=== PATIENT | female | born 1975 | race Caucasian/White ===

== ENCOUNTER 2018-07-04 05:25 | Emergency (ER) | payer MEDICAID ==
[2018-07-04 07:09] LABS: Absolute Lymphocytes (CBC) 1.7 K/uL (0.7-4.9); Absolute Monocytes 0.8 K/uL (0.1-1.3); Absolute Neutrophil 5.9 K/uL (1.8-8.0); Basophils % 0.7 % (0-1.3); Eosinophils % 2.1 % (0-4.4); MCH 27.3 pg (27.0-35.0); MCV 81.7 fL (80-100); MPV 7.5 fL (7.6-11.3); Monocytes % 8.8 % (3.3-12.3); RBC Red Blood Cell Count 4.53 M/uL (3.86-4.86)
[2018-07-04 07:10] LABS: Protime INR 0.98
[2018-07-04] MEDS ORDERED: LORazepam 2 MG/ML VIAL ONE ×2 (07:11→08:25)
[2018-07-04 07:49] LABS: ALT/SGPT 28 U/L (12-78); AST/SGOT 9 U/L (15-37); Albumin 4.2 g/dL (3.4-5.0); Alkaline Phosphatase 74 U/L (45-117); BUN Blood Urea Nitrogen 18 mg/dL (7-18); Bicarbonate 25 mmol/L (21-32); Bilirubin Direct 0.1 mg/dL (0-0.2); Bilirubin Total 0.4 mg/dL (0.2-1.0); Glucose Level 90 mg/dL (74-106); Potassium 3.4 mmol/L (3.5-5.1); Protein, Total 8.1 g/dL (6.4-8.2); Sodium Level 139 mmol/L (136-145)
[2018-07-04 07:50] LABS: Alcohol Serum/Plasma 12 mg/dL (<3)
[2018-07-04 08:04] LABS: Barbiturates NEGATIVE (NEGATIVE); Benzodiazepines NEGATIVE (NEGATIVE); Cocaine NEGATIVE (NEGATIVE); METHAMPHETAM NEGATIVE (NEGATIVE); Methadone NEGATIVE (NEGATIVE); Opiates NEGATIVE (NEGATIVE); Phencyclidine NEGATIVE (NEGATIVE); THC Cannibis POSITIVE (NEGATIVE)
[2018-07-04] MEDS ORDERED: ONDANSETRON 4 MG/2 ML VIAL ONE (08:25)
[2018-07-04] MEDS ORDERED: FAMOTIDINE 20 MG/2 ML VIAL IV ONE (08:26)
[2018-07-04] MEDS ORDERED: POTASSIUM 25 MEQ EFFERV TAB ONE (08:37)
[2018-07-04] MEDS ORDERED: WATER FOR INJ,STERILE 10 ML ONE (08:52)
[2018-07-04] MEDS ORDERED: ZIPRASIDONE MESYLA 20 MG/VIAL IM ONE (08:52)
[2018-07-04 09:34] LABS: Urine Blood TRACE (NEG); Urine Glucose NEGATIVE (NEG); Urine Protein TRACE (NEG)
--- NOTE | 2018-07-04 09:53 | ER ---
Nurse's Notes [facility] Name: Jennifer Salazar Age: 43 yrs Sex: Female : 1975 Arrival Date: 07/04/2018 Time: 05:27 Bed 16 Private MD: Diagnosis: Recreational Drug Abuse;Bipolar disorder Presentation: 07/04 05:30 Presenting complaint: Patient states: Pt states she has been smoking synthetic ea marijuana, pt stated it makes her incontinent. Pt states "I can't keep doing that shit!" Pt denies SI. states "I need help to quit this shit!". Transition of care: patient was not received from another setting of care. Onset of symptoms was July 04, 2018. Risk Assessment: Do you want to hurt yourself or someone else? Patient reports no desire to harm self or others. Initial Sepsis Screen: Does the patient meet any 2 criteria? No. Patient's initial sepsis screen is negative. Does the patient have a suspected source of infection? No. Patient's initial sepsis screen is negative. Care prior to arrival: None. 05:30 Method Of Arrival: Ambulatory ea 05:30 Acuity: BECKY 3 ea Triage Assessment: 05:41 General: Appears uncomfortable, Behavior is anxious, restless. Pain: Complains of pain ea in abdomen and headache. Historical: - Allergies: 05:41 No Known Allergies; ea - Home Meds: 05:41 Xanax 2 mg Oral tab 1 tab 3 times per day [Active]; Depakene Oral [Active]; Wellbutrin ea Oral [Active]; - PMHx: 05:41 Anxiety; Bipolar disorder; Hernia; ea - Immunization history:: Adult Immunizations up to date. - Social history:: Smoking status: Patient/guardian denies using tobacco. - Ebola Screening: : No symptoms or risks identified at this time. Screenin:43 Abuse screen: Denies threats or abuse. Nutritional screening: No deficits noted. ea Tuberculosis screening: No symptoms or risk factors identified. Fall Risk None identified. Assessment: 05:45 General: Appears uncomfortable, Behavior is anxious, restless. Pain: Complains of pain ea in headache and abdomen. Neuro: Level of Consciousness is awake, alert, obeys commands, Oriented to person, place, time, situation. Cardiovascular: Heart tones S1 S2 present Patient's skin is warm and dry. Respiratory: Airway is patent Respiratory effort is even, unlabored, Respiratory pattern is regular, symmetrical, Breath sounds are clear bilaterally. GI: Abdomen is non-distended, Bowel sounds present X 4 quads. GI: Reports diarrhea. : Reports incontinence, at times. Derm: Skin is pink, warm \\T\\ dry. 07:15 General: Appears uncomfortable, Behavior is anxious, restless, . Pain: Complains of jl7 pain in abdomen Pain currently is 10 out of 10 on a pain scale. Neuro: Level of Consciousness is awake, alert, obeys commands, Oriented to person, place, time. Cardiovascular: Patient's skin is warm and dry. Respiratory: Airway is patent Respiratory effort is even, unlabored, Respiratory pattern is regular, symmetrical. GI: Abdomen is non-distended, Bowel sounds present X 4 quads. Reports diarrhea, nausea. : Reports incontinence, Pt states "I piss and shit myself all the time." bedside commode placed in room. EENT: No signs and/or symptoms were reported regarding the EENT system. Musculoskeletal: No signs and/or symptoms reported regarding the musculoskeletal system. 08:30 Reassessment: Pt states "If you can't get a hold of Dr. Joya can you just finnegan me a jl7 prescription for 2 weeks worth of Xanax?" Provider educated pt that he is not able to prescribe 2 weeks worth of Xanax. Pt verbalizes understanding. 09:20 Reassessment: Contact Dr. Montilla per request by Dr. Boyle to speak about plan of ss care for patient. 09:30 Reassessment: Pt states "I'm ready to go. Ya'lll aint doing nothing so I'm ready to jl7 go." Provider notifid. 09:40 Reassessment: Provider at bedside discussing plan of care. jl7 Vital Signs: 05:30 BP 146 / 98; Pulse 84; Resp 18; Temp 97.6; Pulse Ox 100% ; Weight 74.84 kg; Height 5 ea ft. 7 in. (170.18 cm); Pain 8/10; 08:30 BP 129 / 94; Pulse 90; Resp 18 S; Pulse Ox 99% on R/A; jl7 05:30 Body Mass Index 25.84 (74.84 kg, 170.18 cm) ea ED Course: 05:27 Patient arrived in ED. am2 05:30 Patient has correct armband on for positive identification. Bed in low position. Call ea light in reach. 05:37 Rose Marie Sim RN is Primary Nurse. ea 05:39 Triage completed. ea 05:43 Arm band placed on right wrist. ea 05:51 Pipe Monzon MD is Attending Physician. 06:51 Inserted saline lock: 20 gauge in right antecubital area, using aseptic technique. aa1 Blood collected. 07:19 Attending Physician role handed off by Pipe Monzon MD wa 07:19 Edmar Boyle MD is Attending Physician. wa 07:21 Report given to Tom RYDER. ea 08:30 Contacted Nadira from [facility] to to request screening. [facility] 08:58 Urine Dipstick--Ancillary (enter results) Sent. dm5 09:05 [facility] called to verify necessity for patient screening. 4 09:51 Edmar Joya MD is Referral Physician. wa 09:54 No provider procedures requiring assistance completed. IV discontinued, intact, jl7 bleeding controlled, No redness/swelling at site. Pressure dressing applied. Administered Medications: 07:10 Drug: Ativan 2 mg Route: PO; ea 07:30 Follow up: Response: No adverse reaction; No change in condition jl7 08:30 Drug: Pepcid 20 mg Route: IVP; Site: right antecubital; jl7 09:00 Follow up: Response: No adverse reaction jl7 08:32 Drug: Zofran 4 mg Route: IVP; Site: right antecubital; jl7 09:00 Follow up: Response: No adverse reaction; Nausea is decreased jl7 08:39 Not Given (Other Intervention Used): Ativan 1 mg IVP once jl7 08:39 Drug: Potassium Effervescent Tablet 50 mEq Route: PO; jl7 09:56 Follow up: Response: No adverse reaction jl7 08:57 Drug: Geodon 10 mg Route: IM; Site: left deltoid; jl7 09:56 Follow up: Response: No adverse reaction; No change in condition jl7 Outcome: 09:52 Discharge ordered by . wa 09:58 Discharged to home ambulatory, with friend. jl7 09:58 Condition: stable 09:58 Discharge instructions given to patient, Instructed on discharge instructions, follow up and referral plans. Demonstrated understanding of instructions, follow-up care. 09:58 Patient left the ED. jl7 Signatures: Apolonia Bender, RN RN dm5 Aparna Arauz RN RN aa1 Angeles Pang RN RN ss Tom Rodriguez RN RN jl7 Deirdre De León Elena, RN RN ea Starr, Gregory, MD MD gs Appiah, William, MD MD wa Baxter, Mackenzie 4 Corrections: (The following items were deleted from the chart) 05:47 05:45 : ea ea 08:36 08:30 Nadira from [facility] mb4 mb4
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
[2018-07-04 10:04] VITALS: TEMP 97.6
[2018-07-04 10:05] VITALS: BP 129/94; O2SAT 99
--- NOTE | 2018-07-05 08:36 | EKG ---
Test Date: 2018-07-04 Test Time: 06:53:12 Supervisor Sewing Room: GARY MEASUREMENT RESULTS: Intervals: Rate: 70 OK: 150 QRSD: 96 QT: 406 QTc: 438 [place]: P: 65 OK: 150 QRS: 78 T: 2 INTERPRETIVE STATEMENTS: Normal sinus rhythm T wave abnormality, consider anterior ischemia Abnormal ECG Compared to ECG 10/24/2011 18:32:32 T-wave abnormality now present Possible ischemia now present Electronically Signed On 07-05-18 08:35:25 CDT by Tay Brown
== END 2018-07-04 09:58 | disposition home or self-care (01) ==
LOC: ER 05:25
DX: F12.10 Cannabis abuse, uncomplicated (principal); F31.9 Bipolar disorder, unspecified
CPT/HCPCS: 36415; 80048; 80076; 80307; 80320; 80329; 81003; 81025; 85025; 85610; 93005; 96372; 96374; 96375; 99283; J2405; J3486

== ENCOUNTER 2018-07-18 09:42 | Emergency (ER) | payer MEDICAID ==
[2018-07-18 11:18] LABS: Barbiturates NEGATIVE (NEGATIVE); Benzodiazepines NEGATIVE (NEGATIVE); Cocaine POSITIVE (NEGATIVE); METHAMPHETAM NEGATIVE (NEGATIVE); Methadone NEGATIVE (NEGATIVE); Opiates NEGATIVE (NEGATIVE); Phencyclidine NEGATIVE (NEGATIVE); THC Cannibis POSITIVE (NEGATIVE)
[2018-07-18 11:21] LABS: Absolute Lymphocytes (CBC) 1.9 K/uL (0.7-4.9); Absolute Monocytes 0.5 K/uL (0.1-1.3); Absolute Neutrophil 5.3 K/uL (1.8-8.0); Basophils % 1.3 % (0-1.3); Eosinophils % 1.9 % (0-4.4); Hematocrit 37.9 % (36.0-45.0); Lymphocytes % 23.8 % (15.3-44.8); MCH 26.4 pg (27.0-35.0); MCV 80.2 fL (80-100); MPV 7.9 fL (7.6-11.3); Monocytes % 6.5 % (3.3-12.3); RBC Red Blood Cell Count 4.73 M/uL (3.86-4.86)
[2018-07-18] MEDS ORDERED: ALPRAZOLAM 0.5 MG TABLET ONE (11:21)
[2018-07-18 11:32] LABS: Protime INR 0.89
--- NOTE | 2018-07-18 11:48 | EKG ---
Test Date: 2018-07-18 Test Time: 10:34:57 Fire Boat Engineer: GOPI MEASUREMENT RESULTS: Intervals: Rate: 66 VA: 166 QRSD: 100 QT: 424 QTc: 444 [place]: P: 59 VA: 166 QRS: 81 T: 25 INTERPRETIVE STATEMENTS: Normal sinus rhythm Normal ECG Compared to ECG 07/04/2018 06:53:12 T-wave abnormality no longer present Possible ischemia no longer present Electronically Signed On 07-18-18 11:47:54 CDT by Jose Manuel
[2018-07-18 11:50] LABS: ALT/SGPT 26 U/L (12-78); AST/SGOT 37 U/L (15-37); Albumin 3.9 g/dL (3.4-5.0); Alkaline Phosphatase 59 U/L (45-117); BUN Blood Urea Nitrogen 8 mg/dL (7-18); Bicarbonate 23 mmol/L (21-32); Bilirubin Direct < 0.1 mg/dL (0-0.2); Bilirubin Total 0.2 mg/dL (0.2-1.0); Glucose Level 105 mg/dL (74-106); Potassium 4.3 mmol/L (3.5-5.1); Protein, Total 7.7 g/dL (6.4-8.2); Sodium Level 139 mmol/L (136-145)
[2018-07-18 12:02] LABS: Urine Blood NEGATIVE (NEG); Urine Glucose NEGATIVE (NEG); Urine Protein NEGATIVE (NEG); Urine pH 7.5 (5.0-7.0)
[2018-07-18] MEDS ORDERED: KETOROLAC 30 MG/ML INJ ONE (12:46)
[2018-07-18] MEDS ORDERED: ONDANSETRON 4 MG/2 ML VIAL ONE (12:46)
--- NOTE | 2018-07-18 12:56 | RAD REPORT ---
EXAM DESCRIPTION: CT - Abdomen Pelvis W Contrast - 07/18/2018 12:43 pm CLINICAL HISTORY: Abdominal pain COMPARISON: CT April 2016, CT April 2015 TECHNIQUE: Biphasic, helical CT imaging of the abdomen and pelvis was performed following 100 ml non -ionic IV contrast. Oral contrast was given. All CT scans are performed using dose optimization technique as appropriate and may include automated exposure control or mA/KV adjustment according to patient size. FINDINGS: No suspicious findings in the lung bases. The liver, spleen, and pancreas show no suspicious findings. Gallbladder and biliary tree are also wi thout suspicious finding. Symmetric renal function is seen with no hydronephrosis or suspicious renal mass. No adrenal abnormal ity. No urinary bladder abnormality seen. The contracted state limits assessment. Uterus and right ov nishant show no suspicious findings. Left ovary contains an approximately 3.2 centimeter dermoid. This is without significant change from 2015 No dilated bowel loops or bowel wall thickening. No free air, free fluid or inflammatory stranding. No mass or bulky lymphadenopathy. There is laxity of the midline anterior abdominal wall at the umbi lical and supraumbilical level. No actual defect of the abdominal wall. This is not seen as a signifi cant finding. No suspicious bony findings. IMPRESSION: Contrast enhanced CT abdomen and pelvis showing no significant or suspicious finding. F ull findings detailed in the body of the report.
--- NOTE | 2018-07-18 15:31 | ER ---
Nurse's Notes [facility] Name: Jennifer Salazar Age: 43 yrs Sex: Female : 1975 Arrival Date: 07/18/2018 Time: 09:45 Bed 18 Private MD: Edmar Joya E Diagnosis: Suicidal ideations;Bipolar disorder Presentation: 07/18 09:56 Presenting complaint: Patient states: Reports having suicidal ideations for 2 weeks. aj Patient reports she threw all of her psych medication away because she thought she didn't need them. Attempted to get in with PCP but was refused because she does not have her insurance card. Reports she has not had her xanax in 2 days. Feels very anxious and depressed. Transition of care: patient was not received from another setting of care. Onset of symptoms was June 30, 2018. Risk Assessment: Do you want to hurt yourself or someone else? Patient reports desire/thoughts of hurting themselves or someone else. Provider notified. Initial Sepsis Screen: Does the patient meet any 2 criteria? No. Patient's initial sepsis screen is negative. Does the patient have a suspected source of infection? No. Patient's initial sepsis screen is negative. Care prior to arrival: None. 09:56 Method Of Arrival: Ambulatory 09:56 Acuity: BECKY 2 aj Triage Assessment: 10:00 General: Appears in no apparent distress. comfortable, Behavior is calm, cooperative, aj appropriate for age. Pain: Denies pain. Neuro: Level of Consciousness is awake, alert, obeys commands, Oriented to person, place, time, situation, Appropriate for age. Respiratory: Airway is patent Respiratory effort is even, unlabored, Respiratory pattern is regular, symmetrical. Derm: Skin is intact, is healthy with good turgor, Skin is pink, warm \T\ dry. normal. 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 - Social history:: Smoking status: Patient uses tobacco products, smokes one pack cigarettes per day. - Ebola Screening: : Patient negative for fever greater than or equal to 101.5 degrees Fahrenheit, and additional compatible Ebola Virus Disease symptoms Patient denies exposure to infectious person Patient denies travel to an Ebola-affected area in the 21 days before illness onset No symptoms or risks identified at this time. Screenin:02 Abuse screen: Denies threats or abuse. Denies injuries from another. Nutritional iw screening: No deficits noted. Tuberculosis screening: No symptoms or risk factors identified. Fall Risk None identified. Assessment: 11:30 General: Appears in no apparent distress. Behavior is cooperative, agitated, anxious. iw Pain: Complains of pain in head and abdomen. Neuro: Level of Consciousness is awake, alert, obeys commands, Oriented to person, place, time, Moves all extremities. Full function. Cardiovascular: Capillary refill < 3 seconds in bilateral fingers Patient's skin is warm and dry. Respiratory: Respiratory effort is even, unlabored, Respiratory pattern is regular. GI: Abdomen is flat, non-distended, Reports. Derm: Skin is intact, is healthy with good turgor. 14:53 Reassessment: Report given to ALEKSEY Kim at [facility]. iw 15:06 Reassessment: Report given to ALEKSEY Johnson at [facility]. iw Psych: 11:30 Interventions: Removed personal items and placed in bag. Patient placed in hospital iw gown. Suicide Risk Assessment: Sad Person Scale: Sex of patient: Female: Score 0 points. Age of patient: Score 0 point if patient falls outside of specified age parameters. Depression: Score 1 point if signs of depression are present. Previous Attempt: Score 0 point if patient has not previously attempted suicide. Substance Abuse: Score 1 point if patient abuses alcohol or drugs. Rational Thinking: Score 1 point if patient is lacking rational thinking. Social Support: Score 0 if social support is present/available. Organized Plan: Score 0 if patient did not have an organized plan in place. Relationship: Score 0 point if patient has a spouse or domestic partner. Chronic Sickness: Score 0 point if patient does not have a chronic illness, debilitating, or severe disorder. Safety Checks: 16:03 Subjective: Patient's mood is Delusions are denied, Hallucinations are denied Having iw thoughts of suicide. Objective: Patient is suspicious, Speech is rambling. Commitment: Patient will be a voluntary commitment. 16:04 Patient uses cocaine. iw Vital Signs: 10:00 BP 165 / 114; Pulse 97; Resp 16; Temp 97.4; Pulse Ox 98% on R/A; Weight 72.57 kg; aj Height 5 ft. 7 in. (170.18 cm); 11:27 BP 128 / 78; Pulse 94; Resp 20; Temp 98.2(O); Pulse Ox 98% on R/A; mh5 13:53 BP 115 / 90; Pulse 66; Resp 20; Temp 98.9(O); Pulse Ox 98% on R/A; mh5 10:00 Body Mass Index 25.06 (72.57 kg, 170.18 cm) aj ED Course: 09:45 Patient arrived in ED. sb2 09:46 Edmar Joya MD is Private Physician. sb2 09:59 Triage completed. aj 10:00 Arm band placed on right wrist. Patient placed in waiting room, Patient notified of aj wait time. 10:00 Safety checks: Items removed: yes. Door open/sign placed on door: yes. Family/friend mh5 present: no. Sitter present: Yes. 10:06 [facility] Cav[facility]C [facility]. kb 10:06 Terry Stewart MD is Attending Physician. kb 10:15 Safety checks: Items removed: yes. Door open/sign placed on door: yes. Family/friend mh5 present: no. Sitter present: Yes. 10:30 Safety checks: Items removed: yes. Door open/sign placed on door: yes. Family/friend mh5 present: yes. Sitter present: Yes. 10:36 EKG done, by mri special procedures technologist. reviewed by Mayra VEGA. sm3 11:00 Safety checks: Items removed: yes. Door open/sign placed on door: yes. Family/friend mh5 present: yes. Sitter present: Yes. 11:11 Yaw Machado, RN is Primary Nurse. ja1 11:11 Initial lab(s) drawn, by me, sent to lab. Inserted saline lock: 24 gauge in right iw antecubital area, using aseptic technique. Blood collected. 11:15 Safety checks: Items removed: yes. Door open/sign placed on door: yes. Family/friend mh5 present: yes. Sitter present: Yes. 11:21 Urine collected: clean catch specimen, clear. Inserted saline lock: 24 gauge in left mh5 forearm, using aseptic technique. 11:22 Patient has correct armband on for positive identification. Placed in gown. Bed in low mh5 position. Side rails up X 1. Warm blanket given. 11:26 Urine --Ancillary (enter results) Sent. mh5 11:26 Urine Dipstick--Ancillary (enter results) Sent. mh5 11:30 Safety checks: Items removed: yes. Door open/sign placed on door: yes. Family/friend mh5 present: yes. Sitter present: Yes. 11:45 Safety checks: Items removed: yes. Door open/sign placed on door: yes. Family/friend mh5 present: yes. Family/friends encouraged to stay with patient. Sitter present: Yes. 12:00 Safety checks: Items removed: yes. Door open/sign placed on door: yes. Family/friend mh5 present: no. Sitter present: Yes. 12:07 called [facility] and spoke with answering service who will call out a screener eb to come evaluate a transfer. 12:15 Safety checks: Items removed: yes. Door open/sign placed on door: yes. Family/friend mh5 present: yes. Family/friends encouraged to stay with patient. Sitter present: Yes. 12:30 Safety checks: Items removed: yes. Door open/sign placed on door: yes. Family/friend mh5 present: yes. Sitter present: Yes. 12:43 CT Abd/Pelvis - W/Contrast In Process Unspecified. EDMS 12:43 CT completed. Patient tolerated procedure well. Patient moved to CT via wheelchair. vr Patient moved back from CT. 13:00 Safety checks: Items removed: yes. Door open/sign placed on door: yes. Family/friend mh5 present: yes. Family/friends encouraged to stay with patient. Sitter present: Yes. 13:15 Safety checks: Items removed: yes. Door open/sign placed on door: yes. Family/friend mh5 present: yes. Sitter present: Yes. 13:30 Safety checks: Items removed: yes. Door open/sign placed on door: yes. Family/friend mh5 present: yes. Family/friends encouraged to stay with patient. Sitter present: Yes. 13:45 Safety checks: Items removed: yes. Door open/sign placed on door: yes. Family/friend mh5 present: yes. Sitter present: Yes. 13:57 Aleida from [facility] here to screen patient for discharge or transfer. eb 14:00 Safety checks: Items removed: yes. Door open/sign placed on door: yes. Family/friend mh5 present: no. Other: Aleida from [facility] is in with patient . Sitter present: Yes. 14:30 Safety checks: Items removed: yes. Door open/sign placed on door: yes. Family/friend mh5 present: yes. Family/friends encouraged to stay with patient. Sitter present: Yes. 14:46 Safety checks: Items removed: yes. Door open/sign placed on door: yes. Family/friend em1 present: yes. Family/friends encouraged to stay with patient. Sitter present: Yes. 14:46 Chiquita from [facility] called to get nurse to nurse completed. eb 15:00 Safety checks: Items removed: yes. Door open/sign placed on door: yes. Family/friend em1 present: yes. Family/friends encouraged to stay with patient. Sitter present: Yes. 15:15 Safety checks: Items removed: yes. Door open/sign placed on door: yes. Family/friend mh5 present: yes. Family/friends encouraged to stay with patient. Sitter present: Yes. 15:30 Safety checks: Items removed: yes. Door open/sign placed on door: yes. Family/friend mh5 present: yes. Sitter present: Yes. 15:45 Safety checks: Items removed: yes. Door open/sign placed on door: yes. Family/friend mh5 present: yes. Family/friends encouraged to stay with patient. Sitter present: Yes. 16:00 Safety checks: Items removed: yes. Door open/sign placed on door: yes. Family/friend mh5 present: yes. Sitter present: Yes. 16:02 No provider procedures requiring assistance completed. IV discontinued, intact, iw bleeding controlled, No redness/swelling at site. Pressure dressing applied. 16:04 Primary Nurse role handed off by Yaw Machado RN iw 16:04 Marian Dawson, RN is Primary Nurse. iw Administered Medications: 11:18 Drug: XANax Tablet 0.5 mg Route: PO; ja1 16:05 Follow up: Response: No adverse reaction; Anxiety decreased iw 12:53 Drug: TORadol 30 mg Route: IVP; Site: right antecubital; ja1 16:05 Follow up: Response: No adverse reaction; Pain is decreased iw 12:53 Drug: Zofran 4 mg Route: IVP; Site: right antecubital; ja1 16:04 Follow up: Response: No adverse reaction iw Outcome: 15:31 ER care complete, transfer ordered by MD. lima 16:01 Transferred by ground EMS , transported to [facility] . Transfer form iw completed. X-rays sent w/ patient. 16:01 Condition: good 16:01 Discharge instructions given to patient, family, Instructed on the need for transfer. 16:05 Patient left the ED. iw Signatures: Dispatcher [employer] EDMayra Mckeon, PICK UP-C PICK UP-Deirdre Iglesias RN Marian White RN Fan Beckford Steph Griggs Maria 5 Yaw Machado RN RN ja1 Yi Hudson2 Elizabeth Winchester Shakira 3 Corrections: (The following items were deleted from the chart) 10:01 09:56 Risk Assessment: Do you want to hurt yourself or someone else? Patient reports no aj desire to harm self or others. aj
--- NOTE | 2018-07-18 15:31 | EDPHYS ---
Physician Documentation [facility] Name: Jennifer Salazar Age: 43 yrs Sex: Female : 1975 Arrival Date: 07/18/2018 Time: 09:45 Bed 18 Private MD: Edmar Joya E ED Physician Terry Stewart HPI: 07/18 10:41 This 43 yrs old Female presents to ER via Ambulatory with complaints of kb Depression, Anxiety, Suicidal Ideation. 10:41 The patient presents to the emergency department with anxiety, depression. Onset: The kb symptoms/episode began/occurred today. Past psychiatric history: Prior diagnosis: bipolar disorder, Psychiatric medications include: Xanax, Zoloft. Associated signs and symptoms: Pertinent positives; depression, suicide ideation. Severity of symptoms: At their worst the symptoms were moderate in the emergency department the symptoms are unchanged. The patient has not experienced similar symptoms in the past. The patient has not recently seen a physician. "I threw away all of my meds 2 weeks ago and now I'm suicidal." States she normally take ambien, zoloft and xanax. Went to PCP for appt today and said they wouldn't see her . FIFTH HAND: 10:00 LMP 07/04/2018 aj Historical: - Allergies: 10:00 No Known Allergies; aj - Home Meds: 10:00 Zoloft 50 mg Oral tab [Active]; Xanax 2 mg Oral tab 1 tab 3 times per day [Active]; aj Prozac Oral [Active]; Ambien Oral [Active]; - PMHx: 10:00 Anxiety; Bipolar disorder; Hernia; aj - Immunization history:: Adult Immunizations up to date. - Social history:: Smoking status: Patient uses tobacco products, smokes one pack cigarettes per day. - Ebola Screening: : Patient negative for fever greater than or equal to 101.5 degrees Fahrenheit, and additional compatible Ebola Virus Disease symptoms Patient denies exposure to infectious person Patient denies travel to an Ebola-affected area in the 21 days before illness onset No symptoms or risks identified at this time. ROS: 10:43 Constitutional: Negative for fever, chills, and weight loss, Cardiovascular: Negative kb for chest pain, palpitations, and edema, Respiratory: Negative for shortness of breath, cough, wheezing, and pleuritic chest pain, Abdomen/GI: Negative for abdominal pain, nausea, vomiting, diarrhea, and constipation, Back: Negative for injury and pain, : Negative for injury, bleeding, discharge, and swelling, MS/Extremity: Negative for injury and deformity, Skin: Negative for injury, rash, and discoloration, Neuro: Negative for headache, weakness, numbness, tingling, and seizure. 10:43 Psych: Positive for anxiety, depression, suicidal ideation. Exam: 10:43 Constitutional: This is a well developed, well nourished patient who is awake, alert, kb and in no acute distress. Head/Face: Normocephalic, atraumatic. ENT: Nares patent. No nasal discharge, no septal abnormalities noted. Tympanic membranes are normal and external auditory canals are clear. Oropharynx with no redness, swelling, or masses, exudates, or evidence of obstruction, uvula midline. Mucous membranes moist. Neck: Trachea midline, no thyromegaly or masses palpated, and no cervical lymphadenopathy. Supple, full range of motion without nuchal rigidity, or vertebral point tenderness. No Meningismus. Chest/axilla: Normal chest wall appearance and motion. Nontender with no deformity. No lesions are appreciated. Cardiovascular: Regular rate and rhythm with a normal S1 and S2. No gallops, murmurs, or rubs. Normal PMI, no JVD. No pulse deficits. Respiratory: Lungs have equal breath sounds bilaterally, clear to auscultation and percussion. No rales, rhonchi or wheezes noted. No increased work of breathing, no retractions or nasal flaring. Abdomen/GI: Soft, non-tender, with normal bowel sounds. No distension or tympany. No guarding or rebound. No evidence of tenderness throughout. Skin: Warm, dry with normal turgor. Normal color with no rashes, no lesions, and no evidence of cellulitis. MS/ Extremity: Pulses equal, no cyanosis. Neurovascular intact. Full, normal range of motion. Neuro: Awake and alert, GCS 15, oriented to person, place, time, and situation. Cranial nerves II-XII grossly intact. Motor strength 5/5 in all extremities. Sensory grossly intact. Cerebellar exam normal. Normal gait. 10:43 Psych: Behavior/mood is cooperative, anxious, Affect is animated, Oriented to person, place, time, Patient having thoughts of suicide. Denies suicidal plan. Judgement / Insight is normal. Memory is normal. Delusions/hallucinations are not present. Vital Signs: 10:00 BP 165 / 114; Pulse 97; Resp 16; Temp 97.4; Pulse Ox 98% on R/A; Weight 72.57 kg; aj Height 5 ft. 7 in. (170.18 cm); 11:27 BP 128 / 78; Pulse 94; Resp 20; Temp 98.2(O); Pulse Ox 98% on R/A; mh5 13:53 BP 115 / 90; Pulse 66; Resp 20; Temp 98.9(O); Pulse Ox 98% on R/A; mh5 10:00 Body Mass Index 25.06 (72.57 kg, 170.18 cm) aj MDM: 10:06 Patient medically screened. kb 10:44 Data reviewed: vital signs, nurses notes. Data interpreted: Pulse oximetry: on room air kb is 98 %. Interpretation: normal. 12:04 ED course: [facility] called to come evaluate patient. kb 12:23 ED course: Pt now complaining of generalized abd pain and nausea. kb 14:14 Counseling: I had a detailed discussion with the patient and/or guardian regarding: the kb historical points, exam findings, and any diagnostic results supporting the discharge/admit diagnosis, lab results, radiology results, the need to transfer to another facility. ED course: [facility] screener recommends outpatient therapy for pt. Pt does not have a plan to hurt herself, states "I was just scared and need my meds." Pt educated that she needs to follow up with Dr Joya and she said she would kill herself if we discharged her without her medications. 07/18 10:15 Order name: Acetaminophen; Complete Time: 11:53 kb 07/18 10:15 Order name: Basic Metabolic Panel; Complete Time: 11:53 kb 07/18 10:15 Order name: CBC with Diff; Complete Time: 11:26 kb 07/18 10:15 Order name: ETOH Level; Complete Time: 11:41 kb 07/18 10:15 Order name: Hepatic Function; Complete Time: 11:53 kb 07/18 10:15 Order name: PT-INR; Complete Time: 12:01 kb 07/18 10:15 Order name: Ptt, Activated; Complete Time: 12:01 kb 07/18 10:15 Order name: Salicylate; Complete Time: 12:16 kb 07/18 10:15 Order name: Urine Drug Screen; Complete Time: 11:41 kb 07/18 11:10 Order name: Urine Dipstick--Ancillary (enter results); Complete Time: 12:04 eb 07/18 11:10 Order name: Urine --Ancillary (enter results); Complete Time: 12:04 eb 07/18 12:22 Order name: CT Abd/Pelvis - W/Contrast; Complete Time: 13:01 kb 07/18 10:15 Order name: Urine Test (obtain specimen); Complete Time: 11:26 kb 07/18 10:15 Order name: EKG; Complete Time: 10:16 kb 07/18 10:15 Order name: EKG - Nurse/Tech; Complete Time: 15:55 kb 07/18 10:15 Order name: IV Saline Lock; Complete Time: 11:11 kb 07/18 10:15 Order name: Labs collected and sent; Complete Time: 11:11 kb 07/18 10:15 Order name: Urine Dipstick-Ancillary (obtain specimen); Complete Time: 11:26 kb 07/18 11:26 Order name: Diet Regular; Complete Time: 11:26 mh5 07/18 11:27 Order name: Vital Signs; Complete Time: 16:04 kb Administered Medications: 11:18 Drug: XANax Tablet 0.5 mg Route: PO; ja1 16:05 Follow up: Response: No adverse reaction; Anxiety decreased iw 12:53 Drug: TORadol 30 mg Route: IVP; Site: right antecubital; ja1 16:05 Follow up: Response: No adverse reaction; Pain is decreased iw 12:53 Drug: Zofran 4 mg Route: IVP; Site: right antecubital; ja1 16:04 Follow up: Response: No adverse reaction iw Disposition: 18:15 I agree with the assessment and plan of care. kdr Disposition: 07/18/18 15:31 Transfer ordered to Psych Facility. Diagnosis are Suicidal ideations, Bipolar disorder. - Reason for transfer: Higher level of care. - Accepting physician is Dr Davalos at [facility]. - Condition is Stable. - Problem is new. - Symptoms are unchanged. Signatures: Dispatcher [employer] EDMayra Mckeon, FILLING TECHNICIAN-C FILLING TECHNICIAN-Ckb Deirdre Denis, RN RN Terry Morton MD MD kdr Williams, Irene, RN RN iw Yaw Machado RN RN ja1 Corrections: (The following items were deleted from the chart) 14:19 14:14 ED course: [facility] ERnayeli recommends outpatient therapy for pt. Pt does not kb have a plan to hurt herself, states "I was just scared and need my meds." . kb 15:31 14:14 Counseling: I had a detailed discussion with the patient and/or guardian regarding: the historical points, exam findings, and any diagnostic results supporting the discharge/admit diagnosis, lab results, radiology results, the need for outpatient follow up, a psychiatrist, to return to the emergency department if symptoms worsen or persist or if there are any questions or concerns that arise at home, kb 16:05 15:31 07/18/2018 15:31 Transfer ordered to [facility]. Diagnosis is Suicidal iw ideations; Bipolar disorder. Reason for transfer: Higher level of care. Accepting physician is Dr Davalos at [facility]. Condition is Stable. Problem is new. Symptoms are unchanged. kb
[2018-07-18 16:19] VITALS: O2SAT 98
[2018-07-18 16:22] VITALS: BP 115/90; TEMP 98.9
== END 2018-07-18 16:05 ==
LOC: ER 09:42
DX: F31.9 Bipolar disorder, unspecified (principal); F41.9 Anxiety disorder, unspecified; F17.210 Nicotine dependence, cigarettes, uncomplicated
CPT/HCPCS: 36415; 74177; 80048; 80076; 80307; 80320; 80329; 81003; 81025; 85025; 85610; 85730; 93005; 96374; 96375; 99285; J2405; Q9967

== ENCOUNTER 2018-09-12 16:38 | Inpatient (IN) | payer MEDICAID, OTHER ==
[2018-09-12] MEDS ORDERED: NA CHLORIDE 0.9% 1,000 ML ONE (16:59)
[2018-09-12 17:17] LABS: Absolute Lymphocytes (CBC) 2.3 K/uL (0.7-4.9); Absolute Monocytes 0.5 K/uL (0.1-1.3); Absolute Neutrophil 5.5 K/uL (1.8-8.0); Basophils % 1.3 % (0-1.3); Eosinophils % 2.1 % (0-4.4); Hematocrit 33.2 % (36.0-45.0); Lymphocytes % 26.8 % (15.3-44.8); MCH 26.4 pg (27.0-35.0); MCV 77.6 fL (80-100); MPV 7.3 fL (7.6-11.3); Monocytes % 5.5 % (3.3-12.3); RBC Red Blood Cell Count 4.27 M/uL (3.86-4.86)
[2018-09-12 17:22] LABS: Protime INR 0.92
[2018-09-12] MEDS ORDERED: ONDANSETRON 4 MG/2 ML VIAL ONE ×2 (17:37→19:55)
[2018-09-12 17:59] LABS: Barbiturates NEGATIVE (NEGATIVE); Benzodiazepines POSITIVE (NEGATIVE); Cocaine POSITIVE (NEGATIVE); METHAMPHETAM NEGATIVE (NEGATIVE); Methadone NEGATIVE (NEGATIVE); Opiates NEGATIVE (NEGATIVE); Phencyclidine NEGATIVE (NEGATIVE); THC Cannibis NEGATIVE (NEGATIVE)
[2018-09-12 17:59] LABS: ALT/SGPT 21 U/L (12-78); AST/SGOT 22 U/L (15-37); Albumin 3.9 g/dL (3.4-5.0); Alkaline Phosphatase 55 U/L (45-117); BUN Blood Urea Nitrogen 15 mg/dL (7-18); Bicarbonate 24 mmol/L (21-32); Bilirubin Direct < 0.1 mg/dL (0-0.2); Bilirubin Total 0.2 mg/dL (0.2-1.0); Potassium 3.7 mmol/L (3.5-5.1); Protein, Total 7.3 g/dL (6.4-8.2); Sodium Level 142 mmol/L (136-145)
[2018-09-12 18:02] LABS: Glucose Level 48 mg/dL (74-106)
[2018-09-12] MEDS ORDERED: D50W 25 GM/50 ML SYRINGE IV ONE ×2 (18:15→19:15)
[2018-09-12 18:37] LABS: Urine Blood 3+ (NEG); Urine Glucose NEGATIVE (NEG); Urine Protein 2+ (NEG); Urine pH 7.5 (5.0-7.0)
[2018-09-12] MEDS ORDERED: DIPHENOX/ATROP SULF 1 TAB PO ONE (18:52)
[2018-09-12] MEDS ORDERED: LORazepam 2 MG/ML VIAL ONE (18:52)
--- NOTE | 2018-09-12 19:02 | ER ---
Nurse's Notes [facility] Name: Jennifer Salazar Age: 43 yrs Sex: Female : 1975 Arrival Date: 09/12/2018 Time: 16:41 Bed 6 Private MD: Diagnosis: Drug overdose. Substance abuse. Hypoglycemia. 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 bp Transition of care: patient was not received from another setting of care. Onset of symptoms was September 12, 2018 at 15:40. Risk Assessment: Do you want to hurt yourself or someone else? Other: UNCLEAR. Initial Sepsis Screen: Does the patient meet any 2 criteria? No. Patient's initial sepsis screen is negative. Does the patient have a suspected source of infection? No. Patient's initial sepsis screen is negative. Care prior to arrival: IV initiated. 20 GA, in the right antecubital area, Glucose check: 116. 16:41 Method Of Arrival: EMS: [facility] bp 16:41 Acuity: BECKY 2 bp Triage Assessment: 16:45 General: Appears distressed, comfortable, obese, Behavior is cooperative, agitated, bp Smells of THC. General: PT ORIGINALLY REPORTS TAKING 44 TABS ZOLOFT "TO SLEEP CAUSE I'M SAD" 2/2 BEING OUT OF XANAX AND NOT RECEIVING MORE FROM HOME HEALTH TODAY. PILL BOTTLES FOUND IN PT POSSESSION SHOW A QTY OF 15 ON ZOLOFT AND A XANAX PRESCRIPTION FILLED FIVE DAYS AGO. Pain: Denies pain. 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 - Social history:: Smoking status: Patient uses tobacco products, unknown amount. - Ebola Screening: : Patient negative for fever greater than or equal to 101.5 degrees Fahrenheit, and additional compatible Ebola Virus Disease symptoms Patient denies exposure to infectious person Patient denies travel to an Ebola-affected area in the 21 days before illness onset No symptoms or risks identified at this time. - Family history:: not pertinent. - Hospitalizations: : No recent hospitalization is reported. Screenin:49 Abuse screen: Denies threats or abuse. Denies injuries from another. Nutritional bp screening: No deficits noted. Tuberculosis screening: No symptoms or risk factors identified. Fall Risk None identified. Assessment: 16:45 General: PT NOW ASSERTING THAT "I DIDN'T TAKE THAT MANY, SO YOU CAN GIVE ME MEDICINE bp FOR MY NERVES." PT ALSO OBSERVED INDUCING VOMITING WITH FINGER DOWN THROAT AND STATING "THE LAST TIME THE AMBULANCE PICKED ME UP THEY GAVE ME MEDICINE FOR MY NAUSEA THAT MADE ME FEEL GOOD. I NEED THAT". 17:00 General: Appears in no apparent distress. uncomfortable, obese, unkempt, Behavior is ph agitated, anxious, fussy, restless. Pain: Complains of pain in abdomen. Neuro: Level of Consciousness is awake, alert, obeys commands, Oriented to person, place, time, situation. Cardiovascular: Capillary refill < 3 seconds Patient's skin is warm and dry. Respiratory: Airway is patent Respiratory effort is even, unlabored. GI: Reports lower abdominal pain, upper abdominal pain, nausea. Derm: Skin is intact, is healthy with good turgor, Skin is pink, warm \\T\\ dry. Musculoskeletal: Circulation, motion, and sensation intact. Range of motion: intact in all extremities. 18:32 Reassessment: Patient and/or family updated on plan of care and expected duration. Pain ph level reassessed. Patient is alert, oriented x 3, equal unlabored respirations, skin warm/dry/pink. Pt c/o nausea and abdominal pain 10/10, up to bedside commode to have a bowel movement, stool normal in appearance, pt continues to deny SI, states, " I was just trying to calm my nerves.". 18:45 Reassessment: Patient appears in no apparent distress at this time. Pt up to bedside ph commode to have BM, stool noted to be loose/diarrhea, Dr Cheng at bedside to speak w/ pt, pt admits to using stimulants last night, states, " I was trying to come down and I was out of Xanax so I took my Zoloft.". 19:25 Reassessment: BGL 41, Dr. Mullen gave VO for amp of D50 and to check BGL in one hour and tl2 assess for discharge. Pt c/o of feeling sick to stomach and is continuing to have diarrhea. 20:10 Reassessment: BGL only increased to 48, MD notified. stated he will order for tl2 admission. 21:50 Reassessment: Mental [facility] [place] here for JO ANN he spoke to Dr Machado who states he bb is concerned pt may be suicidal. 22:06 Reassessment: Sitter at bedside. Pt has received warrant. Awaiting bed assignment in tl2 ICU. 23:00 Reassessment: Patient appears in no apparent distress at this time. Patient and/or tl2 family updated on plan of care and expected duration. Pain level reassessed. Patient is alert, oriented x 3, equal unlabored respirations, skin warm/dry/pink. Pt informed that she would be going to ICU. ICU nurse ready to receive patient. Vital Signs: 16:48 BP 125 / 86; Pulse 63; Resp 20; Temp 98; Pulse Ox 98% ; Weight 81.65 kg; bp 18:00 BP 137 / 92; Pulse 65; Resp 22; Pulse Ox 98% on R/A; ph 19:51 BP 121 / 68; Pulse 95; Resp 20; Pulse Ox 97% on R/A; tl2 22:07 BP 108 / 64; Pulse 82; Resp 18; Pulse Ox 98% on R/A; tl2 ED Course: 16:41 Patient arrived in ED. bp 16:43 Tray Cheng MD is Attending Physician. rn 16:44 Triage completed. bp 16:45 Amy Padilla, RN is Primary Nurse. ph 16:46 EKG done, by public health sanitarian technician. reviewed by Tray Cheng MD. sm3 16:49 Maintain EMS IV. Dressing intact. Good blood return noted. Site clean \\T\\ dry. Gauge \\T\\ bp site: 20 GAUGE R AC. 16:49 Arm band placed on. bp 16:49 Patient has correct armband on for positive identification. Bed in low position. Call bp light in reach. Side rails up X2. 17:32 Urine collected: clean catch specimen, cloudy, blood tinged. jb1 18:58 No provider procedures requiring assistance completed. ph 20:04 Attending Physician role handed off by Tray Cheng MD pkl 20:04 Isael Mullen MD is Attending Physician. pkl 20:12 Isha Houston MD is Hospitalizing Provider. pkl 23:00 Patient admitted, IV remains in place. tl2 Administered Medications: 17:14 Drug: NS 0.9% 1000 ml Route: IV; Rate: 1000 ml; Site: right antecubital; hb 18:54 Follow up: Response: No adverse reaction; IV Status: Completed infusion ph 17:32 Drug: Zofran 4 mg Route: IVP; Site: right antecubital; ph 18:55 Follow up: Response: No adverse reaction; Vomiting decreased ph 18:18 Drug: D50W 50 ml Route: IVP; Site: right antecubital; ph 18:55 Follow up: Response: No adverse reaction ph 18:53 Drug: Ativan 2 mg Route: IVP; Site: right antecubital; ph 18:59 Follow up: Response: No adverse reaction ph 18:54 Drug: LoMOTIL 2 tabs Route: PO; ph 18:59 Follow up: Response: No adverse reaction ph 19:14 Drug: D50W 50 ml Route: IVP; Site: right antecubital; ph 20:44 Follow up: Response: BGL increased to 48, MD notified tl2 19:51 Drug: Zofran 4 mg Route: IVP; Site: right antecubital; tl2 20:30 Follow up: Response: No adverse reaction; Nausea is decreased tl2 20:05 Not Given (Other Intervention Used): NS 0.45 % 1000 ml IV at 125 ml/hr continuous tl2 20:44 Drug: morphine 2 mg Route: IVP; Site: right antecubital; tl2 21:10 Follow up: Response: No adverse reaction; Pain is decreased tl2 Point of Care Testing: Blood Glucose: 19:01 Blood Glucose: 41 mg/dL; ph 20:03 Blood Glucose: 48 mg/dL; tl2 21:53 Blood Glucose: 82 mg/dL; tl2 22:52 Blood Glucose: 68 mg/dL; tl2 Ranges: Outcome: 19:01 Discharge ordered by . rn 20:14 Decision to Hospitalize by Provider. pkl 23:00 Admitted to ICU accompanied by nurse, accompanied by tech, via stretcher, room 1, with tl2 chart, Report called to ALEKSEY Loving 23:00 Condition: stable 23:00 Discharge instructions given to patient, Instructed on the need for admit. 23:24 Patient left the ED. tl2 Signatures: Job Sanchez jb1 Isael Mullen MD MD pkMarisa Mixon RN RN bb Tray Cheng MD MD rn Hall, Patricia, RN RN ph Baxter, Heather, RN RN hb Knox, Taylor, RN RN tl2 Tawanda Bales RN RN Brigitte Bucio 3
--- NOTE | 2018-09-12 19:02 | EDPHYS ---
Physician Documentation [facility] Name: Jennifer Salazar Age: 43 yrs Sex: Female : 1975 Arrival Date: 09/12/2018 Time: 16:41 Bed 6 Private MD: ED Physician Isael Mullen HPI: 09/12 18:10 This 43 yrs old Female presents to ER via EMS with complaints of Overdose. rn 18:10 The patient presents to the emergency department with a possible overdose. Context: rn Method: the patient has a confirmed or suspected ingestion, Time: the patient's OD/poisoning occurred at an unknown time. Severity of symptoms: At their worst the symptoms were mild in the emergency department the symptoms are unchanged. It is unknown whether or not the patient has had similar symptoms in the past. Patient brought in by EMS, per report, patient possibly overdosed on unknown number of pills, patient initially reports 30 zoloft, from her prescribed medication, then when asked again stated thinks took about 15, then proceeded to deny ingestion. Cannot tell me exact time of ingestion, denies coingestion. Reports was trying to sleep, has been feeling anxious. . 18:14 Patient reports feels sad and anxious, ran out of her xanax, even though just filled it rn a few days ago, begging for anxiety medication right now, reports nausea and states very stressed. . 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 - Social history:: Smoking status: Patient uses tobacco products, unknown amount. - Ebola Screening: : Patient negative for fever greater than or equal to 101.5 degrees Fahrenheit, and additional compatible Ebola Virus Disease symptoms Patient denies exposure to infectious person Patient denies travel to an Ebola-affected area in the 21 days before illness onset No symptoms or risks identified at this time. - Family history:: not pertinent. - Hospitalizations: : No recent hospitalization is reported. ROS: 18:14 Constitutional: Negative for fever, chills, and weight loss, Eyes: Negative for injury, rn pain, redness, and discharge, Cardiovascular: Negative for chest pain, palpitations, and edema, Respiratory: Negative for shortness of breath, cough, wheezing, and pleuritic chest pain, Abdomen/GI: Negative for abdominal pain, nausea, vomiting, diarrhea, and constipation, MS/Extremity: Negative for injury and deformity, Skin: Negative for injury, rash, and discoloration, Neuro: Negative for headache, weakness, numbness, tingling, and seizure, Psych: + anxiety and depression, denies suicidal and homicidal ideation Exam: 18:20 Constitutional: This is a well developed, well nourished patient who is awake, alert, rn appears anxious, tearful Head/Face: Normocephalic, atraumatic. Eyes: Pupils equal round and reactive to light, extra-ocular motions intact. Lids and lashes normal. Conjunctiva and sclera are non-icteric and not injected. Cornea within normal limits. Periorbital areas with no swelling, redness, or edema. Cardiovascular: Regular rate and rhythm with a normal S1 and S2. No gallops, murmurs, or rubs. Normal PMI, no JVD. No pulse deficits. Respiratory: Lungs have equal breath sounds bilaterally, clear to auscultation and percussion. No rales, rhonchi or wheezes noted. No increased work of breathing, no retractions or nasal flaring. Abdomen/GI: Soft, non-tender, with normal bowel sounds. No distension or tympany. No guarding or rebound. No evidence of tenderness throughout. MS/ Extremity: Pulses equal, no cyanosis. Neurovascular intact. Full, normal range of motion. Equal circumference. Neuro: Awake and alert, GCS 15, oriented to person, place, time, and situation. Cranial nerves II-XII grossly intact. Motor strength 5/5 in all extremities. Sensory grossly intact. Vital Signs: 16:48 BP 125 / 86; Pulse 63; Resp 20; Temp 98; Pulse Ox 98% ; Weight 81.65 kg; bp 18:00 BP 137 / 92; Pulse 65; Resp 22; Pulse Ox 98% on R/A; ph 19:51 BP 121 / 68; Pulse 95; Resp 20; Pulse Ox 97% on R/A; tl2 22:07 BP 108 / 64; Pulse 82; Resp 18; Pulse Ox 98% on R/A; tl2 MDM: 16:43 Patient medically screened. rn 18:29 ED course: acquaintance here states she has been doing drugs, holed up in a room with rn someone else recently and known to use drugs, cocaine + here. . 18:42 Differential diagnosis:. Data reviewed: vital signs, nurses notes, lab test result(s), rn EKG, and as a result, I will discharge patient. ED course: Spoke with patient with bystander and nurse in room, now admits to using cocaine and synthetic marijuana late last night, it is "killing her", and needs help. Reports taking zoloft to help come down from drugs and was not trying to kill herself. REports just needs some medication to make her feel better and then can go home. Counseled her on use of drugs and lack of antidote to get rid of her drug related symptoms that she is having because of her choice to use drugs. She understands. Told her to stop using drugs.. 19:00 Counseling: I had a detailed discussion with the patient and/or guardian regarding: the rn historical points, exam findings, and any diagnostic results supporting the discharge/admit diagnosis, lab results, the need for outpatient follow up, to return to the emergency department if symptoms worsen or persist or if there are any questions or concerns that arise at home. 09/12 16:44 Order name: Acetaminophen; Complete Time: 18:36 rn 09/12 16:44 Order name: Basic Metabolic Panel; Complete Time: 18:36 rn 09/12 16:44 Order name: CBC with Diff; Complete Time: 18:36 rn 09/12 16:44 Order name: ETOH Level; Complete Time: 18:36 rn 09/12 16:44 Order name: Hepatic Function; Complete Time: 18:36 rn 09/12 16:44 Order name: PT-INR; Complete Time: 18:36 rn 09/12 16:44 Order name: Ptt, Activated; Complete Time: 18:36 rn 09/12 16:44 Order name: Salicylate; Complete Time: 18:36 rn 09/12 16:44 Order name: Urine Drug Screen; Complete Time: 18:36 rn 09/12 17:34 Order name: Urine Dipstick--Ancillary (enter results); Complete Time: 18:38 eb 09/12 17:34 Order name: Urine --Ancillary (enter results); Complete Time: 18:38 eb 09/12 16:44 Order name: Urine Test (obtain specimen); Complete Time: 17:14 rn 09/12 16:44 Order name: EKG; Complete Time: 16:45 rn 09/12 16:44 Order name: EKG - Nurse/Tech; Complete Time: 16:50 rn 09/12 16:44 Order name: IV Saline Lock; Complete Time: 17:03 rn 09/12 16:44 Order name: Labs collected and sent; Complete Time: 17:03 rn 09/12 16:44 Order name: Urine Dipstick-Ancillary (obtain specimen); Complete Time: 17:14 rn Administered Medications: 17:14 Drug: NS 0.9% 1000 ml Route: IV; Rate: 1000 ml; Site: right antecubital; hb 18:54 Follow up: Response: No adverse reaction; IV Status: Completed infusion ph 17:32 Drug: Zofran 4 mg Route: IVP; Site: right antecubital; ph 18:55 Follow up: Response: No adverse reaction; Vomiting decreased ph 18:18 Drug: D50W 50 ml Route: IVP; Site: right antecubital; ph 18:55 Follow up: Response: No adverse reaction ph 18:53 Drug: Ativan 2 mg Route: IVP; Site: right antecubital; ph 18:59 Follow up: Response: No adverse reaction ph 18:54 Drug: LoMOTIL 2 tabs Route: PO; ph 18:59 Follow up: Response: No adverse reaction ph 19:14 Drug: D50W 50 ml Route: IVP; Site: right antecubital; ph 20:44 Follow up: Response: BGL increased to 48, MD notified tl2 19:51 Drug: Zofran 4 mg Route: IVP; Site: right antecubital; tl2 20:30 Follow up: Response: No adverse reaction; Nausea is decreased tl2 20:05 Not Given (Other Intervention Used): NS 0.45 % 1000 ml IV at 125 ml/hr continuous tl2 20:44 Drug: morphine 2 mg Route: IVP; Site: right antecubital; tl2 21:10 Follow up: Response: No adverse reaction; Pain is decreased tl2 Point of Care Testing: Blood Glucose: 19:01 Blood Glucose: 41 mg/dL; ph 20:03 Blood Glucose: 48 mg/dL; tl2 21:53 Blood Glucose: 82 mg/dL; tl2 22:52 Blood Glucose: 68 mg/dL; tl2 Ranges: Critical Glucose Levels:Adult <50 mg/dl or >400 mg/dl <40 mg/dl or >180 mg/dl Disposition: 09/12/18 20:14 Hospitalization ordered by Isha Houston for Observation. Preliminary diagnosis is Drug overdose. Substance abuse. Hypoglycemia. Suicidal ideations. - Bed requested for Intensive Care Unit. - Status is Observation. tl2 - Condition is Stable. - Problem is new. - Symptoms are unchanged. UTI on Admission? No Signatures: Dispatcher [employer] EDMS Sahara Jean, RN Isael Pond MD MD pkTray Botello MD MD rn Hall, Patricia, RN RN Aleida Harper RN RN Lisbeth Reid RN RN tl2 Tawanda Bales RN RN bp Corrections: (The following items were deleted from the chart) 20:12 19:01 09/12/2018 19:01 Discharged to Home. Impression: Drug abuse counseling and pkl surveillance; Cocaine abuse with unspecified cocaine-induced disorder. Condition is Stable. Forms are Medication Reconciliation Form, Thank You Letter, Antibiotic Education, Prescription Opioid Use. Follow up: Private Physician; When: As needed; Reason: Recheck today's complaints, Re-evaluation by your physician. Problem is new. Symptoms have improved. rn 20:37 20:14 Hospitalization Ordered by Isha Houston MD for Observation. Preliminary pkl diagnosis is Drug overdose. Substance abuse. Hypoglycemia. Bed requested for Telemetry/MedSurg (observation). Status is Observation. Condition is Stable. Problem is new. Symptoms are unchanged. UTI on Admission? No. pkl 22:21 20:37 09/12/2018 20:14 Hospitalization Ordered by Isha Houston MD for Observation. kl Preliminary diagnosis is Drug overdose. Substance abuse. Hypoglycemia. Suicidal ideations. Bed requested for Intensive Care Unit. Status is Observation. Condition is Stable. Problem is new. Symptoms are unchanged. UTI on Admission? No. pkl 23:24 22:21 09/12/2018 20:14 Hospitalization Ordered by Isha Houston MD for Observation. tl2 Preliminary diagnosis is Drug overdose. Substance abuse. Hypoglycemia. Suicidal ideations. Bed requested for Intensive Care Unit. Status is Observation. Condition is Stable. Problem is new. Symptoms are unchanged. UTI on Admission? No. kl
[2018-09-12] MEDS ORDERED: NA CHLORIDE 0.9% 500 ML ONE (19:55)
[2018-09-12] MEDS ORDERED: MORPHINE 4 MG/ML SYR ONE (20:49)
--- NOTE | 2018-09-12 20:51 | P.HP ---
Certification for Inpatient Patient admitted to: Observation With expected LOS: <2 Midnights Practitioner: I am a practitioner with admitting privileges, knowledge of patient current condition, hospital course, and medical plan of care. Services: Services provided to patient in accordance with Admission requirements found in Title 42 Section 412.3 of the Code of Federal Regulations Patient History Date of Service: 09/12/18 Reason for admission: Drugs overdose History of Present Illness: Ms Salazar is a 43-year-old woman with history of bipolar disorder, who came to ER after take about 44 tabs of the Zoloft. The patient was complaining of abdominal pain, nausea and headache. She is very anxious. She states that she took the pills in order to sleep because she was very depressed. At my encounter she denied any suicidal ideation. During her stay in ER her blood sugar was on the lower side, 40 argenis. She received D50 a couple of times a ready , despite that, her blood sugar is not improving on remain in the same range. Allergies No Known Drug Allergies Allergy (Verified 02/26/15 17:58) Unknown No Known Allergies Allergy (Uncoded 02/22/16 12:32) Unknown Home medications list reviewed: Yes Home Medications: Venlafaxine HCl [Effexor XR] 150 mg PO DAILY 02/26/15 ALPRAZolam [Xanax*] 1 mg PO TID 03/22/16 Trazodone [Desyrel*] 150 mg PO BEDTIME 03/22/16 Ciprofloxacin HCl [Cipro 500 MG Tablet] 500 mg PO BID #10 tab 03/24/16 Ferrous Sulfate [Feosol] 325 mg PO DAILY #30 tab 03/24/16 Hydrocodone/Acetaminophen [[place] 5-325 Tablet] 1 each PO Q4HP PRN #30 tablet Ondansetron HCl [Zofran] 4 mg PO QID PRN #20 tablet 03/24/16 - Past Medical/Surgical History Diabetic: No -: Bipola, anxiety, anemia -: PVD -: Tubal Ligation, Hernia Repair, -: fallopian tube removed -: Appendectomy - Family History Mother -: Other (see notes) Notes: bipolar - Social History Alcohol use: Yes CD- Drugs: Yes Caffeine use: Yes Place of Residence: Home Review of Systems 10-point ROS is otherwise unremarkable Physical Examination - Physical Exam General: Alert, Moderate distress (Due to abdominal pain and nausea) HEENT: Atraumatic, PERRLA, Mucous membr. moist/pink, EOMI, Sclerae nonicteric Neck: Supple, 2+ carotid pulse no bruit, No LAD, Without JVD or thyroid abnormality Respiratory: Clear to auscultation bilaterally, Normal air movement Cardiovascular: Regular rate/rhythm, Normal S1 S2 Gastrointestinal: Normal bowel sounds, No tenderness Musculoskeletal: No tenderness Integumentary: No rashes Neurological: Normal speech, Normal strength at 5/5 x4 extr, Normal tone, Normal affect Lymphatics: No axilla or inguinal lymphadenopathy - Studies Laboratory Data (last 24 hrs) 09/12/18 17:00: PT 10.8, INR 0.92, APTT 24.9 09/12/18 17:00: WBC 8.6, Hgb 11.3 L, Hct 33.2 L, Plt Count 426 H 09/12/18 17:00: Sodium 142, Potassium 3.7, BUN 15, Creatinine 0.70, Glucose 48 L *, Total Bilirubin 0.2, AST 22, ALT 21, Alkaline Phosphatase 55 Assessment and Plan - Problems (Diagnosis) (1) Intentional SSRI (selective serotonin reuptake inhibitor) overdose Current Visit: Yes Status: Acute Qualifiers: Encounter type: initial encounter Qualified Code(s): T43.222A - Poisoning by selective serotonin reuptake inhibitors, intentional self-harm, initial encounter (2) Hyperglycemia Current Visit: Yes Status: Acute (3) Bipolar disease, chronic Onset Date: 03/23/16 Current Visit: No Status: Acute - Plan The patient will be admitted to ICU for close monitoring with suicidal percussion. Will call mental Health for evaluation and jail until the patient is clinically stable to be transferred to a psychiatric facility. Will order symptomatic medication for nausea abdominal pain, start D10 infusion with close blood sugar monitor. - Advance Directives Does patient have a Living Will: No Does patient have a Durable POA for Healthcare: No - Code Status/Comfort Care Code Status Assessed: Yes Code Status: Full Code
[2018-09-12] MEDS ORDERED: ACETAMINOPHEN 500 MG TAB ONE (23:07)
[2018-09-12] MEDS ORDERED: SODIUM CHLORIDE 0.9% 10ML INJ IV PRN (23:28)
[2018-09-12] MEDS ORDERED: ACETAMINOPHEN 500 MG TAB PO PRN (23:28)
[2018-09-12] MEDS ORDERED: ONDANSETRON 4 MG/2 ML VIAL IV PRN (23:28)
[2018-09-12 23:49] VITALS: O2SAT 98
[2018-09-13] MEDS: PANTOPRAZOLE 40 MG INJ IVP SCH ×2 (00:02→07:35)
[2018-09-13] MEDS: TRAMADOL HCL 50 MG TAB PO PRN ×3 (00:02→13:40)
[2018-09-13] MEDS: DEXTROSE 10%-WATER 500 ML IV SCH ×2 (00:03→05:16)
[2018-09-13 05:16] LABS: Absolute Lymphocytes (CBC) 2.3 K/uL (0.7-4.9); Absolute Monocytes 0.6 K/uL (0.1-1.3); Absolute Neutrophil 4.2 K/uL (1.8-8.0); Basophils % 0.7 % (0-1.3); Eosinophils % 2.6 % (0-4.4); Hematocrit 28.8 % (36.0-45.0); Lymphocytes % 31.6 % (15.3-44.8); MCH 25.7 pg (27.0-35.0); MCV 78.6 fL (80-100); MPV 7.3 fL (7.6-11.3); Monocytes % 7.6 % (3.3-12.3); RBC Red Blood Cell Count 3.67 M/uL (3.86-4.86)
[2018-09-13 05:29] LABS: BUN Blood Urea Nitrogen 11 mg/dL (7-18); Bicarbonate 25 mmol/L (21-32); Glucose Level 105 mg/dL (74-106); Potassium 3.3 mmol/L (3.5-5.1); Sodium Level 140 mmol/L (136-145)
[2018-09-13] MEDS ORDERED: POTASSIUM CL SA 10 MEQ TAB PO ONE (06:10)
--- NOTE | 2018-09-13 07:55 | RAD REPORT ---
EXAM DESCRIPTION: RAD - Abdomen 1 View (KUB) - 09/12/2018 11:54 pm CLINICAL HISTORY: Abdomen pain. FINDINGS: Air is present throughout colon which is upper limits normal caliber. Air is also present within nondilated small bowel. This is a nonspecific bowel gas pattern. No abnormal calcification is seen
--- NOTE | 2018-09-13 08:26 | EKG ---
Test Date: 2018-09-12 Test Time: 16:42:03 Label Machine Operator: GOPI MEASUREMENT RESULTS: Intervals: Rate: 71 DE: 170 QRSD: 92 QT: 410 QTc: 445 [place]: P: 60 DE: 170 QRS: 85 T: 65 INTERPRETIVE STATEMENTS: Normal sinus rhythm Nonspecific T wave abnormality Abnormal ECG Compared to ECG 07/18/2018 10:34:57 T-wave abnormality now present Electronically Signed On 09-13-18 08:26:16 CDT by Tay Bronw
[2018-09-13] MEDS ORDERED: HOME MED 1 EA UNK (Divalproex Sodium [Depakote] 125 MG) PO SCH (09:00)
[2018-09-13] MEDS ORDERED: D5W 1,000 ML IV SCH (09:00)
[2018-09-13] MEDS: ENOXAPARIN 40 MG/0.4 ML SQ SCH (09:02)
[2018-09-13] MEDS: DIVALPROEX NA 125 MG CAP PO SCH ×2 (09:03→19:54)
[2018-09-13] MEDS: ALPRAZOLAM 1 MG TABLET PO SCH ×3 (09:03→19:56)
--- NOTE | 2018-09-13 12:28 | RAD REPORT ---
EXAM DESCRIPTION: CT - Abdomen Pelvis Wo Contrast - 09/13/2018 12:07 pm CLINICAL HISTORY: Abdominal pain with vomiting for several months COMPARISON: None TECHNIQUE: Computed axial tomography of the abdomen and pelvis was obtained. IV was not requested. O ral contrast was given. All CT scans are performed using dose optimization technique as appropriate and may include automated exposure control or mA/KV adjustment according to patient size. FINDINGS: The evaluation of solid organs and vessels is limited secondary to the lack of contrast a dministration. The liver, spleen, pancreas, adrenals and kidneys appear grossly normal. 3 centimeter left ovarian dermoid is unchanged. There is no evidence of diverticulitis. The gallbladder has been removed IMPRESSION: No acute abnormality is displayed.
--- NOTE | 2018-09-13 12:31 | PN ---
Date of Progress Note: 09/13/2018 History: The patient is seen and examined. Chart reviewed and case discussed with RN. The patient was admitted for overdose of Zoloft. Complains of abdominal pain. Very anxious. Seems to be in wit hdrawal from her benzodiazepines. Review of Systems: Negative except as above. Medications: List reviewed. Physical Examination: Vital Signs: Temperature 97, heart rate 69, blood pressure 103/68, respirations 23, O2 100% on room air. General: Awake, alert, oriented x3. Some moderate distress. Ill-appearing female. CV: S1, S2. No murmurs. Peripheral pulses present. Regular rate and rhythm. Respiratory: Moving air well bilaterally. No wheezing or stridor. No use of accessory muscles. Gastrointestinal: Abdomen is soft. Tenderness to palpation in the right lower quadrant. No rebound or guarding. No rigidity. Bowel sounds are positive. No distention. Extremities: No clubbing, cyanosis, or edema. No calf tenderness. Neuro: Cranial nerves 2-12 intact grossly. No focal neurological deficit. Speech is normal. Stren gth is intact. Bilateral upper and lower extremities 5/5. Psych: Mood is euphoric. Affect is congruent with mood. Insight and judgment are poor. Laboratory Data: Sodium 140, potassium 3.3, chloride 108, CO2 25, BUN 11, creatinine 0.7, calcium 7. 6. WBC 7.4, H and H 9.4, 28.8, platelets 309, neutrophils 57%. KUB shows air present throughout the colon, which is upper limits of normal caliber. Air also present within nondilated small bowel. No nspecific bowel gas pattern. No abnormal calcification is seen. Assessment And Plan: A 43-year-old female with: 1.Intentional overdose with SSRI, initial encounter with intentional self-harm. Poison Control has been contacted. We will continue to monitor on telemetry for QT prolongation and recheck salicylate level. 2.Bipolar disorder. Resume home medications. 3.Generalized anxiety disorder. Resume Xanax. The patient seems to be withdrawing. 4.Anemia. Likely anemia of iron deficiency. We will monitor hemoglobin and hematocrit. No need fo r transfusion at this time. 5.Peripheral vascular disease. 6.Once medically stable, the patient will need [facility] evaluation and transfer to psych facility. 7.Right lower quadrant abdominal pain. We will obtain CT scan of the abdomen without contrast. May be related to gastroenteritis. 8.Hypokalemia. Replace and monitor. Plan: Continue monitor in ICU setting. DOUGLAS Voice ID: [id number] Report ID: [id number]
[2018-09-13] MEDS ORDERED: LOPERAMIDE HCL 2 MG CAPSULE PO PRN (12:40)
[2018-09-13] MEDS ORDERED: LORazepam 2 MG/ML VIAL IV ONE (13:00)
[2018-09-13] MEDS: RANITIDINE 150 MG TABLET PO SCH ×2 (13:08→19:56)
[2018-09-13] MEDS: HYDROCODONE/APAP 7.5/325 MG TAB PO PRN (18:40)
[2018-09-13] MEDS: ZOLPIDEM TARTRATE 10 MG TABLET PO SCH (19:54)
[2018-09-13] MEDS: AMITRIPTYLINE 10 MG TAB PO SCH (19:55)
[2018-09-14] MEDS: HYDROCODONE/APAP 7.5/325 MG TAB PO PRN ×3 (02:59→15:11)
[2018-09-14 05:32] VITALS: BMI 27.8
[2018-09-14 06:02] LABS: BUN Blood Urea Nitrogen 10 mg/dL (7-18); Bicarbonate 25 mmol/L (21-32); Glucose Level 91 mg/dL (74-106); Potassium 3.7 mmol/L (3.5-5.1); Sodium Level 138 mmol/L (136-145)
[2018-09-14] MEDS: RANITIDINE 150 MG TABLET PO SCH ×2 (08:25→22:10)
[2018-09-14] MEDS: ALPRAZOLAM 1 MG TABLET PO SCH ×3 (08:25→22:09)
[2018-09-14] MEDS: ENOXAPARIN 40 MG/0.4 ML SQ SCH (08:25)
[2018-09-14] MEDS ORDERED: POTASSIUM CL SA 10 MEQ TAB PO ONE (09:00)
[2018-09-14] MEDS: DIVALPROEX NA 125 MG CAP PO SCH ×2 (09:43→22:10)
[2018-09-14 10:25] LABS: Urine Appearance CLEAR; Urine Bilirubin NEGATIVE (NEG); Urine Blood 3+ (NEG); Urine Color YELLOW; Urine Glucose NEGATIVE (NEG); Urine Protein NEGATIVE (NEG); Urine Urobilinogen 0.2 mg/dL (0.2-1.0); Urine pH 7.5 (5.0-7.0)
[2018-09-14] MEDS ORDERED: KETOROLAC 30 MG/ML INJ IV ONE ×2 (10:27→17:00)
[2018-09-14 10:34] LABS: Urine Microscopic Reflex ORDER UMIC
[2018-09-14] MEDS: VENLAFAXINE HCL XR 75 MG CAP PO SCH (10:45)
[2018-09-14 11:31] LABS: Urine Bacteria <20 /HPF (<20); Urine Culture Reflex Order NOT NEEDED; Urine RBC 20-50 /HPF (NONE SEEN)
--- NOTE | 2018-09-14 16:48 | P.PN ---
Date of Service: 09/14/18 Patient threatening to leave AMA. I explained to her that her CT scan of the abdomen is negative other than dermoid which is chronic. We are still awaiting stool studies to rule out Cdiff. Patient asking for medication for pain - toradol given. Wants something to help her sleep - recent overdose on zoloft for same reason. I counseled her and she agrees to stay. Patient very emotionally labile. When no one is in the room, pt appears comfortable on the phone however once nurse or myself enter the room she begins to cry and moan asking for pain medications. She is exhibiting pain seeking behavior. Patient does have bipolar disorder and substance abuse. ADDENDUM: cdiff positive. Add Vancomycin PO, isolation precautions.
[2018-09-14] MEDS: VANCOMYCIN ORAL SOLN 250 MG/5 ML OSYR PO SCH ×2 (17:39→23:53)
[2018-09-14] MEDS: MORPHINE 2 MG/ML SYR IV PRN ×2 (18:32→23:52)
--- NOTE | 2018-09-14 21:26 | PN ---
Date of Progress Note: 09/14/2018 Subjective: The patient seen and examined. Chart reviewed and case discussed with RN. The patient did well overnight. No acute events. The patient is not complaining of any pain at this time, however, later in the afternoon, nurse called as the patient evaluated due to pain in her abdomen. I explained to her the test results from the CT scan, re-examined, and IV pain medications were given. Review of Systems: Negative except as above. Medications: List reviewed. Physical Examination: Vital Signs: Temperature 97.1, heart rate 71, blood pressure 114/76, respirations 18, O2 100% on room air. General: Awake, alert, oriented x3, in no acute distress. CV: S1, S2. No murmurs. Peripheral pulses present. Respiratory: Moving air well bilaterally. No wheezing. Gastrointestinal: Abdomen is soft, nontender, nondistended. No guarding or rigidity. Bowel sounds positive. Extremities: No clubbing, cyanosis, or edema. Neuro: Nonfocal. Psych: Mood is anxious. Affect is congruent with mood. Insight and judgment are poor. Laboratory Data: Sodium 138, potassium 3.7, chloride 106, CO2 25, BUN 10, creatinine 0.7, glucose 91, calcium 7.8. WBC pending. C. diff assay is pending. Urine culture is also pending. CT scan of the abdomen and pelvis shows no acute abnormality, 3-cm left ovarian dermoid is unchanged from previous. Assessment And Plan: A 43-year-old female with intentional overdose with SSRI, initial encounter with intentional self-harm. Continue to monitor on telemetry for heart rate. Salicylate level was recheck and was 3.7, normal range. 1. Bipolar disorder. Resume home medications. 2. Generalized anxiety disorder. We will resume Xanax taper. The patient is still having some withdrawal symptoms with diarrhea and heart rate. 3. Microcytic hypochromic anemia, likely anemia of iron deficiency. Monitor H and H. No need for transfusion at this time. We will monitor. 4. Peripheral vascular disease. 5. Right lower quadrant abdominal pain. CT scan of abdomen is negative, likely related to cramping pain from diarrhea. 6. Diarrhea, rule out Clostridium difficile, likely related to withdrawal effects of Ativan. 7. Hypokalemia. We will replace and monitor. Plan: 1. Step down from ICU. The patient was evaluated by [facility] at [facility]. They do not feel that the patient is actively suicidal. The patient took cocaine and was trying to take Zoloft to help her sleep. The patient will need outpatient psychiatric followup, she got fired from her primary care physician, Dr. Joya, and does not have any further benzodiazepine at home, therefore, we will taper down benzodiazepine and discharge once no longer having active withdrawal. Decrease the Xanax to daily in a.m. and then likely discharge in next 24 to 48 hours. Does not need any suicide precautions. 2. Polysubstance abuse. SA/MODL Voice ID: [id number] Report ID: [id number]
[2018-09-14] MEDS: ZOLPIDEM TARTRATE 10 MG TABLET PO SCH (22:04)
[2018-09-14] MEDS: AMITRIPTYLINE 10 MG TAB PO SCH (22:10)
[2018-09-15] MEDS: VANCOMYCIN ORAL SOLN 250 MG/5 ML OSYR PO SCH (05:21)
[2018-09-15] MEDS: MORPHINE 2 MG/ML SYR IV PRN ×2 (05:22→09:35)
[2018-09-15 05:34] LABS: BUN Blood Urea Nitrogen 8 mg/dL (7-18); Bicarbonate 26 mmol/L (21-32); Glucose Level 105 mg/dL (74-106); Potassium 3.8 mmol/L (3.5-5.1); Sodium Level 139 mmol/L (136-145)
[2018-09-15] MEDS ORDERED: POTASSIUM CL SA 10 MEQ TAB PO ONE (05:39)
[2018-09-15] MEDS: RANITIDINE 150 MG TABLET PO SCH (09:27)
[2018-09-15] MEDS: VENLAFAXINE HCL XR 75 MG CAP PO SCH (09:28)
[2018-09-15] MEDS: ALPRAZOLAM 1 MG TABLET PO SCH (09:28)
[2018-09-15] MEDS: DIVALPROEX NA 125 MG CAP PO SCH (09:28)
[2018-09-15] MEDS: ENOXAPARIN 40 MG/0.4 ML SQ SCH (09:28)
[2018-09-15] MEDS ORDERED: ONDANSETRON 4 MG (ODT) TAB PO ONE (10:34)
[2018-09-15 12:25] VITALS: BP 117/62; TEMP 97.1
--- NOTE | 2018-09-15 18:31 | P.DS ---
Admission Date: 09/13/18 Discharge Date: 09/15/18 Disposition: ROUTINE DISCHARGE Discharge Condition: GOOD Reason for Admission: Drugs overdose Brief History of Present Illness: Ms Salazar is a 43-year-old woman with history of bipolar disorder, who came to ER after take about 44 tabs of the Zoloft. The patient was complaining of abdominal pain, nausea and headache. She is very anxious. She states that she took the pills in order to sleep because she was very depressed. At my encounter she denied any suicidal ideation. During her stay in ER her blood sugar was on the lower side, 40 argenis. She received D50 a couple of times a ready , despite that, her blood sugar is not improving on remain in the same range. Hospital Course: Patient was admitted to the ICU for close monitoring for suicidal ideations. An H and R was called for evaluation, the he did not feel that patient was actively suicidal. For her polysubstance abuse, patient reported to take synthetic marijuana. Her drug testing was positive for cocaine in the hospital. She was also fired from her outpatient primary care physician, Dr. falcon. As per patient, this was because he stopped giving her any more xanax. She states that she also took more than 20-30 Zoloft to help her sleep as the cocaine was making her anxious. She was stabilized in the ICU, was transferred to the floor. Her Xanax was continued b.i.d.. At the time of discharge, she was discharged on the Xanax taper End ( once daily in the morning for the next 5 days, then once every other day). Rx was sent to the pharmacy. For her bipolar disorder, her home medications were resumed. She will need outpatient psychiatric followup but patient states she has a psychiatric doctor outside. Encouraged to follow up outpatient. For her diarrhea, she was positive for Clostridium difficile. She was started on oral vancomycin and was discharged on oral vancomycin pills for a total of 10 day course. Rx was sent to pharmacy For her right lower quadrant abdominal pain, workup including CT scan of the abdomen was negative. This had improved and was likely secondary to the cramping pain and diarrhea. Throughout the hospitalization, patient did show pain medication seeking behavior as she wanted pain medications plan Xanax 0. She refused CE even though her blood sugars were down in the 40s and stated to the nurse was forcing her to eat and was very upset about that. She was explained the reason for the food as her blood sugars were in the 40s that she did not understand. She did get some apple juice and and some soda Excedrin and at the time of discharge her blood sugars were 80+. Vital Signs/Physical Exam: Temp Pulse Resp BP Pulse Ox 97.1 F 77 16 117/62 100 09/15/18 12:00 09/15/18 12:00 09/15/18 12:00 09/15/18 12:00 09/15/18 12:00 General: Alert, In no apparent distress HEENT: Atraumatic, PERRLA, EOMI Neck: Supple, JVD not distended Respiratory: Clear to auscultation bilaterally, Normal air movement Cardiovascular: Regular rate/rhythm, Normal S1 S2 Gastrointestinal: Normal bowel sounds, No tenderness Musculoskeletal: No tenderness Integumentary: No rashes Neurological: Normal speech, Normal tone, Normal affect Lymphatics: No axilla or inguinal lymphadenopathy Laboratory Data at Discharge: WBC 7.4 K/uL (4.3-10.9) 09/13/18 04:44 Hgb 9.4 g/dL (12.0-15.0) L 09/13/18 04:44 Hct 28.8 % (36.0-45.0) L 09/13/18 04:44 Plt Count 309 K/uL (152-406) D 09/13/18 04:44 PT 10.8 SECONDS (9.5-12.5) 09/12/18 17:00 INR 0.92 09/12/18 17:00 APTT 24.9 SECONDS (24.3-36.9) 09/12/18 17:00 Sodium 139 mmol/L (136-145) 09/15/18 04:30 Potassium 3.8 mmol/L (3.5-5.1) 09/15/18 04:30 BUN 8 mg/dL (7-18) 09/15/18 04:30 Creatinine 0.70 mg/dL (0.55-1.3) 09/15/18 04:30 Glucose 105 mg/dL (74-106) 09/15/18 04:30 Total Bilirubin 0.2 mg/dL (0.2-1.0) 09/12/18 17:00 AST 22 U/L (15-37) 09/12/18 17:00 ALT 21 U/L (12-78) 09/12/18 17:00 Alkaline Phosphatase 55 U/L (45-117) 09/12/18 17:00 Home Medications: Venlafaxine HCl [Effexor XR] 150 mg PO DAILY 02/26/15 Amitriptyline [Elavil*] 10 mg PO BEDTIME 09/13/18 Divalproex Sodium [Depakote] 125 mg PO BID 09/13/18 Sertraline [Zoloft*] 100 mg PO BID 09/13/18 Zolpidem Tartrate 10 mg PO BEDTIME 09/13/18 ALPRAZolam [Xanax*] 2 mg PO DIRECTED #8 tab 09/15/18 Vancomycin HCl 125 mg PO Q6HR 9 Days #36 capsule 09/15/18 New Medications: Vancomycin HCl 125 mg PO Q6HR 9 Days #36 capsule ALPRAZolam [Xanax*] 2 mg PO DIRECTED #8 tab Patient Discharge Instructions: Please follow up with a Primary care physician in 1 week. List of new PCP provided to you. Diet: Regular Activity: Ad serafin Time spent managing pt's care (in minutes): 55
== END 2018-09-15 12:00 | disposition home or self-care (01) | DRG 918 ==
LOC: ER 16:38 → ERHOLD 20:18 → 3RD-ICU 22:49 → OBSVTOIN 09-13 14:30 → 2ND 09-14 11:16
PROVIDERS: ADMIT Internal Medicine; ATTEND Family Medicine
DX: T43.222A Poisoning by selective serotonin reuptake inhibitors, intentional self-harm, initial encounter (principal); F31.89 Other bipolar disorder; A04.72 Enterocolitis due to Clostridium difficile, not specified as recurrent; Y92.019 Unspecified place in single-family (private) house as the place of occurrence of the external cause; F41.1 Generalized anxiety disorder; D50.9 Iron deficiency anemia, unspecified; I73.9 Peripheral vascular disease, unspecified; E87.6 Hypokalemia; F14.10 Cocaine abuse, uncomplicated; Z76.5 Malingerer [conscious simulation]
CPT/HCPCS: 36415; 74018; 74176; 80048; 80076; 80307; 80320; 80329; 81003; 81015; 81025; 82962; 84132; 85025; 85610; 85730; 87086; 87088; 87493; 93005; 96361; 96374; 96375; 99285; C9113; J1650; J2270; J2405; J7030

== ENCOUNTER 2018-09-20 11:17 | Emergency (ER) | payer OTHER ==
[2018-09-20] MEDS ORDERED: NA CHLORIDE 0.9% 1,000 ML ONE (13:27)
[2018-09-20 14:30] LABS: Absolute Lymphocytes (CBC) 1.8 K/uL (0.7-4.9); Absolute Monocytes 0.9 K/uL (0.1-1.3); Absolute Neutrophil 6.1 K/uL (1.8-8.0); Basophils % 0.5 % (0-1.3); Eosinophils % 0.6 % (0-4.4); Hematocrit 35.6 % (36.0-45.0); Lymphocytes % 20.2 % (15.3-44.8); MCH 24.8 pg (27.0-35.0); MPV 7.3 fL (7.6-11.3); Monocytes % 10.4 % (3.3-12.3); RBC Red Blood Cell Count 4.63 M/uL (3.86-4.86)
[2018-09-20 14:41] LABS: BUN Blood Urea Nitrogen 13 mg/dL (7-18); Bicarbonate 25 mmol/L (21-32); Glucose Level 98 mg/dL (74-106); Magnesium 2.2 mg/dL (1.8-2.4); Potassium 3.1 mmol/L (3.5-5.1); Sodium Level 140 mmol/L (136-145)
--- NOTE | 2018-09-20 14:47 | ER ---
Nurse's Notes [facility] Name: Jennifer Salazar Age: 43 yrs Sex: Female : 1975 Arrival Date: 09/20/2018 Time: 11:20 Bed 15 Private MD: Diagnosis: Hypokalemia Presentation: 09/20 11:55 Presenting complaint: Patient states: "I just feel so weak and I feel dehydrated, I am aa5 so shaky". Pt states "I was released with c-diff about 3 days ago and I am still taking Vancomycin for it". Pt states "I haven't had diarrhea today, yesterday was the last time I did". Transition of care: patient was not received from another setting of care. Onset of symptoms was September 2018. Risk Assessment: Do you want to hurt yourself or someone else? Patient reports no desire to harm self or others. Initial Sepsis Screen: Does the patient meet any 2 criteria? No. Patient's initial sepsis screen is negative. Does the patient have a suspected source of infection? No. Patient's initial sepsis screen is negative. Care prior to arrival: None. 11:55 Method Of Arrival: Ambulatory aa5 11:55 Acuity: BECKY 3 aa5 Triage Assessment: 15:41 General: Appears in no apparent distress. Behavior is calm, cooperative. 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 - Social history:: Smoking status: Patient uses tobacco products, smokes one pack cigarettes per day. - Ebola Screening: : No symptoms or risks identified at this time. Screenin:39 Abuse screen: Denies threats or abuse. Denies injuries from another. Nutritional iw screening: No deficits noted. Tuberculosis screening: No symptoms or risk factors identified. Fall Risk None identified. Assessment: 13:24 Reassessment: Entered room with IV supplies and stated to patient that I was there to aj start and IV and draw some blood and would give her some IV fluids. Arranged supplies on table and sat on stool next to patient bedside. Asked patient if there was any reason she could not have an IV on the right side, patient answered no. Asked patient if she had recently had an IV, patient rolled eyes and stated "yeah when I was in the hospital 3 or 4 days ago. I had a bunch of them." Asked patient what that admission was for, patient again rolled eyes and stated, "don't you listen? Weren't you in here when I explained I was here for C-diff?" I replied okay, removed tourniquet from patient's right arm and exited room with IV supplies. 15:39 Reassessment: Patient appears in no apparent distress at this time. Patient and/or iw family updated on plan of care and expected duration. Pain level reassessed. Patient is alert, oriented x 3, equal unlabored respirations, skin warm/dry/pink. Pain: Denies pain. GI: Bowel sounds present X 4 quads. Abd is soft and non tender X 4 quads. Vital Signs: 11:57 BP 128 / 75; Pulse 82; Resp 18 S; Temp 97.7(TE); Pulse Ox 100% on R/A; Weight 77.11 kg aa5 (R); Height 5 ft. 6 in. (167.64 cm) (R); Pain 8/10; 15:40 BP 126 / 78; Pulse 86; Resp 16; Pulse Ox 100% on R/A; Pain 4/10; iw 11:57 Body Mass Index 27.44 (77.11 kg, 167.64 cm) aa5 ED Course: 11:20 Patient arrived in ED. rg4 11:55 Arm band placed on. aa5 11:56 Triage completed. aa5 12:51 Pipe Monzon MD is Attending Physician. gs 12:54 Deirdre Denis, ALEKSEY is Primary Nurse. aj 13:12 EKG done, by ED staff, reviewed by Pipe Monzon MD. cb2 14:10 Initial lab(s) drawn, by laborer stores. aj 15:40 Patient has correct armband on for positive identification. iw 15:40 No provider procedures requiring assistance completed. Patient did not have IV access iw during this emergency room visit. Administered Medications: 15:39 Not Given (Patient Refused): NS 0.9% 1000 ml IV at 1 bolus Per protocol; 1000 mL bolus iw 15:39 Drug: Potassium Effervescent Tablet 50 mEq Route: PO; iw 15:39 Follow up: Response: No adverse reaction iw Outcome: 14:47 Discharge ordered by . gs 15:40 Discharged to home ambulatory, with friend. iw 15:40 Condition: good 15:40 Discharge instructions given to patient, friend, Instructed on discharge instructions, follow up and referral plans. medication usage, Demonstrated understanding of instructions, follow-up care, medications, Prescriptions given X 1. 15:41 Patient left the ED. iw Signatures: Deirdre Denis RN RN aj Williams, Irene, RN RN iw Calderon, Audri, RN RN mariah5 Guerline Johnson4 Roc Ivy Gregory, MD MD
--- NOTE | 2018-09-20 14:48 | EDPHYS ---
Physician Documentation [facility] Name: Jennifer Salazar Age: 43 yrs Sex: Female : 1975 Arrival Date: 09/20/2018 Time: 11:20 Bed 15 Private MD: ED Physician Pipe Monzon HPI: 09/20 14:43 This 43 yrs old Female presents to ER via Ambulatory with complaints of gs General Weakness. 14:43 The patient presents to the emergency department with weakness of the entire body, gs generalized weakness. Onset: The symptoms/episode began/occurred yesterday. Context: was in hospital feels weak, dehydrated. Associated signs and symptoms: Pertinent negatives: altered mental status, fever. Severity of symptoms: At their worst the symptoms were moderate in the emergency department the symptoms are unchanged. Current symptoms: Currently, the patient is not experiencing any symptoms. The patient has experienced similar episodes in the past, a few times. The patient has been recently been admitted at [facility], was discharged last week. 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 - Social history:: Smoking status: Patient uses tobacco products, smokes one pack cigarettes per day. - Ebola Screening: : No symptoms or risks identified at this time. ROS: 14:43 All other systems are negative. gs Exam: 14:43 Head/Face: Normocephalic, atraumatic. Eyes: Pupils equal round and reactive to light, gs extra-ocular motions intact. Lids and lashes normal. Conjunctiva and sclera are non-icteric and not injected. Cornea within normal limits. Periorbital areas with no swelling, redness, or edema. ENT: Nares patent. No nasal discharge, no septal abnormalities noted. Tympanic membranes are normal and external auditory canals are clear. Oropharynx with no redness, swelling, or masses, exudates, or evidence of obstruction, uvula midline. Mucous membranes moist. Neck: Trachea midline, no thyromegaly or masses palpated, and no cervical lymphadenopathy. Supple, full range of motion without nuchal rigidity, or vertebral point tenderness. No Meningismus. Chest/axilla: Normal chest wall appearance and motion. Nontender with no deformity. No lesions are appreciated. Cardiovascular: Regular rate and rhythm with a normal S1 and S2. No gallops, murmurs, or rubs. Normal PMI, no JVD. No pulse deficits. Respiratory: Lungs have equal breath sounds bilaterally, clear to auscultation and percussion. No rales, rhonchi or wheezes noted. No increased work of breathing, no retractions or nasal flaring. Abdomen/GI: Soft, non-tender, with normal bowel sounds. No distension or tympany. No guarding or rebound. No evidence of tenderness throughout. Back: No spinal tenderness. No costovertebral tenderness. Full range of motion. Skin: Warm, dry with normal turgor. Normal color with no rashes, no lesions, and no evidence of cellulitis. MS/ Extremity: Pulses equal, no cyanosis. Neurovascular intact. Full, normal range of motion. Neuro: Awake and alert, GCS 15, oriented to person, place, time, and situation. Cranial nerves II-XII grossly intact. Motor strength 5/5 in all extremities. Sensory grossly intact. Cerebellar exam normal. Normal gait. 14:43 Constitutional: The patient appears alert, awake. 14:43 ECG was reviewed by the Attending Physician. Vital Signs: 11:57 BP 128 / 75; Pulse 82; Resp 18 S; Temp 97.7(TE); Pulse Ox 100% on R/A; Weight 77.11 kg aa5 (R); Height 5 ft. 6 in. (167.64 cm) (R); Pain 8/10; 15:40 BP 126 / 78; Pulse 86; Resp 16; Pulse Ox 100% on R/A; Pain 4/10; iw 11:57 Body Mass Index 27.44 (77.11 kg, 167.64 cm) aa5 MDM: 13:10 Patient medically screened. 14:43 Data reviewed: vital signs, nurses notes, old medical records. Response to treatment: gs the patient's symptoms have markedly improved after treatment, patient is well hydrated. and as a result, I will discharge patient. ED course: ddx- dehydration, electrolyte abnormality, weakness nos. 09/20 12:53 Order name: CBC with Diff; Complete Time: 14:42 09/20 12:53 Order name: Basic Metabolic Panel; Complete Time: 14:42 09/20 12:53 Order name: Magnesium; Complete Time: 14:42 09/20 12:53 Order name: EKG; Complete Time: 12:54 09/20 12:53 Order name: EKG - Nurse/Tech; Complete Time: 13:13 gs EC:43 Rate is 75 beats/min. Rhythm is regular. MD interval is normal. QRS interval is normal. gs QT interval is normal. T waves are Normal. No ST changes noted. Clinical impression: Normal ECG. Interpreted by me. Administered Medications: 15:39 Not Given (Patient Refused): NS 0.9% 1000 ml IV at 1 bolus Per protocol; 1000 mL bolus iw 15:39 Drug: Potassium Effervescent Tablet 50 mEq Route: PO; iw 15:39 Follow up: Response: No adverse reaction iw Disposition: 09/20/18 14:47 Discharged to Home. Impression: Hypokalemia. - Condition is Stable. - Discharge Instructions: Hypokalemia. - Prescriptions for Potassium Chloride 20 meq Oral Packet - take 1 packet by ORAL route once daily for 7 days 1 packet in 6 (six) ounces of water or juice; Take after meal; 7 packet. - Medication Reconciliation Form, Thank You Letter, Antibiotic Education, Prescription Opioid Use form. - Follow up: Private Physician; When: 2 - 3 days; Reason: Re-evaluation by your physician. Signatures: Dispatcher [employer] Marian Lantigua RN RN iw Calderon, Audri, RN RN aa5 Pipe Monzon MD MD Corrections: (The following items were deleted from the chart) 15:41 14:47 09/20/2018 14:47 Discharged to Home. Impression: Hypokalemia. Condition is iw Stable. Forms are Medication Reconciliation Form, Thank You Letter, Antibiotic Education, Prescription Opioid Use. Follow up: Private Physician; When: 2 - 3 days; Reason: Re-evaluation by your physician. gs
[2018-09-20] MEDS ORDERED: POTASSIUM 25 MEQ EFFERV TAB ONE (15:31)
[2018-09-20 16:16] VITALS: TEMP 97.7; O2SAT 100
[2018-09-20 16:17] VITALS: BP 126/78
--- NOTE | 2018-09-22 07:07 | EKG ---
Test Date: 2018-09-20 Test Time: 13:07:51 Pulley Mortiser Operator: JOSE ELIAS MEASUREMENT RESULTS: Intervals: Rate: 75 NC: 140 QRSD: 92 QT: 398 QTc: 444 Meno: P: 67 NC: 140 QRS: 78 T: 23 INTERPRETIVE STATEMENTS: Normal sinus rhythm Normal ECG Compared to ECG 09/12/2018 16:42:03 T-wave abnormality no longer present Electronically Signed On 09-22-18 07:04:01 MECHANICAL DESIGN TECHNICIAN by Jose Manuel
== END 2018-09-20 15:41 | disposition home or self-care (01) ==
LOC: ER 11:17
DX: E87.6 Hypokalemia (principal); F17.210 Nicotine dependence, cigarettes, uncomplicated
CPT/HCPCS: 36415; 80048; 82962; 83735; 85025; 93005; 99284; J7030

== ENCOUNTER 2018-12-23 15:26 | Emergency (ER) | payer OTHER ==
[2018-12-23] MEDS ORDERED: TETANUS & DIPHTHERIA TOX,ADULT 0.5 ML VIAL ONE (15:57)
--- NOTE | 2018-12-23 17:41 | RAD REPORT ---
EXAM DESCRIPTION: RAD - Chest Single View - 12/23/2018 5:05 pm CLINICAL HISTORY: Fall, chest pain, left-sided rib pain COMPARISON: October 2011 TECHNIQUE: AP portable chest image was obtained 1645 hours . FINDINGS: Lungs are clear. Heart and vasculature are normal. No measurable pleural effusion and no p neumothorax. No acute bony abnormality seen. No acute aortic findings suspected. IMPRESSION: No acute cardiopulmonary process.
--- NOTE | 2018-12-23 17:42 | RAD REPORT ---
EXAM DESCRIPTION: RAD - Ribs Left - 12/23/2018 5:08 pm CLINICAL HISTORY: Fall, left-sided rib pain COMPARISON: None. FINDINGS: No displaced rib fracture is seen and no non-displaced rib fractures suspected. No aggress miguel rib lesion. No underlying pneumothorax, effusion, infiltrate or pulmonary contusion. IMPRESSION: Negative left rib series.
--- NOTE | 2018-12-23 17:43 | RAD REPORT ---
EXAM DESCRIPTION: RAD - Knee Left 3 View - 12/23/2018 5:07 pm CLINICAL HISTORY: Fall, left knee pain COMPARISON: July 2017 FINDINGS: No fracture, dislocation or periosteal reaction.No joint effusion seen. No joint space freddie rowing. No soft tissue abnormality. No change from comparison. IMPRESSION: Negative left knee. Clinical concerns for internal derangement or occult bony injury could be further assessed with MR im aging.
--- NOTE | 2018-12-23 17:43 | RAD REPORT ---
EXAM DESCRIPTION: RAD - Hip Right 2 View - 12/23/2018 5:05 pm CLINICAL HISTORY: Fall, right hip pain COMPARISON: Right September 2015 FINDINGS: AP and frog-leg views of the right hip were obtained. There is no fracture or dislocation . No acute or destructive bony process seen. No identifiable change from comparison. IMPRESSION: Negative right hip examination for acute findings.
--- NOTE | 2018-12-23 17:56 | ER ---
Nurse's Notes [facility] Name: Jennifer Salazar Age: 43 yrs Sex: Female : 1975 Arrival Date: 12/23/2018 Time: 15:29 Bed 12 Private MD: None, None Diagnosis: Other slipping, tripping and stumbling and falls;Other chest pain-left lower lateral rib pain;Pain in left knee;Pain in right hip Presentation: 12/23 15:31 Presenting complaint: Left left torso, left hip and left knee pain after foot slipped hb through stairs on travel trailer 3 days ago. Transition of care: patient was not received from another setting of care. Onset of symptoms was December 20, 2018. Risk Assessment: Do you want to hurt yourself or someone else? Patient reports no desire to harm self or others. Care prior to arrival: None. 15:31 Method Of Arrival: Ambulatory hb 15:31 Acuity: BECKY 4 hb Triage Assessment: 16:00 General: Appears in no apparent distress. 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 - Social history:: Smoking status: Patient/guardian denies using tobacco. - Ebola Screening: : No symptoms or risks identified at this time. Screenin:54 Abuse screen: Denies threats or abuse. Denies injuries from another. Nutritional iw screening: No deficits noted. Tuberculosis screening: No symptoms or risk factors identified. Fall Risk None identified. Assessment: 15:42 Reassessment: Entered room with Bruce Wright to observe assessment. After assessment aj patient stated to Bruce Wright "and she is in here why?." Bruce Wright stated "she's going to be your nurse." Patient then rolled her eyes and sighed. Stated to her visitor "I don't like her." Charge nurse informed of patients comments. 16:00 General: Appears in no apparent distress. comfortable. Pain: Complains of pain in back. iw Neuro: Level of Consciousness is awake, alert, obeys commands, Oriented to person, place, time, situation, Moves all extremities. Cardiovascular: Patient's skin is warm and dry. Respiratory: Respiratory effort is even, unlabored. GI: No signs and/or symptoms were reported involving the gastrointestinal system. Musculoskeletal: Range of motion: intact in all extremities. Vital Signs: 15:33 BP 131 / 87; Pulse 80; Resp 16; Temp 98.4; Pulse Ox 100% on R/A; Pain 8/10; hb ED Course: 15:29 Patient arrived in ED. sb2 15:30 None, None is Private Physician. sb2 15:33 Triage completed. hb 15:33 Arm band placed on right wrist. hb 15:36 [facility]. cp 15:36 Tray Cheng MD is Attending Physician. cp 15:38 Deirdre Denis, RN is Primary Nurse. aj 15:53 Marian Dawson, ALEKSEY is Primary Nurse. iw 17:09 XRAY Ribs LEFT In Process Unspecified. EDMS 17:09 Chest Single View XRAY In Process Unspecified. EDMS 17:09 XRAY Knee LEFT 3 view In Process Unspecified. EDMS 17:09 XRAY Hip RIGHT 2 view In Process Unspecified. EDMS Administered Medications: 15:53 Drug: Tetanus-Diphtheria Toxoid Adult 0.5 ml {Color Maker: [employer]. Exp: iw 06/30/2020. Lot #: [id number]. } Route: IM; Site: right deltoid; 16:20 Follow up: Response: No adverse reaction iw Point of Care Testing: Blood Glucose: 16:13 Blood Glucose: 111 mg/dL; iw Ranges: Outcome: 17:56 Discharge ordered by MD. cp 18:14 Discharged to home ambulatory. iw 18:14 Condition: good 18:14 Discharge instructions given to patient, Instructed on discharge instructions, follow up and referral plans. medication usage, Demonstrated understanding of instructions, follow-up care, medications, Prescriptions given X 1. 18:15 Patient left the ED. eb Signatures: Dispatcher [employer] EDMS Deirdre Denis RN RN aj Williams, Irene, RN ALEKSEY Bruce Wright PA PA cp Baxter, Heather, RN RN Yi Hudson 2 Elizabeth Winchester eb
--- NOTE | 2018-12-23 17:57 | EDPHYS ---
Physician Documentation [facility] Name: Jennifer Salazar Age: 43 yrs Sex: Female : 1975 Arrival Date: 12/23/2018 Time: 15:29 Bed 12 Private MD: None, None ED Physician Tray Cheng HPI: 12/23 15:45 This 43 yrs old Female presents to ER via Ambulatory with complaints of Fall cp Injury, Back Pain, Knee Pain. 15:45 Details of fall: The patient fell from an upright position, while walking. Onset: The cp symptoms/episode began/occurred 3 day(s) ago. Associated injuries: The patient sustained injury to the chest, specifically the left lower chest area, abrasion, tenderness, left knee, ecchymosis. 15:45 Patient reports she slipped through step on trailer 3 days ago. 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 - Social history:: Smoking status: Patient/guardian denies using tobacco. - Ebola Screening: : No symptoms or risks identified at this time. ROS: 15:45 Eyes: Negative for injury, pain, redness, and discharge. cp 15:45 Constitutional: Negative for body aches, chills, fever, poor PO intake. 15:45 ENT: Negative for drainage from ear(s), ear pain, sore throat, difficulty swallowing, difficulty handling secretions. 15:45 Cardiovascular: Positive for chest pain, of the left lower lateral rib area, Negative for edema, palpitations. 15:45 Respiratory: Negative for cough, shortness of breath, wheezing. 15:45 Abdomen/GI: Negative for abdominal pain, nausea, vomiting, and diarrhea. 15:45 MS/extremity: Positive for pain, tenderness, of the right hip and left knee, Negative for decreased range of motion, paresthesias. 15:45 Skin: Positive for abrasion(s), of the left lower lateral rib area, Negative for cellulitis, rash. 15:45 Neuro: Negative for altered mental status, headache, weakness. 15:45 All other systems are negative. Exam: 15:52 Constitutional: The patient appears in no acute distress, alert, awake, cp non-diaphoretic, non-toxic, well developed, well nourished. 15:52 Head/Face: Normocephalic, atraumatic. cp 15:52 Eyes: Periorbital structures: appear normal, Conjunctiva: normal, no exudate, no injection, Lids and lashes: appear normal, bilaterally. 15:52 ENT: External ear(s): are unremarkable, Nose: is normal, Mouth: Lips: moist, Oral mucosa: pink and intact, moist, Posterior pharynx: is normal, airway is patent. 15:52 Neck: C-spine: vertebral tenderness, is not appreciated, crepitus, is not appreciated, ROM/movement: is normal, is supple, without pain, no range of motions limitations, no meningismus, no nuchal rigidity. 15:52 Chest/axilla: Inspection: abrasion, that is mild, of the left lower lateral rib area Palpation: crepitus, is not appreciated, tenderness, that is mild, of the left lower lateral rib area. 15:52 Cardiovascular: Rate: normal, Rhythm: regular, Pulses: Pulses are 2+ in right radial artery and left radial artery. Edema: is not appreciated, JVD: is not appreciated. 15:52 Respiratory: the patient does not display signs of respiratory distress, Respirations: normal, no use of accessory muscles, no retractions, no splinting, no tachypnea, labored breathing, is not present, Breath sounds: are clear throughout, no decreased breath sounds, no stridor, no wheezing. 15:52 Abdomen/GI: Inspection: abdomen appears normal, Bowel sounds: active, all quadrants, Palpation: abdomen is soft and non-tender, in all quadrants, rebound tenderness, is not appreciated, voluntary guarding, is not appreciated, involuntary guarding, is not appreciated. 15:52 Back: ROM is normal, vertebral tenderness, is not appreciated. 15:52 Musculoskeletal/extremity: Joints: All joints are normal except the right hip displays tenderness, the left knee displays painful range of motion, tenderness, Weight bearing: able to fully bear weight, without difficulty. 15:52 Skin: cellulitis, is not appreciated, no rash present. 15:52 Neuro: Orientation: to person, place \T\ time. Mentation: is normal, Cerebellar function: is grossly normal, Motor: moves all fours, strength is normal, Sensation: is normal, Gait: is steady, at a normal pace, without difficulty. Vital Signs: 15:33 BP 131 / 87; Pulse 80; Resp 16; Temp 98.4; Pulse Ox 100% on R/A; Pain 8/10; hb MDM: 15:36 Patient medically screened. cp 16:00 Differential diagnosis: contusion, fracture, multiple trauma. cp 17:55 Data reviewed: vital signs, nurses notes, radiologic studies, plain films. cp 17:55 Test interpretation: by ED physician or midlevel provider: plain radiologic studies. cp Counseling: I had a detailed discussion with the patient and/or guardian regarding: the historical points, exam findings, and any diagnostic results supporting the discharge/admit diagnosis, radiology results, to return to the emergency department if symptoms worsen or persist or if there are any questions or concerns that arise at home. 12/23 15:43 Order name: XRAY Ribs LEFT; Complete Time: 17:53 12/23 17:53 Interpretation: Report reviewed. 12/23 15:43 Order name: Chest Single View XRAY; Complete Time: 17:53 12/23 17:54 Interpretation: Report review. 12/23 15:54 Order name: Accucheck Blood Glucose; Complete Time: 16:26 12/23 16:00 Order name: XRAY Knee LEFT 3 view; Complete Time: 17:53 12/23 17:53 Interpretation: Report reviewed. 12/23 16:00 Order name: XRAY Hip RIGHT 2 view; Complete Time: 17:53 12/23 17:54 Interpretation: Report reviewed. 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 Exp: iw 06/30/2020. Lot #: [id number]. } Route: IM; Site: right deltoid; 16:20 Follow up: Response: No adverse reaction iw Point of Care Testing: Blood Glucose: 16:13 Blood Glucose: 111 mg/dL; iw Ranges: Critical Glucose Levels:Adult <50 mg/dl or >400 mg/dl <40 mg/dl or >180 mg/dl Disposition: 18:21 Co-signature as Attending Physician, Tray Cheng MD. rn Disposition: 12/23/18 17:56 Discharged to Home. Impression: Other slipping, tripping and stumbling and falls, Other chest pain - left lower lateral rib pain, Pain in left knee, Pain in right hip. - Condition is Stable. - Discharge Instructions: Rib Contusion, Knee Pain, Hip Pain. - Prescriptions for Diclofenac Sodium 75 mg Oral Tablet Sustained Release - take 1 tablet by ORAL route 2 times per day; 30 tablet. - Medication Reconciliation Form, Thank You Letter, Antibiotic Education, Prescription Opioid Use form. - Follow up: Private Physician; When: 2 - 3 days; Reason: Recheck today's complaints. - Problem is new. - Symptoms have improved. Signatures: Dispatcher [employer] EDMarian Marcum RN RN iw Tray Cheng MD MD rn Bruce Wright PA PA cp Aleida Harper RN RN hb Botello, Elizabeth eb Corrections: (The following items were deleted from the chart) 18:15 17:56 12/23/2018 17:56 Discharged to Home. Impression: Other slipping, tripping and eb stumbling and falls; Other chest pain - left lower lateral rib pain; Pain in left knee; Pain in right hip. Condition is Stable. Forms are Medication Reconciliation Form, Thank You Letter, Antibiotic Education, Prescription Opioid Use. Follow up: Private Physician; When: 2 - 3 days; Reason: Recheck today's complaints. Problem is new. Symptoms have improved. cp
[2018-12-23 18:30] VITALS: BP 131/87; TEMP 98.4; O2SAT 100
== END 2018-12-23 18:15 | disposition home or self-care (01) ==
LOC: ER 15:26
DX: M25.562 Pain in left knee (principal); R07.89 Other chest pain; R07.81 Pleurodynia; M25.551 Pain in right hip; Z23 Encounter for immunization; W01.0XXA Fall on same level from slipping, tripping and stumbling without subsequent striking against object, initial encounter; Y93.01 Activity, walking, marching and hiking
CPT/HCPCS: 71045; 82962; 90714; 99283

== ENCOUNTER 2019-03-20 06:17 | Emergency (ER) | payer OTHER ==
--- OUTSIDE RECORDS SUMMARY | 2019-03-20 06:19 | XMS REPORT ---
:1975 Author Organization [employer] Care Team Providers Name Role Phone Tito Saundersh Provider Role Unavailable Allergies, Adverse Reactions, Alerts Substance Reaction Event Type N.K.D.A. 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 Active depressive disorder without prior episode Problem Bipolar affective disorder, current F31.60 Active episode mixed, current episode severity unspecified Assessment Current moderate episode of major F32.1 Active depressive disorder without prior episode Assessment Bipolar affective disorder, current F31.60 Active episode mixed, current episode severity unspecified Assessment Severe anxiety F41.9 Active Medications Medication Code Code Instructions Start End Status Dosage System Date Date Effexor NDC 0 100 MG Orally Active 1 tablet Once a day with food Depakote NDC 18978972018 500 MG Orally Active as directed Once a day Trazodone HCl NDC 18340588380 100 MG Orally Active 1 tablet at Once a day bedtime Results No Known Results Summary Purpose [employer] Submission
[2019-03-20] MEDS ORDERED: HYDROCODONE/APAP 5/325 MG TAB ONE (06:40)
[2019-03-20] MEDS ORDERED: IBUPROFEN 400 MG TAB ONE (06:40)
[2019-03-20] MEDS ORDERED: IBUPROFEN 200 MG TAB PO ONE (06:41)
--- NOTE | 2019-03-20 06:58 | EDPHYS ---
Physician Documentation [facility] Name: Jennifer Salazar Age: 43 yrs Sex: Female : 1975 Arrival Date: 03/20/2019 Time: 06:18 Bed 18 Private MD: ED Physician Bruce Jackson HPI: 03/20 06:23 This 43 yrs old Female presents to ER via EMS with complaints of Ankle Injury.pm1 06:23 The patient presents with pain, that is acute, swelling. The complaints affect the left pm1 ankle. Onset: The symptoms/episode began/occurred this morning. Context: The problem was sustained at home, resulted from a mis-step by the patient, The mechanism of injury involved inversion of the affected ankle. The patient is unable to bear weight. Associated signs and symptoms: Pertinent positives: swelling, Pertinent negatives: numbness, tingling. Modifying factors: The symptoms are alleviated by nothing, the symptoms are aggravated by weight bearing, movement. Severity of symptoms: in the emergency department the symptoms are unchanged. 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 - Social history:: Smoking status: unknown. - Ebola Screening: : No symptoms or risks identified at this time. ROS: 06:23 Constitutional: Negative for fever, chills, and weight loss, Eyes: Negative for injury, pm1 pain, redness, and discharge, ENT: Negative for injury, pain, and discharge, Neck: Negative for injury, pain, and swelling, Cardiovascular: Negative for chest pain, palpitations, and edema, Respiratory: Negative for shortness of breath, cough, wheezing, and pleuritic chest pain, Abdomen/GI: Negative for abdominal pain, nausea, vomiting, diarrhea, and constipation, Back: Negative for injury and pain, : Negative for injury, bleeding, discharge, and swelling. 06:23 Skin: Negative for injury, rash, and discoloration, Neuro: Negative for headache, weakness, numbness, tingling, and seizure. 06:23 MS/extremity: Positive for pain, swelling, of the left lateral ankle. Exam: 06:23 Constitutional: This is a well developed, well nourished patient who is awake, alert, pm1 and in no acute distress. Head/Face: Normocephalic, atraumatic. Eyes: Pupils equal round and reactive to light, extra-ocular motions intact. Lids and lashes normal. Conjunctiva and sclera are non-icteric and not injected. Cornea within normal limits. Periorbital areas with no swelling, redness, or edema. ENT: Nares patent. No nasal discharge, no septal abnormalities noted. Tympanic membranes are normal and external auditory canals are clear. Oropharynx with no redness, swelling, or masses, exudates, or evidence of obstruction, uvula midline. Mucous membranes moist. Neck: Trachea midline, no thyromegaly or masses palpated, and no cervical lymphadenopathy. Supple, full range of motion without nuchal rigidity, or vertebral point tenderness. No Meningismus. Chest/axilla: Normal chest wall appearance and motion. Nontender with no deformity. No lesions are appreciated. Cardiovascular: Regular rate and rhythm with a normal S1 and S2. No gallops, murmurs, or rubs. Normal PMI, no JVD. No pulse deficits. Respiratory: Lungs have equal breath sounds bilaterally, clear to auscultation and percussion. No rales, rhonchi or wheezes noted. No increased work of breathing, no retractions or nasal flaring. Abdomen/GI: Soft, non-tender, with normal bowel sounds. No distension or tympany. No guarding or rebound. No evidence of tenderness throughout. Back: No spinal tenderness. No costovertebral tenderness. Full range of motion. Skin: Warm, dry with normal turgor. Normal color with no rashes, no lesions, and no evidence of cellulitis. 06:23 Musculoskeletal/extremity: Extremities: grossly normal except: noted in the left lateral ankle: swelling, tenderness, There is no evidence of decreased ROM, deformity, ROM: intact in all extremities, Circulation is intact in all extremities. 06:23 Neuro: Orientation: is normal, Motor: is normal, moves all fours. Vital Signs: 06:10 BP 124 / 82; Pulse 74; Resp 20 S; Temp 97.8(O); Pulse Ox 100% on R/A; Weight 74.84 kg cc3 (R); Height 5 ft. 7 in. (170.18 cm) (R); 06:10 Body Mass Index 25.84 (74.84 kg, 170.18 cm) cc3 Procedures: 07:00 Splinting: Splint applied to left ankle using Orthoglass splint, applied by myself. pm1 Examined by me, post splint application: neurovascular intact, 2+ distal pulses palpable, brisk capillary refill noted, Patient tolerated well. MDM: 06:18 Patient medically screened. pm1 06:25 Data reviewed: vital signs. Data interpreted: Pulse oximetry: on room air is 100 %. pm1 Interpretation: normal. 06:55 ED course: My impression of Xray: Distal left fibula spiral fracture. pm1 06:56 Counseling: I had a detailed discussion with the patient and/or guardian regarding: the pm1 historical points, exam findings, and any diagnostic results supporting the discharge/admit diagnosis, radiology results, the need for outpatient follow up, for definitive care, a orthopedic surgeon, to return to the emergency department if symptoms worsen or persist or if there are any questions or concerns that arise at home. 03/20 06:22 Order name: Ankle Left 3 View XRAY pm1 03/20 06:56 Order name: Crutches; Complete Time: 07:35 pm1 03/20 06:56 Order name: Splint - Ankle: Orthoglass: Stirrup; Complete Time: 07:35 pm1 03/20 06:56 Order name: Splint - Ankle: Posterior; Complete Time: 07:36 pm1 Administered Medications: 06:30 Drug: Ibuprofen 600 mg Route: PO; cc3 06:43 Follow up: Response: No adverse reaction cc3 06:30 Drug: [place] 5 mg-325 mg 1 tabs Route: PO; cc3 06:42 Follow up: Response: No adverse reaction cc3 07:09 Drug: Zofran 4 mg Route: PO; em 07:46 Follow up: Response: No adverse reaction em 07:10 Drug: morphine 4 mg Route: IM; Site: left deltoid; em 07:46 Follow up: Response: No adverse reaction; Pain is decreased em Disposition: 15:01 Co-signature as Attending Physician, Bruce Jackson MD I agree with the assessment and soy plan of care. Disposition: 03/20/19 06:58 Discharged to Home. Impression: Closed spiral fracture of distal left fibula. - Condition is Stable. - Discharge Instructions: Cast or Splint Care, Adult, Crutch Use, Fibular Ankle Fracture Treated With or Without Immobilization, Adult. - Prescriptions for Tylenol- Codeine #3 300-30 mg Oral Tablet - take 2 tablets by ORAL route every 6 hours As needed; 20 tablet. - Medication Reconciliation Form, Thank You Letter, Antibiotic Education, Prescription Opioid Use form. - Follow up: Emergency Department; When: As needed; Reason: Worsening of condition. Follow up: Private Physician; When: 2 - 3 days; Reason: Recheck today's complaints, Continuance of care, Re-evaluation by your physician. - Problem is new. - Symptoms have improved. Signatures: Dispatcher [employer] Bruce Farias MD MD cha Munoz, Edgar, SURGICAL INSTRUMENT MAKER SURGICAL INSTRUMENT MAKER Elaine Mendez, RN RN ak1 Clark Gómez, HOT TAMALE WORKER HOT TAMALE WORKER pm1 Regina Nicholson cc3 Corrections: (The following items were deleted from the chart) 07:00 06:58 03/20/2019 06:58 Discharged to Home. Impression: Displaced spiral fracture of pm1 shaft of left fibula. Condition is Stable. Forms are Medication Reconciliation Form, Thank You Letter, Antibiotic Education, Prescription Opioid Use. Follow up: Emergency Department; When: As needed; Reason: Worsening of condition. Follow up: Private Physician; When: 2 - 3 days; Reason: Recheck today's complaints, Continuance of care, Re-evaluation by your physician. Problem is new. Symptoms have improved. pm1 08:15 07:00 03/20/2019 06:58 Discharged to Home. Impression: Closed spiral fracture of distal em left fibula. Condition is Stable. Discharge Instructions: Fibular Ankle Fracture Treated With or Without Immobilization, Adult. Forms are Medication Reconciliation Form, Thank You Letter, Antibiotic Education, Prescription Opioid Use. Follow up: Emergency Department; When: As needed; Reason: Worsening of condition. Follow up: Private Physician; When: 2 - 3 days; Reason: Recheck today's complaints, Continuance of care, Re-evaluation by your physician. Problem is new. Symptoms have improved. pm1
--- NOTE | 2019-03-20 06:58 | ER ---
Nurse's Notes [facility] Name: Jennifer Salazar Age: 43 yrs Sex: Female : 1975 Arrival Date: 03/20/2019 Time: 06:18 Bed 18 Private MD: Diagnosis: Closed spiral fracture of distal left fibula Presentation: 03/20 06:19 Presenting complaint: Patient states: at 0500 twisted her left ankle stepping up into ak1 her house. pt with swelling no deformity. pt crying. EMS applied ice to left ankle. Transition of care: patient was not received from another setting of care. Onset of symptoms was March 20, 2019. Risk Assessment: Do you want to hurt yourself or someone else? Patient reports no desire to harm self or others. Initial Sepsis Screen: Does the patient meet any 2 criteria? No. Patient's initial sepsis screen is negative. Does the patient have a suspected source of infection? No. Patient's initial sepsis screen is negative. Care prior to arrival: None. 06:19 Method Of Arrival: EMS: [facility] 06:19 Acuity: BECKY 4 ak1 Triage Assessment: 06:23 General: Behavior is crying. ak1 06:24 General: Appears uncomfortable. Pain: Complains of pain in left lateral malleolus. ak1 EENT: No signs and/or symptoms were reported regarding the EENT system. Neuro: No deficits noted. Cardiovascular: No deficits noted. Respiratory: No deficits noted. GI: No signs and/or symptoms were reported involving the gastrointestinal system. : No signs and/or symptoms were reported regarding the genitourinary system. Derm: No signs and/or symptoms reported regarding the dermatologic system. Musculoskeletal: Swelling present in left lateral ankle Reports pain in left lateral ankle. 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 - Social history:: Smoking status: unknown. - Ebola Screening: : No symptoms or risks identified at this time. Screenin:10 Abuse screen: Denies threats or abuse. Denies injuries from another. Nutritional cc3 screening: No deficits noted. Tuberculosis screening: No symptoms or risk factors identified. Fall Risk Ambulatory Aid- None/Bed Rest/Nurse Assist (0 pts). Gait- Normal/Bed Rest/Wheelchair (0 pts) Mental Status- Oriented to own ability (0 pts). Assessment: 06:25 Reassessment: Patient appears in no apparent distress at this time. No changes from ak1 previously documented assessment. see triage assessment. pt informed of plan of care and expected wait times for medication effectiveness and Xray results. 06:42 Reassessment: Patient appears in no apparent distress at this time. Patient and/or cc3 family updated on plan of care and expected duration. Pain level reassessed. Patient is alert, oriented x 3, equal unlabored respirations, skin warm/dry/pink. xray's just done, awaiting result. 07:05 Reassessment: Patient appears in no apparent distress at this time. Patient and/or em family updated on plan of care and expected duration. Pain level reassessed. Patient is alert, oriented x 3, equal unlabored respirations, skin warm/dry/pink. reports pain medication is not working, provider notified, new medication orders received. 07:30 Reassessment: splint checked by provider. em 08:00 Reassessment: Patient appears in no apparent distress at this time. Patient and/or em family updated on plan of care and expected duration. Pain level reassessed. Patient is alert, oriented x 3, equal unlabored respirations, skin warm/dry/pink. rates pain 7/10 Patient states feeling better. Vital Signs: 06:10 BP 124 / 82; Pulse 74; Resp 20 S; Temp 97.8(O); Pulse Ox 100% on R/A; Weight 74.84 kg cc3 (R); Height 5 ft. 7 in. (170.18 cm) (R); 06:10 Body Mass Index 25.84 (74.84 kg, 170.18 cm) cc3 ED Course: 06:18 Patient arrived in ED. ak1 06:18 Clark Gómez NP is PHCP. pm1 06:18 Bruce Jackson MD is Attending Physician. pm1 06:20 Triage completed. ak1 06:23 Arm band placed on Patient placed in an exam room, on a stretcher, on pulse oximetry, ak1 Patient notified of wait time. 06:23 Patient has correct armband on for positive identification. Bed in low position. Call ak1 light in reach. Side rails up X2. Pulse ox on. NIBP on. 06:46 X-ray completed. Portable x-ray completed in exam room. Patient tolerated procedure kw well. 06:47 Ankle Left 3 View XRAY In Process Unspecified. EDMS 07:03 Waqar Trevino LVN is Primary Nurse. em 07:30 Crutch training done. Orthoglass splint: Posterior long leg splint applied on left leg. em stirrup splint applied on left leg. 07:44 No provider procedures requiring assistance completed. Patient did not have IV access em during this emergency room visit. Administered Medications: 06:30 Drug: Ibuprofen 600 mg Route: PO; cc3 06:43 Follow up: Response: No adverse reaction cc3 06:30 Drug: Tillar 5 mg-325 mg 1 tabs Route: PO; cc3 06:42 Follow up: Response: No adverse reaction cc3 07:09 Drug: Zofran 4 mg Route: PO; em 07:46 Follow up: Response: No adverse reaction em 07:10 Drug: morphine 4 mg Route: IM; Site: left deltoid; em 07:46 Follow up: Response: No adverse reaction; Pain is decreased em Outcome: 06:58 Discharge ordered by MD. pm1 07:45 Discharged to home via wheelchair. em 07:45 Condition: good 07:45 Discharge instructions given to patient, Instructed on discharge instructions, follow up and referral plans. medication usage, Demonstrated understanding of instructions, follow-up care, medications, crutch walking, splint care, Prescriptions given X 1. 08:15 Patient left the ED. em Signatures: Dispatcher [employer] EDMS Waqar Trevino LVN LVN em Val Bustillo Amber, RN RN ak1 Clark Gómez, ADOLPH REELING AND TUBING MACHINE OPERATOR pm1 Regina Nicholson cc3
[2019-03-20] MEDS ORDERED: MORPHINE 4 MG/ML SYR ONE (07:20)
[2019-03-20] MEDS ORDERED: ONDANSETRON 4 MG (ODT) TAB ONE (07:20)
--- NOTE | 2019-03-20 08:37 | RAD REPORT ---
EXAM DESCRIPTION: RAD - Ankle Left 3 View - 03/20/2019 6:47 am CLINICAL HISTORY: PAIN Ankle twisting injury COMPARISON: No comparisons FINDINGS: Oblique fracture of the distal fibula is present with adjacent soft tissue swelling. No di slocation is evident.
== END 2019-03-20 08:15 | disposition home or self-care (01) ==
LOC: ER 06:17
PROC: 2W3RX1Z Immobilization of Left Lower Leg using Splint (ICD-10-PCS; principal; 2019-03-20)
DX: S82.442A Displaced spiral fracture of shaft of left fibula, initial encounter for closed fracture (principal); X50.1XXA Overexertion from prolonged static or awkward postures, initial encounter; Y92.009 Unspecified place in unspecified non-institutional (private) residence as the place of occurrence of the external cause; F31.9 Bipolar disorder, unspecified; F41.9 Anxiety disorder, unspecified
CPT/HCPCS: 96372; 99284

== ENCOUNTER 2019-03-29 11:31 | Emergency (ER) | payer OTHER ==
--- OUTSIDE RECORDS SUMMARY | 2019-03-29 11:33 | XMS REPORT ---
[...] Once a day with food Depakote NDC 80924760476 500 MG Orally Active as directed Once a day Trazodone HCl NDC 57661381079 100 MG Orally Active 1 tablet at Once a day bedtime Results No Known Results Summary Purpose eClinicalWorks Submission
[2019-03-29] MEDS ORDERED: HYDROCODONE/APAP 10/325 TAB ONE (11:59)
--- NOTE | 2019-03-29 12:19 | RAD REPORT ---
EXAM DESCRIPTION: RAD - Ankle Left 3 View - 03/29/2019 11:58 am CLINICAL HISTORY: PAIN COMPARISON: Ankle Left 3 View dated 03/20/2019 FINDINGS: Oblique fracture involves the distal fibula with surrounding soft tissue swelling. No disl ocation evident.
--- NOTE | 2019-03-29 12:34 | ER ---
Nurse's Notes [facility] Name: Jennifer Salazar Age: 43 yrs Sex: Female : 1975 Arrival Date: 03/29/2019 Time: 11:33 Bed 16 Private MD: Diagnosis: Oblique fracture of left distal fibula Presentation: 03/29 11:33 Presenting complaint: EMS states: c/o left ankle pain and splint needing to be fixed. A rb1 \T\ O x 4, vital signs are stable. BS 171. Transition of care: patient was not received from another setting of care. Onset of symptoms was March 29, 2019. Risk Assessment: Do you want to hurt yourself or someone else? Patient reports no desire to harm self or others. Initial Sepsis Screen: Does the patient meet any 2 criteria? No. Patient's initial sepsis screen is negative. Does the patient have a suspected source of infection? No. Patient's initial sepsis screen is negative. Care prior to arrival: None. 11:33 Method Of Arrival: EMS: [place] [id number] 11:33 Acuity: BECKY 3 rb1 Triage Assessment: 11:33 General: Appears uncomfortable, Behavior is crying. Pain: Complains of pain in left rb1 ankle Pain currently is 10 out of 10 on a pain scale. Neuro: Level of Consciousness is awake, alert, obeys commands, Oriented to person, place, time, situation. Cardiovascular: Capillary refill < 3 seconds is brisk in left toes. Respiratory: Airway is patent Respiratory effort is even, unlabored, Respiratory pattern is regular, symmetrical. GI: No signs and/or symptoms were reported involving the gastrointestinal system. : No signs and/or symptoms were reported regarding the genitourinary system. Derm: Skin is pink, warm \T\ dry. Musculoskeletal: Range of motion: limited in left ankle. 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 - Ebola Screening: : Patient negative for fever greater than or equal to 101.5 degrees Fahrenheit, and additional compatible Ebola Virus Disease symptoms. - Social history:: Smoking status: Patient uses tobacco products, smokes one-half pack cigarettes per day. Screenin:33 Abuse screen: Denies threats or abuse. Nutritional screening: No deficits noted. rb1 Tuberculosis screening: No symptoms or risk factors identified. Fall Risk No fall in past 12 months (0 pts). Secondary diagnosis (15 points) impaired mobility, No IV (0 pts). Ambulatory Aid- Crutches/Cane/Walker (15 pts). Gait- Impaired (20 pts.). Mental Status- Oriented to own ability (0 pts). Total Borja Fall Scale indicates High Risk Score (45 or more points). Fall prevention measures have been instituted. Side Rails Up X 2 Placed Close to Nursing Station 1:1 Attendant Assigned Frequent Obs/Assessments Occuring As available patient and family educated on Fall Prevention Program and Strategies. Assessment: 11:33 General: See triage assessment. rb1 12:30 Reassessment: Patient appears in no apparent distress at this time. No changes from rb1 previously documented assessment. 13:00 Reassessment: Discharge is pending due to getting splint approval by the provider. rb1 13:36 Reassessment: Patient appears in no apparent distress at this time. Patient and/or rb1 family updated on plan of care and expected duration. Pain level reassessed. Patient is alert, oriented x 3, equal unlabored respirations, skin warm/dry/pink. pain 8/10. 14:00 Reassessment: Patient appears in no apparent distress at this time. No changes from rb1 previously documented assessment. 14:09 Reassessment: Provider at bedside with ELLIOTT Gallego putting on a new splint. rb1 Vital Signs: 11:33 BP 129 / 90; Pulse 100; Resp 20; Temp 98.2(O); Pulse Ox 100% ; Weight 73.94 kg (R); rb1 Height 5 ft. 7 in. (170.18 cm); Pain 10/10; 12:30 BP 109 / 59; Pulse 69; Resp 17; Temp 98.1(O); Pulse Ox 99% on R/A; Pain 10/10; rb1 13:30 BP 112 / 87; Pulse 73; Resp 18; Pulse Ox 96% on R/A; Pain 8/10; rb1 14:25 BP 114 / 85; Pulse 78; Resp 19; Temp 98.9(O); Pulse Ox 98% on R/A; Pain 8/10; rb1 11:33 Body Mass Index 25.53 (73.94 kg, 170.18 cm) rb1 ED Course: 11:33 Patient arrived in ED. rb1 11:33 Patient has correct armband on for positive identification. Bed in low position. Call rb1 light in reach. Side rails up X 1. Pulse ox on. NIBP on. 11:33 Arm band placed on left wrist. rb1 11:34 Leanna Gómez NP is PHCP. pm1 11:34 Pipe Monzon MD is Attending Physician. pm1 11:36 Linn Allen, RN is Primary Nurse. rb1 11:38 Triage completed. rb1 11:58 Ankle Left 3 View XRAY In Process Unspecified. EDMS 12:54 Orthoglass splint: Posterior short lleg splint applied on stirrup splint applied on mh5 left leg. 14:25 LEANNA APPROVED THE SPLINT. 5 14:35 No provider procedures requiring assistance completed. Patient did not have IV access rb1 during this emergency room visit. Administered Medications: 11:48 Drug: [place] 10 mg-325 mg 1 tabs Route: PO; rb1 13:00 Follow up: Response: No adverse reaction; Pain is unchanged, physician notified rb1 13:33 Drug: Ibuprofen 600 mg Route: PO; rb1 14:00 Follow up: Response: No adverse reaction; Pain is unchanged, physician notified rb1 14:10 Drug: morphine 4 mg Route: IM; Site: right deltoid; rb1 14:30 Follow up: Response: No adverse reaction; Pain is decreased rb1 Outcome: 12:34 Discharge ordered by MD. pm1 14:35 Patient left the ED. rb1 14:35 Discharged to home via wheelchair, with friend. rb1 14:35 Condition: stable 14:35 Discharge instructions given to patient, Instructed on discharge instructions, follow up and referral plans. medication usage, Demonstrated understanding of instructions, follow-up care, medications, Prescriptions given X 1. Signatures: Dispatcher [employer] EDMS Linn Allen, RN RN rb1 Leanna Gómez NP STATIONS SUPERINTENDENT 1 Brandi Bennett [facility] Corrections: (The following items were deleted from the chart) 16:53 14:53 Patient left the ED. rb1 rb1
--- NOTE | 2019-03-29 12:35 | EDPHYS ---
Physician Documentation [facility] Name: Jennifer Salazar Age: 43 yrs Sex: Female : 1975 Arrival Date: 03/29/2019 Time: 11:33 Bed 16 Private MD: ED Physician Pipe Monzon HPI: 03/29 11:49 This 43 yrs old Female presents to ER via EMS with complaints of Left Ankle pm1 Pain. 11:49 The patient presents with pain. The complaints affect the left ankle. Onset: The pm1 symptoms/episode began/occurred just prior to arrival. Context: The problem was sustained at home, resulted from Patient tripped and reported hitting her left foot against the ground and had increased pain to left foot. Patient presents to ER with her splint dirty with mud and sticker ball seeds. Appears that patient is walking on her splint. Associated signs and symptoms: Pertinent negatives: calf tenderness, fever, nausea, numbness, vomiting. Severity of symptoms: in the emergency department the symptoms are actually worse. The patient has been recently seen at the [facility] Emergency Department, 10 days ago for oblique fracture of left distal fibula. 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 - Ebola Screening: : Patient negative for fever greater than or equal to 101.5 degrees Fahrenheit, and additional compatible Ebola Virus Disease symptoms. - Social history:: Smoking status: Patient uses tobacco products, smokes one-half pack cigarettes per day. ROS: 11:49 Constitutional: Negative for fever, chills, and weight loss, Eyes: Negative for injury, pm1 pain, redness, and discharge, ENT: Negative for injury, pain, and discharge, Neck: Negative for injury, pain, and swelling, Cardiovascular: Negative for chest pain, palpitations, and edema, Respiratory: Negative for shortness of breath, cough, wheezing, and pleuritic chest pain, Abdomen/GI: Negative for abdominal pain, nausea, vomiting, diarrhea, and constipation, Back: Negative for injury and pain, : Negative for injury, bleeding, discharge, and swelling. 11:49 Skin: Negative for injury, rash, and discoloration, Neuro: Negative for headache, weakness, numbness, tingling, and seizure. 11:49 MS/extremity: Positive for pain, of the left ankle, Negative for paresthesias, tingling. Exam: 11:49 Constitutional: This is a well developed, well nourished patient who is awake, alert, pm1 and in no acute distress. Head/Face: Normocephalic, atraumatic. Eyes: Pupils equal round and reactive to light, extra-ocular motions intact. Lids and lashes normal. Conjunctiva and sclera are non-icteric and not injected. Cornea within normal limits. Periorbital areas with no swelling, redness, or edema. ENT: Nares patent. No nasal discharge, no septal abnormalities noted. Tympanic membranes are normal and external auditory canals are clear. Oropharynx with no redness, swelling, or masses, exudates, or evidence of obstruction, uvula midline. Mucous membranes moist. Neck: Trachea midline, no thyromegaly or masses palpated, and no cervical lymphadenopathy. Supple, full range of motion without nuchal rigidity, or vertebral point tenderness. No Meningismus. Chest/axilla: Normal chest wall appearance and motion. Nontender with no deformity. No lesions are appreciated. Cardiovascular: Regular rate and rhythm with a normal S1 and S2. No gallops, murmurs, or rubs. Normal PMI, no JVD. No pulse deficits. Respiratory: Lungs have equal breath sounds bilaterally, clear to auscultation and percussion. No rales, rhonchi or wheezes noted. No increased work of breathing, no retractions or nasal flaring. Abdomen/GI: Soft, non-tender, with normal bowel sounds. No distension or tympany. No guarding or rebound. No evidence of tenderness throughout. Back: No spinal tenderness. No costovertebral tenderness. Full range of motion. Skin: Warm, dry with normal turgor. Normal color with no rashes, no lesions, and no evidence of cellulitis. 11:49 Musculoskeletal/extremity: Extremities: grossly normal except: noted in the left lateral ankle: mild tenderness, Compartment Syndrome exam of affected extremity: is normal. DVT Exam: No signs of deep vein thrombosis. 11:49 Neuro: Orientation: is normal, Motor: is normal, moves all fours, Sensation: is normal, no obvious gross deficits. Vital Signs: 11:33 BP 129 / 90; Pulse 100; Resp 20; Temp 98.2(O); Pulse Ox 100% ; Weight 73.94 kg (R); rb1 Height 5 ft. 7 in. (170.18 cm); Pain 10/10; 12:30 BP 109 / 59; Pulse 69; Resp 17; Temp 98.1(O); Pulse Ox 99% on R/A; Pain 10/10; rb1 13:30 BP 112 / 87; Pulse 73; Resp 18; Pulse Ox 96% on R/A; Pain 8/10; rb1 14:25 BP 114 / 85; Pulse 78; Resp 19; Temp 98.9(O); Pulse Ox 98% on R/A; Pain 8/10; rb1 11:33 Body Mass Index 25.53 (73.94 kg, 170.18 cm) rb1 MDM: 11:35 Patient medically screened. pm1 12:31 Data reviewed: vital signs. Data interpreted: Pulse oximetry: on room air is 100 %. pm1 Interpretation: normal. Counseling: I had a detailed discussion with the patient and/or guardian regarding: the historical points, exam findings, and any diagnostic results supporting the discharge/admit diagnosis, radiology results, the need for outpatient follow up, for definitive care, a orthopedic surgeon, to return to the emergency department if symptoms worsen or persist or if there are any questions or concerns that arise at home. 03/29 11:40 Order name: Ankle Left 3 View XRAY; Complete Time: 12:31 pm1 03/29 12:38 Order name: Splint - Ankle: Posterior; Complete Time: 12:54 pm1 03/29 12:38 Order name: Splint - Ankle: Orthoglass: Stirrup; Complete Time: 12:54 pm1 Administered Medications: 11:48 Drug: [place] 10 mg-325 mg 1 tabs Route: PO; rb1 13:00 Follow up: Response: No adverse reaction; Pain is unchanged, physician notified rb1 13:33 Drug: Ibuprofen 600 mg Route: PO; rb1 14:00 Follow up: Response: No adverse reaction; Pain is unchanged, physician notified rb1 14:10 Drug: morphine 4 mg Route: IM; Site: right deltoid; rb1 14:30 Follow up: Response: No adverse reaction; Pain is decreased rb1 Disposition: 03/29/19 12:34 Discharged to Home. Impression: Oblique fracture of left distal fibula. - Condition is Stable. - Discharge Instructions: Ankle Fracture, Cast or Splint Care, Adult, Crutch Use. - Prescriptions for Tylenol- Codeine #3 300-30 mg Oral Tablet - take 2 tablets by ORAL route every 6 hours As needed; 20 tablet. - Medication Reconciliation Form, Thank You Letter, Antibiotic Education, Prescription Opioid Use form. - Follow up: Emergency Department; When: As needed; Reason: Worsening of condition. Follow up: Private Physician; When: 2 - 3 days; Reason: Recheck today's complaints, Continuance of care, Re-evaluation by your physician. - Problem is new. - Symptoms have improved. Addendum: 04/02/2019 20:48 Co-signature as Attending Physician, Pipe Monzon MD. g s Signatures: Dispatcher [employer] Linn Casiano, RN RN rb1 Clark Gómez, JUNIOR DATABASE ADMINISTRATOR JUNIOR DATABASE ADMINISTRATOR pm1 Pipe Monzon MD MD Corrections: (The following items were deleted from the chart) 03/29 14:53 12:34 03/29/2019 12:34 Discharged to Home. Impression: Oblique fracture of left distal rb1 fibula. Condition is Stable. Forms are Medication Reconciliation Form, Thank You Letter, Antibiotic Education, Prescription Opioid Use. Follow up: Emergency Department; When: As needed; Reason: Worsening of condition. Follow up: Private Physician; When: 2 - 3 days; Reason: Recheck today's complaints, Continuance of care, Re-evaluation by your physician. Problem is new. Symptoms have improved. pm1
[2019-03-29] MEDS ORDERED: IBUPROFEN 400 MG TAB ONE (13:43)
[2019-03-29] MEDS ORDERED: IBUPROFEN 200 MG TAB PO ONE (13:44)
[2019-03-29] MEDS ORDERED: MORPHINE 4 MG/ML SYR ONE (14:20)
[2019-03-29 16:12] VITALS: TEMP 98.1
[2019-03-29 16:14] VITALS: BP 112/87; O2SAT 96
== END 2019-03-29 14:53 | disposition home or self-care (01) ==
LOC: ER 11:31
PROC: 2W3RX1Z Immobilization of Left Lower Leg using Splint (ICD-10-PCS; principal; 2019-03-29)
DX: S82.432A Displaced oblique fracture of shaft of left fibula, initial encounter for closed fracture (principal); W01.10XA Fall on same level from slipping, tripping and stumbling with subsequent striking against unspecified object, initial encounter; Y93.9 Activity, unspecified; Y92.009 Unspecified place in unspecified non-institutional (private) residence as the place of occurrence of the external cause; F31.9 Bipolar disorder, unspecified; F20.9 Schizophrenia, unspecified; F17.210 Nicotine dependence, cigarettes, uncomplicated
CPT/HCPCS: 96372; 99284

== ENCOUNTER 2019-06-23 17:20 | Emergency (ER) | payer OTHER ==
--- OUTSIDE RECORDS SUMMARY | 2019-06-23 17:23 | XMS REPORT ---
[...] Once a day with food Depakote NDC 57866312744 500 MG Orally Active as directed Once a day Trazodone HCl NDC 39545683184 100 MG Orally Active 1 tablet at Once a day bedtime Results No Known Results Summary Purpose eClinicalWorks Submission
--- OUTSIDE RECORDS SUMMARY | 2019-06-23 17:23 | XMS REPORT ---
:1975 Author Organization eClinicalWorks Care Team Providers Name Role Phone Tito Saundersh Provider Role Unavailable Allergies No Known Allergies Problems Problem Type Condition Code Onset Dates Condition Status Problem Pain of joint of left ankle and M25.572 Active foot Problem Bipolar affective disorder, F31.60 Active current episode mixed, current episode severity unspecified Problem Closed nondisplaced fracture of S82.65XA Active lateral malleolus of left fibula, initial encounter Problem Severe anxiety F41.9 Active Problem Current moderate episode of major F32.1 Active depressive disorder without prior episode Medications No Known Medications Results No Known Results Summary Purpose eClinicalWorks Submission
--- OUTSIDE RECORDS SUMMARY | 2019-06-23 17:23 | XMS REPORT ---
:1975 Author Organization eClinicalWorks Care Team Providers Name Role Phone Saunders [facility] Provider Role Unavailable Allergies No Known Allergies [...] Active depressive disorder without prior episode Medications Medication Code Code Instructions Start End Status Dosage System Date Date Acetaminophen- NDC 98623803346 300-30 MG Orally Active not Codeine #3 defined Results No Known Results Summary Purpose eClinicalWorks Submission
--- OUTSIDE RECORDS SUMMARY | 2019-06-23 17:24 | XMS REPORT ---
:1975 Author Organization eClinicalWorks Care Team Providers Name Role Phone Osorio Mac Provider Role Unavailable Allergies No Known Allergies Problems Problem Type Condition Code Onset Dates Condition Status Problem Closed nondisplaced fracture of S82.65XD Active lateral malleolus of left fibula with routine healing Problem Closed nondisplaced fracture of S82.65XA Active lateral malleolus of left fibula, initial encounter Problem Left sciatic nerve pain M54.32 Active Problem Severe anxiety F41.9 Active Problem Current moderate episode of major F32.1 Active depressive disorder without prior episode Problem Pain of joint of left ankle and M25.572 Active foot Problem Bipolar affective disorder, F31.60 Active current episode mixed, current episode severity unspecified Medications Medication Code Code Instructions Start End Status Dosage System Date Date Depakote [facility] 41940599225 500 MG Orally Active not defined Lorazepam ND 60172207243 1 MG Orally Once Active 1 tablet at a day bedtime as needed Zoloft ND 74091831420 100 mg Oral Active 2 tab Klonopin ND 42035932737 0.5 MG Orally Active 1 tablet at Once a day bedtime Tramadol HCl ND 02289377678 50 MG Orally 1 May 07May Active as directed PO 6 HRS PRN 2018, PAIN 2019 Acetaminophen- ND 26122618565 300-30 MG Orally Active not defined Codeine #3 Effexor NDC 0 100 MG Orally Active 1 tablet Once a day with food Tylenol # 3 NDC 0 300/30mg PO April 02, Active one tab every 6 hrs 2019 Results No Known Results Summary Purpose eClinicalWorks Submission
--- OUTSIDE RECORDS SUMMARY | 2019-06-23 17:24 | XMS REPORT ---
:1975 Author Organization eClinicalWorks Care Team Providers Name Role Phone OsorioMac Provider Role Unavailable Allergies No Known Allergies [...] episode mixed, current episode severity unspecified Medications No Known Medications Results No Known Results Summary Purpose eClinicalWorks Submission
--- OUTSIDE RECORDS SUMMARY | 2019-06-23 17:24 | XMS REPORT ---
:1975 Author Organization eClinicalWorks Care Team Providers Name Role Phone Mac Osorio Provider Role Unavailable Allergies, Adverse Reactions, Alerts Substance Reaction Event Type N.K.D.A. Info Not Available Non Drug Allergy Problems Problem Type Condition Code Onset Dates Condition Status Assessment Closed nondisplaced fracture of S82.65XD Active lateral malleolus of left fibula with routine healing Assessment Pain of joint of left ankle and M25.572 Active foot Problem Closed nondisplaced fracture of S82.65XD Active [...] Start End Status Dosage System Date Date Klonopin [facility] 66400471333 0.5 MG Orally Active 1 tablet Once a day at bedtime Lorazepam [facility] 59213804940 1 MG Orally Once Active 1 tablet a day at bedtime as needed Depakote [facility] 04342797490 500 MG Orally Active not defined Acetaminophen- ND 57569355808 300-30 MG Orally Active not Codeine #3 defined Tylenol # 3 NDC 0 300/30mg PO April 02, Active one tab every 6 hrs 2018 Zoloft ND 01361124577 100 mg Oral Active 2 tab Effexor NDC 0 100 MG Orally Active 1 tablet Once a day with food Results No Known Results Summary Purpose eClinicalWorks Submission
--- OUTSIDE RECORDS SUMMARY | 2019-06-23 17:24 | XMS REPORT ---
:1975 Author Organization eClinicalWorks Care Team Providers Name Role Phone OsorioMac Provider Role Unavailable Allergies No Known Allergies Problems Problem Type Condition Code Onset Dates Condition Status Problem Closed nondisplaced fracture of S82.65XA Active lateral malleolus of left fibula, initial encounter Problem Pain of joint of left ankle and M25.572 Active foot Problem Closed nondisplaced fracture of S82.65XD Active lateral malleolus of left fibula with routine healing Problem Current moderate episode of major F32.1 Active depressive disorder without prior episode Problem Bipolar affective disorder, F31.60 Active current episode mixed, current episode severity unspecified Problem Severe anxiety F41.9 Active Medications No Known Medications Results No Known Results Summary Purpose eClinicalWorks Submission
--- OUTSIDE RECORDS SUMMARY | 2019-06-23 17:24 | XMS REPORT ---
:1975 Author Organization eClinicalWorks Care Team Providers Name Role Phone Mac Osorio Provider Role Unavailable Allergies, Adverse Reactions, Alerts Substance Reaction Event Type N.K.D.A. Info Not Available Non Drug Allergy Problems Problem Type Condition Code Onset Dates Condition Status Assessment Pain of joint of left ankle and M25.572 Active foot Assessment Closed nondisplaced fracture of S82.65XD Active [...] unspecified Problem Severe anxiety F41.9 Active Medications Medication Code Code Instructions Start End Status Dosage System Date Date Lorazepam [facility] 74738584297 1 MG Orally Once Active 1 tablet a day at bedtime as needed Acetaminophen- NDC 08519227988 300-30 MG Orally Active not Codeine #3 defined Effexor NDC 0 100 MG Orally Active 1 tablet Once a day with food Klonopin ND 51617483689 0.5 MG Orally Active 1 tablet Once a day at bedtime Zoloft ND 08563084552 100 mg Oral Active 2 tab Tylenol # 3 NDC 0 300/30mg PO April 02, Active one tab every 6 hrs 2018 Depakote ND 04087236746 500 MG Orally Active not defined Results No Known Results Summary Purpose eClinicalWorks Submission
--- OUTSIDE RECORDS SUMMARY | 2019-06-23 17:24 | XMS REPORT ---
[...] left ankle and M25.572 Active foot Assessment Left sciatic nerve pain M54.32 Active Problem Closed nondisplaced fracture of S82.65XD Active [...] Start End Status Dosage System Date Date Tylenol # 3 NDC 0 300/30mg PO April 02, Active one tab every 6 hrs 2018 Zoloft ND 67692164041 100 mg Oral Active 2 tab Depakote ND 46314453502 500 MG Orally Active not defined Effexor NDC 0 100 MG Orally Active 1 tablet Once a day with food Lorazepam NDC 84903265857 1 MG Orally Once Active 1 tablet a day at bedtime as needed Klonopin ND 34826184069 0.5 MG Orally Active 1 tablet Once a day at bedtime Acetaminophen- NDC 01214031630 300-30 MG Orally Active not Codeine #3 defined Tylenol # 3 NDC 0 300/30mg 1 PO Q May 07May Active one tab 6 hrs prn pain 2018 Results No Known Results Summary Purpose eClinicalWorks Submission
[2019-06-23] MEDS ORDERED: LORAZEPAM 1 MG TABLET ONE (17:54)
[2019-06-23] MEDS ORDERED: DOXYCYCLINE 100 MG CAP PO ONE (17:54)
[2019-06-23] MEDS ORDERED: FAMOTIDINE 20 MG TAB ONE (17:54)
[2019-06-23] MEDS ORDERED: DIPHENHYDRAMINE 25 MG TAB/CAP ONE (17:54)
--- NOTE | 2019-06-23 17:57 | ER ---
Nurse's Notes [facility] Name: Jennifer Salazar Age: 44 yrs Sex: Female : 1975 Arrival Date: 06/23/2019 Time: 17:21 Bed 16 Private MD: Diagnosis: Insect bite (nonvenomous) of left upper arm;Insect bite (nonvenomous) of right upper arm;Insect bite (nonvenomous) of back wall of thorax;Bipolar disorder;Anxiety disorder, unspecified Presentation: 06/23 17:30 Presenting complaint: Patient states: I feel like I have bugs under my skin and I have la1 really bad diarrhea and I have had C Diff in the past. Transition of care: patient was not received from another setting of care. Onset of symptoms was June 23, 2019. Risk Assessment: Do you want to hurt yourself or someone else? Patient reports no desire to harm self or others. Initial Sepsis Screen: Does the patient meet any 2 criteria? No. Patient's initial sepsis screen is negative. Does the patient have a suspected source of infection? No. Patient's initial sepsis screen is negative. Care prior to arrival: None. 17:30 Method Of Arrival: Ambulatory la1 17:30 Acuity: BECKY 3 la1 Historical: - Allergies: 17:29 No Known Allergies; la1 - PMHx: 17:29 Anxiety; Bipolar disorder; Depression; Schizophrenia; la1 - PSHx: 17:29 Appendectomy; Cholecystectomy; Tubal ligation; la1 - Immunization history:: Adult Immunizations up to date. - Social history:: Smoking status: Patient uses tobacco products, smokes two packs cigarettes per day. - Ebola Screening: : No symptoms or risks identified at this time. Screenin:00 Abuse screen: Denies threats or abuse. Denies injuries from another. Nutritional sv screening: No deficits noted. Tuberculosis screening: No symptoms or risk factors identified. Fall Risk None identified. Assessment: 18:00 General: Appears in no apparent distress. uncomfortable, well developed, Behavior is sv cooperative, appropriate for age, anxious, animated and loud. Pain: Denies pain. Neuro: Level of Consciousness is awake, alert, obeys commands, Oriented to person, place, time, situation, Moves all extremities. Full function Gait is steady. Respiratory: Airway is patent Respiratory effort is even, unlabored, Respiratory pattern is regular, symmetrical. GI: Reports diarrhea. Derm: Skin is pink, warm \\T\\ dry. Rash noted that is red, raised, on back, chest, right arm and left arm Reports "I want to know what is infesting in me! Under my skin, I need to know what it is.". 18:02 Reassessment: Attempted to deescalate the pt but refused to listen and stated "I don't sv want to hear you anymore." Friend at the bedside and raised his eyebrows and shrug his shoulders up. Vital Signs: 17:30 BP 127 / 95; Pulse 85; Resp 16; Temp 97.8; Pulse Ox 98% on R/A; Weight 74.84 kg; Height la1 5 ft. 6 in. (167.64 cm); 17:30 Body Mass Index 26.63 (74.84 kg, 167.64 cm) la1 ED Course: 17:21 Patient arrived in ED. as 17:30 Triage completed. la1 17:30 Arm band placed on left wrist. la1 17:35 Bruce Jackson MD is Attending Physician. soy 17:53 Cherry Cisse, ALEKSEY is Primary Nurse. sv 18:00 Patient has correct armband on for positive identification. Bed in low position. Call sv light in reach. Adult w/ patient. 18:04 No provider procedures requiring assistance completed. Patient did not have IV access sv during this emergency room visit. Administered Medications: 18:03 Drug: Benadryl 50 mg Route: PO; sv 18:04 Follow up: Response: Medication administered at discharge. sv 18:03 Drug: Pepcid 20 mg Route: PO; sv 18:04 Follow up: Response: Medication administered at discharge. sv 18:03 Drug: Ativan 1 mg Route: PO; sv 18:04 Follow up: Response: Medication administered at discharge. sv 18:03 Drug: Doxycycline 100 mg Route: PO; sv 18:03 Follow up: Response: Medication administered at discharge. sv Outcome: 17:56 Discharge ordered by . soy 18:04 Discharged to home ambulatory, with friend. sv 18:04 Condition: stable 18:04 Discharge instructions given to patient, Instructed on discharge instructions, follow up and referral plans. no drinking with medication, no driving heavy equipment, medication usage, Demonstrated understanding of instructions, follow-up care, medications, Prescriptions given X x5 18:09 Patient left the ED. sv Signatures: Cherry Cisse, Bruce Cazares RN, MD MD cha Martinez, Amelia as Attema, Lee RN RN la1
--- NOTE | 2019-06-23 17:57 | EDPHYS ---
Physician Documentation [facility] Name: Jennifer Salazar Age: 44 yrs Sex: Female : 1975 Arrival Date: 06/23/2019 Time: 17:21 Bed 16 Private MD: ED Physician Bruce Jackson HPI: 06/23 17:49 This 44 yrs old Female presents to ER via Ambulatory with complaints of soy Insect Bite, Abdominal Pain, Diarrhea. 17:49 The patient presents to the emergency department with nausea, diarrhea. Onset: The soy symptoms/episode began/occurred 2 day(s) ago. Possible causes: unknown. The symptoms are aggravated by nothing. The symptoms are alleviated by nothing. Associated signs and symptoms: The patient has no apparent associated signs or symptoms. Severity of symptoms: At their worst the symptoms were mild moderate in the emergency department the symptoms are unchanged. Historical: - Allergies: 17:29 No Known Allergies; la1 - PMHx: 17:29 Anxiety; Bipolar disorder; Depression; Schizophrenia; la1 - PSHx: 17:29 Appendectomy; Cholecystectomy; Tubal ligation; la1 - Immunization history:: Adult Immunizations up to date. - Social history:: Smoking status: Patient uses tobacco products, smokes two packs cigarettes per day. - Ebola Screening: : No symptoms or risks identified at this time. ROS: 17:50 Constitutional: Negative for fever, chills, and weight loss, Eyes: Negative for injury, soy pain, redness, and discharge, ENT: Negative for injury, pain, and discharge, Neck: Negative for injury, pain, and swelling, Cardiovascular: Negative for chest pain, palpitations, and edema, Respiratory: Negative for shortness of breath, cough, wheezing, and pleuritic chest pain, Back: Negative for injury and pain, : Negative for injury, bleeding, discharge, and swelling, MS/Extremity: Negative for injury and deformity, Neuro: Negative for headache, weakness, numbness, tingling, and seizure, Psych: Negative for depression, anxiety, suicide ideation, homicidal ideation, and hallucinations, Allergy/Immunology: Negative for hives, rash, and allergies, Endocrine: Negative for neck swelling, polydipsia, polyuria, polyphagia, and marked weight changes, Hematologic/Lymphatic: Negative for swollen nodes, abnormal bleeding, and unusual bruising. 17:50 Respiratory: Positive for cough, with no reported sputum. 17:50 Abdomen/GI: Positive for nausea, diarrhea. 17:50 Skin: Positive for erythema, lesions. Exam: 17:50 Constitutional: This is a well developed, well nourished patient who is awake, alert, soy and in no acute distress. Head/Face: Normocephalic, atraumatic. Eyes: Pupils equal round and reactive to light, extra-ocular motions intact. Lids and lashes normal. Conjunctiva and sclera are non-icteric and not injected. Cornea within normal limits. Periorbital areas with no swelling, redness, or edema. ENT: Nares patent. No nasal discharge, no septal abnormalities noted. Tympanic membranes are normal and external auditory canals are clear. Oropharynx with no redness, swelling, or masses, exudates, or evidence of obstruction, uvula midline. Mucous membranes moist. Neck: Trachea midline, no thyromegaly or masses palpated, and no cervical lymphadenopathy. Supple, full range of motion without nuchal rigidity, or vertebral point tenderness. No Meningismus. Chest/axilla: Normal chest wall appearance and motion. Nontender with no deformity. No lesions are appreciated. Cardiovascular: Regular rate and rhythm with a normal S1 and S2. No gallops, murmurs, or rubs. Normal PMI, no JVD. No pulse deficits. Respiratory: Lungs have equal breath sounds bilaterally, clear to auscultation and percussion. No rales, rhonchi or wheezes noted. No increased work of breathing, no retractions or nasal flaring. Abdomen/GI: Soft, non-tender, with normal bowel sounds. No distension or tympany. No guarding or rebound. No evidence of tenderness throughout. Back: No spinal tenderness. No costovertebral tenderness. Full range of motion. MS/ Extremity: Pulses equal, no cyanosis. Neurovascular intact. Full, normal range of motion. Neuro: Awake and alert, GCS 15, oriented to person, place, time, and situation. Cranial nerves II-XII grossly intact. Motor strength 5/5 in all extremities. Sensory grossly intact. Cerebellar exam normal. Normal gait. 17:50 Skin: lesion(s), noted, and can be described as raised, located on the back, chest, right arm and left arm. 17:50 Psych: Behavior/mood is anxious, Affect is animated, Oriented to person, place, time, Patient has no thoughts/intents to harm self or others. Judgement / Insight is normal. Memory is normal. Delusions/hallucinations are not present. Vital Signs: 17:30 BP 127 / 95; Pulse 85; Resp 16; Temp 97.8; Pulse Ox 98% on R/A; Weight 74.84 kg; Height la1 5 ft. 6 in. (167.64 cm); 17:30 Body Mass Index 26.63 (74.84 kg, 167.64 cm) la1 MDM: 17:35 Patient medically screened. [facility] 17:52 Data reviewed: vital signs, nurses notes. soy Administered Medications: 18:03 Drug: Benadryl 50 mg Route: PO; sv 18:04 Follow up: Response: Medication administered at discharge. sv 18:03 Drug: Pepcid 20 mg Route: PO; sv 18:04 Follow up: Response: Medication administered at discharge. sv 18:03 Drug: Ativan 1 mg Route: PO; sv 18:04 Follow up: Response: Medication administered at discharge. sv 18:03 Drug: Doxycycline 100 mg Route: PO; sv 18:03 Follow up: Response: Medication administered at discharge. sv Disposition: 06/23/19 17:56 Discharged to Home. Impression: Insect bite (nonvenomous) of left upper arm, Insect bite (nonvenomous) of right upper arm, Insect bite (nonvenomous) of back wall of thorax, Bipolar disorder, Anxiety disorder, unspecified. - Condition is Stable. - Discharge Instructions: Panic Attacks, Insect Bite, [id number]-Eizg, Insect Bite, Bipolar Disorder, Panic Attacks, [id number]-mg-Ojhj. - Prescriptions for Benadryl 25 mg Oral Capsule - take 1 capsule by ORAL route every 6 hours As needed; 30 tablet. Pepcid 20 mg Oral Tablet - take 1 tablet by ORAL route every 12 hours for 10 days; 20 tablet. Xanax 0.5 mg Oral Tablet - take 1 tablet by ORAL route every 8 hours As needed; 20 tablet. Zofran 4 mg Oral Tablet - take 1 tablet by ORAL route every 12 hours As needed; 14 tablet. Doxycycline Hyclate 100 mg Oral Tablet - take 1 tablet by ORAL route every 12 hours; 14 tablet. - Medication Reconciliation Form, Thank You Letter, Antibiotic Education, Prescription Opioid Use form. - Follow up: Private Physician; When: 2 - 3 days; Reason: Recheck today's complaints, Continuance of care, Re-evaluation by your physician. - Problem is new. - Symptoms have improved. Signatures: Cherry Cisse, RN RN Bruce Pretty MD MD cha Attema, Lee RN RN la1 Corrections: (The following items were deleted from the chart) 18:09 17:56 06/23/2019 17:56 Discharged to Home. Impression: Insect bite (nonvenomous) of sv left upper arm; Insect bite (nonvenomous) of right upper arm; Insect bite (nonvenomous) of back wall of thorax; Bipolar disorder; Anxiety disorder, unspecified. Condition is Stable. Discharge Instructions: Panic Attacks, Insect Bite, Vsok-sc-Ilzp, Insect Bite, Bipolar Disorder, Panic Attacks, Rpra-it-Ihbq. Prescriptions for Benadryl 25 mg Oral Capsule - take 1 capsule by ORAL route every 6 hours As needed; 30 tablet, Pepcid 20 mg Oral Tablet - take 1 tablet by ORAL route every 12 hours for 10 days; 20 tablet, Xanax 0.5 mg Oral Tablet - take 1 tablet by ORAL route every 8 hours As needed; 20 tablet, Zofran 4 mg Oral Tablet - take 1 tablet by ORAL route every 12 hours As needed; 14 tablet, Doxycycline Hyclate 100 mg Oral Tablet - take 1 tablet by ORAL route every 12 hours; 14 tablet. and Forms are Medication Reconciliation Form, Thank You Letter, Antibiotic Education, Prescription Opioid Use. Follow up: Private Physician; When: 2 - 3 days; Reason: Recheck today's complaints, Continuance of care, Re-evaluation by your physician. Problem is new. Symptoms have improved. soy
[2019-06-23 20:57] VITALS: BP 127/95; TEMP 97.8; O2SAT 98
== END 2019-06-23 18:09 | disposition home or self-care (01) ==
LOC: ER 17:20
DX: S40.862A Insect bite (nonvenomous) of left upper arm, initial encounter (principal); S40.861A Insect bite (nonvenomous) of right upper arm, initial encounter; S20.469A Insect bite (nonvenomous) of unspecified back wall of thorax, initial encounter; F41.9 Anxiety disorder, unspecified; F31.9 Bipolar disorder, unspecified; F32.9 Major depressive disorder, single episode, unspecified; F20.9 Schizophrenia, unspecified; F17.210 Nicotine dependence, cigarettes, uncomplicated
CPT/HCPCS: 99283

== ENCOUNTER 2019-06-30 12:16 | Emergency (ER) | payer OTHER ==
--- OUTSIDE RECORDS SUMMARY | 2019-06-30 12:18 | XMS REPORT ---
:1975 Author Organization eClinicalWorks Care Team Providers Name Role Phone [facility] Provider Role Unavailable Allergies No Known Allergies [...] Status Dosage System Date Date Acetaminophen- NDC 53949209398 300-30 MG Orally Active not Codeine #3 defined Results No Known Results Summary Purpose eClinicalWorks Submission
--- OUTSIDE RECORDS SUMMARY | 2019-06-30 12:18 | XMS REPORT ---
[...] Once a day with food Depakote NDC 65843175325 500 MG Orally Active as directed Once a day Trazodone HCl NDC 74868289934 100 MG Orally Active 1 tablet at Once a day bedtime Results No Known Results Summary Purpose eClinicalWorks Submission
--- OUTSIDE RECORDS SUMMARY | 2019-06-30 12:19 | XMS REPORT ---
[...] End Status Dosage System Date Date Depakote [facility] 72519896414 500 MG Orally Active not defined Lorazepam ND 62009837981 1 MG Orally Once Active 1 tablet at a day bedtime as needed Zoloft ND 38255105087 100 mg Oral Active 2 tab Klonopin ND 47202609358 0.5 MG Orally Active 1 tablet at Once a day bedtime Tramadol HCl ND 43478601479 50 MG Orally 1 May 07May Active as directed PO 6 HRS PRN 2018, PAIN 2019 Acetaminophen- ND 38161010003 300-30 MG Orally Active not defined Codeine #3 Effexor NDC 0 100 MG Orally Active 1 tablet Once a day with food Tylenol # 3 NDC 0 300/30mg PO April 02, Active one tab every 6 hrs 2019 Results No Known Results Summary Purpose eClinicalWorks Submission
--- OUTSIDE RECORDS SUMMARY | 2019-06-30 12:19 | XMS REPORT ---
[...] tab every 6 hrs 2018 Zoloft ND 68620983214 100 mg Oral Active 2 tab Depakote ND 20041026878 500 MG Orally Active not defined Effexor NDC 0 100 MG Orally Active 1 tablet Once a day with food Lorazepam NDC 57782552799 1 MG Orally Once Active 1 tablet a day at bedtime as needed Klonopin ND 26693618263 0.5 MG Orally Active 1 tablet Once a day at bedtime Acetaminophen- NDC 20940535993 300-30 MG Orally Active not Codeine #3 defined Tylenol # 3 NDC 0 300/30mg 1 PO Q May 07May Active one tab 6 hrs prn pain 2018 Results No Known Results Summary Purpose eClinicalWorks Submission
--- OUTSIDE RECORDS SUMMARY | 2019-06-30 12:19 | XMS REPORT ---
[...] End Status Dosage System Date Date Lorazepam [facility] 15965776783 1 MG Orally Once Active 1 tablet a day at bedtime as needed Acetaminophen- NDC 28942454671 300-30 MG Orally Active not Codeine #3 defined Effexor NDC 0 100 MG Orally Active 1 tablet Once a day with food Klonopin ND 18584377156 0.5 MG Orally Active 1 tablet Once a day at bedtime Zoloft ND 85158002001 100 mg Oral Active 2 tab Tylenol # 3 NDC 0 300/30mg PO April 02, Active one tab every 6 hrs 2018 Depakote ND 01506438264 500 MG Orally Active not defined Results No Known Results Summary Purpose eClinicalWorks Submission
--- OUTSIDE RECORDS SUMMARY | 2019-06-30 12:19 | XMS REPORT ---
[...] End Status Dosage System Date Date Klonopin [facility] 13355481817 0.5 MG Orally Active 1 tablet Once a day at bedtime Lorazepam [facility] 29235784381 1 MG Orally Once Active 1 tablet a day at bedtime as needed Depakote [facility] 61175774291 500 MG Orally Active not defined Acetaminophen- ND 33387776577 300-30 MG Orally Active not Codeine #3 defined Tylenol # 3 NDC 0 300/30mg PO April 02, Active one tab every 6 hrs 2018 Zoloft ND 35856551627 100 mg Oral Active 2 tab Effexor NDC 0 100 MG Orally Active 1 tablet Once a day with food Results No Known Results Summary Purpose eClinicalWorks Submission
[2019-06-30] MEDS ORDERED: LORAZEPAM 1 MG TABLET ONE (13:10)
[2019-06-30] MEDS ORDERED: hydrOXYzine HCl 25 MG TAB ONE (13:10)
--- NOTE | 2019-06-30 13:14 | EDPHYS ---
Physician Documentation [facility] Name: Jennifer Salazar Age: 44 yrs Sex: Female : 1975 Arrival Date: 06/30/2019 Time: 12:19 Bed Treatment Private MD: ED Physician Tray Cheng HPI: 06/30 13:22 This 44 yrs old Female presents to ER via Ambulatory with complaints of Skin snw Sore(s). 13:22 Onset: The symptoms/episode began/occurred at an unknown time. Associated signs and snw symptoms: Pertinent positives: anxiety, itching, in stool, in umbilicus per report. It is unknown whether or not the patient has had similar symptoms in the past. It is unknown whether or not the patient has recently seen a physician. wants Stool sample. 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 - Social history:: Smoking status: unknown. - Ebola Screening: : Patient negative for fever greater than or equal to 101.5 degrees Fahrenheit, and additional compatible Ebola Virus Disease symptoms Patient denies exposure to infectious person Patient denies travel to an Ebola-affected area in the 21 days before illness onset No symptoms or risks identified at this time. ROS: 13:20 Constitutional: Negative for fever, chills, and weight loss, Eyes: Negative for injury, snw pain, redness, and discharge, ENT: Negative for injury, pain, and discharge, Neck: Negative for injury, pain, and swelling, Cardiovascular: Negative for chest pain, palpitations, and edema, Respiratory: Negative for shortness of breath, cough, wheezing, and pleuritic chest pain, Abdomen/GI: Negative for abdominal pain, nausea, vomiting, diarrhea, and constipation, "things are infesting me from the inside" Back: Negative for injury and pain, : Negative for injury, bleeding, discharge, and swelling, MS/Extremity: Negative for injury and deformity. 13:20 Neuro: Negative for headache, weakness, numbness, tingling, and seizure. 13:20 Skin: Positive for rash, itching. Exam: 13:14 Head/Face: Normocephalic, atraumatic. Eyes: Pupils equal round and reactive to light, snw extra-ocular motions intact. Lids and lashes normal. Conjunctiva and sclera are non-icteric and not injected. Cornea within normal limits. Periorbital areas with no swelling, redness, or edema. ENT: Nares patent. No nasal discharge, no septal abnormalities noted. Tympanic membranes are normal and external auditory canals are clear. Oropharynx with no redness, swelling, or masses, exudates, or evidence of obstruction, uvula midline. Mucous membranes moist. Neck: Trachea midline, no thyromegaly or masses palpated, and no cervical lymphadenopathy. Supple, full range of motion without nuchal rigidity, or vertebral point tenderness. No Meningismus. Chest/axilla: Normal chest wall appearance and motion. Nontender with no deformity. No lesions are appreciated. Cardiovascular: Regular rate and rhythm with a normal S1 and S2. No gallops, murmurs, or rubs. Normal PMI, no JVD. No pulse deficits. Respiratory: Lungs have equal breath sounds bilaterally, clear to auscultation and percussion. No rales, rhonchi or wheezes noted. No increased work of breathing, no retractions or nasal flaring. Abdomen/GI: Soft, non-tender, with normal bowel sounds. No distension or tympany. No guarding or rebound. No evidence of tenderness throughout. Back: No spinal tenderness. No costovertebral tenderness. Full range of motion. MS/ Extremity: Pulses equal, no cyanosis. Neurovascular intact. Full, normal range of motion. Neuro: Awake and alert, GCS 15, oriented to person, place, time, and situation. Cranial nerves II-XII grossly intact. Motor strength 5/5 in all extremities. Sensory grossly intact. Cerebellar exam normal. Normal gait. 13:14 Constitutional: The patient appears alert, awake, anxious, restless. 13:14 Skin: Appearance: normal except for affected area, lesion(s), noted, and can be described as erythematous, excoriated. 13:14 Psych: Behavior/mood is anxious, inappropriate for age, Affect is animated, Oriented to person, place, time. 13:14 Special observations: clawing at breasts, requests stool evaluation as "things are infesting my body". Vital Signs: 13:16 BP 134 / 74; Pulse 84; Resp 16; Temp 98.2; Pulse Ox 100% on R/A; Pain 0/10; iw MDM: 12:58 Patient medically screened. snw 13:17 Data reviewed: vital signs, nurses notes. Data interpreted: Pulse oximetry: is not snw applicable for this patient encounter. on. Counseling: I had a detailed discussion with the patient and/or guardian regarding: the historical points, exam findings, and any diagnostic results supporting the discharge/admit diagnosis, the presence of at least one elevated blood pressure reading (>120/80) during this emergency department visit, the need for outpatient follow up, to return to the emergency department if symptoms worsen or persist or if there are any questions or concerns that arise at home. Special discussion: Based on the history and exam findings, there is no indication for further emergent testing or inpatient evaluation. I discussed with the patient/guardian the need to see the paster hat lining for further evaluation of the symptoms. I discussed with the patient/guardian the need to see the primary care provider for further evaluation of the symptoms. I discussed with the patient/guardian the need to see the psychiatrist for further evaluation of the symptoms. 13:23 ED course: + bedbugs. snw Administered Medications: 13:13 Drug: Ativan 2 mg Route: PO; iw 13:30 Follow up: Response: No adverse reaction iw 13:13 Drug: Atarax 25 mg Route: PO; iw 13:30 Follow up: Response: No adverse reaction iw Disposition: 15:12 Co-signature as Attending Physician, Tray Cheng MD. rn Disposition: 06/30/19 13:13 Discharged to Home. 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 - Condition is Stable. - Discharge Instructions: Panic Attacks, Pruritus, Scabies, Adult. - Prescriptions for Elimite 5 % Topical Cream - apply 1 application by TOPICAL route one time Wash after 12 hours.; 30 gram. Vistaril 25 mg Oral capsule - take 1 capsule by ORAL route 3 times per day; 21 capsule. - Medication Reconciliation Form, Thank You Letter, Antibiotic Education, Prescription Opioid Use form. - Follow up: Private Physician; When: 1 - 2 days; Reason: Recheck today's complaints, Continuance of care, Re-evaluation by your physician. Follow up: Emergency Department; When: As needed; Reason: Worsening of condition. - Notes: +bedbugs Signatures: Yarely Thi, WAGE ANALYST-C WAGE ANALYST-Csnw Marian Dawson RN RN iw Tray Cheng MD MD paid internship: (The following items were deleted from the chart) 13:27 13:13 06/30/2019 13:13 Discharged to Home. Impression: Anxiety disorder due to known iw physiological condition - psychosis; Pruritus. Condition is Stable. Discharge Instructions: Panic Attacks, Pruritus, Scabies, Adult. Prescriptions for Elimite 5 % Topical Cream - apply 1 application by TOPICAL route one time Wash after 12 hours.; 30 gram, Vistaril 25 mg Oral capsule - take 1 capsule by ORAL route 3 times per day; 21 capsule. and Forms are Medication Reconciliation Form, Thank You Letter, Antibiotic Education, Prescription Opioid Use. Follow up: Private Physician; When: 1 - 2 days; Reason: Recheck today's complaints, Continuance of care, Re-evaluation by your physician. Follow up: Emergency Department; When: As needed; Reason: Worsening of condition. snw
--- NOTE | 2019-06-30 13:14 | ER ---
Nurse's Notes [facility] Name: Jennifer Salazar Age: 44 yrs Sex: Female : 1975 Arrival Date: 06/30/2019 Time: 12:19 Bed Treatment Private MD: Diagnosis: Anxiety disorder due to known physiological condition-psychosis;Pruritus Presentation: 06/30 12:52 Presenting complaint: Patient states: thinks she is infested with bugs, thinks there is iw a bug crawling in her belly button, also thinks she has parasites in her stool. Transition of care: patient was not received from another setting of care. Onset of symptoms was June 30, 2019. Risk Assessment: Do you want to hurt yourself or someone else? Patient reports no desire to harm self or others. Initial Sepsis Screen: Does the patient meet any 2 criteria? No. Patient's initial sepsis screen is negative. Does the patient have a suspected source of infection? No. Patient's initial sepsis screen is negative. Care prior to arrival: None. 12:52 Method Of Arrival: Ambulatory iw 12:52 Acuity: BECKY 4 iw Triage Assessment: 13:13 General: Appears in no apparent distress. Behavior is anxious. 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 - Social history:: Smoking status: unknown. - Ebola Screening: : Patient negative for fever greater than or equal to 101.5 degrees Fahrenheit, and additional compatible Ebola Virus Disease symptoms Patient denies exposure to infectious person Patient denies travel to an Ebola-affected area in the 21 days before illness onset No symptoms or risks identified at this time. Screenin:26 Abuse screen: Denies threats or abuse. Denies injuries from another. Nutritional iw screening: No deficits noted. Tuberculosis screening: No symptoms or risk factors identified. Fall Risk None identified. Assessment: 13:30 General: Appears in no apparent distress. Behavior is anxious. Pain: Denies pain. iw Neuro: Level of Consciousness is awake, alert, obeys commands, Oriented to person, place, time, situation, Moves all extremities. Full function. Cardiovascular: Patient's skin is warm and dry. Respiratory: Respiratory effort is even, unlabored. GI: No signs and/or symptoms were reported involving the gastrointestinal system. Derm: Skin multiple healed over sores around feet and hands. Musculoskeletal: Range of motion: intact in all extremities. Vital Signs: 13:16 BP 134 / 74; Pulse 84; Resp 16; Temp 98.2; Pulse Ox 100% on R/A; Pain 0/10; iw ED Course: 12:19 Patient arrived in ED. mr 12:54 Triage completed. iw 12:57 Thi Pritchett FNP-C is PHCP. snw 12:57 Tray Cheng MD is Attending Physician. snw 13:00 Arm band placed on. iw 13:00 Patient has correct armband on for positive identification. iw 13:04 Marian Dawson, RN is Primary Nurse. iw 13:10 No provider procedures requiring assistance completed. Patient did not have IV access iw during this emergency room visit. Administered Medications: 13:13 Drug: Ativan 2 mg Route: PO; iw 13:30 Follow up: Response: No adverse reaction iw 13:13 Drug: Atarax 25 mg Route: PO; iw 13:30 Follow up: Response: No adverse reaction iw Outcome: 13:13 Discharge ordered by MD. snw 13:26 Discharged to home ambulatory, with family. iw 13:26 Condition: good 13:26 Discharge instructions given to patient, family, Instructed on discharge instructions, follow up and referral plans. medication usage, Demonstrated understanding of instructions, follow-up care, medications, Prescriptions given X 2. 13:27 Patient left the ED. iw Signatures: Thi Pritchett FNP-C FNP-Dana Chiquita Martínez Marian Dawson, RN RN iw
[2019-06-30 13:32] VITALS: BP 134/74; TEMP 98.2; O2SAT 100
== END 2019-06-30 13:27 | disposition home or self-care (01) ==
LOC: ER 12:16
DX: L29.9 Pruritus, unspecified (principal); F06.4 Anxiety disorder due to known physiological condition
CPT/HCPCS: 99283

== ENCOUNTER 2019-07-04 17:32 | Emergency (ER) | payer OTHER ==
--- OUTSIDE RECORDS SUMMARY | 2019-07-04 17:34 | XMS REPORT ---
[...] End Status Dosage System Date Date Lorazepam [facility] 98274703104 1 MG Orally Once Active 1 tablet a day at bedtime as needed Acetaminophen- NDC 66487501111 300-30 MG Orally Active not Codeine #3 defined Effexor NDC 0 100 MG Orally Active 1 tablet Once a day with food Klonopin ND 19198838846 0.5 MG Orally Active 1 tablet Once a day at bedtime Zoloft ND 46293845234 100 mg Oral Active 2 tab Tylenol # 3 NDC 0 300/30mg PO April 02, Active one tab every 6 hrs 2018 Depakote ND 24310480782 500 MG Orally Active not defined Results No Known Results Summary Purpose eClinicalWorks Submission
--- OUTSIDE RECORDS SUMMARY | 2019-07-04 17:34 | XMS REPORT ---
:1975 Author Organization eClinicalWorks Care Team Providers Name Role Phone [facility] Provider Role Unavailable Allergies No Known [...] Status Dosage System Date Date Acetaminophen- NDC 62225221895 300-30 MG Orally Active not Codeine #3 defined Results No Known Results Summary Purpose eClinicalWorks Submission
--- OUTSIDE RECORDS SUMMARY | 2019-07-04 17:34 | XMS REPORT ---
[...] End Status Dosage System Date Date Depakote [facility] 73839011002 500 MG Orally Active not defined Lorazepam ND 34251113196 1 MG Orally Once Active 1 tablet at a day bedtime as needed Zoloft ND 85898140724 100 mg Oral Active 2 tab Klonopin ND 35476848674 0.5 MG Orally Active 1 tablet at Once a day bedtime Tramadol HCl ND 70559131678 50 MG Orally 1 May 07May Active as directed PO 6 HRS PRN 2018, PAIN 2019 Acetaminophen- ND 01329468414 300-30 MG Orally Active not defined Codeine #3 Effexor NDC 0 100 MG Orally Active 1 tablet Once a day with food Tylenol # 3 NDC 0 300/30mg PO April 02, Active one tab every 6 hrs 2019 Results No Known Results Summary Purpose eClinicalWorks Submission
--- OUTSIDE RECORDS SUMMARY | 2019-07-04 17:34 | XMS REPORT ---
[...] Once a day with food Depakote NDC 57181682946 500 MG Orally Active as directed Once a day Trazodone HCl NDC 55964987311 100 MG Orally Active 1 tablet at Once a day bedtime Results No Known Results Summary Purpose eClinicalWorks Submission
--- OUTSIDE RECORDS SUMMARY | 2019-07-04 17:35 | XMS REPORT ---
[...] tab every 6 hrs 2018 Zoloft ND 35982118236 100 mg Oral Active 2 tab Depakote ND 85837978012 500 MG Orally Active not defined Effexor NDC 0 100 MG Orally Active 1 tablet Once a day with food Lorazepam NDC 05346311537 1 MG Orally Once Active 1 tablet a day at bedtime as needed Klonopin ND 06417987328 0.5 MG Orally Active 1 tablet Once a day at bedtime Acetaminophen- NDC 20778613332 300-30 MG Orally Active not Codeine #3 defined Tylenol # 3 NDC 0 300/30mg 1 PO Q May 07May Active one tab 6 hrs prn pain 2018 Results No Known Results Summary Purpose eClinicalWorks Submission
--- OUTSIDE RECORDS SUMMARY | 2019-07-04 17:35 | XMS REPORT ---
[...] Status Dosage System Date Date Klonopin [facility] 41479529775 0.5 MG Orally Active 1 tablet Once a day at bedtime Lorazepam [facility] 39364936266 1 MG Orally Once Active 1 tablet a day at bedtime as needed Depakote [facility] 68626397327 500 MG Orally Active not defined Acetaminophen- ND 45074271499 300-30 MG Orally Active not Codeine #3 defined Tylenol # 3 NDC 0 300/30mg PO April 02, Active one tab every 6 hrs 2018 Zoloft ND 47707959398 100 mg Oral Active 2 tab Effexor NDC 0 100 MG Orally Active 1 tablet Once a day with food Results No Known Results Summary Purpose eClinicalWorks Submission
[2019-07-04] MEDS ORDERED: NA CHLORIDE 0.9% 1,000 ML ONE (18:28)
[2019-07-04 18:36] LABS: Absolute Lymphocytes (CBC) 2.3 K/uL (0.7-4.9); Basophils % 0.7 % (0-1.3); Hematocrit 35.4 % (36.0-45.0); Lymphocytes % 28.3 % (15.3-44.8); RBC Red Blood Cell Count 5.27 M/uL (3.86-4.86)
[2019-07-04 18:50] LABS: Albumin 4.2 g/dL (3.4-5.0); Bilirubin Direct 0.2 mg/dL (0-0.2); Bilirubin Total 0.6 mg/dL (0.2-1.0); Potassium 3.5 mmol/L (3.5-5.1); Protein, Total 8.1 g/dL (6.4-8.2)
[2019-07-04 19:25] LABS: Anisocytosis 1+; Blood Morphology Comment NOTED (NOT SEEN); Platelet Estimate ADEQ; Poikilocytosis 1+; Urine White Blood Cell Casts OK
--- NOTE | 2019-07-04 19:43 | RAD REPORT ---
EXAM DESCRIPTION: CT - Abdomen Pelvis W Contrast - 07/04/2019 7:30 pm CLINICAL HISTORY: Diarrhea;Abd pain, patient gives history of prior appendectomy and cholecystectomy COMPARISON: CT study July 2018 TECHNIQUE: Biphasic, helical CT imaging of the abdomen and pelvis was performed following 100 ml non -ionic IV contrast. No oral contrast. All CT scans are performed using dose optimization technique as appropriate and may include automated exposure control or mA/KV adjustment according to patient size. FINDINGS: No suspicious findings in the lung bases. Liver is borderline fatty infiltrated. No focal liver abnormality seen. Spleen and pancreas show no a cute findings. Cholecystectomy clips are present with no biliary tree dilatation. Symmetric renal function is seen with no hydronephrosis or suspicious renal mass. No pyelonephritis o r acute parenchymal process. No bladder abnormalities. No adrenal abnormalities. No dilated bowel loops or bowel wall thickening. Appendectomy clips are present. No free air, free fl uid or inflammatory stranding. No hernia, mass or bulky lymphadenopathy. Uterus and right ovary show no suspicious findings. A 3 centimeter dermoid associated with the left ovary has not changed since comparison. No suspicious bony findings. IMPRESSION: Contrast enhanced CT abdomen and pelvis showing no acute finding. No significant change from prior imaging.
[2019-07-04 20:12] LABS: Barbiturates NEGATIVE (NEGATIVE); Benzodiazepines NEGATIVE (NEGATIVE); Cocaine POSITIVE (NEGATIVE); METHAMPHETAM NEGATIVE (NEGATIVE); Methadone NEGATIVE (NEGATIVE); Opiates NEGATIVE (NEGATIVE); Phencyclidine NEGATIVE (NEGATIVE); THC Cannibis NEGATIVE (NEGATIVE)
[2019-07-04] MEDS ORDERED: PROMETHAZINE 25 MG/ML VIAL ONE (20:21)
[2019-07-04 20:26] LABS: Urine Blood TRACE (NEG); Urine Glucose NEGATIVE (NEG); Urine Protein NEGATIVE (NEG); Urine Specific Gravity <1.005 (1.005-1.030)
--- NOTE | 2019-07-04 20:29 | ER ---
Nurse's Notes [facility] Name: Jennifer Salazar Age: 44 yrs Sex: Female : 1975 Arrival Date: 07/04/2019 Time: 17:34 Bed 25 Private MD: Diagnosis: Unspecified abdominal pain;Diarrhea, unspecified;Cocaine abuse Presentation: 07/04 17:46 Presenting complaint: Patient states: Diarrhea and abdominal pain x 3 days, hx of ph C-diff, currently taking antibiotics, states, " I've been having so much diarhea there's blood now." Reports bright red blood in stool, denies N/V. Transition of care: patient was not received from another setting of care. Onset of symptoms was July 04, 2019. Risk Assessment: Do you want to hurt yourself or someone else? Patient reports no desire to harm self or others. Care prior to arrival: None. 17:46 Method Of Arrival: Ambulatory ph 17:46 Acuity: BECKY 3 ph 19:09 Initial Sepsis Screen: Does the patient meet any 2 criteria? No. Patient's initial mg2 sepsis screen is negative. Does the patient have a suspected source of infection? No. Patient's initial sepsis screen is negative. 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 - Social history:: Smoking status: unknown. - Ebola Screening: : No symptoms or risks identified at this time. Screenin:08 Abuse screen: Denies threats or abuse. Denies injuries from another. Nutritional mg2 screening: No deficits noted. Tuberculosis screening: No symptoms or risk factors identified. Fall Risk IV access (20 points). Assessment: 19:06 General: Appears in no apparent distress. comfortable, Behavior is calm, cooperative. mg2 Pain: Complains of pain in abdomen Pain does not radiate. Pain currently is 5 out of 10 on a pain scale. Quality of pain is described as aching, Pain began gradually, Is intermittent. Neuro: Level of Consciousness is awake, alert, obeys commands, Oriented to person, place, time, situation. Cardiovascular: Capillary refill < 3 seconds Patient's skin is warm and dry. Respiratory: Airway is patent Respiratory effort is even, unlabored, Respiratory pattern is regular, symmetrical. GI: Bowel sounds present X 4 quads. Abd is soft and non tender Reports lower abdominal pain, upper abdominal pain, diarrhea, bloody stool, nausea. EENT: No signs and/or symptoms were reported regarding the EENT system. Derm: Skin is intact, is healthy with good turgor, Skin is pink, warm \\T\\ dry. normal. Musculoskeletal: Circulation, motion, and sensation intact. Capillary refill < 3 seconds. Vital Signs: 17:48 BP 143 / 103; Pulse 89; Resp 18; Temp 98.7; Pulse Ox 100% on R/A; ph 19:10 BP 117 / 82; Pulse 82; Resp 18; Pulse Ox 100% on R/A; mg2 21:05 BP 117 / 82; Pulse 81; Resp 18; Temp 98; Pulse Ox 100% on R/A; Pain 0/10; mg2 ED Course: 17:34 Patient arrived in ED. es 17:48 Triage completed. ph 18:14 Jack Ghotra, ALEKSEY is Primary Nurse. mg2 18:17 Clark Gómez NP is PHCP. pm1 18:17 Bruce Jackson MD is Attending Physician. pm1 18:36 Radiology exam delayed due to lab results not completed at this time. (BUN/Creatinine) kw1 test not completed at this time. 19:08 Patient has correct armband on for positive identification. Pulse ox on. NIBP on. Door mg2 closed. Warm blanket given. 19:08 No provider procedures requiring assistance completed. Inserted saline lock: 20 gauge mg2 in left forearm, using aseptic technique. Blood collected. 19:09 Arm band placed on. mg2 19:30 CT completed. Patient tolerated procedure well. Patient moved back from CT. mw3 19:38 CT Abd/Pelvis - IV Contrast Only In Process Unspecified. EDMS 19:45 Urine collected: clean catch specimen, clear, connor colored. jp3 19:46 UDS Sent. jp3 19:47 Legal drug screen obtained per protocol. jp3 21:04 IV discontinued, intact, bleeding controlled, No redness/swelling at site. Pressure mg2 dressing applied. Administered Medications: 18:37 Drug: NS 0.9% 1000 ml Route: IV; Rate: 1000 ml; Site: right forearm; mg2 20:31 Follow up: Response: No adverse reaction; IV Status: Completed infusion; IV Intake: mg2 1000ml 20:32 Drug: Phenergan 12.5 mg Route: IVP; Site: right forearm; mg2 20:42 Follow up: Response: No adverse reaction mg2 Intake: 20:31 IV: 1000ml; Total: 1000ml. mg2 Outcome: 20:28 Discharge ordered by MD. pm1 21:06 Discharged to home ambulatory, with family. mg2 21:06 Condition: stable 21:06 Discharge instructions given to patient, family, Instructed on discharge instructions, follow up and referral plans. medication usage, Demonstrated understanding of instructions, follow-up care, medications, Prescriptions given X 2. 21:06 Patient left the ED. mg2 Signatures: Dispatcher [employer] Renee Morales Patricia, RN RN ph Clark Gómez, ADOLPH INVESTIGATIVE ANALYST pm1 Sahara Singh kw1 Jack Ghotra RN RN mg2 Tierney Tyler mw3 Ramon Willoughby jp3
--- NOTE | 2019-07-04 20:30 | EDPHYS ---
Physician Documentation [facility] Name: Jennifer Salazar Age: 44 yrs Sex: Female : 1975 Arrival Date: 07/04/2019 Time: 17:34 Bed 25 Private MD: ED Physician Bruce Jackson HPI: 07/04 19:05 This 44 yrs old Female presents to ER via Ambulatory with complaints of pm1 Abdominal Pain, Diarrhea, Blood in stool. 19:05 The patient presents with abdominal pain in the lower abdomen. pm1 19:05 Onset: The symptoms/episode began/occurred 3 day(s) ago. The symptoms do not radiate. pm1 Associated signs and symptoms: Pertinent positives: diarrhea, nausea, Pertinent negatives: chest pain, shortness of breath, vomiting. The symptoms are described as crampy. Modifying factors: The symptoms are alleviated by nothing, the symptoms are aggravated by nothing. Severity of pain: in the emergency department the pain is actually worse. The patient has been recently seen at the [facility] Emergency Department, this week, for unrelated complaints, Rash, scabies. 19:05 Currently taking doxycycline from ER visit about 2 weeks ago. 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 - Social history:: Smoking status: unknown. - Ebola Screening: : No symptoms or risks identified at this time. ROS: 19:05 Constitutional: Negative for fever, chills, and weight loss, Eyes: Negative for injury, pm1 pain, redness, and discharge, ENT: Negative for injury, pain, and discharge, Neck: Negative for injury, pain, and swelling, Cardiovascular: Negative for chest pain, palpitations, and edema, Respiratory: Negative for shortness of breath, cough, wheezing, and pleuritic chest pain. 19:05 Back: Negative for injury and pain, : Negative for injury, bleeding, discharge, and swelling, MS/Extremity: Negative for injury and deformity, Skin: Negative for injury, rash, and discoloration, Neuro: Negative for headache, weakness, numbness, tingling, and seizure. 19:05 Abdomen/GI: Positive for abdominal pain, diarrhea, Negative for nausea and vomiting, constipation. Exam: 19:05 Constitutional: This is a well developed, well nourished patient who is awake, alert, pm1 and in no acute distress. Head/Face: Normocephalic, atraumatic. Neck: Trachea midline, no thyromegaly or masses palpated, and no cervical lymphadenopathy. Supple, full range of motion without nuchal rigidity, or vertebral point tenderness. No Meningismus. Chest/axilla: Normal chest wall appearance and motion. Nontender with no deformity. No lesions are appreciated. Cardiovascular: Regular rate and rhythm with a normal S1 and S2. No gallops, murmurs, or rubs. Normal PMI, no JVD. No pulse deficits. Respiratory: Lungs have equal breath sounds bilaterally, clear to auscultation and percussion. No rales, rhonchi or wheezes noted. No increased work of breathing, no retractions or nasal flaring. Abdomen/GI: Soft, non-tender, with normal bowel sounds. No distension or tympany. No guarding or rebound. No evidence of tenderness throughout. Back: No spinal tenderness. No costovertebral tenderness. Full range of motion. Skin: Warm, dry with normal turgor. Normal color with no rashes, no lesions, and no evidence of cellulitis. MS/ Extremity: Pulses equal, no cyanosis. Neurovascular intact. Full, normal range of motion. 19:05 Neuro: Orientation: is normal, Motor: is normal, moves all fours. Vital Signs: 17:48 BP 143 / 103; Pulse 89; Resp 18; Temp 98.7; Pulse Ox 100% on R/A; ph 19:10 BP 117 / 82; Pulse 82; Resp 18; Pulse Ox 100% on R/A; mg2 21:05 BP 117 / 82; Pulse 81; Resp 18; Temp 98; Pulse Ox 100% on R/A; Pain 0/10; mg2 MDM: 18:18 Patient medically screened. soy 20:16 Data reviewed: vital signs. Data interpreted: Pulse oximetry: on room air is 100 %. pm1 Interpretation: normal. Counseling: I had a detailed discussion with the patient and/or guardian regarding: the historical points, exam findings, and any diagnostic results supporting the discharge/admit diagnosis, lab results, radiology results, the need for outpatient follow up, to return to the emergency department if symptoms worsen or persist or if there are any questions or concerns that arise at home. 20:29 ED course: Patient unable to provide stool sample during ER visit. pm1 07/04 18:14 Order name: Basic Metabolic Panel [facility] 07/04 18:14 Order name: CBC with Diff; Complete Time: 19:27 mg2 07/04 18:14 Order name: Creatinine for Radiology [facility] 07/04 18:14 Order name: Hepatic Function [facility] 07/04 18:14 Order name: Lipase [facility] 07/04 18:24 Order name: UDS; Complete Time: 20:15 pm1 07/04 18:27 Order name: CDIFF pm1 07/04 18:27 Order name: Fecal Leukocyte Stain pm1 07/04 18:27 Order name: Ova And Parasites pm1 07/04 18:27 Order name: Stool Culture pm1 07/04 18:27 Order name: CT Abd/Pelvis - IV Contrast Only; Complete Time: 19:47 pm1 07/04 19:07 Order name: CBC Smear Scan; Complete Time: 19:27 EDWA 07/04 19:50 Order name: Urine Dipstick--Ancillary (enter results); Complete Time: 20:27 cm6 07/04 18:14 Order name: IV Saline Lock; Complete Time: 18:37 [facility] 07/04 18:14 Order name: Labs collected and sent; Complete Time: 18:37 [facility] 07/04 18:27 Order name: Urine Dipstick-Ancillary (obtain specimen); Complete Time: 19:45 pm1 Administered Medications: 18:37 Drug: NS 0.9% 1000 ml Route: IV; Rate: 1000 ml; Site: right forearm; mg2 20:31 Follow up: Response: No adverse reaction; IV Status: Completed infusion; IV Intake: mg2 1000ml 20:32 Drug: Phenergan 12.5 mg Route: IVP; Site: right forearm; mg2 20:42 Follow up: Response: No adverse reaction mg2 Disposition: 07/04/19 20:28 Discharged to Home. Impression: Unspecified abdominal pain, Diarrhea, unspecified, Cocaine abuse. - Condition is Stable. - Discharge Instructions: Abdominal Pain, Adult, Food Choices to Help Relieve Diarrhea, Adult, Stimulant Use Disorder-Cocaine, Diarrhea, Adult. - Prescriptions for Bentyl 20 mg Oral Tablet - take 1 tablet by ORAL route every 6 hours As needed; 20 tablet. promethazine 25 mg Oral Tablet - take 1 tablet by ORAL route every 6 hours As needed; 20 tablet. - Medication Reconciliation Form, Thank You Letter, Antibiotic Education, Prescription Opioid Use form. - Follow up: Emergency Department; When: As needed; Reason: Worsening of condition. Follow up: Private Physician; When: 2 - 3 days; Reason: Recheck today's complaints, Continuance of care, Re-evaluation by your physician. - Problem is new. - Symptoms have improved. Signatures: Dispatcher [employer] EDMS Bruce Jackson MD MD cha Hall, Patricia, RN RN ph Clark Gómez, ADOLPH INSTRUMENT MAKER AND REPAIRER pm1 Jack Ghotra RN RN mg2 Corrections: (The following items were deleted from the chart) 19:46 18:27 Urine Test ordered. pm1 jp3 21:06 20:28 07/04/2019 20:28 Discharged to Home. Impression: Unspecified abdominal pain; mg2 Diarrhea, unspecified; Cocaine abuse. Condition is Stable. Forms are Medication Reconciliation Form, Thank You Letter, Antibiotic Education, Prescription Opioid Use. Follow up: Emergency Department; When: As needed; Reason: Worsening of condition. Follow up: Private Physician; When: 2 - 3 days; Reason: Recheck today's complaints, Continuance of care, Re-evaluation by your physician. Problem is new. Symptoms have improved. pm1
[2019-07-04 22:17] VITALS: O2SAT 100
[2019-07-04 22:18] VITALS: BP 117/82
[2019-07-04 22:20] VITALS: TEMP 98
== END 2019-07-04 21:06 | disposition home or self-care (01) ==
LOC: ER 17:32
DX: R19.7 Diarrhea, unspecified (principal); F14.10 Cocaine abuse, uncomplicated; F31.9 Bipolar disorder, unspecified; F20.9 Schizophrenia, unspecified; F41.9 Anxiety disorder, unspecified; F32.9 Major depressive disorder, single episode, unspecified
CPT/HCPCS: 87045; 85025; 80048; 36415; 89055; 87177; 80076; 87046; 80307 ×8; 87493; 87209; 81003; 83690; 74177; Q9967; J2550; J7030; 96361; 96374; 99284

== ENCOUNTER 2019-07-13 21:20 | Emergency (ER) | payer OTHER ==
--- OUTSIDE RECORDS SUMMARY | 2019-07-13 21:23 | XMS REPORT ---
[...] tab every 6 hrs 2018 Zoloft ND 51759904744 100 mg Oral Active 2 tab Depakote ND 26625991665 500 MG Orally Active not defined Effexor NDC 0 100 MG Orally Active 1 tablet Once a day with food Lorazepam NDC 47275857612 1 MG Orally Once Active 1 tablet a day at bedtime as needed Klonopin ND 93699958569 0.5 MG Orally Active 1 tablet Once a day at bedtime Acetaminophen- NDC 86148520142 300-30 MG Orally Active not Codeine #3 defined Tylenol # 3 NDC 0 300/30mg 1 PO Q May 07May Active one tab 6 hrs prn pain 2018 Results No Known Results Summary Purpose eClinicalWorks Submission
--- OUTSIDE RECORDS SUMMARY | 2019-07-13 21:23 | XMS REPORT ---
[...] Once a day with food Depakote NDC 07884053824 500 MG Orally Active as directed Once a day Trazodone HCl NDC 31420684589 100 MG Orally Active 1 tablet at Once a day bedtime Results No Known Results Summary Purpose eClinicalWorks Submission
--- OUTSIDE RECORDS SUMMARY | 2019-07-13 21:23 | XMS REPORT ---
:1975 Author Organization eClinicalWorks Care Team Providers Name Role Phone Saunders [facility] Provider Role Unavailable Allergies No [...] Status Dosage System Date Date Acetaminophen- NDC 66336613673 300-30 MG Orally Active not Codeine #3 defined Results No Known Results Summary Purpose eClinicalWorks Submission
--- OUTSIDE RECORDS SUMMARY | 2019-07-13 21:23 | XMS REPORT ---
[...] End Status Dosage System Date Date Lorazepam [facility] 96760755187 1 MG Orally Once Active 1 tablet a day at bedtime as needed Acetaminophen- NDC 95802399934 300-30 MG Orally Active not Codeine #3 defined Effexor NDC 0 100 MG Orally Active 1 tablet Once a day with food Klonopin ND 64511116821 0.5 MG Orally Active 1 tablet Once a day at bedtime Zoloft ND 63802710524 100 mg Oral Active 2 tab Tylenol # 3 NDC 0 300/30mg PO April 02, Active one tab every 6 hrs 2018 Depakote ND 20698012553 500 MG Orally Active not defined Results No Known Results Summary Purpose eClinicalWorks Submission
--- OUTSIDE RECORDS SUMMARY | 2019-07-13 21:23 | XMS REPORT ---
[...] End Status Dosage System Date Date Depakote [facility] 63639744639 500 MG Orally Active not defined Lorazepam ND 40738629812 1 MG Orally Once Active 1 tablet at a day bedtime as needed Zoloft ND 95795676622 100 mg Oral Active 2 tab Klonopin ND 87427083002 0.5 MG Orally Active 1 tablet at Once a day bedtime Tramadol HCl ND 12210757582 50 MG Orally 1 May 07May Active as directed PO 6 HRS PRN 2018, PAIN 2019 Acetaminophen- ND 92587929899 300-30 MG Orally Active not defined Codeine #3 Effexor NDC 0 100 MG Orally Active 1 tablet Once a day with food Tylenol # 3 NDC 0 300/30mg PO April 02, Active one tab every 6 hrs 2019 Results No Known Results Summary Purpose eClinicalWorks Submission
--- OUTSIDE RECORDS SUMMARY | 2019-07-13 21:24 | XMS REPORT ---
[...] End Status Dosage System Date Date Klonopin [facility] 86887379037 0.5 MG Orally Active 1 tablet Once a day at bedtime Lorazepam [facility] 10606949853 1 MG Orally Once Active 1 tablet a day at bedtime as needed Depakote [facility] 90682088157 500 MG Orally Active not defined Acetaminophen- ND 81010527964 300-30 MG Orally Active not Codeine #3 defined Tylenol # 3 NDC 0 300/30mg PO April 02, Active one tab every 6 hrs 2018 Zoloft ND 32273329358 100 mg Oral Active 2 tab Effexor NDC 0 100 MG Orally Active 1 tablet Once a day with food Results No Known Results Summary Purpose eClinicalWorks Submission
[2019-07-14] MEDS ORDERED: NA CHLORIDE 0.9% 1,000 ML ONE (00:25)
[2019-07-14 01:10] LABS: Absolute Lymphocytes (CBC) 1.9 K/uL (0.7-4.9); Basophils % 1.1 % (0-1.3); Hematocrit 30.9 % (36.0-45.0); Lymphocytes % 30.5 % (15.3-44.8); MPV 7.6 fL (7.6-11.3); RBC Red Blood Cell Count 4.52 M/uL (3.86-4.86)
[2019-07-14 01:33] LABS: Albumin 4.1 g/dL (3.4-5.0); Bilirubin Direct 0.1 mg/dL (0-0.2); Bilirubin Total 0.4 mg/dL (0.2-1.0); Protein, Total 7.9 g/dL (6.4-8.2)
[2019-07-14 02:14] LABS: Anisocytosis 1+; Blood Morphology Comment NOTED (NOT SEEN); Hypochromasia 1+; Platelet Estimate ADEQ; Urine White Blood Cell Casts OK
[2019-07-14] MEDS ORDERED: POTASSIUM CL SA 10 MEQ TAB PO ONE (03:53)
[2019-07-14] MEDS ORDERED: KCL 20 MEQ/100 mL IVPB 20 MEQ/100 ML BAG IV ONE (03:54)
[2019-07-14] MEDS ORDERED: NA CHLORIDE 0.9% 500 ML ONE (03:54)
--- NOTE | 2019-07-14 06:24 | ER ---
Nurse's Notes [facility] Name: Jennifer Salazar Age: 44 yrs Sex: Female : 1975 Arrival Date: 07/13/2019 Time: 21:23 Bed 14 Private MD: Diagnosis: Persistent diarrhea. Hypokalemia Presentation: 07/13 21:30 Presenting complaint: Patient states: I have this weird rash on my arms and legs and I la1 have been having diarrhea. Transition of care: patient was not received from another setting of care. Onset of symptoms was July 13, 2019. Risk Assessment: Do you want to hurt yourself or someone else? Patient reports no desire to harm self or others. Initial Sepsis Screen: Does the patient meet any 2 criteria? No. Patient's initial sepsis screen is negative. Does the patient have a suspected source of infection? No. Patient's initial sepsis screen is negative. Care prior to arrival: None. 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 - Social history:: Smoking status: Patient uses tobacco products, smokes two packs cigarettes per day. - Ebola Screening: : No symptoms or risks identified at this time. Screenin:45 Abuse screen: Denies threats or abuse. Nutritional screening: No deficits noted. jb4 Tuberculosis screening: No symptoms or risk factors identified. Fall Risk None identified. Assessment: 22:45 General: Appears in no apparent distress. uncomfortable, Behavior is cooperative, jb4 anxious. Pain: Complains of pain in right arm, left arm, right leg and left leg Pain does not radiate. Pain currently is 5 out of 10 on a pain scale. Quality of pain is described as crampy. Neuro: Level of Consciousness is awake, alert, obeys commands, Oriented to person, place, time, situation. Cardiovascular: Patient's skin is warm and dry. Respiratory: Airway is patent Respiratory effort is even, unlabored, Respiratory pattern is regular, symmetrical. GI: Reports diarrhea. : No deficits noted. No signs and/or symptoms were reported regarding the genitourinary system. EENT: No deficits noted. No signs and/or symptoms were reported regarding the EENT system. Derm: Skin is intact, Skin is pink, warm \T\ dry. Bruising that is bright red, dark purple, brown, green, yellow, on right arm, left arm, right leg and left leg. Musculoskeletal: Circulation, motion, and sensation intact. Range of motion: intact in all extremities. 07/14 00:00 Reassessment: Patient appears in no apparent distress at this time. Patient and/or jb4 family updated on plan of care and expected duration. Pain level reassessed. Patient is alert, oriented x 3, equal unlabored respirations, skin warm/dry/pink. 01:00 Reassessment: Patient appears in no apparent distress at this time. Patient and/or jb4 family updated on plan of care and expected duration. Pain level reassessed. Patient is alert, oriented x 3, equal unlabored respirations, skin warm/dry/pink. 02:00 Reassessment: Patient appears in no apparent distress at this time. Patient and/or jb4 family updated on plan of care and expected duration. Pain level reassessed. Pt is resting with eyes closed respirations even and unlabored. no s/s of distress or pain noted. 03:00 Reassessment: Patient appears in no apparent distress at this time. Patient and/or jb4 family updated on plan of care and expected duration. Pain level reassessed. Patient is alert, oriented x 3, equal unlabored respirations, skin warm/dry/pink. 04:00 Reassessment: Patient appears in no apparent distress at this time. Patient and/or jb4 family updated on plan of care and expected duration. Pain level reassessed. Patient is alert, oriented x 3, equal unlabored respirations, skin warm/dry/pink. 05:00 Reassessment: Patient appears in no apparent distress at this time. Patient and/or jb4 family updated on plan of care and expected duration. Pain level reassessed. Patient is alert, oriented x 3, equal unlabored respirations, skin warm/dry/pink. 06:32 Reassessment: Patient appears in no apparent distress at this time. Patient and/or jb4 family updated on plan of care and expected duration. Pain level reassessed. Patient is alert, oriented x 3, equal unlabored respirations, skin warm/dry/pink. Pt verbalized understanding of d/c and follow up instructions. ambulated out of ED with a steady gait. Patient denies pain at this time. Vital Signs: 07/13 21:29 BP 140 / 91; Pulse 74; Resp 16; Temp 97.5; Pulse Ox 100% on R/A; Weight 72.57 kg; la1 Height 5 ft. 6 in. (167.64 cm); 23:34 BP 108 / 73; Pulse 63; Resp 16; Pulse Ox 100% on R/A; jb4 07/14 00:30 BP 125 / 71; Pulse 54; Resp 16; Pulse Ox 100% on R/A; jb4 01:30 BP 107 / 70; Pulse 66; Resp 16; Pulse Ox 100% on R/A; jb4 02:30 BP 99 / 69; Pulse 67; Resp 16; Pulse Ox 99% on R/A; jb4 03:15 BP 112 / 81; Pulse 59; Resp 16; Pulse Ox 99% on R/A; jb4 04:00 BP 110 / 80; Pulse 75; Resp 16; Pulse Ox 100% on R/A; jb4 05:30 BP 116 / 82; Pulse 62; Resp 16; Pulse Ox 100% on R/A; jb4 06:15 BP 103 / 67; Pulse 56; Resp 16; Pulse Ox 99% on R/A; jb4 07/13 21:29 Body Mass Index 25.82 (72.57 kg, 167.64 cm) la1 ED Course: 07/13 21:23 Patient arrived in ED. cf2 21:29 Arm band placed on left wrist. la1 21:30 Triage completed. la1 22:40 Daniel Schneider, ALEKSEY is Primary Nurse. jb4 22:45 Patient has correct armband on for positive identification. Bed in low position. Call 4 light in reach. Side rails up X 1. 07/14 00:09 Isael Mullen MD is Attending Physician. pkl 00:55 Initial lab(s) drawn, by me, by EMS personnel. Inserted saline lock: 20 gauge in right jb4 wrist, using aseptic technique. Blood collected. 06:15 No provider procedures requiring assistance completed. IV discontinued, intact, jb4 bleeding controlled, No redness/swelling at site. Pressure dressing applied. 06:22 Clyde Flores MD is Referral Physician. pkl Administered Medications: 00:55 Drug: NS 0.9% 1000 ml Route: IV; Rate: 1000 ml; Site: right wrist; jb4 02:00 Follow up: Response: No adverse reaction; IV Status: Completed infusion; IV Intake: jb4 1000ml 04:03 Drug: Potassium Chloride 20 mEq Route: IV; Rate: calculated rate; Site: right wrist; jb4 06:16 Follow up: IV Status: Completed infusion; IV Intake: 100ml ; Administed with 250 ml of jb4 NS 04:03 Drug: K-Dur 20 mEq Route: PO; jb4 06:16 Follow up: Response: No adverse reaction jb4 Intake: 02:00 IV: 1000ml; Total: 1000ml. jb4 06:16 IV: 100ml; Total: 1100ml. jb4 Outcome: 06:23 Discharge ordered by . pkl 06:35 Discharged to home ambulatory, with friend. jb4 06:35 Condition: stable 06:35 Discharge instructions given to patient, Instructed on discharge instructions, follow up and referral plans. medication usage, Demonstrated understanding of instructions, follow-up care, medications, Prescriptions given X 1. 06:35 Patient left the ED. jb4 Signatures: Isael Mullen MD MD pkl Davin Strickland RN RN la1 Daniel Schneider RN RN jb4 Cindi Hankins 2
--- NOTE | 2019-07-14 06:25 | EDPHYS ---
Physician Documentation [facility] Name: Jennifer Salazar Age: 44 yrs Sex: Female : 1975 Arrival Date: 07/13/2019 Time: 21:23 Bed 14 Private MD: ED Physician Isael Mullen HPI: 07/14 00:21 This 44 yrs old Female presents to ER via Ambulatory with complaints of Leg pkl Pain, Diarrhea, having mental problems. 00:21 The patient presents to the emergency department with diarrhea. Onset: The pkl symptoms/episode began/occurred 1 week(s) ago. Associated signs and symptoms: Pertinent positives: bruises on arms and legs. 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 - Social history:: Smoking status: Patient uses tobacco products, smokes two packs cigarettes per day. - Ebola Screening: : No symptoms or risks identified at this time. ROS: 07/14 00:21 Eyes: Negative for injury, pain, redness, and discharge, ENT: Negative for injury, pkl pain, and discharge, Neck: Negative for injury, pain, and swelling, Cardiovascular: Negative for chest pain, palpitations, and edema, Respiratory: Negative for shortness of breath, cough, wheezing, and pleuritic chest pain. Abdomen/GI: Positive for diarrhea. Back: Negative for acute changes. : Negative for urinary symptoms. MS/extremity: Negative for acute changes. Skin: Positive for ecchymosis, of the both arms legs. Neuro: Negative for altered mental status. Exam: 00:21 Head/Face: Normocephalic, atraumatic. Eyes: Pupils equal round and reactive to light, pkl extra-ocular motions intact. Lids and lashes normal. Conjunctiva and sclera are non-icteric and not injected. Cornea within normal limits. Periorbital areas with no swelling, redness, or edema. ENT: Nares patent. No nasal discharge, no septal abnormalities noted. Tympanic membranes are normal and external auditory canals are clear. Oropharynx with no redness, swelling, or masses, exudates, or evidence of obstruction, uvula midline. Mucous membranes moist. Neck: Trachea midline, no thyromegaly or masses palpated, and no cervical lymphadenopathy. Supple, full range of motion without nuchal rigidity, or vertebral point tenderness. No Meningismus. Chest/axilla: Normal chest wall appearance and motion. Nontender with no deformity. No lesions are appreciated. Cardiovascular: Regular rate and rhythm with a normal S1 and S2. No gallops, murmurs, or rubs. Normal PMI, no JVD. No pulse deficits. Respiratory: Lungs have equal breath sounds bilaterally, clear to auscultation and percussion. No rales, rhonchi or wheezes noted. No increased work of breathing, no retractions or nasal flaring. 00:21 Abdomen/GI: Bowel sounds: normal, Palpation: abdomen is soft and non-tender, in all quadrants, Rectal exam: Stool: guaiac negative, the exam is chaperoned by the nurse. 00:21 Back: Exam negative for acute changes. 00:21 : Exam negative for acute changes. 00:21 Musculoskeletal/extremity: Exam is negative for acute changes. 00:21 Skin: Appearance: ecchymosis, noted on the, both arms and legs. 00:21 Neuro: Orientation: is normal, Mentation: is normal, Cranial nerves: grossly normal, Motor: is normal. Vital Signs: 07/13 21:29 BP 140 / 91; Pulse 74; Resp 16; Temp 97.5; Pulse Ox 100% on R/A; Weight 72.57 kg; la1 Height 5 ft. 6 in. (167.64 cm); 23:34 BP 108 / 73; Pulse 63; Resp 16; Pulse Ox 100% on R/A; jb4 07/14 00:30 BP 125 / 71; Pulse 54; Resp 16; Pulse Ox 100% on R/A; jb4 01:30 BP 107 / 70; Pulse 66; Resp 16; Pulse Ox 100% on R/A; jb4 02:30 BP 99 / 69; Pulse 67; Resp 16; Pulse Ox 99% on R/A; jb4 03:15 BP 112 / 81; Pulse 59; Resp 16; Pulse Ox 99% on R/A; jb4 04:00 BP 110 / 80; Pulse 75; Resp 16; Pulse Ox 100% on R/A; jb4 05:30 BP 116 / 82; Pulse 62; Resp 16; Pulse Ox 100% on R/A; jb4 06:15 BP 103 / 67; Pulse 56; Resp 16; Pulse Ox 99% on R/A; jb4 07/13 21:29 Body Mass Index 25.82 (72.57 kg, 167.64 cm) la1 MDM: 00:09 Patient medically screened. pkl 06:21 Data reviewed: vital signs, nurses notes, lab test result(s). pkl 07/14 00:19 Order name: Basic Metabolic Panel; Complete Time: 03:35 pkl 07/14 00:19 Order name: CBC with Diff; Complete Time: 03:35 pkl 07/14 00:19 Order name: Creatinine for Radiology; Complete Time: 03:35 pkl 07/14 00:19 Order name: Hepatic Function; Complete Time: 03:35 pkl 07/14 00:19 Order name: Lipase; Complete Time: 03:35 pkl 07/14 00:19 Order name: IV Saline Lock; Complete Time: 00:58 pkl 07/14 00:19 Order name: Labs collected and sent; Complete Time: 00:58 pkl 07/14 02:15 Order name: CBC Smear Scan; Complete Time: 03:35 EDMS Administered Medications: 00:55 Drug: NS 0.9% 1000 ml Route: IV; Rate: 1000 ml; Site: right wrist; jb4 02:00 Follow up: Response: No adverse reaction; IV Status: Completed infusion; IV Intake: jb4 1000ml 04:03 Drug: Potassium Chloride 20 mEq Route: IV; Rate: calculated rate; Site: right wrist; jb4 06:16 Follow up: IV Status: Completed infusion; IV Intake: 100ml ; Administed with 250 ml of jb4 NS 04:03 Drug: K-Dur 20 mEq Route: PO; jb4 06:16 Follow up: Response: No adverse reaction jb4 Disposition: 07/14/19 06:23 Discharged to Home. Impression: Persistent diarrhea. Hypokalemia. - Condition is Stable. - Prescriptions for Lomotil 2.5- 0.025 mg Oral Tablet - take 2 tablet by ORAL route once daily As needed; 20 tablet. - Medication Reconciliation Form, Thank You Letter, Antibiotic Education, Prescription Opioid Use form. - Follow up: Clyde Flores MD; When: 2 - 3 days; Reason: Re-evaluation by your physician. - Problem is new. - Symptoms have improved. Signatures: Dispatcher [employer] EDIsael Pearl MD MD pkl Davin Strickland RN RN la1 Daniel Schneider RN RN jb4 Corrections: (The following items were deleted from the chart) 06:35 06:23 07/14/2019 06:23 Discharged to Home. Impression: Persistent diarrhea. jb4 Hypokalemia. Condition is Stable. Forms are Medication Reconciliation Form, Thank You Letter, Antibiotic Education, Prescription Opioid Use. Follow up: Clyde Flores; When: 2 - 3 days; Reason: Re-evaluation by your physician. Problem is new. Symptoms have improved. pkl
[2019-07-14 07:31] VITALS: TEMP 97.5
[2019-07-14 07:40] VITALS: BP 103/67; O2SAT 99
== END 2019-07-14 06:35 | disposition home or self-care (01) ==
LOC: ER 21:20
DX: R19.7 Diarrhea, unspecified (principal); E87.6 Hypokalemia; F17.210 Nicotine dependence, cigarettes, uncomplicated
CPT/HCPCS: 96365; 96361; 85025; 80048; 36415; 80076; 83690; 99284; 96366; J7030

== ENCOUNTER 2019-11-14 17:28 | Emergency (ER) | payer OTHER ==
--- OUTSIDE RECORDS SUMMARY | 2019-11-14 17:29 | XMS REPORT ---
[...] End Status Dosage System Date Date Lorazepam [facility] 49207993944 1 MG Orally Once Active 1 tablet a day at bedtime as needed Acetaminophen- NDC 01499447697 300-30 MG Orally Active not Codeine #3 defined Effexor NDC 0 100 MG Orally Active 1 tablet Once a day with food Klonopin ND 66661002343 0.5 MG Orally Active 1 tablet Once a day at bedtime Zoloft ND 08224596507 100 mg Oral Active 2 tab Tylenol # 3 NDC 0 300/30mg PO April 02, Active one tab every 6 hrs 2018 Depakote ND 68316934298 500 MG Orally Active not defined Results No Known Results Summary Purpose eClinicalWorks Submission
--- OUTSIDE RECORDS SUMMARY | 2019-11-14 17:29 | XMS REPORT ---
:1975 [facility] Address [address] [place] [address] Dr. Hendricks [address] [place] [id number] Care Team Providers Name Role Phone Unavailable Unavailable Unavailable Problems This patient has no known problems. Allergies, Adverse Reactions, Alerts This patient has no known allergies or adverse reactions. Medications This patient has no known medications.
--- OUTSIDE RECORDS SUMMARY | 2019-11-14 17:29 | XMS REPORT ---
:1975 Author Organization [employer] Care Team Providers Name Role Phone [facility] Provider Role Unavailable Allergies No Known Allergies [...] Status Dosage System Date Date Acetaminophen- NDC 60348388469 300-30 MG Orally Active not Codeine #3 defined Results No Known Results Summary Purpose eClinicalWorks Submission
--- OUTSIDE RECORDS SUMMARY | 2019-11-14 17:29 | XMS REPORT ---
[...] Once a day with food Depakote NDC 87862814313 500 MG Orally Active as directed Once a day Trazodone HCl NDC 20187732130 100 MG Orally Active 1 tablet at Once a day bedtime Results No Known Results Summary Purpose eClinicalWorks Submission
--- OUTSIDE RECORDS SUMMARY | 2019-11-14 17:30 | XMS REPORT ---
[...] End Status Dosage System Date Date Klonopin [facility][NOTE 3] 22994861931 0.5 MG Orally Active 1 tablet Once a day at bedtime Lorazepam [facility][NOTE 3] 63310044794 1 MG Orally Once Active 1 tablet a day at bedtime as needed Depakote [facility][NOTE 3] 92009837640 500 MG Orally Active not defined Acetaminophen- ND 16627766506 300-30 MG Orally Active not Codeine #3 defined Tylenol # 3 NDC 0 300/30mg PO April 02, Active one tab every 6 hrs 2018 Zoloft ND 67001838863 100 mg Oral Active 2 tab Effexor NDC 0 100 MG Orally Active 1 tablet Once a day with food Results No Known Results Summary Purpose eClinicalWorks Submission
--- OUTSIDE RECORDS SUMMARY | 2019-11-14 17:30 | XMS REPORT | Summary of Care ---
:1975 Author Organization [facility] - Health Address [address] [place] [id number] Care Team Providers Name Role Phone Edmar Joya Insurance Hmo Pcp, Patient Does Not Have A Primary Care Provider Reason for Visit Reason Comments SUICIDAL Medication Assistance Auth/Cert Status Reason Specialty Diagnoses / Referred By Referred To Procedures Contact Contact Emergency [facility] [address] [place] [address] [place] [address] Encounter Details Date Type Department Care Team Description 07/16/2019 Emergency [facility] Jimbo Sommers MD Suicidal ideations (Primary Dx); Department [address] [place] [address] Cocaine abuse; [address] [place] [address] [address] [place], [place] [address] [place] [address] Allergies Active Allergy Reactions Severity Noted Date Comments Tramadol Itching, Nausea and/or Vomiting 09/15/2018 documented as of this encounter (statuses as of 07/16/2019) Medications Not on filedocumented as of this encounter (statuses as of 07/16/2019) Active Problems Not on filedocumented as of this encounter (statuses as of 07/16/2019) Social History Tobacco Use Types Packs/Day Years Used Date Never Assessed Sex Assigned at Date Recorded Not on file Job Start Date Occupation Industry Not on file Not on file Not on file Travel History Travel Start Travel End No recent travel history available. documented as of this encounter Last Filed Vital Signs Vital Sign Reading Time Taken Comments Blood Pressure 132/76 07/16/2019 7:00 PM CDT Pulse 66 07/16/2019 7:00 PM CDT Temperature 36.8 C (98.2 F) 07/16/2019 3:03 PM CDT Respiratory Rate 18 07/16/2019 7:00 PM CDT Oxygen Saturation 98% 07/16/2019 7:00 PM CDT Inhaled Oxygen Concentration - - Weight 79.4 kg (175 lb) 07/16/2019 3:02 PM CDT Height - - Body Mass Index - - documented in this encounter Plan of Treatment Health Maintenance Due Date Last Done Comments DTaP,Tdap,and Td Vaccines ( - 1993 Tdap) MAMMOGRAM 2014 PAP SMEAR 01/16/2015 01/17/2012 INFLUENZA VACCINE (Retired 07/12/2019 version) PNEUMOCOCCAL 0-64 YEARS COMBINED Aged Out No longer eligible based on SERIES patient's age to complete this topic documented as of this encounter Procedures Procedure Name Priority Date/Time Associated Comments Diagnosis CBC WITH DIFFERENTIAL STAT 07/16/2019 3:51 Suicidal ideations Results for this PM CDT procedure are in the results section. ADC / LCC - DRUG STAT 07/16/2019 3:51 Suicidal ideations Results for this SCREEN TRIAGE PM CDT procedure are in the results section. URINALYSIS STAT 07/16/2019 3:51 Suicidal ideations Results for this PM CDT procedure are in the results section. CBC WITH DIFF Routine 07/16/2019 3:51 Suicidal ideations Results for this PM CDT procedure are in the results section. ETHANOL STAT 07/16/2019 3:51 Suicidal ideations Results for this PM CDT procedure are in the results section. SALICYLATE STAT 07/16/2019 3:51 Suicidal ideations Results for this PM CDT procedure are in the results section. ACETAMINOPHEN STAT 07/16/2019 3:51 Suicidal ideations Results for this PM CDT procedure are in the results section. BASIC METABOLIC PANEL STAT 07/16/2019 3:51 Suicidal ideations Results for this (NA, K, CL, CO2, PM CDT procedure are in GLUCOSE, BUN, the results CREATININE, CA) section. HEPATIC FUNCTION PANEL STAT 07/16/2019 3:51 Suicidal ideations Results for this (18577) PM CDT procedure are in (ALB,T.PRO,BILI the results T,BU/BC,ALT,AST,ALK section. PHOS) THYROID STIMULATING STAT 07/16/2019 3:51 Suicidal ideations Results for this HORMONE PM CDT procedure are in the results section. FREE T4 STAT 07/16/2019 3:51 Suicidal ideations Results for this PM CDT procedure are in the results section. POCT TEST BOBBI 07/16/2019 3:37 Suicidal ideations Results for this PM CDT procedure are in the results section. EKG-12 LEAD STAT 07/16/2019 3:28 PM CDT NOTICE OF PRIVACY Routine 07/16/2019 2:39 PRACTICES PM CDT CONSENT/REFUSAL FOR Routine 07/16/2019 2:38 DIAGNOSIS AND PM CDT TREATMENT documented in this encounter Results CBC WITH DIFFERENTIAL (07/16/2019 3:51 PM CDT) WBC 3.61 (L) 4.30 - 11.10 [facility] 10*3/L [facility] RBC 4.16 3.93 - 5.25 [facility] 10*6/L [facility] HGB 8.6 (L) 11.6 - 15.0 [facility] g/dL [facility] HCT 29.5 (L) 35.7 - 45.2 % [facility] MCV 70.9 (L) 80.6 - 95.5 fL [facility] MCH 20.7 (L) 25.9 - 32.8 pg [facility] MCHC 29.2 (L) 31.6 - 35.1 [facility] g/dL [facility] RDW-SD 51.6 (H) 39.0 - 49.9 fL [facility] RDW-CV 20.4 (H) 12.0 - 15.5 % [facility] PLT 317 166 - 358 [facility] 10*3/L [facility] MPV 9.2 (L) 9.5 - 12.9 fL [facility] NRBC/100 WBC 0.0 0.0 - 10.0 /100 [facility] WBCs [facility] NRBC x10^3 <0.01 10*3/L [facility] GRAN MAT (NEUT) % 58.7 % [facility] IMM GRAN % 0.30 % [facility] LYMPH % 24.1 % [facility] MONO % 15.5 % [facility] EOS % 0.8 % [facility] BASO % 0.6 % [facility] GRAN MAT x10^3(ANC) 2.12 1.88 - 7.09 [facility] 10*3/uL [facility] IMM GRAN x10^3 <0.03 0.00 - 0.[address]/uL [facility] LYMPH x10^3 0.87 (L) 1.32 - 3.[address]/uL [facility] MONO x10^3 0.56 0.33 - 0.[address]/[facility] EOS x10^3 0.03 0.03 - 0.[address]/[facility] BASO x10^3 <0.03 0.01 - 0.[address]/[facility] Specimen Blood - VENOUS Performing Organization Address [facility] Phone Number [facility] CLIA: [id number], [address] [place], [place] [id number] [address] ACETAMINOPHEN (07/16/2019 3:51 PM CDT) ACETAMINOP <10.0 (L) 10.0 - 30.0 ug/mL [facility] Specimen Blood - VENOUS Narrative Performed At Toxic: Greater than 200 ug/mL @ 4 hour post [facility] ingestion or greater than 50 ug/mL @ 12 hour post ingestion Performing Organization Address [facility] Phone Number [facility] CLIA: [id number], [address] [place], [place] [id number] [address] SALICYLATE (07/16/2019 3:51 PM CDT) SALICYLATE <10 mg/L [facility] Specimen Blood - VENOUS Narrative Performed At Therapeutic Range: [facility] Analgesic and Antipyretic Use 20-100 mg/L Anti-Inflammatory Use 100-250 mg/L Toxic Range: Greater than 300 mg/L Performing Organization Address [facility] Phone Number [facility] CLIA: [id number], [address] [place] [address] FREE T4 (07/16/2019 3:51 PM CDT) FREE T4 1.34 0.78 - 2.20 ng/dL [facility] Specimen Blood - VENOUS Performing Organization Address [facility] Phone Number [facility] CLIA: [id number], [address] [place] [address] [address] THYROID STIMULATING HORMONE (07/16/2019 3:51 PM CDT) TSH 0.45 0.45 - 4.70 mIU/L [facility] Specimen Blood - VENOUS Performing Organization Address City/[facility] Phone Number [facility] CLIA: [id number], [address] [place], [place] [address] LAB[address]AT[address] ETHANOL (07/16/2019 3:51 PM CDT) ALCOHOL <10 mg/dL [facility] Specimen Blood - VENOUS Narrative Performed At <10 Negative [facility] 50-100 Toxic >100 Depression of WEIGHT CONTROL ENGINEER >400 Fatalities Reported Performing Organization Address City/[facility] Phone Number [facility] CLIA: [id number], [address] [place] [address] ADC / LCC - DRUG SCREEN TRIAGE (07/16/2019 3:51 PM CDT) BENZO U Presumptive Negative [facility] () [facility] ILEANA U Negative Negative [facility] AMPHET Negative Negative [facility] THC Negative Negative [facility] METHADONE Negative Negative [facility] Meth U Negative Negative [facility] OPIATES Negative Negative [facility] Cocaine Metabolite Presumptive Negative [facility] () [facility] PROPOXY Negative Negative [facility] Tric U Negative Negative [facility] PCP Negative Negative [facility] OXYCOD Negative Negative [facility] Specimen Urine - URINE, CLEAN CATCH Narrative Performed At Urine Drug Cutoff Ranges [facility] Benzodiazepines: 150 ng/mL Barbiturates: 200 ng/mL Amphetamine: 500 ng/mL Cannabinoids: 50ng/mL Methadone: 200 ng/mL Methamphetamine: 500 ng/mL Opiates: 100 ng/mL or 2000 ng/mL Cocaine: 150 ng/mL Propoxyphene:300 ng/mL Tricyclics:300 ng/mL Oxycodone: 100 ng/mL PCP: 25ng/mL The results are to be used only for medical (i.e., treatment) purposes. Unconfirmed screening results must not be used for non-medical purposes (e.g., employment testing, legal testing). Performing Organization Address [facility] Phone Number [facility] CLIA: [id number], [address] [place], [place] [address] LABORATORY [facility] Hepatic Function Panel (ALB, T.PRO, BILI T, BU/BC, ALT, AST, ALK PHOS) (2018 3:51 PM CDT) TOTAL BILI 0.2 0.1 - 1.1 mg/dL [facility] BILI UNCON 0.2 0.1 - 1.1 mg/dL [facility] BILI CONJ 0.0 0.0 - 0.3 mg/dL [facility] T PROTEIN 7.2 6.3 - 8.2 g/dL [facility] ALBUMIN 4.4 3.5 - 5.0 g/dL [facility] ALK PHOS 54 34 - 122 U/L [facility] ALT(SGPT) 26 9 - 51 U/L [facility] AST(SGOT) 25 13 - 40 U/L [facility] Specimen Blood - VENOUS Performing Organization Address [facility] Phone Number [facility] CLIA: [id number], [address] [place], [place] [address] LABORATORY [facility] Basic Metabolic Panel (NA, K, CL, CO2, GLUCOSE, BUN, CREATININE, CA) (2018 3:51 PM CDT) NA 148 (H) 135 - 145 [facility] mmol/L [facility] K 3.4 (L) 3.5 - 5.0 [facility] mmol/L [facility] CL 113 (H) 98 - 108 mmol/L [facility] CO2 TOTAL 25 23 - 31 mmol/L [facility] AGAP 10 2 - 16 [facility] BUN 11 7 - 23 mg/dL [facility] GLUCOSE 98 70 - 110 mg/dL [facility] CREATININE 0.78 0.50 - 1.04 [facility] mg/dL [facility] CALCIUM 9.2 8.6 - 10.6 [facility] mg/dL [facility] eGFR Calculation 79.9 mL/min/1.73m2 [facility] (Non-[facility] LABORATORY [place]) eGFR Calculation 96.8 mL/min/1.73m2 [facility] () [facility] Specimen Blood - VENOUS Narrative Performed At Association of Glomerular Filtration Rate (GFR) [facility] and Staging of Kidney Disease* + + +- + | GFR (mL/min/1.73 m2)| With Kidney Damage|Without Kidney Damage + + +- + |>90| Stage one| Normal + + +- + |60-89|S tage two| Decreased GFR + + +- + |30-59|S tage three| Stage three + + +- + |15-29|S tage four | Stage four + + +- + |<15 (or dialysis)|Stage five | Stage five + + +- + *Each stage assumes the associated GFR level has been in effect for at least three months.Stages 1 to 5, with or without kidney disease, indicate chronic kidney disease. Notes: Determination of stages one and two (with eGFR >59mL/min/1.73 m2) requires estimation of kidney damage for at least three months as defined by structural or functional abnormalities of the kidney, manifested by either: Pathological abnormalities or Markers of kidney damage (including abnormalities in the composition of the blood or urine or abnormalities in imaging tests). Performing Organization Address City/State/Zipcode Phone Number [facility] CLIA: [id number], [address] [place] [address] Urinalysis (07/16/2019 3:51 PM CDT) APPEARANCE Clear Clear [facility] COLOR Yellow Yellow [facility] PH 6.0 4.8 - 8.0 [facility] SP GRAVITY 1.025 1.003 - 1.030 [facility] GLU U QUAL Negative Negative [facility] BLOOD Trace (A) Negative [facility] KETONES Trace (A) Negative [facility] PROTEIN Negative Negative [facility] UROBILIN 0.2 mg/dL 0-1.0 mg/dL [facility] BILIRUBIN Small (A) Negative [facility] NITRITE Negative Negative [facility] LEUK MAYNOR Negative Negative [facility] RBC/HPF 0 0 - 3 HPF [facility] WBC/HPF 2 0 - 5 HPF [facility] BACTERIA Negative Negative [facility] AMORPHOUS Few HPF [facility] SQ EPITH 3 HPF [facility] Ictotest Negative [facility] Specimen Urine - URINE, CLEAN CATCH Performing Organization Address City/State/Zipcode Phone Number [facility] CLIA: [id number], [address] [place] [address] POCT Test, Urine (07/16/2019 3:37 PM CDT) POCT PREG negative On board controls acceptable present with C Line POCT PREG LOT # [id number] POCT PREG TEST DATE 11/10/2020 Specimen Urine - URINE, CLEAN CATCH documented in this encounter Visit Diagnoses Diagnosis Suicidal ideations - Primary Suicidal ideation Cocaine abuse Cocaine abuse, unspecified Anemia, unspecified type documented in this encounter Administered Medications Medication Order MAR Action Action Date Dose Rate Site LORazepam (ATIVAN) tablet 2 mg Given 07/16/2019 4:02 PM CDT 2 mg 2 mg, Oral, ONCE, 1 dose, Xiomy 07/16/19 at 1600, BOBBI LORazepam (ATIVAN) tablet 2 mg Given 07/16/2019 7:37 PM CDT 2 mg 2 mg, Oral, ONCE, 1 dose, Xiomy 07/16/19 at 1945, BOBBI documented in this encounter Insurance Payer Benefit Plan / Subscriber ID Effective Dates Phone Address Type Group [facility] xxxxxxxxx 2018-[facility] Medicaid COMM PLAN - PLUS t MANAGED MEDICAID documented as of this encounter"
--- OUTSIDE RECORDS SUMMARY | 2019-11-14 17:30 | XMS REPORT ---
[...] tab every 6 hrs 2018 Zoloft ND 84146730901 100 mg Oral Active 2 tab Depakote ND 63171141143 500 MG Orally Active not defined Effexor NDC 0 100 MG Orally Active 1 tablet Once a day with food Lorazepam NDC 83543456007 1 MG Orally Once Active 1 tablet a day at bedtime as needed Klonopin ND 03787199733 0.5 MG Orally Active 1 tablet Once a day at bedtime Acetaminophen- NDC 26741611128 300-30 MG Orally Active not Codeine #3 defined Tylenol # 3 NDC 0 300/30mg 1 PO Q May 07May Active one tab 6 hrs prn pain 2018 Results No Known Results Summary Purpose eClinicalWorks Submission
--- OUTSIDE RECORDS SUMMARY | 2019-11-14 17:30 | XMS REPORT ---
[...] End Status Dosage System Date Date Depakote [facility] 70633148995 500 MG Orally Active not defined Lorazepam ND 82958084285 1 MG Orally Once Active 1 tablet at a day bedtime as needed Zoloft ND 14551885538 100 mg Oral Active 2 tab Klonopin ND 77334395033 0.5 MG Orally Active 1 tablet at Once a day bedtime Tramadol HCl ND 00947369037 50 MG Orally 1 May 07May Active as directed PO 6 HRS PRN 2018, PAIN 2019 Acetaminophen- ND 29836420626 300-30 MG Orally Active not defined Codeine #3 Effexor NDC 0 100 MG Orally Active 1 tablet Once a day with food Tylenol # 3 NDC 0 300/30mg PO April 02, Active one tab every 6 hrs 2019 Results No Known Results Summary Purpose eClinicalWorks Submission
[2019-11-14] MEDS ORDERED: NA CHLORIDE 0.9% 0 ML ONE (19:04)
[2019-11-14] MEDS ORDERED: LORAZEPAM 1 MG TABLET ONE (19:04)
[2019-11-14 19:42] LABS: Urine Blood NEGATIVE (NEG); Urine Glucose NEGATIVE (NEG); Urine Protein NEGATIVE (NEG); Urine pH 6.5 (5.0-7.0)
[2019-11-14 19:46] LABS: ALT/SGPT 31 U/L (12-78); AST/SGOT 34 U/L (15-37); Albumin 3.8 g/dL (3.4-5.0); Alkaline Phosphatase 58 U/L (45-117); BUN Blood Urea Nitrogen 13 mg/dL (7-18); Bicarbonate 26 mmol/L (21-32); Bilirubin Direct < 0.1 mg/dL (0-0.2); Bilirubin Total 0.2 mg/dL (0.2-1.0); Glucose Level 91 mg/dL (74-106); Protein, Total 7.1 g/dL (6.4-8.2); Sodium Level 142 mmol/L (136-145)
[2019-11-14 19:46] LABS: Barbiturates NEGATIVE (NEGATIVE); Benzodiazepines POSITIVE (NEGATIVE); Cocaine POSITIVE (NEGATIVE); METHAMPHETAM NEGATIVE (NEGATIVE); Methadone NEGATIVE (NEGATIVE); Opiates NEGATIVE (NEGATIVE); Phencyclidine NEGATIVE (NEGATIVE); THC Cannibis NEGATIVE (NEGATIVE)
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
--- NOTE | 2019-11-14 20:39 | RAD REPORT ---
EXAM DESCRIPTION: RAD - Chest Pa And Lat (2 Views) - 11/14/2019 7:00 pm CLINICAL HISTORY: COUGH COMPARISON: Chest Single View dated 12/23/2018 TECHNIQUE: Frontal and lateral views of the chest were obtained. FINDINGS: The lungs are clear. Lung markings match comparison Heart size is normal and central vasc ulature is within normal limits. No pleural effusion or pneumothorax seen. No acute bony finding no an. No aortic abnormality. IMPRESSION: No acute cardiopulmonary process.
[2019-11-14 21:19] VITALS: BP 142/86; TEMP 98.6; O2SAT 99
== END 2019-11-14 21:08 | disposition home or self-care (01) ==
LOC: ER 17:28
DX: F43.0 Acute stress reaction (principal); J06.9 Acute upper respiratory infection, unspecified; F14.10 Cocaine abuse, uncomplicated; F41.9 Anxiety disorder, unspecified; F31.9 Bipolar disorder, unspecified; F20.9 Schizophrenia, unspecified
CPT/HCPCS: 71046; 80048; 80076; 80307; 80320; 80329; 81003; 81025; 87070; 87081; 87804; 99283; J7030

== ENCOUNTER 2019-11-17 16:19 | Emergency (ER) | payer OTHER ==
--- OUTSIDE RECORDS SUMMARY | 2019-11-17 16:21 | XMS REPORT ---
[...] End Status Dosage System Date Date Depakote [facility] 72479000100 500 MG Orally Active not defined Lorazepam ND 61423211736 1 MG Orally Once Active 1 tablet at a day bedtime as needed Zoloft ND 86207101979 100 mg Oral Active 2 tab Klonopin ND 75141690532 0.5 MG Orally Active 1 tablet at Once a day bedtime Tramadol HCl ND 61729888766 50 MG Orally 1 May 07May Active as directed PO 6 HRS PRN 2018, PAIN 2019 Acetaminophen- ND 70743710224 300-30 MG Orally Active not defined Codeine #3 Effexor NDC 0 100 MG Orally Active 1 tablet Once a day with food Tylenol # 3 NDC 0 300/30mg PO April 02, Active one tab every 6 hrs 2019 Results No Known Results Summary Purpose eClinicalWorks Submission
--- OUTSIDE RECORDS SUMMARY | 2019-11-17 16:21 | XMS REPORT ---
[...] End Status Dosage System Date Date Lorazepam [facility] 87025020731 1 MG Orally Once Active 1 tablet a day at bedtime as needed Acetaminophen- NDC 59119960207 300-30 MG Orally Active not Codeine #3 defined Effexor NDC 0 100 MG Orally Active 1 tablet Once a day with food Klonopin ND 92139487123 0.5 MG Orally Active 1 tablet Once a day at bedtime Zoloft ND 55549886147 100 mg Oral Active 2 tab Tylenol # 3 NDC 0 300/30mg PO April 02, Active one tab every 6 hrs 2018 Depakote ND 49761055549 500 MG Orally Active not defined Results No Known Results Summary Purpose eClinicalWorks Submission
--- OUTSIDE RECORDS SUMMARY | 2019-11-17 16:21 | XMS REPORT ---
[...] End Status Dosage System Date Date Klonopin [facility] 87031606697 0.5 MG Orally Active 1 tablet Once a day at bedtime Lorazepam [facility] 57548037554 1 MG Orally Once Active 1 tablet a day at bedtime as needed Depakote [facility] 35302540427 500 MG Orally Active not defined Acetaminophen- ND 99089126092 300-30 MG Orally Active not Codeine #3 defined Tylenol # 3 NDC 0 300/30mg PO April 02, Active one tab every 6 hrs 2018 Zoloft ND 96178710865 100 mg Oral Active 2 tab Effexor NDC 0 100 MG Orally Active 1 tablet Once a day with food Results No Known Results Summary Purpose eClinicalWorks Submission
--- OUTSIDE RECORDS SUMMARY | 2019-11-17 16:21 | XMS REPORT ---
[...] Once a day with food Depakote NDC 89667422779 500 MG Orally Active as directed Once a day Trazodone HCl NDC 15230675954 100 MG Orally Active 1 tablet at Once a day bedtime Results No Known Results Summary Purpose eClinicalWorks Submission
--- OUTSIDE RECORDS SUMMARY | 2019-11-17 16:21 | XMS REPORT ---
[...] tab every 6 hrs 2018 Zoloft ND 63746217021 100 mg Oral Active 2 tab Depakote ND 73136262698 500 MG Orally Active not defined Effexor NDC 0 100 MG Orally Active 1 tablet Once a day with food Lorazepam NDC 47045151829 1 MG Orally Once Active 1 tablet a day at bedtime as needed Klonopin ND 11306292954 0.5 MG Orally Active 1 tablet Once a day at bedtime Acetaminophen- NDC 74465860216 300-30 MG Orally Active not Codeine #3 defined Tylenol # 3 NDC 0 300/30mg 1 PO Q May 07May Active one tab 6 hrs prn pain 2018 Results No Known Results Summary Purpose eClinicalWorks Submission
--- OUTSIDE RECORDS SUMMARY | 2019-11-17 16:21 | XMS REPORT ---
:1975 Author Organization eClinicalWorks Care Team Providers Name Role Phone [facility] Provider Role Unavailable Allergies No Known [...] Status Dosage System Date Date Acetaminophen- NDC 84236124718 300-30 MG Orally Active not Codeine #3 defined Results No Known Results Summary Purpose eClinicalWorks Submission
--- OUTSIDE RECORDS SUMMARY | 2019-11-17 16:21 | XMS REPORT ---
:1975 [facility] Address [address] [place] [address] Dr. Hendricks [address] [place] [id number] Care Team Providers Name Role Phone Unavailable Unavailable Unavailable Problems This patient has no known problems. Allergies, Adverse Reactions, Alerts This patient has no known allergies or adverse reactions. Medications This patient has no known medications.
--- NOTE | 2019-11-17 17:18 | RAD REPORT ---
EXAM DESCRIPTION: RAD - Chest Pa And Lat (2 Views) - 11/17/2019 5:12 pm CLINICAL HISTORY: Congestion;Cough Chest pain. COMPARISON: Chest Pa And Lat (2 Views) dated 11/14/2019; Chest Single View dated 12/23/2018; Abdomen 1 View (KUB) dated 09/12/2018; CHEST SINGLE VIEW dated 10/24/2011 FINDINGS: The lungs are clear. The heart is normal in size. No displaced fractures. IMPRESSION: No acute or concerning finding suspected.
[2019-11-17] MEDS ORDERED: IPRATROPIUM BROM 0.5MG/2.5ML ONE (17:53)
[2019-11-17] MEDS ORDERED: ALBUTEROL 2.5 MG/3 ML NEB SOL ONE (17:53)
[2019-11-17] MEDS ORDERED: ACETAMINOPHEN 325 MG TABLET ONE (18:00)
[2019-11-17 18:02] LABS: Urine Blood NEGATIVE (NEG); Urine Glucose NEGATIVE (NEG); Urine Protein NEGATIVE (NEG); Urine Specific Gravity 1.015 (1.005-1.030); Urine pH 6.5 (5.0-7.0)
--- NOTE | 2019-11-17 18:33 | ER ---
Nurse's Notes [facility] Name: Jennifer Salazar Age: 44 yrs Sex: Female : 1975 Arrival Date: 11/17/2019 Time: 16:20 Bed 20 Private MD: Diagnosis: Acute upper respiratory infection, unspecified Presentation: 11/17 16:25 Presenting complaint: Patient states: SOB, body aches, cough that began 4 days ago. Pt aa5 states "I feel dehydrated". Pt reports nausea, denies vomiting. Transition of care: patient was not received from another setting of care. Onset of symptoms was November 2019. Risk Assessment: Do you want to hurt yourself or someone else? Patient reports no desire to harm self or others. Initial Sepsis Screen: Does the patient meet any 2 criteria? No. Patient's initial sepsis screen is negative. Does the patient have a suspected source of infection? No. Patient's initial sepsis screen is negative. Care prior to arrival: None. 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 - Social history:: Smoking status: Patient uses tobacco products, smokes one-half pack cigarettes per day. - Ebola Screening: : No symptoms or risks identified at this time. Screenin:59 Abuse screen: Denies threats or abuse. Nutritional screening: No deficits noted. em Tuberculosis screening: No symptoms or risk factors identified. Fall Risk None identified. Assessment: 17:02 General: Appears in no apparent distress. comfortable, Behavior is calm, cooperative, em Denies fever. Pain: Complains of pain in "everywhere" Pain currently is 9 out of 10 on a pain scale. Neuro: Level of Consciousness is awake, alert, obeys commands, Oriented to person, place, time, situation, Appropriate for age. Cardiovascular: Capillary refill < 3 seconds Patient's skin is warm and dry. Rhythm is regular. Respiratory: Reports cough that is productive, pain with cough Airway is patent Respiratory effort is even, unlabored, Respiratory pattern is regular, symmetrical, Breath sounds are clear bilaterally. Derm: Skin is intact, is healthy with good turgor, Skin is pink, warm \\T\\ dry. Musculoskeletal: Capillary refill < 3 seconds, Range of motion: intact in all extremities. 18:00 Reassessment: Patient appears in no apparent distress at this time. Patient and/or em family updated on plan of care and expected duration. Pain level reassessed. Patient is alert, oriented x 3, equal unlabored respirations, skin warm/dry/pink. reports headache, provider notified. Vital Signs: 16:27 BP 148 / 89; Pulse 76; Resp 18 S; Temp 98.2(TE); Pulse Ox 100% on R/A; Weight 72.57 kg aa5 (R); Height 5 ft. 5 in. (165.10 cm) (R); Pain 9/10; 16:27 Body Mass Index 26.63 (72.57 kg, 165.10 cm) aa5 ED Course: 16:20 Patient arrived in ED. mr 16:25 Arm band placed on. aa5 16:26 Triage completed. aa5 16:27 Mayra Cavazos FNP-C is [facility]. kb 16:27 Terry Stewart MD is Attending Physician. kb 16:29 Waqar Trevino LVN is Primary Nurse. em 16:59 Patient has correct armband on for positive identification. Bed in low position. Call em light in reach. Side rails up X2. Adult w/ patient. 16:59 Flu and/or RSV swab sent to lab. em 17:14 Chest Pa And Lat (2 Views) XRAY In Process Unspecified. EDMS 18:35 No provider procedures requiring assistance completed. Patient did not have IV access em during this emergency room visit. Administered Medications: 17:54 Drug: Albuterol 2.5 mg Route: Inhalation; iw 17:55 Drug: AtroVENT Aerosol 0.5 mg Route: Inhalation; iw 18:07 Drug: Tylenol 650 mg Route: PO; iw 18:41 Follow up: Response: No adverse reaction em Outcome: 18:32 Discharge ordered by MD. kb 18:39 Discharged to home ambulatory, with family. em 18:39 Condition: good 18:39 Discharge instructions given to patient, Instructed on discharge instructions, follow up and referral plans. medication usage, Demonstrated understanding of instructions, follow-up care, medications, Prescriptions given X 1. 18:42 Patient left the ED. em Signatures: Dispatcher [employer] Mayra Nayak, SECURITY ATTENDANT-C SECURITY ATTENDANT-Chiquita Oliveira mr TrevinoWaqar, RN Marian Ring RN Priscila Mendez RN RN aa5
--- NOTE | 2019-11-17 18:34 | EDPHYS ---
Physician Documentation [facility] Name: Jennifer Salazar Age: 44 yrs Sex: Female : 1975 Arrival Date: 11/17/2019 Time: 16:20 Bed 20 Private MD: ED Physician Terry Stewart HPI: 11/17 16:44 This 44 yrs old Female presents to ER via Ambulatory with complaints of kb Breathing Difficulty. 16:44 The patient or guardian reports cough, that is intermittent, described as moderate, kb with no sputum, flu symptoms, low-grade fever, myalgias. Onset: The symptoms/episode began/occurred 1 week(s) ago. Severity of symptoms: At their worst the symptoms were moderate, in the emergency department the symptoms are unchanged. Modifying factors: The symptoms are alleviated by nothing, the symptoms are aggravated by nothing. Associated signs and symptoms: Pertinent positives: chest pain, with cough, with breathing, fever. The patient has not experienced similar symptoms in the past. The patient has been recently seen at the [facility] Emergency Department, this week, for unrelated complaints. Pt reports cough, congestion, fever, chills, bodyaches and chest pain with cough and deep breaths for a week. . LEAD FORMER: 16:27 LMP 11/05/2019 aa5 Historical: - Allergies: 16:27 No Known Allergies; aa5 - PMHx: 16:27 Anxiety; Bipolar disorder; Depression; Schizophrenia; aa5 - PSHx: 16:27 Appendectomy; Cholecystectomy; Hernia repair; aa5 - Immunization history:: Flu vaccine is not up to date. - Social history:: Smoking status: Patient uses tobacco products, smokes one-half pack cigarettes per day. - Ebola Screening: : No symptoms or risks identified at this time. ROS: 16:43 ENT: Negative for injury, pain, and discharge, Neck: Negative for injury, pain, and kb swelling, Abdomen/GI: Negative for abdominal pain, nausea, vomiting, diarrhea, and constipation, Back: Negative for injury and pain, MS/Extremity: Negative for injury and deformity, Skin: Negative for injury, rash, and discoloration, Neuro: Negative for headache, weakness, numbness, tingling, and seizure. 16:43 Constitutional: Positive for body aches, chills, fatigue, fever, malaise. 16:43 Cardiovascular: Positive for chest pain, with cough. 16:43 Respiratory: Positive for cough. Exam: 16:43 Constitutional: This is a well developed, well nourished patient who is awake, alert, kb and in no acute distress. Head/Face: Normocephalic, atraumatic. ENT: Nares patent. No nasal discharge, no septal abnormalities noted. Tympanic membranes are normal and external auditory canals are clear. Oropharynx with no redness, swelling, or masses, exudates, or evidence of obstruction, uvula midline. Mucous membranes moist. Neck: Trachea midline, no thyromegaly or masses palpated, and no cervical lymphadenopathy. Supple, full range of motion without nuchal rigidity, or vertebral point tenderness. No Meningismus. Chest/axilla: Normal chest wall appearance and motion. Nontender with no deformity. No lesions are appreciated. Cardiovascular: Regular rate and rhythm with a normal S1 and S2. No gallops, murmurs, or rubs. Normal PMI, no JVD. No pulse deficits. Respiratory: Lungs have equal breath sounds bilaterally, clear to auscultation and percussion. No rales, rhonchi or wheezes noted. No increased work of breathing, no retractions or nasal flaring. Abdomen/GI: Soft, non-tender, with normal bowel sounds. No distension or tympany. No guarding or rebound. No evidence of tenderness throughout. Back: No spinal tenderness. No costovertebral tenderness. Full range of motion. Skin: Warm, dry with normal turgor. Normal color with no rashes, no lesions, and no evidence of cellulitis. MS/ Extremity: Pulses equal, no cyanosis. Neurovascular intact. Full, normal range of motion. Neuro: Awake and alert, GCS 15, oriented to person, place, time, and situation. Cranial nerves II-XII grossly intact. Motor strength 5/5 in all extremities. Sensory grossly intact. Cerebellar exam normal. Normal gait. Vital Signs: 16:27 BP 148 / 89; Pulse 76; Resp 18 S; Temp 98.2(TE); Pulse Ox 100% on R/A; Weight 72.57 kg aa5 (R); Height 5 ft. 5 in. (165.10 cm) (R); Pain 9/10; 16:27 Body Mass Index 26.63 (72.57 kg, 165.10 cm) aa5 MDM: 16:28 Patient medically screened. kb 16:43 Data reviewed: vital signs, nurses notes. Data interpreted: Pulse oximetry: on room air kb is 100 %. Interpretation: normal. 18:31 Counseling: I had a detailed discussion with the patient and/or guardian regarding: the kb historical points, exam findings, and any diagnostic results supporting the discharge/admit diagnosis, lab results, radiology results, the need for outpatient follow up, a family practitioner, to return to the emergency department if symptoms worsen or persist or if there are any questions or concerns that arise at home. 11/17 16:43 Order name: Flu; Complete Time: 17:47 kb 11/17 17:05 Order name: Urine Dipstick--Ancillary (enter results); Complete Time: 18:04 bd 11/17 16:43 Order name: Chest Pa And Lat (2 Views) XRAY; Complete Time: 17:40 kb 11/17 17:05 Order name: Urine --Ancillary (enter results); Complete Time: 18:04 bd Administered Medications: 17:54 Drug: Albuterol 2.5 mg Route: Inhalation; iw 17:55 Drug: AtroVENT Aerosol 0.5 mg Route: Inhalation; iw 18:07 Drug: Tylenol 650 mg Route: PO; iw 18:41 Follow up: Response: No adverse reaction em Disposition: 11/18 06:37 Co-signature as Attending Physician, Terry Stewart MD I agree with the assessment and kdr plan of care. Disposition: 11/17/19 18:32 Discharged to Home. Impression: Acute upper respiratory infection, unspecified. - Condition is Stable. - Discharge Instructions: Upper Respiratory Infection, Adult, [id number], Viral Respiratory Infection, [id number]-Gv-[id number]. - Prescriptions for Albuterol Sulfate 90 mcg/actuation - inhale 1-2 puff by INHALATION route every 4-6 hours; 1 Inhaler. - Medication Reconciliation Form, Thank You Letter, Antibiotic Education, Prescription Opioid Use form. - Follow up: Emergency Department; When: As needed; Reason: Worsening of condition. Follow up: Private Physician; When: 2 - 3 days; Reason: Recheck today's complaints, Continuance of care, Re-evaluation by your physician. Signatures: Dispatcher [employer] Mayra Nayak, TELEPHONE EXCHANGE OPERATOR-C TELEPHONE EXCHANGE OPERATOR-Ckb Terry Stewart MD MD kdr Munoz, Edgar, RN RN Marian Lira, ALEKSEY RN iw Priscila Freedman, ALEKSEY RN aa5 Corrections: (The following items were deleted from the chart) 11/17 18:42 18:32 11/17/2019 18:32 Discharged to Home. Impression: Acute upper respiratory em infection, unspecified. Condition is Stable. Forms are Medication Reconciliation Form, Thank You Letter, Antibiotic Education, Prescription Opioid Use. Follow up: Emergency Department; When: As needed; Reason: Worsening of condition. Follow up: Private Physician; When: 2 - 3 days; Reason: Recheck today's complaints, Continuance of care, Re-evaluation by your physician. kb
[2019-11-17 19:19] VITALS: BP 148/89; TEMP 98.2; O2SAT 100
== END 2019-11-17 18:42 | disposition home or self-care (01) ==
LOC: ER 16:19
DX: J06.9 Acute upper respiratory infection, unspecified (principal); F17.210 Nicotine dependence, cigarettes, uncomplicated
CPT/HCPCS: 71046; 81003; 81025; 87804; 99284

== ENCOUNTER 2020-01-29 23:07 | Emergency (ER) | payer OTHER ==
--- OUTSIDE RECORDS SUMMARY | 2020-01-29 23:09 | XMS REPORT ---
[...] Once a day with food Depakote NDC 60079695555 500 MG Orally Active as directed Once a day Trazodone HCl NDC 74890458743 100 MG Orally Active 1 tablet at Once a day bedtime Results No Known Results Summary Purpose eClinicalWorks Submission
--- OUTSIDE RECORDS SUMMARY | 2020-01-29 23:10 | XMS REPORT ---
[...] End Status Dosage System Date Date Klonopin [facility] 58463496726 0.5 MG Orally Active 1 tablet Once a day at bedtime Lorazepam [facility] 70230891320 1 MG Orally Once Active 1 tablet a day at bedtime as needed Depakote [facility] 43626146849 500 MG Orally Active not defined Acetaminophen- ND 10459860730 300-30 MG Orally Active not Codeine #3 defined Tylenol # 3 NDC 0 300/30mg PO April 02, Active one tab every 6 hrs 2018 Zoloft ND 20515717064 100 mg Oral Active 2 tab Effexor NDC 0 100 MG Orally Active 1 tablet Once a day with food Results No Known Results Summary Purpose eClinicalWorks Submission
--- OUTSIDE RECORDS SUMMARY | 2020-01-29 23:10 | XMS REPORT ---
[...] End Status Dosage System Date Date Depakote [facility] 79189994462 500 MG Orally Active not defined Lorazepam ND 89503266710 1 MG Orally Once Active 1 tablet at a day bedtime as needed Zoloft ND 41563317076 100 mg Oral Active 2 tab Klonopin ND 46986479363 0.5 MG Orally Active 1 tablet at Once a day bedtime Tramadol HCl ND 08637955025 50 MG Orally 1 May 07May Active as directed PO 6 HRS PRN 2018, PAIN 2019 Acetaminophen- ND 43425581376 300-30 MG Orally Active not defined Codeine #3 Effexor NDC 0 100 MG Orally Active 1 tablet Once a day with food Tylenol # 3 NDC 0 300/30mg PO April 02, Active one tab every 6 hrs 2019 Results No Known Results Summary Purpose eClinicalWorks Submission
--- OUTSIDE RECORDS SUMMARY | 2020-01-29 23:10 | XMS REPORT ---
[...] End Status Dosage System Date Date Lorazepam [facility] 77315704476 1 MG Orally Once Active 1 tablet a day at bedtime as needed Acetaminophen- NDC 67429142570 300-30 MG Orally Active not Codeine #3 defined Effexor NDC 0 100 MG Orally Active 1 tablet Once a day with food Klonopin ND 68211328044 0.5 MG Orally Active 1 tablet Once a day at bedtime Zoloft ND 31729456542 100 mg Oral Active 2 tab Tylenol # 3 NDC 0 300/30mg PO April 02, Active one tab every 6 hrs 2018 Depakote ND 04149075720 500 MG Orally Active not defined Results No Known Results Summary Purpose eClinicalWorks Submission
--- OUTSIDE RECORDS SUMMARY | 2020-01-29 23:10 | XMS REPORT ---
:1975 Author Organization eClinicalWorks Care Team Providers Name Role Phone [facility] Provider Role Unavailable Allergies No Known Allergies [...] Status Dosage System Date Date Acetaminophen- NDC 01704841359 300-30 MG Orally Active not Codeine #3 defined Results No Known Results Summary Purpose eClinicalWorks Submission
--- OUTSIDE RECORDS SUMMARY | 2020-01-29 23:10 | XMS REPORT ---
[...] tab every 6 hrs 2018 Zoloft ND 29864140555 100 mg Oral Active 2 tab Depakote ND 78793508645 500 MG Orally Active not defined Effexor NDC 0 100 MG Orally Active 1 tablet Once a day with food Lorazepam NDC 41873425723 1 MG Orally Once Active 1 tablet a day at bedtime as needed Klonopin ND 83077840563 0.5 MG Orally Active 1 tablet Once a day at bedtime Acetaminophen- NDC 83834066601 300-30 MG Orally Active not Codeine #3 defined Tylenol # 3 NDC 0 300/30mg 1 PO Q May 07May Active one tab 6 hrs prn pain 2018 Results No Known Results Summary Purpose eClinicalWorks Submission
[2020-01-29] MEDS ORDERED: MORPHINE 4 MG/ML SYR ONE (23:38)
[2020-01-29] MEDS ORDERED: ONDANSETRON 4 MG/2 ML VIAL ONE (23:38)
[2020-01-29 23:39] LABS: Urine Blood TRACE (NEG); Urine Glucose NEGATIVE (NEG); Urine Protein TRACE (NEG); Urine Specific Gravity >1.030 (1.005-1.030); Urine pH 5.5 (5.0-7.0)
[2020-01-29 23:48] LABS: Absolute Lymphocytes (CBC) 2.8 K/uL (0.7-4.9); Basophils % 0.8 % (0-1.3); Hematocrit 31.6 % (36.0-45.0); Lymphocytes % 44.2 % (15.3-44.8); MPV 7.9 fL (7.6-11.3); RBC Red Blood Cell Count 4.65 M/uL (3.86-4.86)
[2020-01-29] MEDS ORDERED: NA CHLORIDE 0.9% 1,000 ML ONE (23:50)
[2020-01-30 00:04] LABS: ALT/SGPT 16 U/L (12-78); AST/SGOT 14 U/L (15-37); Albumin 3.8 g/dL (3.4-5.0); Alkaline Phosphatase 56 U/L (45-117); BUN Blood Urea Nitrogen 13 mg/dL (7-18); Bicarbonate 27 mmol/L (21-32); Bilirubin Direct < 0.1 mg/dL (0-0.2); Bilirubin Total 0.2 mg/dL (0.2-1.0); Glucose Level 81 mg/dL (74-106); Lipase 153 U/L (73-393); Potassium 3.5 mmol/L (3.5-5.1); Protein, Total 7.3 g/dL (6.4-8.2); Sodium Level 138 mmol/L (136-145)
[2020-01-30 00:16] LABS: Anisocytosis 1+; Blood Morphology Comment NOTED (NOT SEEN); Elliptocytes 1+; Hypochromasia 1+; Platelet Estimate ADEQ; White Blood Cell Scan OK
[2020-01-30 01:19] LABS: Urine Amorphous Sediment 2+ /HPF (NONE SEEN); Urine Bacteria >50 /HPF (<20); Urine Mucus 1+ /HPF (NONE SEEN); Urine RBC <5 /HPF (NONE SEEN)
[2020-01-30] MEDS ORDERED: KETOROLAC 30 MG/ML INJ ONE (01:41)
--- NOTE | 2020-01-30 02:00 | RAD REPORT ---
EXAM DESCRIPTION: CT - Abdomen Pelvis W Contrast - 01/30/2020 12:51 am CLINICAL HISTORY: right flank pain, abdominal pain COMPARISON: Abdomen Pelvis W Contrast dated 07/04/2019 TECHNIQUE: Biphasic, helical CT imaging of the abdomen and pelvis was performed following 100 ml non -ionic IV contrast. No oral contrast administered. All CT scans are performed using dose optimization technique as appropriate and may include automated exposure control or mA/KV adjustment according to patient size. FINDINGS: No suspicious findings in the lung bases. The liver, spleen, and pancreas show no suspicious findings. Gallbladder is absent. Biliary tree is d ilated to 11 mm. The intrahepatic and extrahepatic biliary tree dilatation are not outside of normal range for post cholecystectomy status. Duct stones can be occult. Symmetric renal function is seen with no hydronephrosis or suspicious renal mass. No pyelonephritis o r acute parenchymal process. No bladder abnormalities. No adrenal abnormalities. No uterine abnormali ty. 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 Numerous phleboliths are seen in the pelvic floor. No dilated bowel loops or bowel wall thickening. Patient is status post appendectomy. No free air, fr ee fluid or inflammatory stranding. No hernia, mass or bulky lymphadenopathy. No suspicious bony findings. IMPRESSION: No hydronephrosis, obstructing calculus or acute finding. No pyelonephritis or acute parenchymal process. Biliary tree is dilated but similar to comparison. This is not outside of normal range for a post cho lecystectomy patient. Duct stones can be occult. Correlation is needed with biliary tree clinical or laboratory obstructive findings. No acute GI findings. Patient is status post appendectomy.
[2020-01-30] MEDS ORDERED: FENTANYL CITR 100 MCG/2 ML ONE (02:11)
--- NOTE | 2020-01-30 02:54 | ER ---
Nurse's Notes [facility] Name: Jennifer Salazar Age: 44 yrs Sex: Female : 1975 Arrival Date: 01/29/2020 Time: 23:08 Bed 19 Private MD: Diagnosis: Urinary tract infection, site not specified;Other abdominal pain Presentation: 01/28 23:20 Chief complaint: Patient states: I am having right back pain going to my right upper rr5 area started 2 days ago. loss of appetite. have white discharge in my vagina. denies vomiting or diarrhea. Coronavirus screen: The patient has NOT traveled to a country currently being monitored by the [facility] within the last 14 days. Proceed with normal triage procedures. Ebola Screen: Patient negative for fever greater than or equal to 101.5 degrees Fahrenheit, and additional compatible Ebola Virus Disease symptoms Patient denies exposure to infectious person. Patient denies travel to an Ebola-affected area in the 21 days before illness onset. Initial Sepsis Screen: Does the patient meet any 2 criteria? No. Patient's initial sepsis screen is negative. Does the patient have a suspected source of infection? Yes: Dysuria/Frequency/Urgency/UTI. Risk Assessment: Do you want to hurt yourself or someone else? Patient reports no desire to harm self or others. Onset of symptoms was January 27, 2020. 23:20 Method Of Arrival: Ambulatory rr5 23:20 Acuity: BECKY 3 rr5 Triage Assessment: 23:20 Pain: Also complains of inability to perform activities of daily living. rr5 23:30 Headache History: The patient has had previous headaches and this one is more severe rr5 than previous episodes. [employer]: 01/29 00:18 LMP 12/2019 rr5 Historical: - Allergies: 01/28 23:10 Naproxen; rr5 - Home Meds: 23:10 Ambien Oral [Active]; Depakote Oral [Active]; Effexor Oral [Active]; Haldol Oral rr5 [Active]; Trazodone Oral [Active]; Xanax 2 mg Oral tab 1 tab 3 times per day [Active]; - PMHx: 23:10 Anxiety; Bipolar disorder; Schizophrenia; Depression; rr5 - PSHx: 23:10 Appendectomy; Cholecystectomy; rr5 - Immunization history:: Adult Immunizations up to date. - Social history:: Smoking status: Patient reports the use of cigarette tobacco products, smokes two packs cigarettes per day. Screenin:45 Abuse screen: Denies threats or abuse. Denies injuries from another. Nutritional rr5 screening: No deficits noted. Tuberculosis screening: No symptoms or risk factors identified. Fall Risk IV access (20 points). Total Borja Fall Scale indicates No Risk (0-24 pts). Assessment: 23:20 General: Appears in no apparent distress. uncomfortable, Behavior is calm, cooperative, rr5 appropriate for age. 23:20 Pain: Complains of pain in right flank Pain radiates to right upper quadrant Pain rr5 currently is 10 out of 10 on a pain scale. Quality of pain is described as aching, Pain began 2-3 days ago. Is intermittent. Neuro: Level of Consciousness is awake, alert, obeys commands, Oriented to person, place, time, situation, Appropriate for age Reports headache. Cardiovascular: Capillary refill < 3 seconds Patient's skin is warm and dry. Respiratory: Airway is patent Respiratory effort is even, unlabored, Respiratory pattern is regular, symmetrical. GI: Abdomen is round Reports upper abdominal pain, nausea, Patient currently denies diarrhea. : Reports discharge, from vagina that is white. EENT: No signs and/or symptoms were reported regarding the EENT system. Derm: Skin is intact, is healthy with good turgor, Skin temperature is warm. Musculoskeletal: Circulation, motion, and sensation intact. Capillary refill < 3 seconds. 01/29 00:16 Reassessment: Patient appears in no apparent distress at this time. Patient is alert, rr5 oriented x 3, equal unlabored respirations, skin warm/dry/pink. awaiting for CT procedure. 01:30 Reassessment: Patient appears in no apparent distress at this time. Patient and/or rr5 family updated on plan of care and expected duration. Pain level reassessed. awaiting for CT result. ED provider aware patient complaining of flank pain, with order made and carried out. Patient states symptoms have not improved. 02:20 Reassessment: Patient appears in no apparent distress at this time. Patient is alert, rr5 oriented x 3, equal unlabored respirations, skin warm/dry/pink. Patient states feeling better. Patient states symptoms have improved. 03:10 Reassessment: Patient appears in no apparent distress at this time. Patient is alert, rr5 oriented x 3, equal unlabored respirations, skin warm/dry/pink. discharge instruction given and explained without complaints made. Patient denies pain at this time. Patient states feeling better. Patient states symptoms have improved. Vital Signs: 01/28 23:20 BP 104 / 73; Pulse 75; Resp 19; Temp 98.3; Pulse Ox 100% ; Weight 72.57 kg; Height 5 rr5 ft. 5 in. (165.10 cm); Pain 10/10; 01/29 00:10 BP 111 / 81; Pulse 79; Resp 16; Pulse Ox 98% on R/A; rr5 01:00 BP 125 / 70; Pulse 75; Resp 17; Pulse Ox 99% ; Pain 10/10; rr5 02:00 BP 126 / 81; Pulse 79; Resp 20; Pulse Ox 99% on R/A; Pain 10/10; rr5 03:00 BP 119 / 70; Pulse 80; Resp 18; Temp 98; Pulse Ox 99% ; Pain 0/10; rr5 01/28 23:20 Body Mass Index 26.63 (72.57 kg, 165.10 cm) rr5 ED Course: 01/28 23:08 Patient arrived in ED. es 23:15 José Medina PA is PHCP. jmm 23:15 Bruce Jackson MD is Attending Physician. jmm 23:19 Micah Boyd RN is Primary Nurse. rr5 23:20 Arm band placed on right wrist. rr5 23:23 Triage completed. rr5 23:30 Patient has correct armband on for positive identification. Bed in low position. Call rr5 light in reach. Pulse ox on. NIBP on. 23:40 Inserted saline lock: 20 gauge in right antecubital area, using aseptic technique. rr5 Blood collected. 01/29 00:51 CT Abd/Pelvis - IV Contrast Only In Process Unspecified. EDMS 03:00 No provider procedures requiring assistance completed. IV discontinued, intact, rr5 bleeding controlled, No redness/swelling at site. Pressure dressing applied. Administered Medications: 01/28 23:40 Drug: Zofran (Ondansetron) 4 mg Route: IVP; Site: right antecubital; rr5 01/29 01:00 Follow up: Response: No adverse reaction rr5 01/28 23:42 Drug: morphine 4 mg {Note: rass 0.} Route: IVP; Site: right antecubital; rr5 01/29 01:40 Follow up: Response: No change in condition; Pain is unchanged, physician notified; rr5 RASS: Alert and Calm (0) 01/28 23:43 Drug: NS 0.9% 1000 ml Route: IV; Rate: 1 bolus; Site: right antecubital; rr5 01/29 00:50 Follow up: Response: No adverse reaction; IV Status: Completed infusion; IV Intake: rr5 1000ml 01:42 Drug: TORadol 30 mg Route: IVP; Site: right antecubital; rr5 02:00 Follow up: Response: No adverse reaction; No change in condition; Pain is unchanged, rr5 physician notified 02:10 Drug: fentaNYL (PF) 50 mcg {Note: rass 0.} Route: IVP; Site: right antecubital; rr5 02:30 Follow up: Response: No adverse reaction; RASS: Alert and Calm (0) rr5 Intake: 00:50 IV: 1000ml; Total: 1000ml. rr5 Outcome: 02:53 Discharge ordered by MD. tinoco 03:10 Discharged to home ambulatory. rr5 03:10 Condition: stable 03:10 Discharge instructions given to patient, Instructed on discharge instructions, follow up and referral plans. medication usage, Demonstrated understanding of instructions, follow-up care, medications, Prescriptions given X 2. 03:12 Patient left the ED. rr5 Signatures: Dispatcher [employer] José Mon PA PA jmm Salyer, Edna es Roque, Raymond, RN RN rr5
--- NOTE | 2020-01-30 02:54 | EDPHYS ---
Physician Documentation [facility] Name: Jennifer Salazar Age: 44 yrs Sex: Female : 1975 Arrival Date: 01/29/2020 Time: 23:08 Bed 19 Private MD: ED Physician Bruce Jackson HPI: 01/28 23:16 This 44 yrs old Female presents to ER via Ambulatory with complaints of jmm Headache, Flank Pain, Back Pain, Abdominal Pain. 23:16 The patient presents with abdominal pain in the lower abdomen. Onset: The jmm symptoms/episode began/occurred gradually, 2 day(s) ago. The symptoms radiate to the right flank. Associated signs and symptoms: Pertinent positives: nausea and vomiting. The symptoms are described as achy. This is a 44 year old female with a history of anxiety, schizophrenia that presents to the ED with complaints of right flank pain which radiates to her abdomen beginning approx 2 days ago. . 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 - Social history:: Smoking status: Patient reports the use of cigarette tobacco products, smokes two packs cigarettes per day. ROS: 23:16 Constitutional: Negative for fever, chills, and weight loss, Cardiovascular: Negative jmm for chest pain, palpitations, and edema, Respiratory: Negative for shortness of breath, cough, wheezing, and pleuritic chest pain. 23:16 Abdomen/GI: Positive for abdominal pain, nausea and vomiting. 23:16 Back: Positive for flank pain, on the right. 23:16 Neuro: Positive for headache. 23:16 All other systems are negative. Exam: 23:16 Constitutional: This is a well developed, well nourished patient who is awake, alert, jmm and in no acute distress. Head/Face: atraumatic. Eyes: EOMI, no conjunctival erythema appreciated ENT: Moist Mucus Membranes Neck: Trachea midline, Supple Chest/axilla: Normal chest wall appearance and motion. Cardiovascular: Regular rate and rhythm. No edema appreciated Respiratory: Normal respirations, no respiratory distress appreciated 23:16 Abdomen/GI: Inspection: abdomen appears normal, Bowel sounds: normal, Palpation: soft, mild abdominal tenderness, in the right lower quadrant. 23:16 Back: CVA tenderness, that is mild, is noted on the right. 23:16 Musculoskeletal/extremity: ROM: intact in all extremities. 23:16 Neuro: Orientation: is normal, Mentation: is normal, Memory: is normal. 23:16 Psych: Behavior/mood is pleasant, cooperative. Vital Signs: 23:20 BP 104 / 73; Pulse 75; Resp 19; Temp 98.3; Pulse Ox 100% ; Weight 72.57 kg; Height 5 rr5 ft. 5 in. (165.10 cm); Pain 10/10; 01/29 00:10 BP 111 / 81; Pulse 79; Resp 16; Pulse Ox 98% on R/A; rr5 01:00 BP 125 / 70; Pulse 75; Resp 17; Pulse Ox 99% ; Pain 10/10; rr5 02:00 BP 126 / 81; Pulse 79; Resp 20; Pulse Ox 99% on R/A; Pain 10/10; rr5 03:00 BP 119 / 70; Pulse 80; Resp 18; Temp 98; Pulse Ox 99% ; Pain 0/10; rr5 01/28 23:20 Body Mass Index 26.63 (72.57 kg, 165.10 cm) rr5 MDM: 01/28 23:16 Patient medically screened. [facility] 01/29 02:32 Data reviewed: vital signs, nurses notes. Counseling: I had a detailed discussion with jmm the patient and/or guardian regarding: the historical points, exam findings, and any diagnostic results supporting the discharge/admit diagnosis, lab results, radiology results, the need for outpatient follow up, to return to the emergency department if symptoms worsen or persist or if there are any questions or concerns that arise at home. ED course: Patient is alert and non toxic in appearance in the ED. Patient advised to follow up with pcp and otherwise given strict return precautions. Patient understood and agrees with the plan of care. . 02:53 ED course: SOCIAL SCIENCES INSTRUCTOR reviewed. . [facility] 01/28 23:31 Order name: Basic Metabolic Panel; Complete Time: 00:08 [facility] 01/28 23:31 Order name: CBC with Diff; Complete Time: 00:21 [facility] 01/28 23:31 Order name: Creatinine for Radiology; Complete Time: 00:08 [facility] 01/28 23:31 Order name: Hepatic Function; Complete Time: 00:08 [facility] 01/28 23:31 Order name: Lipase; Complete Time: 00:08 [facility] 01/28 23:33 Order name: Urine Dipstick--Ancillary (enter results); Complete Time: 23:41 [facility] 01/28 23:31 Order name: CT Abd/Pelvis - IV Contrast Only; Complete Time: 02:11 [facility] 01/28 23:33 Order name: Urine --Ancillary (enter results); Complete Time: 23:41 [facility] 01/29 00:16 Order name: CBC Smear Scan; Complete Time: 00:21 [facility] 01/29 00:50 Order name: Urine Microscopic Only; Complete Time: 01:19 lp1 01/29 01:22 Order name: Urine Culture [facility] 01/28 23:31 Order name: IV Saline Lock; Complete Time: 23:44 [facility] 01/28 23:31 Order name: Labs collected and sent; Complete Time: 23:44 [facility] Administered Medications: 01/28 23:40 Drug: Zofran (Ondansetron) 4 mg Route: IVP; Site: right antecubital; rr5 01/29 01:00 Follow up: Response: No adverse reaction rr5 01/28 23:42 Drug: morphine 4 mg {Note: rass 0.} Route: IVP; Site: right antecubital; rr5 01/29 01:40 Follow up: Response: No change in condition; Pain is unchanged, physician notified; rr5 RASS: Alert and Calm (0) 01/28 23:43 Drug: NS 0.9% 1000 ml Route: IV; Rate: 1 bolus; Site: right antecubital; rr5 01/29 00:50 Follow up: Response: No adverse reaction; IV Status: Completed infusion; IV Intake: rr5 1000ml 01:42 Drug: TORadol 30 mg Route: IVP; Site: right antecubital; rr5 02:00 Follow up: Response: No adverse reaction; No change in condition; Pain is unchanged, rr5 physician notified 02:10 Drug: fentaNYL (PF) 50 mcg {Note: rass 0.} Route: IVP; Site: right antecubital; rr5 02:30 Follow up: Response: No adverse reaction; RASS: Alert and Calm (0) rr5 Disposition: 01/30/20 02:53 Discharged to Home. Impression: Urinary tract infection, site not specified, Other abdominal pain. - Condition is Stable. - Discharge Instructions: Abdominal Pain, Adult, Urinary Tract Infection, Adult. - Prescriptions for Cephalexin 500 mg Oral Capsule - take 1 capsule by ORAL route every 12 hours for 10 days; 20 capsule. Tylenol- Codeine #3 300-30 mg Oral Tablet - take 2 tablet by ORAL route every 6 hours As needed; 6 tablet. - Medication Reconciliation Form, Thank You Letter, Antibiotic Education, Prescription Opioid Use form. - Follow up: Private Physician; When: 2 - 3 days; Reason: Recheck today's complaints, Continuance of care, Re-evaluation by your physician. Addendum: 01/31/2020 18:04 Co-signature as Attending Physician, Bruce Jackson MD I agree with the assessment and c parker plan of care. Signatures: Dispatcher [employer] EDBruce Galvez MD MD cha Mickail, Joel, PA PA jmm Roque, Raymond, RN RN rr5 Corrections: (The following items were deleted from the chart) 01/29 02:53 02:32 Medical screen evaluation completed. EMTALA emergency medical condition absent. earnest tinoco 03:12 02:53 01/30/2020 02:53 Discharged to Home. Impression: Urinary tract infection, site rr5 not specified; Other abdominal pain. Condition is Stable. Forms are Medication Reconciliation Form, Thank You Letter, Antibiotic Education, Prescription Opioid Use. Follow up: Private Physician; When: 2 - 3 days; Reason: Recheck today's complaints, Continuance of care, Re-evaluation by your physician. earnest
[2020-01-30 03:18] VITALS: TEMP 98.3
[2020-01-30 03:21] VITALS: BP 125/70; O2SAT 99
== END 2020-01-30 03:12 | disposition home or self-care (01) ==
LOC: ER 23:07
DX: N39.0 Urinary tract infection, site not specified (principal); F31.9 Bipolar disorder, unspecified; F17.210 Nicotine dependence, cigarettes, uncomplicated; F20.9 Schizophrenia, unspecified; Z88.6 Allergy status to analgesic agent
CPT/HCPCS: 96361; 87088; 85025; 87086; 80048; 36415; 81025; 80076; 83690; 74177; 96375; 96374; 99284; Q9967; J3010; J7030; J2405; 81003; 81015

== ENCOUNTER 2020-02-13 09:56 | Emergency (ER) | payer OTHER ==
--- OUTSIDE RECORDS SUMMARY | 2020-02-13 09:58 | XMS REPORT ---
[...] End Status Dosage System Date Date Lorazepam [facility] 2001 04497365640 1 MG Orally Once Active 1 tablet a day at bedtime as needed Acetaminophen- NDC 19957215915 300-30 MG Orally Active not Codeine #3 defined Effexor NDC 0 100 MG Orally Active 1 tablet Once a day with food Klonopin ND 41439160578 0.5 MG Orally Active 1 tablet Once a day at bedtime Zoloft ND 04960509890 100 mg Oral Active 2 tab Tylenol # 3 NDC 0 300/30mg PO April 02, Active one tab every 6 hrs 2018 Depakote ND 09774539648 500 MG Orally Active not defined Results No Known Results Summary Purpose eClinicalWorks Submission
--- OUTSIDE RECORDS SUMMARY | 2020-02-13 09:58 | XMS REPORT ---
[...] Once a day with food Depakote NDC 90484782755 500 MG Orally Active as directed Once a day Trazodone HCl NDC 69902822418 100 MG Orally Active 1 tablet at Once a day bedtime Results No Known Results Summary Purpose eClinicalWorks Submission
--- OUTSIDE RECORDS SUMMARY | 2020-02-13 09:58 | XMS REPORT ---
:1975 Author Organization eClinicalWorks Care Team Providers Name Role Phone [facility] Provider Role Unavailable Allergies No Known Allergies [...] Status Dosage System Date Date Acetaminophen- NDC 87677477376 300-30 MG Orally Active not Codeine #3 defined Results No Known Results Summary Purpose eClinicalWorks Submission
--- OUTSIDE RECORDS SUMMARY | 2020-02-13 09:58 | XMS REPORT ---
[...] tab every 6 hrs 2018 Zoloft ND 59871928387 100 mg Oral Active 2 tab Depakote ND 45553182374 500 MG Orally Active not defined Effexor NDC 0 100 MG Orally Active 1 tablet Once a day with food Lorazepam NDC 52604582934 1 MG Orally Once Active 1 tablet a day at bedtime as needed Klonopin ND 88668092250 0.5 MG Orally Active 1 tablet Once a day at bedtime Acetaminophen- NDC 27466418699 300-30 MG Orally Active not Codeine #3 defined Tylenol # 3 NDC 0 300/30mg 1 PO Q May 07May Active one tab 6 hrs prn pain 2018 Results No Known Results Summary Purpose eClinicalWorks Submission
--- OUTSIDE RECORDS SUMMARY | 2020-02-13 09:58 | XMS REPORT ---
[...] Dosage System Date Date Depakote [facility] 92341134701 500 MG Orally Active not defined Lorazepam ND 82624083701 1 MG Orally Once Active 1 tablet at a day bedtime as needed Zoloft ND 28132759468 100 mg Oral Active 2 tab Klonopin ND 98872453108 0.5 MG Orally Active 1 tablet at Once a day bedtime Tramadol HCl ND 84433063904 50 MG Orally 1 May 07May Active as directed PO 6 HRS PRN 2018, PAIN 2019 Acetaminophen- ND 03462009925 300-30 MG Orally Active not defined Codeine #3 Effexor NDC 0 100 MG Orally Active 1 tablet Once a day with food Tylenol # 3 NDC 0 300/30mg PO April 02, Active one tab every 6 hrs 2019 Results No Known Results Summary Purpose eClinicalWorks Submission
--- OUTSIDE RECORDS SUMMARY | 2020-02-13 09:59 | XMS REPORT ---
[...] End Status Dosage System Date Date Klonopin [facility] 82838778041 0.5 MG Orally Active 1 tablet Once a day at bedtime Lorazepam [facility] 78890342820 1 MG Orally Once Active 1 tablet a day at bedtime as needed Depakote [facility] 20757572078 500 MG Orally Active not defined Acetaminophen- ND 79964267906 300-30 MG Orally Active not Codeine #3 defined Tylenol # 3 NDC 0 300/30mg PO April 02, Active one tab every 6 hrs 2018 Zoloft ND 86568175902 100 mg Oral Active 2 tab Effexor NDC 0 100 MG Orally Active 1 tablet Once a day with food Results No Known Results Summary Purpose eClinicalWorks Submission
[2020-02-13] MEDS ORDERED: LORazepam 2 MG/ML VIAL ONE (10:23)
[2020-02-13 10:44] LABS: Absolute Lymphocytes (CBC) 1.7 K/uL (0.7-4.9); Basophils % 0.7 % (0-1.3); Hematocrit 35.5 % (36.0-45.0); Lymphocytes % 28.3 % (15.3-44.8); MPV 7.5 fL (7.6-11.3); RBC Red Blood Cell Count 5.04 M/uL (3.86-4.86)
[2020-02-13 10:48] LABS: Protime INR 0.89
[2020-02-13 11:07] LABS: ALT/SGPT 16 U/L (12-78); AST/SGOT 12 U/L (15-37); Albumin 3.9 g/dL (3.4-5.0); Alkaline Phosphatase 58 U/L (45-117); BUN Blood Urea Nitrogen 10 mg/dL (7-18); Bicarbonate 25 mmol/L (21-32); Bilirubin Direct < 0.1 mg/dL (0-0.2); Bilirubin Total 0.3 mg/dL (0.2-1.0); Glucose Level 97 mg/dL (74-106); Magnesium 2.3 mg/dL (1.8-2.4); NT PRO-BNP 284 pg/mL (<125); Potassium 3.7 mmol/L (3.5-5.1); Protein, Total 7.6 g/dL (6.4-8.2); Sodium Level 140 mmol/L (136-145); Troponin (Emerg Dept Use Only) < 0.02 ng/mL (0.0-0.045)
--- NOTE | 2020-02-13 11:27 | EDPHYS ---
Physician Documentation [facility] Name: Jennifer Salazar Age: 44 yrs Sex: Female : 1975 Arrival Date: 02/13/2020 Time: 09:57 Bed 17 Private MD: ED Physician Tray Cheng HPI: 02/12 10:25 This 44 yrs old Female presents to ER via Ambulatory with complaints of Chest jr8 Pain. 10:25 The patient or guardian reports chest pain that is located primarily in the substernal jr8 area. Onset: acutely, today. The pain does not radiate. Associated signs and symptoms: Pertinent positives: abdominal pain. The chest pain is described as a pressure. Duration: The patient or guardian reports a single episode, that is still ongoing. Modifying factors: The symptoms are alleviated by nothing. the symptoms are aggravated by nothing. Severity of pain: At its worst the pain was moderate in the emergency department the pain is unchanged. The patient has experienced similar episodes in the past, several times. The patient has not recently seen a physician. Patient with history of bipolar disorder and anxiety. Started to have CP and shortness of breath over COVID. Denies fever or URI symptoms. Historical: - Allergies: 10:16 Naproxen; em - Home Meds: 10:16 Ambien Oral [Active]; Depakote Oral [Active]; Effexor Oral [Active]; Haldol Oral em [Active]; Trazodone Oral [Active]; Xanax 2 mg Oral tab 1 tab 3 times per day [Active]; - PMHx: 10:16 Anxiety; Depression; Bipolar disorder; Schizophrenia; em - PSHx: 10:16 Appendectomy; Cholecystectomy; em - Immunization history:: Adult Immunizations unknown. - Social history:: Smoking status: Patient reports the use of cigarette tobacco products, denies chronic smoking, but will smoke occasionally. ROS: 10:25 Eyes: Negative for injury, pain, redness, and discharge, ENT: Negative for injury, jr8 pain, and discharge, Neck: Negative for injury, pain, and swelling, Abdomen/GI: Negative for abdominal pain, nausea, vomiting, diarrhea, and constipation, Back: Negative for injury and pain, MS/Extremity: Negative for injury and deformity, Skin: Negative for injury, rash, and discoloration, Neuro: Negative for headache, weakness, numbness, tingling, and seizure. 10:25 Cardiovascular: Positive for chest pain, Negative for edema, orthopnea, palpitations, paroxysmal nocturnal dyspnea. 10:25 Respiratory: Positive for shortness of breath. Exam: 10:25 Eyes: Pupils equal round and reactive to light, extra-ocular motions intact. Lids and jr8 lashes normal. Conjunctiva and sclera are non-icteric and not injected. Cornea within normal limits. Periorbital areas with no swelling, redness, or edema. ENT: Nares patent. No nasal discharge, no septal abnormalities noted. Tympanic membranes are normal and external auditory canals are clear. Oropharynx with no redness, swelling, or masses, exudates, or evidence of obstruction, uvula midline. Mucous membranes moist. Neck: Trachea midline, no thyromegaly or masses palpated, and no cervical lymphadenopathy. Supple, full range of motion without nuchal rigidity, or vertebral point tenderness. No Meningismus. Cardiovascular: Regular rate and rhythm with a normal S1 and S2. No gallops, murmurs, or rubs. Normal PMI, no JVD. No pulse deficits. Respiratory: Lungs have equal breath sounds bilaterally, clear to auscultation and percussion. No rales, rhonchi or wheezes noted. No increased work of breathing, no retractions or nasal flaring. Abdomen/GI: Soft, non-tender, with normal bowel sounds. No distension or tympany. No guarding or rebound. No evidence of tenderness throughout. Back: No spinal tenderness. No costovertebral tenderness. Full range of motion. Skin: Warm, dry with normal turgor. Normal color with no rashes, no lesions, and no evidence of cellulitis. MS/ Extremity: Pulses equal, no cyanosis. Neurovascular intact. Full, normal range of motion. Neuro: Awake and alert, GCS 15, oriented to person, place, time, and situation. Cranial nerves II-XII grossly intact. Motor strength 5/5 in all extremities. Sensory grossly intact. Cerebellar exam normal. Normal gait. 10:25 Psych: Behavior/mood is anxious, Affect is animated, Oriented to person, place, time, Patient has no thoughts/intents to harm self or others. Judgement / Insight is normal. Memory is normal. Delusions/hallucinations are not present. 11:39 ECG was reviewed by the Attending Physician. 8 Vital Signs: 10:13 BP 113 / 55; Pulse 59; Resp 20 S; Pulse Ox 99% on R/A; Weight 72.57 kg; Height 5 ft. 5 em in. (165.10 cm); Pain 8/10; 10:55 Temp 97.8(O); em 10:13 Body Mass Index 26.63 (72.57 kg, 165.10 cm) em MDM: 10:06 Patient medically screened. [facility] 11:25 Data reviewed: vital signs, nurses notes, lab test result(s), EKG, radiologic studies, jr8 plain films. Data interpreted: Pulse oximetry: on room air is 99 %. Interpretation: normal. Counseling: I had a detailed discussion with the patient and/or guardian regarding: the historical points, exam findings, and any diagnostic results supporting the discharge/admit diagnosis, lab results, radiology results, the need for outpatient follow up, a net c developer, a family practitioner, to return to the emergency department if symptoms worsen or persist or if there are any questions or concerns that arise at home. Response to treatment: the patient's symptoms have markedly improved after treatment. 02/12 10:11 Order name: Basic Metabolic Panel; Complete Time: 11:15 8 02/12 10:11 Order name: CBC with Diff; Complete Time: 11:42 02/12 10:11 Order name: LFT's; Complete Time: 11:15 8 02/12 10:11 Order name: Magnesium; Complete Time: 11:15 8 02/12 10:11 Order name: NT PRO-BNP; Complete Time: 11:15 8 02/12 10:11 Order name: PT-INR; Complete Time: 11:15 8 02/12 10:11 Order name: Troponin (emerg Dept Use Only); Complete Time: 11:15 8 02/12 10:11 Order name: XRAY Chest (1 view); Complete Time: 11:39 8 02/12 10:11 Order name: EKG; Complete Time: 10:12 02/12 10:11 Order name: Cardiac monitoring; Complete Time: 10:26 8 02/12 10:11 Order name: EKG - Nurse/Tech; Complete Time: 10:8 02/12 11:40 Order name: CBC Smear Scan; Complete Time: 11:42 [facility] 02/12 10:11 Order name: IV Saline Lock; Complete Time: 10:39 jr8 02/12 10:11 Order name: Labs collected and sent; Complete Time: 10:39 jr8 02/12 10:11 Order name: O2 Per Protocol; Complete Time: 10:27 jr8 02/12 10:11 Order name: O2 Sat Monitoring; Complete Time: 10: jr8 EC:39 Rate is 60 beats/min. Rhythm is regular, Normal Sinus Rhythm. QRS Reva is Normal. LA jr8 interval is normal at 176 msec. QRS interval is normal at 98 msec. QT interval is normal at 436 msec. No Q waves. T waves are Inverted in lead III. No ST changes noted. Clinical impression: NSR w/ Non-specific ST/T Changes and No evidence of ischemia. Interpreted by me. Reviewed by me. Administered Medications: 10:35 Drug: Ativan 1 mg Route: IVP; Site: right antecubital; em 11:00 Follow up: Response: No adverse reaction; Marked relief of symptoms; Anxiety decreased em 11:43 Drug: fentaNYL (PF) 25 mcg Route: IVP; Site: right antecubital; em 11:55 Follow up: Response: No adverse reaction; Marked relief of symptoms; Pain is decreased em Disposition: 12:21 Co-signature as Attending Physician, Tray Cheng MD. rn Disposition: 02/13/20 11:27 Discharged to Home. Impression: Chest pain, unspecified. - Condition is Stable. - Discharge Instructions: Nonspecific Chest Pain, Chest Wall Pain. - Medication Reconciliation Form, Thank You Letter, Antibiotic Education, Prescription Opioid Use form. - Follow up: Jose Manuel MD; When: 2 - 3 days; Reason: Recheck today's complaints, Continuance of care, Re-evaluation by your physician. - Problem is new. - Symptoms have improved. Signatures: Dispatcher [employer] Waqar Corrales RN RN Tray Zambrano MD MD rn Roszak, Josh, PA PA jr8 Corrections: (The following items were deleted from the chart) 11:55 11:27 02/13/2020 11:27 Discharged to Home. Impression: Chest pain, unspecified. em Condition is Stable. Forms are Medication Reconciliation Form, Thank You Letter, Antibiotic Education, Prescription Opioid Use. Follow up: Jose Manuel; When: 2 - 3 days; Reason: Recheck today's complaints, Continuance of care, Re-evaluation by your physician. Problem is new. Symptoms have improved. jr8
--- NOTE | 2020-02-13 11:27 | ER ---
Nurse's Notes [facility] Name: Jennifer Salazar Age: 44 yrs Sex: Female : 1975 Arrival Date: 02/13/2020 Time: 09:57 Bed 17 Private MD: Diagnosis: Chest pain, unspecified Presentation: 02/12 10:13 Chief complaint: Patient states: reports chest pain and trouble breathing, denies em fever, reports chills, also reports cough. Coronavirus screen: Patient reports a cough. Patient reports shortness of breath or difficulty breathing. Patient denies measured and/or subjective temperature greater than 100.4F. Patient denies travel on a cruise ship or to a country the [facility] currently lists as an affected area. Patient denies contact with known and/or suspected case of COVID-19. Ebola Screen: Patient negative for fever greater than or equal to 101.5 degrees Fahrenheit, and additional compatible Ebola Virus Disease symptoms Patient denies exposure to infectious person. Patient denies travel to an Ebola-affected area in the 21 days before illness onset. No symptoms or risks identified at this time. Initial Sepsis Screen: Does the patient meet any 2 criteria? No. Patient's initial sepsis screen is negative. Does the patient have a suspected source of infection? No. Patient's initial sepsis screen is negative. Risk Assessment: Do you want to hurt yourself or someone else? Patient reports no desire to harm self or others. 10:13 Method Of Arrival: Ambulatory em 10:13 Acuity: BECKY 3 em Historical: - Allergies: 10:16 Naproxen; em - Home Meds: 10:16 Ambien Oral [Active]; Depakote Oral [Active]; Effexor Oral [Active]; Haldol Oral em [Active]; Trazodone Oral [Active]; Xanax 2 mg Oral tab 1 tab 3 times per day [Active]; - PMHx: 10:16 Anxiety; Depression; Bipolar disorder; Schizophrenia; em - PSHx: 10:16 Appendectomy; Cholecystectomy; em - Immunization history:: Adult Immunizations unknown. - Social history:: Smoking status: Patient reports the use of cigarette tobacco products, denies chronic smoking, but will smoke occasionally. Screenin:13 Abuse screen: Denies threats or abuse. Nutritional screening: No deficits noted. em Tuberculosis screening: No symptoms or risk factors identified. Fall Risk None identified. Assessment: 10:13 General: Appears in no apparent distress. comfortable, Behavior is cooperative, em anxious, Reports chills for 2-3 days, Denies fever. Pain: Complains of pain in chest Pain does not radiate. Pain began 2-3 days ago. Neuro: Level of Consciousness is awake, alert, obeys commands, Oriented to person, place, time, situation, Appropriate for age Nursery Manager are equal bilaterally Moves all extremities. Cardiovascular: Reports chest pain, shortness of breath, Heart tones S1 S2 present Capillary refill < 3 seconds Patient's skin is warm and dry. Rhythm is sinus arrythmia. Respiratory: Reports shortness of breath cough that is Airway is patent Respiratory effort is even, unlabored, Respiratory pattern is regular, symmetrical, Breath sounds are clear bilaterally. GI: Patient currently denies nausea, vomiting. Derm: Skin is intact, is healthy with good turgor, Skin is pink, warm \T\ dry. Musculoskeletal: Capillary refill < 3 seconds, Range of motion: intact in all extremities. 11:00 Reassessment: Patient appears in no apparent distress at this time. Patient and/or em family updated on plan of care and expected duration. Pain level reassessed. Patient is alert, oriented x 3, equal unlabored respirations, skin warm/dry/pink. reports anxiety has improved, reports chest pain has not, provider notified Patient states feeling better. Patient states symptoms have improved. Vital Signs: 10:13 BP 113 / 55; Pulse 59; Resp 20 S; Pulse Ox 99% on R/A; Weight 72.57 kg; Height 5 ft. 5 em in. (165.10 cm); Pain 8/10; 10:55 Temp 97.8(O); em 10:13 Body Mass Index 26.63 (72.57 kg, 165.10 cm) em ED Course: 09:57 Patient arrived in ED. ag5 10:05 Waqar Trevino, ALEKSEY is Primary Nurse. em 10:06 Javon Childers PA is PHCP. jr8 10:06 Tray Cheng MD is Attending Physician. jr8 10:13 Patient has correct armband on for positive identification. Placed in gown. Bed in low em position. Call light in reach. Side rails up X2. Pulse ox on. NIBP on. 10:15 Triage completed. em 10:16 Arm band placed on. em 10:19 Patient maintains SpO2 saturation greater than 95% on room air. em 10:35 Initial lab(s) drawn, by me, sent to lab. Inserted saline lock: 22 gauge in right em antecubital area, using aseptic technique. Blood collected. 10:45 XRAY Chest (1 view) In Process Unspecified. EDMS 11:26 Jose Manuel MD is Referral Physician. jr8 11:49 No provider procedures requiring assistance completed. IV discontinued, intact, em bleeding controlled, No redness/swelling at site. Pressure dressing applied. Administered Medications: 10:35 Drug: Ativan 1 mg Route: IVP; Site: right antecubital; em 11:00 Follow up: Response: No adverse reaction; Marked relief of symptoms; Anxiety decreased em 11:43 Drug: fentaNYL (PF) 25 mcg Route: IVP; Site: right antecubital; em 11:55 Follow up: Response: No adverse reaction; Marked relief of symptoms; Pain is decreased em Outcome: 11:27 Discharge ordered by . jrLizzy 11:50 Discharged to home ambulatory. em 11:50 Condition: good 11:50 Discharge instructions given to patient, Instructed on discharge instructions, follow up and referral plans. Demonstrated understanding of instructions, follow-up care. 11:55 Patient left the ED. em Signatures: Dispatcher [employer] [facility] Waqar Trevino, RN RN em Javon Childers PA PA jr8 Juan Carlos Juarez ag5
--- NOTE | 2020-02-13 11:37 | RAD REPORT ---
EXAM DESCRIPTION: Ed Single View02/13/2020 10:45 am CLINICAL HISTORY: Chest pain COMPARISON: November 2019 FINDINGS: The lungs appear clear of acute infiltrate. The heart is normal size IMPRESSION: No acute abnormalities displayed
[2020-02-13 11:40] LABS: Anisocytosis 1+; Blood Morphology Comment NOTED (NOT SEEN); Hypochromasia 1+; Platelet Estimate ADEQ; Urine White Blood Cell Casts OK
[2020-02-13] MEDS ORDERED: FENTANYL CITR 100 MCG/2 ML ONE (11:40)
[2020-02-13 12:04] VITALS: BP 113/55; O2SAT 99
[2020-02-13 12:05] VITALS: TEMP 97.8
--- NOTE | 2020-02-15 16:53 | EKG ---
Test Date: 2020-02-13 Test Time: 10:24:25 Hearing Stenographer: KATHRIN MEASUREMENT RESULTS: Intervals: Rate: 60 [place]: 176 QRSD: 98 QT: 436 QTc: 436 [place]: P: 72 [place]: 176 QRS: 86 T: 48 INTERPRETIVE STATEMENTS: Normal sinus rhythm with sinus arrhythmia Normal ECG Compared to ECG 09/20/2018 13:07:51 No significant changes Electronically Signed On 02-15-20 16:49:19 CDT by Jose Manuel
== END 2020-02-13 11:55 | disposition home or self-care (01) ==
LOC: ER 09:56
DX: R07.9 Chest pain, unspecified (principal); F41.8 Other specified anxiety disorders; F31.9 Bipolar disorder, unspecified; F20.9 Schizophrenia, unspecified; F17.210 Nicotine dependence, cigarettes, uncomplicated; Z88.8 Allergy status to other drugs, medicaments and biological substances
CPT/HCPCS: 93005; 85025; 80048; 36415; 83735; 85610; 80076; 84484; 83880; 71045; 96375; 96374; 99285; J3010

== ENCOUNTER 2020-02-28 14:18 | Emergency (ER) | payer OTHER ==
--- OUTSIDE RECORDS SUMMARY | 2020-02-28 14:20 | XMS REPORT ---
:1975 Author Organization [employer] Care Team Providers Name Role Phone OsorioMac Provider Role Unavailable Allergies No Known Allergies Problems Problem Type Condition Code Onset Dates Condition Statu s Problem Closed nondisplaced fracture of S82.65XA Active [...]
--- OUTSIDE RECORDS SUMMARY | 2020-02-28 14:20 | XMS REPORT ---
:1975 Author Organization [employer] Care Team Providers Name Role Phone SaundersTitoh Provider Role Unavailable Allergies No Known Allergies Problems Problem Type Condition Code Onset Dates Condition Statu s Problem Pain of joint of left ankle [...]
--- OUTSIDE RECORDS SUMMARY | 2020-02-28 14:20 | XMS REPORT ---
:1975 Author Organization [employer] Care Team Providers Name Role Phone OsorioMac carrillo Provider Role Unavailable Allergies No Known Allergies Problems Problem Type Condition Code Onset Dates Condition Statu s Problem Closed nondisplaced fracture of S82.65XD Active lateral malleolus of left fibula with routine healing Problem Closed nondisplaced fracture of S82.65XA Active lateral malleolus of left fibula, initial encounter Problem Left sciatic nerve pain M54.32 Acti ve Problem Severe anxiety F41.9 Active Problem Current moderate episode of major F32.1 Active depressive disorder without prior episode Problem Pain of joint of left ankle and M25.572 Active foot Problem Bipolar affective disorder, F31.60 Active current episode mixed, current episode severity unspecified Medications Medication Code Code Instructions Start End Status Dosage System Date Date Depakote [facility] 12725974925 500 MG Orally Active not d efined Lorazepam ND 58391259805 1 MG Orally Once Active 1 tablet at a day bedtime as needed Zoloft ND 08481039611 100 mg Oral Active 2 tab Klonopin ND 16010739010 0.5 MG Orally Active 1 tab let at Once a day bedtime Tramadol HCl ND 35580936734 50 MG Orally 1 May 07May Active as directed PO 6 HRS PRN 2018, PAIN 2019 Acetaminophen- NDC 74624491189 300-30 MG Orally Acti ve not defined Codeine #3 Effexor NDC 0 100 MG Orally Active 1 tablet Once a day with food Tylenol # 3 NDC 0 300/30mg PO April 02, Active one tab every 6 hrs 2019 Results No Known Results Summary Purpose eClinicalWorks Submission
--- OUTSIDE RECORDS SUMMARY | 2020-02-28 14:20 | XMS REPORT ---
:1975 Author Organization [employer] Care Team Providers Name Role Phone Saunders [facility] Provider Role Unavailable Allergies No Known [...] Status Dosage System Date Date Acetaminophen- NDC 33065353998 300-30 MG Orally Acti ve not Codeine #3 defined Results No Known Results Summary Purpose eClinicalWorks Submission
--- OUTSIDE RECORDS SUMMARY | 2020-02-28 14:20 | XMS REPORT ---
:1975 Author Organization [facility] t Address [address] [place] [address] Care Team Providers Name Role Phone Unavailable Unavailable Unavailable Problems Condition Condition Condition Status Onset Resolution Last Treatin g Comments Name Details Category Date Date Treatment Clinician Date Severe Severe Problem Active anxiety anxiety Current Current Problem Active moderate moderate episode of episode of major major depressive depressive disorder disorder without without prior prior episode episode Bipolar Bipolar Problem Active affective affective disorder, disorder, current current episode episode mixed, mixed, current current episode episode severity severity unspecified unspecified Pain of Pain of Problem Active joint of joint of left ankle left ankle and foot and foot Closed Closed Problem Active nondisplace nondisplace d fracture d fracture of lateral of lateral malleolus malleolus of left of left fibula, fibula, initial initial encounter encounter Closed Closed Problem Active nondisplace nondisplace d fracture d fracture of lateral of lateral malleolus malleolus of left of left fibula with fibula with routine routine healing healing Left Left Problem Active sciatic sciatic nerve pain nerve pain Allergies, Adverse Reactions, Alerts This patient has no known allergies or adverse reactions. Medications Ordered Filled Start Stop Current Ordering Indication Dosage Frequency Signature Comments Components Medication Medication Date Date Medication? Clinician (SIG) Name Name Tylenol # 3 Tylenol # 3 2019- No Mac danielle 5-23 06-06 Osorio 00:00: 00:00 00 :00 Acetaminoph Acetaminoph Yes Mac not en-Codeine en-Codeine Osorio defined #3 #3 Lorazepam Lorazepam Yes Mac 1 tablet Osorio at bedtime as needed Effexor Effexor Yes Mac 1 tablet Osorio with food Klonopin Klonopin Yes Mac 1 tablet Osorio at bedtime Zoloft Zoloft Yes Mac 2 tab Osorio Depakote Depakote Yes Mac not Osorio defined Encounters Start End Encounter Admission Attending Care Care Encounter Date/Time Date/Time Type Type Clinicians Facility Department ID 2019-05-20 2019-05-20 [facility] [id number] 16:15:00 16:15:00 [facility] 2019-05-07 2019-05-07 [facility] [id number] 15:30:00 15:30:00 [facility] 2019-05-07 2019-05-07 [facility] [id number] 14:28:00 14:28:00 [facility] 2019-05-06 2019-05-06 [facility] [id number] 11:28:00 11:28:00 [facility] 2019-05-05 2019-05-05 [facility] [id number] 14:00:00 14:00:00 [facility] 2019-04-28 2019-04-28 [facility] [id number] 09:30:00 09:30:00 [facility] 2019-04-24 2019-04-24 [facility] [id number] 10:53:00 10:53:00 [facility] 2019-04-24 2019-04-24 [facility] [id number] 10:06:00 10:06:00 [facility] 2019-01-12 2019-01-12 [facility] [id number] 10:00:00 10:00:00 [facility]
--- OUTSIDE RECORDS SUMMARY | 2020-02-28 14:20 | XMS REPORT ---
:1975 Author Organization [employer]Works Care Team Providers Name Role Phone Mac Osorio Provider Role Unavailable Allergies, Adverse Reactions, Alerts Substance Reaction Event Type N.K.D.A. Info Not Available Non Drug Allergy Problems Problem Type Condition Code Onset Dates Condition Statu s Assessment Pain of joint of left ankle [...] End Status Dosage System Date Date Lorazepam ND 93042328635 1 MG Orally Once Active 1 tablet a day at bedtime as needed Acetaminophen- NDC 03012675114 300-30 MG Orally Acti ve not Codeine #3 defined Effexor NDC 0 100 MG Orally Active 1 tablet Once a day with food Klonopin NDC 40247082228 0.5 MG Orally Active 1 tab let Once a day at bedtime Zoloft NDC 58297664478 100 mg Oral Active 2 tab Tylenol # 3 NDC 0 300/30mg PO April 02, Active one tab every 6 hrs 2018 Depakote NDC 81479580439 500 MG Orally Active not defined Results No Known Results Summary Purpose eClinicalWorks Submission
--- OUTSIDE RECORDS SUMMARY | 2020-02-28 14:20 | XMS REPORT ---
:1975 Author Organization [employer] Care Team Providers Name Role Phone Mac Osorio Provider Role Unavailable Allergies, Adverse Reactions, Alerts Substance Reaction Event Type N.K.D.A. Info Not Available Non Drug Allergy Problems Problem Type Condition Code Onset Dates Condition Statu s Assessment Closed nondisplaced fracture of S82.65XD Active lateral malleolus of left fibula with routine healing Assessment Pain of joint of left ankle and M25.572 Active foot Assessment Left sciatic nerve pain M54.32 Acti ve Problem Closed nondisplaced fracture of S82.65XD Active [...] one tab every 6 hrs 2018 Zoloft NDC 06224440011 100 mg Oral Active 2 tab Depakote NDC 76407716891 500 MG Orally Active not defined Effexor NDC 0 100 MG Orally Active 1 tablet Once a day with food Lorazepam NDC 10675633064 1 MG Orally Once Active 1 tablet a day at bedtime as needed Klonopin NDC 80881192621 0.5 MG Orally Active 1 tab let Once a day at bedtime Acetaminophen- NDC 27159634664 300-30 MG Orally Acti ve not Codeine #3 defined Tylenol # 3 NDC 0 300/30mg 1 PO Q May 07May Active one tab 6 hrs prn pain 2018 Results No Known Results Summary Purpose eClinicalWorks Submission
--- OUTSIDE RECORDS SUMMARY | 2020-02-28 14:20 | XMS REPORT ---
:1975 Author Organization [employer] Care Team Providers Name Role Phone Tito Saundersh Provider Role Unavailable Allergies, Adverse Reactions, Alerts Substance Reaction Event Type N.K.D.A. Info Not Available Non Drug Allergy Problems Problem Type Condition Code Onset Dates Condition Statu s Problem Severe anxiety F41.9 Active Problem Current [...] Once a day with food Depakote NDC 98883675727 500 MG Orally Active as di rected Once a day Trazodone HCl NDC 38186944774 100 MG Orally Active 1 tablet at Once a day bedtime Results No Known Results Summary Purpose eClinicalWorks Submission
--- OUTSIDE RECORDS SUMMARY | 2020-02-28 14:21 | XMS REPORT ---
[...] End Status Dosage System Date Date Klonopin [facility] 54171476462 0.5 MG Orally Active 1 tab let Once a day at bedtime Lorazepam ND 56780254140 1 MG Orally Once Active 1 tablet a day at bedtime as needed Depakote ND 64204831381 500 MG Orally Active not defined Acetaminophen- ND 30670097163 300-30 MG Orally Acti ve not Codeine #3 defined Tylenol # 3 NDC 0 300/30mg PO April 02, Active one tab every 6 hrs 2018 Zoloft ND 53921235412 100 mg Oral Active 2 tab Effexor NDC 0 100 MG Orally Active 1 tablet Once a day with food Results No Known Results Summary Purpose eClinicalWorks Submission
[2020-02-28] MEDS ORDERED: ZIPRASIDONE MESYLA 20 MG/VIAL IM ONE ×2 (14:40→14:42)
[2020-02-28] MEDS ORDERED: WATER FOR INJ,STERILE 10 ML ONE (14:41)
[2020-02-28 15:06] LABS: Absolute Lymphocytes (CBC) 2.4 K/uL (0.7-4.9); Hematocrit 33.5 % (36.0-45.0); Lymphocytes % 33.2 % (15.3-44.8); MPV 8.7 fL (7.6-11.3); RBC Red Blood Cell Count 4.76 M/uL (3.86-4.86)
[2020-02-28 15:15] LABS: Protime INR 0.8
[2020-02-28 15:25] LABS: ALT/SGPT 23 U/L (12-78); AST/SGOT 27 U/L (15-37); Albumin 3.8 g/dL (3.4-5.0); Alkaline Phosphatase 71 U/L (45-117); BUN Blood Urea Nitrogen 8 mg/dL (7-18); Bicarbonate 23 mmol/L (21-32); Bilirubin Direct < 0.1 mg/dL (0-0.2); Bilirubin Total 0.3 mg/dL (0.2-1.0); Glucose Level 134 mg/dL (74-106); Potassium 3.4 mmol/L (3.5-5.1); Protein, Total 7.5 g/dL (6.4-8.2); Sodium Level 142 mmol/L (136-145)
[2020-02-28] MEDS ORDERED: NA CHLORIDE 0.9% 1,000 ML ONE (15:38)
[2020-02-28 15:48] LABS: Anisocytosis 2+; Blood Morphology Comment NOTED (NOT SEEN); Platelet Estimate ADEQ; Poikilocytosis 1+; Urine White Blood Cell Casts OK
[2020-02-28 16:24] LABS: Barbiturates NEGATIVE (NEGATIVE); Benzodiazepines POSITIVE (NEGATIVE); Cocaine NEGATIVE (NEGATIVE); METHAMPHETAM NEGATIVE (NEGATIVE); Methadone NEGATIVE (NEGATIVE); Opiates NEGATIVE (NEGATIVE); Phencyclidine NEGATIVE (NEGATIVE); THC Cannibis NEGATIVE (NEGATIVE)
[2020-02-28 16:25] LABS: Urine Blood 1+ (NEG); Urine Glucose NEGATIVE (NEG); Urine Protein NEGATIVE (NEG); Urine Specific Gravity >1.030 (1.005-1.030); Urine pH 5.5 (5.0-7.0)
[2020-02-28 16:30] LABS: Urine Bacteria 20-50 /HPF (<20); Urine Culture Reflex Order NOT NEEDED; Urine RBC <5 /HPF (NONE SEEN); Urine Yeast FEW (NONE SEEN)
[2020-02-28] MEDS ORDERED: CEFTRIAXONE/SWI 1gm 1 GM/10 ML SYR ONE (16:43)
[2020-02-28] MEDS ORDERED: DICYCLOMINE HCL 10 MG CAP ONE (16:43)
--- NOTE | 2020-02-28 16:53 | ER ---
Nurse's Notes [facility] Name: Jennifer Salazar Age: 44 yrs Sex: Female : 1975 Arrival Date: 02/28/2020 Time: 14:18 Bed 18 Private MD: Diagnosis: Urinary tract infection, site not specified;Bipolar disorder, current episode mixed, severe, with psychotic features Presentation: 02/27 14:38 Chief complaint: Patient states: pt crying and screaming "Don't tell me I'm okay, I'm iw not okay, I've been out of my meds for three days, y'all know my history!" pt given verbal encouragement to sit in bed and try to relax, pt sitting in bed, is calm now, states she is out of her xanax, ambien, depakote, and zoloft. Coronavirus screen: Proceed with normal triage. Patient denies a cough. Patient denies shortness of breath or difficulty breathing. Patient denies measured and/or subjective temperature greater than 100.4F prior to today's visit. Patient denies travel on a cruise ship or to a country the [facility] currently lists as an affected area. Patient denies contact with known and/or suspected case of COVID-19. Ebola Screen: Patient negative for fever greater than or equal to 101.5 degrees Fahrenheit, and additional compatible Ebola Virus Disease symptoms Patient denies exposure to infectious person. Patient denies travel to an Ebola-affected area in the 21 days before illness onset. No symptoms or risks identified at this time. Initial Sepsis Screen: Does the patient meet any 2 criteria? No. Patient's initial sepsis screen is negative. Does the patient have a suspected source of infection? No. Patient's initial sepsis screen is negative. Risk Assessment: Do you want to hurt yourself or someone else? Unable to obtain. 14:38 Method Of Arrival: Ambulatory iw 14:43 Onset of symptoms was February 28, 2020. iw 14:43 Acuity: BECKY 2 iw Triage Assessment: 14:27 General: Appears in no apparent distress. Behavior is agitated, anxious, fussy, ls4 uncooperative. 14:27 Pain:. 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 - Social history:: Smoking status: unknown. Screenin:04 Abuse screen: Denies threats or abuse. Denies injuries from another. Nutritional ls4 screening: No deficits noted. Tuberculosis screening: No symptoms or risk factors identified. Fall Risk None identified. Assessment: 15:45 Reassessment: Patient appears in no apparent distress at this time. Patient and/or ls4 family updated on plan of care and expected duration. Pain level reassessed. Patient is alert, oriented x 3, equal unlabored respirations, skin warm/dry/pink. Patient states symptoms have improved. 16:45 Reassessment: Patient appears in no apparent distress at this time. Patient and/or ls4 family updated on plan of care and expected duration. Pain level reassessed. Patient is alert, oriented x 3, equal unlabored respirations, skin warm/dry/pink. 17:14 Reassessment: Patient appears in no apparent distress at this time. Patient and/or ls4 family updated on plan of care and expected duration. Pain level reassessed. Patient is alert, oriented x 3, equal unlabored respirations, skin warm/dry/pink. Patient states feeling better. Patient states symptoms have improved. Psych: 14:30 Subjective: Patient's mood is angry, irritable, Delusions are denied, Hallucinations ls4 are denied Having thoughts of no si or hi. Objective: Patient is cooperative, Speech is loud, Affect is. Commitment: unknown. 14:30 Interventions: Removed personal items and placed in bag. Suicide Risk Assessment: Sad ls4 Person Scale: Sex of patient: Female: Score 0 points. Age of patient: Score 0 point if patient falls outside of specified age parameters. Depression: Score 0 point if signs of depression are not present. Previous Attempt: Score 0 point if patient has not previously attempted suicide. Substance Abuse: Score 0 point if patient does not abuse alcohol or drugs. Rational Thinking: Score 1 point if patient is lacking rational thinking. Social Support: Score 1 point if social support is lacking and/or unavailable. Organized Plan: Score 0 if patient did not have an organized plan in place. Relationship: Score 1 point if patient is , , , or for a single male Chronic Sickness: Score 0 point if patient does not have a chronic illness, debilitating, or severe disorder. TOTAL POINTS: If total points are 0-2, proposed clinical action is to send home with follow-up. Safety Checks: PT NOT SI OR HI. Pt denies substance abuse. Vital Signs: 14:44 Pulse 117; Resp 18 S; Pulse Ox 97% ; iw 15:45 BP 136 / 74; Pulse 78; Resp 14; Pulse Ox 99% on R/A; Pain 0/10; ls4 ED Course: 14:18 Patient arrived in ED. as 14:26 Tom Rodriguez, RN is Primary Nurse. jl7 14:30 Patient has correct armband on for positive identification. Bed in low position. Call ls4 light in reach. Side rails up X 1. 14:30 Pulse ox on. NIBP on. ls4 14:30 Patient placed. ls4 14:30 No provider procedures requiring assistance completed. Initial lab(s) drawn, by me. ls4 Inserted saline lock: 18 gauge in right antecubital area, using aseptic technique. Blood collected. 14:33 Dixie Hurst, ALEKSEY is Primary Nurse. ls4 14:34 Thi Pritchett FNP-C [facility]. snw 14:34 Tray Cheng MD is Attending Physician. snw 14:44 Triage completed. iw Administered Medications: 14:50 Drug: Geodon 40 mg Route: IM; Site: right deltoid; ls4 15:43 Drug: NS 0.9% 1000 ml Route: IV; Rate: 1 bolus; Site: right antecubital; ls4 16:43 Follow up: IV Intake: 1000ml ls4 16:47 Drug: Rocephin - (cefTRIAXone) 1 grams Route: IVPB; Infused Over: 10 mins; Site: right ls4 antecubital; 16:57 Follow up: Response: No adverse reaction; IV Status: Completed infusion; IV Intake: [id number] 16:50 Drug: Bentyl 20 mg Route: PO; ls4 16:52 Follow up: Response: No adverse reaction; Marked relief of symptoms ls4 17:10 Follow up: Response: No adverse reaction; Marked relief of symptoms ls4 Intake: 16:43 IV: 1000ml; Total: 1000ml. ls4 16:57 IV: 10ml; Total: 1010ml. ls4 Outcome: 16:52 Discharge ordered by MD. bright 17:38 Patient left the ED. ls4 Addendum: 03/01/2020 07:24 Addendum: Culture Results: Positive urine culture. No further action required. Bacteria s s sensitive to prescribed antibiotic. Signatures: Thi Pritchett, CENTER PUNCH OPERATOR-C CENTER PUNCH OPERATOR-Csnw Anna Bennett Irene, RN RN Angeles Pang RN RN Tom Rodriguez RN RN jl7 Dixie Hurst RN RN ls4
--- NOTE | 2020-02-28 16:53 | EDPHYS ---
Physician Documentation [facility] Name: Jennifer Salazar Age: 44 yrs Sex: Female : 1975 Arrival Date: 02/28/2020 Time: 14:18 Bed 18 Private MD: ED Physician Tray Cheng HPI: 02/27 15:16 This 44 yrs old Female presents to ER via Ambulatory with complaints of Psych snw Problem, Abdominal Pain, Headache. 15:16 The patient presents to the emergency department with anxiety, paranoia, out of snw medications. Onset: The symptoms/episode began/occurred gradually, and became worse today. Past psychiatric history: Prior diagnosis: bipolar disorder, schizophrenia, Psychiatric medications include: Xanax, ambien, zoloft, depakote, Primary psychiatric physician: the patient's psychiatric physician is not known. Associated signs and symptoms: The patient has no apparent associated signs or symptoms. Severity of symptoms: At their worst the symptoms were severe incapacitating. The patient has experienced similar episodes in the past. The patient has not recently seen a physician, Pandemic. 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 - Social history:: Smoking status: unknown. ROS: 15:15 Constitutional: Negative for fever, chills, and weight loss, Eyes: Negative for injury, snw pain, redness, and discharge, ENT: Negative for injury, pain, and discharge, Neck: Negative for injury, pain, and swelling, Cardiovascular: Negative for chest pain, palpitations, and edema, Respiratory: Negative for shortness of breath, cough, wheezing, and pleuritic chest pain, Abdomen/GI: Negative for abdominal pain, nausea, vomiting, diarrhea, and constipation, Back: Negative for injury and pain, : Negative for injury, bleeding, discharge, and swelling, MS/Extremity: Negative for injury and deformity, Skin: Negative for injury, rash, and discoloration, Neuro: Negative for headache, weakness, numbness, tingling, and seizure. 15:15 Psych: Positive for anxiety, insomnia, no medications x 3 days, sees [facility] and Dr. Joya. Exam: 15:11 Constitutional: This is a well developed, well nourished patient who is acutely snw psychotic. Screaming, crying, Head/Face: Normocephalic, atraumatic. Eyes: Pupils equal round and reactive to light, extra-ocular motions intact. Lids and lashes normal. Conjunctiva and sclera are non-icteric and not injected. Cornea within normal limits. Periorbital areas with no swelling, redness, or edema. ENT: Nares patent. No nasal discharge, no septal abnormalities noted. Tympanic membranes are normal and external auditory canals are clear. Oropharynx with no redness, swelling, or masses, exudates, or evidence of obstruction, uvula midline. Mucous membranes moist. Neck: Trachea midline, no thyromegaly or masses palpated, and no cervical lymphadenopathy. Supple, full range of motion without nuchal rigidity, or vertebral point tenderness. No Meningismus. Chest/axilla: Normal chest wall appearance and motion. Nontender with no deformity. No lesions are appreciated. Cardiovascular: Regular rate and rhythm with a normal S1 and S2. No gallops, murmurs, or rubs. Normal PMI, no JVD. No pulse deficits. Respiratory: Lungs have equal breath sounds bilaterally, clear to auscultation and percussion. No rales, rhonchi or wheezes noted. No increased work of breathing, no retractions or nasal flaring. Abdomen/GI: Soft, non-tender, with normal bowel sounds. No distension or tympany. No guarding or rebound. No evidence of tenderness throughout. Back: No spinal tenderness. No costovertebral tenderness. Full range of motion. Skin: Warm, dry with normal turgor. Normal color with no rashes, no lesions, and no evidence of cellulitis. MS/ Extremity: Pulses equal, no cyanosis. Neurovascular intact. Full, normal range of motion. Neuro: Awake and alert, GCS 15, oriented to person, place, time, and situation. Cranial nerves II-XII grossly intact. Motor strength 5/5 in all extremities. Sensory grossly intact. Cerebellar exam normal. Normal gait. 15:14 Psych: Behavior/mood is anxious, inappropriate for age, acutely psychotic. Affect is snw animated, Oriented to person, place, time. Vital Signs: 14:44 Pulse 117; Resp 18 S; Pulse Ox 97% ; iw 15:45 BP 136 / 74; Pulse 78; Resp 14; Pulse Ox 99% on R/A; Pain 0/10; ls4 MDM: 14:35 Patient medically screened. snw 16:34 Data reviewed: vital signs, nurses notes. Data interpreted: Pulse oximetry: on room air snw is 97 %. Interpretation: normal. Counseling: I had a detailed discussion with the patient and/or guardian regarding: the historical points, exam findings, and any diagnostic results supporting the discharge/admit diagnosis, lab results, the need for outpatient follow up, to return to the emergency department if symptoms worsen or persist or if there are any questions or concerns that arise at home. Response to treatment: the patient's symptoms have markedly improved after treatment. Special discussion: Based on the history and exam findings, there is no indication for further emergent testing or inpatient evaluation. I discussed with the patient/guardian the need to see the primary care provider for further evaluation of the symptoms. I discussed with the patient/guardian the need to see the psychiatrist for further evaluation of the symptoms. ED course: Pt feeling much better. States her lower abd hurting. UTI on exam. Will give abx, bentyl and re-evaluate. Pt states she can f/u with [facility]. 02/27 14:35 Order name: Acetaminophen; Complete Time: 15:50 snw 02/27 14:35 Order name: BMP; Complete Time: 15:50 snw 02/27 14:35 Order name: CBC with Diff; Complete Time: 15:50 snw 02/27 14:35 Order name: Ethanol; Complete Time: 15:50 snw 02/27 14:35 Order name: Hepatic Function; Complete Time: 15:50 snw 02/27 14:35 Order name: Protime (+inr); Complete Time: 15:20 snw 02/27 14:35 Order name: Ptt, Activated; Complete Time: 15:20 snw 02/27 14:35 Order name: Salicylate; Complete Time: 16:20 snw 02/27 14:35 Order name: Urine Drug Screen; Complete Time: 16:28 snw 02/27 15:14 Order name: CBC Smear Scan; Complete Time: 15:50 EDMS 02/27 15:49 Order name: Urine Microscopic Only; Complete Time: 16:31 em1 02/27 15:51 Order name: Urine Culture [facility] 02/27 15:51 Order name: Urine Dipstick--Ancillary (enter results); Complete Time: 16:28 em1 02/27 15:51 Order name: Urine --Ancillary (enter results); Complete Time: 16:28 em1 02/27 14:35 Order name: EKG; Complete Time: 14:36 snw 02/27 14:35 Order name: EKG - Nurse/Tech; Complete Time: 15:28 snw 02/27 14:35 Order name: IV Saline Lock; Complete Time: 15:28 snw 02/27 14:35 Order name: Labs collected and sent; Complete Time: 15:28 snw 02/27 14:35 Order name: O2 Per Protocol; Complete Time: 15:28 snw 02/27 14:35 Order name: O2 Sat Monitoring; Complete Time: 15:28 w 02/27 14:35 Order name: Urine Dipstick-Ancillary (obtain specimen); Complete Time: 15:28 snw Administered Medications: 14:50 Drug: Geodon 40 mg Route: IM; Site: right deltoid; ls4 15:43 Drug: NS 0.9% 1000 ml Route: IV; Rate: 1 bolus; Site: right antecubital; ls4 16:43 Follow up: IV Intake: 1000ml ls4 16:47 Drug: Rocephin - (cefTRIAXone) 1 grams Route: IVPB; Infused Over: 10 mins; Site: right ls4 antecubital; 16:57 Follow up: Response: No adverse reaction; IV Status: Completed infusion; IV Intake: 96kicd4 16:50 Drug: Bentyl 20 mg Route: PO; ls4 16:52 Follow up: Response: No adverse reaction; Marked relief of symptoms ls4 17:10 Follow up: Response: No adverse reaction; Marked relief of symptoms ls4 Disposition: 17:38 Co-signature as Attending Physician, Tray Cheng MD. rn Disposition: 02/28/20 16:52 Discharged to Home. Impression: Urinary tract infection, site not specified, Bipolar disorder, current episode mixed, severe, with psychotic features. - Condition is Stable. - Discharge Instructions: Urinary Tract Infection, Adult, Psychosis. - Prescriptions for Augmentin 875- 125 mg Oral Tablet - take 1 tablet by ORAL route every 12 hours for 10 days; 20 tablet. Bentyl 20 mg Oral Tablet - take 1 tablet by ORAL route every 6 hours As needed; 20 tablet. - Medication Reconciliation Form, Thank You Letter, Antibiotic Education, Prescription Opioid Use form. - Follow up: Emergency Department; When: As needed; Reason: Worsening of condition. Follow up: Private Physician; When: Tomorrow; Reason: Recheck today's complaints, Continuance of care. Signatures: Dispatcher [employer] EDMS Thi Pritchett, RAFY-C DATA ENTRY EMAIL PROCESSOR-Csnw Marian Dawson RN RN iw Nieto, Roman, MD MD rn Stewart, Lisa, RN RN ls4 Corrections: (The following items were deleted from the chart) 15:15 15:11 Constitutional: This is a well developed, well nourished patient who is awake, snw alert, and in no acute distress. Head/Face: Normocephalic, atraumatic. Eyes: Pupils equal round and reactive to light, extra-ocular motions intact. Lids and lashes normal. Conjunctiva and sclera are non-icteric and not injected. Cornea within normal limits. Periorbital areas with no swelling, redness, or edema. ENT: Nares patent. No nasal discharge, no septal abnormalities noted. Tympanic membranes are normal and external auditory canals are clear. Oropharynx with no redness, swelling, or masses, exudates, or evidence of obstruction, uvula midline. Mucous membranes moist. Neck: Trachea midline, no thyromegaly or masses palpated, and no cervical lymphadenopathy. Supple, full range of motion without nuchal rigidity, or vertebral point tenderness. No Meningismus. Chest/axilla: Normal chest wall appearance and motion. Nontender with no deformity. No lesions are appreciated. Cardiovascular: Regular rate and rhythm with a normal S1 and S2. No gallops, murmurs, or rubs. Normal PMI, no JVD. No pulse deficits. Respiratory: Lungs have equal breath sounds bilaterally, clear to auscultation and percussion. No rales, rhonchi or wheezes noted. No increased work of breathing, no retractions or nasal flaring. Back: No spinal tenderness. No costovertebral tenderness. Full range of motion. Skin: Warm, dry with normal turgor. Normal color with no rashes, no lesions, and no evidence of cellulitis. MS/ Extremity: Pulses equal, no cyanosis. Neurovascular intact. Full, normal range of motion. Neuro: Awake and alert, GCS 15, oriented to person, place, time, and situation. Cranial nerves II-XII grossly intact. Motor strength 5/5 in all extremities. Sensory grossly intact. Cerebellar exam normal. Normal gait. snw 15:15 15:11 Abdomen/GI: Inspection: distension, Bowel sounds: diminished, Palpation: soft, snw moderate abdominal tenderness, in the right lower quadrant and left lower quadrant, snw 17:38 16:52 02/28/2020 16:52 Discharged to Home. Impression: Urinary tract infection, site ls4 not specified; Bipolar disorder, current episode mixed, severe, with psychotic features. Condition is Stable. Forms are Medication Reconciliation Form, Thank You Letter, Antibiotic Education, Prescription Opioid Use. Follow up: Emergency Department; When: As needed; Reason: Worsening of condition. Follow up: Private Physician; When: Tomorrow; Reason: Recheck today's complaints, Continuance of care. snw
[2020-02-28 17:58] VITALS: BP 136/74; O2SAT 99
--- NOTE | 2020-02-29 16:24 | EKG ---
Test Date: 2020-02-28 Test Time: 15:15:14 Air Brush Decorator: MELI MEASUREMENT RESULTS: Intervals: Rate: 88 RI: 144 QRSD: 98 QT: 396 QTc: 479 Zapata: P: 76 RI: 144 QRS: 91 T: 29 INTERPRETIVE STATEMENTS: Normal sinus rhythm Rightward axis Nonspecific ST and T wave abnormality Prolonged QT Abnormal ECG Compared to ECG 02/13/2020 10:24:25 Right-axis deviation now present ST (T wave) deviation now present Prolonged QT interval now present Sinus arrhythmia no longer present Electronically Signed On 02-29-20 16:22:25 CDT by Jose Manuel
== END 2020-02-28 17:38 | disposition home or self-care (01) ==
LOC: ER 14:18
DX: F31.64 Bipolar disorder, current episode mixed, severe, with psychotic features (principal); N39.0 Urinary tract infection, site not specified; Z88.5 Allergy status to narcotic agent
CPT/HCPCS: 93005; 87088; 85025; 87086; 80048; 36415; 80320; 80329 ×2; 81025; 85610; 80076; 80307 ×8; 85730; J3486 ×2; J0696; J7030; 81003; 81015; 87077; 87186; 96372; 96374; 99284

== ENCOUNTER 2020-04-03 21:35 | Emergency (ER) | payer OTHER ==
--- OUTSIDE RECORDS SUMMARY | 2020-04-03 21:37 | XMS REPORT ---
:1975 Author Organization [facility] t Address [address] [place] [address] Care Team Providers Name Role Phone Matthieu PELLETIER Attending Clinician Problems Condition Condition Condition Status Onset Resolution Last Treating Co mments Source Name Details Category Date Date Treatment Clinician Date Severe Severe Problem Active [facility] Current Current Problem Active [facility] moderate moderate [facility] - episode of episode of Me moria major major l depressive depressive Ou tpati disorder disorder ent without without Clinics prior prior episode episode Bipolar Bipolar Problem Active [facility] affective affective [facility] - disorder, disorder, Shaquille mikel current current l episode episode Outpati mixed, mixed, ent current current Clinics episode episode severity severity unspecifie unspecifie d d Pain of Pain of Problem Active [facility] joint of joint of [facility] - left ankle left ankle Me moria and foot and foot l Outpati ent Clinics Closed Closed Problem Active [facility] nondisplac nondisplac Keyla kes - ed ed Memoria fracture fracture l of lateral of lateral Ou tpati malleolus malleolus ent of left of left Clinics fibula, fibula, initial initial encounter encounter Closed Closed Problem Active [facility] nondisplac nondisplac Keyla kes - ed ed Memoria fracture fracture l of lateral of lateral Ou tpati malleolus malleolus ent of left of left Clinics fibula fibula with with routine routine healing healing Left Left Problem Active [facility] sciatic sciatic [facility] - nerve pain nerve pain Me moria l Outpati ent Clinics Allergies, Adverse Reactions, Alerts This patient has no known allergies or adverse reactions. Medications Ordered Filled Start Stop Current Ordering Indication Dosage Frequency Signature Comments Components Source Medication Medication Date Date Medication? Clinician (SIG) Name Name Tylenol # 3 Tylenol # 3 2019- 2019- No Mac one tab [facility] 04-02 [facility] 00:00: 00:00 [facility] 00 :[facility] l [facility] ent Clinics Acetaminoph Acetaminoph Yes Mac not [facility] en-Codeine en-Codeine [facility] defined [facility] - #3 #3 [facility] Lorazepam Lorazepam Yes Mac [address] [facility] [place] at bedtime [facility] - as needed [facility] ent Clinics Effexor Effexor Yes Mac [address] [facility] [place] with food [facility] Klonopin Klonopin Yes Mac [address] [place] at bedtime [facility] Zoloft Zoloft Yes Amc [address] [facility] [place] [facility] Depakote Depakote Yes Mac not [facility] [place] defined [facility] Procedures This patient has no known procedures. Encounters Start End Encounter Admission Attending Care Care Encounter Source Date/Time Date/Time Type Type Clinicians Facility Department ID 2019-07-16 2019-07-16 Emergency [facility], [facility] [id number] 15:08:41 20:56:00 Jimbo Gil [id number] [place] [id number] [place] [id number] 2019-05-20 2019-05-20 Outpatient [facility]on [facility] [id number] [facility] 16:15:00 16:15:00 t [facility] 2019-05-07 2019-05-07 [place] [id number] [facility] 15:30:00 15:30:00 t [facility] 2019-05-07 2019-05-07 [place] [id number] 14:28:00 14:28:00 t [facility] 2019-05-06 2019-05-06 [place] [id number] 11:28:00 11:28:00 t [facility] ent Clinics 2019-05-05 2019-05-05 [place] [id number] [address] 14:00:00 14:00:00 t [facility] ent Clinics 2019-04-28 2019-04-28 Outpatient [place] [id number] [facility] 09:30:00 09:30:00 t [facility] ent Clinics 2019-04-24 2019-04-24 Outpatient [place] [place] [id number] 10:53:00 10:53:00 t [facility] ent Clinics 2019-04-24 2019-04-24 Outpatient [facility] [place] [id number] 10:06:00 10:06:00 t [facility] ent Clinics 2019-01-12 2019-01-12 Outpatient [facility] [id number] 10:00:00 10:00:[address] [facility] ent Clinics Results This patient has no known results.
[2020-04-03] MEDS ORDERED: NA CHLORIDE 0.9% 1,000 ML ONE (23:09)
[2020-04-03 23:11] LABS: Absolute Lymphocytes (CBC) 2.2 K/uL (0.7-4.9); Basophils % 1.2 % (0-1.3); Hematocrit 29.9 % (36.0-45.0); Lymphocytes % 41.7 % (15.3-44.8); MPV 7.8 fL (7.6-11.3); RBC Red Blood Cell Count 4.09 M/uL (3.86-4.86)
[2020-04-03 23:22] LABS: ALT/SGPT 16 U/L (12-78); AST/SGOT 14 U/L (15-37); Albumin 3.6 g/dL (3.4-5.0); Alkaline Phosphatase 53 U/L (45-117); BUN Blood Urea Nitrogen 18 mg/dL (7-18); Bicarbonate 24 mmol/L (21-32); Bilirubin Total 0.1 mg/dL (0.2-1.0); Glucose Level 97 mg/dL (74-106); Potassium 3.7 mmol/L (3.5-5.1); Protein, Total 7.1 g/dL (6.4-8.2); Sodium Level 139 mmol/L (136-145)
[2020-04-04 00:10] LABS: Anisocytosis 1+; Blood Morphology Comment NOTED (NOT SEEN); Ovalocytes 2+; Platelet Estimate ADEQ; Urine White Blood Cell Casts OK
[2020-04-04] MEDS ORDERED: FENTANYL CITR 100 MCG/2 ML ONE (01:03)
--- NOTE | 2020-04-04 01:27 | EDPHYS ---
Physician Documentation [facility] Name: Jennifer Salazar Age: 44 yrs Sex: Female : 1975 Arrival Date: 04/03/2020 Time: 21:36 Bed 8 Private MD: ED Physician Nicholas Vargas HPI: 04/03 21:58 This 44 yrs old Female presents to ER via Wheelchair with complaints of Heavy jmm Blood Flow, Weakness. 21:58 The patient presents with vaginal bleeding that is. Onset: The symptoms/episode jmm began/occurred gradually, 1 day(s) ago. Modifying factors: The symptoms are alleviated by nothing, the symptoms are aggravated by nothing. Associated signs and symptoms: Pertinent positives: low back pain. This is a 44 year old female with a history of anxiety, bipolar, schizophrenia that presents to the ED with complaints of heavy bleeding beginning yesterday with low back pain. Patient states she has needed blood transfusions in the past. . 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 - Social history:: Smoking status: Patient reports the use of cigarette tobacco products, denies chronic smoking, but will smoke occasionally. ROS: 21:58 Constitutional: Negative for fever, chills, and weight loss, Cardiovascular: Negative jmm for chest pain, palpitations, and edema, Respiratory: Negative for shortness of breath, cough, wheezing, and pleuritic chest pain. 21:58 : Positive for bleeding. 21:58 All other systems are negative. Exam: 21:58 Constitutional: This is a well developed, well nourished patient who is awake, alert, jmm and in no acute distress. Head/Face: atraumatic. Eyes: EOMI, no conjunctival erythema appreciated ENT: Moist Mucus Membranes Neck: Trachea midline, Supple Chest/axilla: Normal chest wall appearance and motion. Cardiovascular: Regular rate and rhythm. No edema appreciated Respiratory: Normal respirations, no respiratory distress appreciated Abdomen/GI: Non distended, soft Back: Normal ROM Skin: General appearance color normal MS/ Extremity: Moves all extremities, no obvious deformities appreciated, no edema noted to the lower extremities Neuro: Awake and alert, normal gait Psych: Behavior is normal, Mood is normal, Patient is cooperative and pleasant 04/04 01:23 : Pelvic Exam: Speculum exam: mild bleeding, os that is closed. [facility] Vital Signs: 04/03 21:50 BP 109 / 72; Pulse 84; Resp 18; Temp 98.1(TE); Pulse Ox 100% on R/A; Weight 61.23 kg; lp1 MDM: 22:47 Patient medically screened. [facility] 04/04 01:23 Data reviewed: vital signs, nurses notes. Counseling: I had a detailed discussion with [facility] the patient and/or guardian regarding: the historical points, exam findings, and any diagnostic results supporting the discharge/admit diagnosis, the need for outpatient follow up, to return to the emergency department if symptoms worsen or persist or if there are any questions or concerns that arise at home. ED course: Patient is alert and non toxic in appearance in the ED. HGB 9.7, VS normal, hemodynamically stable. Patient advised to closely follow up with HEEL BREASTER and otherwise given strict return precautions. . 04/03 21:58 Order name: CBC with Diff; Complete Time: 00:27 [facility] 04/03 21:58 Order name: CMP; Complete Time: 23:24 [facility] 04/03 22:47 Order name: Type And Screen [facility] 04/03 23:41 Order name: CBC Smear Scan; Complete Time: 00:27 [facility] 04/03 21:58 Order name: Saline Lock; Complete Time: 22:54 [facility] 04/03 23:09 Order name: Pelvic Exam Setup; Complete Time: 00:55 [facility] Administered Medications: 04/03 23:08 Drug: NS 0.9% 1000 ml Route: IV; Rate: 1 bolus; Site: right forearm; jd3 04/04 01:00 Drug: fentaNYL (PF) 25 mcg Route: IVP; Site: right forearm; lp1 Disposition: 04/04/20 01:27 Discharged to Home. Impression: Abnormal uterine and vaginal bleeding, unspecified. - Condition is Stable. - Discharge Instructions: Abnormal Uterine Bleeding. - Medication Reconciliation Form, Thank You Letter, Antibiotic Education, Prescription Opioid Use form. - Follow up: Kristan Hurtado MD; When: 2 - 3 days; Reason: Recheck today's complaints, Continuance of care, Re-evaluation by your physician. Signatures: Dispatcher [employer] EDJosé Moses PA PA jmm Pena, Laura RN RN lp1 Beau Fernandez RN RN jd3 Corrections: (The following items were deleted from the chart) 01:53 01:27 04/04/2020 01:27 Discharged to Home. Impression: Abnormal uterine and vaginal lp1 bleeding, unspecified. Condition is Stable. Forms are Medication Reconciliation Form, Thank You Letter, Antibiotic Education, Prescription Opioid Use. Follow up: Kristan Hurtado; When: 2 - 3 days; Reason: Recheck today's complaints, Continuance of care, Re-evaluation by your physician. earenst
--- NOTE | 2020-04-04 01:27 | ER ---
Nurse's Notes [facility] Name: Jennifer Salazar Age: 44 yrs Sex: Female : 1975 Arrival Date: 04/03/2020 Time: 21:36 Bed 8 Private MD: Diagnosis: Abnormal uterine and vaginal bleeding, unspecified Presentation: 04/03 21:50 Chief complaint: Patient states: Has had heavy menstrual cycle that began yesterday, lp1 with clots; States feeling like she is going to pass out; Denies hx of previous heavy menstrual cycles; Complaint of low back pain. 21:50 Coronavirus screen: Proceed with normal triage. Ebola Screen: No symptoms or risks lp1 identified at this time. Initial Sepsis Screen: Does the patient meet any 2 criteria? No. Patient's initial sepsis screen is negative. Does the patient have a suspected source of infection? No. Patient's initial sepsis screen is negative. Risk Assessment: Do you want to hurt yourself or someone else? Patient reports no desire to harm self or others. Onset of symptoms was April 02, 2020. 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 - Social history:: Smoking status: Patient reports the use of cigarette tobacco products, denies chronic smoking, but will smoke occasionally. Screenin:14 Abuse screen: Denies threats or abuse. Denies injuries from another. Nutritional lp1 screening: No deficits noted. Tuberculosis screening: No symptoms or risk factors identified. Vital Signs: 21:50 BP 109 / 72; Pulse 84; Resp 18; Temp 98.1(TE); Pulse Ox 100% on R/A; Weight 61.23 kg; lp1 ED Course: 21:36 Patient arrived in ED. cl3 21:57 [facility] 21:57 Nicholas Vargas DO is Attending Physician. jmm 22:13 Triage completed. lp1 22:13 Arm band placed on. lp1 22:45 Inserted saline lock: 20 gauge in right forearm, using aseptic technique. Blood ds4 collected. 22:54 CMP Sent. ds4 22:54 CBC with Diff Sent. ds4 22:58 Beau Fernandez, RN is Primary Nurse. jd3 04/04 01:08 Assist provider with pelvic exam: Set up pelvic tray. Performed by José CAMARILLO. lp1 01:26 Kristan Hurtado MD is Referral Physician. [facility] Administered Medications: 04/03 23:08 Drug: NS 0.9% 1000 ml Route: IV; Rate: 1 bolus; Site: right forearm; jd3 04/04 01:00 Drug: fentaNYL (PF) 25 mcg Route: IVP; Site: right forearm; lp1 Outcome: 01:27 Discharge ordered by . [facility] 01:53 Patient left the ED. lp1 Signatures: José Medina PA PA [facility] Beatrice Guajardo RN RN lp1 Agustin Ramirez ds4 Beau Fernandez RN RN jd3 Marline Jean cl3 Corrections: (The following items were deleted from the chart) 04/03 22:19 21:50 BP 109 / 72; Pulse 84bpm; Resp 18bpm; Pulse Ox 100% RA; 61.23 kg; lp1 lp1
[2020-04-04 02:02] VITALS: BP 109/72; TEMP 98.1; O2SAT 100
== END 2020-04-04 01:53 | disposition home or self-care (01) ==
LOC: ER 21:35
DX: N93.9 Abnormal uterine and vaginal bleeding, unspecified (principal); F31.9 Bipolar disorder, unspecified; F20.9 Schizophrenia, unspecified; Z72.0 Tobacco use
CPT/HCPCS: 85025; 36415; 86900; 86850; 86901; 80053; 96374; 99284; J3010; J7030

== ENCOUNTER 2020-09-01 10:31 | Emergency (ER) | payer OTHER ==
[2020-09-01] MEDS ORDERED: HYDROCODONE/APAP 7.5/325 MG TAB ONE (10:53)
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
--- NOTE | 2020-09-01 11:25 | RAD REPORT ---
EXAM DESCRIPTION: RAD - Hand Right 3 View - 09/01/2020 11:16 am CLINICAL HISTORY: Right hand pain status post injury FINDINGS: Mildly to moderately displaced oblique fracture involves the mid to distal aspect of third middle phalanx. The fracture extends intraarticularly. No dislocation
[2020-09-01] MEDS ORDERED: ALPRAZOLAM 1 MG TABLET ONE (11:29)
[2020-09-01 11:35] VITALS: BP 144/93; TEMP 97.8; O2SAT 100
== END 2020-09-01 11:26 | disposition home or self-care (01) ==
LOC: ER 10:31
PROC: 2W3JX1Z Immobilization of Right Finger using Splint (ICD-10-PCS; principal; 2020-09-01)
DX: S62.622A Displaced fracture of middle phalanx of right middle finger, initial encounter for closed fracture (principal); X58.XXXA Exposure to other specified factors, initial encounter; Y93.9 Activity, unspecified; Y92.9 Unspecified place or not applicable; Z88.5 Allergy status to narcotic agent; F17.210 Nicotine dependence, cigarettes, uncomplicated; F20.9 Schizophrenia, unspecified; F31.9 Bipolar disorder, unspecified
CPT/HCPCS: 99283

== ENCOUNTER 2021-03-31 16:48 | Emergency (ER) | payer OTHER ==
--- OUTSIDE RECORDS SUMMARY | 2021-03-31 16:51 | XMS REPORT | Continuity of Care Document ---
:1975 Author Organization [facility] t Address [address] [place] [address] Care Team Providers Name Role Phone Edward Borden Attending Clinician Stiven RYDER Attending Clinician Unavailable DR Haydee FONTANEZ Attending Clinician Unavailable DR Haydee FONTANEZ Admitting Clinician Unavailable Problems Condition Condition Condition Status Onset [...] Date Date Medication? Clinician (SIG) Name Name Tylzachariah # 3 Tylenol # 3 2019-0 2019- No Mac one tab [facility] 5-06-06 [facility] Acetaminoph Acetaminoph Yes Mac not [facility] en-Codeine en-Codeine [facility] defined [facility] Lorazepam Lorazepam Yes Mac [address] [facility] [place] at bedtime [facility] as needed [facility] Effexor Effexor Yes Mac [address] [facility] [place] with food [facility] Klonopin Klonopin Yes Mac [address] [place] Zoloft Zoloft Yes Mac [address] [facility] Depakote Depakote Yes [facility] not [facility] Procedures This patient has no known procedures. Encounters Start End Encounter Admission Attending Care Care Encounter Source Date/Time Date/Time Type Type Clinicians Facility Department ID 2020-10-25 2020-10-25 Telephone [place] [facility] [id number] 00:00:00 00:00:00 [facility] [id number] Surgical [id number] Specialti [id number] [address] [place] 2020-10-14 2020-10-14 Telephone [place] She[facility] [id number] 00:00:00 00:00:00 [facility] [id number] CARE [id number] PAVILLION [id number] 2020-10-14 2020-10-14 Nurse LUCÍA Saleem [id number] 00:00:00 00:00:00 Triage Monie MAYAY [id number] HOSPITAL [id number] 2020-10-04 2020-10-04 [facility] [id number] 00:00:00 00:00:00 Assessment [facility] [id number] Surgical [id number] Specialti [id number] es [address] [place] 2020-09-30 2020-09-30 Becker Silver [facility] [id number] 00:00:00 00:00:00 [facility] [id number] Surgical [id number] Specialti [id number] es [address] [place] 2019-05-20 2019-05-20 [facility] [id number] [facility] 16:15:00 16:15:00 [facility] 2019-05-07 2019-05-07 [facility] [id number] 15:30:00 15:30:00 [facility] 2019-05-07 2019-05-07 [facility] [id number] [address] 14:28:00 14:28:00 [facility] 2019-05-06 2019-05-06 [facility] [id number] 11:28:00 11:28:00 [facility] 2019-05-05 2019-05-05 [facility] [id number] 14:00:00 14:00:00 [facility] 2019-04-28 2019-04-28 [facility] [id number] 09:30:00 09:30:00 t [facility] 2019-04-24 2019-04-24 [facility] [id number] 10:53:00 10:53:00 t [facility] 2019-04-24 2019-04-24 Outpatient [facility]on [facility] [id number] 10:06:00 10:06:00 [facility] 2019-01-12 2019-01-12 Outpatient [facility]on [facility] [id number] 10:00:00 10:00:00 t [facility] [employer] [facility] Medicine [facility] 2013-04-14 2013-04-14 Emergency E [place], [facility] [id number] [facility] 00:19:00 [facility]00 [facility] Results This patient has no known results.
[2021-03-31] MEDS ORDERED: IBUPROFEN 400 MG TAB ONE (17:38)
[2021-03-31] MEDS ORDERED: LORAZEPAM 0.5 MG TABLET ONE (17:45)
--- NOTE | 2021-03-31 17:59 | RAD REPORT ---
EXAM DESCRIPTION: RAD - Shoulder Left 2 View - 03/31/2021 5:40 pm CLINICAL HISTORY: PAIN COMPARISON: No comparisons TECHNIQUE: Internal and external rotation views of the left shoulder were obtained. FINDINGS: There is no fracture or dislocation. AC joint is normal in appearance. No acute or suspici ous findings. IMPRESSION: Negative two-view left shoulder examination for acute findings.
--- NOTE | 2021-03-31 18:02 | RAD REPORT ---
EXAM DESCRIPTION: CT - Head Brain Wo Cont - 03/31/2021 5:50 pm CLINICAL HISTORY: Confused;Headache COMPARISON: HEAD BRAIN W O CONTRAST dated 10/24/2011 TECHNIQUE: Axial 5 mm thick images of the head were obtained without IV contrast. All CT scans are performed using dose optimization technique as appropriate and may include automated exposure control or mA/KV adjustment according to patient size. FINDINGS: No intracranial hemorrhage, mass, edema or shift of mid-line structures. No acute infarcti on changes seen. No abnormal extra-axial fluid collections. Ventricles are normal. Mastoid air cells and visualized portions of the paranasal sinuses are clear. Nasal septum deviation is present similar to comparison. No acute bony findings. IMPRESSION: Negative non-contrast CT head examination for acute finding No significant change from 2010.
--- NOTE | 2021-03-31 19:19 | EDPHYS ---
Physician Documentation [facility] Name: Jennifer Salazar Age: 45 yrs Sex: Female : 1975 Arrival Date: 03/31/2021 Time: 16:51 Bed 19 Private MD: ED Physician Terry Stewart HPI: 03/31 17:16 This 45 yrs old Female presents to ER via EMS with complaints of Anxiety. kdr 17:16 The patient presents to the emergency department with anxiety, over unknown kdr circumstances. Onset: The symptoms/episode began/occurred suddenly, 3 day(s) ago. Past psychiatric history: Prior diagnosis: bipolar disorder, depression, schizophrenia, Psychiatric medications include: The patient states that she abruptly stopped all of her psych meds about 3 days ago. States that she felt over medicated and wanted to get off of her meds. . Associated signs and symptoms: Pertinent positives; anxiety, Left shoulder and head pain from a fall. The details are unknown. Severity of symptoms: At their worst the symptoms were in the emergency department the symptoms are unchanged. Unable to obtain HPI due to patient distress. It is unknown whether or not the patient has had similar symptoms in the past. The patient has not recently seen a physician. UROLOGY NURSE: 18:50 LMP N/A - unknown ca1 Historical: - Allergies: 17:10 Naproxen; vg1 - Home Meds: 17:10 Ambien Oral [Active]; Depakote Oral [Active]; Trazodone Oral [Active]; Xanax 2 mg Oral vg1 tab 1 tab 3 times per day [Active]; Zoloft Oral [Active]; - PMHx: 17:10 Anxiety; Bipolar disorder; Depression; Schizophrenia; vg1 - PSHx: 18:23 Hernia repair; Appendectomy; Cholecystectomy; ca1 - Immunization history:: Adult Immunizations up to date. - Social history:: Smoking status: Patient reports the use of cigarette tobacco products, Reported history of juuling and/or vaping. ROS: 17:16 Constitutional: Negative for fever, chills, and weight loss, Eyes: Negative for injury, kdr pain, redness, and discharge, ENT: Negative for injury, pain, and discharge, Neck: Negative for injury, pain, and swelling, Cardiovascular: Negative for chest pain, palpitations, and edema, Respiratory: Negative for shortness of breath, cough, wheezing, and pleuritic chest pain, Abdomen/GI: Negative for abdominal pain, nausea, vomiting, diarrhea, and constipation, Back: Negative for injury and pain, : Negative for injury, bleeding, discharge, and swelling, MS/Extremity: Negative for injury and deformity, Skin: Negative for injury, rash, and discoloration, Neuro: Negative for headache, weakness, numbness, tingling, and seizure activity. Allergy/Immunology: Negative for hives, rash, and allergies, Endocrine: Negative for neck swelling, polydipsia, polyuria, polyphagia, and marked weight changes, Hematologic/Lymphatic: Negative for swollen nodes, abnormal bleeding, and unusual bruising. 17:16 Psych: Positive for anxiety, Negative for anxiety, depression, alcohol dependence, auditory hallucinations, visual hallucinations, homicidal ideation, insomnia, suicide gesture, suicidal ideation, acute changes. Exam: 17:16 Constitutional: This is a well developed, well nourished patient who is awake, alert, kdr and in no acute distress. Head/Face: Normocephalic, atraumatic. Eyes: Pupils equal round and reactive to light, extra-ocular motions intact. Lids and lashes normal. Conjunctiva and sclera are non-icteric and not injected. Cornea within normal limits. Periorbital areas with no swelling, redness, or edema. Neck: Trachea midline, no thyromegaly or masses palpated, and no cervical lymphadenopathy. Supple, full range of motion without nuchal rigidity, or vertebral point tenderness. No Meningismus. Chest/axilla: Normal chest wall appearance and motion. Nontender with no deformity. No lesions are appreciated. Cardiovascular: Regular rate and rhythm with a normal S1 and S2. No gallops, murmurs, or rubs. Normal PMI, no JVD. No pulse deficits. Respiratory: Lungs have equal breath sounds bilaterally, clear to auscultation and percussion. No rales, rhonchi or wheezes noted. No increased work of breathing, no retractions or nasal flaring. Abdomen/GI: Soft, non-tender, with normal bowel sounds. No distension or tympany. No guarding or rebound. No evidence of tenderness throughout. Back: No spinal tenderness. No costovertebral tenderness. Full range of motion. Female : Normal external genitalia. Skin: Warm, dry with normal turgor. Normal color with no rashes, no lesions, and no evidence of cellulitis. MS/ Extremity: Pulses equal, no cyanosis. Neurovascular intact. Full, normal range of motion. Neuro: Awake and alert, GCS 15, oriented to person, place, time, and situation. Cranial nerves II-XII grossly intact. Motor strength 5/5 in all extremities. Sensory grossly intact. Cerebellar exam normal. Normal gait. 17:16 Psych: Behavior/mood is anxious, depressed, inappropriate for age, Affect is calm, animated, Oriented to person, place, time, Patient has no thoughts/intents to harm self or others. Judgement / Insight is normal. Delusions/hallucinations are not present. Vital Signs: 17:06 BP 118 / 86; Pulse 79; Resp 17; Temp 98.1; Pulse Ox 100% on R/A; Weight 72.57 kg; ca1 Height 5 ft. 5 in. (165.10 cm); Pain 8/10; 18:24 BP 115 / 81; Pulse 86; Resp 16 S; Pulse Ox 100% on R/A; ca1 17:06 Body Mass Index 26.63 (72.57 kg, 165.10 cm) ca1 MDM: 19:19 Patient medically screened. kdr 19:20 Data reviewed: vital signs, nurses notes, lab test result(s), radiologic studies. kdr Counseling: I had a detailed discussion with the patient and/or guardian regarding: the historical points, exam findings, and any diagnostic results supporting the discharge/admit diagnosis, lab results, radiology results, the need for outpatient follow up. 03/31 17:15 Order name: Depakote; Complete Time: 19:19 kdr 03/31 17:14 Order name: Shoulder Left (2 View) XRAY; Complete Time: 19:19 kdr 03/31 17:14 Order name: CT Head Brain wo Cont; Complete Time: 19:19 kdr Administered Medications: 17:20 Drug: Motrin (ibuprofen) 800 mg Route: PO; ca1 19:34 Follow up: Response: No adverse reaction ea 17:33 Drug: Ativan (LORazepam) 1 mg Route: PO; ca1 19:34 Follow up: Response: No adverse reaction ea Disposition: 03/31/21 19:19 Discharged to Home. Impression: Anxiety, Medication mismanagement, Bipolar disorder, Depression, Schizophrenia. - Condition is Stable. - Discharge Instructions: Bipolar Disorder, Schizophrenia, Generalized Anxiety Disorder, Persistent Depressive Disorder, [id number]. - Prescriptions for Ativan 1 mg Oral Tablet - take 1 tablet by ORAL route every 8 hours As needed; 3 tablet. - Medication Reconciliation Form, Thank You Letter form. - Follow up: Private Physician; When: 2 - 3 days; Reason: If symptoms return, Further diagnostic work-up, Recheck today's complaints, Continuance of care, Re-evaluation by your physician. - Problem is new. - Symptoms are unchanged. Signatures: Dispatcher [employer] EDMS Terry Stewart MD MD kdr Rose Marie Sim RN RN ea Jasmin, Katherine, RN RN ca1 Steph Johnson RN RN vg1 Corrections: (The following items were deleted from the chart) 19:38 19:19 03/31/2021 19:19 Discharged to Home. Impression: Anxiety, Medication ea mismanagement, Bipolar disorder, Depression, Schizophrenia. Condition is Stable. Forms are Medication Reconciliation Form, Thank You Letter, Antibiotic Education, Prescription Opioid Use. Follow up: Private Physician; When: 2 - 3 days; Reason: If symptoms return, Further diagnostic work-up, Recheck today's complaints, Continuance of care, Re-evaluation by your physician. Problem is new. Symptoms are unchanged. kdr
--- NOTE | 2021-03-31 19:19 | ER ---
Nurse's Notes [facility] Name: Jennifer Salazar Age: 45 yrs Sex: Female : 1975 Arrival Date: 03/31/2021 Time: 16:51 Bed 19 Private MD: Diagnosis: Anxiety, Medication mismanagement, Bipolar disorder, Depression, Schizophrenia Presentation: 03/31 16:52 Acuity: BECKY 3 ca1 16:52 Chief complaint:. Coronavirus screen: Client denies travel out of the [place] in the last ca1 14 days. At this time, the client does not indicate any symptoms associated with coronavirus-19. Ebola Screen: Patient negative for fever greater than or equal to 101.5 degrees Fahrenheit, and additional compatible Ebola Virus Disease symptoms Patient denies exposure to infectious person. Patient denies travel to an Ebola-affected area in the 21 days before illness onset. No symptoms or risks identified at this time. Initial Sepsis Screen: Does the patient meet any 2 criteria? No. Patient's initial sepsis screen is negative. Does the patient have a suspected source of infection? No. Patient's initial sepsis screen is negative. Risk Assessment: Do you want to hurt yourself or someone else? Patient reports no desire to harm self or others. Onset of symptoms was March 31, 2021. 16:52 Method Of Arrival: EMS: [facility] ca1 17:07 Chief complaint: EMS states: Pt states is feeling anxious, has a h/a, is fatigued and vg1 hasn't slept in 6 days; pt stated stopped taking medications 3 days ago. Pt denies SI/HI. Coronavirus screen: Client denies travel out of the [place] in the last 14 days. Ebola Screen: Patient negative for fever greater than or equal to 101.5 degrees Fahrenheit, and additional compatible Ebola Virus Disease symptoms. Initial Sepsis Screen: Does the patient meet any 2 criteria? No. Patient's initial sepsis screen is negative. Does the patient have a suspected source of infection? No. Patient's initial sepsis screen is negative. Risk Assessment: Do you want to hurt yourself or someone else? Patient reports no desire to harm self or others. Onset of symptoms was March 28, 2021. 17:07 Method Of Arrival: EMS: [facility] vg1 17:07 Acuity: BECKY 3 vg1 OUTPATIENT CODER: 18:50 LMP N/A - unknown ca1 Historical: - Allergies: 17:10 Naproxen; vg1 - Home Meds: 17:10 Ambien Oral [Active]; Depakote Oral [Active]; Trazodone Oral [Active]; Xanax 2 mg Oral vg1 tab 1 tab 3 times per day [Active]; Zoloft Oral [Active]; - PMHx: 17:10 Anxiety; Bipolar disorder; Depression; Schizophrenia; vg1 - PSHx: 18:23 Hernia repair; Appendectomy; Cholecystectomy; ca1 - Immunization history:: Adult Immunizations up to date. - Social history:: Smoking status: Patient reports the use of cigarette tobacco products, Reported history of juuling and/or vaping. Screenin:01 Abuse screen: Denies threats or abuse. Denies injuries from another. Nutritional ca1 screening: No deficits noted. Tuberculosis screening: No symptoms or risk factors identified. Fall Risk Fall in past 12 months (25 points). IV access (20 points). Total Borja Fall Scale indicates Low Risk Score (25-44 pts). Fall prevention measures have been instituted. Side Rails Up X 2 As available Patient and Family Educated on Fall Prevention Program and strategies. Assessment: 17:02 General: Appears in no apparent distress. comfortable, Behavior is anxious. Pain: ca1 Complains of pain in anterior aspect of left shoulder and posterior aspect of left shoulder Pain radiates to left scapular area Pain currently is 8 out of 10 on a pain scale. Pain began 2-3 days ago. Neuro: Level of Consciousness is awake, alert, obeys commands, Oriented to person, place, time, situation. Cardiovascular: Heart tones S1 S2 present Capillary refill < 3 seconds Patient's skin is warm and dry. Respiratory: Airway is patent Respiratory effort is even, unlabored, Respiratory pattern is regular, symmetrical, Breath sounds are clear bilaterally. GI: Abdomen is round non-distended, Bowel sounds present X 4 quads. Abd is soft and non tender X 4 quads. : No signs and/or symptoms were reported regarding the genitourinary system. EENT: No signs and/or symptoms were reported regarding the EENT system. Derm: Skin is intact, is healthy with good turgor, Skin is pink, warm \\T\\ dry. Musculoskeletal: Circulation, motion, and sensation intact. Capillary refill < 3 seconds. 18:22 Reassessment: Patient appears in no apparent distress at this time. No changes from ca1 previously documented assessment. Patient and/or family updated on plan of care and expected duration. Pain level reassessed. General: Behavior is agitated, anxious. 18:50 Reassessment: Reassessment: Pt states, "take this IV out. I am going to leave". Pt ca1 walked out of the room. Code Roper called. General: Behavior is agitated. 19:27 Reassessment: Patient and/or family updated on plan of care and expected duration. Pain ea level reassessed. Patient is alert, oriented x 3, equal unlabored respirations, skin warm/dry/pink. 19:34 Reassessment: Patient and/or family updated on plan of care and expected duration. Pain ea level reassessed. Patient is alert, oriented x 3, equal unlabored respirations, skin warm/dry/pink. Discharge instruction given to patient verbalized the understanding of instruction. Pt left ED ambulatory tolerating well. Vital Signs: 17:06 BP 118 / 86; Pulse 79; Resp 17; Temp 98.1; Pulse Ox 100% on R/A; Weight 72.57 kg; ca1 Height 5 ft. 5 in. (165.10 cm); Pain 8/10; 18:24 BP 115 / 81; Pulse 86; Resp 16 S; Pulse Ox 100% on R/A; ca1 17:06 Body Mass Index 26.63 (72.57 kg, 165.10 cm) ca1 ED Course: 16:51 Patient arrived in ED. em1 16:52 Terry Stewart MD is Attending Physician. kdr 16:55 Katherine Castellanos, ALEKSEY is Primary Nurse. ca1 17:01 Patient has correct armband on for positive identification. Placed in gown. Bed in low ca1 position. Call light in reach. Side rails up X2. residential monitor on. Pulse ox on. NIBP on. Warm blanket given. 17:01 Arm band placed on. ca1 17:01 Maintain EMS IV. Dressing intact. Good blood return noted. Site clean \\T\\ dry. Gauge \\T\\ ca 1 site: 20G R hand. 17:07 Triage completed. ca1 17:40 Shoulder Left (2 View) XRAY In Process Unspecified. EDMS 17:49 CT Head Brain wo Cont In Process Unspecified. EDMS 18:51 No provider procedures requiring assistance completed. IV discontinued, intact, ca1 bleeding controlled, No redness/swelling at site. Pressure dressing applied. Administered Medications: 17:20 Drug: Motrin (ibuprofen) 800 mg Route: PO; ca1 19:34 Follow up: Response: No adverse reaction ea 17:33 Drug: Ativan (LORazepam) 1 mg Route: PO; ca1 19:34 Follow up: Response: No adverse reaction ea Outcome: 19:19 Discharge ordered by . kdr 19:27 Condition: stable ea 19:34 Discharged to home ambulatory, with family. ea 19:34 Discharge instructions given to patient, Instructed on discharge instructions, follow up and referral plans. medication usage, Demonstrated understanding of instructions, follow-up care, medications, Prescriptions given X 1. 19:38 Patient left the ED. ea Signatures: Dispatcher [employer] EDMS Terry Stewart MD MD kdr Fan Bennett em1 Rose Marie Sim RN RN ea Katherine Castellanos RN RN ca1 Steph Johnson RN RN vg1 Corrections: (The following items were deleted from the chart) 17:17 17:07 Chief complaint: EMS states: Pt states is feeling anxious, has a h/a, is fatigued vg1 and hasn't slept in 6 days; pt stated stopped taking medications 3 days ago. vg1
[2021-03-31 19:51] VITALS: TEMP 98.1; O2SAT 100
[2021-03-31 19:56] VITALS: BP 115/81
== END 2021-03-31 19:38 | disposition home or self-care (01) ==
LOC: ER 16:48
DX: F25.0 Schizoaffective disorder, bipolar type (principal); Z91.14 Patient's other noncompliance with medication regimen; Z72.0 Tobacco use; Z88.6 Allergy status to analgesic agent
CPT/HCPCS: 36415; 80164; 70450; 73030; 99284; Q9967

== ENCOUNTER 2021-05-22 21:47 | Emergency (ER) | payer OTHER ==
--- OUTSIDE RECORDS SUMMARY | 2021-05-22 21:49 | XMS REPORT | Continuity of Care Document ---
:1975 Author Organization [facility] t Address [address] [place] [address] Care Team Providers Name Role Phone Edward [...] Name Tylenol # 3 Tylenol # 3 2019-0 2019- No Mac one tab [facility] 5-23 07-27 [facility] - 00:00: 00:00 Memoria 00 [...] Clinicians Facility Department ID 2020-10-25 2020-10-25 Telephone [facility] [id number] 00:00:00 00:00:00 [facility] [id number] Surgical [id number] Specialti [id number] [place] 2020-10-14 2020-10-14 Telephone [facility] [id number] 00:00:00 00:00:00 [facility] [id number] CARE [id number] PAVILLION [id number] 198 2020-10-14 2020-10-14 Nurse LUCÍA Saleem [id number] 00:00:00 00:00:00 Triage Moniejanel HADDAD [id number] HOSPITAL [id number] 2020-10-04 2020-10-04 [facility] [id number] 00:00:00 00:00:00 Assessment [facility] [id number] Surgical [id number] Specialti [id number] es 198 [place] 2020-09-30 2020-09-30 [place] [facility] [id number] 00:00:00 00:00:00 [facility] [id number] Surgical [id number] Specialti [id number] es 198 [place] 2019-05-20 2019-05-20 [facility] [id number] [facility] 16:15:00 16:15:00 [facility] 2019-05-07 2019-05-07 [facility] [id number] [facility] 15:30:00 15:30:00 [facility] 2019-05-07 2019-05-07 [facility] [id number] [facility] 14:28:00 14:28:00 [facility] 2019-05-06 2019-05-06 [facility] [id number] [facility] 11:28:00 11:28:00 [facility] 2019-05-05 2019-05-05 [facility] [id number] 14:00:00 14:00:00 [facility] 2019-04-28 2019-04-28 [facility] [id number] 09:30:00 09:30:00 [facility] 2019-04-24 2019-04-24 [facility] [id number] [facility] 10:53:00 10:53:00 [facility] Clinics 2019-04-24 2019-04-24 Outpatient [facility]on [facility] [id number] 10:06:00 10:06:00 t [facility] Clin[facility] 2019-01-12 2019-01-12 Outpatient [facility]on [facility] [id number] 10:00:00 10:00:00 t [place] [facility] ent [facility] 2013-04-14 2013-04-14 Emergency E [facility] [id number] [facility] 00:19:00 03:12:00 [facility] Results This patient has no known results.
[2021-05-23] MEDS ORDERED: LORazepam 2 MG/ML VIAL ONE (00:41)
--- NOTE | 2021-05-23 02:15 | EDPHYS ---
Physician Documentation [facility] Name: Jennifer Salazar Age: 46 yrs Sex: Female : 1975 Arrival Date: 05/22/2021 Time: 21:50 Bed 20 Private MD: ELLIOTT Physician Bruce Jackson HPI: 05/23 00:09 This 46 yrs old Female presents to ER via Ambulatory with complaints of pm1 Anxiety and depression. 00:09 Onset: The symptoms/episode began/occurred 1 week(s) ago. Associated signs and pm1 symptoms: Pertinent negatives: abdominal pain, chest pain, fever, shortness of breath. Modifying factors: the patient symptoms are aggravated by Lack of medication compliance. 00:09 The patient has experienced similar episodes in the past, several times, today's pm1 symptoms are similar, to previous to prior visit to the ER here in March 2021. Patient with noncompliance to medications. The patient has been recently seen by a physician: with similar presenting complaints, Reports seeing her psychiatrist at [facility] who changed her medications 1 week ago. Patient is not taking her medications as directed. . SOUND CUTTER: 05/22 22:12 LMP 05/01/2021 ca1 Historical: - Allergies: 22:11 Naproxen; ca1 - PMHx: 22:11 Anxiety; Bipolar disorder; Depression; Schizophrenia; ca1 - Immunization history:: Client reports having NOT received the Covid vaccine. Flu vaccine is not up to date. - Social history:: Smoking status: Patient reports the use of cigarette tobacco products, cigars. ROS: 05/23 00:09 Constitutional: Negative for fever, chills, and weight loss, Cardiovascular: Negative pm1 for chest pain, palpitations, and edema, Respiratory: Negative for shortness of breath, cough, wheezing, and pleuritic chest pain, Abdomen/GI: Negative for abdominal pain, nausea, vomiting, diarrhea, and constipation, MS/Extremity: Negative for injury and deformity, Skin: Negative for injury, rash, and discoloration, Neuro: Negative for headache, weakness, numbness, tingling, and seizure. Psych: Positive for anxiety, depression, Negative for drug dependence, alcohol dependence, auditory hallucinations, visual hallucinations, suicidal ideation. Exam: 00:09 Constitutional: This is a well developed, well nourished patient who is awake, alert, pm1 and in no acute distress. Head/Face: Normocephalic, atraumatic. 00:09 Skin: Warm, dry with normal turgor. Normal color with no rashes, no lesions, and no evidence of cellulitis. MS/ Extremity: Pulses equal, no cyanosis. Neurovascular intact. Full, normal range of motion. 00:09 Eyes: Exam is negative for acute changes, Pupils: no acute changes, Extraocular movements: no acute changes, Conjunctiva: no acute changes, no injection. 00:09 ENT: Exam is negative for acute changes, Mouth: Lips: normal, Oral mucosa: normal, pink and intact, moist. 00:09 Cardiovascular: Exam negative for acute changes, Rate: normal, Rhythm: regular, Pulses: no pulse deficits are appreciated. 00:09 Respiratory: Exam negative for acute changes, respiratory distress, shortness of breath. 00:09 Abdomen/GI: Exam negative for acute changes, Inspection: abdomen appears normal, Palpation: abdomen is soft and non-tender, in all quadrants. 00:09 Neuro: Exam negative for acute changes, Orientation: is normal, Mentation: is normal, Motor: is normal, moves all fours. 00:09 Psych: Behavior/mood is anxious, Affect is animated, Oriented to person, place, time, Patient has no thoughts/intents to harm self or others. Delusions/hallucinations are not present. Vital Signs: 05/22 22:09 BP 115 / 84; Pulse 83; Resp 16; Temp 97.2(TE); Pulse Ox 98% on R/A; Weight 73.48 kg ca1 (R); Height 5 ft. 5 in. (165.10 cm) (R); Pain 0/10; 05/23 02:47 BP 117 / 84; Pulse 82; Resp 16; Pulse Ox 98% on R/A; jm8 05/22 22:09 Body Mass Index 26.96 (73.48 kg, 165.10 cm) ca1 MDM: 05/22 23:29 Patient medically screened. pm1 05/23 01:40 Data reviewed: vital signs. Data interpreted: Pulse oximetry: on room air is 98 %. pm1 Interpretation: normal. 02:13 Counseling: I had a detailed discussion with the patient and/or guardian regarding: the pm1 historical points, exam findings, and any diagnostic results supporting the discharge/admit diagnosis. 05/23 00:08 Order name: Amanda; Complete Time: 02:13 pm1 Administered Medications: 00:38 Drug: Ativan (LORazepam) 1 mg Route: IVP; Site: right wrist; jm8 02:44 Follow up: Response: No adverse reaction jm8 Disposition: :21 Co-signature as Attending Physician, Bruce Jackson MD I agree with the assessment and soy plan of care. Disposition Summary: 05/23/21 02:15 Discharge Ordered Location: Home pm1 Problem: new pm1 Symptoms: have improved pm1 Condition: Stable pm1 Diagnosis - Anxiety disorder, unspecified pm1 - Bipolar disorder, unspecified pm1 - Patient's other noncompliance with medication regimen pm1 Followup: pm1 - With: Emergency Department - When: As needed - Reason: Worsening of condition Followup: pm1 - With: Private Physician - When: 2 - 3 days - Reason: Recheck today's complaints, Continuance of care, Re-evaluation by your physician Discharge Instructions: - Discharge Summary Sheet pm1 - Generalized Anxiety Disorder, Adult pm1 - Managing Bipolar Disorder pm1 Forms: - Medication Reconciliation Form pm1 - Thank You Letter pm1 - Antibiotic Education pm1 - Prescription Opioid Use pm1 Signatures: Dispatcher [employer] EDMS Bruce Jackson MD MD cha Marinas, Patrick, ADOLPH RETINAL ANGIOGRAPHER pm1 Katherine Castellanos, RN ALEKSEY ca1 Marco Ware RN RN jm8
--- NOTE | 2021-05-23 02:15 | ER ---
Nurse's Notes [facility] Name: Jennifer Salazar Age: 46 yrs Sex: Female : 1975 Arrival Date: 05/22/2021 Time: 21:50 Bed 20 Private MD: Diagnosis: Anxiety disorder, unspecified;Bipolar disorder, unspecified;Patient's other noncompliance with medication regimen Presentation: 05/22 22:09 Chief complaint: Patient states: I have psych meds and I stop taking them, I start ca1 taking them, I stop them again for about 2 weeks not. Now I feel anxious, I have tremors and haven't slept much. I need to go to a facilty. Coronavirus screen: Client denies travel out of the [place] in the last 14 days. At this time, the client does not indicate any symptoms associated with coronavirus-19. Ebola Screen: Patient negative for fever greater than or equal to 101.5 degrees Fahrenheit, and additional compatible Ebola Virus Disease symptoms Patient denies exposure to infectious person. Patient denies travel to an Ebola-affected area in the 21 days before illness onset. No symptoms or risks identified at this time. Initial Sepsis Screen: Does the patient meet any 2 criteria? No. Patient's initial sepsis screen is negative. Does the patient have a suspected source of infection? No. Patient's initial sepsis screen is negative. Risk Assessment: Do you want to hurt yourself or someone else? Patient reports no desire to harm self or others. Onset of symptoms was May 22, 2021. 22:09 Method Of Arrival: Ambulatory ca1 22:09 Acuity: BECKY 3 ca1 TRAFFIC AGENT: 22:12 LMP 05/01/2021 ca1 Historical: - Allergies: 22:11 Naproxen; ca1 - PMHx: 22:11 Anxiety; Bipolar disorder; Depression; Schizophrenia; ca1 - Immunization history:: Client reports having NOT received the Covid vaccine. Flu vaccine is not up to date. - Social history:: Smoking status: Patient reports the use of cigarette tobacco products, cigars. Screenin/13 00:42 Abuse screen: Denies threats or abuse. Denies injuries from another. Nutritional jm8 screening: On. Nutritional screening: No deficits noted. Tuberculosis screening: No symptoms or risk factors identified. Fall Risk None identified. Assessment: 00:39 General: Appears in no apparent distress. comfortable, Behavior is calm, cooperative, jm8 appropriate for age. Pain: Denies pain. Neuro: No deficits noted. Level of Consciousness is awake, alert, obeys commands, Oriented to person, place, time. Cardiovascular: No deficits noted. Respiratory: No deficits noted. Airway is patent Trachea midline Respiratory effort is even, unlabored, Respiratory pattern is regular, symmetrical. GI: No deficits noted. No signs and/or symptoms were reported involving the gastrointestinal system. : No deficits noted. No signs and/or symptoms were reported regarding the genitourinary system. EENT: No deficits noted. No signs and/or symptoms were reported regarding the EENT system. Derm: No deficits noted. No signs and/or symptoms reported regarding the dermatologic system. Musculoskeletal: No deficits noted. No signs and/or symptoms reported regarding the musculoskeletal system. Psych: 00:40 [place] Suicide Severity Screening: In the past month, have you wished you were jm8 or wished you could go to sleep and not wake up? Patient responds "No." "In the past month, have you actually had any thoughts of killing yourself?" Patient responds "no." "In your lifetime, have you ever done anything, started to do anything, or prepared to do anything to end your life?" Patient responds "no.". Subjective: Patient's mood is sad, Delusions are denied, Hallucinations are denied. Objective: Patient is cooperative, Speech is normal, Affect is appropriate. Interventions: Patient placed in hospital gown. Searched person for dangerous items. Safety Checks: Door is open. Visitors are present. Pt denies substance abuse. Commitment: Patient will be a voluntary commitment. Patient states she is trying to get back on her medications. Denies SI/HI. Vital Signs: 05/22 22:09 BP 115 / 84; Pulse 83; Resp 16; Temp 97.2(TE); Pulse Ox 98% on R/A; Weight 73.48 kg ca1 (R); Height 5 ft. 5 in. (165.10 cm) (R); Pain 0/10; 05/23 02:47 BP 117 / 84; Pulse 82; Resp 16; Pulse Ox 98% on R/A; jm8 05/22 22:09 Body Mass Index 26.96 (73.48 kg, 165.10 cm) ca1 ED Course: 05/22 21:50 Patient arrived in ED. cf2 22:11 Triage completed. ca1 22:11 Arm band placed on right wrist. ca1 23:28 Clark Gómez NP is PHCP. pm1 23:28 Bruce Jackson MD is Attending Physician. pm1 07 00:09 Inserted saline lock: 20 gauge in right wrist, using aseptic technique. jm8 00:42 Patient has correct armband on for positive identification. Bed in low position. Call jm8 light in reach. Side rails up X2. Adult w/ patient. 02:45 No provider procedures requiring assistance completed. IV discontinued, intact, jm8 bleeding controlled, No redness/swelling at site. Administered Medications: 00:38 Drug: Ativan (LORazepam) 1 mg Route: IVP; Site: right wrist; jm8 02:44 Follow up: Response: No adverse reaction jm8 Outcome: 02:15 Discharge ordered by . pm1 02:46 Discharged to home ambulatory. jm8 02:46 Condition: good 02:46 Discharge instructions given to patient, family, Instructed on discharge instructions, follow up and referral plans. medication usage, Demonstrated understanding of instructions, follow-up care, medications. 02:47 Patient left the ED. jm8 Signatures: Clark Gómez NP ER TECH pm1 Katherine Castellanos RN RN ca1 Cindi Hankins cf2 Marco Ware RN RN jm8 Corrections: (The following items were deleted from the chart) 00:42 00:39 [place] Suicide Severity Screening: 8 Lizzy
[2021-05-23 03:00] VITALS: TEMP 97.2; O2SAT 98
[2021-05-23 03:02] VITALS: BP 117/84
== END 2021-05-23 02:47 | disposition home or self-care (01) ==
LOC: ER 21:47
DX: F31.9 Bipolar disorder, unspecified (principal); Z91.14 Patient's other noncompliance with medication regimen; F17.290 Nicotine dependence, other tobacco product, uncomplicated; Z88.5 Allergy status to narcotic agent
CPT/HCPCS: 36415; 80164; 96374; 99284

== ENCOUNTER 2021-07-02 14:47 | Emergency (ER) | payer OTHER ==
--- OUTSIDE RECORDS SUMMARY | 2021-07-02 14:49 | XMS REPORT | Continuity of Care Document ---
:1975 Author Organization [facility] t Address [address] [place] [address] Care Team Providers Name Role Phone Doctor Unassigned, Name Attending Clinician Unavailable Edward Borden Attending Clinician Stiven RYDER Attending [...] Date Date Medication? Clinician (SIG) Name Name Anisa # 3 Anisa # 3 2019-0 2019- No Mac one [...] Date/Time Type Type Clinicians Facility Department ID 2021-07-02 2021-07-02 Orders Doctor LUCÍA [id number] 00:00:00 00:00:00 Only Unassigned, CATIE [id number] [facility] [id number] 2020-10-25 2020-10-25 Telephone Silver [facility] [id number] 00:00:00 00:00:00 [facility] [id number] Surgical [id number] Specialti [id number] [address] [place] 2020-10-14 2020-10-14 Telephone Silver [facility] [id number] 00:00:00 00:00:00 [facility] [id number] CARE [id number] PAVILLION [id number] 198 2020-10-14 2020-10-14 Nurse LUCÍA Saleem [id number] 00:00:00 00:00:00 Triage Monie HADDAD [id number] HOSPITAL [id number] 019 2020-10-04 2020-10-04 Clinic [facility] [id number] 00:00:00 00:00:00 Assessment [facility] [id number] Surgical [id number] Specialti [id number] es [address] [place] 2020-09-30 2020-09-30 Telephone [facility] [id number] 00:00:00 00:00:00 [facility] [id number] Surgical [id number] Specialti [id number] es [address] [place] 2019-05-20 2019-05-20 [facility] [id number] [facility] 16:15:00 16:15:00 [facility] Clinics 2019-05-07 2019-05-07 [facility] [id number] [facility] 15:30:00 15:30:00 [facility] Clinics 2019-05-07 2019-05-07 [facility] [id number] [facility] 14:28:00 14:28:00 [facility] Clinics 2019-05-06 2019-05-06 [facility] [id number] [facility] [address] 11:28:00 11:28:00 [facility] Clinics 2019-05-05 2019-05-05 [facility] [id number] 14:00:00 14:00:00 [facility] Clinics 2019-04-28 2019-04-28 Outpatient [facility]on [facility] [id number] 09:30:00 09:30:00 [facility] 2019-04-24 2019-04-24 [facility] [id number] 10:53:00 10:53:00 [facility] 2019-04-24 2019-04-24 Outpatient [facility] [id number] 10:06:00 10:06:00 [facility] 2019-01-12 2019-01-12 Outpatient [facility] [id number] 10:00:00 10:00:00 t Grabbed [place] [facility] ent [facility] 2013-04-14 2013-04-14 Emergency E EST[facility], [facility] [id number] [facility] 00:19:00 03:12:00 [facility] Results This patient has no known results.
== END 2021-07-02 16:00 | disposition left against medical advice (07) ==
LOC: ER 14:47
DX: Z02.9 Encounter for administrative examinations, unspecified (principal)

== ENCOUNTER 2021-07-08 06:00 | Emergency (ER) | payer OTHER ==
--- OUTSIDE RECORDS SUMMARY | 2021-07-08 06:03 | XMS REPORT | Continuity of Care Document ---
:1975 Author Organization [facility] t Address [address] [place] [address] Care Team Providers Name Role Phone Doctor [...] ID 2021-07-02 2021-07-02 Orders Doctor LUCÍA [id number] 00:00:00 00:00:00 Only Unassigned, CTAIE [id number] [facility] [id number] 2020-10-25 2020-10-[address] [facility] [id number] 00:00:00 00:00:00 [facility] [id number] Surgical [id number] Specialti [id number] [address] [place] 2020-10-14 2020-10-[address] [facility] [id number] 00:00:00 00:00:00 [facility] [id number] CARE [id number] PAVILLION [id number] 198 2020-10-14 2020-10-14 Nurse Stiven LUCÍA [id number] 00:00:00 00:00:00 Triage Monie HADDAD [id number] HOSPITAL [id number] 2020-10-04 2020-10-04 Clinic [facility] [id number] 00:00:00 00:00:00 Assessment [facility] [id number] Surgical [id number] Specialti [id number] es [address] [place] 2020-09-30 2020-09-30 Telephone [facility] [id number] 00:00:00 00:00:00 [facility] [id number] Surgical [id number] Specialti [id number] es [address] [place] 2019-05-20 2019-05-20 [facility] [id number] [facility] [address] 16:15:00 16:15:00 [facility] 2019-05-07 2019-05-07 [facility] [id number] 15:30:00 15:30:00 [facility] ent Clinics 2019-05-07 2019-05-07 [facility] [id number] 14:28:00 14:28:00 [facility] Clinics 2019-05-06 2019-05-06 [facility] [id number] 11:28:00 11:28:00 [facility] 2019-05-05 2019-05-05 [facility] [id number] 14:00:00 14:00:00 [facility] Clinics 2019-04-28 2019-04-28 Outpatient Levon [facility] [id number] [facility] 09:30:00 09:30:00 [facility] 2019-04-24 2019-04-24 Outpatient [facility]on [facility] [id number] 10:53:00 10:53:00 [facility] 2019-04-24 2019-04-24 Outpatient Levon [facility] [id number] 10:06:00 10:06:00 [facility] 2019-01-12 2019-01-12 Outpatient Levon [facility] [id number] 10:00:00 10:00:00 t [employer] [facility] 2013-04-14 2013-04-14 Emergency E [facility] [id number] [facility] 00:19:00 03:12:00 [facility] Results This patient has no known results.
[2021-07-08 06:28] LABS: Urine Blood Negative (Negative); Urine Glucose Negative (Negative); Urine Protein Negative (Negative); Urine pH 5.5 (5.0-7.0)
[2021-07-08 07:27] LABS: SARS-COV-2 RT PCR NEGATIVE (NEGATIVE)
[2021-07-08 07:33] LABS: Urine Bacteria <20 /HPF (<20); Urine RBC <5 /HPF (NONE SEEN)
--- NOTE | 2021-07-08 07:40 | ER ---
Nurse's Notes [facility] Name: Jennifer Salazar Age: 46 yrs Sex: Female : 1975 Arrival Date: 07/08/2021 Time: 06:04 Bed Waiting Private MD: Diagnosis: Acute upper respiratory infection, unspecified Presentation: 07/08 06:14 Chief complaint: Patient states: had covid vaccine 3 weeks ago, symptoms started 6 days em ago, reports nasal congestion, reports fever 101.2, also reports not been able to sleep in 2 days. Coronavirus screen: Vaccine status: Patient reports receiving the 2nd dose of the covid vaccine. congestion, muscle pain. Ebola Screen: Patient negative for fever greater than or equal to 101.5 degrees Fahrenheit, and additional compatible Ebola Virus Disease symptoms Patient denies exposure to infectious person. Patient denies travel to an Ebola-affected area in the 21 days before illness onset. No symptoms or risks identified at this time. Initial Sepsis Screen: Does the patient meet any 2 criteria? No. Patient's initial sepsis screen is negative. Does the patient have a suspected source of infection? No. Patient's initial sepsis screen is negative. Risk Assessment: Do you want to hurt yourself or someone else? Patient reports no desire to harm self or others. Onset of symptoms was July 08, 2021. 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 - Social history:: Smoking status: Patient denies any tobacco usage or history of. Screenin:14 Abuse screen: Denies threats or abuse. Nutritional screening: No deficits noted. em Tuberculosis screening: No symptoms or risk factors identified. Fall Risk None identified. Assessment: 06:17 General: Appears in no apparent distress. comfortable, Behavior is calm, cooperative, em appropriate for age, Denies fever. Pain: Complains of pain in "body aches". Neuro: Level of Consciousness is awake, alert, obeys commands, Oriented to person, place, time, situation. Cardiovascular: Capillary refill < 3 seconds Patient's skin is warm and dry. Respiratory: Airway is patent Respiratory effort is even, unlabored, Respiratory pattern is regular, symmetrical. EENT: Reports nasal congestion. Derm: Skin is intact, is healthy with good turgor, Skin is pink, warm \\T\\ dry. Musculoskeletal: Capillary refill < 3 seconds, Range of motion: intact in all extremities. Vital Signs: 06:14 Pulse 70; Resp 18; Temp 97.1; Pulse Ox 99% on R/A; Weight 75.75 kg; Height 5 ft. 5 in. em (165.10 cm); Pain 9/10; 06:17 BP 105 / 72; em 06:14 Body Mass Index 27.79 (75.75 kg, 165.10 cm) em ED Course: 06:04 Patient arrived in ED. wm 06:12 May[facility] Cavazos F[facility]-C [facility] kb 06:12 Tray Cheng MD is Attending Physician. kb 06:14 Patient has correct armband on for positive identification. em 06:17 Triage completed. em 06:17 Arm band placed on. em 07:50 Marian Dawson, RN is Primary Nurse. iw Administered Medications: 07:42 Drug: Ativan (LORazepam) 1 mg Route: IM; Site: right gluteus; iw 07:45 Follow up: Response: No adverse reaction iw Outcome: 07:39 Discharge ordered by . kb 07:53 Patient left the ED. [facility] Signatures: Mayra Cavazos FNP-C FNP-Ckb Munoz, Edgar, RN RN Marian Dawson, ALEKSEY RYDER Brandi Bennett [facility] Keerthi Bryant
--- NOTE | 2021-07-08 07:40 | EDPHYS ---
Physician Documentation [facility] Name: Jennifer Salazar Age: 46 yrs Sex: Female : 1975 Arrival Date: 07/08/2021 Time: 06:04 Bed Waiting Private MD: ED Physician Tray Cheng HPI: 07/08 06:36 This 46 yrs old Female presents to ER via Ambulatory with complaints of BODY kb ACHES, JUST FEELS BAD. 06:36 The patient or guardian reports cough, described as mild, flu symptoms, low-grade kb fever, myalgias. Onset: The symptoms/episode began/occurred 6 day(s) ago. Severity of symptoms: At their worst the symptoms were moderate, in the emergency department the symptoms are unchanged. Modifying factors: The symptoms are alleviated by nothing, the symptoms are aggravated by nothing. Associated signs and symptoms: Pertinent positives: earache, fever, Pertinent negatives: chest pain, diarrhea, nausea, rhinorrhea, sore throat, vomiting. The patient has not experienced similar symptoms in the past. The patient has not recently seen a physician. Pt reports headaches, bodyaches, fever, cough, malaise for 6 days. States it feels like an upper respiratory infection. . 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 - Social history:: Smoking status: Patient denies any tobacco usage or history of. ROS: 06:36 Constitutional: Positive for body aches, chills, fatigue, fever, malaise. kb 06:36 ENT: Positive for ear pain. 06:36 Respiratory: Positive for cough, Negative for dyspnea on exertion, hemoptysis, orthopnea, pleurisy, shortness of breath, sputum production, wheezing. 06:36 Neuro: Positive for headache. 06:36 All other systems are negative. 07:40 Cardiovascular: Negative for chest pain, palpitations, and edema. kb Exam: 06:36 Constitutional: This is a well developed, well nourished patient who is awake, alert, kb and in no acute distress. Head/Face: Normocephalic, atraumatic. ENT: Moist Mucous membranes Cardiovascular: Regular rate and rhythm with a normal S1 and S2. No gallops, murmurs, or rubs. No pulse deficits. Respiratory: Respirations even and unlabored. No increased work of breathing, no retractions or nasal flaring. Abdomen/GI: Soft, non-tender. No distention Skin: Warm, dry with normal turgor. Normal color. MS/ Extremity: Pulses equal, no cyanosis. Neurovascular intact. Full, normal range of motion. Neuro: Awake and alert, GCS 15, oriented to person, place, time, and situation. Moves all extremities. Normal gait. Psych: Awake, alert, with orientation to person, place and time. Behavior, mood, and affect are within normal limits. 06:36 ENT: External ear(s): are unremarkable, Ear canal(s): are normal, TM's: are normal, Posterior pharynx: is normal. Vital Signs: 06:14 Pulse 70; Resp 18; Temp 97.1; Pulse Ox 99% on R/A; Weight 75.75 kg; Height 5 ft. 5 in. em (165.10 cm); Pain 9/10; 06:17 BP 105 / 72; em 06:14 Body Mass Index 27.79 (75.75 kg, 165.10 cm) em MDM: 06:13 Patient medically screened. kb 06:39 Data reviewed: vital signs, nurses notes. Data interpreted: Pulse oximetry: on room air kb is 99 %. Interpretation: normal. 07:39 Counseling: I had a detailed discussion with the patient and/or guardian regarding: the kb historical points, exam findings, and any diagnostic results supporting the discharge/admit diagnosis, lab results, the need for outpatient follow up, a family practitioner, to return to the emergency department if symptoms worsen or persist or if there are any questions or concerns that arise at home. 07:40 ED course: Pt requests a shot of ativan. kb 07/08 06:18 Order name: COVID-19 : Document "Date of Symptom Onset" if Symptomatic. em 07/08 06:18 Order name: Flu em 07/08 06:27 Order name: Urine Microscopic Only em 07/08 06:28 Order name: Urine Dipstick-Ancillary; Complete Time: 06:32 EDMS 07/08 06:18 Order name: Urine Dipstick-Ancillary (obtain specimen); Complete Time: 06:27 em 07/08 06:28 Order name: Urine Microscopic Only; Complete Time: 07:34 EDMS 07/08 06:32 Order name: Urine --Ancillary (enter results) eb 07/08 07:28 Order name: COVID-19/FLU A+B; Complete Time: 07:30 EDMS 07/08 07:35 Order name: Urine Culture EDMS Administered Medications: 07:42 Drug: Ativan (LORazepam) 1 mg Route: IM; Site: right gluteus; iw 07:45 Follow up: Response: No adverse reaction iw Disposition Summary: 07/08/21 07:39 Discharge Ordered Location: Home kb Condition: Stable kb Diagnosis - Acute upper respiratory infection, unspecified kb Followup: kb - With: Emergency Department - When: As needed - Reason: Worsening of condition Followup: kb - With: Private Physician - When: 2 - 3 days - Reason: Recheck today's complaints, Continuance of care, Re-evaluation by your physician Discharge Instructions: - Discharge Summary Sheet kb - Upper Respiratory Infection, Adult, [id number] kb Forms: - Medication Reconciliation Form kb - Thank You Letter kb - Antibiotic Education kb - Prescription Opioid Use kb - Work release form iw Addendum: 07/12/2021 07:06 Co-signature as Attending Physician, Tray Cheng MD. r n Signatures: Dispatcher [employer] EDVT Mayra Cavazos, SPECIAL ED ASSISTANT-C SPECIAL ED ASSISTANT-Waqar Alarcon RN ALEKSEY em Marian Dawson RN RN Tray Cheng MD MD supervisor furnace process: (The following items were deleted from the chart) 07/08 06:42 06:19 CORONAVIRUS ordered. EDMS EDMS 06:42 06:19 Influenza Screen (A ordered. EDVT EDMS
[2021-07-08 07:58] VITALS: TEMP 97.1; O2SAT 99
[2021-07-08 07:59] VITALS: BP 105/72
[2021-07-08] MEDS ORDERED: LORazepam 2 MG/ML VIAL ONE (08:07)
== END 2021-07-08 07:53 | disposition home or self-care (01) ==
LOC: ER 06:00
DX: J06.9 Acute upper respiratory infection, unspecified (principal); Z20.822 Contact with and (suspected) exposure to COVID-19; Z88.6 Allergy status to analgesic agent
CPT/HCPCS: 87088; 87086; 81025; 0240U; 96372; 99282; 81003; 81015

== ENCOUNTER 2021-11-28 14:30 | Emergency (ER) | payer OTHER ==
--- OUTSIDE RECORDS SUMMARY | 2021-11-28 14:49 | XMS REPORT | Continuity of Care Document ---
:1975 Author Organization [facility] t Address [address] [place] [address] Care Team Providers Name Role Phone Shun ROCA Attending Clinician Unavailable Doctor Unassigned, Name Attending Clinician Unavailable Lucretia MELENDEZ, S Attending Clinician Edward BOYKIN Attending Clinician Unavailable Stiven RYDER Attending Clinician Unavailable Pob, Lab Main Attending Clinician Unavailable Chanelle PELLETIER, L Attending Clinician Only, Test Attending Clinician Unavailable Lincoln PELLETIER Attending Clinician Tracey PELLETIER Attending Clinician TRACEY Attending Clinician Unavailable Matthew HILLMAN Attending Clinician Matthieu PELLETIER Attending Clinician DR Haydee FONTANEZ Attending Clinician Unavailable Shun ROCA Admitting Clinician Unavailable Shun Roca MD Admitting Clinician DR Haydee FONTANEZ Admitting Clinician Unavailable Payers Payer Name Policy Type Policy Number Effective Date Expiration Date Edward dubois [facility] STAR [id number] 2018 00:00:00 PLUS Problems Condition Condition Condition Status Onset Resolution Last Treating Co mments Source Name Details Category Date Date Treatment Clinician Date Closed Closed Disease Active 2019-11 Overview: Univer s displaced displaced 0-28 [facility] i ty of fracture fracture 00:00: g of this Tim as of middle of middle 00 note Medi abisai phalanx of phalanx of might be Branch right right different middle middle from the finger, finger, original. initial initial Added encounter encounter automatic ally from request for surgery [id number] Severe Severe Problem Active [facility] anxiety [...] pain [facility] No known No known Disease Unive rs active active ity of problems problems [facility] Allergies, Adverse Reactions, Alerts Allergy Allergy Status Severity Reaction(s) Onset Inactive Treating Comm ents Source Name Type Date Date Clinician Tramadol Propensi Active Nausea 2017-11 Univer s ty to and/or 1-05 ity of adverse Vomiting 00:00: [place] reaction [address] [place] [address] TRAMADOL DRUG Active ITCHING 2017-11 Univers INGREDI 1-05 ity of 00:00: [address] Social History Social Habit Start Date Stop Date Quantity Comments Source History of tobacco Cigarette Smoker University of use [facility] Exposure to Not sure University of SARS-CoV-2 (event) [facility] Cigarettes smoked 2020-09-29 2020-09-29 Univers ity of current (pack per 00:00:00 00:00:00 [facility] ) - Reported Branch Tobacco use and 2020-09-29 2020-09-29 Never used Universit y of exposure 00:00:00 00:00:00 [facility] Alcohol intake 2020-09-29 2020-09-29 University of 00:00:00 00:00:00 [facility] Tobacco Comment 2020-09-09 2020-09-09 1 pack/3 days Univer sity of 00:00:00 00:00:00 [place] [facility] History SDOH 2020-09-06 2020-09-06 1 University o f Alcohol Frequency 00:00:00 00:00:00 [place] [facility] History SDOH 2020-09-06 2020-09-06 99 University o f Alcohol Std Drinks 00:00:00 00:00:00 [place] [facility] History SDPR 2020-09-06 2020-09-06 1 University o f Alcohol Binge 00:00:00 00:00:00 [place] [facility] Sex [birth year] Univers y of 00:00:00 00:00:00 [facility] Smoking Status Start Date Stop Date Source Current every day smoker 2020-09-29 00:00:00 Uni versity [facility] Unknown if ever smoked [facility] y [facility] Medications Ordered Filled Start Stop Current Ordering Indication Dosage Frequency Signature Comments Components Source Medication Medication Date Date Medication? Clinician (SIG) Name Name acetaminoph 2019-11 Yes 2745 1{tbl} Take 1 Un tin en-codeine 1-19 tablet by ity of (TYLENOL-CO 00:00: mouth [place] DEINE #3) 00 every 4 Medical 300-30 mg (four) Branch tablet hours as needed for Pain (scale 4-6) or Pain (scale 7-10). Indication s: chronic pain acetaminoph 2019- Yes 2745 1{tbl} Take 1 Un tin en-codeine 1-19 tablet by ity of (TYLENOL-CO 00:00: mouth [place] DEINE #3) 00 every 4 Medical 300-30 mg (four) Branch tablet hours as needed for Pain (scale 4-6) or Pain (scale 7-10). Indication s: chronic pain acetaminoph 2020- Yes 2745 1{tbl} Take 1 Un tin en-codeine 1-19 tablet by ity of (TYLENOL-CO 00:00: mouth [place] DEINE #3) 00 every 4 Medical 300-30 mg (four) Branch tablet hours as needed for Pain (scale 4-6) or Pain (scale 7-10). Indication s: chronic pain acetaminoph 2020-1 Yes 2745 1{tbl} Take 1 Un tin en-codeine 1-19 tablet by ity of (TYLENOL-CO 00:00: mouth [place] DEINE #3) 00 every 4 Medical 300-30 mg (four) Branch tablet hours as needed for Pain (scale 4-6) or Pain (scale 7-10). Indication s: chronic pain acetaminoph 2020-1 Yes 2745 1{tbl} Take 1 Un tin en-codeine 1-19 tablet by ity of (TYLENOL-CO 00:00: mouth [place] DEINE #3) 00 every 4 Medical 300-30 mg (four) Branch tablet hours as needed for Pain (scale 4-6) or Pain (scale 7-10). Indication s: chronic pain acetaminoph 2020-1 Yes 2745 1{tbl} Take 1 Un tin en-codeine 1-19 tablet by ity of (TYLENOL-CO 00:00: mouth [place] DEINE #3) 00 every 4 Medical 300-30 mg (four) Branch tablet hours as needed for Pain (scale 4-6) or Pain (scale 7-10). Indication s: chronic pain acetaminoph 2020- Yes 2745 1{tbl} Take 1 Un tin en-codeine 1-19 tablet by ity of (TYLENOL-CO 00:00: mouth [place] DEINE #3) 00 every 4 Medical 300-30 mg (four) Branch tablet hours as needed for Pain (scale 4-6) or Pain (scale 7-10). Indication s: chronic pain acetaminoph 2020-1 Yes 2745 1{tbl} Take 1 Un tin en-codeine 1-19 tablet by ity of (TYLENOL-CO 00:00: mouth [place] DEINE #3) 00 every 4 Medical 300-30 mg (four) Branch tablet hours as needed for Pain (scale 4-6) or Pain (scale 7-10). Indication s: chronic pain acetaminoph 2020-1 Yes 2745 1{tbl} Take 1 Un tin en-codeine 1-19 tablet by ity of (TYLENOL-CO 00:00: mouth [place] DEINE #3) 00 every 4 Medical 300-30 mg (four) Branch tablet hours as needed for Pain (scale 4-6) or Pain (scale 7-10). Indication s: chronic pain acetaminoph 2020- Yes 2745 1{tbl} Take 1 Un tin en-codeine 1-19 tablet by ity of (TYLENOL-CO 00:00: mouth [place] DEINE #3) 00 every 4 Medical 300-30 mg (four) Branch tablet hours as needed for Pain (scale 4-6) or Pain (scale 7-10). Indication s: chronic pain acetaminoph 2020- Yes 2745 1{tbl} Take 1 Un tin en-codeine 1-19 tablet by ity of (TYLENOL-CO 00:00: mouth [place] DEINE #3) 00 every 4 Medical 300-30 mg (four) Branch tablet hours as needed for Pain (scale 4-6) or Pain (scale 7-10). Indication s: chronic pain acetaminoph 2020- Yes 2745 1{tbl} Take 1 Un tin en-codeine 1-19 tablet by ity of (TYLENOL-CO 00:00: mouth [place] DEINE #3) 00 every 4 Medical 300-30 mg (four) Branch tablet hours as needed for Pain (scale 4-6) or Pain (scale 7-10). Indication s: chronic pain acetaminoph 2020- Yes 2745 1{tbl} Take 1 Un tin en-codeine 1-19 tablet by ity of (TYLENOL-CO 00:00: mouth [place] DEINE #3) 00 every 4 Medical 300-30 mg (four) Branch tablet hours as needed for Pain (scale 4-6) or Pain (scale 7-10). Indication s: chronic pain acetaminoph 2020-1 Yes 2745 1{tbl} Take 1 Un tin en-codeine 1-19 tablet by ity of (TYLENOL-CO 00:00: mouth [place] DEINE #3) 00 every 4 Medical 300-30 mg (four) Branch tablet hours as needed for Pain (scale 4-6) or Pain (scale 7-10). Indication s: chronic pain acetaminoph 2020-1 Yes 2745 1{tbl} Take 1 Un tin en-codeine 1-19 tablet by ity of (TYLENOL-CO 00:00: mouth [place] DEINE #3) 00 every 4 Medical 300-30 mg (four) Branch tablet hours as needed for Pain (scale 4-6) or Pain (scale 7-10). Indication s: chronic pain acetaminoph 2019-11 Yes 2745 1{tbl} Take 1 Un tin en-codeine 1-19 tablet by ity of (TYLENOL-CO 00:00: mouth [place] DEINE #3) 00 every 4 Medical 300-30 mg (four) Branch tablet hours as needed for Pain (scale 4-6) or Pain (scale 7-10). Indication s: chronic pain acetaminoph 2019-11 Yes 2745 1{tbl} Take 1 Un tin en-codeine 1-19 tablet by ity of (TYLENOL-CO 00:00: mouth [place] DEINE #3) 00 every 4 Medical 300-30 mg (four) Branch tablet hours as needed for Pain (scale 4-6) or Pain (scale 7-10). Indication s: chronic pain clindamycin 2019-11 Yes TAKE 2 Univ ers 150 mg 1-17 CAPSULES ity of capsule 00:00: [place]TH 4 [place] 00 TIMES Medical DAILY FOR Branch 10 DAYS clindamycin 2019-11 Yes TAKE 2 Univ ers 150 mg 1-17 CAPSULES ity of capsule 00:00: [place]TH 4 [place] 00 TIMES Medical DAILY FOR Branch 10 DAYS clindamycin 2019-11 Yes TAKE 2 Univ ers 150 mg 1-17 CAPSULES ity of capsule 00:00: [place]OUTH 4 [place] 00 TIMES Medical DAILY FOR Branch 10 DAYS clindamycin 2019-11 Yes TAKE 2 Univ ers 150 mg 1-17 CAPSULES ity of capsule 00:00: [place]OUTH 4 [place] 00 TIMES Medical DAILY FOR Branch 10 DAYS clindamycin 2019-11 Yes TAKE 2 Univ ers 150 mg 1-17 CAPSULES ity of capsule 00:00: BY [place]OUTH 4 [place] 00 TIMES Medical DAILY FOR Branch 10 DAYS clindamycin 2019-11 Yes TAKE 2 Univ ers 150 mg 1-17 CAPSULES ity of capsule 00:00: [place]OUTH 4 [place] 00 TIMES Medical DAILY FOR Branch 10 DAYS clindamycin 2019-11 Yes TAKE 2 Univ ers 150 mg 1-17 CAPSULES ity of capsule 00:00: [place]OUTH 4 [place] 00 TIMES Medical DAILY FOR Branch 10 DAYS clindamycin 2019-11 Yes TAKE 2 Univ ers 150 mg 1-17 CAPSULES ity of capsule 00:00: BY [place]OUTH 4 [place] 00 TIMES Medical DAILY FOR Branch 10 DAYS clindamycin 2019-11 Yes TAKE 2 Univ ers 150 mg 1-17 CAPSULES ity of capsule 00:00: BY [place]OUTH 4 [place] 00 TIMES Medical DAILY FOR Branch 10 DAYS clindamycin 2019-11 Yes TAKE 2 Univ ers 150 mg 1-17 CAPSULES ity of capsule 00:00: BY [place]OUTH 4 [place] 00 TIMES Medical DAILY FOR Branch 10 DAYS clindamycin 2019-11 Yes TAKE 2 Univ ers 150 mg 1-17 CAPSULES ity of capsule 00:00: BY [place]OUTH 4 [place] 00 TIMES Medical DAILY FOR Branch 10 DAYS clindamycin 2019-11 Yes TAKE 2 Univ ers 150 mg 1-17 CAPSULES ity of capsule 00:00: BY [place]OUTH 4 [place] 00 TIMES Medical DAILY FOR Branch 10 DAYS clindamycin 2019-11 Yes TAKE 2 Univ ers 150 mg 1-17 CAPSULES ity of capsule 00:00: BY [place]OUTH 4 [place] 00 TIMES Medical DAILY FOR Branch 10 DAYS clindamycin 2019-11 Yes TAKE 2 Univ ers 150 mg 1-17 CAPSULES ity of capsule 00:00: BY [place]OUTH 4 [place] 00 TIMES Medical DAILY FOR Branch 10 DAYS clindamycin 2019-11 Yes TAKE 2 Univ ers 150 mg 1-17 CAPSULES ity of capsule 00:00: BY [place]OUTH 4 [place] 00 TIMES Medical DAILY FOR Branch 10 DAYS clindamycin 2019-11 Yes TAKE 2 Univ ers 150 mg 1-17 CAPSULES ity of capsule 00:00: BY MOUTH 4 [place] 00 TIMES Medical DAILY FOR Branch 10 DAYS clindamycin 2019-11 Yes TAKE 2 Univ ers 150 mg 1-17 CAPSULES ity of capsule 00:00: BY [place]OUTH 4 [place] 00 TIMES Medical DAILY FOR Branch 10 DAYS lactated 2019-11 Yes 1000mL at 75 Univer s ringers IV 1-02 mL/hr, ity of infusion 19:45: 1,000 mL, [place] 1,000 mL 00 IV Medical Infusion, Branch CONTINUOUS , Starting 09/12/20 at 1345, Until Discontinu ed, Routine, PACU HYDROmorpho 2019-11 Yes .2mg 0.2 mg, Uni vers ne 1-02 Slow IV ity of (DILAUDID) 19:35: Push, [place] injection 58 Q5MIN PRN, Medi abisai 0.2 mg 10 doses, Branch Starting 09/12/20 at 1335, Until Discontinu ed, Routine, Pain (scale 7-10), PACU
Us e approved by (Faculty): PACU USE -ANESTHESI A SERVICE-HY DROMORPHON E INJECTIONS FENTanyl PF 2019-11 Yes 25ug 25 mcg, Uni vers (SUBLIMAZE 11-12 Slow IV ity of (PF)) 19:35: Push, [place] injection 58 Q5MIN PRN, Medi abisai 25 mcg 4 doses, Branch Starting 09/12/20 at 1335, Until Discontinu ed, Routine, Pain (scale 4-6), PACU ondansetron 2019-11 Yes 4mg 4 mg, Slow Univers (ZOFRAN 11-12 IV Push, ity of (PF)) 19:35: PRN, 1 [place] injection 4 58 dose, Medical mg Starting Branch 09/12/20 at 1335, Until Discontinu ed, Routine, Nausea and Vomiting (N/V), PACU lactated 2019-11- No 1000mL at 42 Unive rs ringers IV 11-12 1102 mL/hr, ity of infusion 14:30: 14:30 1,000 mL, Tim as 1,000 mL 00 :00 IV Medical Infusion, Branch ONCE, 1 dose, Sat09/12/20 at 0830, Routine, DSU Pre-op acetaminoph 2019-11- No 4647 1{tbl} Take 1 U nivers en-codeine - 11-10 tablet by ity of 300-60 mg 00:00: 05:59 mouth [place] tablet 00 :00 every 6 Medical (six) Branch hours as needed for Pain (pain score 4-10) for up to 7 days. Indication s: acute pain acetaminoph 2019-11- No 4647 1{tbl} Take 1 U nivers en-codeine - 11-10 tablet by ity of 300-60 mg 00:00: 05:59 mouth [place] tablet 00 :00 every 6 Medical (six) Branch hours as needed for Pain (pain score 4-10) for up to 7 days. Indication s: acute pain clindamycin 2019-11- No [id number] 300mg Take 2 Univers 150 mg 0-27 11-07 capsules ity of capsule 00:00: 05:59 by mouth 4 Tim as 00 :00 (four) Medical times Branch daily for 10 days. clindamycin 2019-11- No [id number] 300mg Take 2 Univers 150 mg 0-27 11-07 capsules ity of capsule 00:00: 05:59 by mouth 4 [place] as 00 :00 (four) Medical times Branch daily for 10 days. clindamycin 2019- 2020- No [id number] 300mg Take 2 Univers 150 mg 0-27 11-07 capsules ity of capsule 00:00: 05:59 by mouth 4 Tim as 00 :00 (four) Medical times Branch daily for 10 days. clindamycin 2019- 2020- No [id number] 300mg Take 2 Univers 150 mg 0-27 11-07 capsules ity of capsule 00:00: 05:59 by mouth 4 Tim as 00 :00 (four) Medical times Branch daily for 10 days. clindamycin 2019-11- No [id number] 300mg Take 2 Univers 150 mg 0-27 11-07 capsules ity of capsule 00:00: 05:59 by mouth 4 Tim as 00 :00 (four) Medical times Branch daily for 10 days. clindamycin 2019- 2020- No [id number] 300mg Take 2 Univers 150 mg 0-27 11-07 capsules ity of capsule 00:00: 05:59 by mouth 4 Tim as 00 :00 (four) Medical times Branch daily for 10 days. clindamycin 2019- 2020- No [id number] 300mg Take 2 Univers 150 mg 0-27 11-07 capsules ity of capsule 00:00: 05:59 by mouth 4 Tim as 00 :00 (four) Medical times Branch daily for 10 days. clindamycin 2019- 2020- No [id number] 300mg Take 2 Univers 150 mg 0-27 11-07 capsules ity of capsule 00:00: 05:59 by mouth 4 Tim as 00 :00 (four) Medical times Branch daily for 10 days. clindamycin 2019- 2020- No [id number] 300mg Take 2 Univers 150 mg 0-27 11-07 capsules ity of capsule 00:00: 05:59 by mouth 4 Tim as 00 :00 (four) Medical times Branch daily for 10 days. divalproex 2019- Yes 500mg Take 500 Un tin 500 mg EC 0-22 mg by ity of tablet 00:00: mouth 2 [place] 00 (two) Medical times Branch daily. hydrOXYzine 2019- Yes TAKE 1 Univ ers 50 mg 0-22 CAPSULE BY ity of capsule 00:00: MOUTH [place] THREE Medical TIMES Branch DAILY NEEDED FOR ACUTE ANXIETY traZODone 2020- Yes TAKE 1 TO Uni vers 100 mg 0-22 2 TABLETS ity of tablet 00:00: BY MOUTH [place] EVERY DAY Medical AT BEDTIME Branch DIRECTED NEEDED FOR INSOMNIA divalproex 2020- Yes 500mg Take 500 Un tin 500 mg EC 0-22 mg by ity of tablet 00:00: [facility] [place] (two) Medical times Branch daily. hydrOXYzine 2019- Yes TAKE 1 Univ ers 50 mg 0-22 CAPSULE BY ity of capsule 00:00: [facility] THREE Medical TIMES Branch DAILY NEEDED FOR ACUTE ANXIETY traZODone 2019- Yes TAKE 1 TO Uni vers 100 mg 0-22 2 TABLETS ity of tablet 00:00: BY MOUTH [place] EVERY DAY Medical AT BEDTIME Branch DIRECTED NEEDED FOR INSOMNIA divalproex 2020- Yes 500mg Take 500 Un tin 500 mg EC 0-22 mg by ity of tablet 00:00: [facility] [place] ([facility]) Medical times Branch daily. hydrOXYzine 2019- Yes TAKE 1 Univ ers 50 mg 0-22 CAPSULE BY ity of capsule 00:00: [facility] THREE Medical TIMES Branch DAILY NEEDED FOR ACUTE ANXIETY traZODone 2019- Yes TAKE 1 TO Uni vers 100 mg 0-22 2 TABLETS ity of tablet 00:00: BY [facility] EVERY DAY Medical AT BEDTIME Branch DIRECTED NEEDED FOR INSOMNIA divalproex 2020- Yes 500mg Take 500 Un tin 500 mg EC 0-22 mg by ity of tablet 00:00: [facility] [place] ([facility]) Medical times Branch daily. hydrOXYzine 2019- Yes TAKE 1 Univ ers 50 mg 0-22 CAPSULE BY ity of capsule 00:00: [facility] THREE Medical TIMES Branch DAILY NEEDED FOR ACUTE ANXIETY traZODone 2020- Yes TAKE 1 TO Uni vers 100 mg 0-22 2 TABLETS ity of tablet 00:00: BY MOUTH [place] EVERY DAY Medical AT BEDTIME Branch DIRECTED NEEDED FOR INSOMNIA divalproex 2020-1 Yes 500mg Take 500 Un tin 500 mg EC 0-22 mg by ity of tablet 00:00: mouth [place] (two) Medical times Branch daily. hydrOXYzine 2020-1 Yes TAKE 1 Univ ers 50 mg 0-22 CAPSULE BY ity of capsule 00:00: MOUTH [place] [facility] Medical TIMES Branch DAILY NEEDED FOR ACUTE ANXIETY traZODone 2020-1 Yes TAKE 1 TO Uni vers 100 mg 0-22 2 TABLETS ity of tablet 00:00: BY MOUTH [place] EVERY DAY Medical AT BEDTIME Branch DIRECTED NEEDED FOR INSOMNIA divalproex 2020-1 Yes 500mg Take 500 Un tin 500 mg EC 0-22 mg by ity of tablet 00:00: mouth [place] (two) Medical times Branch daily. hydrOXYzine 2020- Yes TAKE 1 Univ ers 50 mg 0-22 CAPSULE BY ity of capsule 00:00: [facility] Medical TIMES Branch DAILY NEEDED FOR ACUTE ANXIETY traZODone 2020-1 Yes TAKE 1 TO Uni vers 100 mg 0-22 2 TABLETS ity of tablet 00:00: BY MOUTH [place] EVERY DAY Medical AT BEDTIME Branch DIRECTED NEEDED FOR INSOMNIA divalproex 2020-1 Yes 500mg Take 500 Un tin 500 mg EC 0-22 mg by ity of tablet 00:00: mouth [place] (two) Medical times Branch daily. hydrOXYzine 2020-1 Yes TAKE 1 Univ ers 50 mg 0-22 CAPSULE BY ity of capsule 00:00: [facility] Medical TIMES Branch DAILY NEEDED FOR ACUTE ANXIETY traZODone 2020-1 Yes TAKE 1 TO Uni vers 100 mg 0-22 2 TABLETS ity of tablet 00:00: BY MOUTH [place] EVERY DAY Medical AT BEDTIME Branch DIRECTED NEEDED FOR INSOMNIA divalproex 2020-1 Yes 500mg Take 500 Un tin 500 mg EC 0-22 mg by ity of tablet 00:00: mouth [place] (two) Medical times Branch daily. hydrOXYzine 2020-1 Yes TAKE 1 Univ ers 50 mg 0-22 CAPSULE BY ity of capsule 00:00: [facility] THREE Medical TIMES Branch DAILY NEEDED FOR ACUTE ANXIETY traZODone 2020-1 Yes TAKE 1 TO Uni vers 100 mg 0-22 2 TABLETS ity of tablet 00:00: BY MOUTH [place] EVERY DAY Medical AT BEDTIME Branch DIRECTED NEEDED FOR INSOMNIA divalproex 2020-1 Yes 500mg Take 500 Un tin 500 mg EC 0-22 mg by ity of tablet 00:00: mouth [place] (two) Medical times Branch daily. hydrOXYzine 2020-1 Yes TAKE 1 Univ ers 50 mg 0-22 CAPSULE BY ity of capsule 00:00: [facility] Medical TIMES [place] DAILY NEEDED FOR ACUTE ANXIETY traZODone 2020-1 Yes TAKE 1 TO Uni vers 100 mg 0-22 2 TABLETS ity of tablet 00:00: BY [facility] EVERY DAY Medical AT BEDTIME Branch DIRECTED NEEDED FOR INSOMNIA divalproex 2020-1 Yes 500mg Take 500 Un tin 500 mg EC 0-22 mg by ity of tablet 00:00: [facility] [place] (two) Medical times Branch daily. hydrOXYzine 2020-1 Yes TAKE 1 Univ ers 50 mg 0-22 CAPSULE BY ity of capsule 00:00: [facility] Medical TIMES [place] DAILY NEEDED FOR ACUTE ANXIETY traZODone 2020-1 Yes TAKE 1 TO Uni vers 100 mg 0-22 2 TABLETS ity of tablet 00:00: BY [facility] EVERY DAY Medical AT BEDTIME Branch DIRECTED NEEDED FOR INSOMNIA divalproex 2020-1 Yes 500mg Take 500 Un tin 500 mg EC 0-22 mg by ity of tablet 00:00: [facility] [place] (two) Medical times Branch daily. hydrOXYzine 2020-1 Yes TAKE 1 Univ ers 50 mg 0-22 CAPSULE BY ity of capsule 00:00: [facility] Medical TIMES [place] DAILY NEEDED FOR ACUTE ANXIETY traZODone 2020-1 Yes TAKE 1 TO Uni vers 100 mg 0-22 2 TABLETS ity of tablet 00:00: BY [facility] EVERY DAY Medical AT BEDTIME Branch DIRECTED NEEDED FOR INSOMNIA divalproex 2020-1 Yes 500mg Take 500 Un tin 500 mg EC 0-22 mg by ity of tablet 00:00: [facility] [place] (two) Medical times Branch daily. hydrOXYzine 2020-1 Yes TAKE 1 Univ ers 50 mg 0-22 CAPSULE BY ity of capsule 00:00: [facility] THREE Medical TIMES Branch DAILY NEEDED FOR ACUTE ANXIETY traZODone 2020-1 Yes TAKE 1 TO Uni vers 100 mg 0-22 2 TABLETS ity of tablet 00:00: BY [facility] EVERY DAY Medical AT BEDTIME Branch DIRECTED NEEDED FOR INSOMNIA divalproex 2020-1 Yes 500mg Take 500 Un tin 500 mg EC 0-22 mg by ity of tablet 00:00: mouth [place] (two) Medical times Branch daily. hydrOXYzine 2020-1 Yes TAKE 1 Univ ers 50 mg 0-22 CAPSULE BY ity of capsule 00:00: MOUTH [place] THREE Medical TIMES Branch DAILY NEEDED FOR ACUTE ANXIETY traZODone 2020-1 Yes TAKE 1 TO Uni vers 100 mg 0-22 2 TABLETS ity of tablet 00:00: BY MOUTH [place] EVERY DAY Medical AT BEDTIME Branch DIRECTED NEEDED FOR INSOMNIA divalproex 2020-1 Yes 500mg Take 500 Un tin 500 mg EC 0-22 mg by ity of tablet 00:00: mouth [address] [place] [address] (two) Medical times Branch daily. hydrOXYzine 2020-1 Yes TAKE 1 Univ ers 50 mg 0-22 CAPSULE BY ity of capsule 00:00: MOUTH [place] THREE Medical TIMES [place] DAILY NEEDED FOR ACUTE ANXIETY traZODone 2020-1 Yes TAKE 1 TO Uni vers 100 mg 0-22 2 TABLETS ity of tablet 00:00: BY MOUTH [place] EVERY DAY Medical AT BEDTIME Branch DIRECTED NEEDED FOR INSOMNIA divalproex 2020-1 Yes 500mg Take 500 Un tin 500 mg EC 0-22 mg by ity of tablet 00:00: mouth [address] [place] [address] (two) Medical times Branch daily. hydrOXYzine 2020-1 Yes TAKE 1 Univ ers 50 mg 0-22 CAPSULE BY ity of capsule 00:00: MOUTH [place] THREE Medical TIMES [place] DAILY NEEDED FOR ACUTE ANXIETY traZODone 2020-1 Yes TAKE 1 TO Uni vers 100 mg 0-22 2 TABLETS ity of tablet 00:00: BY [place] [address] EVERY DAY Medical AT BEDTIME Branch DIRECTED NEEDED FOR INSOMNIA divalproex 2020-1 Yes 500mg Take 500 Un tin 500 mg EC 0-22 mg by ity of tablet 00:00: mouth [address] [place] [address] (two) Medical times Branch daily. hydrOXYzine 2020-1 Yes TAKE 1 Univ ers 50 mg 0-22 CAPSULE BY ity of capsule 00:00: MOUTH [place] THREE Medical TIMES Branch DAILY NEEDED FOR ACUTE ANXIETY traZODone 2020-1 Yes TAKE 1 TO Uni vers 100 mg 0-22 2 TABLETS ity of tablet 00:00: BY MOUTH [place] EVERY DAY Medical AT BEDTIME Branch DIRECTED NEEDED FOR INSOMNIA divalproex 2020-1 Yes 500mg Take 500 Un tin 500 mg EC 0-22 mg by ity of tablet 00:00: mouth [place] (two) Medical times Branch daily. hydrOXYzine 2020-1 Yes TAKE 1 Univ ers 50 mg 0-22 CAPSULE BY ity of capsule 00:00: MOUTH [place] THREE Medical TIMES Branch DAILY NEEDED FOR ACUTE ANXIETY traZODone 2020-1 Yes TAKE 1 TO Uni vers 100 mg 0-22 2 TABLETS ity of tablet 00:00: BY [facility] EVERY DAY Medical AT BEDTIME Branch DIRECTED NEEDED FOR INSOMNIA divalproex 2020-1 Yes 500mg Take 500 Un tin 500 mg EC 0-22 mg by ity of tablet 00:00: mouth [place] (two) Medical times Branch daily. hydrOXYzine 2020-1 Yes TAKE 1 Univ ers 50 mg 0-22 CAPSULE BY ity of capsule 00:00: MOUTH [place] THREE Medical TIMES Branch DAILY NEEDED FOR ACUTE ANXIETY traZODone 2020-1 Yes TAKE 1 TO Uni vers 100 mg 0-22 2 TABLETS ity of tablet 00:00: BY [facility] EVERY DAY Medical AT BEDTIME Branch DIRECTED NEEDED FOR INSOMNIA divalproex 2020-1 Yes 500mg Take 500 Un tin 500 mg EC 0-22 mg by ity of tablet 00:00: mouth [place] (two) Medical times Branch daily. hydrOXYzine 2020-1 Yes TAKE 1 Univ ers 50 mg 0-22 CAPSULE BY ity of capsule 00:00: [facility] THREE Medical TIMES Branch DAILY NEEDED FOR ACUTE ANXIETY traZODone 2020-1 Yes TAKE 1 TO Uni vers 100 mg 0-22 2 TABLETS ity of tablet 00:00: BY [place] [address] EVERY DAY Medical AT BEDTIME Branch DIRECTED NEEDED FOR INSOMNIA divalproex 2020-1 Yes 500mg Take 500 Un tin 500 mg EC 0-22 mg by ity of tablet 00:00: mouth [address] [place] [address] (two) Medical times Branch daily. hydrOXYzine 2020-1 Yes TAKE 1 Univ ers 50 mg 0-22 CAPSULE BY ity of capsule 00:00: MOUTH [place] THREE Medical TIMES Branch DAILY NEEDED FOR ACUTE ANXIETY traZODone 2020-1 Yes TAKE 1 TO Uni vers 100 mg 0-22 2 TABLETS ity of tablet 00:00: BY MOUTH [place] EVERY DAY Medical AT BEDTIME Branch DIRECTED NEEDED FOR INSOMNIA divalproex 2020-1 Yes 500mg Take 500 Un tin 500 mg EC 0-22 mg by ity of tablet 00:00: mouth [place] (two) Medical times Branch daily. hydrOXYzine 2020- Yes TAKE 1 Univ ers 50 mg 0-22 CAPSULE BY ity of capsule 00:00: MOUTH [place] THREE Medical TIMES Branch DAILY NEEDED FOR ACUTE ANXIETY traZODone 2020- Yes TAKE 1 TO Uni vers 100 mg 0-22 2 TABLETS ity of tablet 00:00: BY MOUTH [place] EVERY DAY Medical AT BEDTIME Branch DIRECTED NEEDED FOR INSOMNIA divalproex 2020- Yes 500mg Take 500 Un tin 500 mg EC 0-22 mg by ity of tablet 00:00: mouth [place] (two) Medical times Branch daily. hydrOXYzine 2019- Yes TAKE 1 Univ ers 50 mg 0-22 CAPSULE BY ity of capsule 00:00: MOUTH [place] THREE Medical TIMES Branch DAILY NEEDED FOR ACUTE ANXIETY traZODone 2019- Yes TAKE 1 TO Uni vers 100 mg 0-22 2 TABLETS ity of tablet 00:00: BY [facility] EVERY DAY Medical AT BEDTIME Branch DIRECTED NEEDED FOR INSOMNIA divalproex 2020- Yes 500mg Take 500 Un tin 500 mg EC 0-22 mg by ity of tablet 00:00: mouth [place] (two) Medical times Branch daily. hydrOXYzine 2019- Yes TAKE 1 Univ ers 50 mg 0-22 CAPSULE BY ity of capsule 00:00: [facility] THREE Medical TIMES Branch DAILY NEEDED FOR ACUTE ANXIETY traZODone 2019- Yes TAKE 1 TO Uni vers 100 mg 0-22 2 TABLETS ity of tablet 00:00: BY [facility] EVERY DAY Medical AT BEDTIME Branch DIRECTED NEEDED FOR INSOMNIA divalproex 2020-1 Yes 500mg Take 500 Un tin 500 mg EC 0-22 mg by ity of tablet 00:00: mouth [address] [place] [address] (two) Medical times Branch daily. hydrOXYzine 2020- Yes TAKE 1 Univ ers 50 mg 0-22 CAPSULE BY ity of capsule 00:00: MOUTH [place] THREE Medical TIMES Branch DAILY NEEDED FOR ACUTE ANXIETY traZODone 2020-1 Yes TAKE 1 TO Uni vers 100 mg 0-22 2 TABLETS ity of tablet 00:00: BY MOUTH [place] EVERY DAY Medical AT BEDTIME Branch DIRECTED NEEDED FOR INSOMNIA divalproex 2020-1 Yes 500mg Take 500 Un tin 500 mg EC 0-22 mg by ity of tablet 00:00: mouth [place] (two) Medical times Branch daily. hydrOXYzine 2020-1 Yes TAKE 1 Univ ers 50 mg 0-22 CAPSULE BY ity of capsule 00:00: MOUTH [place] THREE Medical TIMES Branch DAILY NEEDED FOR ACUTE ANXIETY traZODone 2020-1 Yes TAKE 1 TO Uni vers 100 mg 0-22 2 TABLETS ity of tablet 00:00: BY MOUTH [place] EVERY DAY Medical AT BEDTIME Branch DIRECTED NEEDED FOR INSOMNIA divalproex 2020-1 Yes 500mg Take 500 Un tin 500 mg EC 0-22 mg by ity of tablet 00:00: mouth [place] (two) Medical times Branch daily. hydrOXYzine 2020-1 Yes TAKE 1 Univ ers 50 mg 0-22 CAPSULE BY ity of capsule 00:00: MOUTH [place] THREE Medical TIMES [place] DAILY NEEDED FOR ACUTE ANXIETY traZODone 2020-1 Yes TAKE 1 TO Uni vers 100 mg 0-22 2 TABLETS ity of tablet 00:00: BY MOUTH [place] EVERY DAY Medical AT BEDTIME Branch DIRECTED NEEDED FOR INSOMNIA divalproex 2020-1 Yes 500mg Take 500 Un tin 500 mg EC 0-22 mg by ity of tablet 00:00: mouth [place] (two) Medical times Branch daily. hydrOXYzine 2020-1 Yes TAKE 1 Univ ers 50 mg 0-22 CAPSULE BY ity of capsule 00:00: [facility] THREE Medical TIMES [place] DAILY NEEDED FOR ACUTE ANXIETY traZODone 2020-1 Yes TAKE 1 TO Uni vers 100 mg 0-22 2 TABLETS ity of tablet 00:00: BY [facility] EVERY DAY Medical AT BEDTIME Branch DIRECTED NEEDED FOR INSOMNIA divalproex 2020-1 Yes 500mg Take 500 Un itn 500 mg EC 0-22 mg by ity of tablet 00:00: mouth [address] [place] [address] (two) Medical times Branch daily. hydrOXYzine 2020-1 Yes TAKE 1 Univ ers 50 mg 0-22 CAPSULE BY ity of capsule 00:00: MOUTH [place] THREE Medical TIMES Branch DAILY NEEDED FOR ACUTE ANXIETY traZODone 2020-1 Yes TAKE 1 TO Uni vers 100 mg 0-22 2 TABLETS ity of tablet 00:00: BY MOUTH [place] EVERY DAY Medical AT BEDTIME Branch DIRECTED NEEDED FOR INSOMNIA divalproex 2020- Yes 500mg Take 500 Un tin 500 mg EC 0-22 mg by ity of tablet 00:00: mouth [place] (two) Medical times Branch daily. hydrOXYzine 2020- Yes TAKE 1 Univ ers 50 mg 0-22 CAPSULE BY ity of capsule 00:00: MOUTH [place] THREE Medical TIMES [place] DAILY NEEDED FOR ACUTE ANXIETY traZODone 2020- Yes TAKE 1 TO Uni vers 100 mg 0-22 2 TABLETS ity of tablet 00:00: BY MOUTH [place] EVERY DAY Medical AT BEDTIME Branch DIRECTED NEEDED FOR INSOMNIA divalproex 2020- Yes 500mg Take 500 Un tin 500 mg EC 0-22 mg by ity of tablet 00:00: mouth [place] (two) Medical times [place] daily. hydrOXYzine 2019- Yes TAKE 1 Univ ers 50 mg 0-22 CAPSULE BY ity of capsule 00:00: MOUTH [place] THREE Medical TIMES [place] DAILY NEEDED FOR ACUTE ANXIETY traZODone 2019- Yes TAKE 1 TO Uni vers 100 mg 0-22 2 TABLETS ity of tablet 00:00: BY MOUTH [place] EVERY DAY Medical AT BEDTIME Branch DIRECTED NEEDED FOR INSOMNIA divalproex 2020- Yes 500mg Take 500 Un tin 500 mg EC 0-22 mg by ity of tablet 00:00: mouth [place] (two) Medical times [place] daily. hydrOXYzine 2019- Yes TAKE 1 Univ ers 50 mg 0-22 CAPSULE BY ity of capsule 00:00: MOUTH [place] THREE Medical TIMES [place] DAILY NEEDED FOR ACUTE ANXIETY traZODone 2019- Yes TAKE 1 TO Uni vers 100 mg 0-22 2 TABLETS ity of tablet 00:00: BY MOUTH [place] [address] EVERY DAY Medical AT BEDTIME Branch DIRECTED NEEDED FOR INSOMNIA ondansetron 2020-0 2020- No 4mg 4 mg, Slow Univers (ZOFRAN 06-08 IV Push, ity of (PF)) 14:15: 13:25 ONCE, 1 [place] injection 4 00 :00 dose, Wed Med ical mg 06/08/20 at Branch 0915, BOBBI morpHINE 2020-0 2020- No 4mg 4 mg, Slow Un tin injection 4 06-08 IV Push, ity of mg 14:15: 13:25 ONCE, 1 [place] 00 :00 dose, [facility] 06/08/20 at Branch 0915, STAT LORazepam 2018- No 2mg 2 mg, Univer s (ATIVAN) 07-17 Oral, ity of tablet 2 mg 00:34: 00:37 [place] dose, [facility] 07/16/19 at Branch 1945, BOBBI LORazepam 2018- No 2mg 2 mg, Univer s (ATIVAN) 07-16 Oral, ity of tablet 2 mg 20:56: 21:02 [place]CE[place] dose, [facility] 07/16/19 at Branch 1600, BOBBI Tylenol # 3 Tylenol # 3 2018- No Mac one tab [facility] 5- 07-27 [facility] No known No Univers medications [facility] No known No Univers medications [facility] No known No Univers medications [facility] Vital Signs Vital Name Observation Time Observation Value Comments Source Systolic blood 2020-09-29 19:53:00 118 mm[Hg] Univer sity [facility] Diastolic blood 2020-09-29 19:53:00 77 mm[Hg] [facility] Heart rate 2020-09-29 19:53:00 79 /min Universi ty [facility] Body height 2020-09-29 19:53:00 166.4 cm Universi ty of [place] [facility] [place] Systolic blood 2020-09-12 20:05:00 136 mm[Hg] Univer sity of pressure [place] [facility] Diastolic blood 2020-09-12 20:05:00 85 mm[Hg] Unive rsity of pressure [facility] Heart rate 2020-09-12 20:05:00 51 /min Universi ty of [facility] Body temperature 2020-09-12 20:05:00 36.67 Sharona Univ ersity of [facility] Respiratory rate 2020-09-12 20:05:00 19 /min Univ ersity of [facility] Oxygen saturation in 2020-09-12 20:05:00 100 /min University of Arterial blood by [facility] Pulse oximetry Branch Body height 2020-09-08 15:11:00 165.1 cm Universi ty of [facility] Body weight 2020-09-08 15:11:00 61.2 kg Universi ty of [facility] BMI 2020-09-08 15:11:00 22.45 kg/m2 Universi ty of [facility] Systolic blood 2020-09-06 16:15:00 115 mm[Hg] Univer sity of pressure [facility] Diastolic blood 2020-09-06 16:15:00 80 mm[Hg] Unive rsity of pressure [facility] Heart rate 2020-09-06 16:15:00 69 /min Universi ty of [facility] Body height 2020-09-06 16:15:00 165.1 cm Universi ty of [facility] Body weight 2020-09-06 16:15:00 61.236 kg Universi ty of [place] [facility] [place] BMI 2020-09-06 16:15:00 22.47 kg/m2 Universi ty of [facility] Systolic blood 2020-06-08 12:56:00 120 mm[Hg] Univer sity of pressure [facility] Diastolic blood 2020-06-08 12:56:00 79 mm[Hg] Unive rsity of pressure [facility] Heart rate 2020-06-08 12:56:00 76 /min Universi ty of [facility] Body temperature 2020-06-08 12:56:00 36.67 Sharona Univ ersity of [facility] Respiratory rate 2020-06-08 12:56:00 16 /min Univ ersity of [facility] Body weight 2020-06-08 12:56:00 68.04 kg Universi ty of [place] [facility] BMI 2020-06-08 12:56:00 24.96 kg/m2 Universi ty of [place] [facility] Oxygen saturation in 2020-06-08 12:56:00 98 /min University of Arterial blood by [facility] Pulse oximetry Branch Systolic blood 2020-04-06 16:00:00 126 mm[Hg] Univer sity of pressure [facility] Branch Diastolic blood 2020-04-06 16:00:00 71 mm[Hg] Unive rsity of pressure [place] [facility] Heart rate 2020-04-06 16:00:00 74 /min Universi ty of [place] [facility] Body temperature 2020-04-06 16:00:00 37.22 Sharona Univ ersity of [facility] Branch Respiratory rate 2020-04-06 16:00:00 20 /min Univ ersity of [facility] Body height 2020-04-06 16:00:00 165.1 cm Universi ty of [place] [facility] Body weight 2020-04-06 16:00:00 68.04 kg Universi ty of [place] [facility] BMI 2020-04-06 16:00:00 24.96 kg/m2 Universi ty of [place] [facility] Oxygen saturation in 2020-04-06 16:00:00 100 /min University of Arterial blood by [facility] Pulse oximetry Branch Systolic blood 2019-07-17 00:00:00 132 mm[Hg] Univer sity of pressure [facility] Branch Diastolic blood 2019-07-17 00:00:00 76 mm[Hg] Unive rsity of pressure [facility] Branch Heart rate 2019-07-17 00:00:00 66 /min Universi ty of [place] [facility] Respiratory rate 2019-07-17 00:00:00 18 /min Univ ersity of [facility] Branch Oxygen saturation in 2019-07-17 00:00:00 98 /min University of Arterial blood by [facility] Pulse oximetry Branch Body temperature 2019-07-16 20:03:00 36.78 Sharona Univ ersity of [facility] Body weight 2019-07-16 20:02:00 79.379 kg Universi ty of [place] [facility] Procedures Procedure Date / Time Performing Clinician Source Performed NOTICE OF PRIVACY 2021-07-02 19:00:14 Doctor Unassigned, No Univ [facility] PRACTICES Name Medical Branch CONSENT/REFUSAL FOR 2021-07-02 18:59:56 [facility] Un[facility]igned, No [facility] Name Medical Branch XR FINGERS 2 VW RIGHT 2020-09-29 18:46:22 Seth Roca [facility] [place] TIME OR 2020-09-12 19:39:39 Seth Roca [facility] (NON-REPORTABLE) Medical [place] TIME OR 2020-09-12 19:20:07 Seth Roca [facility] (NON-REPORTABLE) Medical [place] DAY SURGERY - ADC 2020-09-12 06:01:00 Doctor Unassigned, No [facility] XR CHEST 2 VW 2020-09-09 19:40:29 Seth Roca [facility] CONSENT/REFUSAL FOR 2020-09-09 19:21:16 Doctor Unassigned, No [facility] DIAGNOSIS AND TREATMENT [facility] ASSIGNMENT OF BENEFITS 2020-09-09 19:18:53 Doctor Unassigned, No [facility] DSU PRE-OP 2020-09-08 05:01:00 Doctor Unassigned, No [facility] ASSIGNMENT OF BENEFITS 2020-09-06 16:09:16 Doctor Unassigned, No [facility] POCT TEST 2020-06-08 13:22:00 Jaret Webb [facility] LIPASE 2020-06-08 13:22:00 [facility] HEPATIC FUNCTION PANEL 2020-06-08 13:22:00 Jaret Webb [facility] ([id number]) (ALB,T.PRO,BILI [facility] Branch T,BU/BC,ALT,AST,ALK PHOS) BASIC METABOLIC PANEL 2020-06-08 13:22:00 Uli Webb[facility] (NA, K, CL, CO2, Medical Branch GLUCOSE, BUN, CREATININE, CA) CBC WITH DIFF 2020-06-08 13:22:00 [facility] URINALYSIS 2020-06-08 13:22:00 [facility] RAPID STREP SCREEN FOR 2020-04-06 16:23:00 Sun Castro [facility] GROUP A [facility] NOTICE OF PRIVACY 2020-04-06 15:48:09 Doctor Unassigned, No [facility] PRACTICES Name Medical Branch CONSENT/REFUSAL FOR 2020-04-06 15:47:58 Doctor Unassigned, No [facility]REAT[facility] Name Medical Branch FREE T4 2019-07-16 20:51:00 Matthieu Jimbo [facility] THYROID STIMULATING 2019-07-16 20:51:00 [facility] Branch HEPATIC FUNCTION PANEL 2019-07-16 20:51:00 Jimbo Sommers [facility] ([id number]) (ALB,T.PRO,BILI [facility] Branch T,BU/BC,ALT,AST,ALK PHOS) BASIC METABOLIC PANEL 2019-07-16 20:51:00 [facility] (NA, K, CL, CO2, Medical Branch GLUCOSE, BUN, CREATININE, CA) SALICYLATE 2019-07-16 20:51:00 Matthieu [facility] ETHANOL 2019-07-16 20:51:00 Matthieu [facility] CBC WITH DIFFERENTIAL 2019-07-16 20:51:00 Matthieu Jimbo [facility] URINALYSIS 2019-07-16 20:51:00 [facility] ADC / LCC - DRUG SCREEN 2019-07-16 20:51:00 Jimbo Sommers [facility] TRIAGE [facility] POCT TEST 2019-07-16 20:37:00 Jimbo Sommers [facility] EKG-12 LEAD 2019-07-16 20:28:43 Matthieu Jimbo [facility] NOTICE OF PRIVACY 2019-07-16 19:39:12 Doctor Unassigned, No [facility] PRACTICES Name Medical Branch CONSENT/REFUSAL FOR 2019-07-16 19:38:59 Doctor Unassigned, No [facility]NOS[facility] AND TREATMENT Name Medical Branch Encounters Start End Encounter Admission Attending Care Care Encounter Source Date/Time Date/Time Type Type Clinicians Facility Department ID 2021-09-11 Emergency [facility] [id number] Univers 17:13:34 [facility] 2021-09-09 Outpatient Anuj ROCA [facility] PADMINI [id number] Univers 01:42:20 SETH ity of [facility] 2021-07-02 2021-07-02 Emergency [facility] [id number] Univers 14:21:00 15:17:00 Terrell [id number] i ty of [place] 4.2.7.2.686 [facility] [id number] [facility] 084 [place] 2021-07-02 2021-07-02 Orders Doctor LUCÍA [id number] Univers 00:00:00 00:00:00 Only Unassigned, CATIE [id number] ity of [place] [facility] 4.2.7.2.686 Tim as [id number] [facility] 009 [place] 2021-07-02 2021-07-02 Orders Doctor LUCÍA 1.2.840.114 [id number] 00:00:00 00:00:00 Only Unassigned, CATIE [id number] [place] [facility] 4.2.7.2.686 [id number] 2020-10-25 2020-10-25 Telephone [facility] [id number] Univers 00:00:00 00:00:00 [facility] [id number] it y of Surgical 4.2.7.2.686 Tim as Specialti [id number] Nh dical [address] 2020-10-25 2020-10-25 [place] [facility] [id number] 00:00:00 00:00:00 [facility] [id number] Surgical 4.2.7.2.686 Specialti [id number] es [address] [place] [address] 2020-10-17 2020-10-17 [facility]patient [facility] [id number] Univers 14:00:00 14:00:00 [facility] 2020-10-17 2020-10-17 [facility]patient [facility] [id number] Univers 14:00:00 14:00:00 ANALI [facility] 2020-10-14 2020-10-14 Telephone [facility] [id number] Univers 00:00:00 00:00:00 Anali S PRIMARY [id number] it y of [place]2.[place] [facility] [id number] Nh dical 198 [place] 2020-10-14 2020-10-14 Nurse LUCÍA Saleem [id number] Univers 00:00:00 00:00:00 Triage Monie CATIE [id number] it y of HOSPITAL 4.2.7.2.686 Tim as [phone] [address] 2020-10-14 2020-10-14 [facility] [id number] 00:00:00 00:00:00 Anali S PRIMARY [id number] CARE 4.2.7.2.686 PAVILLION [id number] [facility] 2020-10-14 2020-10-14 Nurse LUCÍA Saleem 1.2.840.114 [id number] 00:00:00 00:00:00 Triage Monie CATIE [id number] HOSPITAL 4.2.7.2.686 [id number] 2020-10-13 2020-10-13 Outpatient [facility] [id number] Univers 10:30:00 10:30:00 ANALI [facility] 2020-10-13 2020-10-13 Outpatient [facility] [id number] Univers 10:30:00 10:30:00 [facility] 2020-10-04 2020-10-04 [facility] [id number] Univers 00:00:00 00:00:00 Assessment Anali S Health [id number] ity of Surgical 4.2.7.2.686 Tim as Specialti [phone] Nh dical es 198 [facility]3] 2020-10-04 2020-10-04 [facility] 1.2.840.114 [id number] 00:00:00 00:00:00 Assessment Naali S Health [id number] Surgical 4.2.7.2.686 Specialti [id number] [address] 2020-10-03 2020-10-03 Outpatient R [facility] [id number] Univers 14:00:00 14:00:00 ANALI [id number] ity [facility] 2020-10-03 2020-10-03 Outpatient Anuj BOYKIN [facility] [id number] Univers 14:00:00 14:00:00 [facility] 2020-09-30 2020-09-30 Outpatient Anuj BOYKIN [facility] [id number] Univers 08:00:00 08:00:00 ANALI ity [facility] 2020-09-30 2020-09-30 Outpatient [facility] [id number] Univers 08:00:00 08:00:00 [facility] 2020-09-30 2020-09-30 Soil Technologist Augustine, Veronica Lab Main [facility] 1.2.8 [id number] Univers 07:42:57 07:57:57 Visit Seth Roca 350.1.13.10 ity of [place].7.2.[place] [facility] [phone] Nh dical nal 353 [facility] 2020-09-30 2020-09-[address] [facility] [id number] Univers 00:00:00 00:00:00 [facility] [id number] it y of Surgical 4.2.7.2.686 Tim as Specialti [id number] Nh dical es 198 [facility]3] 2020-09-30 2020-09-[address] [facility] [id number] 00:00:00 00:00:00 [facility] Health [id number] Surgical 4.2.7.2.686 Specialti [id number] [address] 2020-09-29 2020-09-29 [facility] 1.2.840.114 [id number] Univers 12:28:56 23:59:00 Encounter Seth Gil [id number] ity of [place].2.[place] [id number] [facility] [address] [place] [address] 2020-09-29 2020-09-29 Office [facility] 1.2.840.114 [id number] Univers 13:51:51 15:05:33 Visit Anali LUMI Mask 350.1.13.10 it y of Surgical 4.2.7.2.686 Tim as Specialti [id number] Nh dical es 198 [facility]3] 2020-09-29 2020-09-29 Outpatient Anuj LUCRETIA [facility] [id number] Univers 13:45:00 13:45:00 ANALI [id number] ity [facility] 2020-09-29 2020-09-29 Outpatient [facility] [id number] Univers 13:45:00 13:45:00 [facility] 2020-09-29 2020-09-29 Telephone [facility] [id number] Univers 00:00:00 00:00:00 Anali LUMI Mask 350.1.13.10 it y of Surgical 4.2.7.2.686 Tim as Specialti [id number] Nh dical es 198 [facility]3] 2020-09-28 2020-09-28 Telephone [facility] 1.2.840.114 [id number] Univers 00:00:00 00:00:00 [facility] LUMI Mask 350.1.13.10 it y of Surgical 4.2.7.2.686 Tim as Specialti [id number] Nh dical es 198 [facility]3] 2020-09-28 2020-09-28 Telephone [facility] 1.2.840.114 [id number] Univers 00:00:00 00:00:00 Seth Health 350.1.13.10 it y of Surgical 4.2.7.2.686 Tim as Specialti [id number] Nh dical es 198 [facility]3] 2020-09-27 2020-09-27 Telephone [facility] [id number] Univers 00:00:00 00:00:00 Anali Leon Health 350.1.13.10 it y of Surgical 4.2.7.2.686 Tim as Specialti [phone] Nh dical es 198 [facility]3] 2020-09-26 2020-09-26 Outpatient [facility] [id number] Univers 16:00:00 16:00:00 ANALI [id number] ity [facility] 2020-09-26 2020-09-26 Outpatient R [facility] [id number] Univers 16:00:00 16:00:00 ANALI ity [facility] 2020-09-26 2020-09-26 Telephone [facility] [id number] Univers 00:00:00 00:00:00 Anali Leon Health 350.1.13.10 it y of Surgical 4.2.7.2.686 Tim as Specialti [id number] Nh dical es 198 [facility]3] 2020-09-23 2020-09-23 Outpatient [facility] [id number] Univers 10:15:00 10:15:00 SETH [id number] ity of [facility] 2020-09-23 2020-09-23 Outpatient R [facility] [id number] Univers 10:15:00 10:15:00 SETH itrebekah [facility] 2020-09-19 2020-09-19 Telephone [facility] 1.2.840.114 [id number] Univers 00:00:00 00:00:00 Seth L [facility] 350.1.13.10 it y of Surgical 4.2.7.2.686 Tim as Specialti [id number] Nh dical es 198 [facility]3] 2020-09-12 2020-09-12 [facility] [id number] Univers 08:14:00 14:20:00 Encounter Seth [place] 350.1.13.10 ity of [place] [id number] [facility] 071 [place] 2020-09-12 2020-09-12 Orders Doctor LUCÍA 1.2.840.114 [id number] Univers 00:00:00 00:00:00 Only Unassigned, CATIE 350.1.13.10 ity of [place] [facility] 4.2.7.2.686 Tim as [id number] [facility] 009 [place] 2020-09-09 2020-09-09 [facility] 1.2.840.114 [id number] Univers 14:17:36 23:59:00 Encounter Seth Pac[place] [id number] ity of [place] 4.2.7.2.686 [facility] [id number] [facility] 807 [place] 2020-09-09 2020-09-09 Soil Technologist [place], Adc Lab Main [place] 1.2.8 40.114 [id number] Univers 14:16:24 14:31:24 Visit Seth Roca Shun Gil 350.1.13.10 ity of [place] 4.2.7.2.686 [facility] [id number] Nh dical nal 353 [facility] 2020-09-09 2020-09-09 Laboratory Only, Adc Test [facility] 1.2.840. 114 [id number] Univers 14:15:01 14:30:01 Only Venkat Stark Louise 350.1.13.10 ity of [place] 4.2.7.2.686 [facility] [id number] [facility] 353 [place] 2020-09-09 2020-09-09 Outpatient R [facility] [id number] Univers 14:15:00 14:15:00 [id number] ity of [facility] 2020-09-09 2020-09-09 Outpatient R ROCABLANCHARD [facility] [id number] Univers 14:00:00 14:00:00 SETH ity of [facility] 2020-09-08 2020-09-08 Orders Doctor LUCÍA 1.2.840.114 [id number] Univers 00:00:00 00:00:00 Only Unassigned, CATIE 350.1.13.10 [facility] of [facility] 4.2.7.2.686 Tim as [phone] [facility] [address] [place] 2020-09-07 2020-09-07 Prep For Chanelle [facility] 1.2.840.114 [id number] Univers 00:00:00 00:00:00 Surgery [facility] 350.1.13.10 it y of Surgical 4.2.7.2.686 Tim as Specialti [phone] Me dical es 198 [facility] ([facility]3] 2020-09-06 2020-09-06 Office Lucretia [facility] 1.2.840.114 [id number] Univers 11:10:09 11:25:09 Visit Anali [facility] 350.1.13.10 it y of Surgical 4.2.7.2.686 Tim as Specialti [phone] Nh dical 198 [facility] ([facility]3] 2020-09-06 2020-09-06 Outpatient R [facility]CR[facility] [id number] Univers 10:00:00 10:00:00 ANALI rebekah [facility] 2020-09-06 2020-09-06 Orders Doctor LUCÍA 1.2.840.114 [id number] Univers 00:00:00 00:00:00 Only Unassigned, CATIE 350.1.13.10 [facility] 4.2.7.2.686 Tim as [phone] [facility] [address] [place] 2020-06-08 2020-06-08 Emergency Tracey, TRAUMA [id number] Univers 07:57:26 09:17:00 [facility] 350.1.13.10 [place] [phone] [facility] [address] [place] 2020-06-08 2020-06-08 Emergency X TRACEY [facility] ERT [id number] Univers 07:57:26 07:57:26 JARET [facility] 2020-04-06 2020-04-06 [facility] 1.2.840.114 [id number] Univers 11:02:11 12:59:00 Sun Gil 350.1.13.10 i ty [place] [id number] [facility] [address] [place] 2020-04-06 2020-04-06 Emergency X [facility] ERT [id number] Univers 10:49:00 10:49:00 ity of [facility] 2020-04-06 2020-04-06 Orders Doctor CASTREJON 1.2.840.114 [id number] Univers 00:00:00 00:00:00 Only Unassigned, CATIE 350.1.13.10 [facility] of [facility] 4.2.7.2.686 Tim as [phone] [address] 2019-07-16 2019-07-16 [facility] [id number] Univers 15:08:41 20:56:00 Jimbo Terrell 350.1.13.10 i [facility] 4.2.7.2.686 [facility] [phone] [place] [address] [place] 2019-05-20 2019-05-20 Out[facility] [id number] 16:15:00 16:15:00 [facility] 2019-05-07 2019-05-07 [facility] [id number] 15:30:00 15:30:00 t [facility] ent [facility] 2019-05-07 2019-05-07 [facility] [id number] 14:28:00 14:28:00 t [facility] ent [facility] 2019-05-06 2019-05-06 [facility] [id number] 11:28:00 11:28:00 t [facility] ent [facility] 2019-05-05 2019-05-05 [facility] [id number] 14:00:00 14:00:00 t [facility] ent [facility] 2019-04-28 2019-04-28 [facility] [id number] 09:30:00 09:30:00 t [facility] ent [facility] 2019-04-24 2019-04-24 [facility] [id number] 10:53:00 10:53:00 t [facility] [place] ent [facility] 2019-04-24 2019-04-24 [facility] [id number] 10:06:00 10:06:00 t [facility] ent Clinics 2019-01-12 2019-01-12 [facility] 10:00:00 10:00:00 [facility] ent Clinics 2013-04-14 2013-04-14 Emergency E ESTEE [facility] [id number] [facility] 00:19:00 03:12:00 [facility] Results Test Description Test Test Results Result Source Time Comments Comments XR FINGERS 2 VW 2020-09- HISTORY: ?Pain. Univ ersity of RIGHT 19 FINDINGS: AP and [place] N[place] dical 18:49:48 lateral views of right Br anch middle finger showed comminutedminimally healing fractures in the middle phalanx. Callusformation noted around the fracture sites although fracture lines are stillfairly well visible. Soft tissue swelling of the finger along with mild degenerative changes inDIP joint noted. Finger is held in flexed position at the level of DIP joint which could bedue to tendon and/or ligament injury. CONCLUSIONS: Healing fractures of middle phalanx of the right middlefinger. [facility], Radiant Results Inft User - 09/29/2020 12:50 PM CSTHISTORY: Pain.FINDINGS: AP and lateral views of right middle finger showed comminutedminimally healing fractures in the middle phalanx. Callusformation noted around the fracture sites although fracture lines are stillfairly well visible. Soft tissue swelling of the finger along with mild degenerative changes inDIP joint noted. Finger is held in flexed position at the level of DIP joint which could bedue to tendon and/or ligament injury.CONCLUSIONS: Healing fractures of middle phalanx of the right middlefinger. [place] TIME OR 2020-09- These images do not Unive rsity of (NON-REPORTABLE) 02 require a Radiology [facility] 19:40:57 diagnostic report. Branch [place] TIME OR 2020-09- These images do not Unive rsity of (NON-REPORTABLE) 02 require a Radiology [facility] 19:23:57 diagnostic report. Branch XR CHEST 2 VW 2020-08- No evidence of acute U niversity of 30 cardiopulmonary [place] [facility] ical 19:56:49 disease.2 VIEWS OF THE Br anch CHEST HISTORY: pre-op COMPARISON: none TECHNIQUE: PA and lateral views of the chest. FINDINGS: The lungs are clear. There is no focal consolidation, pleural effusion orpneumothorax. The cardiomediastinal silhouette is within normal limits. ?No acute bonyabnormalities are seen. [facility], Radiant Results Inft User - 09/09/2020 2:57 PM CDT2 VIEWS OF THE CHESTHISTORY: pre-op COMPARISON: noneTECHNIQUE: PA and lateral views of the chest.FINDINGS:The lungs are clear. There is no focal consolidation, pleural effusion orpneumothorax.The cardiomediastinal silhouette is within normal limits. No acute bonyabnormalities are seen.IMPRESSIONNo evidence of acute cardiopulmonary disease. Basic Metabolic Panel (NA, K, CL, CO2, GLUCOSE, BUN, 2020-05 13:47:00 CREATININE, CA) Test Item Value Reference Range Interpretation Comme nts NA (test code = 4105523509) 136 mmol/L 135-145 K (test code = 4628437642) 4.4 mmol/L 3.5-5 CL (test code = 9480713914) 106 mmol/L 98-108 CO2 TOTAL (test code = 23 mmol/L 23-31 6551395085) AGAP (test code = 8542784456) 2-16 BUN (test code = 8303806681) 14 mg/dL 7-23 GLUCOSE (test code = 5832788726) 91 mg/dL 70-110 CREATININE (test code = 0.59 mg/dL 0.5-1.04 9324300202) CALCIUM (test code = 1026005636) 9.1 mg/dL 8.6-10.6 eGFR Calculation (Non- mL/min/1.73m2 Thai) (test code = 0362349901) eGFR Calculation ( mL/min/1.73m2 Thai) (test code = 6525448159) LUCY (test code = LUCY) Association of Glomerular Filtration Rate (GFR) and Staging of Kidney Disease* + +--------- + ----+| GFR (mL/min/1.73 m2) ?| With Kidney Damage ?| ?Without Kidney Damage+ +--- + +| ?>90 ?| ?Stage one ?| ? Normal ?+ +-------- + -----+| ?60-89 ?| ?Stage two ?| ? Decreased GFR ? + +--------- + ----+| ?30-59 ?| ?Stage three ?| ? Stage three ? + +--------- + ----+| ?15-29 ?| ?Stage four ? | ? Stage four ?+ +-------- + -----+| ?<15 (or dialysis) ? ?| ?Stage five ? | ? Stage five ?+ +-------- + -----+ *Each stage assumes the associated GFR level has been in effect for at least three months. ?Stages 1 to 5, with or without kidney disease, indicate chronic kidney disease. Notes: Determination of stages one and two (with eGFR >59mL/min/1.73 m2) requires estimation of kidney damage for at least three months as defined by structural or functional abnormalities of the kidney, manifested by either:Pathological abnormalities or Markers of kidney damage (including abnormalities in the composition of the blood or urine or abnormalities in imaging tests). [facility] (ALB, T.PRO, BILI T, BU/BC, ALT, AST, ALK PHOS)2020-06-08 13:47:00 Test Item Value Reference Range Interpretation Comments TOTAL BILI (test code = 7085961050) 0.3 mg/dL 0.1-1.1 BILI UNCON (test code = 3192965523) 0.5 mg/dL 0.1-1.1 BILI CONJ (test code = 1191344418) 0.0 mg/dL 0-0.3 T PROTEIN (test code = 3256807034) 7.1 g/dL 6.3-8.2 ALBUMIN (test code = 7102937307) 4.2 g/dL 3.5-5 ALK PHOS (test code = 0525417540) 53 U/L 34-122 ALTv (test code = 1742-6) 22 U/L 5-35 AST(SGOT) (test code = 7887987381) 32 U/L 13-40 Lab Interpretation (test code = Normal 83783-6) [facility] CampusLip[facility] [id number] 13:47:00 Test Item Value Reference Range Interpretation Comments LIPASE (test code = 4904008913) 142 U/L 0-220 Lab Interpretation (test code = Normal 77165-6) [facility] CampusUrinalysis2020-07-29 13:47:00 Test Item Value Reference Range Interpretation Comments APPEARANCE (test code = Clear Clear 5900367389) COLOR (test code = Straw Yellow A 5390139358) PH (test code = 4.8-8.0 7516727901) SP GRAVITY (test code = 1.003-1.030 L 8914447505) GLU U QUAL (test code = Normal Normal 4483022956) BLOOD (test code = Negative Negative 8227747827) KETONES (test code = Negative Negative 1796161425) PROTEIN (test code = Negative Negative 2887-8) UROBILIN (test code = Normal Normal 4878729595) BILIRUBIN (test code = Negative Negative 1183015348) NITRITE (test code = Negative Negative 7202634367) LEUK MAYNOR (test code = Negative Negative 9354587854) RBC/HPF (test code = <1 See_Comment [Autom ated message] 2514823898) The system Oders[employer] generated this result transmitted ref erence range: 0 - 3 HP F. The reference range was not used to int erpret this result as normal/abnormal . WBC/HPF (test code = <1 See_Comment [Autom ated message] 8157327937) The system [employer] generated this result transmitted ref erence range: 0 - 5 HP F. The reference range was not used to int erpret this result as normal/abnormal . BACTERIA (test code = Negative Negative 8573538897) SQ EPITH (test code = <1 See_Comment [Auto mated message] 0321084809) The system [employer] generated this result transmitted ref erence range: <=2 HPF. The reference range was not used to int erpret this result as normal/abnormal . Lab Interpretation (test Abnormal code = 64281-9) [facility] CampusCBC with [id number] 13:37:00 Test Item Value Reference Range Interpretation Comments WBC (test code = See_Comment [Automated 2490-2) message] The sy stem which generated this result transmitted reference range : 4.30 - 11.10 10*3/?L. The reference range was not used to interpret this result as normal/abnormal . RBC (test code = See_Comment [Automated 769-8) message] The sy stem which generated this result transmitted reference range : 3.93 - 5.25 10*6/?L. The reference range was not used to interpret this result as normal/abnormal . HGB (test code = 8.9 g/dL 11.6-15 L 718-7) HCT (test code = 29.5 % 35.7-45.2 L 4544-3) MCV (test code = 72.0 fL 80.6-95.5 L 787-2) MCH (test code = 21.7 pg 25.9-32.8 L 785-6) MCHC (test code = 30.2 g/dL 31.6-35.1 L 786-4) RDW-SD (test code = 42.9 fL 39-49.9 74849-0) RDW-CV (test code = 16.6 % 12-15.5 H 788-0) PLT (test code = See_Comment [Automated 777-3) message] The sy stem which generated this result transmitted reference range : 166 - 358 10*3/ ?L. The reference r shantanu was not used to interpret this result as normal/abnormal . MPV (test code = 9.3 fL 9.5-12.9 L 35278-0) NRBC/100 WBC (test See_Comment [Automat ed code = 1350651739) message] The system which generated this result transmitted reference range : 0.0 - 10.0 /100 WBCs. The refer ence range was not u sed to interpret th is result as normal/abnormal . NRBC x10^3 (test code <0.01 See_Comment [Auto mated = 5174114331) message] The s ystem which generated this result transmitted reference range : 10*3/?L. The reference range was not used to interpret this result as normal/abnormal . GRAN MAT (NEUT) % 55.7 % (test code = 770-8) IMM GRAN % (test code 0.20 % = 4672408053) LYMPH % (test code = 30.8 % 736-9) MONO % (test code = 10.2 % 5905-5) EOS % (test code = 2.1 % 713-8) BASO % (test code = 1.0 % 706-2) GRAN MAT x10^3(ANC) 3.40 10*3/uL 1.88-7.09 (test code = 9554770762) IMM GRAN x10^3 (test <0.03 0-0.06 code = 8382901576) LYMPH x10^3 (test code 1.88 10*3/uL 1.32-3.29 = 731-0) MONO x10^3 (test code 0.62 10*3/uL 0.33-0.92 = 742-7) EOS x10^3 (test code = 0.13 10*3/uL 0.03-0.39 711-2) BASO x10^3 (test code 0.06 10*3/uL 0.01-0.07 = 704-7) Lab Interpretation Abnormal (test code = 10360-6) [facility] CampusPO[facility] [id number] 13:22:00 Test Item Value Reference Range Interpretation Comments POCT PREG (test code = 1605) NEGATIVE On board controls acceptable with PRESENT C Line (test code = 3574) POCT PREG LOT # (test code = 3575) [id number] POCT PREG TEST DATE (test 08/10/2021 code = 3576) Lab Interpretation (test code = Normal 74276-2) [facility] STREP SCREEN FOR GROUP [id number] 16:56:00 Test Item Value Reference Range Interpretation Comments Streptococcus pyogenes (group A) Negative Negative antigen (test code = 19116-9) Lab Interpretation (test code = Normal 28055-4) [facility] CampusUrinalysis2019-09-05 22:17:00 Test Item Value Reference Range Interpretation Comments APPEARANCE (test code = Clear Clear 8915461137) COLOR (test code = Yellow Yellow 4203983791) PH (test code = 4.8-8.0 3810970235) SP GRAVITY (test code = 1.003-1.030 7070742224) GLU U QUAL (test code = Negative Negative 0955419376) BLOOD (test code = Trace Negative A 1923412494) KETONES (test code = Trace Negative A 1126761946) PROTEIN (test code = Negative Negative 2887-8) UROBILIN (test code = 0.2 mg/dL See_Comment [Auto mated message] 2016981010) The system Odersun generated this result transmit an reference range : 0-1.0 mg/dL. Th e reference range was not used to interpret this result as normal/abnormal . BILIRUBIN (test code = Small Negative A 4637852481) NITRITE (test code = Negative Negative 2769961089) LEUK MAYNOR (test code = Negative Negative 7368040777) RBC/HPF (test code = See_Comment [Autom ated message] 0839469273) The system Odersun generated this result transmit an reference range : 0 - 3 HPF. The refe rence range was not u sed to interpret th is result as normal/abnormal . WBC/HPF (test code = See_Comment [Autom ated message] 4282097820) The system O[employer] generated this result transmit an reference range : 0 - 5 HPF. The refe rence range was not u sed to interpret th is result as normal/abnormal . BACTERIA (test code = Negative Negative 1844469275) AMORPHOUS (test code = Few HPF 7366342609) SQ EPITH (test code = HPF 7928282917) Ictotest (test code = Negative 3975008030) Lab Interpretation (test Abnormal code = 10538-4) [facility] CampusTHYROID STIMULATING [id number] 22:15:00 Test Item Value Reference Range Interpretation Comments TSH (test code = See_Comment [Automated message] 4520595743) The system Odersun generated this result transmitted ref erence range: 0.45 - 4 .70 mIU/L. The refe rence range was not u sed to interpret this result as normal/abnor mal. Lab Interpretation (test Normal code = 53331-5) [facility] CampusFR [id number] 22:01:00 Test Item Value Reference Range Interpretation Comments FREE T4 (test code = 0951333460) 1.34 ng/dL 0.78-2.2 Lab Interpretation (test code = Normal 04400-8) [facility] / [facility] - DRUG SCREEN [id number] 21:59:00 Test Item Value Reference Range Interpretation Comments BENZO U (test code = Presumptive Positive Negative A 1016969497) ILEANA U (test code = Negative Negative 8981406268) AMPHET (test code = Negative Negative 7925400414) THC (test code = Negative Negative 3338238396) METHADONE (test code = Negative Negative 6100130243) Meth U (test code = Negative Negative 0467556977) OPIATES (test code = Negative Negative 1626679480) Cocaine Metabolite (test Presumptive Positive Negative A code = 9436737658) PROPOXY (test code = Negative Negative 5299736398) Tric U (test code = Negative Negative 3402107093) PCP (test code = Negative Negative 8340346777) OXYCOD (test code = Negative Negative 8514127418) LUCY (test code = LUCY) Urine Drug Cutoff RangesBenzodiazepines : ? ? 150 ng/mLBarbiturates: ?200 ng/mLAmphetamine: ? 500 ng/mLCannabinoids: ?50?ng/mLMethadone: ? 200 ng/mLMethamphetamine: ? 500 ng/mL Opiates: ? 100 ng/mL or 2000 ng/mLCocaine: ? 150 ng/mLPropoxyphene:?30 0 ng/mLTricyclics:?300 ng/mLOxycodone:? 100 ng/mLPCP:? 25?ng/mLThe results are to be used only for medical (i.e., treatment) purposes. Unconfirmed screening results must not be used for non-medical purposes (e.g., employment testing, legal testing). Lab Interpretation (test Abnormal code = 14300-6) [facility] CampusETHANOL2019-09-05 21:54:00 Test Item Value Reference Range Interpretation Comments ALCOHOL (test code = <10 mg/dL 6554353249) LUCY (test code = LUCY) <10 Tanzafiz91-725 Toxic>100 Depression of [employer]>400 Fatalities Reported [facility] CampusSALICYLATE2019-09-05 21:54:00 Test Item Value Reference Range Interpretation Comments SALICYLATE (test code <10 mg/L = 3152779874) LUCY (test code = LUCY) Therapeutic Range:? Analgesic and Antipyretic Use? 20-100 mg/L? Anti-Inflammatory Use? 100-250 mg/LToxic Range:? Greater than 300 mg/L [facility] CampusACETAMINOPHEN2019-09-05 21:54:00 Test Item Value Reference Range Interpretation Comments ACETAMINOP (test code = <10.0 10-30 L 9296818898) LUCY (test code = LUCY) Toxic: Greater than 200 ug/mL @ 4 hour post ingestion or greater than 50 ug/mL @ 12 hour post ingestion Lab Interpretation (test Abnormal code = 76449-3) [facility] CampusHepatic Function Panel (ALB, T.PRO, BILI T, BU/BC, ALT, AST, ALK PHOS)2019-07-16 21:43:00 Test Item Value Reference Range Interpretation Comments TOTAL BILI (test code = 4844702049) 0.2 mg/dL 0.1-1.1 BILI UNCON (test code = 0499640525) 0.2 mg/dL 0.1-1.1 BILI CONJ (test code = 8588003244) 0.0 mg/dL 0-0.3 T PROTEIN (test code = 1681185850) 7.2 g/dL 6.3-8.2 ALBUMIN (test code = 2389461470) 4.4 g/dL 3.5-5 ALK PHOS (test code = 6533522747) 54 U/L 34-122 ALT(SGPT) (test code = 6100422346) 26 U/L 9-51 AST(SGOT) (test code = 2461835836) 25 U/L 13-40 Lab Interpretation (test code = Normal 95884-4) [facility] CampusBasic Metabolic Panel (NA, K, CL, CO2, GLUCOSE, BUN, CREATININE, CA)2019-07-16 21:42:00 Test Item Value Reference Range Interpretation Comments NA (test code = 148 mmol/L 135-145 H 7669658713) K (test code = 3.4 mmol/L 3.5-5 L 6113703570) CL (test code = 113 mmol/L 98-108 H 2287381271) CO2 TOTAL (test code = 25 mmol/L 23-31 0740755035) AGAP (test code = 2-16 8322655207) BUN (test code = 11 mg/dL 7-23 5772051724) GLUCOSE (test code = 98 mg/dL 70-110 9015583323) CREATININE (test code = 0.78 mg/dL 0.5-1.04 9125049721) CALCIUM (test code = 9.2 mg/dL 8.6-10.6 8333349405) eGFR Calculation mL/min/1.73m2 (Non-) (test code = 8023895002) eGFR Calculation mL/min/1.73m2 () (test code = 0669662067) LUCY (test code = LUCY) Association of Glomerular Filtration Rate (GFR) and Staging of Kidney Disease*+ + + +| GFR (mL/min/1.73 m2)?| With Kidney Damage?|?Without Kidney Damage+ --------+ --------+ +|?>90?|?S tage one?|? Normal?+ ---------+ ---------+ +|?60-89? |?Stage two??|? Decreased GFR? + --+ --+ ------+|?30-59?|?Stage three?|? Stage three? + --+ --+ ------+|?15-29?|?Stage four? |? Stage four?+ -------+ -------+ +|?<15 (or dialysis)?|?Stage five? |? Stage five?+ -------+ -------+ +*Each stage assumes the associated GFR level has been in effect for at least three months.?Stages 1 to 5, with or without kidney disease, indicate chronic kidney disease.Notes: Determination of stages one and two (with eGFR >59mL/min/1.73 m2) requires estimation of kidney damage for at least three months as defined by structural or functional abnormalities of the kidney, manifested by either:Pathological abnormalities or Markers of kidney damage (including abnormalities in the composition of the blood or urine or abnormalities in imaging tests). Lab Interpretation Abnormal (test code = 73248-1) [facility] WITH [id number] 21:24:00 Test Item Value Reference Range Interpretation Comments WBC (test code = See_Comment L [Automated 4065-2) message] The sy stem which generated this result transmitted reference range : 4.30 - 11.10 10*3/?L. The reference range was not used to interpret this result as normal/abnormal . RBC (test code = See_Comment [Automated 835-8) message] The sy stem which generated this result transmitted reference range : 3.93 - 5.25 10*6/?L. The reference range was not used to interpret this result as normal/abnormal . HGB (test code = 8.6 g/dL 11.6-15 L 718-7) HCT (test code = 29.5 % 35.7-45.2 L 4544-3) MCV (test code = 70.9 fL 80.6-95.5 L 787-2) MCH (test code = 20.7 pg 25.9-32.8 L 785-6) MCHC (test code = 29.2 g/dL 31.6-35.1 L 786-4) RDW-SD (test code = 51.6 fL 39-49.9 H 21009-8) RDW-CV (test code = 20.4 % 12-15.5 H 788-0) PLT (test code = See_Comment [Automated 777-3) message] The sy stem which generated this result transmitted reference range : 166 - 358 10*3/ ?L. The reference r shantanu was not used to interpret this result as normal/abnormal . MPV (test code = 9.2 fL 9.5-12.9 L 31502-2) NRBC/100 WBC (test See_Comment [Automat ed code = 5514775912) message] The system which generated this result transmitted reference range : 0.0 - 10.0 /100 WBCs. The refer ence range was not u sed to interpret th is result as normal/abnormal . NRBC x10^3 (test code <0.01 See_Comment [Auto mated = 8814433463) message] The s ystem which generated this result transmitted reference range : 10*3/?L. The reference range was not used to interpret this result as normal/abnormal . GRAN MAT (NEUT) % 58.7 % (test code = 770-8) IMM GRAN % (test code 0.30 % = 7743235031) LYMPH % (test code = 24.1 % 736-9) MONO % (test code = 15.5 % 5905-5) EOS % (test code = 0.8 % 713-8) BASO % (test code = 0.6 % 706-2) GRAN MAT x10^3(ANC) 2.12 10*3/uL 1.88-7.09 (test code = 5332570699) IMM GRAN x10^3 (test <0.03 0-0.06 code = 5880811578) LYMPH x10^3 (test code 0.87 10*3/uL 1.32-3.29 L = 731-0) MONO x10^3 (test code 0.56 10*3/uL 0.33-0.92 = 742-7) EOS x10^3 (test code = 0.03 10*3/uL 0.03-0.39 711-2) BASO x10^3 (test code <0.03 0.01-0.07 = 704-7) Lab Interpretation Abnormal (test code = 89798-6) [facility], [id number] 20:37:00 Test Item Value Reference Range Interpretation Comments POCT PREG (test code = 1605) negative On board controls acceptable with present C Line (test code = 3574) POCT PREG LOT # (test code = 3575) [id number] POCT PREG TEST DATE (test 11/10/2020 code = 3576) Lab Interpretation (test code = Normal 21284-9) [facility]"
[2021-11-28] MEDS ORDERED: HYDROCODONE/APAP 10/325 TAB ONE (15:41)
[2021-11-28] MEDS ORDERED: ONDANSETRON 4 MG (ODT) TAB ONE (15:41)
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
[2021-11-28 18:27] VITALS: BP 139/98; TEMP 97.8; O2SAT 97
== END 2021-11-28 18:11 | disposition home or self-care (01) ==
LOC: ER 14:30
DX: M79.10 Myalgia, unspecified site (principal); V47.6XXA Car passenger injured in collision with fixed or stationary object in traffic accident, initial encounter; Z88.6 Allergy status to analgesic agent
CPT/HCPCS: 70450; 71250; 72125; 99284

== ENCOUNTER 2021-12-02 15:10 | Emergency (ER) | payer OTHER ==
--- OUTSIDE RECORDS SUMMARY | 2021-12-02 15:14 | XMS REPORT | Continuity of Care Document ---
:1975 Author Organization [facility] t Address [address] [place] [address] Care Team Providers Name Role Phone Shun [...] Number Effective Date Expiration Date Edward dubois [facility] [id number] 2018 00:00:00 PLUS Problems Condition Condition Condition [...] encounter automatic ally from request for surgery [id number] Severe Severe Problem Active [facility] [...] rs active active ity of problems problems [facility] Allergies, Adverse Reactions, Alerts Allergy Allergy Status Severity Reaction(s) Onset Inactive Treating Comm ents Source Name Type Date Date Clinician Tramadol Propensi Active Nausea 2017-11 Univer s ty to and/or 1-05 ity of adverse Vomiting 00:00: [place] reaction [address] [place] [address] TRAMADOL DRUG Active ITCHING 2017-11 Univers INGREDI 1-05 ity of 00:00: [address] Social History Social Habit Start Date Stop Date Quantity Comments Source History of tobacco Cigarette Smoker University of use [facility] Exposure to Not sure University of SARS-CoV-2 (event) [facility] Cigarettes smoked 2020-09-29 2020-09-29 Univers ity of current (pack per 00:00:00 00:00:00 [facility] ) - Reported Branch Tobacco use and 2020-09-29 2020-09-29 Never used Universit y of exposure 00:00:00 00:00:00 [facility] Alcohol intake 2020-09-29 2020-09-29 University of 00:00:00 00:00:00 [facility] Tobacco Comment 2020-09-09 2020-09-09 1 pack/3 days Univer sity of 00:00:00 00:00:00 [place] [facility] History SDOH 2020-09-06 2020-09-06 1 University o f Alcohol Frequency 00:00:00 00:00:00 [place] [facility] History SDOH 2020-09-06 2020-09-06 99 University o f Alcohol Std Drinks 00:00:00 00:00:00 [place] [facility] History SDOR 2020-09-06 2020-09-06 1 University o f Alcohol Binge 00:00:00 00:00:00 [place] [facility] Sex [birth year] Univers y of 00:00:00 00:00:00 [facility] Smoking Status Start Date Stop Date Source Current every day smoker 2020-09-29 00:00:00 Uni versity [facility] Unknown if ever smoked [facility] y [facility] Medications Ordered Filled Start Stop [...] Indication s: acute pain clindamycin 2019-11- No [id number] 300mg Take 2 Univers 150 mg 0-27 11-07 capsules ity of capsule 00:00: 05:59 by mouth 4 Tim as 00 :00 (four) Medical times Branch daily for 10 days. clindamycin 2019-11- No [id number] 300mg Take 2 Univers 150 mg 0-27 11-07 capsules ity of capsule 00:00: 05:59 by mouth 4 Tim as 00 :00 (four) Medical times Branch daily for 10 days. clindamycin 2019- 2020- No [id number] 300mg Take 2 Univers 150 mg 0-27 11-07 capsules ity of capsule 00:00: 05:59 by mouth 4 Tim as 00 :00 (four) Medical times Branch daily for 10 days. clindamycin 2019- 2020- No [id number] 300mg Take 2 Univers 150 mg 0-27 11-07 capsules ity of capsule 00:00: 05:59 by mouth 4 Tim as 00 :00 (four) Medical times Branch daily for 10 days. clindamycin 2019-11- No [id number] 300mg Take 2 Univers 150 mg 0-27 11-07 capsules ity of capsule 00:00: 05:59 by mouth 4 Tim as 00 :00 (four) Medical times Branch daily for 10 days. clindamycin 2019- 2020- No [id number] 300mg Take 2 Univers 150 mg 0-27 11-07 capsules ity of capsule 00:00: 05:59 by mouth 4 Tim as 00 :00 (four) Medical times Branch daily for 10 days. clindamycin 2019- 2020- No [id number] 300mg Take 2 Univers 150 mg 0-27 11-07 capsules ity of capsule 00:00: 05:59 by mouth 4 Tim [place] 00 :00 (four) Medical times Branch daily for 10 days. clindamycin 2019- 2020- No [id number] 300mg Take 2 Univers 150 mg 0-27 11-07 capsules ity of capsule 00:00: 05:59 by mouth 4 Tim as 00 :00 (four) Medical times Branch daily for 10 days. clindamycin 2019- 2020- No [id number] 300mg Take 2 Univers 150 mg 0-27 [...] CAPSULE BY ity of capsule 00:00: MOUTH [place] THREE Medical TIMES Branch DAILY NEEDED FOR ACUTE ANXIETY traZODone 2020- Yes TAKE 1 TO Uni vers 100 mg 0-22 2 TABLETS ity of tablet 00:00: BY MOUTH [place] EVERY DAY Medical AT BEDTIME Branch DIRECTED NEEDED FOR INSOMNIA divalproex 2020- Yes 500mg Take 500 Un tin 500 mg EC 0-22 mg by ity of tablet 00:00: [facility] [place] (two) Medical times Branch daily. hydrOXYzine 2019- Yes TAKE 1 Univ ers 50 mg 0-22 CAPSULE BY ity of capsule 00:00: [facility] THREE Medical TIMES Branch DAILY NEEDED FOR ACUTE ANXIETY traZODone 2019- Yes TAKE 1 TO Uni vers 100 mg 0-22 2 TABLETS ity of tablet 00:00: BY MOUTH [place] EVERY DAY Medical AT BEDTIME Branch DIRECTED NEEDED FOR INSOMNIA divalproex 2020- Yes 500mg Take 500 Un tin 500 mg EC 0-22 mg by ity of tablet 00:00: [facility] [place] ([facility]) Medical times Branch daily. hydrOXYzine 2019- Yes TAKE 1 Univ ers 50 mg 0-22 CAPSULE BY ity of capsule 00:00: [facility] THREE Medical TIMES Branch DAILY NEEDED FOR ACUTE ANXIETY traZODone 2019- Yes TAKE 1 TO Uni vers 100 mg 0-22 2 TABLETS ity of tablet 00:00: BY [facility] EVERY DAY Medical AT BEDTIME Branch DIRECTED NEEDED FOR INSOMNIA divalproex 2020- Yes 500mg Take 500 Un tin 500 mg EC 0-22 mg by ity of tablet 00:00: [facility] [place] ([facility]) Medical times Branch daily. hydrOXYzine 2019- Yes TAKE 1 Univ ers 50 mg 0-22 CAPSULE BY ity of capsule 00:00: [facility] THREE Medical TIMES Branch DAILY NEEDED FOR ACUTE ANXIETY traZODone 2020- Yes TAKE 1 TO Uni vers 100 mg 0-22 2 TABLETS ity of tablet 00:00: BY MOUTH [place] EVERY DAY Medical AT BEDTIME Branch DIRECTED NEEDED FOR INSOMNIA divalproex 2020-1 Yes 500mg Take 500 Un tin 500 mg EC 0-22 mg by ity of tablet 00:00: mouth [place] (two) Medical times Branch daily. hydrOXYzine 2020-1 Yes TAKE 1 Univ ers 50 mg 0-22 CAPSULE BY ity of capsule 00:00: MOUTH [place] [facility] Medical TIMES Branch DAILY NEEDED FOR ACUTE ANXIETY traZODone 2020-1 Yes TAKE 1 TO Uni vers 100 mg 0-22 2 TABLETS ity of tablet 00:00: BY MOUTH [place] EVERY DAY Medical AT BEDTIME Branch DIRECTED NEEDED FOR INSOMNIA divalproex 2020-1 Yes 500mg Take 500 Un tin 500 mg EC 0-22 mg by ity of tablet 00:00: mouth [place] (two) Medical times Branch daily. hydrOXYzine 2020- Yes TAKE 1 Univ ers 50 mg 0-22 CAPSULE BY ity of capsule 00:00: [facility] Medical TIMES Branch DAILY NEEDED FOR ACUTE ANXIETY traZODone 2020-1 Yes TAKE 1 TO Uni vers 100 mg 0-22 2 TABLETS ity of tablet 00:00: BY MOUTH [place] EVERY DAY Medical AT BEDTIME Branch DIRECTED NEEDED FOR INSOMNIA divalproex 2020-1 Yes 500mg Take 500 Un tin 500 mg EC 0-22 mg by ity of tablet 00:00: mouth [place] (two) Medical times Branch daily. hydrOXYzine 2020-1 Yes TAKE 1 Univ ers 50 mg 0-22 CAPSULE BY ity of capsule 00:00: [facility] Medical TIMES Branch DAILY NEEDED FOR ACUTE ANXIETY traZODone 2020-1 Yes TAKE 1 TO Uni vers 100 mg 0-22 2 TABLETS ity of tablet 00:00: BY MOUTH [place] EVERY DAY Medical AT BEDTIME Branch DIRECTED NEEDED FOR INSOMNIA divalproex 2020-1 Yes 500mg Take 500 Un tin 500 mg EC 0-22 mg by ity of tablet 00:00: mouth [place] (two) Medical times Branch daily. hydrOXYzine 2020-1 Yes TAKE 1 Univ ers 50 mg 0-22 CAPSULE BY ity of capsule 00:00: [facility] THREE Medical TIMES Branch DAILY NEEDED FOR ACUTE ANXIETY traZODone 2020-1 Yes TAKE 1 TO Uni vers 100 mg 0-22 2 TABLETS ity of tablet 00:00: BY MOUTH [place] EVERY DAY Medical AT BEDTIME Branch DIRECTED NEEDED FOR INSOMNIA divalproex 2020-1 Yes 500mg Take 500 Un tin 500 mg EC 0-22 mg by ity of tablet 00:00: mouth [place] (two) Medical times Branch daily. hydrOXYzine 2020-1 Yes TAKE 1 Univ ers 50 mg 0-22 CAPSULE BY ity of capsule 00:00: [facility] Medical TIMES [place] DAILY NEEDED FOR ACUTE ANXIETY traZODone 2020-1 Yes TAKE 1 TO Uni vers 100 mg 0-22 2 TABLETS ity of tablet 00:00: BY [facility] EVERY DAY Medical AT BEDTIME Branch DIRECTED NEEDED FOR INSOMNIA divalproex 2020-1 Yes 500mg Take 500 Un tin 500 mg EC 0-22 mg by ity of tablet 00:00: [facility] [place] (two) Medical times Branch daily. hydrOXYzine 2020-1 Yes TAKE 1 Univ ers 50 mg 0-22 CAPSULE BY ity of capsule 00:00: [facility] Medical TIMES [place] DAILY NEEDED FOR ACUTE ANXIETY traZODone 2020-1 Yes TAKE 1 TO Uni vers 100 mg 0-22 2 TABLETS ity of tablet 00:00: BY [facility] EVERY DAY Medical AT BEDTIME Branch DIRECTED NEEDED FOR INSOMNIA divalproex 2020-1 Yes 500mg Take 500 Un tin 500 mg EC 0-22 mg by ity of tablet 00:00: [facility] [place] (two) Medical times Branch daily. hydrOXYzine 2020-1 Yes TAKE 1 Univ ers 50 mg 0-22 CAPSULE BY ity of capsule 00:00: [facility] Medical TIMES [place] DAILY NEEDED FOR ACUTE ANXIETY traZODone 2020-1 Yes TAKE 1 TO Uni vers 100 mg 0-22 2 TABLETS ity of tablet 00:00: BY [facility] EVERY DAY Medical AT BEDTIME Branch DIRECTED NEEDED FOR INSOMNIA divalproex 2020-1 Yes 500mg Take 500 Un tin 500 mg EC 0-22 mg by ity of tablet 00:00: [facility] [place] (two) Medical times Branch daily. hydrOXYzine 2020-1 Yes TAKE 1 Univ ers 50 mg 0-22 CAPSULE BY ity of capsule 00:00: [facility] THREE Medical TIMES Branch DAILY NEEDED FOR ACUTE ANXIETY traZODone 2020-1 Yes TAKE 1 TO Uni vers 100 mg 0-22 2 TABLETS ity of tablet 00:00: BY [facility] EVERY DAY Medical AT BEDTIME Branch DIRECTED NEEDED FOR INSOMNIA divalproex 2020-1 Yes 500mg Take 500 Un tin 500 mg EC 0-22 mg by ity of tablet 00:00: mouth [place] (two) Medical times Branch daily. hydrOXYzine 2020-1 Yes TAKE 1 Univ ers 50 mg 0-22 CAPSULE BY ity of capsule 00:00: MOUTH [place] THREE Medical TIMES Branch DAILY NEEDED FOR ACUTE ANXIETY traZODone 2020-1 Yes TAKE 1 TO Uni vers 100 mg 0-22 2 TABLETS ity of tablet 00:00: BY MOUTH [place] EVERY DAY Medical AT BEDTIME Branch DIRECTED NEEDED FOR INSOMNIA divalproex 2020-1 Yes 500mg Take 500 Un tin 500 mg EC 0-22 mg by ity of tablet 00:00: mouth [address] [place] [address] (two) Medical times Branch daily. hydrOXYzine 2020-1 Yes TAKE 1 Univ ers 50 mg 0-22 CAPSULE BY ity of capsule 00:00: MOUTH [place] THREE Medical TIMES [place] DAILY NEEDED FOR ACUTE ANXIETY traZODone 2020-1 Yes TAKE 1 TO Uni vers 100 mg 0-22 2 TABLETS ity of tablet 00:00: BY MOUTH [place] EVERY DAY Medical AT BEDTIME Branch DIRECTED NEEDED FOR INSOMNIA divalproex 2020-1 Yes 500mg Take 500 Un tin 500 mg EC 0-22 mg by ity of tablet 00:00: mouth [address] [place] [address] (two) Medical times Branch daily. hydrOXYzine 2020-1 Yes TAKE 1 Univ ers 50 mg 0-22 CAPSULE BY ity of capsule 00:00: MOUTH [place] THREE Medical TIMES [place] DAILY NEEDED FOR ACUTE ANXIETY traZODone 2020-1 Yes TAKE 1 TO Uni vers 100 mg 0-22 2 TABLETS ity of tablet 00:00: BY [place] [address] EVERY DAY Medical AT BEDTIME Branch DIRECTED NEEDED FOR INSOMNIA divalproex 2020-1 Yes 500mg Take 500 Un tin 500 mg EC 0-22 mg by ity of tablet 00:00: mouth [address] [place] [address] (two) Medical times Branch daily. hydrOXYzine 2020-1 Yes TAKE 1 Univ ers 50 mg 0-22 CAPSULE BY ity of capsule 00:00: MOUTH [place] THREE Medical TIMES Branch DAILY NEEDED FOR ACUTE ANXIETY traZODone 2020-1 Yes TAKE 1 TO Uni vers 100 mg 0-22 2 TABLETS ity of tablet 00:00: BY MOUTH [place] EVERY DAY Medical AT BEDTIME Branch DIRECTED NEEDED FOR INSOMNIA divalproex 2020-1 Yes 500mg Take 500 Un tin 500 mg EC 0-22 mg by ity of tablet 00:00: mouth [place] (two) Medical times Branch daily. hydrOXYzine 2020-1 Yes TAKE 1 Univ ers 50 mg 0-22 CAPSULE BY ity of capsule 00:00: MOUTH [place] THREE Medical TIMES Branch DAILY NEEDED FOR ACUTE ANXIETY traZODone 2020-1 Yes TAKE 1 TO Uni vers 100 mg 0-22 2 TABLETS ity of tablet 00:00: BY [facility] EVERY DAY Medical AT BEDTIME Branch DIRECTED NEEDED FOR INSOMNIA divalproex 2020-1 Yes 500mg Take 500 Un tin 500 mg EC 0-22 mg by ity of tablet 00:00: mouth [place] (two) Medical times Branch daily. hydrOXYzine 2020-1 Yes TAKE 1 Univ ers 50 mg 0-22 CAPSULE BY ity of capsule 00:00: MOUTH [place] THREE Medical TIMES Branch DAILY NEEDED FOR ACUTE ANXIETY traZODone 2020-1 Yes TAKE 1 TO Uni vers 100 mg 0-22 2 TABLETS ity of tablet 00:00: BY [facility] EVERY DAY Medical AT BEDTIME Branch DIRECTED NEEDED FOR INSOMNIA divalproex 2020-1 Yes 500mg Take 500 Un tin 500 mg EC 0-22 mg by ity of tablet 00:00: mouth [place] (two) Medical times Branch daily. hydrOXYzine 2020-1 Yes TAKE 1 Univ ers 50 mg 0-22 CAPSULE BY ity of capsule 00:00: [facility] THREE Medical TIMES Branch DAILY NEEDED FOR ACUTE ANXIETY traZODone 2020-1 Yes TAKE 1 TO Uni vers 100 mg 0-22 2 TABLETS ity of tablet 00:00: BY [place] [address] EVERY DAY Medical AT BEDTIME Branch DIRECTED NEEDED FOR INSOMNIA divalproex 2020-1 Yes 500mg Take 500 Un tin 500 mg EC 0-22 mg by ity of tablet 00:00: mouth [address] [place] [address] (two) Medical times Branch daily. hydrOXYzine 2020-1 Yes TAKE 1 Univ ers 50 mg 0-22 CAPSULE BY ity of capsule 00:00: MOUTH [place] THREE Medical TIMES Branch DAILY NEEDED FOR ACUTE ANXIETY traZODone 2020-1 Yes TAKE 1 TO Uni vers 100 mg 0-22 2 TABLETS ity of tablet 00:00: BY MOUTH [place] EVERY DAY Medical AT BEDTIME Branch DIRECTED NEEDED FOR INSOMNIA divalproex 2020-1 Yes 500mg Take 500 Un tin 500 mg EC 0-22 mg by ity of tablet 00:00: mouth [place] (two) Medical times Branch daily. hydrOXYzine 2020- Yes TAKE 1 Univ ers 50 mg 0-22 CAPSULE BY ity of capsule 00:00: MOUTH [place] THREE Medical TIMES Branch DAILY NEEDED FOR ACUTE ANXIETY traZODone 2020- Yes TAKE 1 TO Uni vers 100 mg 0-22 2 TABLETS ity of tablet 00:00: BY MOUTH [place] EVERY DAY Medical AT BEDTIME Branch DIRECTED NEEDED FOR INSOMNIA divalproex 2020- Yes 500mg Take 500 Un tin 500 mg EC 0-22 mg by ity of tablet 00:00: mouth [place] (two) Medical times Branch daily. hydrOXYzine 2019- Yes TAKE 1 Univ ers 50 mg 0-22 CAPSULE BY ity of capsule 00:00: MOUTH [place] THREE Medical TIMES Branch DAILY NEEDED FOR ACUTE ANXIETY traZODone 2019- Yes TAKE 1 TO Uni vers 100 mg 0-22 2 TABLETS ity of tablet 00:00: BY [facility] EVERY DAY Medical AT BEDTIME Branch DIRECTED NEEDED FOR INSOMNIA divalproex 2020- Yes 500mg Take 500 Un tin 500 mg EC 0-22 mg by ity of tablet 00:00: mouth [place] (two) Medical times Branch daily. hydrOXYzine 2019- Yes TAKE 1 Univ ers 50 mg 0-22 CAPSULE BY ity of capsule 00:00: [facility] THREE Medical TIMES Branch DAILY NEEDED FOR ACUTE ANXIETY traZODone 2019- Yes TAKE 1 TO Uni vers 100 mg 0-22 2 TABLETS ity of tablet 00:00: BY [facility] EVERY DAY Medical AT BEDTIME Branch DIRECTED NEEDED FOR INSOMNIA divalproex 2020-1 Yes 500mg Take 500 Un tin 500 mg EC 0-22 mg by ity of tablet 00:00: mouth [address] [place] [address] (two) Medical times Branch daily. hydrOXYzine 2020- Yes TAKE 1 Univ ers 50 mg 0-22 CAPSULE BY ity of capsule 00:00: MOUTH [place] THREE Medical TIMES Branch DAILY NEEDED FOR ACUTE ANXIETY traZODone 2020-1 Yes TAKE 1 TO Uni vers 100 mg 0-22 2 TABLETS ity of tablet 00:00: BY MOUTH [place] EVERY DAY Medical AT BEDTIME Branch DIRECTED NEEDED FOR INSOMNIA divalproex 2020-1 Yes 500mg Take 500 Un tin 500 mg EC 0-22 mg by ity of tablet 00:00: mouth [place] (two) Medical times Branch daily. hydrOXYzine 2020-1 Yes TAKE 1 Univ ers 50 mg 0-22 CAPSULE BY ity of capsule 00:00: MOUTH [place] THREE Medical TIMES Branch DAILY NEEDED FOR ACUTE ANXIETY traZODone 2020-1 Yes TAKE 1 TO Uni vers 100 mg 0-22 2 TABLETS ity of tablet 00:00: BY MOUTH [place] EVERY DAY Medical AT BEDTIME Branch DIRECTED NEEDED FOR INSOMNIA divalproex 2020-1 Yes 500mg Take 500 Un tin 500 mg EC 0-22 mg by ity of tablet 00:00: mouth [place] (two) Medical times Branch daily. hydrOXYzine 2020-1 Yes TAKE 1 Univ ers 50 mg 0-22 CAPSULE BY ity of capsule 00:00: MOUTH [place] THREE Medical TIMES [place] DAILY NEEDED FOR ACUTE ANXIETY traZODone 2020-1 Yes TAKE 1 TO Uni vers 100 mg 0-22 2 TABLETS ity of tablet 00:00: BY MOUTH [place] EVERY DAY Medical AT BEDTIME Branch DIRECTED NEEDED FOR INSOMNIA divalproex 2020-1 Yes 500mg Take 500 Un tin 500 mg EC 0-22 mg by ity of tablet 00:00: mouth [place] (two) Medical times Branch daily. hydrOXYzine 2020-1 Yes TAKE 1 Univ ers 50 mg 0-22 CAPSULE BY ity of capsule 00:00: [facility] THREE Medical TIMES [place] DAILY NEEDED FOR ACUTE ANXIETY traZODone 2020-1 Yes TAKE 1 TO Uni vers 100 mg 0-22 2 TABLETS ity of tablet 00:00: BY [facility] EVERY DAY Medical AT BEDTIME Branch DIRECTED NEEDED FOR INSOMNIA divalproex 2020-1 Yes 500mg Take 500 Un tin 500 mg EC 0-22 mg by ity of tablet 00:00: mouth [address] [place] [address] (two) Medical times Branch daily. hydrOXYzine 2020-1 Yes TAKE 1 Univ ers 50 mg 0-22 CAPSULE BY ity of capsule 00:00: MOUTH [place] THREE Medical TIMES Branch DAILY NEEDED FOR ACUTE ANXIETY traZODone 2020-1 Yes TAKE 1 TO Uni vers 100 mg 0-22 2 TABLETS ity of tablet 00:00: BY MOUTH [place] EVERY DAY Medical AT BEDTIME Branch DIRECTED NEEDED FOR INSOMNIA divalproex 2020- Yes 500mg Take 500 Un tin 500 mg EC 0-22 mg by ity of tablet 00:00: mouth [place] (two) Medical times Branch daily. hydrOXYzine 2020- Yes TAKE 1 Univ ers 50 mg 0-22 CAPSULE BY ity of capsule 00:00: MOUTH [place] THREE Medical TIMES [place] DAILY NEEDED FOR ACUTE ANXIETY traZODone 2020- Yes TAKE 1 TO Uni vers 100 mg 0-22 2 TABLETS ity of tablet 00:00: BY MOUTH [place] EVERY DAY Medical AT BEDTIME Branch DIRECTED NEEDED FOR INSOMNIA divalproex 2020- Yes 500mg Take 500 Un tin 500 mg EC 0-22 mg by ity of tablet 00:00: mouth [place] (two) Medical times [place] daily. hydrOXYzine 2019- Yes TAKE 1 Univ ers 50 mg 0-22 CAPSULE BY ity of capsule 00:00: MOUTH [place] THREE Medical TIMES [place] DAILY NEEDED FOR ACUTE ANXIETY traZODone 2019- Yes TAKE 1 TO Uni vers 100 mg 0-22 2 TABLETS ity of tablet 00:00: BY MOUTH [place] EVERY DAY Medical AT BEDTIME Branch DIRECTED NEEDED FOR INSOMNIA divalproex 2020- Yes 500mg Take 500 Un tin 500 mg EC 0-22 mg by ity of tablet 00:00: mouth [place] (two) Medical times [place] daily. hydrOXYzine 2019- Yes TAKE 1 Univ ers 50 mg 0-22 CAPSULE BY ity of capsule 00:00: MOUTH [place] THREE Medical TIMES [place] DAILY NEEDED FOR ACUTE ANXIETY traZODone 2019- Yes TAKE 1 TO Uni vers 100 mg 0-22 2 TABLETS ity of tablet 00:00: BY MOUTH [place] [address] EVERY DAY Medical AT BEDTIME Branch DIRECTED [...] 13:25 ONCE, 1 [place] 00 :00 dose, [facility] 06/08/20 at Branch 0915, STAT LORazepam 2018- No 2mg 2 mg, Univer s (ATIVAN) 07-17 Oral, ity of tablet 2 mg 00:34: 00:37 [place]CE, 1 [place] 00 :[place] dose, [facility] 07/16/19 at Branch 1945, BOBBI LORazepam 2018- No 2mg 2 mg, Univer s (ATIVAN) 07-16 Oral, ity of tablet 2 mg 20:56: 21:02 [place]CE, 1 [place] :[place] dose, [facility] 07/16/19 at Branch 1600, BOBBI Tylenol [...] ent Clinics No known No Univers medications [facility] No known No Univers medications [facility] No known No Univers medications [facility] Vital Signs Vital Name Observation Time Observation Value Comments Source Systolic blood 2020-09-29 19:53:00 118 mm[Hg] Univer sity [facility] Diastolic blood 2020-09-29 19:53:00 77 mm[Hg] [facility] Heart rate 2020-09-29 19:53:00 79 /min Universi ty [facility] Body height 2020-09-29 19:53:00 166.4 cm Universi ty of [place] [facility] [place] Systolic blood 2020-09-12 20:05:00 136 mm[Hg] Univer sity of pressure [place] [facility] Diastolic blood 2020-09-12 20:05:00 85 mm[Hg] Unive rsity of pressure [facility] Heart rate 2020-09-12 20:05:00 51 /min Universi ty of [facility] Body temperature 2020-09-12 20:05:00 36.67 [place] Univ ersity of [facility] Respiratory rate 2020-09-12 20:05:00 19 /min Univ ersity of [facility] Oxygen saturation in 2020-09-12 20:05:00 100 /min University of Arterial blood by [facility] Pulse oximetry Branch Body height 2020-09-08 15:11:00 165.1 cm Universi ty of [facility] Body weight 2020-09-08 15:11:00 61.2 kg Universi ty of [facility] BMI 2020-09-08 15:11:00 22.45 kg/m2 Universi ty of [facility] Systolic blood 2020-09-06 16:15:00 115 mm[Hg] Univer sity of pressure [facility] Diastolic blood 2020-09-06 16:15:00 80 mm[Hg] Unive rsity of pressure [facility] Heart rate 2020-09-06 16:15:00 69 /min Universi ty of [facility] Body height 2020-09-06 16:15:00 165.1 cm Universi ty of [facility] Body weight 2020-09-06 16:15:00 61.236 kg Universi ty of [place] [facility] [place] BMI 2020-09-06 16:15:00 22.47 kg/m2 Universi ty of [facility] Systolic blood 2020-06-08 12:56:00 120 mm[Hg] Univer sity of pressure [facility] Diastolic blood 2020-06-08 12:56:00 79 mm[Hg] Unive rsity of pressure [facility] Heart rate 2020-06-08 12:56:00 76 /min Universi ty of [facility] Body temperature 2020-06-08 12:56:00 36.67 [place] Univ ersity of [facility] Respiratory rate 2020-06-08 12:56:00 16 /min Univ ersity of [facility] Body weight 2020-06-08 12:56:00 68.04 kg Universi ty of [place] [facility] BMI 2020-06-08 12:56:00 24.96 kg/m2 Universi ty of [place] [facility] Oxygen saturation in 2020-06-08 12:56:00 98 /min University of Arterial blood by [facility] Pulse oximetry Branch Systolic blood 2020-04-06 16:00:00 126 mm[Hg] Univer sity of pressure [facility] Branch Diastolic blood 2020-04-06 16:00:00 71 mm[Hg] Unive rsity of pressure [place] [facility] Heart rate 2020-04-06 16:00:00 74 /min Universi ty of [place] [facility] Body temperature 2020-04-06 16:00:00 37.22 [place] Univ ersity of [facility] Branch Respiratory rate 2020-04-06 16:00:00 20 /min Univ ersity of [facility] Body height 2020-04-06 16:00:00 165.1 cm Universi ty of [place] [facility] Body weight 2020-04-06 16:00:00 68.04 kg Universi ty of [place] [facility] BMI 2020-04-06 16:00:00 24.96 kg/m2 Universi ty of [place] [facility] Oxygen saturation in 2020-04-06 16:00:00 100 /min University of Arterial blood by [facility] Pulse oximetry Branch Systolic blood 2019-07-17 00:00:00 132 mm[Hg] Univer sity of pressure [facility] Branch Diastolic blood 2019-07-17 00:00:00 76 mm[Hg] Unive rsity of pressure [facility] Branch Heart rate 2019-07-17 00:00:00 66 /min Universi ty of [place] [facility] Respiratory rate 2019-07-17 00:00:00 18 /min Univ ersity of [facility] Branch Oxygen saturation in 2019-07-17 00:00:00 98 /min University of Arterial blood by [facility] Pulse oximetry Branch Body temperature 2019-07-16 20:03:00 36.78 [place] Univ ersity of [facility] Body weight 2019-07-16 20:02:00 79.379 kg Universi ty of [place] [facility] Procedures Procedure Date / Time Performing Clinician Source Performed NOTICE OF PRIVACY 2021-07-02 19:00:14 Doctor Unassigned, No Univ [facility] PRACTICES Name Medical Branch CONSENT/REFUSAL FOR 2021-07-02 18:59:56 [facility] Name Medical Branch XR FINGERS 2 VW RIGHT 2020-09-29 18:46:22 Seth Roca [facility] [place] TIME OR 2020-09-12 19:39:39 Seth Roca [facility] (NON-REPORTABLE) Medical [place] TIME OR 2020-09-12 19:20:07 Seth Roca [facility] (NON-REPORTABLE) Medical [place] DAY SURGERY - ADC 2020-09-12 06:01:00 [facility] CHEST 2 VW 2020-09-09 19:40:29 Seth Roca [facility] CONSENT/REFUSAL FOR 2020-09-09 19:21:16 Doctor Unassigned, No [facility] DIAGNOSIS AND TREATMENT [facility] ASSIGNMENT OF BENEFITS 2020-09-09 19:18:53 Doctor Unassigned, No [facility] DSU PRE-OP 2020-09-08 05:01:00 Doctor Unassigned, No [facility] ASSIGNMENT OF BENEFITS 2020-09-06 16:09:16 Doctor Unassigned, No [facility] POCT TEST 2020-06-08 13:22:00 Jaret Webb [facility] LIPASE 2020-06-08 13:22:00 Tracey [facility] HEPATIC FUNCTION PANEL 2020-06-08 13:22:00 Jaret Webb [facility] ([id number]) (ALB,T.PRO,BILI [facility] Branch T,BU/BC,ALT,AST,ALK PHOS) BASIC METABOLIC PANEL 2020-06-08 13:22:00 [facility] (NA, K, CL, CO2, Medical Branch GLUCOSE, BUN, CREATININE, CA) CBC WITH DIFF 2020-06-08 13:22:00 Tracey [facility] URINALYSIS 2020-06-08 13:22:00 Tracey [facility] RAPID STREP SCREEN FOR 2020-04-06 16:23:00 Sun aCstro [facility] GROUP A [facility] NOTICE OF PRIVACY 2020-04-06 15:48:09 Doctor Unassigned, No [facility] PRACTICES Name Medical Branch CONSENT/REFUSAL FOR 2020-04-06 15:47:58 Doctor Unassigned, No [facility]AT[facility] Name Medical Branch FREE T4 2019-07-16 20:51:00 Matthieu Jimbo [facility] THYROID STIMULATING 2019-07-16 20:51:00 [facility] HEPATIC FUNCTION PANEL 2019-07-16 20:51:00 Jimbo Sommers [facility] ([id number]) (ALB,T.PRO,BILI [facility] Branch T,BU/BC,ALT,AST,ALK PHOS) BASIC METABOLIC PANEL 2019-07-16 20:51:00 [facility] (NA, K, CL, CO2, Medical Branch GLUCOSE, BUN, CREATININE, CA) SALICYLATE 2019-07-16 20:51:00 Matthieu [facility] ETHANOL 2019-07-16 20:51:00 Matthieu [facility] CBC WITH DIFFERENTIAL 2019-07-16 20:51:00 Matthieu Jimbo [facility] URINALYSIS 2019-07-16 20:51:00 [facility] ADC / LCC - DRUG SCREEN 2019-07-16 20:51:00 Jimbo Sommers [facility] TRIAGE [facility] POCT TEST 2019-07-16 20:37:00 Jimbo Sommers [facility] EKG-12 LEAD 2019-07-16 20:28:43 Matthieu Jimbo [facility] NOTICE OF PRIVACY 2019-07-16 19:39:12 Doctor Unassigned, No [facility] PRACTICES Name Medical Branch CONSENT/REFUSAL FOR 2019-07-16 19:38:59 Doctor Unassigned, No [facility] TREATMENT Name Medical Branch Encounters Start End Encounter Admission Attending Care Care Encounter Source Date/Time Date/Time Type Type Clinicians Facility Department ID 2021-09-[address] [facility] [id number] Univers 17:13:34 [facility] 2021-09-09 Outpatient Anuj ROCA [facility] PADMINI [id number] Univers 01:42:20 SETH ity of [facility] 2021-07-02 2021-07-02 Emergency [facility] [id number] Univers 14:21:00 15:17:00 [place] 350.1.13.10 i ty of [place] 4.2.7.2.686 [facility] [phone] [facility] [address] [place] 2021-07-02 2021-07-02 Orders Doctor LUCÍA 1.2.840.114 [id number] Univers 00:00:00 00:00:00 Only Unassigned, CATIE 350.1.13.10 ity of [place] [facility] 4.2.7.2.686 Tim as [phone] [facility] [address] [place] 2021-07-02 2021-07-02 Orders Doctor LUCÍA 1.2.840.114 [id number] 00:00:00 00:00:00 Only Unassigned, CATIE 350.1.13.10 [place] [facility] 4.2.7.2.686 [id number] 009 2020-10-25 2020-10-25 Telephone [facility] 1.2.232.040 [id number] Univers 00:00:00 00:00:00 [facility] 350.1.13.10 it y of Surgical 4.2.7.2.686 Tim as Specialti [phone] Hi dical [address] 2020-10-25 2020-10-25 [place] [facility] 1.2.304.976 [id number] 00:00:00 00:00:00 [facility] 350.1.13.10 Surgical 4.2.7.2.686 Specialti [phone] es [address] [place] [address] 2020-10-17 2020-10-17 [facility] [id number] -20 Univers 14:00:00 14:00:00 [facility] 2020-10-17 2020-10-17 [facility]patient [facility] [id number] Univers 14:00:00 14:00:00 ANALI [facility] 2020-10-14 2020-10-14 Telephone [facility] 1.2.392.992 [id number] Univers 00:00:00 00:00:00 Anali S PRIMARY 350.1.13.10 it y [place] [phone] Hi dical [address] [place] 2020-10-14 2020-10-14 Nurse LUCÍA Saleem 1.2.840.114 [id number] Univers 00:00:00 00:00:00 Triage Monie CATIE 350.1.13.10 it y of HOSPITAL 4.2.7.2.686 Tim as [id number] [address] 2020-10-14 2020-10-14 [facility] 1.2.469.573 [id number] 00:00:00 00:00:00 Anali S PRIMARY 350.1.13.10 CARE 4.2.7.2.686 PAVILLION [id number] [facility] 2020-10-14 2020-10-14 Nurse LUCÍA Saleem 1.2.840.114 [id number] 00:00:00 00:00:00 Triage Monie CATIE 350.1.13.10 HOSPITAL 4.2.7.2.686 [id number] 2020-10-13 2020-10-13 Outpatient [facility] [id number] -[id number] Univers 10:30:00 10:30:00 ANALI [facility] 2020-10-13 2020-10-13 Outpatient [facility] [id number] Univers 10:30:00 10:30:00 [facility] 2020-10-04 2020-10-04 [facility] 1.2.840.114 [id number] Univers 00:00:00 00:00:00 Assessment Anali S Health 350.1.13.10 ity of Surgical 4.2.7.2.686 Tim as Specialti [phone] Hi dical es [address] [facility] 2020-10-04 2020-10-04 [facility] 1.2.840.114 [id number] 00:00:00 00:00:00 Assessment Anali S Health 350.1.13.10 Surgical 4.2.7.2.686 Specialti [id number] [address] 2020-10-03 2020-10-03 Outpatient R [facility] [id number] -20 Univers 14:00:00 14:00:00 ANALI [id number] ity [facility] 2020-10-03 2020-10-03 Outpatient Anuj BOYKIN [facility] [id number] Univers 14:00:00 14:00:00 [facility] 2020-09-30 2020-09-30 Outpatient Anuj BOYKIN [facility] [id number] -20 Univers 08:00:00 08:00:00 ANALI ity [facility] 2020-09-30 2020-09-30 Outpatient [facility] [id number] Univers 08:00:00 08:00:00 [facility] 2020-09-30 2020-09-30 Lead Web Developer Augustine, Veronica Lab Main [facility] 1.2.8 40.114 [id number] Univers 07:42:57 07:57:57 Visit Seth Roca 350.1.13.10 [place] [facility] [id number] Hi dical nal 353 [facility] 2020-09-30 2020-09-30 Telephone [facility] [id number] [id number] Univers 00:00:00 00:00:00 [facility] Health 350.1.13.10 it y of Surgical 4.2.7.2.686 Tim as Specialti [phone] Hi dical es [address] [facility] 2020-09-30 2020-09-30 Telephone [facility] 1.2.346.849 [id number] 00:00:00 00:00:00 [facility] Health 350.1.13.10 Surgical 4.2.7.2.686 Specialti [id number] [address] 2020-09-29 2020-09-29 [facility] 1.2.840.114 [id number] Univers 12:28:56 23:59:00 Encounter Seth Gil 350.1.13.10 [place] [phone] [facility] [address] [place] [address] 2020-09-29 2020-09-29 Office [facility] 1.2.840.114 [id number] Univers 13:51:51 15:05:33 Visit Anali TASCET 350.1.13.10 it y of Surgical 4.2.7.2.686 Tim as Specialti [id number] Hi dical es [address] [facility] 2020-09-29 2020-09-29 Outpatient Anuj LUCRETIA [facility] [id number] -20 Univers 13:45:00 13:45:00 ANALI [id number] ity [facility] 2020-09-29 2020-09-29 Outpatient [facility] [id number] Univers 13:45:00 13:45:00 [facility] 2020-09-29 2020-09-29 Telephone [facility] [id number] Univers 00:00:00 00:00:00 Anali TASCET 350.1.13.10 it y of Surgical 4.2.7.2.686 Tim as Specialti [id number] Hi dical es [address] [facility] 2020-09-28 2020-09-28 Telephone [facility] 1.2.840.114 [id number] Univers 00:00:00 00:00:00 [facility] TASCET 350.1.13.10 it y of Surgical 4.2.7.2.686 Tim as Specialti [phone] Hi dical es [address] [facility] 2020-09-28 2020-09-28 Telephone [facility] 1.2.840.114 [id number] Univers 00:00:00 00:00:00 Seth Health 350.1.13.10 it y of Surgical 4.2.7.2.686 Tim as Specialti [id number] Hi dical es [address] [facility] 2020-09-27 2020-09-27 Telephone [facility] 1.2.711.761 [id number] Univers 00:00:00 00:00:00 Anali Leon [facility] 350.1.13.10 it y of Surgical 4.2.7.2.686 Tim as Specialti [phone] Hi dical es [address] [facility] 2020-09-26 2020-09-26 [facility]patient [facility] [id number] -20 Univers 16:00:00 16:00:00 ANALI [id number] ity [facility] 2020-09-26 2020-09-26 Outpatient [facility] [id number] Univers 16:00:00 16:00:00 ANALI ity [facility] 2020-09-26 2020-09-26 Telephone [facility] 1.2.559.857 [id number] Univers 00:00:00 00:00:00 Anali Leon Health 350.1.13.10 it y of Surgical 4.2.7.2.686 Tim as Specialti [phone] Hi dical es [address] [facility] 2020-09-23 2020-09-23 Outpatient [facility] [id number] 3P-20 Univers 10:15:00 10:15:00 SETH [id number] ity of [facility] 2020-09-23 2020-09-23 [facility]patient [facility] [id number] Univers 10:15:00 10:15:00 SETH itrebekah [facility] 2020-09-19 2020-09-[address] [facility] 1.2.840.114 [id number] Univers 00:00:00 00:00:00 Seth L [facility] 350.1.13.10 it y of Surgical 4.2.7.2.686 Tim as Specialti [id number] Hi dical es [address] [facility] 2020-09-12 2020-09-12 [facility] 1.2.840.114 [id number] Univers 08:14:00 14:20:00 Encounter Seth [place] 350.1.13.10 [place] [id number] [facility] [address] [place] 2020-09-12 2020-09-12 Orders Doctor LUCÍA 1.2.840.114 [id number] Univers 00:00:00 00:00:00 Only Unassigned, CATIE 350.1.13.10 [place] [facility] 4.2.7.2.686 Tim as [id number] [facility] [address] [place] 2020-09-09 2020-09-09 [facility] 1.2.840.114 [id number] Univers 14:17:36 23:59:00 Encounter Seth Pac[place] 350.1.13.10 ity of [place] 4.2.7.2.686 [facility] [id number] [facility] [address] [place] 2020-09-09 2020-09-09 Lead Web Developer Augustine, Adc Lab Main [place] 1.2.8 40.114 [id number] Univers 14:16:24 14:31:24 Visit Seth Roca Shun Gil 350.1.13.10 ity [place] 4.2.7.2.686 [facility] [facility] Professio [phone] Hi dical nal 353 [facility] 2020-09-09 2020-09-09 Laboratory Only, Adc Test [facility] 1.2.840. 114 [id number] Univers 14:15:01 14:30:01 Only Venkat Stark Louise 350.1.13.10 ity of [place] 4.2.7.2.686 [facility] [id number] [facility] [address] [place] 2020-09-09 2020-09-09 Outpatient R [facility] [id number] -20 Univers 14:15:00 14:15:00 [id number] ity of [facility] 2020-09-09 2020-09-09 [facility] [id number] Univers 14:00:00 14:00:00 SETH ity of [facility] 2020-09-08 2020-09-08 Orders Doctor LUCÍA 1.2.840.114 [id number] Univers 00:00:00 00:00:00 Only Unassigned, CATIE 350.1.13.10 [place] [facility] 4.2.7.2.686 Tim as [phone] [facility] [address] [place] 2020-09-07 2020-09-07 Prep For Chanelle [facility] 1.2.840.114 [id number] Univers 00:00:00 00:00:00 Surgery Seth L Health 350.1.13.10 it y of Surgical 4.2.7.2.686 Tim as Specialti [id number] Me dical es [address] [facility] 2020-09-06 2020-09-06 Office Lucretia [facility] 1.2.840.114 [id number] Univers 11:10:09 11:25:09 Visit Anali Guthrie [facility] 350.1.13.10 it y of Surgical 4.2.7.2.686 Tim as Specialti [id number] Hi dical [address] [facility] 2020-09-06 2020-09-06 Outpatient R LUCRETIA [facility] [id number] Univers 10:00:00 10:00:00 ANALI rebekah [facility] 2020-09-06 2020-09-06 Orders Doctor LUCÍA 1.2.840.114 [id number] Univers 00:00:00 00:00:00 Only Unassigned, CATIE 350.1.13.10 [place] [facility] 4.2.7.2.686 Tim as [id number] [facility] [address] [place] 2020-06-08 2020-06-08 Emergency Tracey, TRAUMA 1.2.596.713 [id number] Univers 07:57:26 09:17:00 [facility] 350.1.13.10 it [place] [id number] [facility] [address] [place] 2020-06-08 2020-06-08 Emergency X TRACEY [facility] ERT [id number] Univers 07:57:26 07:57:26 JARET [facility] 2020-04-06 2020-04-06 Emergency [facility] 1.2.840.114 [id number] Univers 11:02:11 12:59:00 Sun Gil 350.1.13.10 i ty [place]2.[place].2.[place] [id number] [facility] [address] [place] 2020-04-06 2020-04-06 Emergency X [facility] ERT [id number] Univers 10:49:00 10:49:00 ity of [facility] 2020-04-06 2020-04-06 Orders Doctor CASTREJON 1.2.840.114 [id number] Univers 00:00:00 00:00:00 Only Unassigned, CATIE 350.1.13.10 [place] [facility] [place] [facility] 4.2.7.2.686 Tim as [id number] [address] 2019-07-16 2019-07-16 Emergency [facility] 1.2.448.053 [id number] Univers 15:08:41 20:56:00 Jimbo [place] 350.1.13.10 i [facility] 4.2.7.2.686 [facility] [phone] [place] [address] Branch 2019-05-20 2019-05-20 Out[facility] [id number] [facility] [address] 16:15:00 16:15:00 [facility] 2019-05-07 2019-05-07 [facility] [id number] 15:30:00 15:30:00 t [facility] ent [facility] 2019-05-07 2019-05-07 [facility] [id number] 14:28:00 14:28:00 t [facility] ent [facility] 2019-05-06 2019-05-06 [facility] [id number] 11:28:00 11:28:00 t [facility] ent [facility] 2019-05-05 2019-05-05 [facility] [id number] 14:00:00 14:00:00 t [facility] ent [facility] 2019-04-28 2019-04-28 [facility] [id number] 09:30:00 09:30:00 t [facility] ent [facility] 2019-04-24 2019-04-24 [facility] [id number] 10:53:00 10:53:00 t [facility] ent [facility] 2019-04-24 2019-04-24 [facility] [id number] 10:06:00 10:06:00 t [facility] ent Clinics 2019-01-12 2019-01-12 [facility] 10:[facility] 10:00:00 [facility] ent Clinics 2013-04-14 2013-04-14 Emergency E ESTEE [facility] ECC [id number] Jamilahil 00:19:00 03:12:00 [facility] Results Test Description Test Test Results Result Source Time Comments Comments XR FINGERS 2 VW 2020-09- HISTORY: ?Pain. Univ ersity of RIGHT 19 FINDINGS: [place] Hi dical 18:49:48 lateral views of right Br [...] rsity of (NON-REPORTABLE) 02 require a [facility] 19:40:57 diagnostic report. Branch FL TIME OR 2020-09- These images do not Unive rsity of (NON-REPORTABLE) 02 require a Radiology [facility] 19:23:57 diagnostic report. Branch XR CHEST [...] normal limits. ?No acute bonyabnormalities are seen. [facility], Radiant Results Inft User - 09/09/2020 [...] Interpretation Comme nts NA (test code = 7792415457) 136 mmol/L 135-145 K (test code = 6347121793) 4.4 mmol/L 3.5-5 CL (test code = 8563176182) 106 mmol/L 98-108 CO2 TOTAL (test code = 23 mmol/L 23-31 3300914686) AGAP (test code = 7557171838) 2-16 BUN (test code = 5818244818) 14 mg/dL 7-23 GLUCOSE (test code = 4997086415) 91 mg/dL 70-110 CREATININE (test code = 0.59 mg/dL 0.5-1.04 1334448143) CALCIUM (test code = 9598161314) 9.1 mg/dL 8.6-10.6 eGFR Calculation (Non- mL/min/1.73m2 Gambian) (test code = 3822356072) eGFR Calculation ( mL/min/1.73m2 [place]ian) (test code = 3423360920) LUCY (test code = LUCY) Association of [...] or urine or abnormalities in imaging tests). [facility] (ALB, T.PRO, BILI T, BU/BC, ALT, AST, ALK PHOS)2020-06-08 13:47:00 Test Item Value Reference Range Interpretation Comments TOTAL BILI (test code = 4195883797) 0.3 mg/dL 0.1-1.1 BILI UNCON (test code = 5885886475) 0.5 mg/dL 0.1-1.1 BILI CONJ (test code = 2104255822) 0.0 mg/dL 0-0.3 T PROTEIN (test code = 2881266599) 7.1 g/dL 6.3-8.2 ALBUMIN (test code = 6772874116) 4.2 g/dL 3.5-5 ALK PHOS (test code = 1123808248) 53 U/L 34-122 ALTv (test code = 1742-6) 22 U/L 5-35 AST(SGOT) (test code = 9107168066) 32 U/L 13-40 Lab Interpretation (test code = Normal 34439-2) [facility] [id number] 13:47:00 Test Item Value Reference Range Interpretation Comments LIPASE (test code = 7367782736) 142 U/L 0-220 Lab Interpretation (test code = Normal 33628-3) [facility] HospitalUrinalysis2020-07-29 13:47:00 Test Item Value Reference Range Interpretation Comments APPEARANCE (test code = Clear Clear 8082610764) COLOR (test code = Straw Yellow A 4383246742) PH (test code = 4.8-8.0 4758129401) SP GRAVITY (test code = 1.003-1.030 L 4061244621) GLU U QUAL (test code = Normal Normal 9811046033) BLOOD (test code = Negative Negative 2985914607) KETONES (test code = Negative Negative 2841347816) PROTEIN (test code = Negative Negative 2887-8) UROBILIN (test code = Normal Normal 7464452245) BILIRUBIN (test code = Negative Negative 6077586296) NITRITE (test code = Negative Negative 3660451297) LEUK MAYNOR (test code = Negative Negative 3880629047) RBC/HPF (test code = <1 See_Comment [Autom ated message] 1388556911) The system [employer] generated this result transmitted ref erence range: 0 - 3 HP F. The reference range was not used to int erpret this result as normal/abnormal . WBC/HPF (test code = <1 See_Comment [Autom ated message] 2836698821) The system [employer] generated this result transmitted ref erence range: 0 - 5 HP F. The reference range was not used to int erpret this result as normal/abnormal . BACTERIA (test code = Negative Negative 1442803909) SQ EPITH (test code = <1 See_Comment [Auto mated message] 6887132855) The system [employer] generated this result transmitted ref erence range: <=2 HPF. The reference range was not used to int erpret this result as normal/abnormal . Lab Interpretation (test Abnormal code = 77343-3) [facility] with [id number] 13:37:00 Test Item Value Reference Range Interpretation Comments WBC (test code = See_Comment [Automated 8090-2) message] The sy stem which generated this result transmitted reference range : 4.30 - 11.10 10*3/?L. The reference range was not used to interpret this result as normal/abnormal . RBC (test code = See_Comment [Automated 089-8) message] The sy stem which generated this [...] RDW-SD (test code = 42.9 fL 39-49.9 61841-7) RDW-CV (test code = 16.6 % 12-15.5 H 788-0) PLT (test code = See_Comment [Automated 777-3) message] The sy stem which generated this result transmitted reference range : 166 - 358 10*3/ ?L. The reference r shantanu was not used to interpret this result as normal/abnormal . MPV (test code = 9.3 fL 9.5-12.9 L 03651-4) NRBC/100 WBC (test See_Comment [Automat ed code = 3574892410) message] The system which generated this result transmitted reference range : 0.0 - 10.0 /100 WBCs. The refer ence range was not u sed to interpret th is result as normal/abnormal . NRBC x10^3 (test code <0.01 See_Comment [Auto mated = 3844791645) message] The s ystem which generated this result transmitted reference range : 10*3/?L. The reference range was not used to interpret this result as normal/abnormal . GRAN MAT (NEUT) % 55.7 % (test code = 770-8) IMM GRAN % (test code 0.20 % = 3960624839) LYMPH % (test code = 30.8 % 736-9) MONO % (test code = 10.2 % 5905-5) EOS % (test code = 2.1 % 713-8) BASO % (test code = 1.0 % 706-2) GRAN MAT x10^3(ANC) 3.40 10*3/uL 1.88-7.09 (test code = 7915896006) IMM GRAN x10^3 (test <0.03 0-0.06 code = 3602864899) LYMPH x10^3 (test code 1.88 10*3/uL 1.32-3.29 = 731-0) MONO x10^3 (test code 0.62 10*3/uL 0.33-0.92 = 742-7) EOS x10^3 (test code = 0.13 10*3/uL 0.03-0.39 711-2) BASO x10^3 (test code 0.06 10*3/uL 0.01-0.07 = 704-7) Lab Interpretation Abnormal (test code = 89523-0) [facility] [id number] 13:22:00 Test Item Value Reference Range Interpretation Comments POCT PREG (test code = 1605) NEGATIVE On board controls acceptable with PRESENT C Line (test code = 3574) POCT PREG LOT # (test code = 3575) [id number] POCT PREG TEST DATE (test 08/10/2021 code = 3576) Lab Interpretation (test code = Normal 19185-2) [facility] STREP SCREEN FOR GROUP [id number] 16:56:00 Test Item Value Reference Range Interpretation Comments Streptococcus pyogenes (group A) Negative Negative antigen (test code = 04904-5) Lab Interpretation (test code = Normal 11411-6) [facility]inalysis2019-[facility]-05 22:17:00 Test Item Value Reference Range Interpretation Comments APPEARANCE (test code = Clear Clear 8405335034) COLOR (test code = Yellow Yellow 6436845036) PH (test code = 4.8-8.0 6401332890) SP GRAVITY (test code = 1.003-1.030 7823871877) GLU U QUAL (test code = Negative Negative 4303588088) BLOOD (test code = Trace Negative A 2765837552) KETONES (test code = Trace Negative A 8532426934) PROTEIN (test code = Negative Negative 2887-8) UROBILIN (test code = 0.2 mg/dL See_Comment [Auto mated message] 4524098522) The system [employer] generated this result transmit an reference range : 0-1.0 mg/dL. Th e reference range was not used to interpret this result as normal/abnormal . BILIRUBIN (test code = Small Negative A 0690799555) NITRITE (test code = Negative Negative 2494518854) LEUK MAYNOR (test code = Negative Negative 0956949709) RBC/HPF (test code = See_Comment [Autom ated message] 5401886083) The system [employer] generated this result transmit an reference range : 0 - 3 HPF. The refe rence range was not u sed to interpret th is result as normal/abnormal . WBC/HPF (test code = See_Comment [Autom ated message] 4537658842) The system [employer] generated this result transmit an reference range : 0 - 5 HPF. The refe rence range was not u sed to interpret th is result as normal/abnormal . BACTERIA (test code = Negative Negative 2208153210) AMORPHOUS (test code = Few HPF 9483899502) SQ EPITH (test code = HPF 2575110230) Ictotest (test code = Negative 7461560972) Lab Interpretation (test Abnormal code = 46102-0) [facility] [id number] 22:15:00 Test Item Value Reference Range Interpretation Comments TSH (test code = See_Comment [Automated message] 6878512308) The system [employer] generated this result transmitted ref erence range: 0.45 - 4 .70 mIU/L. The refe rence range was not u sed to interpret this result as normal/abnor mal. Lab Interpretation (test Normal code = 30819-6) [facility] [id number] 22:01:00 Test Item Value Reference Range Interpretation Comments FREE T4 (test code = 9840064267) 1.34 ng/dL 0.78-2.2 Lab Interpretation (test code = Normal 88883-7) [facility] / [facility] - DRUG SCREEN [id number] 21:59:00 Test Item Value Reference Range Interpretation Comments BENZO U (test code = Presumptive Positive Negative A 1163206029) ILEANA U (test code = Negative Negative 1627269925) AMPHET (test code = Negative Negative 0259136381) THC (test code = Negative Negative 0652454088) METHADONE (test code = Negative Negative 4401075657) Meth U (test code = Negative Negative 3518273499) OPIATES (test code = Negative Negative 5631412191) Cocaine Metabolite (test Presumptive Positive Negative A code = 3533667067) PROPOXY (test code = Negative Negative 6242907251) Tric U (test code = Negative Negative 9554708824) PCP (test code = Negative Negative 8997129085) OXYCOD (test code = Negative Negative 1484770764) LUCY (test code = LUCY) Urine Drug [...] testing). Lab Interpretation (test Abnormal code = 97503-0) [facility]54:00 Test Item Value Reference Range Interpretation Comments ALCOHOL (test code = <10 mg/dL 3583886959) LUCY (test code = LUCY) <10 Teiojtck33-215 Toxic>100 Depression of ACCOUNTS PAYABLE LEAD>400 Fatalities Reported [facility] 21:54:00 Test Item Value Reference Range Interpretation Comments SALICYLATE (test code <10 mg/L = 3360540064) LUCY (test code = LUCY) Therapeutic Range:? Analgesic and Antipyretic Use? 20-100 mg/L? Anti-Inflammatory Use? 100-250 mg/LToxic Range:? Greater than 300 mg/L [facility] 21:54:00 Test Item Value Reference Range Interpretation Comments ACETAMINOP (test code = <10.0 10-30 L 7208075967) LUCY (test code = LUCY) Toxic: Greater than 200 ug/mL @ 4 hour post ingestion or greater than 50 ug/mL @ 12 hour post ingestion Lab Interpretation (test Abnormal code = 29525-0) [facility] (ALB, T.PRO, BILI T, BU/BC, ALT, AST, ALK PHOS)2019-07-16 21:43:00 Test Item Value Reference Range Interpretation Comments TOTAL BILI (test code = 4573633945) 0.2 mg/dL 0.1-1.1 BILI UNCON (test code = 3797571148) 0.2 mg/dL 0.1-1.1 BILI CONJ (test code = 3842674764) 0.0 mg/dL 0-0.3 T PROTEIN (test code = 9241579861) 7.2 g/dL 6.3-8.2 ALBUMIN (test code = 3505237979) 4.4 g/dL 3.5-5 ALK PHOS (test code = 9520765343) 54 U/L 34-122 ALT(SGPT) (test code = 0846473186) 26 U/L 9-51 AST(SGOT) (test code = 6847983249) 25 U/L 13-40 Lab Interpretation (test code = Normal 95178-5) [facility] (NA, K, CL, CO2, GLUCOSE, BUN, CREATININE, CA)2019-07-16 21:42:00 Test Item Value Reference Range Interpretation Comments NA (test code = 148 mmol/L 135-145 H 6472359541) K (test code = 3.4 mmol/L 3.5-5 L 7572866157) CL (test code = 113 mmol/L 98-108 H 9763635741) CO2 TOTAL (test code = 25 mmol/L 23-31 7864007593) AGAP (test code = 2-16 7268652690) BUN (test code = 11 mg/dL 7-23 9124302749) GLUCOSE (test code = 98 mg/dL 70-110 8603784250) CREATININE (test code = 0.78 mg/dL 0.5-1.04 6579793974) CALCIUM (test code = 9.2 mg/dL 8.6-10.6 9909083137) eGFR Calculation mL/min/1.73m2 (Non-) (test code = 4755980544) eGFR Calculation mL/min/1.73m2 () (test code = 1584399811) LUCY (test code = LUCY) Association of [...] tests). Lab Interpretation Abnormal (test code = 58049-5) [facility] WITH [id number] 21:24:00 Test Item Value Reference Range Interpretation Comments WBC (test code = See_Comment L [Automated 0015-2) message] The sy stem which generated this result transmitted reference range : 4.30 - 11.10 10*3/?L. The reference range was not used to interpret this result as normal/abnormal . RBC (test code = See_Comment [Automated 456-8) message] The sy stem which generated this [...] (test code = 51.6 fL 39-49.9 H 57383-6) RDW-CV (test code = 20.4 % 12-15.5 H 788-0) PLT (test code = See_Comment [Automated 777-3) message] The sy stem which generated this result transmitted reference range : 166 - 358 10*3/ ?L. The reference r shantanu was not used to interpret this result as normal/abnormal . MPV (test code = 9.2 fL 9.5-12.9 L 07719-0) NRBC/100 WBC (test See_Comment [Automat ed code = 7826482500) message] The system which generated this result transmitted reference range : 0.0 - 10.0 /100 WBCs. The refer ence range was not u sed to interpret th is result as normal/abnormal . NRBC x10^3 (test code <0.01 See_Comment [Auto mated = 2366520300) message] The s ystem which generated this result transmitted reference range : 10*3/?L. The reference range was not used to interpret this result as normal/abnormal . GRAN MAT (NEUT) % 58.7 % (test code = 770-8) IMM GRAN % (test code 0.30 % = 7070854557) LYMPH % (test code = 24.1 % 736-9) MONO % (test code = 15.5 % 5905-5) EOS % (test code = 0.8 % 713-8) BASO % (test code = 0.6 % 706-2) GRAN MAT x10^3(ANC) 2.12 10*3/uL 1.88-7.09 (test code = 4579531902) IMM GRAN x10^3 (test <0.03 0-0.06 code = 7064584899) LYMPH x10^3 (test code 0.87 10*3/uL 1.32-3.29 L = 731-0) MONO x10^3 (test code 0.56 10*3/uL 0.33-0.92 = 742-7) EOS x10^3 (test code = 0.03 10*3/uL 0.03-0.39 711-2) BASO x10^3 (test code <0.03 0.01-0.07 = 704-7) Lab Interpretation Abnormal (test code = 73463-5) [facility], [id number] 20:37:00 Test Item Value Reference Range Interpretation Comments POCT PREG (test code = 1605) negative On board controls acceptable with present C Line (test code = 3574) POCT PREG LOT # (test code = 3575) [id number] POCT PREG TEST DATE (test 11/10/2020 code = 3576) Lab Interpretation (test code = Normal 55047-1) [facility]"
[2021-12-02] MEDS ORDERED: HYDROCODONE/APAP 5/325 MG TAB ONE (15:42)
--- NOTE | 2021-12-02 16:35 | RAD REPORT ---
EXAM DESCRIPTION: Ed Single View12/02/2021 4:03 pm CLINICAL HISTORY: Rib pain COMPARISON: 2019 FINDINGS: A few areas of subsegmental atelectasis are present within the lung bases. Upper lobes appear clear. Heart is normal size. A significant pleural effusion is not present. A displaced rib fracture is not seen.
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
[2021-12-02 20:08] VITALS: TEMP 98.6
[2021-12-02 20:10] VITALS: BP 133/72; O2SAT 100
== END 2021-12-02 17:46 | disposition home or self-care (01) ==
LOC: ER 15:10
DX: S20.212A Contusion of left front wall of thorax, initial encounter (principal); S63.591A Other specified sprain of right wrist, initial encounter; V49.50XA Passenger injured in collision with unspecified motor vehicles in traffic accident, initial encounter; F20.9 Schizophrenia, unspecified; F17.210 Nicotine dependence, cigarettes, uncomplicated; Z88.8 Allergy status to other drugs, medicaments and biological substances
CPT/HCPCS: 71045; 99283

== ENCOUNTER 2021-12-31 10:59 | Emergency (ER) | payer OTHER ==
--- OUTSIDE RECORDS SUMMARY | 2021-12-31 11:05 | XMS REPORT | Continuity of Care Document ---
:1975 Author Organization Formerly [facility] t Address [address] [place] [address] Care Team Providers Name Role Phone Shun ROCA Attending Clinician Unavailable Doctor Unassigned, Name Attending Clinician Unavailable Lucretia MELENDEZ, S Attending Clinician Edward BOYKIN Attending Clinician Unavailable Stiven RYDER Attending Clinician Unavailable Pob, Lab Main Attending Clinician Unavailable Shun Roca MD Attending Clinician Only, Test Attending Clinician Unavailable Lincoln PELLETIER Attending Clinician Tracey PELLETIER Attending Clinician TRACEY Attending Clinician Unavailable Matthew HILLMAN Attending Clinician Matthieu PELLETIER Attending Clinician DR Haydee FONTANEZ Attending Clinician Unavailable Shun ROCA Admitting Clinician Unavailable Shun Roca MD Admitting Clinician DR Haydee FONTANEZ Admitting Clinician Unavailable Payers Payer Name Policy Type Policy Number Effective Date Expiration Date Edward dubois [facility] [id number] 2018 00:00:00 PLUS Problems Condition Condition Condition [...] encounter automatic ally from request for surgery [id number] Severe Severe Problem Active [facility] Current Current Problem Active [facility] moderate moderate [facility] 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 Bipolar Bipolar Problem Active [facility] affective [...] Closed Problem Active [facility] nondisplac nondisplac [facility] fracture fracture l of lateral of lateral Ou tpati malleolus malleolus ent of left of left Clinics fibula fibula with with routine routine healing healing Left Left Problem Active [facility] sciatic sciatic [facility] nerve pain nerve pain [facility] Allergies, Adverse Reactions, Alerts Allergy Allergy Status Severity Reaction(s) Onset Inactive Treating Comm ents Source Name Type Date Date Clinician Tramadol Propensi Active Nausea 2017-11 Univer s ty to and/or 1-05 ity of adverse Vomiting 00:00: [place] reaction 00 [facility] TRAMADOL DRUG Active [place] 2017-11 Univers INGREDI 1-05 ity of 00:00: [place] 00 [facility] Toradol DA Active Unknown [facility] 11-28 Medical 00:00: [place] 00 Neuronti DA Active Unknown [facility] n 11-28 Medical 00:00: [place] Naproxen DA Active Unknown [facility] 11-28 Medical 00:00: [place] 00 Social History Social Habit Start Date Stop Date Quantity Comments Source History of tobacco Cigarette Smoker University of use [facility] Exposure to Not sure [facility] SARS-CoV-2 (event) [facility] Cigarettes smoked 2020-09-29 2020-09-29 Univers ity of current (pack per 00:00:00 00:00:00 [facility] edical ) - Reported Branch Tobacco use and 2020-09-29 2020-09-29 Never used Universit y of exposure 00:00:00 00:00:00 [facility] Alcohol intake 2020-09-29 2020-09-29 University of 00:00:00 00:00:00 [facility] Tobacco Comment 2020-09-09 2020-09-09 1 pack/3 days Univer sity of 00:00:00 00:00:00 [place] [facility] History SDOH 2020-09-06 2020-09-06 1 University o f Alcohol Frequency 00:00:00 00:00:00 [facility] edical Branch History SDOH 2020-09-06 2020-09-06 99 University o f Alcohol Std Drinks 00:00:00 00:00:00 [place] [facility] History SDOR 2020-09-06 2020-09-06 1 University o f Alcohol Binge 00:00:00 00:00:00 [facility] Branch [facility] At [birth year] [facility] Smoking Status Start Date Stop Date Source Current every day smoker 2020-09-29 00:00:00 Uni versity of [facility] Unknown if ever smoked [facility] Medications Ordered Filled Start Stop Current Ordering Indication Dosage Frequency Signature Comments Components Source Medication Medication Date Date Medication? Clinician (SIG) Name Name katelyn 2019-11 Yes [id number] 1{tbl} Take 1 Un [...] Yes .2mg 0.2 mg, Uni vers ne 11-12 Slow IV ity of (DILAUDID) 19:35: Push, [place] injection 58 Q5MIN PRN, Medi abisai 0.2 mg 10 doses, Branch Starting Sat09/12/20 at 1335, Until Discontinu ed, Routine, Pain (scale 7-10), PACU
Us e approved by (Faculty): PACU USE -ANESTHESI A SERVICE-HY DROMORPHON E INJECTIONS FENTanyl PF 2019-11 Yes 25ug 25 mcg, Uni vers (SUBLIMAZE 11-12 Slow IV ity of (PF)) 19:35: Push, [place] injection 58 Q5MIN PRN, Medi abisai 25 mcg 4 doses, Branch Starting Sat09/12/20 at 1335, Until Discontinu ed, Routine, Pain (scale 4-6), PACU ondansetron 2019-11 Yes 4mg 4 mg, Slow Univers (ZOFRAN 11-12 IV Push, ity of (PF)) 19:35: PRN, 1 [place] injection 4 58 dose, Medical mg Starting Branch Sat09/12/20 at 1335, Until Discontinu ed, Routine, Nausea and Vomiting (N/V), PACU lactated 2019-11 2020- No 1000mL at 42 Unive rs ringers IV 11-12 1102 mL/hr, ity of infusion 14:30: 14:30 1,000 mL, Tim as 1,000 mL 00 :00 IV Medical Infusion, Branch ONCE, 1 dose, Sat09/12/20 at 0830, Routine, DSU Pre-op acetaminoph 2019-11- No [id number] 1{tbl} Take 1 U nivers en-codeine 11-12 11-10 tablet by ity of 300-60 mg 00:00: 05:59 mouth [place] tablet 00 :00 every 6 Medical (six) Branch hours as needed for Pain (pain score 4-10) for up to 7 days. Indication s: acute pain acetaminoph 2019-11 2020- No [id number] 1{tbl} Take 1 U nivers en-codeine - 11-10 tablet by ity of 300-60 mg 00:00: 05:59 mouth [place] tablet 00 :00 every 6 Medical (six) Branch hours as needed for Pain (pain score 4-10) for up to 7 days. Indication s: acute pain clindamycin 2019- 2020- No [id number] 300mg Take 2 Univers 150 mg 0-27 11-07 capsules ity of capsule 00:00: 05:59 by mouth 4 Tim as 00 :00 (four) Medical times Branch daily for 10 days. clindamycin 2019- 2020- No [id number] 300mg Take 2 Univers 150 mg 0-27 11-07 capsules ity of capsule 00:00: 05:59 by mouth 4 [place] 00 :00 (four) Medical times Branch daily for 10 days. clindamycin 2019- 2020- No [id number] 300mg Take 2 Univers 150 mg 0-27 11-07 capsules ity of capsule 00:00: 05:59 by mouth 4 [place] 00 :00 (four) Medical times Branch daily for 10 days. clindamycin 2019-2019- No [id number] 300mg Take 2 Univers 150 mg 0-27 11-07 capsules ity of capsule 00:00: 05:59 by mouth 4 [place] 00 :00 (four) Medical times Branch daily for 10 days. clindamycin 2019- 2020- No [id number] 300mg Take 2 Univers 150 mg 0-27 11-07 capsules ity of capsule 00:00: 05:59 by mouth 4 [place] 00 :00 (four) Medical times Branch daily for 10 days. clindamycin 2019-2019- No [id number] 300mg Take 2 Univers 150 mg 0-27 11-07 capsules ity of capsule 00:00: 05:59 by mouth 4 [place] 00 :00 (four) Medical times Branch daily for 10 days. clindamycin 2019- 2020- No [id number] 300mg Take 2 Univers 150 mg 0-27 11-07 capsules ity of capsule 00:00: 05:59 by mouth 4 [place] 00 :00 (four) Medical times Branch daily for 10 days. clindamycin 2019- 2020- No [id number] 300mg Take 2 Univers 150 mg 0-27 11-07 capsules ity of capsule 00:00: 05:59 by mouth 4 [place] 00 :00 (four) Medical times Branch daily for 10 days. clindamycin 2019- 2020- No [id number] 300mg Take 2 Univers 150 mg 0-27 11-07 capsules ity of capsule 00:00: 05:59 by mouth 4 [place] 00 :00 (four) Medical times Branch daily for 10 days. divalproex 2020-1 Yes 500mg Take 500 Un tin 500 mg EC 0-22 mg by ity of tablet 00:00: mouth (two) Medical times Branch daily. hydrOXYzine 2020- Yes TAKE 1 Univ ers 50 mg 0-22 CAPSULE BY ity of capsule 00:00: MOUTH THREE Medical TIMES Branch DAILY NEEDED FOR ACUTE ANXIETY traZODone 2020- Yes TAKE 1 TO Uni vers 100 mg 0-22 2 TABLETS ity of tablet 00:00: BY MOUTH EVERY DAY Medical AT BEDTIME Branch DIRECTED NEEDED FOR INSOMNIA divalproex 2020-1 Yes 500mg Take 500 Un tin 500 mg EC 0-22 mg by ity of tablet 00:00: mouth [place] (two) Medical times Branch daily. hydrOXYzine 2020- Yes TAKE 1 Univ ers 50 mg 0-22 CAPSULE BY ity of capsule 00:00: MOUTH [place] THREE Medical TIMES Branch DAILY NEEDED FOR ACUTE ANXIETY traZODone 2020-1 Yes TAKE 1 TO Uni vers 100 mg 0-22 2 TABLETS ity of tablet 00:00: BY MOUTH [place] EVERY DAY Medical AT BEDTIME Branch DIRECTED NEEDED FOR INSOMNIA divalproex 2020-1 Yes 500mg Take 500 Un tin 500 mg EC 0-22 mg by ity of tablet 00:00: mouth [place] (two) Medical times Branch daily. hydrOXYzine 2019- Yes TAKE 1 Univ ers 50 mg 0-22 CAPSULE BY ity of capsule 00:00: [facility] THREE Medical TIMES Branch DAILY NEEDED FOR ACUTE ANXIETY traZODone 2020-1 Yes TAKE 1 TO Uni vers 100 mg 0-22 2 TABLETS ity of tablet 00:00: BY MOUTH [place] EVERY DAY Medical AT BEDTIME Branch DIRECTED NEEDED FOR INSOMNIA divalproex 2020-1 Yes 500mg Take 500 Un tin 500 mg EC 0-22 mg by ity of tablet 00:00: mouth [place] (two) Medical times Branch daily. hydrOXYzine 2020- Yes TAKE 1 Univ ers 50 mg 0-22 CAPSULE BY ity of capsule 00:00: MOUTH [place] THREE Medical TIMES Branch DAILY NEEDED FOR ACUTE ANXIETY traZODone 2020-1 Yes TAKE 1 TO Uni vers 100 mg 0-22 2 TABLETS ity of tablet 00:00: BY MOUTH [place] EVERY DAY Medical AT BEDTIME Branch DIRECTED NEEDED FOR INSOMNIA divalproex 2020-1 Yes 500mg Take 500 Un tin 500 mg EC 0-22 mg by ity of tablet 00:00: mouth [place] (two) Medical times Branch daily. hydrOXYzine 2020- Yes TAKE 1 Univ ers 50 mg 0-22 CAPSULE BY ity of capsule 00:00: MOUTH [place] THREE Medical TIMES Branch DAILY NEEDED FOR ACUTE ANXIETY traZODone 2020-1 Yes TAKE 1 TO Uni vers 100 mg 0-22 2 TABLETS ity of tablet 00:00: BY MOUTH [place] EVERY DAY Medical AT BEDTIME Branch DIRECTED NEEDED FOR INSOMNIA divalproex 2020-1 Yes 500mg Take 500 Un tin 500 mg EC 0-22 mg by ity of tablet 00:00: mouth [place] (two) Medical times Branch daily. hydrOXYzine 2020- Yes TAKE 1 Univ ers 50 mg 0-22 CAPSULE BY ity of capsule 00:00: [facility] Medical TIMES [place] DAILY NEEDED FOR ACUTE ANXIETY traZODone 2020-1 Yes TAKE 1 TO Uni vers 100 mg 0-22 2 TABLETS ity of tablet 00:00: BY MOUTH [place] EVERY DAY Medical AT BEDTIME Branch DIRECTED NEEDED FOR INSOMNIA divalproex 2020-1 Yes 500mg Take 500 Un tin 500 mg EC 0-22 mg by ity of tablet 00:00: mouth [place] (two) Medical times Branch daily. hydrOXYzine 2020- Yes TAKE 1 Univ ers 50 mg 0-22 CAPSULE BY ity of capsule 00:00: [facility] Medical TIMES Branch DAILY NEEDED FOR ACUTE ANXIETY traZODone 2020-1 Yes TAKE 1 TO Uni vers 100 mg 0-22 2 TABLETS ity of tablet 00:00: BY MOUTH [place] EVERY DAY Medical AT BEDTIME Branch DIRECTED NEEDED FOR INSOMNIA divalproex 2020-1 Yes 500mg Take 500 Un tin 500 mg EC 0-22 mg by ity of tablet 00:00: mouth [place] (two) Medical times Branch daily. hydrOXYzine 2020- Yes TAKE 1 Univ ers 50 mg 0-22 CAPSULE BY ity of capsule 00:00: MOUTH [place] THREE Medical TIMES Branch DAILY NEEDED FOR ACUTE ANXIETY traZODone 2020-1 Yes TAKE 1 TO Uni vers 100 mg 0-22 2 TABLETS ity of tablet 00:00: BY MOUTH [place] EVERY DAY Medical AT BEDTIME Branch DIRECTED NEEDED FOR INSOMNIA divalproex 2020-1 Yes 500mg Take 500 Un tin 500 mg EC 0-22 mg by ity of tablet 00:00: mouth [place] (two) Medical times Branch daily. hydrOXYzine 2020- Yes TAKE 1 Univ ers 50 mg 0-22 CAPSULE BY ity of capsule 00:00: MOUTH [place] [facility] Medical TIMES Branch DAILY NEEDED FOR ACUTE ANXIETY traZODone 2020-1 Yes TAKE 1 TO Uni vers 100 mg 0-22 2 TABLETS ity of tablet 00:00: BY MOUTH [place] EVERY DAY Medical AT BEDTIME Branch DIRECTED NEEDED FOR INSOMNIA divalproex 2020-1 Yes 500mg Take 500 Un tin 500 mg EC 0-22 mg by ity of tablet 00:00: mouth [place] (two) Medical times Branch daily. hydrOXYzine 2020- Yes TAKE 1 Univ ers 50 mg 0-22 CAPSULE BY ity of capsule 00:00: [facility] Medical TIMES [place] DAILY NEEDED FOR ACUTE ANXIETY traZODone 2020-1 Yes TAKE 1 TO Uni vers 100 mg 0-22 2 TABLETS ity of tablet 00:00: BY MOUTH [place] EVERY DAY Medical AT BEDTIME Branch DIRECTED NEEDED FOR INSOMNIA divalproex 2020-1 Yes 500mg Take 500 Un tin 500 mg EC 0-22 mg by ity of tablet 00:00: mouth [place] (two) Medical times Branch daily. hydrOXYzine 2020- Yes TAKE 1 Univ ers 50 mg 0-22 CAPSULE BY ity of capsule 00:00: [facility] Medical TIMES [place] DAILY NEEDED FOR ACUTE ANXIETY traZODone 2020-1 Yes TAKE 1 TO Uni vers 100 mg 0-22 2 TABLETS ity of tablet 00:00: BY MOUTH [place] EVERY DAY Medical AT BEDTIME Branch DIRECTED NEEDED FOR INSOMNIA divalproex 2020-1 Yes 500mg Take 500 Un tin 500 mg EC 0-22 mg by ity of tablet 00:00: mouth [place] (two) Medical times Branch daily. hydrOXYzine 2020-1 Yes TAKE 1 Univ ers 50 mg 0-22 CAPSULE BY ity of capsule 00:00: MOUTH [place] [facility] Medical TIMES Branch DAILY NEEDED FOR ACUTE ANXIETY traZODone 2020-1 Yes TAKE 1 TO Uni vers 100 mg 0-22 2 TABLETS ity of tablet 00:00: BY MOUTH [place] EVERY DAY Medical AT BEDTIME Branch DIRECTED NEEDED FOR INSOMNIA divalproex 2020-1 Yes 500mg Take 500 Un tin 500 mg EC 0-22 mg by ity of tablet 00:00: mouth [place] (two) Medical times Branch daily. hydrOXYzine 2020-1 Yes TAKE 1 Univ ers 50 mg 0-22 CAPSULE BY ity of capsule 00:00: MOUTH [place] THREE Medical TIMES Branch DAILY NEEDED FOR ACUTE ANXIETY traZODone 2020-1 Yes TAKE 1 TO Uni vers 100 mg 0-22 2 TABLETS ity of tablet 00:00: BY MOUTH [place] EVERY DAY Medical AT BEDTIME Branch DIRECTED NEEDED FOR INSOMNIA divalproex 2020-1 Yes 500mg Take 500 Un tin 500 mg EC 0-22 mg by ity of tablet 00:00: mouth [place] (two) Medical times Branch daily. hydrOXYzine 2020- Yes TAKE 1 Univ ers 50 mg 0-22 CAPSULE BY ity of capsule 00:00: [facility] Medical TIMES [place] DAILY NEEDED FOR ACUTE ANXIETY traZODone 2020-1 Yes TAKE 1 TO Uni vers 100 mg 0-22 2 TABLETS ity of tablet 00:00: BY MOUTH [place] EVERY DAY Medical AT BEDTIME Branch DIRECTED NEEDED FOR INSOMNIA divalproex 2020-1 Yes 500mg Take 500 Un tin 500 mg EC 0-22 mg by ity of tablet 00:00: mouth [address] [place] [address] (two) Medical times Branch daily. hydrOXYzine 2020-1 Yes TAKE 1 Univ ers 50 mg 0-22 CAPSULE BY ity of capsule 00:00: [facility] Medical TIMES [place] DAILY NEEDED FOR ACUTE ANXIETY traZODone 2020-1 Yes TAKE 1 TO Uni vers 100 mg 0-22 2 TABLETS ity of tablet 00:00: BY MOUTH [place] EVERY DAY Medical AT BEDTIME Branch DIRECTED NEEDED FOR INSOMNIA divalproex 2020-1 Yes 500mg Take 500 Un tin 500 mg EC 0-22 mg by ity of tablet 00:00: mouth [place] (two) Medical times Branch daily. hydrOXYzine 2020-1 Yes TAKE 1 Univ ers 50 mg 0-22 CAPSULE BY ity of capsule 00:00: MOUTH [place] [facility] Medical TIMES Branch DAILY NEEDED FOR ACUTE ANXIETY traZODone 2020-1 Yes TAKE 1 TO Uni vers 100 mg 0-22 2 TABLETS ity of tablet 00:00: BY MOUTH [place] EVERY DAY Medical AT BEDTIME Branch DIRECTED NEEDED FOR INSOMNIA divalproex 2020-1 Yes 500mg Take 500 Un tin 500 mg EC 0-22 mg by ity of tablet 00:00: mouth [place] (two) Medical times Branch daily. hydrOXYzine 2020- Yes TAKE 1 Univ ers 50 mg 0-22 CAPSULE BY ity of capsule 00:00: MOUTH [place] [facility] Medical TIMES [place] DAILY NEEDED FOR ACUTE ANXIETY traZODone 2020- Yes TAKE 1 TO Uni vers 100 mg 0-22 2 TABLETS ity of tablet 00:00: BY MOUTH [place] EVERY DAY Medical AT BEDTIME Branch DIRECTED NEEDED FOR INSOMNIA divalproex 2020- Yes 500mg Take 500 Un tin 500 mg EC 0-22 mg by ity of tablet 00:00: mouth [place] ([facility]) Medical times Branch daily. hydrOXYzine 2020- Yes TAKE 1 Univ ers 50 mg 0-22 CAPSULE BY ity of capsule 00:00: MOUTH [place] [facility] Medical TIMES [place] DAILY NEEDED FOR ACUTE ANXIETY traZODone 2020-1 Yes TAKE 1 TO Uni vers 100 mg 0-22 2 TABLETS ity of tablet 00:00: BY MOUTH [place] EVERY DAY Medical AT BEDTIME Branch DIRECTED NEEDED FOR INSOMNIA divalproex 2020-1 Yes 500mg Take 500 Un tin 500 mg EC 0-22 mg by ity of tablet 00:00: mouth [place] (two) Medical times Branch daily. hydrOXYzine 2020-1 Yes TAKE 1 Univ ers 50 mg 0-22 CAPSULE BY ity of capsule 00:00: [facility] Medical TIMES [place] DAILY NEEDED FOR ACUTE ANXIETY traZODone 2020-1 Yes TAKE 1 TO Uni vers 100 mg 0-22 2 TABLETS ity of tablet 00:00: BY MOUTH [place] EVERY DAY Medical AT BEDTIME Branch DIRECTED NEEDED FOR INSOMNIA divalproex 2020-1 Yes 500mg Take 500 Un tin 500 mg EC 0-22 mg by ity of tablet 00:00: mouth [place] (two) Medical times Branch daily. hydrOXYzine 2020- Yes TAKE 1 Univ ers 50 mg 0-22 CAPSULE BY ity of capsule 00:00: [facility] Medical TIMES Branch DAILY NEEDED FOR ACUTE ANXIETY traZODone 2020-1 Yes TAKE 1 TO Uni vers 100 mg 0-22 2 TABLETS ity of tablet 00:00: BY [facility] EVERY DAY Medical AT BEDTIME Branch DIRECTED NEEDED FOR INSOMNIA divalproex 2020-1 Yes 500mg Take 500 Un tin 500 mg EC 0-22 mg by ity of tablet 00:00: [facility] [place] (two) Medical times [place] daily. hydrOXYzine 2020- Yes TAKE 1 Univ ers 50 mg 0-22 CAPSULE BY ity of capsule 00:00: [facility] Medical TIMES [place] DAILY NEEDED FOR ACUTE ANXIETY traZODone 2020- Yes TAKE 1 TO Uni vers 100 mg 0-22 2 TABLETS ity of tablet 00:00: BY [facility] EVERY DAY Medical AT BEDTIME Branch DIRECTED NEEDED FOR INSOMNIA divalproex 2020-1 Yes 500mg Take 500 Un tin 500 mg EC 0-22 mg by ity of tablet 00:00: [facility] [place] ([facility]) Medical times [place] daily. hydrOXYzine 2020- Yes TAKE 1 Univ ers 50 mg 0-22 CAPSULE BY ity of capsule 00:00: [facility] Medical TIMES [place] DAILY NEEDED FOR ACUTE ANXIETY traZODone 2020- Yes TAKE 1 TO Uni vers 100 mg 0-22 2 TABLETS ity of tablet 00:00: BY [facility] EVERY DAY Medical AT BEDTIME Branch DIRECTED NEEDED FOR INSOMNIA divalproex 2020-1 Yes 500mg Take 500 Un tin 500 mg EC 0-22 mg by ity of tablet 00:00: [address] ([facility]) Medical times Branch daily. hydrOXYzine 2020-1 Yes TAKE 1 Univ ers 50 mg 0-22 CAPSULE BY ity of capsule 00:00: [facility] Medical TIMES [place] DAILY NEEDED FOR ACUTE ANXIETY traZODone 2020-1 Yes TAKE 1 TO Uni vers 100 mg 0-22 2 TABLETS ity of tablet 00:00: BY [facility] EVERY DAY Medical AT BEDTIME Branch DIRECTED NEEDED FOR INSOMNIA divalproex 2020-1 Yes 500mg Take 500 Un tin 500 mg EC 0-22 mg by ity of tablet 00:00: [address] (two) Medical times [place] daily. hydrOXYzine 2020-1 Yes TAKE 1 Univ ers 50 mg 0-22 CAPSULE BY ity of capsule 00:00: [facility] Medical TIMES [place] DAILY NEEDED FOR ACUTE ANXIETY traZODone 2020-1 Yes TAKE 1 TO Uni vers 100 mg 0-22 2 TABLETS ity of tablet 00:00: BY [facility] EVERY DAY Medical AT BEDTIME Branch DIRECTED NEEDED FOR INSOMNIA divalproex 2020-1 Yes 500mg Take 500 Un tin 500 mg EC 0-22 mg by ity of tablet 00:00: [facility] [place] (two) Medical times Branch daily. hydrOXYzine 2020- Yes TAKE 1 Univ ers 50 mg 0-22 CAPSULE BY ity of capsule 00:00: [facility] Medical TIMES [place] DAILY NEEDED FOR ACUTE ANXIETY traZODone 2020- Yes TAKE 1 TO Uni vers 100 mg 0-22 2 TABLETS ity of tablet 00:00: BY [facility] EVERY DAY Medical AT BEDTIME Branch DIRECTED NEEDED FOR INSOMNIA divalproex 2020-1 Yes 500mg Take 500 Un tin 500 mg EC 0-22 mg by ity of tablet 00:00: [facility] [place] ([facility]) Medical times Branch daily. hydrOXYzine 2020-1 Yes TAKE 1 Univ ers 50 mg 0-22 CAPSULE BY ity of capsule 00:00: [facility] Medical TIMES [place] DAILY NEEDED FOR ACUTE ANXIETY traZODone 2020-1 Yes TAKE 1 TO Uni vers 100 mg 0-22 2 TABLETS ity of tablet 00:00: BY [facility] EVERY DAY Medical AT BEDTIME Branch DIRECTED NEEDED FOR INSOMNIA divalproex 2020-1 Yes 500mg Take 500 Un tin 500 mg EC 0-22 mg by ity of tablet 00:00: [address] ([facility]) Medical times Branch daily. hydrOXYzine 2020-1 Yes TAKE 1 Univ ers 50 mg 0-22 CAPSULE BY ity of capsule 00:00: [facility] THREE Medical TIMES [place] DAILY NEEDED FOR ACUTE ANXIETY traZODone 2020-1 Yes TAKE 1 TO Uni vers 100 mg 0-22 2 TABLETS ity of tablet 00:00: BY [facility] EVERY DAY Medical AT BEDTIME Branch DIRECTED NEEDED FOR INSOMNIA divalproex 2020-1 Yes 500mg Take 500 Un tin 500 mg EC 0-22 mg by ity of tablet 00:00: [address] (two) Medical times Branch daily. hydrOXYzine 2020-1 Yes TAKE 1 Univ ers 50 mg 0-22 CAPSULE BY ity of capsule 00:00: MOUTH [place] [facility] Medical TIMES [place] DAILY NEEDED FOR ACUTE ANXIETY traZODone 2019- Yes TAKE 1 TO Uni vers 100 mg 0-22 2 TABLETS ity of tablet 00:00: BY [facility] EVERY DAY Medical AT BEDTIME Branch DIRECTED NEEDED FOR INSOMNIA divalproex 2019- Yes 500mg Take 500 Un tin 500 mg EC 0-22 mg by ity of tablet 00:00: mouth [place] (two) Medical times Branch daily. hydrOXYzine 2019- Yes TAKE 1 Univ ers 50 mg 0-22 CAPSULE BY ity of capsule 00:00: MOUTH [place] THREE Medical TIMES [place] DAILY NEEDED FOR ACUTE ANXIETY traZODone 2019- Yes TAKE 1 TO Uni vers 100 mg 0-22 2 TABLETS ity of tablet 00:00: BY [facility] EVERY DAY Medical AT BEDTIME Branch DIRECTED NEEDED FOR INSOMNIA divalproex 2019- Yes 500mg Take 500 Un tin 500 mg EC 0-22 mg by ity of tablet 00:00: mouth [place] (two) Medical times Branch daily. hydrOXYzine 2019- Yes TAKE 1 Univ ers 50 mg 0-22 CAPSULE BY ity of capsule 00:00: [facility] THREE Medical TIMES [place] DAILY NEEDED FOR ACUTE ANXIETY traZODone 2019- Yes TAKE 1 TO Uni vers 100 mg 0-22 2 TABLETS ity of tablet 00:00: BY [facility] EVERY DAY Medical AT BEDTIME Branch DIRECTED NEEDED FOR INSOMNIA divalproex 2019- Yes 500mg Take 500 Un tin 500 mg EC 0-22 mg by ity of tablet 00:00: mouth [place] (two) Medical times Branch daily. hydrOXYzine 2019- Yes TAKE 1 Univ ers 50 mg 0-22 CAPSULE BY ity of capsule 00:00: [facility] THREE Medical TIMES Branch DAILY NEEDED FOR ACUTE ANXIETY traZODone 2019- Yes TAKE 1 TO Uni vers 100 mg 0-22 2 TABLETS ity of tablet 00:00: BY [facility] EVERY DAY Medical AT BEDTIME Branch DIRECTED NEEDED FOR INSOMNIA ondansetron 2019-0 2020- No 4mg 4 mg, Slow Univers (ZOFRAN 06-08 IV Push, ity of (PF)) 14:15: 13:25 ONCE, 1 [place] injection 4 00 :00 dose, Sat Med ical mg 06/08/20 at Branch 0915, BOBBI morpHINE 2019- No 4mg 4 mg, Slow Un tin injection 4 06-08 IV Push, ity of mg 14:15: 13:25 ONCE, 1 [place] 00 :00 dose, [facility] Medical 06/08/20 at Branch 0915, STAT LORazepam 2018- No 2mg 2 mg, Univer s (ATIVAN) 07-17 Oral, ity of tablet 2 mg 00:34: 00:37 [place], [facility] 07/16/19 at Branch 1945, BOBBI LORazepam 2018- No 2mg 2 mg, Univer s (ATIVAN) 07-16 Oral, ity of tablet 2 mg 20:56: 21:02 [place]CE[place] dose, [facility] 07/16/19 at Branch 1600, [facility] Tylenol # 3 Tylenol # 3 2018- [...] ent Clinics No known No Univers medications ity [facility] No known No Univers medications ity of [facility] No known No Univers medications it of [facility] Zoloft Zoloft Yes Mac [address] [facility] Depakote Depakote Yes Mac not [facility] Vital Signs Vital Name Observation Time Observation Value Comments Source Systolic blood 2020-09-29 19:53:00 118 mm[Hg] Univer sity of pressure [place] [facility] Diastolic blood 2020-09-29 19:53:00 77 mm[Hg] Unive rsity of pressure [facility] Branch Heart rate 2020-09-29 19:53:00 79 /min Universi ty of [facility] Body height 2020-09-29 19:53:00 166.4 cm Universi ty of [facility] Systolic blood 2020-09-12 20:05:00 136 mm[Hg] Univer sity of pressure [facility] Diastolic blood 2020-09-12 20:05:00 85 mm[Hg] Unive rsity of pressure [facility] Heart rate 2020-09-12 20:05:00 51 /min Universi ty of [facility] Body temperature 2020-09-12 20:05:00 36.67 Sharona Univ ersity of [facility] Respiratory rate 2020-09-12 20:05:00 19 /min Univ ersity of [facility] Oxygen saturation in 2020-09-12 20:05:00 100 /min University of Arterial blood by [facility] Pulse oximetry Branch Body height 2020-09-08 15:11:00 165.1 cm [facility] [place] [facility] [place] Body weight 2020-09-08 15:11:00 61.2 kg [facility] [place] [facility] BMI 2020-09-08 15:11:00 22.45 kg/m2 Universi ty of [facility] Systolic blood 2020-09-06 16:15:00 115 mm[Hg] Univer sity of pressure [facility] Diastolic blood 2020-09-06 16:15:00 80 mm[Hg] Unive rsity of pressure [facility] Heart rate 2020-09-06 16:15:00 69 /min [facility] Body height 2020-09-06 16:15:00 165.1 cm [facility] Body weight 2020-09-06 16:15:00 61.236 kg [facility] [place] [facility] BMI 2020-09-06 16:15:00 22.47 kg/m2 Universi ty of [facility] Systolic blood 2020-06-08 12:56:00 120 mm[Hg] Univer sity of pressure [facility] Diastolic blood 2020-06-08 12:56:00 79 mm[Hg] Unive rsity of pressure [facility] Heart rate 2020-06-08 12:56:00 76 /min [facility] Body temperature 2020-06-08 12:56:00 36.67 Sharona Univ [facility] Respiratory rate 2020-06-08 12:56:00 16 /min Univ [facility] Body weight 2020-06-08 12:56:00 68.04 kg [facility] [place] [facility] BMI 2020-06-08 12:56:00 24.96 kg/m2 [facility] [place] [facility] Oxygen saturation in 2020-06-08 12:56:00 98 /min University of Arterial blood by [place] [facility] Pulse oximetry Branch Systolic blood 2020-04-06 16:00:00 126 mm[Hg] Univer sity of [facility] [place] [facility] Diastolic blood 2020-04-06 16:00:00 71 mm[Hg] Unive rsity of pressure [facility] Heart rate 2020-04-06 16:00:00 74 /min [facility] [place] [facility] Body temperature 2020-04-06 16:00:00 37.22 Sharona [facility] [place] [facility] Respiratory rate 2020-04-06 16:00:00 20 /min Univ [facility] [place] [facility] Body height 2020-04-06 16:00:00 165.1 cm [facility] [place] [facility] Body weight 2020-04-06 16:00:00 68.04 kg [facility] [place] [facility] BMI 2020-04-06 16:00:00 24.96 kg/m2 [facility] Oxygen saturation in 2020-04-06 16:00:00 100 /min University of Arterial blood by [place] [facility] Pulse oximetry Branch Systolic blood 2019-07-17 00:00:00 132 mm[Hg] Univer sity of [facility] Diastolic blood 2019-07-17 00:00:00 76 mm[Hg] Unive rsity of pressure [facility] Heart rate 2019-07-17 00:00:00 66 /min [facility] [place] [facility] Respiratory rate 2019-07-17 00:00:00 18 /min Univ [facility] [place] [facility] Oxygen saturation in 2019-07-17 00:00:00 98 /min University of Arterial blood by [place] [facility]ai Pulse oximetry Branch Body temperature 2019-07-16 20:03:00 36.78 Sharona Univ [facility] [place] [facility] Body weight 2019-07-16 20:02:00 79.379 kg [facility] Weight 2013-04-14 00:39:00 752.96 KG Height 2013-04-14 00:39:00 165.1 CM Procedures Procedure Date / Time Performing Clinician Source Performed NOTICE OF PRIVACY 2021-07-02 19:00:14 Doctor Unassigned, No [facility] PRACTICES [facility] CONSENT/REFUSAL FOR 2021-07-02 18:59:56 [facility], [facility] [place] XR FINGERS 2 VW RIGHT 2020-09-29 18:46:22 Seth Roca [facility] [place] TIME OR 2020-09-12 19:39:39 Seth Roca [facility] (NON-REPORTABLE) Medical [place] TIME OR 2020-09-12 19:20:07 Seth Roca [facility] (NON-REPORTABLE) Medical [place] DAY SURGERY - ADC 2020-09-12 06:01:00 Doctor Unassigned, No [facility] XR CHEST 2 VW 2020-09-09 19:40:29 Seth Roca [facility] CONSENT/REFUSAL FOR 2020-09-09 19:21:16 Doctor Unassigned, No [facility] [place] ASSIGNMENT OF BENEFITS 2020-09-09 19:18:53 Doctor Unassigned, No [facility] DSU PRE-OP 2020-09-08 05:01:00 Doctor Unassigned, No [facility] ASSIGNMENT OF BENEFITS 2020-09-06 16:09:16 Doctor Unassigned, No [facility] POCT TEST 2020-06-08 13:22:00 Jaret Webb [facility] LIPASE 2020-06-08 13:22:00 Jaret Webb [facility] HEPATIC FUNCTION PANEL 2020-06-08 13:22:00 Jaret Webb [facility] ([id number]) (ALB,T.PRO,BILI Medical Branch T,BU/BC,ALT,AST,ALK PHOS) BASIC METABOLIC PANEL 2020-06-08 13:22:00 Jaret Webb [facility] (NA, K, CL, CO2, Medical Branch GLUCOSE, BUN, CREATININE, CA) CBC WITH DIFF 2020-06-08 13:22:00 Tracey [facility] URINALYSIS 2020-06-08 13:22:00 Tracey [facility] RAPID STREP SCREEN FOR 2020-04-06 16:23:00 Sun Castro [facility] GROUP A Medical Branch NOTICE OF PRIVACY 2020-04-06 15:48:09 Doctor Unassigned, No [facility] Name Medical Branch CONSENT/REFUSAL FOR 2020-04-06 15:47:58 Doctor Unassigned, No [facility] Name [facility] FREE T4 2019-07-16 20:51:00 Matthieu Jimbo [facility] THYROID STIMULATING 2019-07-16 20:51:00 Jimbo Sommers [facility] HORMONE [facility] HEPATIC FUNCTION PANEL 2019-07-16 20:51:00 Jimbo Sommers [facility] ([id number]) (ALB,T.PRO,BILI [facility] Branch T,BU/BC,ALT,AST,ALK PHOS) BASIC METABOLIC PANEL 2019-07-16 20:51:00 Matthieu Jimbo [facility] (NA, K, CL, CO2, Medical Branch GLUCOSE, BUN, CREATININE, CA) SALICYLATE 2019-07-16 20:51:00 Matthieu Jimbo [facility] ETHANOL 2019-07-16 20:51:00 Matthieu Jimbo [facility] CBC WITH DIFFERENTIAL 2019-07-16 20:51:00 Jimbo Sommers [facility] URINALYSIS 2019-07-16 20:51:00 Matthieu Jimbo [facility] ADC / LCC - DRUG SCREEN 2019-07-16 20:51:00 Jimbo Sommers [facility] TRIAGE [facility] POCT TEST 2019-07-16 20:37:00 Jimbo Sommers [facility] EKG-12 LEAD 2019-07-16 20:28:43 Jimbo Sommers [facility] NOTICE OF PRIVACY 2019-07-16 19:39:12 Doctor Unassigned, No [facility] Name Medical Branch CONSENT/REFUSAL FOR 2019-07-16 19:38:59 Doctor Unassigned, No Un [facility] DIAGNOSIS AND TREATMENT Name Medical Branch SKIN CLOSURE NEC 2013-04-14 00:00:00 [facility] Encounters Start End Encounter Admission Attending Care Care Encounter Source Date/Time Date/Time Type Type Clinicians Facility Department ID 2021-09-11 Emergency [facility] [id number] Univers 17:13:34 ity of [facility] 2021-09-09 Outpatient R CHANELLE, [facility] PADMINI [id number] Univers 01:42:20 SETH ity of [facility] 2021-07-02 2021-07-02 Emergency [facility] [id number] Univers 14:21:00 15:17:00 [place] [id number] i ty of [place] 4.2.7.2.686 [place] [facility] [phone] [facility] 084 [place] 2021-07-02 2021-07-02 Orders Doctor LUCÍA 1.2.840.114 [id number] Univers 00:00:00 00:00:00 Only Unassigned, CATIE [id number] ity of [place] [facility] 4.2.7.2.686 Tim as [phone] [facility] 009 Branch 2021-07-02 2021-07-02 Orders Doctor LUCÍA 1.2.840.114 [id number] 00:00:00 00:00:00 Only Unassigned, CATIE [id number] [place] [facility] 4.2.7.2.686 [id number] 009 2020-10-25 2020-10-25 Telephone [facility] [id number] Univers 00:00:00 00:00:00 Anali GIS Cloud [id number] it y of Surgical 4.2.7.2.686 Tim as Specialti [phone] Mn dical 198 [facility] 2020-10-25 2020-10-25 [facility] [id number] 00:00:00 00:00:00 Anali S Health [id number] Surgical 4.2.7.2.686 Specialti [id number] es [address] [place] [address] 2020-10-17 2020-10-17 Outpatient Anuj BOYKIN [facility] [id number] -[id number] Univers 14:00:00 14:00:00 ANALI ity [facility] 2020-10-17 2020-10-17 [facility] [id number] Univers 14:00:00 14:00:00 ANALI ity [facility] 2020-10-14 2020-10-14 Telephone [facility] [id number] Univers 00:00:00 00:00:00 Anali S PRIMARY [id number] it y of [place] [facility] [phone] Mn dical [address] [place] [address] 2020-10-14 2020-10-14 Nurse LUCÍA Saleem 1.2.840.114 [id number] Univers 00:00:00 00:00:00 Triage Monie CATIE 350.1.13.10 it y of HOSPITAL 4.2.7.2.686 Tim as [phone] [address] 2020-10-14 2020-10-14 Telephone [facility] [id number] 00:00:00 00:00:00 Anali S PRIMARY [id number] CARE 4.2.7.2.686 PAVILLION [id number] 198 2020-10-14 2020-10-14 LUCÍA Cornelius 1.2.840.114 [id number] 00:00:00 00:00:00 Triage Monie CATIE 350.1.13.10 HOSPITAL 4.2.7.2.686 [id number] 2020-10-13 2020-10-13 [facility] [id number] -[id number] Univers 10:30:00 10:30:00 ANALI ity [facility] 2020-10-13 2020-10-13 Outpatient [facility] [id number] Univers 10:30:00 10:30:00 ANALI ity [facility] 2020-10-04 2020-10-04 [facility] 1.2.840.114 [id number] Univers 00:00:00 00:00:00 Assessment Anali S Health [id number] ity of Surgical 4.2.7.2.686 Tim as Specialti [phone] Me dical es 198 [facility] 2020-10-04 2020-10-04 Clinic [facility] 1.2.840.114 [id number] 00:00:00 00:00:00 Assessment [facility] Health [id number] Surgical 4.2.7.2.686 Specialti [id number] [address] 2020-10-03 2020-10-03 Outpatient An[facility] [id number] -[id number] Univers 14:00:00 14:00:00 ANALI [id number] ity [facility] 2020-10-03 2020-10-03 Outpatient [facility] [id number] Univers 14:00:00 14:00:00 [facility] 2020-09-30 2020-09-30 Outpatient An[facility] [id number] Univers 08:00:00 08:00:00 [facility] 2020-09-30 2020-09-30 Outpatient Anuj [facility] [id number] Univers 08:00:00 08:00:00 [facility] 2020-09-30 2020-09-30 Roller Picker Veronica Bradshaw Lab Main [facility] 1.2.8 40.114 [id number] Univers 07:42:57 07:57:57 Visit RocaSeth serna Center [place] 350.1.13.10 ity of [place].7.2.[place] Profess[place] [phone] Mn dical nal 353 [facility] 2020-09-30 2020-09-30 Telephone [facility] 1.2.254.089 [id number] Univers 00:00:00 00:00:00 [facility] Health 350.1.13.10 it y of Surgical 4.2.7.2.686 Tim as Specialti [phone] Mn dical es 198 [facility] 2020-09-30 2020-09-30 Telephone [facility] [id number] 00:00:00 00:00:00 [facility] Health 350.1.13.10 Surgical 4.2.7.2.686 Specialti [id number] es 198 [facility] [place] 2020-09-29 2020-09-29 [facility] 1.2.840.114 [id number] Univers 12:28:56 23:59:00 Encounter Seth Gil 350.1.13.10 ity of [place]2.7.2.686 [place] [id number] [facility] [address] [place] [address] 2020-09-29 2020-09-29 Office [facility] 1.2.840.114 [id number] Univers 13:51:51 15:05:33 Visit Anali Leon Health 350.1.13.10 it y of Surgical 4.2.7.2.686 Tim as Specialti [phone] Mn dical es 198 [facility] 2020-09-29 2020-09-29 Outpatient [facility] [id number] -[id number] Univers 13:45:00 13:45:00 ANALI [id number] ity [facility] 2020-09-29 2020-09-29 Outpatient [facility] [id number] Univers 13:45:00 13:45:00 ANALI ity [facility] 2020-09-29 2020-09-29 Telephone [facility] 1.2.820.387 [id number] Univers 00:00:00 00:00:00 Anali Leon Health 350.1.13.10 it y of Surgical 4.2.7.2.686 Tim as Specialti [phone] Mn dical es 198 [facility] 2020-09-28 2020-09-28 Telephone [facility] 1.2.840.114 [id number] Univers 00:00:00 00:00:00 Seth Hoffmann Health 350.1.13.10 it y of Surgical 4.2.7.2.686 Tim as Specialti [id number] Mn dical es 198 [facility] 2020-09-28 2020-09-28 Telephone [facility] 1.2.840.114 [id number] Univers 00:00:00 00:00:00 Seth Hoffmann Health 350.1.13.10 it y of Surgical 4.2.7.2.686 Tim as Specialti [id number] Mn dical es 198 [facility] 2020-09-27 2020-09-27 Telephone [facility] 1.2.244.572 [id number] Univers 00:00:00 00:00:00 [facility] Health 350.1.13.10 it y of Surgical 4.2.7.2.686 Tim as Specialti [phone] Mn dical es 198 [facility] 2020-09-26 2020-09-26 Outpatient Anuj [facility] [id number] -[id number] Univers 16:00:00 16:00:00 [facility]NALI [id number] [facility] 2020-09-26 2020-09-26 Outpatient Anuj [facility] [id number] Univers 16:00:00 16:00:[address] [facility] 2020-09-26 2020-09-26 [facility] [id number] Univers 00:00:00 00:00:00 Anali Health 350.1.13.10 it y of Surgical 4.2.7.2.686 Tim as Specialti [phone] Mn dical es 198 [facility] 2020-09-23 2020-09-23 [facility] [id number] Univers 10:15:00 10:15:00 SETH [id number] [facility] 2020-09-23 2020-09-23 Outpatient [facility] [id number] Univers 10:15:00 10:15:00 [facility] 2020-09-19 2020-09-19 Telephone [facility] 1.2.840.114 [id number] Univers 00:00:00 00:00:00 Seth [facility] 350.1.13.10 it y of Surgical 4.2.7.2.686 Tim as Specialti [phone] Mn dical es 198 [facility] 2020-09-12 2020-09-12 [facility] 1.2.840.114 [id number] Univers 08:14:00 14:20:00 Encounter Seth Shun [facility] [place] 350.1.13.10 ity of [place].2.[place] Surgical [phone] [address] 2020-09-12 2020-09-12 Orders Doctor LUCÍA 1.2.840.114 [id number] Univers 00:00:00 00:00:00 Only Unassigned, CATIE 350.1.13.10 ity of [place] [facility] 4.2.7.2.686 Tim as [id number] [facility] 009 [place] 2020-09-09 2020-09-09 Hospital [facility] 1.2.840.114 [id number] Univers 14:17:36 23:59:00 Encounter Seth Gil 350.1.13.10 ity of [place] 4.2.[place].2.686 [place] [phone] [facility] 807 [place] 2020-09-09 2020-09-09 Roller Picker [place], Adc Lab Main [facility] 1.2.8 40.114 [id number] Univers 14:16:24 14:31:24 Visit Seth Roca 350.1.13.10 ity of [place].2.7.2.[place] [id number] Mn dical [facility] 353 [facility] 2020-09-09 2020-09-09 Laboratory Only, Adc Test [facility] 1.2.840. 114 [id number] Univers 14:15:01 14:30:01 Only Venkat Stark 350.1.13.10 ity of [place] 4.2.7.2.686 [place] [id number] [address] 2020-09-09 2020-09-09 Outpatient R [facility] [id number] -[id number] Univers 14:15:00 14:15:00 [id number] ity of [facility] 2020-09-09 2020-09-09 Outpatient [facility] [id number] Univers 14:00:00 14:00:00 SETH ity of [facility] 2020-09-08 2020-09-08 Orders Doctor CASTREJON 1.2.840.114 [id number] Univers 00:00:00 00:00:00 Only Unassigned, CATIE 350.1.13.10 ity of [place] [facility] 4.2.7.2.686 Tim as [phone] [address] 2020-09-07 2020-09-07 Prep For Chanelle [facility] 1.2.840.114 [id number] Univers 00:00:00 00:00:00 Surgery [facility] 350.1.13.10 it y of Surgical 4.2.7.2.686 Tim as Specialti [phone] Me dical es 198 [facility] 2020-09-06 2020-09-06 Office Lucretia [facility] 1.2.840.114 [id number] Univers 11:10:09 11:25:09 Visit Anali Leon [facility] 350.1.13.10 it y of Surgical 4.2.7.2.686 Tim as Specialti [id number] Me dical es 198 [facility] 2020-09-06 2020-09-06 Outpatient [facility] [id number] Univers 10:00:00 10:00:00 [facility] 2020-09-06 2020-09-06 Orders Doctor LUCÍA 1.2.840.114 [id number] Univers 00:00:00 00:00:00 Only Unassigned, CATIE 350.1.13.10 ity of [place] [facility] 4.2.7.2.686 Tim as [phone] [facility] 009 [place] 2020-06-08 2020-06-08 Emergency Tracey, TRAUMA 1.2.356.533 [id number] Univers 07:57:26 09:17:00 [facility] 350.1.13.10 it y of [place].2.[place] [id number] [facility] 014 [place] 2020-06-08 2020-06-08 Emergency X TRACEY [facility] ERT [id number] Univers 07:57:26 07:57:26 [facility] 2020-04-06 2020-04-06 Emergency [facility] 1.2.840.114 [id number] Univers 11:02:11 12:59:00 Sun Gil 350.1.13.10 i ty of [place] 4.2.7.2.686 [place] [id number] [facility] 084 [place] 2020-04-06 2020-04-06 Emergency X [facility] ERT [id number] Univers 10:49:00 10:49:00 ity of [facility] 2020-04-06 2020-04-06 Orders Doctor LUCÍA 1.2.840.114 [id number] Univers 00:00:00 00:00:00 Only Unassigned, CATIE 350.1.13.10 [facility] [facility] 4.2.7.2.686 Tim [id number] [facility] 009 Branch 2019-07-16 2019-07-16 Emergency Sommers, [facility] 1.2.040.992 [id number] Univers 15:08:41 20:56:00 Jimbo Gil 350.1.13.10 i ty of [place] 4.2.7.2.686 [facility] [id number] [facility] 084 Branch 2019-05-20 2019-05-20 [facility] [id number] 16:15:00 16:15:00 t [facility] 2019-05-07 2019-05-07 [facility] [id number] 15:30:00 15:30:00 t [facility] 2019-05-07 2019-05-07 [facility] [id number] 14:28:00 14:28:00 t [facility] Clinics 2019-05-06 2019-05-06 [facility] [id number] 11:28:00 11:28:00 t [facility] Clinics 2019-05-05 2019-05-05 [facility] [id number] 14:00:00 14:00:00 t [facility] ent Clinics 2019-04-28 2019-04-28 [facility] [id number] 09:30:00 09:30:00 t [facility] of [facility] ent Clinics 2019-04-24 2019-04-24 [facility] [id number] 10:53:00 10:53:00 [facility] 2019-04-24 2019-04-24 [facility] [id number] 10:06:00 10:06:00 t [facility] a Clinic of [facility] ent [facility] 2019-01-12 2019-01-12 [facility] [id number] 10:00:00 10:00:00 t [place] [employer] [facility] [employer] [facility] 2013-04-14 2013-04-14 Emergency E ESTEE, [employer] [employer] [id number] [facility] 03:12:00 [facility] Results Test Description Test Test Results Result Source Time Comments Comments XR FINGERS 2 VW 2020-09- HISTORY: ?Pain. Univ ersity of RIGHT 19 FINDINGS: AP and [facility] dical 18:49:48 lateral views of right Br [...] rsity of (NON-REPORTABLE) 02 require a [facility]iology [place] [facility] 19:40:57 diagnostic report. Branch [place] TIME OR 2020-09- These images do not Unive rsity of (NON-REPORTABLE) 02 require a Radiology [facility] 19:23:57 diagnostic report. Branch XR CHEST [...] normal limits. ?No acute bonyabnormalities are seen. [facility], Radiant Results Inft User - 09/09/2020 2:57 [...] Interpretation Comme nts NA (test code = 1552286863) 136 mmol/L 135-145 K (test code = 3493955474) 4.4 mmol/L 3.5-5 CL (test code = 1470553474) 106 mmol/L 98-108 CO2 TOTAL (test code = 23 mmol/L 23-31 4819021021) AGAP (test code = 2400394240) 2-16 BUN (test code = 0004137908) 14 mg/dL 7-23 GLUCOSE (test code = 0821033995) 91 mg/dL 70-110 CREATININE (test code = 0.59 mg/dL 0.5-1.04 9050834419) CALCIUM (test code = 3344143040) 9.1 mg/dL 8.6-10.6 eGFR Calculation (Non- mL/min/1.73m2 [place]) (test code = 6512463406) eGFR Calculation ( mL/min/1.73m2 [place]) (test code = 5417247773) LUCY (test code = LUCY) Association of [...] or urine or abnormalities in imaging tests). [facility] (ALB, T.PRO, BILI T, BU/BC, ALT, AST, ALK PHOS)2020-06-08 13:47:00 Test Item Value Reference Range Interpretation Comments TOTAL BILI (test code = 9258635103) 0.3 mg/dL 0.1-1.1 BILI UNCON (test code = 9530117955) 0.5 mg/dL 0.1-1.1 BILI CONJ (test code = 6107823136) 0.0 mg/dL 0-0.3 T PROTEIN (test code = 4401212366) 7.1 g/dL 6.3-8.2 ALBUMIN (test code = 6192100134) 4.2 g/dL 3.5-5 ALK PHOS (test code = 3280541370) 53 U/L 34-122 ALTv (test code = 1742-6) 22 U/L 5-35 AST(SGOT) (test code = 4894276854) 32 U/L 13-40 Lab Interpretation (test code = Normal 52356-3) [facility]vine[facility] Obryj9278-02-62 13:47:00 Test Item Value Reference Range Interpretation Comments LIPASE (test code = 9057871905) 142 U/L 0-220 Lab Interpretation (test code = Normal 98336-2) [facility]vineUrinalysis2020-07-29 13:47:00 Test Item Value Reference Range Interpretation Comments APPEARANCE (test code = Clear Clear 2083807825) COLOR (test code = Straw Yellow A 3685769185) PH (test code = 4.8-8.0 8524370878) SP GRAVITY (test code = 1.003-1.030 L 3406390706) GLU U QUAL (test code = Normal Normal 7226070453) BLOOD (test code = Negative Negative 5598574446) KETONES (test code = Negative Negative 7382051428) PROTEIN (test code = Negative Negative 2887-8) UROBILIN (test code = Normal Normal 8165757403) BILIRUBIN (test code = Negative Negative 9985070669) NITRITE (test code = Negative Negative 2836264424) LEUK MAYNOR (test code = Negative Negative 1143367430) RBC/HPF (test code = <1 See_Comment [Autom ated message] 1823258591) The system [employer] generated this result transmitted ref erence range: 0 - 3 HP F. The reference range was not used to int erpret this result as normal/abnormal . WBC/HPF (test code = <1 See_Comment [Autom ated message] [id number]) The system [employer] generated this result transmitted ref erence range: 0 - 5 HP F. The reference range was not used to int erpret this result as normal/abnormal . BACTERIA (test code = Negative Negative 4610773568) SQ EPITH (test code = <1 See_Comment [Auto mated message] 3474951203) The system [employer] generated this result transmitted ref erence range: <=2 HPF. The reference range was not used to int erpret this result as normal/abnormal . Lab Interpretation (test Abnormal code = 23000-3) [facility] acute hospital with [id number] 13:37:00 Test Item Value Reference Range Interpretation Comments WBC (test code = See_Comment [Automated 6690-2) message] The sy stem which generated this result transmitted reference range : 4.30 - 11.10 10*3/?L. The reference range was not used to interpret this result as normal/abnormal . RBC (test code = See_Comment [Automated 789-8) message] The sy stem which generated this [...] RDW-SD (test code = 42.9 fL 39-49.9 67067-5) RDW-CV (test code = 16.6 % 12-15.5 H 788-0) PLT (test code = See_Comment [Automated 777-3) message] The sy stem which generated this result transmitted reference range : 166 - 358 10*3/ ?L. The reference r shantanu was not used to interpret this result as normal/abnormal . MPV (test code = 9.3 fL 9.5-12.9 L 17035-4) NRBC/100 WBC (test See_Comment [Automat ed code = 6771543786) message] The system which generated this result transmitted reference range : 0.0 - 10.0 /100 WBCs. The refer ence range was not u sed to interpret th is result as normal/abnormal . NRBC x10^3 (test code <0.01 See_Comment [Auto mated = 5569813427) message] The s ystem which generated this result transmitted reference range : 10*3/?L. The reference range was not used to interpret this result as normal/abnormal . GRAN MAT (NEUT) % 55.7 % (test code = 770-8) IMM GRAN % (test code 0.20 % = 9510972905) LYMPH % (test code = 30.8 % 736-9) MONO % (test code = 10.2 % 5905-5) EOS % (test code = 2.1 % 713-8) BASO % (test code = 1.0 % 706-2) GRAN MAT x10^3(ANC) 3.40 10*3/uL 1.88-7.09 (test code = 2145361271) IMM GRAN x10^3 (test <0.03 0-0.06 code = 3516334661) LYMPH x10^3 (test code 1.88 10*3/uL 1.32-3.29 = 731-0) MONO x10^3 (test code 0.62 10*3/uL 0.33-0.92 = 742-7) EOS x10^3 (test code = 0.13 10*3/uL 0.03-0.39 711-2) BASO x10^3 (test code 0.06 10*3/uL 0.01-0.07 = 704-7) Lab Interpretation Abnormal (test code = 45337-6) [id number] 13:22:00 Test Item Value Reference Range Interpretation Comments POCT PREG (test code = 1605) NEGATIVE On board controls acceptable with PRESENT C Line (test code = 3574) POCT PREG LOT # (test code = 3575) [id number] POCT PREG TEST DATE (test 08/10/2021 code = 3576) Lab Interpretation (test code = Normal 18830-6) [facility] [id number] 16:56:00 Test Item Value Reference Range Interpretation Comments Streptococcus pyogenes (group A) Negative Negative antigen (test code = 28568-2) Lab Interpretation (test code = Normal 80167-7) [facility]inalysis2019-09-05 22:17:00 Test Item Value Reference Range Interpretation Comments APPEARANCE (test code = Clear Clear 0271189298) COLOR (test code = Yellow Yellow 0685384204) PH (test code = 4.8-8.0 7757007926) SP GRAVITY (test code = 1.003-1.030 9147249669) GLU U QUAL (test code = Negative Negative 2562500137) BLOOD (test code = Trace Negative A 1682853196) KETONES (test code = Trace Negative A 4033648568) PROTEIN (test code = Negative Negative 2887-8) UROBILIN (test code = 0.2 mg/dL See_Comment [Auto mated message] 7045187016) The system [employer] generated this result transmit an reference range : 0-1.0 mg/dL. Th e reference range was not used to interpret this result as normal/abnormal . BILIRUBIN (test code = Small Negative A 8500729155) NITRITE (test code = Negative Negative 7712757095) LEUK MAYNOR (test code = Negative Negative 7606591705) RBC/HPF (test code = See_Comment [Autom ated message] 7434612541) The system [employer] generated this result transmit an reference range : 0 - 3 HPF. The refe rence range was not u sed to interpret th is result as normal/abnormal . WBC/HPF (test code = See_Comment [Autom ated message] 8802135750) The system [employer] generated this result transmit an reference range : 0 - 5 HPF. The refe rence range was not u sed to interpret th is result as normal/abnormal . BACTERIA (test code = Negative Negative 4555071529) AMORPHOUS (test code = Few HPF 8450691407) SQ EPITH (test code = HPF 6848231113) Ictotest (test code = Negative 5012373539) Lab Interpretation (test Abnormal code = 68668-5) [facility] STIMULATING [id number] 22:15:00 Test Item Value Reference Range Interpretation Comments TSH (test code = See_Comment [Automated message] 0578974974) The system [employer] generated this result transmitted ref erence range: 0.45 - 4 .70 mIU/L. The refe rence range was not u sed to interpret this result as normal/abnor mal. Lab Interpretation (test Normal code = 71323-8) [facility] [id number] 22:01:00 Test Item Value Reference Range Interpretation Comments FREE T4 (test code = 1903927128) 1.34 ng/dL 0.78-2.2 Lab Interpretation (test code = Normal 34185-9) [facility] [id number] 21:59:00 Test Item Value Reference Range Interpretation Comments BENZO U (test code = Presumptive Positive Negative A 6246793381) ILEANA U (test code = Negative Negative 4501343285) AMPHET (test code = Negative Negative 4148420644) THC (test code = Negative Negative 9803517814) METHADONE (test code = Negative Negative 3483156927) Meth U (test code = Negative Negative 5709776349) OPIATES (test code = Negative Negative 0699285458) Cocaine Metabolite (test Presumptive Positive Negative A code = 7417511294) PROPOXY (test code = Negative Negative 1175035005) Tric U (test code = Negative Negative 1759424151) PCP (test code = Negative Negative 1672634901) OXYCOD (test code = Negative Negative 9938481365) LUCY (test code = LUCY) Urine Drug [...] testing). Lab Interpretation (test Abnormal code = 77191-9) [facility]2019-09-05 21:54:00 Test Item Value Reference Range Interpretation Comments ALCOHOL (test code = <10 mg/dL 2787324611) LUCY (test code = LUCY) <10 [id number] Toxic>100 Depression of DINKEY ENGINE FIRER/FIREMAN>400 Fatalities Reported [facility]vineSALICYLATE2019-09-05 21:54:00 Test Item Value Reference Range Interpretation Comments SALICYLATE (test code <10 mg/L = 1092905811) LUCY (test code = LUCY) Therapeutic Range:? Analgesic and Antipyretic Use? 20-100 mg/L? Anti-Inflammatory Use? 100-250 mg/LToxic Range:? Greater than 300 mg/L [facility]vineACETAMINOPHEN2019-09-05 21:54:00 Test Item Value Reference Range Interpretation Comments ACETAMINOP (test code = <10.0 10-30 L 9316405059) LUCY (test code = LUCY) Toxic: Greater than 200 ug/mL @ 4 hour post ingestion or greater than 50 ug/mL @ 12 hour post ingestion Lab Interpretation (test Abnormal code = 99173-8) [facility]vine[facility]atic Function Panel (ALB, T.PRO, BILI T, BU/BC, ALT, AST, ALK PHOS)2019-07-16 21:43:00 Test Item Value Reference Range Interpretation Comments TOTAL BILI (test code = 8935568314) 0.2 mg/dL 0.1-1.1 BILI UNCON (test code = 7325182744) 0.2 mg/dL 0.1-1.1 BILI CONJ (test code = 6416167964) 0.0 mg/dL 0-0.3 T PROTEIN (test code = 0668275566) 7.2 g/dL 6.3-8.2 ALBUMIN (test code = 8015438228) 4.4 g/dL 3.5-5 ALK PHOS (test code = 8322490692) 54 U/L 34-122 ALT(SGPT) (test code = 0005937355) 26 U/L 9-51 AST(SGOT) (test code = 1050826370) 25 U/L 13-40 Lab Interpretation (test code = Normal 89820-6) [facility] Metabolic Panel (NA, K, CL, CO2, GLUCOSE, BUN, CREATININE, CA)2019-07-16 21:42:00 Test Item Value Reference Range Interpretation Comments NA (test code = 148 mmol/L 135-145 H 9603824792) K (test code = 3.4 mmol/L 3.5-5 L 2666778821) CL (test code = 113 mmol/L 98-108 H 3012087239) CO2 TOTAL (test code = 25 mmol/L 23-31 2804335063) AGAP (test code = 2-16 6523620064) BUN (test code = 11 mg/dL 7-23 8501798334) GLUCOSE (test code = 98 mg/dL 70-110 0678948303) CREATININE (test code = 0.78 mg/dL 0.5-1.04 0405025886) CALCIUM (test code = 9.2 mg/dL 8.6-10.6 6062049939) eGFR Calculation mL/min/1.73m2 (Non-) (test code = 4282639768) eGFR Calculation mL/min/1.73m2 () (test code = 7042244577) LUCY (test code = LUCY) Association of [...] tests). Lab Interpretation Abnormal (test code = 68614-7) General acute hospital WITH [id number] 21:24:00 Test Item Value Reference Range Interpretation Comments WBC (test code = See_Comment L [Automated 6690-2) message] The sy stem which generated this result transmitted reference range : 4.30 - 11.10 10*3/?L. The reference range was not used to interpret this result as normal/abnormal . RBC (test code = See_Comment [Automated 789-8) message] The sy stem which generated this [...] (test code = 51.6 fL 39-49.9 H 40234-9) RDW-CV (test code = 20.4 % 12-15.5 H 788-0) PLT (test code = See_Comment [Automated 777-3) message] The sy stem which generated this result transmitted reference range : 166 - 358 10*3/ ?L. The reference r shantanu was not used to interpret this result as normal/abnormal . MPV (test code = 9.2 fL 9.5-12.9 L 58722-1) NRBC/100 WBC (test See_Comment [Automat ed code = 5121894988) message] The system which generated this result transmitted reference range : 0.0 - 10.0 /100 WBCs. The refer ence range was not u sed to interpret th is result as normal/abnormal . NRBC x10^3 (test code <0.01 See_Comment [Auto mated = 0681000073) message] The s ystem which generated this result transmitted reference range : 10*3/?L. The reference range was not used to interpret this result as normal/abnormal . GRAN MAT (NEUT) % 58.7 % (test code = 770-8) IMM GRAN % (test code 0.30 % = 8036107198) LYMPH % (test code = 24.1 % 736-9) MONO % (test code = 15.5 % 5905-5) EOS % (test code = 0.8 % 713-8) BASO % (test code = 0.6 % 706-2) GRAN MAT x10^3(ANC) 2.12 10*3/uL 1.88-7.09 (test code = 6006659590) IMM GRAN x10^3 (test <0.03 0-0.06 code = 0123459252) LYMPH x10^3 (test code 0.87 10*3/uL 1.32-3.29 L = 731-0) MONO x10^3 (test code 0.56 10*3/uL 0.33-0.92 = 742-7) EOS x10^3 (test code = 0.03 10*3/uL 0.03-0.39 711-2) BASO x10^3 (test code <0.03 0.01-0.07 = 704-7) Lab Interpretation Abnormal (test code = 26285-9) [facility] Test, [id number] 20:37:00 Test Item Value Reference Range Interpretation Comments POCT PREG (test code = 1605) negative On board controls acceptable with present C Line (test code = 3574) POCT PREG LOT # (test code = 3575) [id number] POCT PREG TEST DATE (test 11/10/2020 code = 3576) Lab Interpretation (test code = Normal 28485-8) [facility]"
[2021-12-31] MEDS ORDERED: HYDROCODONE/APAP 5/325 MG TAB ONE (12:41)
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
[2021-12-31 13:07] VITALS: BP 111/88; TEMP 98.2; O2SAT 100
== END 2021-12-31 13:02 | disposition home or self-care (01) ==
LOC: ER 10:59
DX: S20.212A Contusion of left front wall of thorax, initial encounter (principal); V89.2XXA Person injured in unspecified motor-vehicle accident, traffic, initial encounter; F20.9 Schizophrenia, unspecified; Z88.6 Allergy status to analgesic agent; F17.210 Nicotine dependence, cigarettes, uncomplicated
CPT/HCPCS: 99283

== ENCOUNTER 2022-09-30 14:05 | Emergency (ER) | payer OTHER ==
--- OUTSIDE RECORDS SUMMARY | 2022-09-30 14:41 | XMS REPORT | Continuity of Care Document ---
:1975 Author Organization [facility] t Address [address] [place] [address] [address] [place] [address] Care Team Providers Name Role Phone SETH ROCA Attending Clinician Unavailable Doctor Unassigned, [place] Attending Clinician Unavailable Anali Borden Attending Clinician ANALI BOYKIN Attending Clinician Unavailable Monie Saleem RN Attending Clinician Unavailable Pob, [facility] Main Attending Clinician Unavailable Seth Roca MD Attending Clinician Only, [facility] Test Attending Clinician Unavailable Venkat Stark MD Attending Clinician Jaret Webb MD Attending Clinician JARET WEBB Attending Clinician Unavailable Sun Hamilton Attending Clinician Jimbo Sommers MD Attending Clinician DR GILMA FONTANEZ Attending Clinician Unavailable SETH ROCA Admitting Clinician Unavailable Seth Roca MD Admitting Clinician DR GILMA FONTANEZ Admitting Clinician Unavailable Payers Payer Name Policy Type Policy Number Effective Date Expiration Date Edward dubois [facility] [id number] 2018 00:00:00 PLUS Problems Condition Condition Condition [...] encounter automatic ally from request for surgery [id number] No known No known Disease Unive rs active active ity of problems problems [facility] Severe Severe Problem Active Common anxiety anxiety Spirit - [facility] Current Current Problem Active Common moderate moderate Spirit episode of episode of - [facility] major major St depressive depressive Keyla kes disorder disorder Medica l without without Center prior prior episode episode Bipolar Bipolar Problem Active Common affective affective Spir it disorder, disorder, - CH I current current episode episode [facility] mixed, mixed, Medical current current Center episode episode severity severity unspecifie unspecifie d d Pain of Pain of Problem Active Common joint of joint of Spirit left ankle left ankle - [facility] and foot and foot [facility] Closed Closed Problem Active Common nondisplac nondisplac Sp jomar ed ed - CHI fracture fracture St of lateral of lateral Keyla kes malleolus malleolus Medi abisai of left of left Center fibula, fibula, initial initial encounter encounter Closed Closed Problem Active Common nondisplac nondisplac Sp jomar ed ed - CHI fracture fracture St of lateral of lateral Keyla kes malleolus malleolus Medi abisai of left of left Center fibula fibula with with routine routine healing healing Left Left Problem Active Common sciatic sciatic Spirit nerve pain nerve pain - [facility] Allergies, Adverse Reactions, Alerts Allergy Allergy Status Severity Reaction(s) Onset Inactive Treating Comm ents Source Name Type Date Date Clinician Tramadol Propensi Active Nausea 2017-11 Univer s ty to and/or 05 ity of adverse Vomiting 00:00: [place] reaction 00 [facility] s Branch TRAMADOL DRUG Active ITCHING 2017-11 Univers INGREDI 1-05 ity of 00:00: [place] 00 [facility] Toradol DA Active Unknown [place] 11-28 Medical 00:00: [place] 00 Neuronti DA Active Unknown [facility] 11-28 Medical 00:00: [place] 00 Naproxen DA Active Unknown [facility] 11-28 Medical 00:00: [place] 00 Social History Social Habit Start Date Stop Date Quantity Comments Source History of tobacco Cigarette Smoker University of use [facility] Exposure to Not sure University of SARS-CoV-2 (event) [facility] Cigarettes smoked 2020-09-29 2020-09-29 Univers ity of current (pack per 00:00:00 00:00:00 [facility] ) - Reported Branch Tobacco use and 2020-09-29 2020-09-29 Never used Universit y of exposure 00:00:00 00:00:00 [facility] Alcohol intake 2020-09-29 2020-09-29 University of 00:00:00 00:00:00 [facility] Tobacco Comment 2020-09-09 2020-09-09 1 pack/3 days Univer sity of 00:00:00 00:00:00 [place] [facility] History SDOH 2020-09-06 2020-09-06 1 University o f Alcohol Frequency 00:00:00 00:00:00 [facility] edical Branch History SDMO 2020-09-06 2020-09-06 99 University o f Alcohol Std Drinks 00:00:00 00:00:00 [facility] History SDMO 2020-09-06 2020-09-06 1 University o f Alcohol Binge 00:00:00 00:00:00 [facility] Branch Sex [birth year] Universit y of 00:00:00 00:00:00 [facility] Smoking Status Start Date Stop Date Source Current every day smoker 2020-09-29 00:00:00 Uni versity of [facility] Unknown if ever smoked [facility] Medications Ordered Filled Start Stop [...] 1000mL at 42 Unive rs ringers IV 11-1202 mL/hr, ity of infusion 14:30: 14:30 1,000 [...] s: acute pain clindamycin 2019- 2020- No [id number] 300mg Take 2 Univers 150 mg 0-27 11-07 capsules ity of capsule 00:00: 05:59 by mouth 4 Tim as 00 :00 (four) Medical times Branch daily for 10 days. clindamycin 2019- 2020- No [id number] 300mg Take 2 Univers 150 mg 0-27 11-07 capsules ity of capsule 00:00: 05:59 by mouth 4 Tim as 00 :00 (four) Medical times Branch daily for 10 days. clindamycin 2019- 2020- No [id number] 300mg Take 2 Univers 150 mg 0-27 11-07 capsules ity of capsule 00:00: 05:59 by mouth 4 Tim as 00 :00 (four) Medical times Branch daily for 10 days. clindamycin 2019- 2020- No [id number] 300mg Take 2 Univers 150 mg 0-27 11-07 capsules ity of capsule 00:00: 05:59 by mouth 4 Tim as 00 :00 (four) Medical times Branch daily for 10 days. clindamycin 2019- 2020- No [id number] 300mg Take 2 Univers 150 mg 0-27 11-07 capsules ity of capsule 00:00: 05:59 by mouth 4 Tim as 00 :00 (four) Medical times Branch daily for 10 days. clindamycin 2019- 2020- No [id number] 300mg Take 2 Univers 150 mg 0-27 11-07 capsules ity of capsule 00:00: 05:59 by mouth 4 Tim as 00 :00 (four) Medical times Branch daily for 10 days. clindamycin 2019- 2020- No [id number] 300mg Take 2 Univers 150 mg 0-27 11-07 capsules ity of capsule 00:00: 05:59 by mouth 4 [place] as 00 :00 (four) Medical times Branch daily for 10 days. clindamycin 2019- 2020- No [id number] 300mg Take 2 Univers 150 mg 0-27 11-07 capsules ity of capsule 00:00: 05:59 by mouth 4 Tim as 00 :00 (four) Medical times Branch daily for 10 days. clindamycin 2019- 2020- No [id number] 300mg Take 2 Univers 150 mg 0-27 11-07 capsules ity of capsule 00:00: 05:59 by mouth 4 Tim as 00 :00 (four) Medical times Branch daily for 10 days. divalproex 2020-1 Yes 500mg Take 500 Un tin 500 mg EC 0-22 mg by ity of tablet 00:00: mouth (two) Medical times Branch daily. hydrOXYzine 2020-1 [...] mouth (two) Medical times Branch daily. hydrOXYzine 2020-1 [...] mg by ity of tablet 00:00: mouth [place] (two) Medical times Branch daily. hydrOXYzine 2020-1 [...] mouth (two) Medical times Branch daily. hydrOXYzine 2020-1 Yes TAKE 1 Univ ers 50 mg 0-22 CAPSULE BY ity of capsule 00:00: MOUTH THREE Medical TIMES Branch DAILY NEEDED FOR ACUTE ANXIETY traZODone 2020-1 Yes TAKE 1 TO Uni vers 100 mg 0-22 2 TABLETS ity of tablet 00:00: BY MOUTH [place] EVERY DAY Medical AT BEDTIME Branch DIRECTED NEEDED FOR INSOMNIA divalproex 2020-1 Yes 500mg Take 500 Un tin 500 mg EC 0-22 mg by ity of tablet 00:00: mouth [place] (two) Medical times Branch daily. hydrOXYzine 2020-1 Yes TAKE 1 Univ ers 50 mg 0-22 CAPSULE BY ity of capsule 00:00: MOUTH [place] [facility] Medical TIMES [place] DAILY NEEDED FOR ACUTE ANXIETY traZODone 2020-1 Yes TAKE 1 TO Uni vers 100 mg 0-22 2 TABLETS ity of tablet 00:00: BY MOUTH [place] EVERY DAY Medical AT BEDTIME Branch DIRECTED NEEDED FOR INSOMNIA divalproex 2020-1 Yes 500mg Take 500 Un tin 500 mg EC 0-22 mg by ity of tablet 00:00: mouth [place] ([facility]) Medical times Branch daily. hydrOXYzine 2020- Yes TAKE 1 Univ ers 50 mg 0-22 CAPSULE BY ity of capsule 00:00: [facility] Medical TIMES [place] DAILY NEEDED FOR ACUTE ANXIETY traZODone 2020-1 Yes TAKE 1 TO Uni vers 100 mg 0-22 2 TABLETS ity of tablet 00:00: BY MOUTH [place] EVERY DAY Medical AT BEDTIME Branch DIRECTED NEEDED FOR INSOMNIA divalproex 2020-1 Yes 500mg Take 500 Un tin 500 mg EC 0-22 mg by ity of tablet 00:00: mouth [address] [place] [address] (two) Medical times [place] daily. hydrOXYzine 2020-1 Yes TAKE 1 Univ ers 50 mg 0-22 CAPSULE BY ity of capsule 00:00: [facility] Medical TIMES [place] DAILY NEEDED FOR ACUTE ANXIETY traZODone 2020-1 Yes TAKE 1 TO Uni vers 100 mg 0-22 2 TABLETS ity of tablet 00:00: BY MOUTH [place] EVERY DAY Medical AT BEDTIME Branch DIRECTED NEEDED FOR INSOMNIA divalproex 2020-1 Yes 500mg Take 500 Un tin 500 mg EC 0-22 mg by ity of tablet 00:00: mouth [place] (two) Medical times Branch daily. hydrOXYzine 2020-1 Yes TAKE 1 Univ ers 50 mg 0-22 CAPSULE BY ity of capsule 00:00: MOUTH [place] [facility] Medical TIMES Branch DAILY NEEDED FOR ACUTE ANXIETY traZODone 2020-1 Yes TAKE 1 TO Uni vers 100 mg 0-22 2 TABLETS ity of tablet 00:00: BY MOUTH [place] EVERY DAY Medical AT BEDTIME Branch DIRECTED NEEDED FOR INSOMNIA divalproex 2020-1 Yes 500mg Take 500 Un tin 500 mg EC 0-22 mg by ity of tablet 00:00: mouth [place] (two) Medical times Branch daily. hydrOXYzine 2020- Yes TAKE 1 Univ ers 50 mg 0-22 CAPSULE BY ity of capsule 00:00: MOUTH [place] [facility] Medical TIMES [place] DAILY NEEDED FOR ACUTE ANXIETY traZODone 2020- Yes TAKE 1 TO Uni vers 100 mg 0-22 2 TABLETS ity of tablet 00:00: BY MOUTH [place] EVERY DAY Medical AT BEDTIME Branch DIRECTED NEEDED FOR INSOMNIA divalproex 2020-1 Yes 500mg Take 500 Un tin 500 mg EC 0-22 mg by ity of tablet 00:00: mouth [place] (two) Medical times Branch daily. hydrOXYzine 2020- Yes TAKE 1 Univ ers 50 mg 0-22 CAPSULE BY ity of capsule 00:00: [facility] Medical TIMES [place] DAILY NEEDED FOR ACUTE ANXIETY traZODone 2020-1 Yes TAKE 1 TO Uni vers 100 mg 0-22 2 TABLETS ity of tablet 00:00: BY MOUTH [place] EVERY DAY Medical AT BEDTIME Branch DIRECTED NEEDED FOR INSOMNIA divalproex 2020-1 Yes 500mg Take 500 Un tin 500 mg EC 0-22 mg by ity of tablet 00:00: [facility] [place] (two) Medical times Branch daily. hydrOXYzine 2020-1 Yes TAKE 1 Univ ers 50 mg 0-22 CAPSULE BY ity of capsule 00:00: [facility] Medical TIMES [place] DAILY NEEDED FOR ACUTE ANXIETY traZODone 2020-1 Yes TAKE 1 TO Uni vers 100 mg 0-22 2 TABLETS ity of tablet 00:00: BY MOUTH [place] EVERY DAY Medical AT BEDTIME Branch DIRECTED NEEDED FOR INSOMNIA divalproex 2020-1 Yes 500mg Take 500 Un tin 500 mg EC 0-22 mg by ity of tablet 00:00: mouth [place] (two) Medical times Branch daily. hydrOXYzine 2020- Yes TAKE 1 Univ ers 50 mg 0-22 CAPSULE BY ity of capsule 00:00: MOUTH [place] [facility] Medical TIMES Branch DAILY NEEDED FOR ACUTE ANXIETY traZODone 2020-1 Yes TAKE 1 TO Uni vers 100 mg 0-22 2 TABLETS ity of tablet 00:00: BY [facility] EVERY DAY Medical AT BEDTIME Branch DIRECTED NEEDED FOR INSOMNIA divalproex 2020-1 Yes 500mg Take 500 Un tin 500 mg EC 0-22 mg by ity of tablet 00:00: [facility] [place] ([facility]) Medical times [place] daily. hydrOXYzine 2020- Yes TAKE 1 Univ ers 50 mg 0-22 CAPSULE BY ity of capsule 00:00: [facility] Medical TIMES [place] DAILY NEEDED FOR ACUTE ANXIETY traZODone 2020-1 Yes TAKE 1 TO Uni vers 100 mg 0-22 2 TABLETS ity of tablet 00:00: BY [facility] EVERY DAY Medical AT BEDTIME Branch DIRECTED NEEDED FOR INSOMNIA divalproex 2020-1 Yes 500mg Take 500 Un tin 500 mg EC 0-22 mg by ity of tablet 00:00: [facility] [place] ([facility]) Medical times [place] daily. hydrOXYzine 2020- Yes TAKE 1 Univ ers 50 mg 0-22 CAPSULE BY ity of capsule 00:00: [facility] Medical TIMES [place] DAILY NEEDED FOR ACUTE ANXIETY traZODone 2020-1 Yes TAKE 1 TO Uni vers 100 mg 0-22 2 TABLETS ity of tablet 00:00: BY [facility] EVERY DAY Medical AT BEDTIME Branch DIRECTED NEEDED FOR INSOMNIA divalproex 2020-1 Yes 500mg Take 500 Un tin 500 mg EC 0-22 mg by ity of tablet 00:00: [address] ([facility]) Medical times Branch daily. hydrOXYzine 2020-1 Yes TAKE 1 Univ ers 50 mg 0-22 CAPSULE BY ity of capsule 00:00: [facility] Medical TIMES [place] DAILY NEEDED FOR ACUTE ANXIETY traZODone 2020-1 Yes TAKE 1 TO Uni vers 100 mg 0-22 2 TABLETS ity of tablet 00:00: BY [facility] EVERY DAY Medical AT BEDTIME Branch DIRECTED NEEDED FOR INSOMNIA divalproex 2020-1 Yes 500mg Take 500 Un tin 500 mg EC 0-22 mg by ity of tablet 00:00: [address] ([facility]) Medical times [place] daily. hydrOXYzine 2020-1 Yes TAKE 1 Univ ers 50 mg 0-22 CAPSULE BY ity of capsule 00:00: MOUTH [place] [facility] Medical TIMES [place] DAILY NEEDED FOR ACUTE ANXIETY traZODone 2020-1 Yes TAKE 1 TO Uni vers 100 mg 0-22 2 TABLETS ity of tablet 00:00: BY [facility] EVERY DAY Medical AT BEDTIME Branch DIRECTED NEEDED FOR INSOMNIA divalproex 2020-1 Yes 500mg Take 500 Un tin 500 mg EC 0-22 mg by ity of tablet 00:00: mouth [place] ([facility]) Medical times Branch daily. hydrOXYzine 2020- Yes TAKE 1 Univ ers 50 mg 0-22 CAPSULE BY ity of capsule 00:00: MOUTH [place] [facility] Medical TIMES [place] DAILY NEEDED FOR ACUTE ANXIETY traZODone 2020-1 Yes TAKE 1 TO Uni vers 100 mg 0-22 2 TABLETS ity of tablet 00:00: BY MOUTH [place] EVERY DAY Medical AT BEDTIME Branch DIRECTED NEEDED FOR INSOMNIA divalproex 2020-1 Yes 500mg Take 500 Un tin 500 mg EC 0-22 mg by ity of tablet 00:00: [address] ([facility]) Medical times Branch daily. hydrOXYzine 2020-1 Yes TAKE 1 Univ ers 50 mg 0-22 CAPSULE BY ity of capsule 00:00: [facility] Medical TIMES [place] DAILY NEEDED FOR ACUTE ANXIETY traZODone 2020-1 Yes TAKE 1 TO Uni vers 100 mg 0-22 2 TABLETS ity of tablet 00:00: BY [facility] EVERY DAY Medical AT BEDTIME Branch DIRECTED NEEDED FOR INSOMNIA divalproex 2020-1 Yes 500mg Take 500 Un tin 500 mg EC 0-22 mg by ity of tablet 00:00: [address] (two) Medical times Branch daily. hydrOXYzine 2020-1 Yes TAKE 1 Univ ers 50 mg 0-22 CAPSULE BY ity of capsule 00:00: [facility] THREE Medical TIMES [place] DAILY NEEDED FOR ACUTE ANXIETY traZODone 2020-1 Yes TAKE 1 TO Uni vers 100 mg 0-22 2 TABLETS ity of tablet 00:00: BY [facility] EVERY DAY Medical AT BEDTIME Branch DIRECTED NEEDED FOR INSOMNIA divalproex 2020-1 Yes 500mg Take 500 Un tin 500 mg EC 0-22 mg by ity of tablet 00:00: mouth [address] [place] [address] (two) Medical times Branch daily. hydrOXYzine 2020-1 Yes TAKE 1 Univ ers 50 mg 0-22 CAPSULE BY ity of capsule 00:00: [facility] Medical TIMES Branch DAILY NEEDED FOR ACUTE ANXIETY traZODone 2020- Yes TAKE 1 TO Uni vers 100 mg 0-22 2 TABLETS ity of tablet 00:00: BY [facility] EVERY DAY Medical AT BEDTIME Branch DIRECTED NEEDED FOR INSOMNIA divalproex 2020- Yes 500mg Take 500 Un tin 500 mg EC 0-22 mg by ity of tablet 00:00: [facility] [place] ([facility]) Medical times Branch daily. hydrOXYzine 2019- Yes TAKE 1 Univ ers 50 mg 0-22 CAPSULE BY ity of capsule 00:00: [facility] THREE Medical TIMES Branch DAILY NEEDED FOR ACUTE ANXIETY traZODone 2019- Yes TAKE 1 TO Uni vers 100 mg 0-22 2 TABLETS ity of tablet 00:00: BY [facility] EVERY DAY Medical AT BEDTIME Branch DIRECTED NEEDED FOR INSOMNIA divalproex 2019- Yes 500mg Take 500 Un tin 500 mg EC 0-22 mg by ity of tablet 00:00: [facility] [place] ([facility]) Medical times Branch daily. hydrOXYzine 2019- Yes TAKE 1 Univ ers 50 mg 0-22 CAPSULE BY ity of capsule 00:00: [facility] THREE Medical TIMES [place] DAILY NEEDED FOR ACUTE ANXIETY traZODone 2019- Yes TAKE 1 TO Uni vers 100 mg 0-22 2 TABLETS ity of tablet 00:00: BY [facility] EVERY DAY Medical AT BEDTIME Branch DIRECTED NEEDED FOR INSOMNIA divalproex 2020- Yes 500mg Take 500 Un tin 500 mg EC 0-22 mg by ity of tablet 00:00: [address] (two) Medical times Branch daily. hydrOXYzine 2019- Yes TAKE 1 Univ ers 50 mg 0-22 CAPSULE BY ity of capsule 00:00: [facility] THREE Medical TIMES Branch DAILY NEEDED FOR ACUTE ANXIETY traZODone 2020- Yes TAKE 1 TO Uni vers 100 mg 0-22 2 TABLETS ity of tablet 00:00: BY [facility] EVERY DAY Medical AT BEDTIME Branch DIRECTED NEEDED FOR INSOMNIA divalproex 2020- Yes 500mg Take 500 Un tin 500 mg EC 0-22 mg by ity of tablet 00:00: [address] (two) Medical times Branch daily. hydrOXYzine 2019- Yes TAKE 1 Univ ers 50 mg 0-22 CAPSULE BY ity of capsule 00:00: MOUTH [place] [facility] Medical TIMES Branch DAILY NEEDED FOR ACUTE ANXIETY traZODone 2020- Yes TAKE 1 TO Uni vers 100 mg 0-22 2 TABLETS ity of tablet 00:00: BY MOUTH [place] EVERY DAY Medical AT BEDTIME Branch DIRECTED NEEDED FOR INSOMNIA divalproex 2020- Yes 500mg Take 500 Un tin 500 mg EC 0-22 mg by ity of tablet 00:00: mouth [address] [place] [address] ([facility]) Medical times Branch daily. hydrOXYzine 2019- Yes TAKE 1 Univ ers 50 mg 0-22 CAPSULE BY ity of capsule 00:00: [facility] THREE Medical TIMES Branch DAILY NEEDED FOR ACUTE ANXIETY traZODone 2019- Yes TAKE 1 TO Uni vers 100 mg 0-22 2 TABLETS ity of tablet 00:00: BY MOUTH [place] EVERY DAY Medical AT BEDTIME Branch DIRECTED NEEDED FOR INSOMNIA divalproex 2020- Yes 500mg Take 500 Un tin 500 mg EC 0-22 mg by ity of tablet 00:00: mouth [place] ([facility]) Medical times Branch daily. hydrOXYzine 2019- Yes TAKE 1 Univ ers 50 mg 0-22 CAPSULE BY ity of capsule 00:00: [facility] THREE Medical TIMES [place] DAILY NEEDED FOR ACUTE ANXIETY traZODone 2019- Yes TAKE 1 TO Uni vers 100 mg 0-22 2 TABLETS ity of tablet 00:00: BY [facility] EVERY DAY Medical AT BEDTIME Branch DIRECTED NEEDED FOR INSOMNIA divalproex 2020-1 Yes 500mg Take 500 Un tin 500 mg EC 0-22 mg by ity of tablet 00:00: [address] ([facility]) Medical times Branch daily. hydrOXYzine 2019- Yes TAKE 1 Univ ers 50 mg 0-22 CAPSULE BY ity of capsule 00:00: [facility] THREE Medical TIMES Branch DAILY NEEDED FOR ACUTE ANXIETY traZODone 2020-1 Yes TAKE 1 TO Uni vers 100 mg 0-22 2 TABLETS ity of tablet 00:00: BY MOUTH [place] EVERY DAY Medical AT BEDTIME Branch DIRECTED NEEDED FOR INSOMNIA divalproex 2020-1 Yes 500mg Take 500 Un tin 500 mg EC 0-22 mg by ity of tablet 00:00: mouth [address] [place] [address] (two) Medical times Branch daily. hydrOXYzine 2020-1 Yes TAKE 1 Univ ers 50 mg 0-22 CAPSULE BY ity of capsule 00:00: MOUTH [place] THREE Medical TIMES Branch DAILY NEEDED FOR ACUTE ANXIETY traZODone 2020-1 Yes TAKE 1 TO Uni vers 100 mg 0-22 2 TABLETS ity of tablet 00:00: BY MOUTH [place] EVERY DAY Medical AT BEDTIME Branch DIRECTED NEEDED FOR INSOMNIA divalproex 2020-1 Yes 500mg Take 500 Un tin 500 mg EC 0-22 mg by ity of tablet 00:00: mouth [place] (two) Medical times Branch daily. hydrOXYzine 2020-1 Yes TAKE 1 Univ ers 50 mg 0-22 CAPSULE BY ity of capsule 00:00: MOUTH [place] THREE Medical TIMES Branch DAILY NEEDED FOR ACUTE ANXIETY traZODone 2020-1 Yes TAKE 1 TO Uni vers 100 mg 0-22 2 TABLETS ity of tablet 00:00: BY MOUTH [place] EVERY DAY Medical AT BEDTIME Branch DIRECTED NEEDED FOR INSOMNIA divalproex 2020-1 Yes 500mg Take 500 Un tin 500 mg EC 0-22 mg by ity of tablet 00:00: mouth [place] (two) Medical times Branch daily. hydrOXYzine 2020-1 Yes TAKE 1 Univ ers 50 mg 0-22 CAPSULE BY ity of capsule 00:00: MOUTH [place] THREE Medical TIMES Branch DAILY NEEDED FOR ACUTE ANXIETY traZODone 2020-1 Yes TAKE 1 TO Uni vers 100 mg 0-22 2 TABLETS ity of tablet 00:00: BY MOUTH [place] EVERY DAY Medical AT BEDTIME Branch DIRECTED NEEDED FOR INSOMNIA divalproex 2020-1 Yes 500mg Take 500 Un tin 500 mg EC 0-22 mg by ity of tablet 00:00: mouth [place] (two) Medical times Branch daily. hydrOXYzine 2020-1 Yes TAKE 1 Univ ers 50 mg 0-22 CAPSULE BY ity of capsule 00:00: MOUTH [place] THREE Medical TIMES Branch DAILY NEEDED FOR ACUTE ANXIETY traZODone 2020-1 Yes TAKE 1 TO Uni vers 100 mg 0-22 2 TABLETS ity of tablet 00:00: BY MOUTH [place] EVERY DAY Medical AT BEDTIME Branch DIRECTED NEEDED FOR INSOMNIA ondansetron 2020-0 2020- No 4mg 4 mg, Slow Univers (ZOFRAN 7-29 07-29 IV Push, ity of (PF)) 14:15: 13:25 ONCE, 1 [place] injection 4 00 :00 dose, Sat Med ical mg 06/08/20 at Branch 0915, [facility] morpHINE 2019- No 4mg 4 mg, Slow Un tin injection 4 06-08 IV Push, ity of mg 14:15: 13:25 ONCE, 1 [place] 00 :00 dose, [facility] Medical 06/08/20 at Branch 0915, STAT LORazepam 2018- No 2mg 2 mg, Univer s (ATIVAN) 07-17 Oral, ity of tablet 2 mg 00:34: 00:37 [place] dose, [facility] 07/16/19 at Branch 1945, [facility] LORazepam 2018- No 2mg 2 mg, Univer s (ATIVAN) 07-16 Oral, ity of tablet 2 mg 20:56: 21:02 [place]CE, 1 [place] dose, [facility] 07/16/19 at [place] 1600, [facility] Tylenol # 3 Tylenol # 3 2018- No Mac one tab Common 5- 07-27 [place] Spirit 00:00: 00:00 - [facility] 00 :00 [facility] Acetaminoph Acetaminoph Yes Mac not Common en-Codeine en-Codeine O[place]io defined [facility] #3 #3 - [facility] Lorazepam Lorazepam Yes Mac 1 tablet Common [place]io at bedtime [facility] as needed [facility] No known No Univers medications [facility] No known No [facility] No Univers medications [facility] Effexor Effexor Yes Mac 1 tablet Com mon [place] with food [facility] Klonopin Klonopin Yes Mac 1 tablet C ommon [place] at bedtime [facility] Zoloft Zoloft Yes Mac 2 tab Common [place] [facility] Depakote Depakote Yes Mac not Commo n [place]io defined [facility] Vital Signs Vital Name Observation Time Observation Value Comments Source Systolic blood 2020-09-29 19:53:00 118 mm[Hg] Univer sity of pressure [place] [facility] Diastolic blood 2020-09-29 19:53:00 77 mm[Hg] Unive rsity of pressure [place] [facility] Heart rate 2020-09-29 19:53:00 79 /min Universi ty of [facility] Body height 2020-09-29 19:53:00 166.4 cm Universi ty of [place] [facility] Systolic blood 2020-09-12 20:05:00 136 mm[Hg] Univer sity of pressure [place] [facility] Diastolic blood 2020-09-12 20:05:00 85 mm[Hg] Unive rsity of pressure [place] [facility] Heart rate 2020-09-12 20:05:00 51 /min Universi ty of [facility] Body temperature 2020-09-12 20:05:00 36.67 [place] Univ ersity of [facility] Respiratory rate 2020-09-12 20:05:00 19 /min Univ ersity of [facility] Oxygen saturation in 2020-09-12 20:05:00 100 /min University of Arterial blood by [facility] Pulse oximetry Branch Body height 2020-09-08 15:11:00 165.1 cm Universi ty of [place] [facility] Body weight 2020-09-08 15:11:00 61.2 kg Universi ty of [place] [facility] BMI 2020-09-08 15:11:00 22.45 kg/m2 Universi ty of [facility] Systolic blood 2020-09-06 16:15:00 115 mm[Hg] Univer sity of pressure [facility] Diastolic blood 2020-09-06 16:15:00 80 mm[Hg] Unive rsity of pressure [facility] Heart rate 2020-09-06 16:15:00 69 /min Universi ty of [place] [facility] Body height 2020-09-06 16:15:00 165.1 cm Universi ty of [place] [facility] Body weight 2020-09-06 16:15:00 61.236 kg Universi ty of [place] [facility] BMI 2020-09-06 16:15:00 22.47 kg/m2 Universi ty of [facility] Systolic blood 2020-06-08 12:56:00 120 mm[Hg] Univer sity of pressure [place] [facility] Diastolic blood 2020-06-08 12:56:00 79 mm[Hg] Unive rsity of pressure [facility] Heart rate 2020-06-08 12:56:00 76 /min [facility] Body temperature 2020-06-08 12:56:00 36.67 Sharona [facility] [place] [facility] Respiratory rate 2020-06-08 12:56:00 16 /min [facility] Body weight 2020-06-08 12:56:00 68.04 kg [facility] BMI 2020-06-08 12:56:00 24.96 kg/m2 [facility] Oxygen saturation in 2020-06-08 12:56:00 98 /min [facility] Arterial blood by [place] aCon abisai Pulse oximetry Branch Systolic blood 2020-04-06 16:00:00 126 mm[Hg] [facility]iver [facility] [place] [facility] Diastolic blood 2020-04-06 16:00:00 71 mm[Hg] Unive [facility]ity [facility] Heart rate 2020-04-06 16:00:00 74 /min [facility] Body temperature 2020-04-06 16:00:00 37.22 Sharona [facility] [place] [facility] Respiratory rate 2020-04-06 16:00:00 20 /min [facility] Body height 2020-04-06 16:00:00 165.1 cm [facility] Body weight 2020-04-06 16:00:00 68.04 kg [facility] BMI 2020-04-06 16:00:00 24.96 kg/m2 [facility] Oxygen saturation in 2020-04-06 16:00:00 100 /min [facility] [place] by [place] [facility] abisai Pulse oximetry Branch Systolic blood 2019-07-17 00:00:00 132 mm[Hg] [facility] [place] [facility] Diastolic blood 2019-07-17 00:00:00 76 mm[Hg] Unive [facility] Heart rate 2019-07-17 00:00:00 66 /min [facility] Respiratory rate 2019-07-17 00:00:00 18 /min [facility] [place] [facility] Oxygen saturation in 2019-07-17 00:00:00 98 /min [facility] of [place] by [place] aCon abisai Pulse oximetry Branch Body temperature 2019-07-16 20:03:00 36.78 Sharona [facility] [place] [facility] Body weight 2019-07-16 20:02:00 79.379 kg [facility] Weight 2013-04-14 00:39:00 752.96 KG Height 2013-04-14 00:39:00 165.1 CM Procedures Procedure Date / Time Performing Clinician Source Performed NOTICE OF PRIVACY 2021-07-02 19:00:14 Doctor Unassigned, No [facility] PRACTICES [facility] CONSENT/REFUSAL FOR 2021-07-02 18:59:56 [facility] XR FINGERS 2 VW RIGHT 2020-09-29 18:46:22 Seth Roca [facility] [place] TIME OR 2020-09-12 19:39:39 Seth Roca [facility] (NON-REPORTABLE) [facility] [place] TIME OR 2020-09-12 19:20:07 Seth Roca [facility] (NON-REPORTABLE) [facility] DAY SURGERY - ADC 2020-09-12 06:01:00 Doctor Unassigned, No [facility] XR CHEST 2 VW 2020-09-09 19:40:29 Seth Roca [facility] CONSENT/REFUSAL FOR 2020-09-09 19:21:16 Doctor Un[facility]igned, [facility] ASSIGNMENT OF BENEFITS 2020-09-09 19:18:53 Doctor Unassigned, No [facility] DSU PRE-OP 2020-09-08 05:01:00 Doctor Unassigned, No [facility] ASSIGNMENT OF BENEFITS 2020-09-06 16:09:16 Doctor Unassigned, No [facility] POCT TEST 2020-06-08 13:22:00 Jaret Webb [facility] LIPASE 2020-06-08 13:22:00 Jaret Webb [facility] HEPATIC FUNCTION PANEL 2020-06-08 13:22:00 Jaret Webb [facility] ([id number]) (ALB,T.PRO,BILI [facility] Branch T,BU/BC,ALT,AST,ALK PHOS) BASIC METABOLIC PANEL 2020-06-08 13:22:00 Jaret Webb [facility] (NA, K, CL, CO2, Medical Branch GLUCOSE, BUN, CREATININE, CA) CBC WITH DIFF 2020-06-08 13:22:00 Tracey [facility] URINALYSIS 2020-06-08 13:22:00 Tracey [facility] RAPID STREP SCREEN FOR 2020-04-06 16:23:00 Sun Castro [facility] GROUP A Medical Branch NOTICE OF PRIVACY 2020-04-06 15:48:09 Doctor Unassigned, No [facility] PRACTICES Name Medical Branch CONSENT/REFUSAL FOR 2020-04-06 15:47:58 Doctor Un[facility]igned, No [facility] Name [facility] FREE T4 2019-07-16 20:51:00 Matthieu Jimbo [facility] THYROID STIMULATING 2019-07-16 20:51:00 Jimbo Sommers [facility] HORMONE [facility] HEPATIC FUNCTION PANEL 2019-07-16 20:51:00 Jimbo Sommers [facility] ([id number]) (ALB,T.PRO,BILI [facility] Branch T,BU/BC,ALT,AST,ALK PHOS) BASIC METABOLIC PANEL 2019-07-16 20:51:00 Matthieu Jimbo [facility] (NA, K, CL, CO2, Medical Branch GLUCOSE, BUN, CREATININE, CA) SALICYLATE 2019-07-16 20:51:00 Matthieu Jimbo [facility] ETHANOL 2019-07-16 20:51:00 Matthieu Jimbo [facility] CBC WITH DIFFERENTIAL 2019-07-16 20:51:00 Jimbo Sommers [facility] URINALYSIS 2019-07-16 20:51:00 Matthieu Jimbo [facility] ADC / LCC - DRUG SCREEN 2019-07-16 20:51:00 Jimbo Sommers [facility] TRIAGE [facility] POCT TEST 2019-07-16 20:37:00 Jimbo Sommers [facility] EKG-12 LEAD 2019-07-16 20:28:43 Jimbo Sommers [facility] NOTICE OF PRIVACY 2019-07-16 19:39:12 Doctor Unassigned, No [facility] Name Medical Branch CONSENT/REFUSAL FOR 2019-07-16 19:38:59 Doctor Unassigned, No Un [facility] DIAGNOSIS AND TREATMENT Name Medical Branch SKIN CLOSURE NEC 2013-04-14 00:00:00 [facility] Encounters Start End Encounter Admission Attending Care Care Encounter Source Date/Time Date/Time Type Type Clinicians Facility Department ID 2021-09-11 Emergency [facility] [id number] Univers 17:13:34 ity of [facility] 2021-09-09 Outpatient R CHANELLE, RUST PADMINI [id number] Univers 01:42:20 SETH ity of [facility] 2021-07-02 2021-07-02 Emergency RUST [id number] Univers 14:21:00 15:17:00 [place] 350.1.13.10 i ty [facility] 4.2.7.2.686 [facility] [id number] [facility] [address] [place] 2021-07-02 2021-07-02 Orders Doctor LUCÍA 1.2.840.114 [id number] 00:00:00 00:00:00 Only Unassigned, CATIE 350.1.13.10 [place] [facility] 4.2.7.2.686 [id number] Formerly named [facility] 2021-07-02 2021-07-02 Orders Doctor LUCÍA 1.2.840.114 [id number] Univers 00:00:00 00:00:00 Only Unassigned, CATIE 350.1.13.10 [facility] [place] [facility] 4.2.7.2.686 Tim as [phone] [address] 2020-10-25 2020-10-25 [facility]phone [facility] [id number] 00:00:00 00:00:00 [employer] 350.1.13.10 Surgical 4.2.7.2.686 Specialti [phone] [address] 2020-10-25 2020-10-25 Telephone [facility] 1.2.119.959 [id number] Univers 00:00:00 00:00:00 [employer] 350.1.13.10 it y of Surgical 4.2.7.2.686 Tim as Specialti [phone] Oh dical es [address] [place] [address] 2020-10-17 2020-10-17 [facility]patient [facility] [id number] Univers 14:00:00 14:00:00 ANALI rebekah [facility] 2020-10-14 2020-10-14 Telephone [facility] [id number] 00:00:00 00:00:00 Anali S PRIMARY [id number] CARE 4.2.7.2.686 PAVILLION [id number] [facility] 2020-10-14 2020-10-14 Nurse LUCÍA Saleem 1.2.840.114 [id number] 00:00:00 00:00:00 Triage Monie CATIE 350.1.13.10 HOSPITAL 4.2.7.2.686 [id number] 2020-10-14 2020-10-14 [facility] 1.2.378.760 [id number] Univers 00:00:00 00:00:00 Anali S PRIMARY 350.1.13.10 it y of [place] [id number] [address] 2020-10-14 2020-10-14 Nurse LUCÍA Saleem 1.2.840.114 [id number] Univers 00:00:00 00:00:00 Triage Monie CATIE 350.1.13.10 it y of HOSPITAL 4.2.7.2.686 Tim as [phone] [address] 2020-10-13 2020-10-13 [facility]patient [facility] [id number] Univers 10:30:00 10:30:00 ANALI [facility] 2020-10-04 2020-10-04 [facility] 1.2.840.114 [id number] 00:00:00 00:00:00 Assessment Anali S Health 350.1.13.10 Surgical 4.2.7.2.686 Specialti [phone] [address] 2020-10-04 2020-10-04 [facility] 1.2.840.114 [id number] Univers 00:00:00 00:00:00 Assessment Anali S Health 350.1.13.10 ity of Surgical 4.2.7.2.686 Tim as Specialti [phone] Oh dical es [address] [facility] 2020-10-03 2020-10-03 [facility] [id number] Univers 14:00:00 14:00:00 [facility] 2020-09-30 2020-09-30 Outpatient [facility] [id number] Univers 08:00:00 08:00:00 [facility] 2020-09-30 2020-09-30 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 2020-09-30 2020-09-30 Telephone [facility] [id number] Univers 00:00:00 00:00:00 Anali S Health 350.1.13.10 it y of Surgical 4.2.7.2.686 Tim as Specialti [phone] Oh dical es [address] [facility] 2020-09-30 2020-09-30 Telephone [facility] 1.2.451.594 [id number] 00:00:00 00:00:00 Anali S Health 350.1.13.10 Surgical 4.2.7.2.686 Specialti [phone] [address] 2020-09-29 2020-09-29 [facility] 1.2.840.114 [id number] Univers 12:28:56 23:59:00 Encounter Seth Shun Gil 350.1.13.10 ity [place] [phone] [facility] [address] [place] 2020-09-29 2020-09-29 Office [facility] 1.2.840.114 [id number] Univers 13:51:51 15:05:33 Visit [facility] 350.1.13.10 it y of Surgical 4.2.7.2.686 Tim as Specialti [id number] Oh dical es [address] [facility] 2020-09-29 2020-09-29 Outpatient [facility] [id number] Univers 13:45:00 13:45:00 ANALI thorpe [facility] 2020-09-29 2020-09-29 Telephone [facility] 1.2.903.155 [id number] Univers 00:00:00 00:00:00 Anali S Health 350.1.13.10 it y of Surgical 4.2.7.2.686 Tim as Specialti [id number] Oh dical es [address] [facility] 2020-09-28 2020-09-28 Telephone [facility] 1.2.840.114 [id number] Univers 00:00:00 00:00:00 Seth L Health 350.1.13.10 it y of Surgical 4.2.7.2.686 Tim as Specialti [id number] Oh dical es [address] [facility] 2020-09-28 2020-09-28 Telephone [facility] 1.2.840.114 [id number] Univers 00:00:00 00:00:00 Seth L Health 350.1.13.10 it y of Surgical 4.2.7.2.686 Tim as Specialti [phone] Oh dical es [address] [facility] 2020-09-27 2020-09-27 [place] [facility] 1.2.724.147 [id number] Univers 00:00:00 00:00:00 Anali S Health 350.1.13.10 it y of Surgical 4.2.7.2.686 Tim as Specialti [phone] Oh dical es 198 [facility] 2020-09-26 2020-09-26 Outpatient [facility] [id number] Univers 16:00:00 16:00:00 ANALI rebekah [facility] 2020-09-26 2020-09-26 Telephone [facility] 1.2.528.312 [id number] Univers 00:00:00 00:00:00 Anali S Health 350.1.13.10 it y of Surgical 4.2.7.2.686 Tim as Specialti [id number] Oh dical es [address] [facility] 2020-09-23 2020-09-23 Outpatient [facility] [id number] Univers 10:15:00 10:15:00 SETH ity of [facility] 2020-09-19 2020-09-19 Telephone [facility] 1.2.840.114 [id number] Univers 00:00:00 00:00:00 Seth Hoffmann [facility] 350.1.13.10 it y of Surgical 4.2.7.2.686 Itm as Specialti [phone] Oh dical es [address] [facility] 2020-09-12 2020-09-12 [facility] 1.2.840.114 [id number] Univers 08:14:00 14:20:00 Encounter Seth Gil 350.1.13.10 ity [place] Surgical [phone] [facility] [address] [place] 2020-09-12 2020-09-12 Orders Doctor LUCÍA 1.2.840.114 [id number] Univers 00:00:00 00:00:00 Only Unassigned, CATIE 350.1.13.10 [place] [facility] 4.2.7.2.686 Tim as [id number] [facility] [address] [place] 2020-09-09 2020-09-09 [facility] 1.2.840.114 [id number] Univers 14:17:36 23:59:00 Encounter Seth Gil 350.1.13.10 ity [place] [phone] [facility] [address] [place] 2020-09-09 2020-09-09 Induction Machine Operator Augustine, Adc Lab Main RUST 1.2.8 40.114 [id number] Univers 14:16:24 14:31:24 Visit Seth Roca 350.1.13.10 ity of [place].2.[place] Profess[place] [phone] Oh dical nal [address] [facility] 2020-09-09 2020-09-09 Laboratory Only, Adc Test RUST 1.2.840. 114 [id number] Univers 14:15:01 14:30:01 Only Venkat Stark 350.1.13.10 ity [place].2.[place] [phone] [facility] [address] [place] 2020-09-09 2020-09-09 Outpatient R CHANELLE [facility] [id number] Univers 14:00:00 14:00:00 SETH ity [facility] 2020-09-08 2020-09-08 Orders Doctor LUCÍA 1.2.840.114 [id number] Univers 00:00:00 00:00:00 Only Unassigned, CATIE 350.1.13.10 [place] of [place] [facility] 4.2.7.2.686 Tim as [id number] [facility] [address] [place] 2020-09-07 2020-09-07 Prep [facility] 1.2.840.114 [id number] Univers 00:00:00 00:00:00 Surgery Seth [facility] 350.1.13.10 it y of Surgical 4.2.7.2.686 Tim as Specialti [phone] Oh dical es [address] [facility] 2020-09-06 2020-09-06 Office Lucretia R[facility] 1.2.840.114 [id number] Univers 11:10:09 11:25:09 Visit [facility] 350.1.13.10 it y of Surgical 4.2.7.2.686 Tim as Specialti [phone] Oh dicmi es 198 [facility] 2020-09-06 2020-09-06 Outpatient [facility] [id number] Univers 10:00:00 10:00:00 ANALI [facility] 2020-09-06 2020-09-06 Orders Doctor CASTREJON 1.2.840.114 [id number] Univers 00:00:00 00:00:00 Only Unassigned, CATIE 350.1.13.10 [place]y of [place] H[facility]PITAL 4.2.7.2.686 Tim as [phone] [facility] [address] [place] 2020-06-08 2020-06-08 Emergency Tracey, TRAUMA 1.2.412.210 [id number] Univers 07:57:26 09:17:00 [facility] 350.1.13.10 it [place] [phone] [facility] 014 Branch 2020-06-08 2020-06-08 Emergency X TRACEY, RUST ERT [id number] Univers 07:57:26 07:57:26 JARET itrebekah of [facility] 2020-04-06 2020-04-06 Emergency Castro, RUST 1.2.840.114 [id number] Univers 11:02:11 12:59:00 Suncaitlin Gil 350.1.13.10 i ty of [place] 4.2.7.2.686 [facility] [id number] [address] 2020-04-06 2020-04-06 Emergency X RUST ERT [id number] Univers 10:49:00 10:49:00 ity of [facility] 2020-04-06 2020-04-06 Orders Doctor CASTREJON 1.2.840.114 [id number] Univers 00:00:00 00:00:00 Only Unassigned, CATIE 350.1.13.10 [facility] 4.2.7.2.686 [facility] [id number] [facility] 009 Branch 2019-07-16 2019-07-16 Emergency [facility] 1.2.140.815 [id number] Univers 15:08:41 20:56:00 Jimbo Gil 350.1.13.10 i ty of [place] 4.2.7.2.686 [facility] [phone] [address] 2019-05-20 2019-05-20 Outpatient [facility] [id number] Common 16:15:00 16:15:00 t [facility] 2019-05-07 2019-05-07 [facility] [id number] Common 15:30:00 15:30:00 t Bone Bone and Spiri t and Joint [facility] 2019-05-07 2019-05-07 [facility] [id number] Common 14:28:00 14:28:00 t Bone Bone and Spiri t and Joint [facility] 2019-05-06 2019-05-06 Outpatient [facility] [id number] Common 11:28:00 11:28:00 t Bone Bone and Spiri t and Joint [facility] 2019-05-05 2019-05-05 [facility] [id number] Common 14:00:00 14:00:00 t Bone Bone and Spiri t and Joint [facility] 2019-04-28 2019-04-28 Outpatient [facility] [id number] Common 09:30:00 09:30:00 t Bone Bone and Spiri t and Joint [facility] 2019-04-24 2019-04-24 Outpatient [facility] [id number] Common 10:53:00 10:53:00 t Bone Bone and Spiri t and Joint [facility] 2019-04-24 2019-04-24 Outpatient [facility] [id number] Common 10:06:00 10:06:00 t Bone Bone and Spiri t and Joint [facility] 2019-01-12 2019-01-12 Outpatient [facility] [id number] Common 10:00:00 10:00:[address] [employer] [address] Family [facility] Family Medicine [facility] 2013-04-14 2013-04-14 Emergency E EST[place], [facility] [id number] [facility] 00:19:00 03:12:00 [facility] Results Test Description Test Test Results Result Source Time Comments Comments XR FINGERS 2 VW 2020-09- HISTORY: ?Pain. Univ ersity of RIGHT 19 FINDINGS: AP and [facility] dical 18:49:48 lateral views of right Br [...] the right middlefinger. [facility], Radiant Results Inft - 09/29/2020 12:50 PM CSTHISTORY: Pain.FINDINGS: AP [...] rsity of (NON-REPORTABLE) 02 require a Radiology [facility] 19:40:57 diagnostic report. Branch [place] TIME OR 2020-09- These images do not Unive rsity of (NON-REPORTABLE) 02 require a Radiology [facility] 19:23:57 diagnostic report. Branch XR CHEST 2 VW 2020-08- No evidence of acute U niversity of 30 cardiopulmonary [place] [facility] 19:56:49 disease.2 VIEWS OF THE Br anch [...] Interpretation Comme nts NA (test code = 8308284791) 136 mmol/L 135-145 K (test code = 2982669648) 4.4 mmol/L 3.5-5 CL (test code = 7505144834) 106 mmol/L 98-108 CO2 TOTAL (test code = 23 mmol/L 23-31 5624998818) AGAP (test code = 1381667451) 2-16 BUN (test code = 7388754403) 14 mg/dL 7-23 GLUCOSE (test code = 1781592337) 91 mg/dL 70-110 CREATININE (test code = 0.59 mg/dL 0.5-1.04 2640285043) CALCIUM (test code = 1203238418) 9.1 mg/dL 8.6-10.6 eGFR Calculation (Non- mL/min/1.73m2 Armenian) (test code = 8633146129) eGFR Calculation ( mL/min/1.73m2 Armenian) (test code = 9128850959) LUCY (test code = LUCY) Association of [...] [facility] (ALB, T.PRO, BILI T, BU/BC, ALT, AST, ALK PHOS)2020-06-08 13:47:00 Test Item Value Reference Range Interpretation Comments TOTAL BILI (test code = 7909637119) 0.3 mg/dL 0.1-1.1 BILI UNCON (test code = 4501198618) 0.5 mg/dL 0.1-1.1 BILI CONJ (test code = 7572129725) 0.0 mg/dL 0-0.3 T PROTEIN (test code = 3234845175) 7.1 g/dL 6.3-8.2 ALBUMIN (test code = 1623381444) 4.2 g/dL 3.5-5 ALK PHOS (test code = 5361849596) 53 U/L 34-122 ALTv (test code = 1742-6) 22 U/L 5-35 AST(SGOT) (test code = 2336962589) 32 U/L 13-40 Lab Interpretation (test code = Normal 32757-0) [facility]uda[facility]ase [id number] 13:47:00 Test Item Value Reference Range Interpretation Comments LIPASE (test code = 5917099381) 142 U/L 0-220 Lab Interpretation (test code = Normal 68742-9) [facility]uda[facility]inalysis2020-07-29 13:47:00 Test Item Value Reference Range Interpretation Comments APPEARANCE (test code = Clear Clear 0379963868) COLOR (test code = Straw Yellow A 6217045923) PH (test code = 4.8-8.0 1047752987) SP GRAVITY (test code = 1.003-1.030 L 2721919403) GLU U QUAL (test code = Normal Normal 2031355270) BLOOD (test code = Negative Negative 5951022327) KETONES (test code = Negative Negative 1937334729) PROTEIN (test code = Negative Negative 2887-8) UROBILIN (test code = Normal Normal 9370558853) BILIRUBIN (test code = Negative Negative 0186081138) NITRITE (test code = Negative Negative 5809529718) LEUK MAYNOR (test code = Negative Negative 7655901842) RBC/HPF (test code = <1 See_Comment [Autom ated message] 7381663926) The system [employer] generated this result transmitted ref erence range: 0 - 3 HP F. The reference range was not used to int erpret this result as normal/abnormal . WBC/HPF (test code = <1 See_Comment [Autom ated message] 0356592935) The system [employer] h generated this result transmitted ref erence range: 0 - 5 HP F. The reference range was not used to int erpret this result as normal/abnormal . BACTERIA (test code = Negative Negative 1534808813) SQ EPITH (test code = <1 See_Comment [Auto mated message] 3521967182) The system [employer] h generated this result transmitted ref erence range: <=2 HPF. The reference range was not used to int erpret this result as normal/abnormal . Lab Interpretation (test Abnormal code = 60800-1) [facility] with [id number] 13:37:00 Test Item Value Reference Range Interpretation [...] RDW-SD (test code = 42.9 fL 39-49.9 53167-2) RDW-CV (test code = 16.6 % 12-15.5 H 788-0) PLT (test code = See_Comment [Automated 777-3) message] The sy stem which generated this result transmitted reference range : 166 - 358 10*3/ ?L. The reference r shantanu was not used to interpret this result as normal/abnormal . MPV (test code = 9.3 fL 9.5-12.9 L 40510-9) NRBC/100 WBC (test See_Comment [Automat ed code = 8595647901) message] The system which generated this result transmitted reference range : 0.0 - 10.0 /100 WBCs. The refer ence range was not u sed to interpret th is result as normal/abnormal . NRBC x10^3 (test code <0.01 See_Comment [Auto mated = 7265397190) message] The s ystem which generated this result transmitted reference range : 10*3/?L. The reference range was not used to interpret this result as normal/abnormal . GRAN MAT (NEUT) % 55.7 % (test code = 770-8) IMM GRAN % (test code 0.20 % = 5450687744) LYMPH % (test code = 30.8 % 736-9) MONO % (test code = 10.2 % 5905-5) EOS % (test code = 2.1 % 713-8) BASO % (test code = 1.0 % 706-2) GRAN MAT x10^3(ANC) 3.40 10*3/uL 1.88-7.09 (test code = 2572716935) IMM GRAN x10^3 (test <0.03 0-0.06 code = 3805062856) LYMPH x10^3 (test code 1.88 10*3/uL 1.32-3.29 = 731-0) MONO x10^3 (test code 0.62 10*3/uL 0.33-0.92 = 742-7) EOS x10^3 (test code = 0.13 10*3/uL 0.03-0.39 711-2) BASO x10^3 (test code 0.06 10*3/uL 0.01-0.07 = 704-7) Lab Interpretation Abnormal (test code = 48997-7) [facility]uda[facility]OM[facility] [id number] 13:22:00 Test Item Value Reference Range Interpretation Comments POCT PREG (test code = 1605) NEGATIVE On board controls acceptable with PRESENT C Line (test code = 3574) POCT PREG LOT # (test code = 3575) [id number] POCT PREG TEST DATE (test 08/10/2021 code = 3576) Lab Interpretation (test code = Normal 10093-8) [facility] BudaRAPID STREP SCREEN FOR GROUP [id number] 16:56:00 Test Item Value Reference Range Interpretation Comments Streptococcus pyogenes (group A) Negative Negative antigen (test code = 21949-8) Lab Interpretation (test code = Normal 59322-1) [facility] BudaUrinalysis2019-09-05 22:17:00 Test Item Value Reference Range Interpretation Comments APPEARANCE (test code = Clear Clear 3357723087) COLOR (test code = Yellow Yellow 4423711163) PH (test code = 4.8-8.0 9262256621) SP GRAVITY (test code = 1.003-1.030 2776408292) GLU U QUAL (test code = Negative Negative 1478024911) BLOOD (test code = Trace Negative A 9968771616) KETONES (test code = Trace Negative A [id number]) PROTEIN (test code = Negative Negative 2887-8) UROBILIN (test code = 0.2 mg/dL See_Comment [Auto mated message] 9746720189) The system 60mo generated this result transmit an reference range : 0-1.0 mg/dL. Th e reference range was not used to interpret this result as normal/abnormal . BILIRUBIN (test code = Small Negative A 4244042189) NITRITE (test code = Negative Negative 4124230216) LEUK MAYNOR (test code = Negative Negative 1356906589) RBC/HPF (test code = See_Comment [Autom ated message] 2564484146) The system 60mo generated this result transmit an reference range : 0 - 3 HPF. The refe rence range was not u sed to interpret th is result as normal/abnormal . WBC/HPF (test code = See_Comment [Autom ated message] 7165084842) The system 60mo generated this result transmit an reference range : 0 - 5 HPF. The refe rence range was not u sed to interpret th is result as normal/abnormal . BACTERIA (test code = Negative Negative 3597439488) AMORPHOUS (test code = Few HPF 7341348014) SQ EPITH (test code = HPF 1921338149) Ictotest (test code = Negative 5090389258) Lab Interpretation (test Abnormal code = 87003-9) [facility] [id number] 22:15:00 Test Item Value Reference Range Interpretation Comments TSH (test code = See_Comment [Automated message] 2988961453) The system 60mo generated this result transmitted ref erence range: 0.45 - 4 .70 mIU/L. The refe rence range was not u sed to interpret this result as normal/abnor mal. Lab Interpretation (test Normal code = 01149-3) [facility] [id number] 22:01:00 Test Item Value Reference Range Interpretation Comments FREE T4 (test code = 4557404172) 1.34 ng/dL 0.78-2.2 Lab Interpretation (test code = Normal 08281-0) [facility] - DRUG SCREEN [id number] 21:59:00 Test Item Value Reference Range Interpretation Comments BENZO U (test code = Presumptive Positive Negative A 9057956773) ILEANA U (test code = Negative Negative 0021918723) AMPHET (test code = Negative Negative 6844530366) THC (test code = Negative Negative 2576463853) METHADONE (test code = Negative Negative 7466484277) Meth U (test code = Negative Negative 0891305347) OPIATES (test code = Negative Negative 2160490989) Cocaine Metabolite (test Presumptive Positive Negative A code = 7696365443) PROPOXY (test code = Negative Negative 9827415721) Tric U (test code = Negative Negative 1591361710) PCP (test code = Negative Negative 4949996274) OXYCOD (test code = Negative Negative 9213059458) LUCY (test code = LUCY) Urine Drug [...] testing). Lab Interpretation (test Abnormal code = 30856-5) [facility] 21:54:00 Test Item Value Reference Range Interpretation Comments ALCOHOL (test code = <10 mg/dL 3318150534) LUCY (test code = LUCY) <10 [id number] Toxic>100 Depression of FISHER CLAM>400 Fatalities Reported [facility]udaSALIC[facility]2019-09-05 21:54:00 Test Item Value Reference Range Interpretation Comments SALICYLATE (test code <10 mg/L = 1735374685) LUCY (test code = LUCY) Therapeutic Range:? Analgesic and Antipyretic Use? 20-100 mg/L? Anti-Inflammatory Use? 100-250 mg/LToxic Range:? Greater than 300 mg/L [facility]udaACETAMINOPHEN2019-09-05 21:54:00 Test Item Value Reference Range Interpretation Comments ACETAMINOP (test code = <10.0 10-30 L 9873524262) LUCY (test code = LUCY) Toxic: Greater than 200 ug/mL @ 4 hour post ingestion or greater than 50 ug/mL @ 12 hour post ingestion Lab Interpretation (test Abnormal code = 95612-7) [facility]uda[facility]atic Function Panel (ALB, T.PRO, BILI T, BU/BC, ALT, AST, ALK PHOS)2019-07-16 21:43:00 Test Item Value Reference Range Interpretation Comments TOTAL BILI (test code = 6051715464) 0.2 mg/dL 0.1-1.1 BILI UNCON (test code = 2699909248) 0.2 mg/dL 0.1-1.1 BILI CONJ (test code = 9395055041) 0.0 mg/dL 0-0.3 T PROTEIN (test code = 1773970884) 7.2 g/dL 6.3-8.2 ALBUMIN (test code = 8814797364) 4.4 g/dL 3.5-5 ALK PHOS (test code = 2068359727) 54 U/L 34-122 ALT(SGPT) (test code = 3969965802) 26 U/L 9-51 AST(SGOT) (test code = 0216528878) 25 U/L 13-40 Lab Interpretation (test code = Normal 21735-9) [facility] Metabolic Panel (NA, K, CL, CO2, GLUCOSE, BUN, CREATININE, CA)2019-07-16 21:42:00 Test Item Value Reference Range Interpretation Comments NA (test code = 148 mmol/L 135-145 H 2486091513) K (test code = 3.4 mmol/L 3.5-5 L 4004521491) CL (test code = 113 mmol/L 98-108 H 3920024939) CO2 TOTAL (test code = 25 mmol/L 23-31 6428779580) AGAP (test code = 2-16 8339772001) BUN (test code = 11 mg/dL 7-23 1513669330) GLUCOSE (test code = 98 mg/dL 70-110 1591994878) CREATININE (test code = 0.78 mg/dL 0.5-1.04 7656483556) CALCIUM (test code = 9.2 mg/dL 8.6-10.6 4634130479) eGFR Calculation mL/min/1.73m2 (Non-) (test code = 1683316977) eGFR Calculation mL/min/1.73m2 () (test code = 9763883411) LUCY (test code = LUCY) Association of [...] tests). Lab Interpretation Abnormal (test code = 70164-4) [facility] WITH [id number] 21:24:00 Test Item Value Reference Range Interpretation [...] (test code = 51.6 fL 39-49.9 H 75323-9) RDW-CV (test code = 20.4 % 12-15.5 H 788-0) PLT (test code = See_Comment [Automated 777-3) message] The sy stem which generated this result transmitted reference range : 166 - 358 10*3/ ?L. The reference r shantanu was not used to interpret this result as normal/abnormal . MPV (test code = 9.2 fL 9.5-12.9 L 05371-3) NRBC/100 WBC (test See_Comment [Automat ed code = 0628237453) message] The system which generated this result transmitted reference range : 0.0 - 10.0 /100 WBCs. The refer ence range was not u sed to interpret th is result as normal/abnormal . NRBC x10^3 (test code <0.01 See_Comment [Auto mated = 3929170852) message] The s ystem which generated this result transmitted reference range : 10*3/?L. The reference range was not used to interpret this result as normal/abnormal . GRAN MAT (NEUT) % 58.7 % (test code = 770-8) IMM GRAN % (test code 0.30 % = 9929464189) LYMPH % (test code = 24.1 % 736-9) MONO % (test code = 15.5 % 5905-5) EOS % (test code = 0.8 % 713-8) BASO % (test code = 0.6 % 706-2) GRAN MAT x10^3(ANC) 2.12 10*3/uL 1.88-7.09 (test code = 5010681981) IMM GRAN x10^3 (test <0.03 0-0.06 code = 4212534586) LYMPH x10^3 (test code 0.87 10*3/uL 1.32-3.29 L = 731-0) MONO x10^3 (test code 0.56 10*3/uL 0.33-0.92 = 742-7) EOS x10^3 (test code = 0.03 10*3/uL 0.03-0.39 711-2) BASO x10^3 (test code <0.03 0.01-0.07 = 704-7) Lab Interpretation Abnormal (test code = 81306-9) [facility] Test, [id number] 20:37:00 Test Item Value Reference Range Interpretation Comments POCT PREG (test code = 1605) negative On board controls acceptable with present C Line (test code = 3574) POCT PREG LOT # (test code = 3575) [id number] POCT PREG TEST DATE (test 11/10/2020 code = 3576) Lab Interpretation (test code = Normal 24165-7) [facility]"
[2022-09-30 16:26] LABS: SARS-COV-2 RT PCR NEGATIVE (NEGATIVE)
--- NOTE | 2022-09-30 17:22 | ER ---
Nurse's Notes [facility] Name: Jennifer Salazar Age: 47 yrs Sex: Female : 1975 Arrival Date: 09/30/2022 Time: 14:09 Bed IW1 Private MD: Diagnosis: Acute upper respiratory infection, unspecified;Chest pain, unspecified;Acute pain, not elsewhere classified Presentation: 09/30 15:32 Chief complaint: Patient states: Cough, headache, sore throat, bilateral ear pain, and ph chills x 3 days. Coronavirus screen: Vaccine status: Patient reports receiving the 2nd dose of the covid vaccine. Ebola Screen: No symptoms or risks identified at this time. Initial Sepsis Screen: Does the patient meet any 2 criteria? No. Patient's initial sepsis screen is negative. Does the patient have a suspected source of infection? No. Patient's initial sepsis screen is negative. Risk Assessment: Do you want to hurt yourself or someone else? Patient reports no desire to harm self or others. Onset of symptoms was September 30, 2022. 15:32 Method Of Arrival: Ambulatory ph 15:32 Acuity: BECKY 4 ph Triage Assessment: 15:33 General: Appears in no apparent distress. Behavior is cooperative, fussy. Pain: ph Complains of pain in "aching everywhere.". Historical: - Allergies: 15:33 Naproxen; ph - PMHx: 15:33 Anxiety; Bipolar disorder; Depression; Schizophrenia; ph - PSHx: 15:33 Appendectomy; Cholecystectomy; tubal ligation; ph - Immunization history:: Adult Immunizations unknown. - Social history:: Smoking status: Patient reports the use of cigarette tobacco products, smokes one-half pack cigarettes per day. Assessment: 16:00 Reassessment: Pt called from [employer] to exam room by radiology receptionist. No answer. Unable to ss locate patient. 16:45 Reassessment: called from [employer], no answer. Unable to locate patient. ss 17:05 Reassessment: Pt called stating she was at home, and wanted to know her swab results. ss RABIA Garland notfiied. Vital Signs: 15:32 BP 112 / 70; Pulse 103; Resp 24; Temp 98.0; Pulse Ox 98% on R/A; Weight 88 kg; Height 5 ph ft. 4 in. (162.56 cm); 15:32 Body Mass Index 33.30 (88.00 kg, 162.56 cm) ph ED Course: 14:09 Patient arrived in ED. rg4 14:14 Bruce Wright PA is PHCP. cp 14:14 Bruce Jackson MD is Attending Physician. cp 15:33 Triage completed. ph 15:34 Arm band placed on Patient placed in waiting room, Patient notified of wait time. ph 15:36 Strep Sent. ph 15:36 COVID-19/FLU A+B Sent. ph 17:05 No provider procedures requiring assistance completed. Patient did not have IV access ss during this emergency room visit. Administered Medications: No medications were administered Outcome: 17:21 Discharge ordered by . cp 17:30 Discharged to home SEE NURSES NOTES FOR FURTHER DOCUMENTATION ss 17:31 Patient left the ED. ss Signatures: Angeles Pang, RN RN Amy Padilla RN RN Bruce Wright PA PA cp Garcia, Rubi rg4
--- NOTE | 2022-09-30 17:22 | EDPHYS ---
Physician Documentation [facility] Name: Jennifer Salazar Age: 47 yrs Sex: Female : 1975 Arrival Date: 09/30/2022 Time: 14:09 Bed IW1 Private MD: ED Physician Bruce Jackson HPI: 09/30 14:50 This 47 yrs old Female presents to ER via Ambulatory with complaints of Flu Symptoms. cp 14:50 The patient or guardian reports cough, with productive sputum, that is green, that is cp yellow, flu symptoms, arthralgias, myalgias. 14:50 Onset: The symptoms/episode began/occurred 3 day(s) ago. Associated signs and symptoms: cp Pertinent positives: chest pain, sore throat, Pertinent negatives: diarrhea, vomiting. Severity of symptoms: in the emergency department the symptoms are unchanged despite home interventions. Historical: - Allergies: 15:33 Naproxen; ph - PMHx: 15:33 Anxiety; Bipolar disorder; Depression; Schizophrenia; ph - PSHx: 15:33 Appendectomy; Cholecystectomy; tubal ligation; ph - Immunization history:: Adult Immunizations unknown. - Social history:: Smoking status: Patient reports the use of cigarette tobacco products, smokes one-half pack cigarettes per day. ROS: 14:55 Constitutional: Positive for body aches, chills, Negative for fever, poor PO intake. cp 14:55 Eyes: Negative for injury, pain, redness, and discharge. cp 14:55 ENT: Positive for ear pain, sore throat, Negative for drainage from ear(s), difficulty swallowing, difficulty handling secretions. 14:55 Respiratory: Positive for cough, Negative for wheezing. 14:55 Abdomen/GI: Negative for vomiting, diarrhea, constipation. 14:55 Neuro: Positive for headache, Negative for altered mental status, weakness. 14:55 All other systems are negative. Exam: 15:00 Constitutional: The patient appears in no acute distress, alert, awake, non-toxic, well cp developed, well nourished. 15:00 Head/Face: Normocephalic, atraumatic. cp 15:00 Eyes: Periorbital structures: appear normal, Conjunctiva: normal, no exudate, no injection, Sclera: no appreciated abnormality, Lids and lashes: appear normal, bilaterally. 15:00 ENT: External ear(s): are unremarkable, Ear canal(s): are normal, clear, TM's: dullness, bilaterally, Nose: is normal, Mouth: Lips: moist, Oral mucosa: moist, Posterior pharynx: Airway: no evidence of obstruction, patent, Tonsils: no enlargement, no exudate, swelling, is not appreciated, erythema, that is mild, exudate, is not appreciated. 15:00 Neck: ROM/movement: is normal, is supple, no meningismus, no nuchal rigidity, Lymph nodes: no appreciated lymphadenopathy. 15:00 Chest/axilla: Inspection: normal. 15:00 Cardiovascular: Rate: tachycardic, Rhythm: regular. 15:00 Respiratory: the patient does not display signs of respiratory distress, Respirations: normal, no use of accessory muscles, no retractions, labored breathing, is not present, Breath sounds: decreased breath sounds, are not appreciated, stridor, is not appreciated, + upper airway congestion. 15:00 Abdomen/GI: Exam negative for discomfort, distension, guarding, Inspection: abdomen appears normal. 15:00 Skin: no rash present. Vital Signs: 15:32 BP 112 / 70; Pulse 103; Resp 24; Temp 98.0; Pulse Ox 98% on R/A; Weight 88 kg; Height 5 ph ft. 4 in. (162.56 cm); 15:32 Body Mass Index 33.30 (88.00 kg, 162.56 cm) ph MDM: 15:37 Patient medically screened. [facility] 17:20 Data reviewed: vital signs, nurses notes, lab test result(s), radiologic studies, plain cp films. 17:20 Differential diagnosis: bronchitis, flu, pneumonia, sepsis. Test interpretation: by ED cp physician or midlevel provider: plain radiologic studies. Counseling: I had a detailed discussion with the patient and/or guardian regarding: the historical points, exam findings, and any diagnostic results supporting the discharge/admit diagnosis, lab results, radiology results, to return to the emergency department if symptoms worsen or persist or if there are any questions or concerns that arise at home. ED course: VSS. Patient appears non-toxic and no signs of respiratory distress. Will discharge to home for continued monitoring. 09/30 14:38 Order name: COVID-19/FLU A+B cp 09/30 14:38 Order name: Strep cp 09/30 16:17 Order name: Throat Culture EDGA 09/30 15:35 Order name: Cardiac monitoring cp 09/30 15:35 Order name: EKG - Nurse/Tech cp 09/30 15:35 Order name: IV Saline Lock cp 09/30 15:35 Order name: Labs collected and sent cp 09/30 15:35 Order name: O2 Per Protocol cp 09/30 15:35 Order name: O2 Sat Monitoring cp 09/30 15:35 Order name: Urine Dipstick-Ancillary (obtain specimen) cp 09/30 15:35 Order name: Urine Test (obtain specimen) cp Administered Medications: No medications were administered Disposition Summary: 09/30/22 17:21 Discharge Ordered Location: Home cp Problem: new cp Symptoms: are unchanged cp Condition: Stable cp Diagnosis - Acute upper respiratory infection, unspecified cp - Chest pain, unspecified cp - Acute pain, not elsewhere classified cp Followup: cp - With: Private Physician - When: 1 - 2 days - Reason: Recheck today's complaints Discharge Instructions: - Discharge Summary Sheet cp - Nonspecific Chest Pain, Adult cp - Viral Respiratory Infection cp - Aspirin and Your Heart cp Forms: - Medication Reconciliation Form cp - Thank You Letter cp - Antibiotic Education cp - Prescription Opioid Use cp Signatures: Dispatcher [employer] Bruce Farias MD MD cha Hall, Patricia, RN RN ph Bruce Wright, RABIA PA cp
[2022-09-30 17:34] VITALS: BP 112/70; TEMP 98; O2SAT 98
== END 2022-09-30 17:31 | disposition home or self-care (01) ==
LOC: ER 14:05
DX: J06.9 Acute upper respiratory infection, unspecified (principal); R07.9 Chest pain, unspecified; F17.210 Nicotine dependence, cigarettes, uncomplicated; Z20.822 Contact with and (suspected) exposure to COVID-19
CPT/HCPCS: 87070; 87081; 0240U; 99282

== ENCOUNTER 2024-03-01 19:39 | Emergency (ER) | payer OTHER ==
--- OUTSIDE RECORDS SUMMARY | 2024-03-01 19:42 | XMS REPORT | Continuity of Care Document ---
Author Name Unknown Address [address] [facility] [place] [address] [facility] Address [address] [facility] [place] [address] Care Team Providers Care [facility] [employer] Name Role Phone BARBER ARAIZA Primary Care Physician Unavailab SETH Parsons Attending Clinician UnavailUTE Chatman Attending Clinician Unavailable Ute Swan DO Attending Clinician [phone] Doctor Unassigned, [place] Attending Clinician U Anali Harris Attending Clinician [phone] ANALI BOYKIN Attending Clinician Unavailable Stiven RYDER, Monie Attending Clinician Unavailtamiko guerrero Pob, [facility] Lab Main Attending Clinician UnavailSeth Herr MD Attending Clinician [phone] Only, Adc Test Attending Clinician Unavailable Venkat Stark MD Attending Clinician [phone] Jaret Webb MD Attending Clinician [phone] JARET WEBB Attending Clinician Unavailable Sun Hamilton Attending Clinician [phone] Jimbo Sommers MD Attending Clinician [phone] DR GILMA FONTANEZ Attending Clinician Unava ilSETH Conley Admitting Clinician UnavailUTE Chatman Admitting Clinician Unavailable Seth Roca MD Admitting Clinician [phone] DR GILMA FONTANEZ Admitting Clinician Unava ilable Payers Payer Name Policy Type Policy Number Effective Date Expirati on Date Source [facility] [id number] 2018 00:00:00 Problems Condition Name Condition Details Condition Category Status Onset Date Resolution Date Last Treatment Date Treating Clinician Comments Source Closed displaced fracture of middle phalanx of right middle finger, initial encounter Closed displaced fracture of middle phalanx of right middle finger, initial encounter Disease Active 2019-11 00:00: 00 Overview: Formattin g of this note might be different from the original. Added automatic ally from request for surgery [id number] [facility] No known active problems No known active problems Disease [facility] Severe anxiety Severe anxiety Problem Active [facility] Current moderate episode of major depressive disorder without prior episode Current moderate episode of major depressive disorder without prior episode Problem Active [facility] Bipolar affective disorder, current episode mixed, current episode severity unspecifie d Bipolar affective disorder, current episode mixed, current episode severity unspecifie d Problem Active [facility] Pain of joint of left ankle and foot Pain of joint of left ankle and foot Problem Active [facility] Closed nondisplac ed fracture of lateral malleolus of left fibula, initial encounter Closed nondisplac ed fracture of lateral malleolus of left fibula, initial encounter Problem Active [facility] Closed nondisplac ed fracture of lateral malleolus of left fibula with routine healing Closed nondisplac ed fracture of lateral malleolus of left fibula with routine healing Problem Active [facility] Left sciatic nerve pain Left sciatic nerve pain Problem Active [facility] Allergies, Adverse Reactions, Alerts Allergy Name Allergy Type Status Severity Reaction(s) Onset Date Inactive Date Treating Clinician Comments Source Tramadol Propensi ty to adverse reaction s Active Nausea and/or Vomiting 2017-11 00:00: 00 [facility] TRAMADOL DRUG INGREDI Active ITCHING 2017-11 00:00: 00 [facility] Toradol DA Active Unknown 11-28 00:00: 00 [facility] Neuronti n DA Active Unknown 11-28 00:00: 00 [facility] Naproxen DA Active Unknown 18 00:00: 00 [facility] Social History Social Habit Start Date Stop Date Quantity Comments Source History of tobacco use Cigarette Smoker [facility] Exposure to SARS-CoV-2 (event) 2022-12-09 00:00:00 2022-12-19 16:05:00 Not sure [facility] Alcohol intake 2020-09-29 00:00:00 2020-09-29 00:00:00 [facility] Cigarettes smoked current (pack per day) - Reported 2020-09-09 00:00:00 2020-09-09 00:00:00 [facility] Tobacco use and exposure 2020-09-09 00:00:00 2020-09-09 00:00:00 Smokeless tobacco non-user [facility] Tobacco Comment 2020-09-09 00:00:00 2020-09-09 00:00:00 1 pack/3 days [facility] History SDOH Alcohol Frequency 2020-09-06 00:00:00 2020-09-06 00:00:00 1 [facility] History SDOH Alcohol Std Drinks 2020-09-06 00:00:00 2020-09-06 00:00:00 99 [facility] History SDOH Alcohol Binge 2020-09-06 00:00:00 2020-09-06 00:00:00 1 [facility] Sex Assigned At 1975 00:00:00 1975 00:00:00 [facility] Smoking Status Start Date Stop Date Source Smokes tobacco daily 2020-09-09 00:00:00 [facility] Unknown if ever smoked Un[facility] Medications Ordered Medication Name Filled Medication Name Start Date Stop Date Current Medication? Ordering Clinician Indication Dosage Frequency Signature (SIG) Comments Components Source hydrOXYzine (ATARAX) tablet 25 mg 12-19 22:00: 00 12-19 21:57 :00 No 25mg 25 mg, Oral, ONCE, 1 dose, On Sat12/19/22 at 1600, BOBBI [facility] naproxen sodium 550 mg tablet 12-19 00:00: 00 Yes [id number] 550mg Take 1 tablet by mouth in the morning and 1 tablet in the evening. Take with meals. [facility] methylPREDN ISolone 4 mg tablets 12-19 00:00: 00 Yes [id number] Take by mouth SEE-INSTRU CTIONS. follow package directions [facility] hydrOXYzine 50 mg capsule 12-19 00:00: 00 01-19 05:59 :00 No [id number] 50mg Take 1 capsule by mouth 4 (four) times daily as needed for Anxiety for up to 30 days. [facility] methocarbam oL 500 mg tablet 12-19 00:00: 00 12-25 05:59 :00 No [id number] 500mg Take 1 tablet by mouth in the morning and 1 tablet at noon and 1 tablet in the evening. Do all this for 5 days. [facility] acetaminoph en-codeine (TYLENOL-CO DEINE #3) 300-30 mg tablet 2019-11 00:00: 00 Yes [id number] 1{tbl} Take 1 tablet by mouth every 4 (four) hours as needed for Pain (scale 4-6) or Pain (scale 7-10). Indication s: chronic pain [facility] clindamycin 150 mg capsule 2019-11 00:00: 00 Yes TAKE 2 CAPSULES BY MOUTH 4 TIMES DAILY FOR 10 DAYS [facility] lactated ringers IV infusion 1,000 mL 2019-11 19:45: 00 Yes 1000mL at 75 mL/hr, 1,000 mL, IV Infusion, CONTINUOUS , Starting 09/12/20 at 1345, Until Discontinu ed, Routine, PACU [facility] HYDROmorpho ne (DILAUDID) injection 0.2 mg 2019-11 19:35: 58 Yes .2mg 0.2 mg, Slow IV Push, Q5MIN PRN, 10 doses, Starting 09/12/20 at 1335, Until Discontinu ed, Routine, Pain (scale 7-10), PACU
Us e approved by (Faculty): PACU USE -ANESTHESI A SERVICE-HY DROMORPHON E INJECTIONS [facility] FENTanyl PF (SUBLIMAZE (PF)) injection 25 mcg 2019-11 19:35: 58 Yes 25ug 25 mcg, Slow IV Push, Q5MIN PRN, 4 doses, Starting Sat09/12/20 at 1335, Until Discontinu ed, Routine, Pain (scale 4-6), PACU [facility] ondansetron (ZOFRAN (PF)) injection 4 mg 2019-11 19:35: 58 Yes 4mg 4 mg, Slow IV Push, PRN, 1 dose, Starting Sat09/12/20 at 1335, Until Discontinu ed, Routine, Nausea and Vomiting (N/V), PACU [facility] lactated ringers IV infusion 1,000 mL 2019-11 14:30: 00 09-12 14:30 :00 No 1000mL at 42 mL/hr, 1,000 mL, IV Infusion, ONCE, 1 dose, Sat09/12/20 at 0830, Routine, DSU Pre-op [facility] acetaminoph en-codeine 300-60 mg tablet 2019-11 00:00: 00 09-20 05:59 :00 No [id number] 1{tbl} Take 1 tablet by mouth every 6 (six) hours as needed for Pain (pain score 4-10) for up to 7 days. Indication s: acute pain [facility] clindamycin 150 mg capsule 2019-11 0 00:00: 00 09-17 05:59 :00 No [id number] 300mg Take 2 capsules by mouth 4 (four) times daily for 10 days. [facility] divalproex 500 mg EC tablet 2019-11 00:00: 00 Yes 500mg Take 500 mg by mouth 2 (two) times daily. [facility] traZODone 100 mg tablet 2019-11 00:00: 00 Yes TAKE 1 TO 2 TABLETS BY MOUTH EVERY DAY AT BEDTIME DIRECTED NEEDED FOR INSOMNIA [facility] hydrOXYzine 50 mg capsule 2019-11 00:00: 00 12-19 00:00 :00 No TAKE 1 CAPSULE BY MOUTH THREE TIMES DAILY NEEDED FOR ACUTE ANXIETY [facility] ondansetron (ZOFRAN (PF)) injection 4 mg 06-08 14:15: 00 06-08 13:25 :00 No 4mg 4 mg, Slow IV Push, ONCE, 1 dose, Sat06/08/20 at 0915, [facility] morpHINE injection 4 mg 06-08 14:15: 00 06-08 13:25 :00 No 4mg 4 mg, Slow IV Push, ONCE, 1 dose, Sat06/08/20 at 0915, [facility] LORazepam (ATIVAN) tablet 2 mg 07-17 00:34: 00 07-17 00:37 :00 No 2mg 2 mg, Oral, ONCE, 1 dose, [facility] 07/16/19 at 1945, [facility] LORazepam (ATIVAN) tablet 2 mg 07-16 20:56: 00 07-16 21:02 :00 No 2mg 2 mg, Oral, ONCE, 1 dose, [facility] 07/16/19 at 1600, [facility] Tylenol # 3 Tylenol # 3 04-02 00:00: 00 06-06 00:00 :00 No Mac Osorio one tab [facility] No known medications No Un tin [facility] No known medications No Un tin [facility] No known medications No Un tin [facility] Acetaminoph en-Codeine #3 Acetaminoph en-Codeine #3 Yes Mac Osorio not defined [facility] Lorazepam Lorazepam Yes Mac Osorio 1 tablet at bedtime as needed [facility] Effexor Effexor Yes Mac Osorio 1 tablet with food [facility] Klonopin Klonopin Yes Mac Osorio 1 tablet at bedtime [facility] Zoloft Zoloft Yes Mac Osorio 2 tab [facility] Depakote Depakote Yes Mac Osorio not defined [facility] Vital Signs Vital Name Observation Time Observation Value Comments S ource Body temperature 2022-12-19 21:47:00 36.33 Sharona [facility] Systolic blood pressure 2022-12-19 21:43:00 105 mm[Hg] [facility] Diastolic blood pressure 2022-12-19 21:43:00 71 mm[Hg] [facility] Heart rate 2022-12-19 21:43:00 99 /min [facility] Respiratory rate 2022-12-19 21:43:00 22 /min [facility] Body weight 2022-12-19 21:43:00 61.236 kg [facility] BMI 2022-12-19 21:43:00 22.12 kg/m2 [facility] Oxygen saturation in Arterial blood by Pulse oximetry 2022-12-19 21:43:00 97 /min [facility] Systolic blood pressure 2020-09-29 19:53:00 118 mm[Hg] [facility] Diastolic blood pressure 2020-09-29 19:53:00 77 mm[Hg] [facility] Heart rate 2020-09-29 19:53:00 79 /min [facility] Body height 2020-09-29 19:53:00 166.4 cm [facility] Systolic blood pressure 2020-09-12 20:05:00 136 mm[Hg] [facility] Diastolic blood pressure 2020-09-12 20:05:00 85 mm[Hg] [facility] Heart rate 2020-09-12 20:05:00 51 /min [facility] Body temperature 2020-09-12 20:05:00 36.67 Sharona [facility] Respiratory rate 2020-09-12 20:05:00 19 /min [facility] Oxygen saturation in Arterial blood by Pulse oximetry 2020-09-12 20:05:00 100 /min [facility] Body height 2020-09-08 15:11:00 165.1 cm [facility] Body weight 2020-09-08 15:11:00 61.2 kg [facility] BMI 2020-09-08 15:11:00 22.45 kg/m2 [facility] Systolic blood pressure 2020-09-06 16:15:00 115 mm[Hg] [facility] Diastolic blood pressure 2020-09-06 16:15:00 80 mm[Hg] [facility] Heart rate 2020-09-06 16:15:00 69 /min [facility] Body height 2020-09-06 16:15:00 165.1 cm [facility] Body weight 2020-09-06 16:15:00 61.236 kg Univ [facility] BMI 2020-09-06 16:15:00 22.47 kg/m2 [facility] Systolic blood pressure 2020-06-08 12:56:00 120 mm[Hg] [facility] Diastolic blood pressure 2020-06-08 12:56:00 79 mm[Hg] [facility] Heart rate 2020-06-08 12:56:00 76 /min [facility] Body temperature 2020-06-08 12:56:00 36.67 Sharona [facility] Respiratory rate 2020-06-08 12:56:00 16 /min [facility] Body weight 2020-06-08 12:56:00 68.04 kg Univ [facility] BMI 2020-06-08 12:56:00 24.96 kg/m2 [facility] Oxygen saturation in Arterial blood by Pulse oximetry 2020-06-08 12:56:00 98 /min [facility] Systolic blood pressure 2020-04-06 16:00:00 126 mm[Hg] [facility] Diastolic blood pressure 2020-04-06 16:00:00 71 mm[Hg] [facility] Heart rate 2020-04-06 16:00:00 74 /min [facility] Body temperature 2020-04-06 16:00:00 37.22 Sharona [facility] Respiratory rate 2020-04-06 16:00:00 20 /min [facility] Body height 2020-04-06 16:00:00 165.1 cm Univ [facility] Body weight 2020-04-06 16:00:00 68.04 kg Univ [facility] BMI 2020-04-06 16:00:00 24.96 kg/m2 [facility] Oxygen saturation in Arterial blood by Pulse oximetry 2020-04-06 16:00:00 100 /min [facility] Systolic blood pressure 2019-07-17 00:00:00 132 mm[Hg] [facility] Diastolic blood pressure 2019-07-17 00:00:00 76 mm[Hg] [facility] Heart rate 2019-07-17 00:00:00 66 /min [facility] Respiratory rate 2019-07-17 00:00:00 18 /min [facility] Oxygen saturation in Arterial blood by Pulse oximetry 2019-07-17 00:00:00 98 /min [facility] Body temperature 2019-07-16 20:03:00 36.78 Sharona [facility] Body weight 2019-07-16 20:02:00 79.379 kg [facility] Weight 2013-04-14 00:39:00 752.96 KG Height 2013-04-14 00:39:00 165.1 CM Procedures Procedure Date / Time Performed Performing Clinician Source NOTICE OF PRIVACY PRACTICES 2021-07-02 19:00:14 Doctor Unassigned, [place] [facility] CONSENT/REFUSAL FOR DIAGNOSIS AND TREATMENT 2021-07-02 18:59:56 Doctor Unassigned, [place] [facility] XR FINGERS 2 VW RIGHT 2020-09-29 18:46:22 Carlos Eduardo Roca [facility] FL TIME OR (NON-REPORTABLE) 2020-09-12 19:39:39 Seth Roca [facility] FL TIME OR (NON-REPORTABLE) 2020-09-12 19:20:07 Seth Roca [facility] DAY SURGERY - ADC 2020-09-12 06:01:00 Doctor Ana ssigned, [place] [facility] XR CHEST 2 VW 2020-09-09 19:40:29 [facility] CONSENT/REFUSAL FOR DIAGNOSIS AND TREATMENT 2020-09-09 19:21:16 Doctor Unassigned, [place] [facility] ASSIGNMENT OF BENEFITS 2020-09-09 19:18:53 Docto r Unassigned, [place] [facility] DSU PRE-OP 2020-09-08 05:01:00 Doctor Unass igned, [place] [facility] ASSIGNMENT OF BENEFITS 2020-09-06 16:09:16 Docto r Unassigned, [place] [facility] POCT TEST 2020-06-08 13:22:00 [facility] 2020-06-08 13:22:00 Jaret Webb [facility] HEPATIC FUNCTION PANEL ([id number]) (ALB,T.PRO,BILI T,BU/BC,ALT,AST,ALK PHOS) 2020-06-08 13:22:00 [facility]ABOLIC PANEL (NA, K, CL, CO2, GLUCOSE, BUN, CREATININE, CA) 2020-06-08 13:22:00 Tracey [facility] CBC WITH DIFF 2020-06-08 13:22:00 Jaret Webb [facility] URINALYSIS 2020-06-08 13:22:00 Jaret Webb [facility] RAPID STREP SCREEN FOR GROUP A 2020-04-06 16:23:00 Sun Castro [facility] NOTICE OF PRIVACY PRACTICES 2020-04-06 15:48:09 Doctor Unassigned, [place] [facility] CONSENT/REFUSAL FOR DIAGNOSIS AND TREATMENT 2020-04-06 15:47:58 Doctor Unassigned, [place] [facility] FREE T4 2019-07-16 20:51:00 Jimbo Sommers [facility] THYROID STIMULATING HORMONE 2019-07-16 20:51:00 Jimbo Sommers [facility] HEPATIC FUNCTION PANEL ([id number]) (ALB,T.PRO,BILI T,BU/BC,ALT,AST,ALK PHOS) 2019-07-16 20:51:00 Jimbo Sommers [facility] BASIC METABOLIC PANEL (NA, K, CL, CO2, GLUCOSE, BUN, CREATININE, CA) 2019-07-16 20:51:00 Jimbo Sommers [facility] SALICYLATE 2019-07-16 20:51:00 Jimbo Sommers [facility] ETHANOL 2019-07-16 20:51:00 Jimbo Sommers [facility] CBC WITH DIFFERENTIAL 2019-07-16 20:51:00 Last Somemrs [facility] URINALYSIS 2019-07-16 20:51:00 Jimbo Sommers [facility] ADC / LCC - DRUG SCREEN TRIAGE 2019-07-16 20:51:00 Jimbo Sommers [facility] POCT TEST 2019-07-16 20:37:00 Quintin Sommers [facility] EKG-12 LEAD 2019-07-16 20:28:43 Jimbo Sommers [facility] NOTICE OF PRIVACY PRACTICES 2019-07-16 19:39:12 Doctor Unassigned, [place] [facility] CONSENT/REFUSAL FOR DIAGNOSIS AND TREATMENT 2019-07-16 19:38:59 Doctor Unassigned, [place] [facility] SKIN CLOSURE NEC 2013-04-14 00:00:00 [facility] Encounters Start Date/Time End Date/Time Encounter Type Admission Type Attending [facility] Care Facility Care Department Encounter ID Source 2021-09-11 17:13:34 Emergency [facility] [id number] [facility] 2021-09-09 01:42:20 Outpatient R SETH ROCA [facility] PADMINI [id number] [facility] 2022-12-19 15:47:00 2022-12-19 18:02:00 Emergency X SINGER UTE [facility] ERT [id number] [facility] 2022-12-19 15:47:00 2022-12-19 18:02:[address] [facility] [id number] 350.1.13.10 [id number] [id number] [facility] 2021-07-02 14:21:00 2021-07-02 15:17:00 Emergency [facility] [id number] 350.1.13.10 4.2.7.2.686 [id number] [facility] 2021-07-02 00:00:00 2021-07-02 00:00:00 Orders Only Doctor Unassigned, [place] [facility] [id number] 350.1.13.10 4.2.7.2.686 [id number] 2021-07-02 00:00:00 2021-07-02 00:00:00 Orders Only Doctor Unassigned, [place] [facility] [id number] 350.1.13.10 4.2.7.2.686 [id number] [facility] 2020-10-25 00:00:00 2020-10-25 00:00:00 Telephone [facility] rocco [place] [id number] 350.1.13.10 4.2.7.2.686 [id number] 2020-10-25 00:00:00 2020-10-25 00:00:00 Telephone [facility] rocco [place] [id number] 350.1.13.10 4.2.7.2.686 [id number] [facility] 2020-10-17 14:00:00 2020-10-17 14:00:00 Outpatient R LUCRETIA ANALI [facility] [id number] [facility] 2020-10-14 00:00:00 2020-10-14 00:00:00 Telephone [facility] [id number] 350.1.13.10 4.2.7.2.686 [id number] 2020-10-14 00:00:00 2020-10-14 00:00:00 Nurse Triage Monie Saleem [facility] 1.2.840.114 350.1.13.10 4.2.7.2.686 [id number] 2020-10-14 00:00:00 2020-10-14 00:00:00 [facility] [id number] 350.1.13.10 4.2.7.2.686 [id number] [facility] 2020-10-14 00:00:00 2020-10-14 00:00:00 Nurse Triage Monie Saleem [facility] 1.2.114 350.1.13.10 4.2.7.2.686 [id number] [facility] 2020-10-13 10:30:00 2020-10-13 10:30:00 Outpatient ANALI COOK [facility] [id number] [facility] 2020-10-04 00:00:00 2020-10-04 00:00:00 Clinic Assessment [facility] Specialhunter Gil 1.2.114 350.1.13.10 4.2.7.2.686 [id number] 2020-10-04 00:00:00 2020-10-04 00:00:00 Clinic Assessment [facility] rocco [place] 1.20.114 350.1.13.10 4.2.7.2.686 [id number] [facility] 2020-10-03 14:00:00 2020-10-03 14:00:00 Outpatient ANALI COOK [facility] [id number] [facility] 2020-09-30 08:00:00 2020-09-30 08:00:00 Outpatient Anuj BOYKIN [facility] [id number] [facility] 2020-09-30 07:42:57 2020-09-30 07:57:57 Customer Experience Analyst Visit Pob, Adc Lab Main Seth Roca [facility] 1.2114 350.1.13.10 4.2.7.2.686 [id number] [facility] 2020-09-30 00:00:00 2020-09-30 00:00:00 Telephone [facility] rocco [place] 1.2.114 350.1.13.10 4.2.7.2.686 [id number] [facility] 2020-09-30 00:00:00 2020-09-30 00:00:00 Telephone Anali Boykin [facility] Surgical Special[facility] 1.2.840.114 350.1.13.10 4.2.7.2.686 [id number] 2020-09-29 12:28:56 2020-09-29 23:59:00 Hospital Encounter Seth Roca [facility] 1.2.840.114 350.1.13.10 4.2.7.2.686 [id number] [facility] 2020-09-29 13:51:51 2020-09-29 15:05:33 Office Visit Anali Boykin [facility] Surgical Specialhunter Gil 1.2.840.114 350.1.13.10 4.2.7.2.686 [id number] [facility] 2020-09-29 13:45:00 2020-09-29 13:45:00 Outpatient R ANALI BOYKIN [facility] [id number] [facility] 2020-09-29 00:00:00 2020-09-29 00:00:00 Telephone Anali Boykin [facility] Surgical Special[facility] 1.2.840.114 350.1.13.10 4.2.7.2.686 [id number] [facility] 2020-09-28 00:00:00 2020-09-28 00:00:00 Telephone Seth Roca [facility] Surgical Specialti rocco [place] 1.2.840.114 350.1.13.10 4.2.7.2.686 [id number] [facility] 2020-09-28 00:00:00 2020-09-28 00:00:00 Telephone Seth [facility] Surgical Specialti rocco [place] 1.2.840.114 350.1.13.10 4.2.7.2.686 [id number] [facility] 2020-09-27 00:00:00 2020-09-27 00:00:00 Telephone [facility] Surgical Special rocco [place] 1.2.114 350.1.13.10 4.2.7.2.686 [id number] [facility] 2020-09-26 16:00:00 2020-09-26 16:00:00 Outpatient R [facility] [id number] [facility] 2020-09-26 00:00:00 2020-09-26 00:00:00 Telephone [facility] Surgical Special rocco [place] 1.284.114 350.1.13.10 4.2.7.2.686 [id number] [facility] 2020-09-23 10:15:00 2020-09-23 10:15:00 Outpatient R SETH ROCA [facility] [id number] [facility] 2020-09-19 00:00:00 2020-09-19 00:00:00 Telephone [facility] 1.2.114 350.1.13.10 4.2.7.2.686 [id number] [facility] 2020-09-12 08:14:00 2020-09-12 14:20:00 Hospital Encounter Seth Roca [facility] 1.84.114 350.1.13.10 4.2.7.2.686 [id number] [facility] 2020-09-12 00:00:00 2020-09-12 00:00:00 Orders Only Doctor Unassigned, [place] [facility] 1.2840.114 350.1.13.10 4.2.7.2.686 [id number] [facility] 2020-09-09 14:17:36 2020-09-09 23:59:00 Hospital Encounter Seth Roca [facility] 1.2.840.114 350.1.13.10 4.2.7.2.686 [id number] [facility] 2020-09-09 14:16:24 2020-09-09 14:31:24 Customer Experience Analyst Visit Pob, Adc Lab Main [facility] 1.2840.114 350.1.13.10 4.2.7.2.686 [id number] [facility] 2020-09-09 14:15:01 2020-09-09 14:30:01 Laboratory Only Only, Adc Test Venkat Stark [facility] 1.2.840.114 350.1.13.10 4.2.7.2.686 [id number] [facility] 2020-09-09 14:00:00 2020-09-09 14:00:00 Outpatient R SETH ROCA [facility] [id number] [facility] 2020-09-08 00:00:00 2020-09-08 00:00:00 Orders Only Doctor Unassigned, [place] [facility] 1.2.840.114 350.1.13.10 4.2.7.2.686 [id number] [id number] [facility] 2020-09-07 00:00:00 2020-09-07 00:00:00 Prep For Surgery Seth Roca [facility] Surgical Specialti rocco [place] 1.2.840.114 350.1.13.10 4.2.7.2.686 [id number] [facility] 2020-09-06 11:10:09 2020-09-06 11:25:09 Office Visit Anali [facility] Surgical Specialti es [place] 1.2.840.114 350.1.13.10 4.2.7.2.686 [id number] [facility] 2020-09-06 10:00:00 2020-09-06 10:00:00 Outpatient ANALI COOK [facility] [id number] [facility] 2020-09-06 00:00:00 2020-09-06 00:00:00 Orders Only Doctor Unassigned, [place] [facility] 1.2840.114 350.1.13.10 4.2.7.2.686 [id number] [id number] [facility] 2020-06-08 07:57:26 2020-06-08 09:17:00 Emergency Tracey J[facility] 1.2.114 350.1.13.10 4.2.7.2.686 [id number] [facility] 2020-06-08 07:57:26 2020-06-08 07:57:26 Emergency X JARET WEBB [facility] ERT [id number] [facility] 2020-04-06 11:02:11 2020-04-06 12:59:00 Emergency Sun Castro [facility] 1..114 350.1.13.10 4.2.7.2.686 [id number] [facility] 2020-04-06 10:49:00 2020-04-06 10:49:00 Emergency X [facility] ERT [id number] [facility] 2020-04-06 00:00:00 2020-04-06 00:00:00 Orders Only Doctor Unassigned, [place] [facility] 1.2.114 350.1.13.10 4.2.7.2.686 [id number] [facility] 2019-07-16 15:08:41 2019-07-16 20:56:00 Emergency Matthieu Jimbo [facility] 1.2840.114 350.1.13.10 4.2.7.2.686 [id number] [facility] 2019-05-20 16:15:00 2019-05-20 16:15:00 [facility]patient [facility] [id number] [facility] 2019-05-07 15:30:00 2019-05-07 15:30:00 Outpatient [facility] [id number] [facility] 2019-05-07 14:28:00 2019-05-07 14:28:00 [facility] [id number] [facility] 2019-05-06 11:28:00 2019-05-06 11:28:00 Outpatient [facility] [id number] [facility] 2019-05-05 14:00:00 2019-05-05 14:00:00 Outpatient [facility] [id number] [facility] 2019-04-28 09:30:00 2019-04-28 09:30:00 Outpatient [facility] [id number] [facility] 2019-04-24 10:53:00 2019-04-24 10:53:00 Outpatient [facility] [id number] [facility] 2019-04-24 10:06:00 2019-04-24 10:06:00 [facility]patient [facility] [id number] [facility] 2019-01-12 10:00:00 2019-01-12 10:00:00 [facility] [id number] [facility] 2013-04-14 00:19:00 2013-04-14 03:12:00 Emergency E GILMA FONTANEZ [facility] [id number] [facility] Results Test Description Test Time Test Comments Results Result Comments Source XR FINGERS 2 VW RIGHT 18:49:48 HISTORY: ?Pain. FINDINGS: AP and lateral views of right middle [...] of middle phalanx of the right middlefinger. [facility] [place] TIME OR (NON-REPORTABLE) 19:40:57 These images do not require a Radiology diagnostic report. [facility] [place] TIME OR (NON-REPORTABLE) 19:23:57 These images do not require a Radiology diagnostic report. [facility] XR CHEST 2 19:56:49 No evidence of acute cardiopulmonary disease.2 VIEWS OF THE CHEST HISTORY: pre-op COMPARISON: none TECHNIQUE: PA [...] are seen.IMPRESSIONNo evidence of acute cardiopulmonary disease. [facility] ([facility]B, T.PRO, BILI T, BU/BC, ALT, AST, ALK PHOS)2020-06-08 13:47:00* Test Item Value Reference Range Interpretation Comme nts TOTAL BILI (test code = 2269633436) 0.3 mg/dL 0.1-1.1 BILI UNCON (test code = 7123515973) 0.5 mg/dL 0.1-1.1 BILI CONJ (test code = 8627324429) 0.0 mg/dL 0-0.3 T PROTEIN (test code = 7471986780) 7.1 g/dL 6.3-8.2 ALBUMIN (test code = 7264091959) 4.2 g/dL 3.5-5 ALK PHOS (test code = 0725849969) 53 U/L 34-122 ALTv (test code = 1742-6) 22 U/L 5-35 AST(SGOT) (test code = 5516191646) 32 U/L 13-40 Lab Interpretation (test cod e = 71846-9) Normal [facility] [id number] 13:47:00* Test Item Value Reference Range Interpretation Comme nts LIPASE (test code = 6372656891) 142 U/L 0-220 Lab Interpretation (test cod e = 91375-1) Normal [facility]2020-07-29 13:47:00* Test Item Value Reference Range Interpretation Comme nts APPEARANCE (test code = 7416346059) Clear Clear COLOR (test code = 8905708959) Straw Yellow A PH (test code = 0669913073) 4.8-8.0 SP GRAVITY (test code = 2150313049) 1.003-1.030 L GLU U QUAL (test code = 5051300606) Normal Normal BLOOD (test code = 8582655786) Negative Negative KETONES (test code = 1867527963) Negative Negative PROTEIN (test code = 2887-8) Negative Negative UROBILIN (test code = 7770621409) Normal Normal BILIRUBIN (test code = 8373762834) Negative Negative NITRITE (test code = 8075045314) Negative Negative LEUK MAYNOR (test code = 0271095461) Negative Negative RBC/HPF (test code = 0137608395) <1 See_Comment [Automated messa ge] The system which generated this result transmitted reference range: 0 - 3 HPF. The reference range was not used to interpret this result as normal/abnormal. WBC/HPF (test code = 2194822756) <1 See_Comment [Automated messa ge] The system which generated this result transmitted reference range: 0 - 5 HPF. The reference range was not used to interpret this result as normal/abnormal. BACTERIA (test code = 9133883774) Negative Negative SQ EPITH (test code = 7366690004) <1 See_Comment [Automated messa ge] The system which generated this result transmitted reference range: <=2 HPF. The reference range was not used to interpret this result as normal/abnormal. Lab Interpretation (test code = 58780-0) Abnormal [facility] with Timkkwqljzxz9020-59-79 13:37:00* Test Item Value Reference Range Interpretation Comme nts WBC (test code = 6690-2) See_Comment [Automated messa ge] The system which generated this result transmitted reference range: 4.30 - 11.10 10*3/?L. The reference range was not used to interpret this result as normal/abnormal. RBC (test code = 789-8) See_Comment [Automated messa ge] The system which generated this result transmitted reference range: 3.93 - 5.25 10*6/?L. The reference range was not used to interpret this result as normal/abnormal. HGB (test code = 718-7) 8.9 g/dL 11.6-15 L HCT (test code = 4544-3) 29.5 % 35.7-45.2 L MCV (test code = 787-2) 72.0 fL 80.6-95.5 L MCH (test code = 785-6) 21.7 pg 25.9-32.8 L MCHC (test code = 786-4) 30.2 g/dL 31.6-35.1 L RDW-SD (test code = 97129-0) 42.9 fL 39-49.9 RDW-CV (test code = 788-0) 16.6 % 12-15.5 H PLT (test code = 777-3) See_Comment [Automated English TVa ge] The system which generated this result transmitted reference range: 166 - 358 10*3/?L. The reference range was not used to interpret this result as normal/abnormal. MPV (test code = 01508-5) 9.3 fL 9.5-12.9 L NRBC/100 WBC (test code = 3194706033) See_Comment [Automated Effektif ssage] The system which generated this result transmitted reference range: 0.0 - 10.0 /100 WBCs. The reference range was not used to interpret this result as normal/abnormal. NRBC x10^3 (test code = 6077432446) <0.01 See_Comment [Automated English TVa ge] The system which generated this result transmitted reference range: 10*3/?L. The reference range was not used to interpret this result as normal/abnormal. GRAN MAT (NEUT) % (test code = 770-8) 55.7 % IMM GRAN % (test code = 8451203939) 0.20 % LYMPH % (test code = 736-9) 30.8 % MONO % (test code = 5905-5) 10.2 % EOS % (test code = 713-8) 2.1 % BASO % (test code = 706-2) 1.0 % GRAN MAT x10^3(ANC) (test code = 4749463211) 3.40 10*3/uL 1.88-7.09 IMM GRAN x10^3 (test code = 9008566861) <0.03 0-0.06 LYMPH x10^3 (test code = 731-0) 1.88 10*3/uL 1.32-3.29 MONO x10^3 (test code = 742-7) 0.62 10*3/uL 0.33-0.92 EOS x10^3 (test code = 711-2) 0.13 10*3/uL 0.03-0.39 BASO x10^3 (test code = 704-7) 0.06 10*3/uL 0.01-0.07 Lab Interpretation (test code = 78154-5) Abnormal [facility] [id number] 13:22:00* Test Item Value Reference Range Interpretation Comme nts POCT PREG (test code = 1605) NEGATIVE On board controls acceptable with C Line (test code = 3574) PRESENT POCT PREG LOT # (test code = 3575) [id number] POCT PREG TEST DATE ( test code = 3576) 08/10/2021 Lab Interpretation (test cod e = 31080-8) Normal [facility] STREP SCREEN FOR GROUP [id number] 16:56:00* Test Item Value Reference Range Interpretation Comme nts Streptococcus pyogenes (grou p A) antigen (test code = 46422-2) Negative Negative Lab Interpretation (test cod e = 35474-0) Normal [facility] 22:17:00* Test Item Value Reference Range Interpretation Comme nts APPEARANCE (test code = 0768807522) Clear Clear COLOR (test code = 8621729783) Yellow Yellow PH (test code = 0671049617) 4.8-8.0 SP GRAVITY (test code = 8338119501) 1.003-1.030 GLU U QUAL (test code = 0436408329) Negative Negative BLOOD (test code = 4466941391) Trace Negative A KETONES (test code = 6543845046) Trace Negative A PROTEIN (test code = 2887-8) Negative Negative UROBILIN (test code = 3093935109) 0.2 mg/dL See_Comment [Automated English TVa ge] The system which generated this result transmitted reference range: 0-1.0 mg/dL. The reference range was not used to interpret this result as normal/abnormal. BILIRUBIN (test code = 1714298419) Small Negative A NITRITE (test code = 4780046307) Negative Negative LEUK MAYNOR (test code = 9147767228) Negative Negative RBC/HPF (test code = 4272231832) See_Comment [Automated English TVa ge] The system which generated this result transmitted reference range: 0 - 3 HPF. The reference range was not used to interpret this result as normal/abnormal. WBC/HPF (test code = 9430073332) See_Comment [Automated English TVa ge] The system which generated this result transmitted reference range: 0 - 5 HPF. The reference range was not used to interpret this result as normal/abnormal. BACTERIA (test code = 6990491469) Negative Negative AMORPHOUS (test code = 2561356801) Few HPF SQ EPITH (test code = 5687490208) HPF Ictotest (test code = 1936575843) Negative Lab Interpretation (test code = 06908-1) Abnormal [facility]wood[facility]YROID STIMULATING [id number] 22:15:00 * Test Item Value Reference Range Interpretation Comme nts TSH (test code = 8678357260) See_Comment [Automated messa ge] The system which generated this result transmitted reference range: 0.45 - 4.70 mIU/L. The reference range was not used to interpret this result as normal/abnormal. Lab Interpretation (test code = 45311-5) Normal [facility]wood[facility] [id number] 22:01:00* Test Item Value Reference Range Interpretation Comme nts FREE T4 (test code = 6665862694) 1.34 ng/dL 0.78-2.2 Lab Interpretation (test cod e = 00314-9) Normal [facility] [id number] 21:59:00* Test Item Value Reference Range Interpretation Comme nts BENZO U (test code = 5291611376) Presumptive Positive Negative A ILEANA U (test code = 1143464561) Negative Negative AMPHET (test code = 6544890542) Negative Negative THC (test code = 3449786594) Negative Negative METHADONE (test code = 9707856974) Negative Negative Meth U (test code = 8024068153) Negative Negative OPIATES (test code = 9411878202) Negative Negative Cocaine Metabolite (test code = 2925710901) Presumptive Positive Negative A PROPOXY (test code = 2655793745) Negative Negative Tric U (test code = 3356003314) Negative Negative PCP (test code = 7691834745) Negative Negative OXYCOD (test code = 8604296827) Negative Negative LUCY (test code = LUCY) Urine Drug [...] employment testing, legal testing). Lab Interpretation (test code = 13928-6) Abnormal [facility]wood[facility]ANOL2019-09-05 21:54:00* Test Item Value Reference Range Interpretation Comme nts ALCOHOL (test code = 3968003901) <10 mg/dL LUCY (test code = LUCY) <10 Kcjnnpgh34-568 Toxic>100 Depression of SENIOR FRONT END ENGINEER>400 Fatalities Reported [facility]woodSALICYLATE2019-09-05 21:54:00* Test Item Value Reference Range Interpretation Comme nts SALICYLATE (test code = 0399710190) <10 mg/L LUCY (test code = LUCY) Therapeutic Range: ? Analgesic and Antipyretic Use? 20-100 mg/L? Anti-Inflammatory Use? 100-250 mg/LToxic Range:? Greater than 300 mg/L [facility]woodACETAMINOPHEN2019-09-05 21:54:00* Test Item Value Reference Range Interpretation Comme nts ACETAMINOP (test code = 6177775525) <10.0 10-30 L LUCY (test code = LUCY) Toxic: Greater derek n 200 ug/mL @ 4 hour post ingestion or greater than 50 ug/mL @ 12 hour post ingestion Lab Interpretation (test code = 16934-0) Abnormal [facility]wood[facility] Function Panel (ALB, T.PRO, BILI T, BU/BC, ALT, AST, ALK PHOS)2019-07-16 21:43:00* Test Item Value Reference Range Interpretation Comme nts TOTAL BILI (test code = 1862247027) 0.2 mg/dL 0.1-1.1 BILI UNCON (test code = 0272746775) 0.2 mg/dL 0.1-1.1 BILI CONJ (test code = 7469949234) 0.0 mg/dL 0-0.3 T PROTEIN (test code = 1399962439) 7.2 g/dL 6.3-8.2 ALBUMIN (test code = 5939095314) 4.4 g/dL 3.5-5 ALK PHOS (test code = 6694914755) 54 U/L 34-122 ALT(SGPT) (test code = 0862758562) 26 U/L 9-51 AST(SGOT) (test code = 4463289149) 25 U/L 13-40 Lab Interpretation (test cod e = 65547-0) Normal [facility] Metabolic Panel (NA, K, CL, CO2, GLUCOSE, BUN, CREATININE, CA)2019-07-16 21:42:00* Test Item Value Reference Range Interpretation Comme nts NA (test code = 6767311429) 148 mmol/L 135-145 H K (test code = 5358611234) 3.4 mmol/L 3.5-5 L CL (test code = 5095365070) 113 mmol/L 98-108 H CO2 TOTAL (test code = 2681277066) 25 mmol/L 23-31 AGAP (test code = 7284816013) 2-16 BUN (test code = 0130777496) 11 mg/dL 7-23 GLUCOSE (test code = 4485816272) 98 mg/dL 70-110 CREATININE (test code = 4777244852) 0.78 mg/dL 0.5-1.04 CALCIUM (test code = 2052618123) 9.2 mg/dL 8.6-10.6 eGFR Calculation (Non-) (test code = 8743411704) mL/min/1.73m2 eGFR Calculation () (test code = 2109550429) mL/min/1.73m2 LUCY (test code = LUCY) Association of [...] or abnormalities in imaging tests). Lab Interpretation (test code = 99625-1) Abnormal [facility]woodCB WITH [id number] 21:24:00* Test Item Value Reference Range Interpretation Comme nts WBC (test code = 6690-2) See_Comment L [Automated [employer]] The system which generated this result transmitted reference range: 4.30 - 11.10 10*3/?L. The reference range was not used to interpret this result as normal/abnormal. RBC (test code = 789-8) See_Comment [Automated English TVa iMeigu] The system which generated this result transmitted reference range: 3.93 - 5.25 10*6/?L. The reference range was not used to interpret this result as normal/abnormal. HGB (test code = 718-7) 8.6 g/dL 11.6-15 L HCT (test code = 4544-3) 29.5 % 35.7-45.2 L MCV (test code = 787-2) 70.9 fL 80.6-95.5 L MCH (test code = 785-6) 20.7 pg 25.9-32.8 L MCHC (test code = 786-4) 29.2 g/dL 31.6-35.1 L RDW-SD (test code = 73078-1) 51.6 fL 39-49.9 H RDW-CV (test code = 788-0) 20.4 % 12-15.5 H PLT (test code = 777-3) See_Comment [Automated [employer]] The system which generated this result transmitted reference range: 166 - 358 10*3/?L. The reference range was not used to interpret this result as normal/abnormal. MPV (test code = 50204-7) 9.2 fL 9.5-12.9 L NRBC/100 WBC (test code = 4434950159) See_Comment [Automated me ssage] The system which generated this result transmitted reference range: 0.0 - 10.0 /100 WBCs. The reference range was not used to interpret this result as normal/abnormal. NRBC x10^3 (test code = 5158920760) <0.01 See_Comment [Automated messa ge] The system which generated this result transmitted reference range: 10*3/?L. The reference range was not used to interpret this result as normal/abnormal. GRAN MAT (NEUT) % (test code = 770-8) 58.7 % IMM GRAN % (test code = 1551185001) 0.30 % LYMPH % (test code = 736-9) 24.1 % MONO % (test code = 5905-5) 15.5 % EOS % (test code = 713-8) 0.8 % BASO % (test code = 706-2) 0.6 % GRAN MAT x10^3(ANC) (test code = 2034594121) 2.12 10*3/uL 1.88-7.09 IMM GRAN x10^3 (test code = 5406115326) <0.03 0-0.06 LYMPH x10^3 (test code = 731-0) 0.87 10*3/uL 1.32-3.29 L MONO x10^3 (test code = 742-7) 0.56 10*3/uL 0.33-0.92 EOS x10^3 (test code = 711-2) 0.03 10*3/uL 0.03-0.39 BASO x10^3 (test code = 704-7) <0.03 0.01-0.07 Lab Interpretation (test code = 06771-2) Abnormal [facility] Test, [id number] 20:37:00 * Test Item Value Reference Range Interpretation Comme nts POCT PREG (test code = 1605) negative On board controls acceptable with C Line (test code = 3574) present POCT PREG LOT # (test code = 3575) [id number] POCT PREG TEST DATE ( test code = 3576) 11/10/2020 Lab Interpretation (test cod e = 01503-2) Normal [facility]"
[2024-03-01 20:24] LABS: Absolute Basophils 0.1 K/uL (0-0.5); Absolute Lymphocytes (CBC) 2.7 K/uL (0.7-4.9); Absolute Monocytes 0.7 K/uL (0.1-1.3); Absolute Neutrophil 5.2 K/uL (1.8-8.0); Eosinophils % 0.3 % (0-4.4); Hematocrit 41.3 % (36.0-45.0); Hemoglobin 14.1 g/dL (12.0-15.0); Lymphocytes % 31.1 % (15.3-44.8); MCH 29.2 pg (27.0-35.0); MCHC 34.1 g/dL (32.0-36.0); MCV 85.5 fL (80-100); MPV 7.1 fL (7.6-11.3); Monocytes % 7.6 % (3.3-12.3); Nucleated Red Blood Cells % 0.1 % (0-0); Platelets 274 thou/uL (152-406); RBC Red Blood Cell Count 4.83 M/uL (3.86-4.86); Red Cell Distribution Width 14.6 % (12.1-15.2)
[2024-03-01] MEDS ORDERED: HALOPERIDOL LACT 5 MG/ML INJ ONE (20:28)
[2024-03-01] MEDS ORDERED: METOCLOPRAMIDE 10 MG/2mL INJ ONE (20:28)
[2024-03-01] MEDS ORDERED: ONDANSETRON 4 MG/2 ML VIAL ONE (20:28)
[2024-03-01] MEDS ORDERED: KETOROLAC 30 MG/ML INJ ONE (20:28)
[2024-03-01] MEDS ORDERED: MORPHINE 4 MG/ML SYR ONE (20:29)
[2024-03-01] MEDS ORDERED: FAMOTIDINE 20 MG/2 ML VIAL IV ONE (20:29)
[2024-03-01] MEDS ORDERED: DIPHENOX/ATROP SULF 1 TAB PO ONE (20:29)
[2024-03-01] MEDS ORDERED: NA CHLORIDE 0.9% 2,000 ML ONE (20:30)
[2024-03-01 20:49] LABS: Albumin 3.8 g/dL (3.4-5.0); Anion Gap 10.2 mEq/L (5.0-15.0); Bilirubin Total 0.5 mg/dL (0.2-1.0); Potassium 3.2 mEq/L (3.5-5.1); Protein, Total 7.8 g/dL (6.4-8.2)
--- NOTE | 2024-03-01 21:13 | RAD REPORT ---
EXAM DESCRIPTION: CTAbdomen Pelvis W Contrast - 03/01/2024 9:04 pm CLINICAL HISTORY: ABD PAIN COMPARISON: Abdomen Pelvis W Contrast dated 01/30/2020; Abdomen Pelvis W Contrast dated 07/04/2019 ; Abdomen Pelvis W Contrast dated 07/18/2018; Abdomen Pelvis W Contrast dated 04/29/2016 TECHNIQUE: CT of the abdomen and pelvis was performed. All CT scans are performed using dose optimization technique as appropriate and may include automated exposure control or mA/KV adjustment according to patient size. FINDINGS: Lower chest: No acute abnormality. Liver: No acute abnormality or suspicious lesions. Hepatic steatosis Biliary: Cholecystectomy. Similar extrahepatic biliary ductal dilatation. This may be related to post cholecystectomy state. Stomach: No significant focal abnormality. Duodenum: No significant focal abnormality. Pancreas: No significant abnormality. Spleen: No significant abnormality. Adrenal: No suspicious lesions. Kidney/ureter: No hydronephrosis. No renal calculi. Retroperitoneum: No retroperitoneal adenopathy. Vascular: No aneurysm. Bowel: No significant focal abnormality. Appendectomy. Peritoneum: No ascites or free air. Bladder: Grossly unremarkable. 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 Bones: No acute fracture. Other: n/a IMPRESSION: No acute intra-abdominal or pelvic finding. Cholecystectomy. Similar extrahepatic biliary duct dilatation which may be related to the postcholecy stectomy state. Unchanged left ovarian dermoid.
--- NOTE | 2024-03-02 00:17 | ER ---
Nurse's Notes [facility] Name: Jennifer Salazar Age: 48 yrs Sex: Female : 1975 Arrival Date: 03/01/2024 Time: 19:39 Bed 18 Private MD: Diagnosis: Acute gastroenteritis, acute diarrhea Presentation: 03/01 19:45 Chief complaint: Patient states: Pt c/o nausea, vomiting, diarrhea, and diffuse tl4 abdominal pain x 3 days. Pt denies any other associated symptoms. Pt was evaluated at another ED for same but LWBS. Coronavirus screen: At this time, the client does not indicate any symptoms associated with coronavirus-19. Ebola Screen: No symptoms or risks identified at this time. Initial Sepsis Screen: Does the patient meet any 2 criteria? No. Patient's initial sepsis screen is negative. Does the patient have a suspected source of infection? No. Patient's initial sepsis screen is negative. Risk Assessment: Do you want to hurt yourself or someone else? Patient reports no desire to harm self or others. Onset of symptoms was February 26, 2024. 19:45 Method Of Arrival: EMS: [facility] tl4 19:45 Acuity: BECKY 3 tl4 Triage Assessment: 20:20 General: Appears in no apparent distress. Behavior is cooperative. Pain: Complains of tl4 pain in abdomen. EENT: No signs and/or symptoms were reported regarding the EENT system. Neuro: Level of Consciousness is awake, alert, obeys commands, Oriented to person, place, time, situation, Moves all extremities. Gait is steady, Speech is normal. Cardiovascular: Capillary refill < 3 seconds Patient's skin is warm and dry. Respiratory: Airway is patent Respiratory effort is even, unlabored, Respiratory pattern is regular, symmetrical, Breath sounds are clear bilaterally. GI: Reports upper abdominal pain, diarrhea, nausea. : No signs and/or symptoms were reported regarding the genitourinary system. Derm: No signs and/or symptoms reported regarding the dermatologic system. Musculoskeletal: No signs and/or symptoms reported regarding the musculoskeletal system. Historical: - Allergies: 20:10 Naproxen; tl4 - Home Meds: 20:10 gabapentin oral [Active]; tl4 - PMHx: 20:10 Anxiety; Bipolar disorder; Depression; Schizophrenia; tl4 - PSHx: 20:10 Appendectomy; Cholecystectomy; tubal ligation; tl4 - Immunization history:: Adult Immunizations unknown. - Infectious Disease History:: Denies. - Family history:: not pertinent. - Social history:: Smoking status: unknown. Screenin:[facility] ED Fall Risk Assessment (Adult) History of falling in the last 3 months, tl4 including since admission No falls in past 3 months (0 pts) Confusion or Disorientation No (0 pts) Intoxicated or Sedated No (0 pts) Impaired Gait No (0 pts) Mobility Assist Device Used No (0 pt) Altered Elimination No (0 pt) Score/Fall Risk Level 0 - 2 = Low Risk Oriented to surroundings, Maintained a safe environment, Educated pt \T\ family on fall prevention, incl call for assistance when getting out of bed, Assessed \T\ reinforced patient's understanding of fall precautions, Hourly rounding (assess needs \T\ fall precautionary measures) done, Used ambulatory aids as needed (educated on \T\ assisted with), Used gait belt as appropriate. Abuse screen: Denies threats or abuse. Denies injuries from another. Nutritional screening: No deficits noted. Tuberculosis screening: No symptoms or risk factors identified. Assessment: 20:22 Reassessment: No changes from previously documented assessment. Patient and/or family tl4 updated on plan of care and expected duration. Pain level reassessed. Patient is alert, oriented x 3, equal unlabored respirations, skin warm/dry/pink. 21:50 Reassessment: Patient and/or family updated on plan of care and expected duration. Pain tl4 level reassessed. Patient is alert, oriented x 3, equal unlabored respirations, skin warm/dry/pink. Pt states she does not feel better. Pt observed sleeping quietly, no distress. No vomiting or episodes of diarrhea noted. 22:45 Reassessment: Patient and/or family updated on plan of care and expected duration. Pain tl4 level reassessed. Patient is alert, oriented x 3, equal unlabored respirations, skin warm/dry/pink. Pt resting quietly. No needs identified. 03/02 00:07 Reassessment: No changes from previously documented assessment. Patient and/or family tl4 updated on plan of care and expected duration. Pain level reassessed. Patient is alert, oriented x 3, equal unlabored respirations, skin warm/dry/pink. Pt sleeping Patient states feeling better. Vital Signs: 03/01 19:45 BP 121 / 84; Pulse 67; Resp 16; Temp 98.7(O); Pulse Ox 100% ; Weight 81.65 kg; Height 5 tl4 ft. 5 in. ; Pain 10/10; 20:22 BP 121 / 95; Pulse 61; Resp 18; Pulse Ox 100% on R/A; tl4 21:20 BP 141 / 86; Pulse 61; Resp 18; Pulse Ox 99% on R/A; tl4 22:00 BP 113 / 74; Pulse 67; Resp 16; Pulse Ox 97% ; tl4 23:00 BP 127 / 82; Pulse 65; Resp 18; Pulse Ox 100% ; tl4 03/02 00:46 BP 130 / 64; Pulse 54; Resp 16; Pulse Ox 100% ; km8 03/01 19:45 Body Mass Index 29.95 (81.65 kg, 165.1 cm) tl4 03/01 19:45 Pain Scale: Adult tl4 Gallito Coma Score: 03/01 19:42 Eye Response: spontaneous(4). Motor Response: obeys commands(6). Verbal Response: sp4 oriented(5). Total: 15. ED Course: 19:41 Patient arrived in ED. rv1 19:42 Bassam Bennett MD is Attending Physician. sp4 20:05 Mike Flowers, RN is Primary Nurse. tl4 20:10 Triage completed. tl4 20:22 Arm band placed on left wrist. tl4 20:22 Patient has correct armband on for positive identification. Placed in gown. Bed in low tl4 position. Call light in reach. Side rails up X 1. Provided Education on: ED process. Client placed on continuous cardiac and pulse oximetry monitoring. NIBP monitoring applied. Door closed. Noise minimized. Lights dimmed. Moved to private room. Warm blanket given. 20:23 No provider procedures requiring assistance completed. tl4 20:24 CBC with Diff Sent. tl4 20:24 CMP Sent. tl4 20:24 Lipase Sent. tl4 20:24 Urinalysis w/ reflexes Sent. tl4 20:26 Inserted saline lock: 20 gauge in left forearm, using aseptic technique. pm6 21:04 Warm blanket given. tl4 21:05 CT Abd/Pelvis - IV Contrast Only In Process Unspecified. EDMS 03/02 00:16 Korey Chua DO is Referral Physician. sp4 00:46 IV discontinued, intact, bleeding controlled, No redness/swelling at site. Pressure km8 dressing applied. Administered Medications: 03/01 21:01 Drug: NS 0.9% IV 1000 ml IV at 1 bolus Per protocol; 1000 mL bolus Route: IV; Rate: 1 tl4 bolus; Site: left forearm; Delivery: Primary tubing; 21:49 Follow up: Response: No adverse reaction; IV Status: Completed infusion; IV Intake: tl4 1000ml 21:01 Drug: Diphenoxylate-Atropine PO 2 tabs PO once Route: PO; tl4 21:48 Follow up: Response: No adverse reaction tl4 21:02 Drug: Famotidine IVP 20 mg IVP once; dilute with 10 mL 0.9% NaCl; give over 2 minutes tl4 Route: IVP; Infused Over: 2 mins; Site: left forearm; 21:49 Follow up: Response: No adverse reaction; Pain is decreased tl4 21:02 Drug: TORadol - Ketorolac IVP 15 mg IVP once Route: IVP; Site: left forearm; tl4 21:50 Follow up: Response: No adverse reaction; Pain is decreased tl4 21:02 Drug: Ondansetron IVP 4 mg IVP once; over 2 minutes Route: IVP; Infused Over: 2 mins; tl4 Site: left forearm; 21:50 Follow up: Response: No adverse reaction; Nausea is decreased tl4 21:02 Drug: NS 0.9% IV 1000 ml IV at 125 ml/hr continuous Route: IV; Rate: 125 ml/hr; Site: tl4 left forearm; Delivery: Primary tubing; 22:48 Follow up: Response: No adverse reaction; IV Status: Completed infusion; IV Intake: tl4 1000ml 21:03 Drug: Haloperidol IVP 2.5 mg/50 mL 2.5 mg IVP once; Place patient on a ekg monitor tech tl4 Route: IVP; Infused Over: 2 mins; Site: left forearm; 21:49 Follow up: Response: No adverse reaction tl4 21:03 Drug: morphine IVP or IV 4 mg IVP once over 4 mins Route: IVP; Infused Over: 4 mins; tl4 Site: left forearm; 21:50 Follow up: Response: No adverse reaction; Pain is decreased tl4 21:03 Drug: metoCLOPramide IVP 10 mg IVP once; over 1 to 2 minutes Route: IVP; Infused Over: tl4 2 mins; Site: left forearm; 21:49 Follow up: Response: No adverse reaction; Nausea is decreased tl4 03/02 00:41 Drug: Dicyclomine PO 20 mg PO once Route: PO; 00:47 Follow up: Response: Medication administered at discharge. 00:41 Drug: [place] PO 10 mg-325 mg 1 tabs PO once Route: PO; 00:47 Follow up: Response: Medication administered at discharge. 00:41 Drug: Ondansetron PO 4 mg PO once Route: PO; :47 Follow up: Response: Medication administered at discharge. Medication: 03/01 20:22 VIS not applicable for this client. tl4 Intake: 21:49 IV: 1000ml; Total: 1000ml. tl4 22:48 IV: 1000ml; Total: 2000ml. tl4 Outcome: 03/02 00:17 Discharge ordered by . sp4 00:46 Discharged to home ambulatory, km8 00:46 Condition: good 00:46 Discharge instructions given to patient, Instructed on discharge instructions, follow up and referral plans. medication usage, Demonstrated understanding of instructions, follow-up care, medications, Prescriptions given X 3, 00:48 Patient left the ED. km8 Signatures: Dispatcher [employer] Linn Fish Sergey, MD MD sp4 Paula Conteh RN RN km8 Mike Flowers RN RN tl4 Meme Lora pm6
--- NOTE | 2024-03-02 00:17 | EDPHYS ---
Physician Documentation [facility] Name: Jennifer Salazar Age: 48 yrs Sex: Female : 1975 Arrival Date: 03/01/2024 Time: 19:39 Bed 18 Private MD: ED Physician Bassam Bennett HPI: 03/01 19:42 This 48 yrs old Female presents to ER via Unassigned with complaints of sp4 abdominal pain and diarrhea . 19:42 Patient states she has remote history of C. difficile and patient states that she is sp4 concerned about recurrent C. difficile , patient reports current symptoms of diarrhea watery stools nausea and upper abdominal pain has been there for 3 days.. 03/02 06:24 48-year-old female presents with complaint of acute onset of abdominal pain and sp4 diarrhea.. Historical: - Allergies: 03/01 20:10 Naproxen; tl4 - Home Meds: 20:10 gabapentin oral [Active]; tl4 - PMHx: 20:10 Anxiety; Bipolar disorder; Depression; Schizophrenia; tl4 - PSHx: 20:10 Appendectomy; Cholecystectomy; tubal ligation; tl4 - Immunization history:: Adult Immunizations unknown. - Infectious Disease History:: Denies. - Family history:: not pertinent. - Social history:: Smoking status: unknown. ROS: 19:42 Constitutional: Negative for fever, chills, and weight loss, positive abdominal pain sp4 and diarrhea, positive associated nausea 19:42 All other systems are negative, Exam: 19:42 Constitutional: This is a well developed, well nourished patient who is awake, alert, sp4 and in no acute distress. Head/Face: Normocephalic, atraumatic. Eyes: Pupils equal round and reactive to light, extra-ocular motions intact. Lids and lashes normal. Conjunctiva and sclera are not injected. Cornea within normal limits. Periorbital areas with no swelling, redness, or edema. ENT: Nares patent. No nasal discharge, no septal abnormalities noted. Tympanic membranes are normal and external auditory canals are clear. Oropharynx with no redness, swelling, or masses, exudates, or evidence of obstruction, uvula midline. Mucous membranes moist. Neck: Trachea midline, no thyromegaly or masses palpated, and no cervical lymphadenopathy. Supple, full range of motion without nuchal rigidity, or vertebral point tenderness. Chest/axilla: Normal chest wall appearance and motion. Nontender with no deformity. No lesions are appreciated. Cardiovascular: Regular rate and rhythm with a normal S1 and S2. No gallops, murmurs, or rubs. Normal PMI, no JVD. No pulse deficits. Respiratory: Lungs have equal breath sounds bilaterally, clear to auscultation and percussion. No rales, rhonchi or wheezes noted. No increased work of breathing, no retractions or nasal flaring. Abdomen/GI: Soft, with normal bowel sounds. No distension or tympany. No guarding or rebound. No evidence of tenderness throughout. Back: No spinal tenderness. No costovertebral tenderness. Skin: Warm, dry with normal turgor. Normal color with no rashes, no lesions, and no evidence of cellulitis. MS/ Extremity: Pulses equal, no cyanosis. Neurovascular intact. Full, normal range of motion. Neuro: Awake and alert, GCS 15, oriented to person, place, time, and situation. Cranial nerves II-XII grossly intact. Motor strength 5/5 in all extremities. Sensory grossly intact. Psych: Awake, alert, with orientation to person, place and time. Behavior, mood, and affect are within normal limits Vital Signs: 19:45 BP 121 / 84; Pulse 67; Resp 16; Temp 98.7(O); Pulse Ox 100% ; Weight 81.65 kg; Height 5 tl4 ft. 5 in. ; Pain 10/10; 20:22 BP 121 / 95; Pulse 61; Resp 18; Pulse Ox 100% on R/A; tl4 21:20 BP 141 / 86; Pulse 61; Resp 18; Pulse Ox 99% on R/A; tl4 22:00 BP 113 / 74; Pulse 67; Resp 16; Pulse Ox 97% ; tl4 23:00 BP 127 / 82; Pulse 65; Resp 18; Pulse Ox 100% ; 4 03/02 00:46 BP 130 / 64; Pulse 54; Resp 16; Pulse Ox 100% ; km8 03/01 19:45 Body Mass Index 29.95 (81.65 kg, 165.1 cm) [facility] 03/01 19:45 Pain Scale: Adult 4 Gallito Coma Score: 03/01 19:42 Eye Response: spontaneous(4). Motor Response: obeys commands(6). Verbal Response: sp4 oriented(5). Total: 15. MDM: 20:09 Patient medically screened. sp4 03/02 06:27 Differential Diagnosis altered mental status, sepsis, flu. Data reviewed: vital signs, sp4 nurses notes, old medical records, lab test result(s), radiologic studies, CT scan. Consideration of Admission/Observation Escalation of care including admission/observation considered. ED course: CT - EXAM DESCRIPTION: CTAbdomen Pelvis W Contrast - 03/01/2024 9:04 pm CLINICAL HISTORY: ABD PAIN COMPARISON: Abdomen Pelvis W Contrast dated 01/30/2020; Abdomen Pelvis W Contrast dated 07/04/2019; Abdomen Pelvis W Contrast dated 07/18/2018; Abdomen Pelvis W Contrast dated 04/29/2016 TECHNIQUE: CT of the abdomen and pelvis was performed. All CT scans are performed using dose optimization technique as appropriate and may include automated exposure control or mA/KV adjustment according to patient size. FINDINGS: Lower chest: No acute abnormality. Liver: No acute abnormality or suspicious lesions. Hepatic steatosis Biliary: Cholecystectomy. Similar extrahepatic biliary ductal dilatation. This may be related to postcholecystectomy state. Stomach: No significant focal abnormality. Duodenum: No significant focal abnormality. Pancreas: No significant abnormality. Spleen: No significant abnormality. Adrenal: No suspicious lesions. Kidney/ureter: No hydronephrosis. No renal calculi. Retroperitoneum: No retroperitoneal adenopathy. Vascular: No aneurysm. Bowel: No significant focal abnormality. Appendectomy. Peritoneum: No ascites or free air. Bladder: Grossly unremarkable. 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 Bones: No acute fracture. Other: n/a IMPRESSION: No acute intra-abdominal or pelvic finding. Cholecystectomy. Similar extrahepatic biliary duct dilatation which may be related to the postcholecystectomy state. Unchanged left ovarian dermoid. . 03/01 20:00 Order name: CBC with Diff; Complete Time: 00:10 sp4 03/01 20:00 Order name: CMP; Complete Time: 00:10 sp4 03/01 20:00 Order name: Lipase; Complete Time: 00:10 sp4 03/01 20:00 Order name: CT Abd/Pelvis - IV Contrast Only; Complete Time: 00:10 sp4 03/01 20:00 Order name: IV Saline Lock; Complete Time: 20:24 sp4 03/01 20:00 Order name: Labs collected and sent; Complete Time: 20:24 sp4 Administered Medications: 03/01 21:01 Drug: NS 0.9% IV 1000 ml IV at 1 bolus Per protocol; 1000 mL bolus Route: IV; Rate: 1 tl4 bolus; Site: left forearm; Delivery: Primary tubing; 21:49 Follow up: Response: No adverse reaction; IV Status: Completed infusion; IV Intake: tl4 1000ml 21:01 Drug: Diphenoxylate-Atropine PO 2 tabs PO once Route: PO; tl4 21:48 Follow up: Response: No adverse reaction tl4 21:02 Drug: Famotidine IVP 20 mg IVP once; dilute with 10 mL 0.9% NaCl; give over 2 minutes tl4 Route: IVP; Infused Over: 2 mins; Site: left forearm; 21:49 Follow up: Response: No adverse reaction; Pain is decreased tl4 21:02 Drug: TORadol - Ketorolac IVP 15 mg IVP once Route: IVP; Site: left forearm; tl4 21:50 Follow up: Response: No adverse reaction; Pain is decreased tl4 21:02 Drug: Ondansetron IVP 4 mg IVP once; over 2 minutes Route: IVP; Infused Over: 2 mins; tl4 Site: left forearm; 21:50 Follow up: Response: No adverse reaction; Nausea is decreased tl4 21:02 Drug: NS 0.9% IV 1000 ml IV at 125 ml/hr continuous Route: IV; Rate: 125 ml/hr; Site: tl4 left forearm; Delivery: Primary tubing; 22:48 Follow up: Response: No adverse reaction; IV Status: Completed infusion; IV Intake: tl4 1000ml 21:03 Drug: Haloperidol IVP 2.5 mg/50 mL 2.5 mg IVP once; Place patient on a manager food safety tl4 Route: IVP; Infused Over: 2 mins; Site: left forearm; 21:49 Follow up: Response: No adverse reaction tl4 21:03 Drug: morphine IVP or IV 4 mg IVP once over 4 mins Route: IVP; Infused Over: 4 mins; tl4 Site: left forearm; 21:50 Follow up: Response: No adverse reaction; Pain is decreased tl4 21:03 Drug: metoCLOPramide IVP 10 mg IVP once; over 1 to 2 minutes Route: IVP; Infused Over: tl4 2 mins; Site: left forearm; 21:49 Follow up: Response: No adverse reaction; Nausea is decreased tl4 03/02 00:41 Drug: Dicyclomine PO 20 mg PO once Route: PO; 00:47 Follow up: Response: Medication administered at discharge. 00:41 Drug: [place] PO 10 mg-325 mg 1 tabs PO once Route: PO; 00:47 Follow up: Response: Medication administered at discharge. 00:41 Drug: Ondansetron PO 4 mg PO once Route: PO; :47 Follow up: Response: Medication administered at discharge. Disposition Summary: 03/02/24 00:17 Discharge Ordered Notes: Clear liquid diet for 24 hours Location: Home sp4 Problem: new sp4 Condition: Stable sp4 Diagnosis - Acute gastroenteritis, acute diarrhea sp4 Followup: sp4 - With: Korey Chua DO - When: 7 - 10 days - Reason: Recheck today's complaints Discharge Instructions: - Discharge Summary Sheet sp4 - Viral Gastroenteritis, Adult, [id number] sp4 Forms: - Patient Portal Instructions sp4 Prescriptions: - Lomotil 2.5-0.025 mg Oral tablet - take 1 tablet ORAL route every 6 hours As needed; 30 tablet; Refills: 0, sp4 Product Selection Permitted - promethazine 25 mg Oral tablet - take 1 tablet ORAL route every 6 hours As needed; 30 tablet; Refills: 0, sp4 Product Selection Permitted - dicyclomine 20 mg Oral tablet - take 1 tablet ORAL route every 8 hours PRN abdominal pain; 30 tablet; Refills: sp4 0, Product Selection Permitted Signatures: Dispatcher [employer] EDBassam Boyer MD MD sp4 Paula Conteh RN RN km8 Mike Flowers RN RN tl4 Corrections: (The following items were deleted from the chart) 03/01 20:01 20:01 CBC+H.LAB.BRZ ordered. EDMS EDMS 20:01 20:01 COMPREHENSIVE METABOLIC PANEL+C.LAB.BRZ ordered. EDMS EDMS 20:01 20:01 LIPASE+C.LAB.BRZ ordered. EDMS EDMS 20:01 20:01 Urinalysis+U.LAB.BRZ ordered. EDMS EDMS 20:01 20:01 Abdomen Pelvis W Con+CT.RAD.BRZ ordered. EDMS EDMS 03/02 06:25 03/01 19:42 This 48 yrs old Female presents to ER via Unassigned with sp4 complaints of lisinopril overdose . sp4 03/02 06:27 03/01 19:42 Patient states she has remote history of C. difficile and patient states sp4 that she is concerned about recurrent C. difficile. sp4
[2024-03-02] MEDS ORDERED: HYDROCODONE/APAP 10/325 TAB ONE (00:34)
[2024-03-02] MEDS ORDERED: DICYCLOMINE HCL 10 MG CAP ONE (00:34)
[2024-03-02] MEDS ORDERED: ONDANSETRON 4 MG (ODT) TAB ONE (00:34)
[2024-03-02 01:38] VITALS: BP 130/64; TEMP 98.7; O2SAT 100
== END 2024-03-02 00:48 | disposition home or self-care (01) ==
LOC: ER 19:39
DX: K52.9 Noninfective gastroenteritis and colitis, unspecified (principal); Z88.5 Allergy status to narcotic agent
CPT/HCPCS: 96361; 85025; 36415; 83690; 80053; 74177; 96375; 96374; 99285; Q9967; Q0162; J1630; J2765; J2405; J7030

== ENCOUNTER 2024-07-10 14:58 | Emergency (ER) | payer OTHER ==
--- OUTSIDE RECORDS SUMMARY | 2024-07-10 15:03 | XMS REPORT | Continuity of Care Document ---
Author Name Unknown Address [address] [facility] [address] [place] [address] [facility] thconnect Address [address] [facility] [address] [place] [address] Care Team Providers Care Commodities Requirements Analyst Name Role Phone MEGAN ARAIZAH Marito Primary Care Physician Unavailab SETH Parsons Attending Clinician UnavailUTE Chatman Attending Clinician Unavailable Ute Swan DO Attending Clinician [phone] Doctor Unassigned, [place] Attending Clinician U Anali Harris Attending Clinician [phone] ANALI BOYKIN S Attending Clinician Unavailable Monie Saleem RN Attending Clinician Unavailtamiko guerrero Pob, Adc Lab Main Attending Clinician UnavailSeth Herr MD Attending Clinician [phone] Carmen, Adc Test Attending Clinician Unavailable Venkat Stark MD Attending Clinician [phone] Jaret Webb MD Attending Clinician [phone] JARET WEBB Attending Clinician Unavailable Sun Hamilton Attending Clinician [phone] Jimbo Sommers MD Attending Clinician [phone] DR GILMA FONTANEZ Attending Clinician Unava ilSETH Conley Admitting Clinician UnavailUTE Chatman Admitting Clinician Unavailable Seth Roca MD Admitting Clinician [phone] DR GILMA FONTANEZ Admitting Clinician Unava denny Payers Payer Name Policy Type Policy Number Effective Date Expirati on Date Source [facility] [id number] 2018 00:00:00 Problems Condition Name Condition Details [...] Added automatic ally from request for surgery [id number] [facility] Severe anxiety Severe anxiety Problem Active [facility] No known active problems No known active problems Disease [facility] Current moderate episode of major depressive disorder without prior episode Current moderate episode of major depressive disorder without prior episode Problem Active [facility] Bipolar affective disorder, current episode mixed, current episode severity unspecifie d Bipolar affective disorder, current episode mixed, current episode severity unspecifie d Problem Active [facility] Pain of joint of left ankle and foot Pain of joint of left ankle and foot Problem Active [facility] Closed nondisplac ed fracture of lateral malleolus of left fibula, initial encounter Closed nondisplac ed fracture of lateral malleolus of left fibula, initial encounter Problem Active [facility] Closed nondisplac ed fracture of lateral malleolus of left fibula with routine healing Closed nondisplac ed fracture of lateral malleolus of left fibula with routine healing Problem Active [facility] Left sciatic nerve pain Left sciatic nerve pain Problem Active [facility] Allergies, Adverse Reactions, Alerts Allergy Name Allergy Type Status Severity Reaction(s) Onset Date Inactive Date Treating Clinician Comments Source Tramadol Propensi ty to adverse reaction s Active Nausea and/or Vomiting 2017-11 00:00: 00 [facility] TRAMADOL DRUG INGREDI Active ITCHING 2017-11 00:00: 00 [facility] Toradol DA Active Unknown 11-28 00:00: 00 [facility] Neuronti n DA Active Unknown 11-28 00:00: 00 [facility] Naproxen DA Active Unknown 11-28 00:00: 00 [facility] Social History Social Habit Start Date Stop Date Quantity Comments Source History of tobacco use Cigarette Smoker [facility] Exposure to SARS-CoV-2 (event) 2022-12-09 00:00:00 2022-12-19 16:05:[address] [facility] Alcohol intake 2020-09-29 00:00:00 2020-09-29 00:00:00 [facility] Cigarettes smoked current (pack per day) - Reported 2020-09-09 00:00:00 2020-09-09 00:00:00 [facility] Tobacco use and exposure 2020-09-09 00:00:00 2020-09-09 00:00:00 Smokeless tobacco non-user [facility] Tobacco Comment 2020-09-09 00:00:00 2020-09-09 00:00:00 1 pack/[address] [facility] History SDOH Alcohol Frequency 2020-09-06 00:00:00 2020-09-06 00:00:[address] [facility] History SDOH Alcohol Std Drinks 2020-09-06 00:00:00 2020-09-06 00:00:[address] [facility] History SDOH Alcohol Binge 2020-09-06 00:00:00 2020-09-06 00:00:[address] [facility] Sex Assigned At 1975 00:00:00 1975 00:00:00 [facility] Smoking Status Start Date Stop Date Source Smokes tobacco daily 2020-09-09 00:00:00 [facility] Unknown if ever smoked Unive [facility] Medications Ordered Medication Name Filled Medication Name Start Date Stop Date Current Medication? Ordering Clinician Indication Dosage Frequency Signature (SIG) Comments Components Source hydrOXYzine (ATARAX) tablet 25 mg 12-19 22:00: 00 12-19 21:57 :00 No 25mg 25 mg, Oral, ONCE, 1 dose, On Sat12/19/22 at 1600, BOBBI [facility] naproxen sodium 550 mg tablet 12-19 00:00: 00 Yes [id number] 550mg Take 1 tablet by mouth in the morning and 1 tablet in the evening. Take with meals. [facility] methylPREDN ISolone 4 mg tablets 12-19 00:00: 00 Yes [id number] Take by mouth SEE-INSTRU CTIONS. follow package directions [facility] hydrOXYzine 50 mg capsule 12-19 00:00: 00 01-19 05:59 :00 No [id number] 50mg Take 1 capsule by mouth 4 (four) times daily as needed for Anxiety for up to 30 days. [facility] methocarbam oL 500 mg tablet 12-19 00:00: 00 12-25 05:59 :00 No [id number] 500mg Take 1 tablet by mouth in the morning and 1 tablet at noon and 1 tablet in the evening. Do all this for 5 days. [facility] acetaminoph en-codeine (TYLENOL-CO DEINE #3) 300-30 mg tablet 2019-11 00:00: 00 Yes [id number] 1{tbl} Take 1 tablet by mouth every 4 (four) hours as needed for Pain (scale 4-6) or Pain (scale 7-10). Indication s: chronic pain [facility] clindamycin 150 mg capsule 2019-11 00:00: 00 Yes TAKE 2 CAPSULES BY MOUTH 4 TIMES DAILY FOR 10 DAYS [facility] lactated ringers IV infusion 1,000 mL 2019-11 19:45: 00 Yes 1000mL at 75 mL/hr, 1,000 mL, IV Infusion, CONTINUOUS , Starting Sat09/12/20 at 1345, Until Discontinu ed, Routine, PACU [facility] HYDROmorpho ne (DILAUDID) injection 0.2 mg 2019-11 19:35: 58 Yes .2mg 0.2 mg, Slow IV Push, Q5MIN PRN, 10 doses, Starting 09/12/20 at 1335, Until Discontinu ed, Routine, Pain (scale 7-10), PACU
Us e approved by (Faculty): PACU USE -ANESTHESI A SERVICE-HY DROMORPHON E INJECTIONS [facility] FENTanyl PF (SUBLIMAZE (PF)) injection 25 mcg 2019-11 19:35: 58 Yes 25ug 25 mcg, Slow IV Push, Q5MIN PRN, 4 doses, Starting Sat09/12/20 at 1335, Until Discontinu ed, Routine, Pain (scale 4-6), PACU [facility] ondansetron (ZOFRAN (PF)) injection 4 mg 2019-11 19:35: 58 Yes 4mg 4 mg, Slow IV Push, PRN, 1 dose, Starting Sat09/12/20 at 1335, Until Discontinu ed, Routine, Nausea and Vomiting (N/V), PACU [facility] lactated ringers IV infusion 1,000 mL 2019-11 14:30: 00 09-12 14:30 :00 No 1000mL at 42 mL/hr, 1,000 mL, IV Infusion, ONCE, 1 dose, Sat09/12/20 at 0830, Routine, DSU Pre-op [facility] acetaminoph en-codeine 300-60 mg tablet 2019-11 00:00: 00 09-20 05:59 :00 No [id number] 1{tbl} Take 1 tablet by mouth every 6 (six) hours as needed for Pain (pain score 4-10) for up to 7 days. Indication s: acute pain [facility] clindamycin 150 mg capsule 2019-11 0- 00:00: 00 09-17 05:59 :00 No [id number] 300mg Take 2 capsules by mouth 4 (four) times daily for 10 days. [facility] divalproex 500 mg EC tablet 2019-11 00:00: 00 Yes 500mg Take 500 mg by mouth 2 (two) times daily. [facility] traZODone 100 mg tablet 2019-11 00:00: 00 Yes TAKE 1 TO 2 TABLETS BY MOUTH EVERY DAY AT BEDTIME DIRECTED NEEDED FOR INSOMNIA [facility] hydrOXYzine 50 mg capsule 2019-11 00:00: 00 12-19 00:00 :00 No TAKE 1 CAPSULE BY MOUTH THREE TIMES DAILY NEEDED FOR ACUTE ANXIETY [facility] ondansetron (ZOFRAN (PF)) injection 4 mg 06-08 14:15: 00 06-08 13:25 :00 No 4mg 4 mg, Slow IV Push, ONCE, 1 dose, Sat06/08/20 at 0915, [facility] morpHINE injection 4 mg 06-08 14:15: 06-08 13:25 :00 No 4mg 4 mg, Slow IV Push, ONCE, 1 dose, Sat06/08/20 at 0915, STAT [facility] LORazepam (ATIVAN) tablet 2 mg 07-17 00:34: 00 07-17 00:37 :00 No 2mg 2 mg, Oral, ONCE, 1 dose, [facility] 07/16/19 at 1945, [facility] LORazepam (ATIVAN) tablet 2 mg 07-16 20:56: 00 07-16 21:02 :00 No 2mg 2 mg, Oral, ONCE, 1 dose, [facility] 07/16/19 at 1600, [facility] Tylenol # 3 Tylenol # 3 04-02 00:00: 00 06-06 00:00 :00 No Mac Osorio one tab [facility] Acetaminoph en-Codeine #3 Acetaminoph en-Codeine #3 Yes Mac Osorio not defined [facility] Lorazepam Lorazepam Yes Mac Osorio 1 tablet at bedtime as needed [facility] No known medications No Un tin [facility] No known medications No Un tin [facility] No known medications No Un tin [facility] Effexor Effexor Yes Mac Osorio 1 tablet with food [facility] Klonopin Klonopin Yes Mac Osorio 1 tablet at bedtime [facility] Zoloft Zoloft Yes Mac Osorio 2 tab [facility] Depakote Depakote Yes Mac Osorio not defined [facility] Vital Signs Vital Name Observation Time Observation Value Comments S silvino Body temperature 2022-12-19 21:47:[address] [facility] Systolic blood pressure 2022-12-19 21:43:00 105 mm[Hg] [facility] Diastolic blood pressure 2022-12-19 21:43:00 71 mm[Hg] [facility] Heart rate 2022-12-19 21:43:00 99 /min [facility] Res[facility] rate 2022-12-19 21:43:00 22 /min [facility] Body weight 2022-12-19 21:43:00 61.236 kg [facility] BMI 2022-12-19 21:43:00 22.12 kg/m2 [facility] Oxygen saturation in Arterial blood by Pulse oximetry 2022-12-19 21:43:00 97 /min [facility] Systolic blood pressure 2020-09-29 19:53:00 118 mm[Hg] [facility] Diastolic blood pressure 2020-09-29 19:53:00 77 mm[Hg] [facility] Heart rate 2020-09-29 19:53:00 79 /min Unive [facility] Body height 2020-09-29 19:53:00 166.4 cm [facility] Systolic blood pressure 2020-09-12 20:05:00 136 mm[Hg] [facility] Diastolic blood pressure 2020-09-12 20:05:00 85 mm[Hg] [facility] Heart rate 2020-09-12 20:05:00 51 /min Unive [facility] Body temperature 2020-09-12 20:05:[address] [facility] Respiratory rate 2020-09-12 20:05:00 19 /min [facility] Oxygen saturation in Arterial blood by Pulse oximetry 2020-09-12 20:05:00 100 /min [facility] Body height 2020-09-08 15:11:00 165.1 cm [facility] Body weight 2020-09-08 15:11:00 61.2 kg [facility] BMI 2020-09-08 15:11:00 22.45 kg/m2 [facility] Systolic blood pressure 2020-09-06 16:15:00 115 mm[Hg] [facility] Diastolic blood pressure 2020-09-06 16:15:00 80 mm[Hg] [facility] Heart rate 2020-09-06 16:15:00 69 /min Unive [facility] Body height 2020-09-06 16:15:00 165.1 cm [facility] Body weight 2020-09-06 16:15:00 61.236 kg [facility] BMI 2020-09-06 16:15:00 22.47 kg/m2 [facility] Systolic blood pressure 2020-06-08 12:56:00 120 mm[Hg] [facility] Diastolic blood pressure 2020-06-08 12:56:00 79 mm[Hg] [facility] Heart rate 2020-06-08 12:56:00 76 /min Unive [facility] Body temperature 2020-06-08 12:56:[address] [facility] Respiratory rate 2020-06-08 12:56:00 16 /min [facility] Body weight 2020-06-08 12:56:[address] [facility] BMI 2020-06-08 12:56:00 24.96 kg/m2 [facility] Oxygen saturation in Arterial blood by Pulse oximetry 2020-06-08 12:56:00 98 /min [facility] Systolic blood pressure 2020-04-06 16:00:00 126 mm[Hg] [facility] Diastolic blood pressure 2020-04-06 16:00:00 71 mm[Hg] [facility] Heart rate 2020-04-06 16:00:00 74 /min Unive [facility] Body temperature 2020-04-06 16:00:[address] [facility] Respiratory rate 2020-04-06 16:00:00 20 /min [facility] Body height 2020-04-06 16:00:00 165.1 cm [facility] Body weight 2020-04-06 16:00:[address] [facility] BMI 2020-04-06 16:00:00 24.96 kg/m2 [facility] Oxygen saturation in Arterial blood by Pulse oximetry 2020-04-06 16:00:00 100 /min [facility] Systolic blood pressure 2019-07-17 00:00:00 132 mm[Hg] [facility] Diastolic blood pressure 2019-07-17 00:00:00 76 mm[Hg] [facility] Heart rate 2019-07-17 00:00:00 66 /min [facility] Respiratory rate 2019-07-17 00:00:00 18 /min [facility] Oxygen saturation in Arterial blood by Pulse oximetry 2019-07-17 00:00:00 98 /min [facility] Body temperature 2019-07-16 20:03:[address] [facility] Body weight 2019-07-16 20:02:[address] [facility] Weight 2013-04-14 00:39:00 752.96 KG Height 2013-04-14 00:39:00 165.1 CM Procedures Procedure Date / Time Performed Performing Clinician Source NOTICE OF PRIVACY PRACTICES 2021-07-02 19:00:14 Doctor Unassigned, [place] [facility] CONSENT/REFUSAL FOR DIAGNOSIS AND TREATMENT 2021-07-02 18:59:56 Doctor Unassigned, [place] [facility] XR FINGERS 2 VW RIGHT 2020-09-29 18:46:[address] [facility] FL TIME OR (NON-REPORTABLE) 2020-09-12 19:39:[address] [facility] FL TIME OR (NON-REPORTABLE) 2020-09-12 19:20:[address] [facility] DAY SURGERY - ADC 2020-09-12 06:01:00 Doctor Ana ssigned, [place] [facility] XR CHEST 2 VW 2020-09-09 19:40:29 [facility]REFUS[facility] FOR DIAGNOSIS AND TREATMENT 2020-09-09 19:21:16 Doctor Unassigned, [place] [facility] ASSIGNMENT OF BENEFITS 2020-09-09 19:18:53 Docto r Unassigned, [place] [facility] DSU PRE-OP 2020-09-08 05:01:00 Doctor Unass igned, [place] [facility] ASSIGNMENT OF BENEFITS 2020-09-06 16:09:16 Docto r Unassigned, [place] [facility] POCT TEST 2020-06-08 13:22:00 [facility] 2020-06-08 13:22:00 Jaret Webb [facility] HEPATIC FUNCTION PANEL (55072) (ALB,T.PRO,BILI T,BU/BC,ALT,AST,ALK PHOS) 2020-06-08 13:22[facility]00 [facility] (NA, K, CL, CO2, GLUCOSE, BUN, CREATININE, CA) 2020-06-08 13:22:00 Tracey [facility] CBC WITH DIFF 2020-06-08 13:22:00 Jaret Webb [facility] URINALYSIS 2020-06-08 13:22:00 Jaret Webb [facility] RAPID STREP SCREEN FOR GROUP A 2020-04-06 16:23:[address] [facility] NOTICE OF PRIVACY PRACTICES 2020-04-06 15:48:09 Doctor Unassigned, [place] [facility] CONSENT/REFUSAL FOR DIAGNOSIS AND TREATMENT 2020-04-06 15:47:58 Doctor Unassigned, [place] [facility] FREE T4 2019-07-16 20:51:[address] [facility] THYROID STIMULATING HORMONE 2019-07-16 20:51:[address] [facility] HEPATIC FUNCTION PANEL ([id number]) (ALB,T.PRO,BILI T,BU/BC,ALT,AST,ALK PHOS) 2019-07-16 20:51:[address] [facility] BASIC METABOLIC PANEL (NA, K, CL, CO2, GLUCOSE, BUN, CREATININE, CA) 2019-07-16 20:51:[address] [facility] SALICYLATE 2019-07-16 20:51:[address] [facility] ETHANOL 2019-07-16 20:51:[address] [facility] CBC WITH DIFFERENTIAL 2019-07-16 20:51:[address] [facility] URINALYSIS 2019-07-16 20:51:[address] [facility] ADC / LCC - DRUG SCREEN TRIAGE 2019-07-16 20:51:[address] [facility] POCT TEST 2019-07-16 20:37:[address] [facility] EKG-12 LEAD 2019-07-16 20:28:[address] [facility] NOTICE OF PRIVACY PRACTICES 2019-07-16 19:39:12 Doctor Unassigned, [place] [facility] CONSENT/REFUSAL FOR DIAGNOSIS AND TREATMENT 2019-07-16 19:38:59 Doctor Unassigned, [place] [facility] SKIN CLOSURE NEC 2013-04-14 00:00:00 [facility] Encounters Start Date/Time End Date/Time Encounter Type Admission Type Attending Clinicians Care Facility Care Department Encounter ID Source 2021-09-11 17:13:34 Emergency [facility] [id number] [facility] 2021-09-09 01:42:20 Outpatient SETH MCCANN [facility] PADMINI [id number] [facility] 2022-12-19 15:47:00 2022-12-19 18:02:00 Emergency X UTE SWAN [facility] ERT [id number] [facility] 2022-12-19 15:47:00 2022-12-19 18:02:00 Emergency Ute Swan [facility] [id number] 350.1.13.10 4.2.7.2.686 [id number] [facility] 2021-07-02 14:21:00 2021-07-02 15:17:00 Emergency [facility] [id number] 350.1.13.10 4.2.7.2.686 [id number] [facility] 2021-07-02 00:00:00 2021-07-02 00:00:00 Orders Only Doctor Unassigned, [place] [facility] 1.2.840.114 350.1.13.10 4.2.7.2.686 [id number] [facility] 2021-07-02 00:00:00 2021-07-02 00:00:00 Orders Only Doctor Unassigned, [place] [facility] 1.2.840.114 350.1.13.10 4.2.7.2.686 [id number] 2020-10-25 00:00:00 2020-10-25 00:00:00 Telephone [facility] [place] 1.2.840.114 350.1.13.10 4.2.7.2.686 [id number] [facility] 2020-10-25 00:00:00 2020-10-25 00:00:00 Telephone [facility] [place] 1.2.840.114 350.1.13.10 4.2.7.2.686 [id number] 2020-10-17 14:00:00 2020-10-17 14:00:00 Outpatient R ANALI BOYKIN [facility] [id number] [facility] 2020-10-14 00:00:00 2020-10-14 00:00:00 Telephone Lucretia [facility] 1.2.840.114 350.1.13.10 4.2.7.2.686 [id number] [facility] 2020-10-14 00:00:00 2020-10-14 00:00:00 Nurse Triage Monie Saleem [facility] 1.2.840.114 350.1.13.10 4.2.7.2.686 [id number] [facility] 2020-10-14 00:00:00 2020-10-14 00:00:00 Telephone Boykin, [facility] 1.20.114 350.1.13.10 4.2.7.2.686 [id number] 2020-10-14 00:00:00 2020-10-14 00:00:00 Nurse Triage Monie Saleem [facility] 1.0.114 350.1.13.10 4.2.7.2.686 [id number] 2020-10-13 10:30:00 2020-10-13 10:30:00 Outpatient Anuj [facility] [id number] [facility] 2020-10-04 00:00:00 2020-10-04 00:00:00 Clinic Assessment [facility] 1.840.114 350.1.13.10 4.2.7.2.686 [id number] [facility] 2020-10-04 00:00:00 2020-10-04 00:00:00 Clinic Assessment [facility] 1.20.114 350.1.13.10 4.2.7.2.686 [id number] 2020-10-03 14:00:00 2020-10-03 14:00:00 Outpatient Anuj [facility] [id number] [facility] 2020-09-30 08:00:00 2020-09-30 08:00:00 Outpatient Anuj [facility] [id number] [facility] 2020-09-30 07:42:57 2020-09-30 07:57:57 Director Of Laboratory Operations Visit Pob, Adc Lab Main [facility] 1.2.114 350.1.13.10 4.2.7.2.686 [id number] [facility] 2020-09-30 00:00:00 2020-09-30 00:00:00 Telephone [facility] [place] 1.2.840.114 350.1.13.10 4.2.7.2.686 [id number] [facility] 2020-09-30 00:00:00 2020-09-30 00:00:00 Telephone Anali Boykin [facility] [place] 1.2.840.114 350.1.13.10 4.2.7.2.686 [id number] 2020-09-29 12:28:56 2020-09-29 23:59:00 Hospital Encounter Seth Roca [facility] 1.2.840.114 350.1.13.10 4.2.7.2.686 [id number] [facility] 2020-09-29 13:51:51 2020-09-29 15:05:33 Office Visit Anali Boykin [facility] [place] 1.2.840.114 350.1.13.10 4.2.7.2.686 [id number] [facility] 2020-09-29 13:45:00 2020-09-29 13:45:00 Outpatient R ANALI BOYKIN [facility] [id number] [facility] 2020-09-29 00:00:00 2020-09-29 00:00:00 Telephone Anali Boykin [facility] [place] 1.2.840.114 350.1.13.10 4.2.7.2.686 [id number] [facility] 2020-09-28 00:00:00 2020-09-28 00:00:00 Telephone Seth Roca [facility] [place] 1.2.840.114 350.1.13.10 4.2.7.2.686 [id number] [facility] 2020-09-28 00:00:00 2020-09-28 00:00:00 Telephone Seth Roca [facility] [place] 1.2.840.114 350.1.13.10 4.2.7.2.686 [id number] [facility] 2020-09-27 00:00:00 2020-09-27 00:00:00 [facility] [place] 1.2.840.114 350.1.13.10 4.2.7.2.686 [id number] [facility] 2020-09-26 16:00:00 2020-09-26 16:00:00 Outpatient R [facility] [id number] [facility] 2020-09-26 00:00:00 2020-09-26 00:00:00 Telephone [facility] Surgical Special [place] 1.2840.114 350.1.13.10 4.2.7.2.686 [id number] [facility] 2020-09-23 10:15:00 2020-09-23 10:15:00 Outpatient R ROCASETH WIGGINS [facility] [id number] [facility] 2020-09-19 00:00:00 2020-09-19 00:00:00 Telephone Seth Roca [facility] [place] 1.2840.114 350.1.13.10 4.2.7.2.686 [id number] [facility] 2020-09-12 08:14:00 2020-09-12 14:20:00 Hospital Encounter Seth Roca [facility] [place] 1.2.840.114 350.1.13.10 4.2.7.2.686 [id number] [facility] 2020-09-12 00:00:00 2020-09-12 00:00:00 Orders Only Doctor Unassigned, [place] [facility] 1.2.840.114 350.1.13.10 4.2.7.2.686 [id number] [facility] 2020-09-09 14:17:36 2020-09-09 23:59:00 Hospital Encounter Seth Roca [facility] 1.20.114 350.1.13.10 4.2.7.2.686 [id number] [facility] 2020-09-09 14:16:24 2020-09-09 14:31:24 Director Of Laboratory Operations Visit Pob, Adc Lab Main Seth Roca [facility] Professio [facility] 1..114 350.1.13.10 4.2.7.2.686 [id number] [facility] 2020-09-09 14:15:01 2020-09-09 14:30:01 Laboratory Only Only, Adc Test BraydonjavadVenkat [facility] 1..114 350.1.13.10 4.2.7.2.686 [id number] [facility] 2020-09-09 14:00:00 2020-09-09 14:00:00 Outpatient R SETH ROCA [facility] [id number] [facility] 2020-09-08 00:00:00 2020-09-08 00:00:00 Orders Only Doctor Unassigned, [place] [facility] 1..114 350.1.13.10 4.2.7.2.686 [id number] [id number] [facility] 2020-09-07 00:00:00 2020-09-07 00:00:00 Prep For Surgery Seth Roca [facility] Specialhunter [facility] 1..114 350.1.13.10 4.2.7.2.686 [id number] [facility] 2020-09-06 11:10:09 2020-09-06 11:25:09 Office Visit Anali Boykin [facility] Surgical Specialti rocco [place] 1.20.114 350.1.13.10 4.2.7.2.686 [id number] [facility] 2020-09-06 10:00:00 2020-09-06 10:00:00 Outpatient ANALI COOK [facility] [id number] [facility] 2020-09-06 00:00:00 2020-09-06 00:00:00 Orders Only Doctor Unassigned, [place] [facility] 1.2840.114 350.1.13.10 4.2.7.2.686 [id number] [id number] [facility] 2020-06-08 07:57:26 2020-06-08 09:17:00 Emergency Tracey [facility] 1.284.114 350.1.13.10 4.2.7.2.686 [id number] [facility] 2020-06-08 07:57:26 2020-06-08 07:57:26 Emergency X JARET WEBB [facility] ERT [id number] [facility] 2020-04-06 11:02:11 2020-04-06 12:59:00 Emergency Matthew Sun [facility] 1.284.114 350.1.13.10 4.2.7.2.686 [id number] [facility] 2020-04-06 10:49:00 2020-04-06 10:49:00 Emergency X [facility] ERT [id number] [facility] 2020-04-06 00:00:00 2020-04-06 00:00:00 Orders Only Doctor Unassigned, [place] [facility] 1.2.114 350.1.13.10 4.2.7.2.686 [id number] [id number] [facility] 2019-07-16 15:08:41 2019-07-16 20:56:00 Emergency Jimbo Sommers [facility] 1.2.114 350.1.13.10 4.2.7.2.686 [id number] [facility] 2019-05-20 16:15:00 2019-05-20 16:15:00 Outpatient [facility] [id number] [facility] 2019-05-07 15:30:00 2019-05-07 15:30:00 Outpatient [facility] [id number] [facility] 2019-05-07 14:28:00 2019-05-07 14:28:00 Outpatient [facility] [id number] [facility] 2019-05-06 11:28:00 2019-05-06 11:28:00 Outpatient [facility] [id number] [facility] 2019-05-05 14:00:00 2019-05-05 14:00:00 Outpatient [facility] [id number] [facility] 2019-04-28 09:30:00 2019-04-28 09:30:00 Outpatient [facility] [id number] [facility] 2019-04-24 10:53:00 2019-04-24 10:53:00 Outpatient [facility] [id number] [facility] 2019-04-24 10:06:00 2019-04-24 10:06:00 Outpatient [facility] [id number] [facility] 2019-01-12 10:00:00 2019-01-12 10:00:00 [place] [facility] [place] [facility] Medicine [id number] [facility] 2013-04-14 00:19:00 2013-04-14 03:12:00 Emergency E GILMA FONTANEZ [facility] [id number] [facility] Results Test Description Test Time Test [...] of middle phalanx of the right middlefinger. [facility], Radiant Results Inft User - 09/29/2020 12:50 [...] of middle phalanx of the right middlefinger. [facility] [place] TIME OR (NON-REPORTABLE) 19:40:57 These images do not require a Radiology diagnostic report. [facility] [place] TIME OR (NON-REPORTABLE) 19:23:57 These images do not require a Radiology diagnostic report. [facility] XR CHEST 2 VW 19:56:49 No evidence of acute cardiopulmonary disease.2 VIEWS OF THE CHEST HISTORY: pre-op COMPARISON: none TECHNIQUE: PA and lateral views of the chest. FINDINGS: The lungs are clear. There is no focal consolidation, pleural effusion orpneumothorax. The cardiomediastinal silhouette is within normal limits. ?No acute bonyabnormalities are seen. [facility], Radiant Results Inft User - 09/09/2020 2:57 PM CDT2 VIEWS OF THE CHESTHISTORY: pre-op COMPARISON: noneTECHNIQUE: PA and lateral views of the chest.FINDINGS:The lungs are clear. There is no focal consolidation, pleural effusion orpneumothorax.The cardiomediastinal silhouette is within normal limits. No acute bonyabnormalities are seen.IMPRESSIONNo evidence of acute cardiopulmonary disease. [facility] ([facility]B, T.PRO, BILI T, BU/BC, ALT, AST, ALK PHOS)2020-06-08 13:47:00* Test Item Value Reference Range Interpretation Comme nts TOTAL BILI (test code = 1370870901) 0.3 mg/dL 0.1-1.1 BILI UNCON (test code = 9144130478) 0.5 mg/dL 0.1-1.1 BILI CONJ (test code = 1337306348) 0.0 mg/dL 0-0.3 T PROTEIN (test code = 9599397828) 7.1 g/dL 6.3-8.2 ALBUMIN (test code = 5756394256) 4.2 g/dL 3.5-5 ALK PHOS (test code = 9925305671) 53 U/L 34-122 ALTv (test code = 1742-6) 22 U/L 5-35 AST(SGOT) (test code = 7975375402) 32 U/L 13-40 Lab Interpretation (test cod e = 11713-7) Normal [facility] [id number] 13:47:00* Test Item Value Reference Range Interpretation Comme nts LIPASE (test code = 4809227499) 142 U/L 0-220 Lab Interpretation (test cod e = 46884-0) Normal [facility]inalysis2020-07-29 13:47:00* Test Item Value Reference Range Interpretation Comme nts APPEARANCE (test code = 1072567819) Clear Clear COLOR (test code = 2817520044) Straw Yellow A PH (test code = 7108397854) 4.8-8.0 SP GRAVITY (test code = 2250438510) 1.003-1.030 L GLU U QUAL (test code = 8646009414) Normal Normal BLOOD (test code = 2729087637) Negative Negative KETONES (test code = 3084824312) Negative Negative PROTEIN (test code = 2887-8) Negative Negative UROBILIN (test code = 5230745888) Normal Normal BILIRUBIN (test code = 5364015697) Negative Negative NITRITE (test code = 9862664132) Negative Negative LEUK MAYNOR (test code = 5523301828) Negative Negative RBC/HPF (test code = 2021661630) <1 See_Comment [Automated messa ge] The system which generated this result transmitted reference range: 0 - 3 HPF. The reference range was not used to interpret this result as normal/abnormal. WBC/HPF (test code = 4230881252) <1 See_Comment [Automated messa ge] The system which generated this result transmitted reference range: 0 - 5 HPF. The reference range was not used to interpret this result as normal/abnormal. BACTERIA (test code = 9175328212) Negative Negative SQ EPITH (test code = 0697126940) <1 See_Comment [Automated messa ge] The system which generated this result transmitted reference range: <=2 HPF. The reference range was not used to interpret this result as normal/abnormal. Lab Interpretation (test code = 26672-0) Abnormal [facility] with [id number] 13:37:00* Test Item Value Reference Range Interpretation [...] g/dL 31.6-35.1 L RDW-SD (test code = 59917-4) 42.9 fL 39-49.9 RDW-CV (test code = 788-0) 16.6 % 12-15.5 H PLT (test code = 777-3) See_Comment [Automated messa ge] The system which generated this result transmitted reference range: 166 - 358 10*3/?L. The reference range was not used to interpret this result as normal/abnormal. MPV (test code = 49842-0) 9.3 fL 9.5-12.9 L NRBC/100 WBC (test code = 9106187464) See_Comment [Automated [employer] ssage] The system which generated this result transmitted reference range: 0.0 - 10.0 /100 WBCs. The reference range was not used to interpret this result as normal/abnormal. NRBC x10^3 (test code = 1440892314) <0.01 See_Comment [Automated messa ge] The system which generated this result transmitted reference range: 10*3/?L. The reference range was not used to interpret this result as normal/abnormal. GRAN MAT (NEUT) % (test code = 770-8) 55.7 % IMM GRAN % (test code = 1232767102) 0.20 % LYMPH % (test code = 736-9) 30.8 % MONO % (test code = 5905-5) 10.2 % EOS % (test code = 713-8) 2.1 % BASO % (test code = 706-2) 1.0 % GRAN MAT x10^3(ANC) (test code = 9632014214) 3.40 10*3/uL 1.88-7.09 IMM GRAN x10^3 (test code = 9122265158) <0.03 0-0.06 LYMPH x10^3 (test code = 731-0) 1.88 10*3/uL 1.32-3.29 MONO x10^3 (test code = 742-7) 0.62 10*3/uL 0.33-0.92 EOS x10^3 (test code = 711-2) 0.13 10*3/uL 0.03-0.39 BASO x10^3 (test code = 704-7) 0.06 10*3/uL 0.01-0.07 Lab Interpretation (test code = 55267-4) [facility]normal [facility] [id number] 13:22:00* Test Item Value Reference Range Interpretation Comme nts POCT PREG (test code = 1605) NEGATIVE On board controls acceptable with C Line (test code = 3574) PRESENT POCT PREG LOT # (test code = 3575) [id number] POCT PREG TEST DATE ( test code = 3576) 08/10/2021 Lab Interpretation (test cod e = 29468-7) Normal [facility] CenterRAD [facility]REP SCREEN FOR GROUP [id number] 16:56:00* Test Item Value Reference Range Interpretation Comme nts Streptococcus pyogenes (grou p A) antigen (test code = 13853-3) Negative Negative Lab Interpretation (test cod e = 62090-6) Normal [facility] CenterUrinalysis2019-09-05 22:17:00* Test Item Value Reference Range Interpretation Comme nts APPEARANCE (test code = 4153298071) Clear Clear COLOR (test code = 8502910685) Yellow Yellow PH (test code = 7332676248) 4.8-8.0 SP GRAVITY (test code = 4036435724) 1.003-1.030 GLU U QUAL (test code = 7407134441) Negative Negative BLOOD (test code = 4730222961) Trace Negative A KETONES (test code = 4236945951) Trace Negative A PROTEIN (test code = 2887-8) Negative Negative UROBILIN (test code = 0963567710) 0.2 mg/dL See_Comment [Automated [employer]] The system which generated this result transmitted reference range: 0-1.0 mg/dL. The reference range was not used to interpret this result as normal/abnormal. BILIRUBIN (test code = 7943130771) Small Negative A NITRITE (test code = 7824126030) Negative Negative LEUK MAYNOR (test code = 8273741460) Negative Negative RBC/HPF (test code = 6350729700) See_Comment [Automated [employer]] The system which generated this result transmitted reference range: 0 - 3 HPF. The reference range was not used to interpret this result as normal/abnormal. WBC/HPF (test code = 3909530003) See_Comment [Automated [employer]] The system which generated this result transmitted reference range: 0 - 5 HPF. The reference range was not used to interpret this result as normal/abnormal. BACTERIA (test code = 5694864010) Negative Negative AMORPHOUS (test code = 0026062195) Few HPF SQ EPITH (test code = 5584155586) HPF Ictotest (test code = 7122471855) Negative Lab Interpretation (test code = 75228-9) Abnormal [facility] CenterTHYROID STIMULATING [id number] 22:15:00 * Test Item Value Reference Range Interpretation Comme nts TSH (test code = 7001118848) See_Comment [Automated [employer]] The system which generated this result transmitted reference range: 0.45 - 4.70 mIU/L. The reference range was not used to interpret this result as normal/abnormal. Lab Interpretation (test code = 26525-6) Normal [facility] CenterFREE [id number] 22:01:00* Test Item Value Reference Range Interpretation Comme nts FREE T4 (test code = 1454080649) 1.34 ng/dL 0.78-2.2 Lab Interpretation (test cod e = 24371-1) Normal [facility] - DRUG SCREEN [id number] 21:59:00* Test Item Value Reference Range Interpretation Comme nts BENZO U (test code = 3269329149) Presumptive Positive Negative A ILEANA U (test code = 3208051343) Negative Negative AMPHET (test code = 1745155008) Negative Negative THC (test code = 7602145691) Negative Negative METHADONE (test code = 4200253200) Negative Negative Meth U (test code = 2718834911) Negative Negative OPIATES (test code = 7210397797) Negative Negative Cocaine Metabolite (test code = 2111509112) Presumptive Positive Negative A PROPOXY (test code = 9135448607) Negative Negative Tric U (test code = 7874977583) Negative Negative PCP (test code = 6655618726) Negative Negative OXYCOD (test code = 6243355509) Negative Negative LUCY (test code = LUCY) [...] legal testing). Lab Interpretation (test code = 15917-1) Abnormal [facility] CenterETHANOL2019-09-05 21:54:00* Test Item Value Reference Range Interpretation Comme nts ALCOHOL (test code = 9272184764) <10 mg/dL LUCY (test code = LUCY) <10 Msapimng40-221 Toxic>100 Depression of BET TAKER>[address] [facility] CenterSALICYLATE2019-09-05 21:54:00* Test Item Value Reference Range Interpretation Comme nts SALICYLATE (test code = 9278103229) <10 mg/L LUCY (test code = LUCY) Therapeutic Range: ? Analgesic and Antipyretic Use? 20-100 mg/L? Anti-Inflammatory Use? 100-250 mg/LToxic Range:? Greater than 300 mg/L [facility] CenterACETAMINOPHEN2019-09-05 21:54:00* Test Item Value Reference Range Interpretation Comme nts ACETAMINOP (test code = 6277983810) <10.0 10-30 L LUCY (test code = LUCY) Toxic: Greater derek n 200 ug/mL @ 4 hour post ingestion or greater than 50 ug/mL @ 12 hour post ingestion Lab Interpretation (test code = 84954-2) Abnormal [facility] Function [facility] (ALB, T.PRO, BILI T, BU/BC, ALT, AST, ALK PHOS)2019-07-16 21:43:00* Test Item Value Reference Range Interpretation Comme nts TOTAL BILI (test code = 0464596251) 0.2 mg/dL 0.1-1.1 BILI UNCON (test code = 0943207845) 0.2 mg/dL 0.1-1.1 BILI CONJ (test code = 8797045517) 0.0 mg/dL 0-0.3 T PROTEIN (test code = 9641921096) 7.2 g/dL 6.3-8.2 ALBUMIN (test code = 6950600448) 4.4 g/dL 3.5-5 ALK PHOS (test code = 7745440099) 54 U/L 34-122 ALT(SGPT) (test code = 5717522212) 26 U/L 9-51 AST(SGOT) (test code = 1963609126) 25 U/L 13-40 Lab Interpretation (test cod e = 64189-3) Normal [facility] Metabolic Panel (NA, K, CL, CO2, GLUCOSE, BUN, CREATININE, CA)2019-07-16 21:42:00* Test Item Value Reference Range Interpretation Comme nts NA (test code = 6101925684) 148 mmol/L 135-145 H K (test code = 6660410960) 3.4 mmol/L 3.5-5 L CL (test code = 8398094153) 113 mmol/L 98-108 H CO2 TOTAL (test code = 2364519396) 25 mmol/L 23-31 AGAP (test code = 7422558999) 2-16 BUN (test code = 6556447932) 11 mg/dL 7-23 GLUCOSE (test code = 0954205324) 98 mg/dL 70-110 CREATININE (test code = 8752999320) 0.78 mg/dL 0.5-1.04 CALCIUM (test code = 8500441383) 9.2 mg/dL 8.6-10.6 eGFR Calculation (Non-) (test code = 4198013538) mL/min/1.73m2 eGFR Calculation () (test code = 8840371008) mL/min/1.73m2 LUCY (test code = LUCY) Association [...] imaging tests). Lab Interpretation (test code = 55735-3) Abnormal [facility] WITH [id number] 21:24:00* Test Item Value Reference Range Interpretation Comme nts WBC (test code = 6690-2) See_Comment L [ponUp] The system which generated this result transmitted reference range: 4.30 - 11.10 10*3/?L. The reference range was not used to interpret this result as normal/abnormal. RBC (test code = 789-8) See_Comment [[employer]onUp] The system which generated this result transmitted [...] g/dL 31.6-35.1 L RDW-SD (test code = 14125-4) 51.6 fL 39-49.9 H RDW-CV (test code = 788-0) 20.4 % 12-15.5 H PLT (test code = 777-3) See_Comment [ponUp] The system which generated this result transmitted reference range: 166 - 358 10*3/?L. The reference range was not used to interpret this result as normal/abnormal. MPV (test code = 77884-5) 9.2 fL 9.5-12.9 L NRBC/100 WBC (test code = 9326271793) See_Comment [Automated me ssage] The system which generated this result transmitted reference range: 0.0 - 10.0 /100 WBCs. The reference range was not used to interpret this result as normal/abnormal. NRBC x10^3 (test code = 5690475835) <0.01 See_Comment [Automated messa ge] The system which generated this result transmitted reference range: 10*3/?L. The reference range was not used to interpret this result as normal/abnormal. GRAN MAT (NEUT) % (test code = 770-8) 58.7 % IMM GRAN % (test code = 7751880006) 0.30 % LYMPH % (test code = 736-9) 24.1 % MONO % (test code = 5905-5) 15.5 % EOS % (test code = 713-8) 0.8 % BASO % (test code = 706-2) 0.6 % GRAN MAT x10^3(ANC) (test code = 3270696893) 2.12 10*3/uL 1.88-7.09 IMM GRAN x10^3 (test code = 4141531048) <0.03 0-0.06 LYMPH x10^3 (test code = 731-0) 0.87 10*3/uL 1.32-3.29 L MONO x10^3 (test code = 742-7) 0.56 10*3/uL 0.33-0.92 EOS x10^3 (test code = 711-2) 0.03 10*3/uL 0.03-0.39 BASO x10^3 (test code = 704-7) <0.03 0.01-0.07 Lab Interpretation (test code = 00448-4) Abnormal [facility] Test, [id number] 20:37:00 * Test Item Value Reference Range Interpretation Comme nts POCT PREG (test code = 1605) negative On board controls acceptable with C Line (test code = 3574) present POCT PREG LOT # (test code = 3575) [id number] POCT PREG TEST DATE ( test code = 3576) 11/10/2020 Lab Interpretation (test cod e = 95439-5) [facility]"
--- NOTE | 2024-07-10 16:22 | RAD REPORT ---
EXAM DESCRIPTION: CT - CTHCSPWOC - 07/10/2024 4:02 pm CLINICAL HISTORY: Trauma, head and neck injury. head injury COMPARISON: <Comparisons> TECHNIQUE: Axial 5 mm thick images of the head were obtained. Axial 2 mm thick images of the cervical spine were obtained with sagittal and coronal reconstruction images generated and reviewed. All CT scans are performed using dose optimization technique as appropriate and may include automated exposure control or mA/KV adjustment according to patient size. FINDINGS: CT HEAD WITHOUT CONTRAST: No acute hemorrhage, hydrocephalus or extra-axial collection is identified.No areas of brain edema or midline shift. The paranasal sinuses and mastoids are clear.The calvarium is intact. Mild nasal bone fracture noted. CT CERVICAL SPINE WITHOUT CONTRAST: No fracture or subluxation.Mild lower cervical degenerative changes, most notable at C5-6.No preverte bral soft tissues swelling is identified. IMPRESSION: No acute intracranial or cervical spine findings. Mild lower cervical degenerative changes. Mild nasal bone fracture.
--- NOTE | 2024-07-10 16:28 | RAD REPORT ---
EXAM DESCRIPTION: CT - Chest Abd Pelvis Wo Con - 07/10/2024 4:02 pm CLINICAL HISTORY: Chest and abdomen pain. left lateral rib pain, thoracic pain COMPARISON: Abdomen Pelvis W Contrast dated 03/01/2024; Chest Single View dated 12/02/2021 TECHNIQUE: A limited noncontrast study was performed. All CT scans are performed using dose optimization technique as appropriate and may include automated exposure control or mA/KV adjustment according to patient size. FINDINGS: The lungs are clear.No pleural or pericardial effusion.No intrathoracic adenopathy. The liver, spleen, pancreas, adrenal glands and kidneys are within normal limits. No bowel obstruction, free air, free fluid or abscess. Normal appendix. No pathologic lymphadenopath y in the abdomen or pelvis. Mild anterior wedging of the T5 vertebral body is noted, age indeterminate. Elsewhere, no evidence of fracture. IMPRESSION: Mild anterior wedge fracture of the T5 vertebral body anteriorly is noted without canal compromise.This is of indeterminate age. Elsewhere, no acute process demonstrated.
[2024-07-10] MEDS ORDERED: ACETAMINOPHEN 325 MG TABLET ONE (16:42)
[2024-07-10] MEDS ORDERED: HYDROCODONE/APAP 7.5/325 MG TAB ONE (16:43)
[2024-07-10 18:21] LABS: SARS-CoV-2 Antigen CONTROL BLUE LINE VIS/BG OK; SARS-CoV-2 Antigen Rapid Res Negative (Negative)
[2024-07-10 18:26] LABS: Specific Gravity 1.021 (1.005-1.030)
[2024-07-10 18:29] LABS: Calcium Oxalate Crystals- Ur Moderate /HPF (None Seen); Specific Gravity 1.021 (1.005-1.030); Sqamous Epithelial <5 /HPF (None Seen); Urine Bacteria <20 /HPF (<20); Urine Bilirubin NEGATIVE (Negative); Urine Blood 1+ (Negative); Urine Clarity Turbid (Clear); Urine Color Light-Yellow (Yellow); Urine Culture Reflex Order NOT NEEDED; Urine Glucose NEGATIVE (Negative); Urine Ketones NEGATIVE (Negative); Urine Microscopic Reflex YN ORDER UMIC; Urine Mucus 4+ /HPF (None Seen); Urine Nitrite NEGATIVE (Negative); Urine Protein NEGATIVE (Negative); Urine Urobilinogen Normal (Normal); Urine WBC <5 /HPF (<5)
--- NOTE | 2024-07-10 18:40 | ER ---
Nurse's Notes [facility] Name: Jennifer Salazar Age: 49 yrs Sex: Female : 1975 Arrival Date: 07/10/2024 Time: 14:58 Bed 10 Private MD: Diagnosis: Wedge compression fracture of unspecified thoracic vertebra;Streptococcal pharyngitis Presentation: 07/10 15:29 Chief complaint: Patient states: STATES FELL THROUGH BED LAST NIGHT. HURT BACK AND HIT db HEAD. HEAD FEELS HOT LIKE HAS FEVER. ALSO WANTS TO GET CHECKED FOR FLU AND COVID. Coronavirus screen: Client denies travel out of the [place] in the last 14 days. At this time, the client does not indicate any symptoms associated with coronavirus-19. Ebola Screen: Patient negative for fever greater than or equal to 101.5 degrees Fahrenheit, and additional compatible Ebola Virus Disease symptoms Patient denies exposure to infectious person. Patient denies travel to an Ebola-affected area in the 21 days before illness onset. No symptoms or risks identified at this time. Initial Sepsis Screen: Does the patient meet any 2 criteria? No. Patient's initial sepsis screen is negative. Does the patient have a suspected source of infection? No. Patient's initial sepsis screen is negative. Risk Assessment: Do you want to hurt yourself or someone else? Patient reports no desire to harm self or others. Onset of symptoms was July 09, 2024. 15:29 Method Of Arrival: Ambulatory db 15:29 Acuity: BECKY 4 db Triage Assessment: 15:32 General: Appears in no apparent distress. uncomfortable, Behavior is calm, cooperative. db Pain: Complains of pain in back. Neuro: Level of Consciousness is awake, alert, obeys commands, Oriented to person, place, time, situation. Musculoskeletal: Circulation, motion, and sensation intact. Historical: - Allergies: 15:32 Naproxen; db - PMHx: 15:32 Anxiety; Bipolar disorder; Depression; Schizophrenia; db - PSHx: 15:32 Appendectomy; Cholecystectomy; tubal ligation; db - Immunization history:: Adult Immunizations unknown. - Infectious Disease History:: Denies. - Social history:: Smoking status: Patient reports the use of cigarette tobacco products, smokes one-half pack cigarettes per day. Screenin:45 [facility] ED Fall Risk Assessment (Adult) History of falling in the last 3 months, ar6 including since admission No falls in past 3 months (0 pts) Confusion or Disorientation No (0 pts) Intoxicated or Sedated No (0 pts) Impaired Gait No (0 pts) Mobility Assist Device Used No (0 pt) Altered Elimination No (0 pt) Score/Fall Risk Level 0 - 2 = Low Risk. [facility] ED Fall Risk Assessment (Adult) Altered Elimination Score/Fall Risk Level 0 - 2 = Low Risk Oriented to surroundings, Maintained a safe environment, Hourly rounding (assess needs \T\ fall precautionary measures) done. Abuse screen: Denies threats or abuse. Denies injuries from another. Nutritional screening: No deficits noted. Tuberculosis screening: No symptoms or risk factors identified. Assessment: 17:45 General: Appears in no apparent distress. uncomfortable, Behavior is calm, cooperative, ar6 appropriate for age. Pain: Complains of pain in posterior chest and back. Neuro: Level of Consciousness is awake, alert, obeys commands, Oriented to person, place, time, situation. Cardiovascular: Capillary refill < 3 seconds. Respiratory: Airway is patent. GI: Abdomen is round non-distended, Reports nausea, vomiting. : No signs and/or symptoms were reported regarding the genitourinary system. EENT: Oral mucosa is moist. Derm: Skin is intact, is healthy with good turgor, Skin is dry, Skin is pink, warm \T\ dry. Musculoskeletal: Reports pain in back. 18:47 Reassessment: pending d/c for medication administration. ar6 Vital Signs: 15:29 BP 128 / 100; Pulse 69; Resp 18; Temp 98.2; Pulse Ox 99% ; Weight 74.84 kg; Height 5 db ft. 5 in. ; Pain 8/10; 17:45 BP 135 / 92; Pulse 68; Resp 18; Pulse Ox 98% on R/A; Weight 74.84 kg; Height 5 ft. 5 ar6 in. ; Pain 10/10; 17:45 BP 132 / 86; Pulse 72; Resp 18; Pulse Ox 99% on R/A; ar6 17:45 Body Mass Index 27.46 (74.84 kg, 165.1 cm) ar6 15:29 Pain Scale: Adult db 17:45 Pain Scale: Adult ar6 ED Course: 15:02 Patient arrived in ED. mg5 15:09 Bruce Wright PA is PHCP. cp 15:09 Nicholas Vargas DO is Attending Physician. cp 15:32 Triage completed. db 15:33 Arm band placed on left wrist. db 16:03 CT Head C Spine In Process Unspecified. EDMS 16:04 CT Chest Abdomen Pelvis W/O Contrast In Process Unspecified. EDMS 16:39 Elaine Flood, RN is Primary Nurse. ar6 17:45 No apparent distress. Awaiting lab results, Awaiting radiology results. ar6 17:45 Patient has correct armband on for positive identification. Placed in gown. Bed in low ar6 position. Call light in reach. Side rails up X2. Provided Education on: medication. Client placed on continuous cardiac and pulse oximetry monitoring. NIBP monitoring applied. Door closed. Warm blanket given. Elevated. 17:45 Influenza Screen (a \T\ B) Sent. ar6 17:45 Test, Urine Sent. ar6 17:45 Urinalysis w/ reflexes Sent. ar6 17:45 Strep Sent. ar6 17:45 SARS RAPID Sent. ar6 17:45 No provider procedures requiring assistance completed. ar6 18:40 Daniel Larry MD is Referral Physician. cp 19:04 Patient did not have IV access during this emergency room visit. ar6 Administered Medications: 17:00 Drug: Acetaminophen PO 650 mg PO once Route: PO; ar6 18:48 Follow up: Response: No adverse reaction ar6 17:00 Drug: Hydrocodone-Acetaminophen PO (7.5 mg-325 mg) 1 tabs PO once; RASS on ADMIN: ar6 Combtv4, Very Agttd3, Agttd2, Rstlss1, AlertClm0, Drwsy-1, Lt Sdtn-2, Mod Sdtn-3, Dp Sdtn-4, UnArsble-5 Route: PO; 18:48 Follow up: Response: No adverse reaction ar6 18:50 Drug: fentaNYL (PF) IM 25 mcg IM once Route: IM; Site: left deltoid; ar6 19:06 Follow up: Response: No adverse reaction; Pain is decreased ar6 Medication: 18:33 VIS not applicable for this client. ar6 Outcome: 18:40 Discharge ordered by . cp 19:03 Discharged to home ambulatory, ar6 19:03 Condition: good 19:03 Condition: good 19:03 Discharge instructions given to patient, family, Instructed on 19:03 Demonstrated understanding of instructions, follow-up care, medications, Prescriptions given X 2, 19:05 Patient left the ED. ar6 Signatures: Dispatcher [employer] EDMS Bruce Wright PA PA cp Benton, Danielle, RN RN Keshia Escobedo 5 Elaine Flood RN RN ar6
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
[2024-07-10] MEDS ORDERED: FENTANYL CITR 100 MCG/2 ML ONE (18:50)
[2024-07-10 19:11] VITALS: TEMP 98.2; O2SAT 99
[2024-07-10 19:13] VITALS: BP 132/86
== END 2024-07-10 19:05 | disposition home or self-care (01) ==
LOC: ER 14:58
DX: S22.000A Wedge compression fracture of unspecified thoracic vertebra, initial encounter for closed fracture (principal); J02.0 Streptococcal pharyngitis; Z11.52 Encounter for screening for COVID-19
CPT/HCPCS: 81001; 36415; 81025; 87081; 87804 ×2; 70450; 71250; 72125; 74176; 96372; 99284; 87811; J3010

== ENCOUNTER 2024-07-12 19:19 | Emergency (ER) | payer OTHER ==
--- OUTSIDE RECORDS SUMMARY | 2024-07-12 19:23 | XMS REPORT | Continuity of Care Document ---
Author Name Unknown Address [address] [facility] [address] [place] [address] [facility] [address] [facility] 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 Name Role Phone BARBER ARAIZA Primary Care Physician Unavailab SETH Parsons Attending Clinician UnavailUTE Chatman Attending Clinician Unavailable Ute Swan DO Attending Clinician [phone] Doctor Unassigned, [place] Attending Clinician U Anali Harris Attending Clinician [phone] ANALI BOYKIN Attending Clinician Unavailable Monie Saleem RN Attending Clinician Unavailtamiko guerrero Pob, Adc Lab Main Attending Clinician UnavailSeth Herr MD Attending Clinician [phone] Carmen, Adc Test Attending Clinician Unavailable Venkat Stark MD Attending Clinician [phone] Jaret Webb MD Attending Clinician [phone] JARET WEBB Attending Clinician Unavailable Sun Hamilton Attending Clinician [phone] Jimbo Sommers MD Attending Clinician [phone] DR GILMA FONTANEZ Attending Clinician Unava ilable SETH ROCA Admitting Clinician UnavailUTE Chatman Admitting Clinician Unavailable Seth Roca MD Admitting Clinician [phone] DR GILMA FONTANEZ Admitting Clinician Unava ilable Payers Payer Name Policy Type Policy Number Effective Date Expirati on Date Source [facility] [id number] 2018 00:00:00 Problems Condition Name Condition Details [...] Added automatic ally from request for surgery [id number] [facility] No known active problems No known active problems Disease [facility] Severe anxiety Severe anxiety Problem Active [facility] Current moderate episode of major depressive disorder without prior episode Current moderate episode of major depressive disorder without prior episode Problem Active [facility] Bipolar affective disorder, current episode mixed, current episode severity unspecifie d Bipolar affective disorder, current episode mixed, current episode severity unspecifie d Problem Active [facility] Pain of joint of left ankle and foot Pain of joint of left ankle and foot Problem Active [facility] Closed nondisplac ed fracture of lateral malleolus of left fibula, initial encounter Closed nondisplac ed fracture of lateral malleolus of left fibula, initial encounter Problem Active [facility] Closed nondisplac ed fracture of lateral malleolus of left fibula with routine healing Closed nondisplac ed fracture of lateral malleolus of left fibula with routine healing Problem Active [facility] Left sciatic nerve pain Left sciatic nerve pain Problem Active [facility] Allergies, Adverse Reactions, Alerts Allergy Name Allergy Type Status Severity Reaction(s) Onset Date Inactive Date Treating Clinician Comments Source Tramadol Propensi ty to adverse reaction s Active Nausea and/or Vomiting 2017-11 00:00: 00 [facility] TRAMADOL DRUG INGREDI Active ITCHING 2017-11 00:00: 00 [facility] Toradol DA Active Unknown 11-28 00:00: 00 [facility] Neuronti n DA Active Unknown 11-28 00:00: 00 [facility] Naproxen DA Active Unknown 11-28 00:00: 00 [facility] Social History Social Habit Start Date Stop Date Quantity Comments Source History of tobacco use Cigarette Smoker [facility] Exposure to SARS-CoV-2 (event) 2022-12-09 00:00:00 2022-12-19 16:05:00 Not sure [facility] Alcohol intake 2020-09-29 00:00:00 2020-09-29 00:00:00 [facility] Cigarettes smoked current (pack per day) - Reported 2020-09-09 00:00:00 2020-09-09 00:00:00 [facility] Tobacco use and exposure 2020-09-09 00:00:00 2020-09-09 00:00:00 Smokeless tobacco non-user [facility] Tobacco Comment 2020-09-09 00:00:00 2020-09-09 00:00:00 1 pack/3 days [facility] History SDOH Alcohol Frequency 2020-09-06 00:00:00 2020-09-06 00:00:00 1 [facility] History SDOH Alcohol Std Drinks 2020-09-06 00:00:00 2020-09-06 00:00:00 99 [facility] History SDOH Alcohol Binge 2020-09-06 00:00:00 2020-09-06 00:00:00 1 [facility] Sex Assigned At 1975 00:00:00 1975 00:00:00 [facility] Smoking Status Start Date Stop Date Source Smokes tobacco daily 2020-09-09 00:00:00 [facility] Unknown if ever smoked [facility] Medications Ordered Medication Name Filled Medication Name Start Date Stop Date Current Medication? Ordering Clinician Indication Dosage Frequency Signature (SIG) Comments Components Source hydrOXYzine (ATARAX) tablet 25 mg 12-19 22:00: 00 12-19 21:57 :00 No 25mg 25 mg, Oral, ONCE, 1 dose, On Sat12/19/22 at 1600, [facility] naproxen sodium 550 mg tablet 12-19 00:00: 00 Yes [id number] 550mg Take 1 tablet by mouth in the morning and 1 tablet in the evening. Take with meals. [facility] methylPREDN ISolone 4 mg tablets 12-19 00:00: 00 Yes [id number] Take by mouth SEE-INSTRU CTIONS. follow package directions [facility] hydrOXYzine 50 mg capsule 12-19 00:00: 00 01-19 05:59 :00 No [id number] 50mg Take 1 capsule by mouth 4 (four) times daily as needed for Anxiety for up to 30 days. [facility] methocarbam oL 500 mg tablet 12-19 00:00: 00 12-25 05:59 :00 No [id number] 500mg Take 1 tablet by mouth in the morning and 1 tablet at noon and 1 tablet in the evening. Do all this for 5 days. [facility] acetaminoph en-codeine (TYLENOL-CO DEINE #3) 300-30 mg tablet 2019-11 00:00: 00 Yes [id number] 1{tbl} Take 1 tablet by mouth every 4 (four) hours as needed for Pain (scale 4-6) or Pain (scale 7-10). Indication s: chronic pain [facility] clindamycin 150 mg capsule 2019-11 00:00: 00 Yes TAKE 2 CAPSULES BY MOUTH 4 TIMES DAILY FOR 10 DAYS [facility] lactated ringers IV infusion 1,000 mL 2019-11 19:45: 00 Yes 1000mL at 75 mL/hr, 1,000 mL, IV Infusion, CONTINUOUS , Starting Sat09/12/20 at 1345, Until Discontinu ed, Routine, PACU [facility] HYDROmorpho ne (DILAUDID) injection 0.2 mg 2019-11 19:35: 58 Yes .2mg 0.2 mg, Slow IV Push, Q5MIN PRN, 10 doses, Starting 09/12/20 at 1335, Until Discontinu ed, Routine, Pain (scale 7-10), PACU
Us e approved by (Faculty): PACU USE -ANESTHESI A SERVICE-HY DROMORPHON E INJECTIONS [facility] FENTanyl PF (SUBLIMAZE (PF)) injection 25 mcg 2019-11 19:35: 58 Yes 25ug 25 mcg, Slow IV Push, Q5MIN PRN, 4 doses, Starting Sat09/12/20 at 1335, Until Discontinu ed, Routine, Pain (scale 4-6), PACU [facility] ondansetron (ZOFRAN (PF)) injection 4 mg 2019-11 19:35: 58 Yes 4mg 4 mg, Slow IV Push, PRN, 1 dose, Starting Sat09/12/20 at 1335, Until Discontinu ed, Routine, Nausea and Vomiting (N/V), PACU [facility] lactated ringers IV infusion 1,000 mL 2019-11 14:30: 00 09-12 14:30 :00 No 1000mL at 42 mL/hr, 1,000 mL, IV Infusion, ONCE, 1 dose, Sat09/12/20 at 0830, Routine, DSU Pre-op [facility] acetaminoph en-codeine 300-60 mg tablet 2019-11 00:00: 00 09-20 05:59 :00 No [id number] 1{tbl} Take 1 tablet by mouth every 6 (six) hours as needed for Pain (pain score 4-10) for up to 7 days. Indication s: acute pain [facility] clindamycin 150 mg capsule 2019-11 0- 00:00: 00 09-17 05:59 :00 No [id number] 300mg Take 2 capsules by mouth 4 (four) times daily for 10 days. [facility] divalproex 500 mg EC tablet 2019-11 00:00: 00 Yes 500mg Take 500 mg by mouth 2 (two) times daily. [facility] traZODone 100 mg tablet 2019-11 00:00: 00 Yes TAKE 1 TO 2 TABLETS BY MOUTH EVERY DAY AT BEDTIME DIRECTED NEEDED FOR INSOMNIA [facility] hydrOXYzine 50 mg capsule 2019-11 00:00: 00 12-19 00:00 :00 No TAKE 1 CAPSULE BY MOUTH THREE TIMES DAILY NEEDED FOR ACUTE ANXIETY [facility] ondansetron (ZOFRAN (PF)) injection 4 mg 06-08 14:15: 00 06-08 13:25 :00 No 4mg 4 mg, Slow IV Push, ONCE, 1 dose, Sat06/08/20 at 0915, [facility] morpHINE injection 4 mg 06-08 14:15: 00 06-08 13:25 :00 No 4mg 4 mg, Slow IV Push, ONCE, 1 dose, Sat06/08/20 at 0915, [facility] LORazepam (ATIVAN) tablet 2 mg 07-17 00:34: 00 07-17 00:37 :00 No 2mg 2 mg, Oral, ONCE, 1 dose, [facility] 07/16/19 at 1945, [facility] LORazepam (ATIVAN) tablet 2 mg 07-16 20:56: 00 07-16 21:02 :00 No 2mg 2 mg, Oral, ONCE, 1 dose, [facility] 07/16/19 at 1600, [facility] Tylenol # 3 Tylenol # 3 04-02 00:00: 00 06-06 00:00 :00 No Mac Osorio one tab [facility] No known medications No Un tin [facility] No known medications No Un tin [facility] No known medications No Un tin [facility] Acetaminoph en-Codeine #3 Acetaminoph en-Codeine #3 Yes Mac Osorio not defined [facility] Lorazepam Lorazepam Yes Mac Osorio 1 tablet at bedtime as needed [facility] Effexor Effexor Yes Mac Osorio 1 tablet with food [facility] Klonopin Klonopin Yes Mac Osorio 1 tablet at bedtime [facility] Zoloft Zoloft Yes Mac Osorio 2 tab [facility] Depakote Depakote Yes Mac Osorio not defined [facility] Vital Signs Vital Name Observation Time Observation Value Comments Edward dubois Body temperature 2022-12-19 21:47:00 36.33 Sharona [facility] Systolic blood pressure 2022-12-19 21:43:00 105 mm[Hg] [facility] Diastolic blood pressure 2022-12-19 21:43:00 71 mm[Hg] [facility] Heart rate 2022-12-19 21:43:00 99 /min [facility] Respiratory rate 2022-12-19 21:43:00 22 /min [facility] Body weight 2022-12-19 21:43:00 61.236 kg [facility] BMI 2022-12-19 21:43:00 22.12 kg/m2 [facility] Oxygen saturation in Arterial blood by Pulse oximetry 2022-12-19 21:43:00 97 /min [facility] Systolic blood pressure 2020-09-29 19:53:00 118 mm[Hg] [facility] Diastolic blood pressure 2020-09-29 19:53:00 77 mm[Hg] [facility] Heart rate 2020-09-29 19:53:00 79 /min [facility] Body height 2020-09-29 19:53:00 166.4 cm [facility] Systolic blood pressure 2020-09-12 20:05:00 136 mm[Hg] [facility] Diastolic blood pressure 2020-09-12 20:05:00 85 mm[Hg] [facility] Heart rate 2020-09-12 20:05:00 51 /min [facility] Body temperature 2020-09-12 20:05:00 36.67 Sharona [facility] Respiratory rate 2020-09-12 20:05:00 19 /min [facility] Oxygen saturation in Arterial blood by Pulse oximetry 2020-09-12 20:05:00 100 /min [facility] Body height 2020-09-08 15:11:00 165.1 cm [facility] Body weight 2020-09-08 15:11:00 61.2 kg [facility] BMI 2020-09-08 15:11:00 22.45 kg/m2 [facility] Systolic blood pressure 2020-09-06 16:15:00 115 mm[Hg] [facility] Diastolic blood pressure 2020-09-06 16:15:00 80 mm[Hg] [facility] Heart rate 2020-09-06 16:15:00 69 /min [facility] 2020-09-06 16:15:00 165.1 cm [facility] weight 2020-09-06 16:15:00 61.236 kg [facility] BMI 2020-09-06 16:15:00 22.47 kg/m2 [facility] Systolic blood pressure 2020-06-08 12:56:00 120 mm[Hg] [facility] Diastolic blood pressure 2020-06-08 12:56:00 79 mm[Hg] [facility] Heart rate 2020-06-08 12:56:00 76 /min [facility] Body temperature 2020-06-08 12:56:00 36.67 Sharona [facility] Respiratory rate 2020-06-08 12:56:00 16 /min [facility] Body weight 2020-06-08 12:56:00 68.04 kg [facility] BMI 2020-06-08 12:56:00 24.96 kg/m2 [facility] Oxygen saturation in Arterial blood by Pulse oximetry 2020-06-08 12:56:00 98 /min [facility] Systolic blood pressure 2020-04-06 16:00:00 126 mm[Hg] [facility] Diastolic blood pressure 2020-04-06 16:00:00 71 mm[Hg] [facility] Heart rate 2020-04-06 16:00:00 74 /min [facility] Body temperature 2020-04-06 16:00:00 37.22 Sharona [facility] Respiratory rate 2020-04-06 16:00:00 20 /min [facility] Body height 2020-04-06 16:00:00 165.1 cm [facility] Body weight 2020-04-06 16:00:00 68.04 kg [facility] BMI 2020-04-06 16:00:00 24.96 kg/m2 [facility] Oxygen saturation in Arterial blood by Pulse oximetry 2020-04-06 16:00:00 100 /min [facility] Systolic blood pressure 2019-07-17 00:00:00 132 mm[Hg] [facility] Diastolic blood pressure 2019-07-17 00:00:00 76 mm[Hg] [facility] Heart rate 2019-07-17 00:00:00 66 /min [facility] Respiratory rate 2019-07-17 00:00:00 18 /min [facility] Oxygen saturation in Arterial blood by Pulse oximetry 2019-07-17 00:00:00 98 /min [facility] Body temperature 2019-07-16 20:03:00 36.78 Sharona [facility] Body weight 2019-07-16 20:02:00 79.379 kg [facility] Weight 2013-04-14 00:39:00 752.96 KG Height 2013-04-14 00:39:00 165.1 CM Procedures Procedure Date / Time Performed Performing Clinician Source NOTICE OF PRIVACY PRACTICES 2021-07-02 19:00:14 Doctor Unassigned, Blandon [facility] CONSENT/REFUSAL FOR DIAGNOSIS AND TREATMENT 2021-07-02 18:59:56 Doctor Unassigned, Blandon [facility] XR FINGERS 2 VW RIGHT 2020-09-29 18:46:22 Carlos Eduardo Roca [facility] FL TIME OR (NON-REPORTABLE) 2020-09-12 19:39:39 Seth Roca [facility] FL TIME OR (NON-REPORTABLE) 2020-09-12 19:20:07 Seth Roca [facility] DAY SURGERY - ADC 2020-09-12 06:01:00 Doctor Ana ssigned, [place]landon [facility] XR CHEST 2 VW 2020-09-09 19:40:29 [facility]US[facility] FOR DIAGNOSIS AND TREATMENT 2020-09-09 19:21:16 Doctor Unassigned, [place]on [facility] ASSIGNMENT OF BENEFITS 2020-09-09 19:18:53 Docto r Unassigned, Blandon [facility] DSU PRE-OP 2020-09-08 05:01:00 Doctor Unass igned, [place]on [facility] ASSIGNMENT OF BENEFITS 2020-09-06 16:09:16 Docto r Unassigned, [place]on [facility] POCT TEST 2020-06-08 13:22:00 [facility] 2020-06-08 13:22:[address] [facility] HEPATIC FUNCTION PANEL ([id number]) (ALB,T.PRO,BILI T,BU/BC,ALT,AST,ALK PHOS) 2020-06-08 [facility] (NA, K, CL, CO2, GLUCOSE, BUN, CREATININE, CA) 2020-06-08 13:22:00 [facility] CBC WITH DIFF 2020-06-08 13:22:00 Jaret Webb [facility] URINALYSIS 2020-06-08 13:22:[address] [facility] RAPID STREP SCREEN FOR GROUP A 2020-04-06 16:23:00 Sun Castro [facility] NOTICE OF PRIVACY PRACTICES 2020-04-06 15:48:09 Doctor Unassigned, [place]on [facility] CONSENT/REFUSAL FOR DIAGNOSIS AND TREATMENT 2020-04-06 15:47:58 Doctor Unassigned, [place]on [facility] FREE T4 2019-07-16 20:51:00 [facility] THYROID STIMULATING HORMONE 2019-07-16 20:51:00 Jimbo Sommers [facility] HEPATIC FUNCTION PANEL ([id number]) (ALB,T.PRO,BILI T,BU/BC,ALT,AST,ALK PHOS) 2019-07-16 20:51:00 Jimbo Sommers [facility] BASIC METABOLIC PANEL (NA, K, CL, CO2, GLUCOSE, BUN, CREATININE, CA) 2019-07-16 20:51:00 Jimbo Sommers [facility] SALICYLATE 2019-07-16 20:51:00 Jimbo Sommers [facility] ETHANOL 2019-07-16 20:51:00 Jimbo Sommers [facility] CBC WITH DIFFERENTIAL 2019-07-16 20:51:00 Last Sommers [facility] URINALYSIS 2019-07-16 20:51:00 Jimbo Sommers [facility] ADC / L[facility] - DRUG SCREEN TRIAGE 2019-07-16 20:51:00 Jimbo Sommers [facility] POCT TEST 2019-07-16 20:37:00 Quintin Sommers [facility] EKG-12 LEAD 2019-07-16 20:28:43 [facility]mers [facility] NOTICE OF PRIVACY PRACTICES 2019-07-16 19:39:12 Doctor Unassigned, [place]on [facility] CONSENT/REFUSAL FOR DIAGNOSIS AND TREATMENT 2019-07-16 19:38:59 Doctor Unassigned, [place]on [facility] SKIN CLOSURE NEC 2013-04-14 00:00:00 [facility] Encounters Start Date/Time End Date/Time Encounter Type Admission Type Attending Clinicians Care Facility Care Department Encounter ID Source 2021-09-11 17:13:34 Emergency [facility] [id number] [facility] 2021-09-09 01:42:20 Outpatient SETH MCCANN [facility] PADMINI [id number] [facility] 2022-12-19 15:47:00 2022-12-19 18:02:00 Emergency X UTE SWAN [facility] ERT [id number] [facility] 2022-12-19 15:47:00 2022-12-19 18:02:00 Emergency Ute Swan [facility] [id number] 350.1.13.10 4.2.7.2.686 [id number] [facility] 2021-07-02 14:21:00 2021-07-02 15:17:[address] [facility] [id number] 350.1.13.10 4.2.7.2.686 [id number] [facility] 2021-07-02 00:00:00 2021-07-02 00:00:00 Orders Only Doctor Unassigned, [place]on [facility] [id number] 350.1.13.10 4.2.7.2.686 [id number] [facility] 2021-07-02 00:00:00 2021-07-02 00:00:00 Orders Only Doctor Unassigned, [place]on [facility] [id number] 350.1.13.10 4.2.7.2.686 [id number] 2020-10-25 00:00:00 2020-10-25 00:00:00 Telephone Lucretia [facility] rocco [place] [id number] 350.1.13.10 4.2.7.2.686 [id number] [facility] 2020-10-25 00:00:00 2020-10-25 00:00:00 Telephone [facility] [id number] 350.1.13.10 4.2.7.2.686 [id number] 2020-10-17 14:00:00 2020-10-17 14:00:00 Outpatient R LUCRETIA [facility] [id number] [facility] 2020-10-14 00:00:00 2020-10-14 00:00:00 Telephone Lucretia [facility] [id number] 350.1.13.10 4.2.7.2.686 [id number] [facility] 2020-10-14 00:00:00 2020-10-14 00:00:00 Nurse Triage Monie Saleem [facility] 1.2.840.114 350.1.13.10 4.2.7.2.686 [id number] [facility] 2020-10-14 00:00:00 2020-10-14 00:00:00 Telephone Lucretia [facility] [id number] 350.1.13.10 4.2.7.2.686 [id number] 2020-10-14 00:00:00 2020-10-14 00:00:00 Nurse Triage Monie Saleem [facility] 1.840.114 350.1.13.10 4.2.7.2.686 [id number] 2020-10-13 10:30:00 2020-10-13 10:30:00 Outpatient Anuj BOYKIN [facility] [id number] [facility] 2020-10-04 00:00:00 2020-10-04 00:00:00 Clinic Assessment Lucretia [facility] [id number] 350.1.13.10 4.2.7.2.686 [id number] [facility] 2020-10-04 00:00:00 2020-10-04 00:00:00 Clinic Assessment [facility]cretia [facility] 1.20.114 350.1.13.10 4.2.7.2.686 [id number] 2020-10-03 14:00:00 2020-10-03 14:00:00 Outpatient Anuj LUCRETIA [facility] [id number] [facility] 2020-09-30 08:00:00 2020-09-30 08:00:00 Outpatient Anuj LUCRETIA [facility] [id number] [facility] 2020-09-30 07:42:57 2020-09-30 07:57:57 Knife Cutter Visit Pob, Adc Lab Main Seth Roca [facility] 1.20.114 350.1.13.10 4.2.7.2.686 [id number] [facility] 2020-09-30 00:00:00 2020-09-30 00:00:00 Telephone Boykin, [facility] rocco [place] 1.2.840.114 350.1.13.10 4.2.7.2.686 [id number] [facility] 2020-09-30 00:00:00 2020-09-30 00:00:00 Telephone Anali Boykin [facility] rocco [place] 1.2.840.114 350.1.13.10 4.2.7.2.686 [id number] 2020-09-29 12:28:56 2020-09-29 23:59:[address] En[address] Seth Roca [facility] 1.2.840.114 350.1.13.10 4.2.7.2.686 [id number] [facility] 2020-09-29 13:51:51 2020-09-29 15:05:33 Office Visit Anali Boykin [facility] rocco [place] 1.2.840.114 350.1.13.10 4.2.7.2.686 [id number] [facility] 2020-09-29 13:45:00 2020-09-29 13:45:00 Outpatient R ANALI BOYKIN [facility] [id number] [facility] 2020-09-29 00:00:00 2020-09-29 00:00:00 Telephone Anali Boykin [facility] rocco [place] 1.2.840.114 350.1.13.10 4.2.7.2.686 [id number] [facility] 2020-09-28 00:00:00 2020-09-28 00:00:00 Telephone Seth Roca [facility] Special[facility] rocco [place] 1.2.840.114 350.1.13.10 4.2.7.2.686 [id number] [facility] 2020-09-28 00:00:00 2020-09-28 00:00:00 Telephone Seth Roca [facility] rocco [place] 1.2840.114 350.1.13.10 4.2.7.2.686 [id number] [facility] 2020-09-27 00:00:00 2020-09-27 00:00:00 Telephone Anali Boykin [facility] rocco [place] 1.2840.114 350.1.13.10 4.2.7.2.686 [id number] [facility] 2020-09-26 16:00:00 2020-09-26 16:00:00 Outpatient R LUCRETIA [facility] [id number] [facility] 2020-09-26 00:00:00 2020-09-26 00:00:00 Telephone Lucretia [facility] rocco [place] 1.2840.114 350.1.13.10 4.2.7.2.686 [id number] [facility] 2020-09-23 10:15:00 2020-09-23 10:15:00 Outpatient R SETH ROCA [facility] [id number] [facility] 2020-09-19 00:00:00 2020-09-19 00:00:00 Telephone RocaSeth Shun [facility] Special rocco [place] 1.20.114 350.1.13.10 4.2.7.2.686 [id number] [facility] 2020-09-12 08:14:00 2020-09-12 14:20:00 Hospital Encounter Seth Roca [facility] [place] 1.2840.114 350.1.13.10 4.2.7.2.686 [id number] [facility] 2020-09-12 00:00:00 2020-09-12 00:00:00 Orders Only Doctor Unassigned, [place] [facility] 1.2840.114 350.1.13.10 4.2.7.2.686 [id number] [facility] 2020-09-09 14:17:36 2020-09-09 23:59:[address] En[address] Seth Roca [facility] 1.2.840.114 350.1.13.10 4.2.7.2.686 [id number] [facility] 2020-09-09 14:16:24 2020-09-09 14:31:24 Knife Cutter Visit Pob, Adc Lab Main Seth Roca [facility] 1.2840.114 350.1.13.10 4.2.7.2.686 [id number] [facility] 2020-09-09 14:15:01 2020-09-09 14:30:01 Laboratory Only Only, Adc Test Lincoln Venkat [facility] 1.2840.114 350.1.13.10 4.2.7.2.686 [id number] [facility] 2020-09-09 14:00:00 2020-09-09 14:00:00 Outpatient R SETH ROCA [facility] [id number] [facility] 2020-09-08 00:00:00 2020-09-08 00:00:00 Orders Only Doctor Unassigned, [place] [facility] 1.2840.114 350.1.13.10 4.2.7.2.686 [id number] [facility] 2020-09-07 00:00:00 2020-09-07 00:00:00 Prep For Surgery Seth Roca [facility] 1.2.840.114 350.1.13.10 4.2.7.2.686 [id number] [facility] 2020-09-06 11:10:09 2020-09-06 11:25:09 Office Visit [facility] 1.2.840.114 350.1.13.10 4.2.7.2.686 [id number] [facility] 2020-09-06 10:00:00 2020-09-06 10:00:00 Outpatient Anuj ANALI [facility] [id number] [facility] 2020-09-06 00:00:00 2020-09-06 00:00:00 Orders Only Doctor Unassigned, [place] [facility] 1.2840.114 350.1.13.10 4.2.7.2.686 [id number] [facility] 2020-06-08 07:57:26 2020-06-08 09:17:00 Emergency Tracey [facility] 1.20.114 350.1.13.10 4.2.7.2.686 [id number] [facility] 2020-06-08 07:57:26 2020-06-08 07:57:26 Emergency X JARET WEBB [facility] ERT [id number] [facility] 2020-04-06 11:02:11 2020-04-06 12:59:[address] [facility] 1.2.114 350.1.13.10 4.2.7.2.686 [id number] [facility] 2020-04-06 10:49:00 2020-04-06 10:49:00 Emergency X [facility] ERT [id number] [facility] 2020-04-06 00:00:00 2020-04-06 00:00:00 Orders Only Doctor Unassigned, [place] [facility] 1.20.114 350.1.13.10 4.2.7.2.686 [id number] [facility] 2019-07-16 15:08:41 2019-07-16 20:56:[address] [facility] 1.2840.114 350.1.13.10 4.2.7.2.686 [id number] [facility] 2019-05-20 16:15:00 2019-05-20 16:15:00 Outpatient [facility] [id number] [facility] 2019-05-07 15:30:00 2019-05-07 15:30:00 Outpatient [facility] [id number] [facility] 2019-05-07 14:28:00 2019-05-07 14:28:00 Outpatient [facility] [id number] [facility] 2019-05-06 11:28:00 2019-05-06 11:28:00 Outpatient [facility] [id number] [facility] 2019-05-05 14:00:00 2019-05-05 14:00:00 Outpatient [facility] [id number] [facility] 2019-04-28 09:30:00 2019-04-28 09:30:00 Outpatient [facility] [id number] [facility] 2019-04-24 10:53:00 2019-04-24 10:53:00 Outpatient [facility] [id number] [facility] 2019-04-24 10:06:00 2019-04-24 10:06:00 Outpatient [facility] [id number] [facility] 2019-01-12 10:00:00 2019-01-12 10:00:00 [facility] [place] [facility] Medicine [id number] [facility] 2013-04-14 00:19:00 2013-04-14 03:12:00 Emergency E GILMA FONTANEZ [facility] [id number] [facility] Results Test Description Test Time Test [...] of middle phalanx of the right middlefinger. [facility] [place] TIME OR (NON-REPORTABLE) 19:40:57 These images do not require a Radiology diagnostic report. [facility] [place] TIME OR (NON-REPORTABLE) 19:23:57 These images do not require a Radiology diagnostic report. [facility] XR CHEST 2 VW 19:56:49 No evidence [...] are seen.IMPRESSIONNo evidence of acute cardiopulmonary disease. [facility] (ALB, T.PRO, BILI T, BU/BC, ALT, AST, ALK PHOS)2020-06-08 13:47:00* Test Item Value Reference Range Interpretation Comme nts TOTAL BILI (test code = 0282275894) 0.3 mg/dL 0.1-1.1 BILI UNCON (test code = 6879074481) 0.5 mg/dL 0.1-1.1 BILI CONJ (test code = 4621735338) 0.0 mg/dL 0-0.3 T PROTEIN (test code = 6248443891) 7.1 g/dL 6.3-8.2 ALBUMIN (test code = 2297870416) 4.2 g/dL 3.5-5 ALK PHOS (test code = 9501511979) 53 U/L 34-122 ALTv (test code = 1742-6) 22 U/L 5-35 AST(SGOT) (test code = 1694430497) 32 U/L 13-40 Lab Interpretation (test cod e = 53101-6) Normal [facility] Hospital[facility] [id number] 13:47:00* Test Item Value Reference Range Interpretation Comme nts LIPASE (test code = 9110791181) 142 U/L 0-220 Lab Interpretation (test cod e = 29319-9) Normal [facility] Hospital[facility]inalysis2020-07-29 13:47:00* Test Item Value Reference Range Interpretation Comme nts APPEARANCE (test code = 7409645374) Clear Clear COLOR (test code = 0231470934) Straw Yellow A PH (test code = 0773776186) 4.8-8.0 SP GRAVITY (test code = 6479028639) 1.003-1.030 L GLU U QUAL (test code = 6806667963) Normal Normal BLOOD (test code = 8813058811) Negative Negative KETONES (test code = 3959238449) Negative Negative PROTEIN (test code = 2887-8) Negative Negative UROBILIN (test code = 9300235758) Normal Normal BILIRUBIN (test code = 9513316358) Negative Negative NITRITE (test code = 6568959865) Negative Negative LEUK MAYNOR (test code = 8642457913) Negative Negative RBC/HPF (test code = 9419792624) <1 See_Comment [Automated messa ge] The system which generated this result transmitted reference range: 0 - 3 HPF. The reference range was not used to interpret this result as normal/abnormal. WBC/HPF (test code = 3610897179) <1 See_Comment [Automated messa ge] The system which generated this result transmitted reference range: 0 - 5 HPF. The reference range was not used to interpret this result as normal/abnormal. BACTERIA (test code = 8332488510) Negative Negative SQ EPITH (test code = 6727130506) <1 See_Comment [Automated messa ge] The system which generated this result transmitted reference range: <=2 HPF. The reference range was not used to interpret this result as normal/abnormal. Lab Interpretation (test code = 62069-0) Abnormal [facility] with [id number] 13:37:00* Test Item Value Reference Range Interpretation [...] g/dL 31.6-35.1 L RDW-SD (test code = 76143-0) 42.9 fL 39-49.9 RDW-CV (test code = 788-0) 16.6 % 12-15.5 H PLT (test code = 777-3) See_Comment [Automated messa ge] The system which generated this result transmitted reference range: 166 - 358 10*3/?L. The reference range was not used to interpret this result as normal/abnormal. MPV (test code = 93610-3) 9.3 fL 9.5-12.9 L NRBC/100 WBC (test code = 8758158540) See_Comment [Automated [employer] ssage] The system which generated this result transmitted reference range: 0.0 - 10.0 /100 WBCs. The reference range was not used to interpret this result as normal/abnormal. NRBC x10^3 (test code = 9540807043) <0.01 See_Comment [Automated messa ge] The system which generated this result transmitted reference range: 10*3/?L. The reference range was not used to interpret this result as normal/abnormal. GRAN MAT (NEUT) % (test code = 770-8) 55.7 % IMM GRAN % (test code = 4727510923) 0.20 % LYMPH % (test code = 736-9) 30.8 % MONO % (test code = 5905-5) 10.2 % EOS % (test code = 713-8) 2.1 % BASO % (test code = 706-2) 1.0 % GRAN MAT x10^3(ANC) (test code = 8857603108) 3.40 10*3/uL 1.88-7.09 IMM GRAN x10^3 (test code = 4470115320) <0.03 0-0.06 LYMPH x10^3 (test code = 731-0) 1.88 10*3/uL 1.32-3.29 MONO x10^3 (test code = 742-7) 0.62 10*3/uL 0.33-0.92 EOS x10^3 (test code = 711-2) 0.13 10*3/uL 0.03-0.39 BASO x10^3 (test code = 704-7) 0.06 10*3/uL 0.01-0.07 Lab Interpretation (test code = 39519-2) Abnormal [facility] HospitalPO[facility] [id number] 13:22:00* Test Item Value Reference Range Interpretation Comme nts POCT PREG (test code = 1605) NEGATIVE On board controls acceptable with C Line (test code = 3574) PRESENT POCT PREG LOT # (test code = 3575) [id number] POCT PREG TEST DATE ( test code = 3576) 08/10/2021 Lab Interpretation (test cod e = 41550-9) Normal [facility] [id number] 16:56:00* Test Item Value Reference Range Interpretation Comme nts Streptococcus pyogenes (grou p A) antigen (test code = 65124-3) Negative Negative Lab Interpretation (test cod e = 39356-0) Normal [facility] Hospital[facility]inalysis2019-09-05 22:17:00* Test Item Value Reference Range Interpretation Comme nts APPEARANCE (test code = 6512313187) Clear Clear COLOR (test code = 1103405332) Yellow Yellow PH (test code = 6817704426) 4.8-8.0 SP GRAVITY (test code = 1401009663) 1.003-1.030 GLU U QUAL (test code = 1850044107) Negative Negative BLOOD (test code = 8052236424) Trace Negative A KETONES (test code = 5761274053) Trace Negative A PROTEIN (test code = 2887-8) Negative Negative UROBILIN (test code = 2692708399) 0.2 mg/dL See_Comment [Automated [employer] AGa ge] The system which generated this result transmitted reference range: 0-1.0 mg/dL. The reference range was not used to interpret this result as normal/abnormal. BILIRUBIN (test code = 5063781536) Small Negative A NITRITE (test code = 7259716944) Negative Negative LEUK MAYNOR (test code = 0491510443) Negative Negative RBC/HPF (test code = 0102397292) See_Comment [Automated [employer] AGa ge] The system which generated this result transmitted reference range: 0 - 3 HPF. The reference range was not used to interpret this result as normal/abnormal. WBC/HPF (test code = 6335045404) See_Comment [Automated [employer] AGa ge] The system which generated this result transmitted reference range: 0 - 5 HPF. The reference range was not used to interpret this result as normal/abnormal. BACTERIA (test code = 6347190880) Negative Negative AMORPHOUS (test code = 0101283577) Few HPF SQ EPITH (test code = 9689142694) HPF Ictotest (test code = 4505933566) Negative Lab Interpretation (test code = 54827-3) Abnormal [facility] HospitalTHYROID STIMULATING [id number] 22:15:00 * Test Item Value Reference Range Interpretation Comme nts TSH (test code = 6708538775) See_Comment [Automated [employer] AGa ge] The system which generated this result transmitted reference range: 0.45 - 4.70 mIU/L. The reference range was not used to interpret this result as normal/abnormal. Lab Interpretation (test code = 94111-9) Normal [facility] HospitalFREE [id number] 22:01:00* Test Item Value Reference Range Interpretation Comme nts FREE T4 (test code = 1241851795) 1.34 ng/dL 0.78-2.2 Lab Interpretation (test cod e = 89446-1) Normal [facility]AD [facility] [id number] 21:59:00* Test Item Value Reference Range Interpretation Comme nts BENZO U (test code = 9605772120) Presumptive Positive Negative A ILEANA U (test code = 2371420279) Negative Negative AMPHET (test code = 7523467938) Negative Negative THC (test code = 1160435017) Negative Negative METHADONE (test code = 4754733522) Negative Negative Meth U (test code = 1310304582) Negative Negative OPIATES (test code = 5685482854) Negative Negative Cocaine Metabolite (test code = 3761968477) Presumptive Positive Negative A PROPOXY (test code = 1053474100) Negative Negative Tric U (test code = 3927513515) Negative Negative PCP (test code = 0164645141) Negative Negative OXYCOD (test code = 2755347500) Negative Negative LUCY (test code = LUCY) [...] legal testing). Lab Interpretation (test code = 51996-9) Abnormal [facility] HospitalETHANOL2019-09-05 21:54:00* Test Item Value Reference Range Interpretation Comme nts ALCOHOL (test code = 5501795918) <10 mg/dL LUCY (test code = LUCY) <10 Jzavbyyb41-371 Toxic>100 Depression of EMERGENCY DEPARTMENT AIDE>400 Fatalities Reported [facility] HospitalSALICYLATE2019-09-05 21:54:00* Test Item Value Reference Range Interpretation Comme nts SALICYLATE (test code = 0572886090) <10 mg/L LUCY (test code = LUCY) Therapeutic Range: ? Analgesic and Antipyretic Use? 20-100 mg/L? Anti-Inflammatory Use? 100-250 mg/LToxic Range:? Greater than 300 mg/L [facility] HospitalACETAMINOPHEN2019-09-05 21:54:00* Test Item Value Reference Range Interpretation Comme nts ACETAMINOP (test code = 3179978250) <10.0 10-30 L LUCY (test code = LUCY) Toxic: Greater derek n 200 ug/mL @ 4 hour post ingestion or greater than 50 ug/mL @ 12 hour post ingestion Lab Interpretation (test code = 02023-9) Abnormal [facility] HospitalHep[facility] Function Panel (ALB, T.PRO, BILI T, BU/BC, ALT, AST, ALK PHOS)2019-07-16 21:43:00* Test Item Value Reference Range Interpretation Comme nts TOTAL BILI (test code = 7055049444) 0.2 mg/dL 0.1-1.1 BILI UNCON (test code = 8498127168) 0.2 mg/dL 0.1-1.1 BILI CONJ (test code = 1797575839) 0.0 mg/dL 0-0.3 T PROTEIN (test code = 6793239020) 7.2 g/dL 6.3-8.2 ALBUMIN (test code = 0135079868) 4.4 g/dL 3.5-5 ALK PHOS (test code = 7830348838) 54 U/L 34-122 ALT(SGPT) (test code = 2226100262) 26 U/L 9-51 AST(SGOT) (test code = 7814537908) 25 U/L 13-40 Lab Interpretation (test cod e = 56836-4) Normal [facility] Metabolic Panel (NA, K, CL, CO2, GLUCOSE, BUN, CREATININE, CA)2019-07-16 21:42:00* Test Item Value Reference Range Interpretation Comme nts NA (test code = 8388464023) 148 mmol/L 135-145 H K (test code = 7462272044) 3.4 mmol/L 3.5-5 L CL (test code = 4919052847) 113 mmol/L 98-108 H CO2 TOTAL (test code = 4392500901) 25 mmol/L 23-31 AGAP (test code = 8965201205) 2-16 BUN (test code = 6405068304) 11 mg/dL 7-23 GLUCOSE (test code = 0797132632) 98 mg/dL 70-110 CREATININE (test code = 3592170805) 0.78 mg/dL 0.5-1.04 CALCIUM (test code = 4048983787) 9.2 mg/dL 8.6-10.6 eGFR Calculation (Non-) (test code = 6270428790) mL/min/1.73m2 eGFR Calculation () (test code = 5142244500) mL/min/1.73m2 LUCY (test code = LUCY) Association [...] imaging tests). Lab Interpretation (test code = 23050-4) Abnormal [facility] WITH [id number] 21:24:00* Test Item Value Reference Range Interpretation Comme nts WBC (test code = 6690-2) See_Comment L [[employer]] The system which generated this result transmitted reference range: 4.30 - 11.10 10*3/?L. The reference range was not used to interpret this result as normal/abnormal. RBC (test code = 789-8) See_Comment [[employer]] The system which generated this result transmitted [...] g/dL 31.6-35.1 L RDW-SD (test code = 14126-8) 51.6 fL 39-49.9 H RDW-CV (test code = 788-0) 20.4 % 12-15.5 H PLT (test code = 777-3) See_Comment [Automated messa ge] The system which generated this result transmitted reference range: 166 - 358 10*3/?L. The reference range was not used to interpret this result as normal/abnormal. MPV (test code = 85168-7) 9.2 fL 9.5-12.9 L NRBC/100 WBC (test code = 0920123226) See_Comment [Automated me ssage] The system which generated this result transmitted reference range: 0.0 - 10.0 /100 WBCs. The reference range was not used to interpret this result as normal/abnormal. NRBC x10^3 (test code = 3557432183) <0.01 See_Comment [Automated messa ge] The system which generated this result transmitted reference range: 10*3/?L. The reference range was not used to interpret this result as normal/abnormal. GRAN MAT (NEUT) % (test code = 770-8) 58.7 % IMM GRAN % (test code = 9829899975) 0.30 % LYMPH % (test code = 736-9) 24.1 % MONO % (test code = 5905-5) 15.5 % EOS % (test code = 713-8) 0.8 % BASO % (test code = 706-2) 0.6 % GRAN MAT x10^3(ANC) (test code = 6725330274) 2.12 10*3/uL 1.88-7.09 IMM GRAN x10^3 (test code = 7611517052) <0.03 0-0.06 LYMPH x10^3 (test code = 731-0) 0.87 10*3/uL 1.32-3.29 L MONO x10^3 (test code = 742-7) 0.56 10*3/uL 0.33-0.92 EOS x10^3 (test code = 711-2) 0.03 10*3/uL 0.03-0.39 BASO x10^3 (test code = 704-7) <0.03 0.01-0.07 Lab Interpretation (test code = 12910-5) Abnormal [facility] HospitalPOWA Test, [id number] 20:37:00 * Test Item Value Reference Range Interpretation Comme nts POCT PREG (test code = 1605) negative On board controls acceptable with C Line (test code = 3574) present POCT PREG LOT # (test code = 3575) [id number] POCT PREG TEST DATE ( test code = 3576) 11/10/2020 Lab Interpretation (test cod e = 38867-5) [facility]"
[2024-07-12] MEDS ORDERED: HYDROCODONE/APAP 10/325 TAB ONE (20:12)
--- NOTE | 2024-07-12 20:19 | EDPHYS ---
Physician Documentation [facility] Name: Jennifer Salazar Age: 49 yrs Sex: Female : 1975 Arrival Date: 07/12/2024 Time: 19:19 Bed 7 Private MD: ED Physician Wayne Mazariegos HPI: 07/12 20:16 This 49 yrs old Female presents to ER via Ambulatory with complaints of Headache, Neck ec2 Pain, <24hrs Old, Back Pain. 20:16 Patient arrives today for evaluation of back pain. Patient was seen recently, external ec2 records indicate she had a CT scan of the head, C-spine, chest abdomen pelvis showed a thoracic compression fracture. Patient reports that she is taking methocarbamol with some alleviation in symptoms. No new complaints. Patient states that she has multiple other stressors are exacerbating her life at this time. . Historical: - Allergies: 19:54 Naproxen; ap3 - PMHx: 19:54 Anxiety; Bipolar disorder; Depression; Schizophrenia; ap3 - PSHx: 19:54 Appendectomy; Cholecystectomy; tubal ligation; ap3 - Infectious Disease History:: Denies. - Social history:: Smoking status: Patient reports the use of cigarette tobacco products, smokes one-half pack cigarettes per day. ROS: 20:16 Constitutional: as per hpi ec2 Exam: 20:16 Constitutional: GEN: NAD Head: atraumatic Eyes: EOMI Ears: External ears are ec2 normal. CV: regular rate LUNGS: no respiratory distress ABD: non-distended SKIN: no evidence of rashes MSK: No C/T/L spine deformities. Vital Signs: 19:51 BP 153 / 112; Pulse 88; Resp 19; Temp 97.6; Pulse Ox 99% on R/A; Height 5 ft. 5 in. ; ap3 Pain 10/10; 20:25 BP 172 / 81; Pulse 85; Resp 17; Temp 97.6; Pulse Ox 99% ; Pain 10/10; bm8 19:51 Pain Scale: Adult ap3 20:25 Pain Scale: Adult bm8 Gallito Coma Score: 19:55 Eye Response: spontaneous(4). Motor Response: obeys commands(6). Verbal Response: bm8 oriented(5). Total: 15. 20:25 Eye Response: spontaneous(4). Motor Response: obeys commands(6). Verbal Response: bm8 oriented(5). Total: 15. MDM: 19:43 Patient medically screened. cp 20:16 Data reviewed: vital signs. ED course: Patient arrives today for evaluation of back ec2 pain with recent imaging and external records review performed myself as above in HPI. Presentation consistent with patient's known thoracic fracture. Will give the patient dose of pain medication discharge home. Return precautions given.. Administered Medications: 20:21 Drug: Kerrick PO 10 mg-325 mg 1 tabs PO once Route: PO; bm8 20:25 Follow up: Response: No adverse reaction bm8 Disposition Summary: 07/12/24 20:18 Discharge Ordered Notes: Location: Home ec2 Condition: Stable ec2 Diagnosis - Back pain ec2 Followup: ec2 - With: Private Physician - When: - Reason: Recheck today's complaints Discharge Instructions: - Discharge Summary Sheet ec2 - Acute Back Pain, Adult ec2 Forms: - Medication Reconciliation Form ec2 - Antibiotic Education ec2 - Prescription Opioid Use ec2 - Patient Portal Instructions ec2 - Leadership Thank You Letter ec2 Prescriptions: - acetaminophen-codeine 300-30 mg Oral tablet - take 1 tablet ORAL route 2 times per day; 15 tablet; Refills: 0, Product ec2 Selection Permitted Signatures: Bruce Wright PA PA cp Prokisch, Amanda, RN RN ap3 Wayne Mazariegos MD MD ec2 Flip Wood RN RN bm8
--- NOTE | 2024-07-12 20:19 | ER ---
Nurse's Notes [facility] Name: Jennifer Salazar Age: 49 yrs Sex: Female : 1975 Arrival Date: 07/12/2024 Time: 19:19 Bed 7 Private MD: Diagnosis: Back pain Presentation: 07/12 19:51 Chief complaint: Patient states: she was laying in a bed, when her dog jumped in the ap3 bed and the bed collapsed. patient complains of back pain, fortune pain, and pain in the bottom of her feet. patient states her pain is currently a 10/10 on the pain scale. Coronavirus screen: At this time, the client does not indicate any symptoms associated with coronavirus-19. Ebola Screen: No symptoms or risks identified at this time. Initial Sepsis Screen: Does the patient meet any 2 criteria? No. Patient's initial sepsis screen is negative. Does the patient have a suspected source of infection? No. Patient's initial sepsis screen is negative. Risk Assessment: Do you want to hurt yourself or someone else? Patient reports no desire to harm self or others. Onset of symptoms is unknown. 19:51 Method Of Arrival: Ambulatory ap3 19:51 Acuity: BECKY 3 ap3 Triage Assessment: 19:54 General: Appears in no apparent distress. Behavior is calm, cooperative, appropriate ap3 for age. Pain: Complains of pain in back, right foot, left foot and neck Pain currently is 10 out of 10 on a pain scale. Pain began gradually. Pain: Also complains of. Neuro: Level of Consciousness is awake, alert, obeys commands, Oriented to person, place, time, situation, Appropriate for age. Cardiovascular: Patient's skin is warm and dry. Respiratory: Airway is patent Respiratory effort is even, unlabored, Respiratory pattern is regular, symmetrical. Historical: - Allergies: 19:54 Naproxen; ap3 - PMHx: 19:54 Anxiety; Bipolar disorder; Depression; Schizophrenia; ap3 - PSHx: 19:54 Appendectomy; Cholecystectomy; tubal ligation; ap3 - Infectious Disease History:: Denies. - Social history:: Smoking status: Patient reports the use of cigarette tobacco products, smokes one-half pack cigarettes per day. Screenin:55 Abuse screen: Denies threats or abuse. Nutritional screening: No deficits noted. ap3 Tuberculosis screening: No symptoms or risk factors identified. 19:55 [facility] ED Fall Risk Assessment (Adult) History of falling in the last 3 months, bm8 including since admission No falls in past 3 months (0 pts) Confusion or Disorientation No (0 pts) Intoxicated or Sedated No (0 pts) Impaired Gait No (0 pts) Mobility Assist Device Used No (0 pt) Altered Elimination No (0 pt) Score/Fall Risk Level 0 - 2 = Low Risk Oriented to surroundings, Maintained a safe environment, Educated pt \T\ family on fall prevention, incl call for assistance when getting out of bed, Assessed \T\ reinforced patient's understanding of fall precautions, Hourly rounding (assess needs \T\ fall precautionary measures) done, Used ambulatory aids as needed (educated on \T\ assisted with), Used gait belt as appropriate. Assessment: 19:55 Pain: Complains of pain in neck and left foot and right foot and back Pain currently is bm8 10 out of 10 on a pain scale. Neuro: No deficits noted. Level of Consciousness is awake, alert, obeys commands, Oriented to person, place, time, situation, Appropriate for age. Cardiovascular: Reports chest pain, shortness of breath, along sides Heart tones S1 S2 present. Respiratory: Airway is patent Respiratory effort is even, unlabored, Respiratory pattern is regular, symmetrical. GI: No signs and/or symptoms were reported involving the gastrointestinal system. : No signs and/or symptoms were reported regarding the genitourinary system. EENT: No signs and/or symptoms were reported regarding the EENT system. Derm: No signs and/or symptoms reported regarding the dermatologic system. Musculoskeletal: Circulation, motion, and sensation intact. Capillary refill < 3 seconds, in bilateral fingers. toes. Range of motion: intact in all extremities, Reports pain in neck and left foot and right foot and back and head since 2-3 days when her hotel bed collasped. Pain is 10 out of 10 on a pain scale. 20:25 Reassessment: Patient appears in no apparent distress at this time. No changes from bm8 previously documented assessment. Patient and/or family updated on plan of care and expected duration. Pain level reassessed. Patient is alert, oriented x 3, equal unlabored respirations, skin warm/dry/pink. Vital Signs: 19:51 BP 153 / 112; Pulse 88; Resp 19; Temp 97.6; Pulse Ox 99% on R/A; Height 5 ft. 5 in. ; ap3 Pain 10/10; 20:25 BP 172 / 81; Pulse 85; Resp 17; Temp 97.6; Pulse Ox 99% ; Pain 10/10; bm8 19:51 Pain Scale: Adult ap3 20:25 Pain Scale: Adult bm8 [place] Coma Score: 19:55 Eye Response: spontaneous(4). Motor Response: obeys commands(6). Verbal Response: bm8 oriented(5). Total: 15. 20:25 Eye Response: spontaneous(4). Motor Response: obeys commands(6). Verbal Response: bm8 oriented(5). Total: 15. ED Course: 19:22 Patient arrived in ED. im 19:39 Bruce Wright PA is PHCP. cp 19:39 Wayne Mazariegos MD is Attending Physician. cp 19:53 Triage completed. ap3 19:55 Patient has correct armband on for positive identification. Bed in low position. Call bm8 light in reach. Side rails up X 1. Client placed on continuous cardiac and pulse oximetry monitoring. NIBP monitoring applied. Pulse ox on. NIBP on. Door closed. Noise minimized. Pillow given. Verbal reassurance given. 19:55 No provider procedures requiring assistance completed. bm8 20:18 Wayne Mazariegos MD is Referral Physician. ec2 20:18 Referral Physician role handed off by Wayne Mazariegos MD ec2 20:21 Flip Wood, RN is Primary Nurse. bm8 20:25 Provided Education on: post er care, need to follow up with ortho - back specialist. bm8 20:25 Patient did not have IV access during this emergency room visit. bm8 Administered Medications: 20:21 Drug: [place] PO 10 mg-325 mg 1 tabs PO once Route: PO; bm8 20:25 Follow up: Response: No adverse reaction bm8 Medication: 19:55 VIS not applicable for this client. bm8 Outcome: 20:18 Discharge ordered by . ec2 20:25 Discharged to home ambulatory, bm8 20:25 Condition: stable 20:25 Discharge instructions given to patient, Instructed on discharge instructions, follow up and referral plans. no drinking with medication, no driving heavy equipment, medication usage, safety practices, Demonstrated understanding of instructions, follow-up care, medications, Prescriptions given X 1, 20:27 Patient left the ED. bm8 Signatures: Bruce Wright PA PA cp Prokisch, Amanda, RN RN ap3 Deborah Granados Edwin, MD MD ec2 Flip Wood RN RN bm8
[2024-07-12 20:35] VITALS: BP 172/81; TEMP 97.6; O2SAT 99
== END 2024-07-12 20:27 | disposition home or self-care (01) ==
LOC: ER 19:19
DX: M54.9 Dorsalgia, unspecified (principal); F17.210 Nicotine dependence, cigarettes, uncomplicated
CPT/HCPCS: 99284

== ENCOUNTER 2024-07-21 15:49 | Emergency (ER) | payer OTHER ==
--- OUTSIDE RECORDS SUMMARY | 2024-07-21 15:53 | XMS REPORT | Continuity of Care Document ---
Author Name Unknown Address [address] [facility] [address] [place] [address] [facility] Address [address] [facility] [address] [place] [address] Care Team Providers Care Mask Designer Name Role Phone BARBER ARAIZA Primary Care Physician Unavailab SETH Parsons Attending Clinician UnavailUTE Chatman Attending Clinician Unavailable Ute Swan DO Attending Clinician [phone] Doctor Unassigned, [place] Attending Clinician U Anali Harris Attending Clinician [phone] ANALI BOYKIN Attending Clinician Unavailable Monie Saleem RN Attending Clinician Unavailtamiko guerrero Pob, [facility] Lab Main Attending Clinician UnavailSeth Herr MD Attending Clinician [phone] Carmen, Adc Test Attending Clinician Unavailable Venkat Stark MD Attending Clinician [phone] Jaret Webb MD Attending Clinician [phone] JARET WEBB Attending Clinician Unavailable Sun Hamilton Attending Clinician [phone] Jimbo Sommers MD Attending Clinician [phone] DR GILMA FONTANEZ Attending Clinician Unava ilable SETH ROCA Admitting Clinician UnavailUTE Chatman Admitting Clinician Unavailable Seth Roca MD Admitting Clinician [phone] DR GILMA FONTANEZ Admitting Clinician Unava ilable Payers Payer Name Policy Type Policy Number Effective Date Expirati on Date Source [facility] [id number] 2018 00:00:00 Problems Condition Name Condition Details [...] Added automatic ally from request for surgery [id number] [facility] Severe anxiety Severe anxiety Problem Active [facility] No known active problems No known active problems Disease [facility] Current moderate episode of major depressive disorder without prior episode Current moderate episode of major depressive disorder without prior episode Problem Active [facility] Bipolar affective disorder, current episode mixed, current episode severity unspecifie d Bipolar affective disorder, current episode mixed, current episode severity unspecifie d Problem Active [facility] Pain of joint of left ankle and foot Pain of joint of left ankle and foot Problem Active [facility] Closed nondisplac ed fracture of lateral malleolus of left fibula, initial encounter Closed nondisplac ed fracture of lateral malleolus of left fibula, initial encounter Problem Active [facility] Closed nondisplac ed fracture of lateral malleolus of left fibula with routine healing Closed nondisplac ed fracture of lateral malleolus of left fibula with routine healing Problem Active [facility] Left sciatic nerve pain Left sciatic nerve pain Problem Active [facility] Allergies, Adverse Reactions, Alerts Allergy Name Allergy Type Status Severity Reaction(s) Onset Date Inactive Date Treating Clinician Comments Source Tramadol Propensi ty to adverse reaction s Active Nausea and/or Vomiting 2017-11 00:00: 00 [facility] TRAMADOL DRUG INGREDI Active ITCHING 2017-11 00:00: 00 [facility] Toradol DA Active Unknown 11-28 00:00: 00 [facility] Neuronti n DA Active Unknown 11-28 00:00: 00 [facility] Naproxen DA Active Unknown 11-28 00:00: 00 [facility] Social History Social Habit Start Date Stop Date Quantity Comments Source History of tobacco use Cigarette Smoker [facility] Exposure to SARS-CoV-2 (event) 2022-12-09 00:00:00 2022-12-19 16:05:00 Not sure [facility] Alcohol intake 2020-09-29 00:00:00 2020-09-29 00:00:00 [facility] Cigarettes smoked current (pack per day) - Reported 2020-09-09 00:00:00 2020-09-09 00:00:00 [facility] Tobacco use and exposure 2020-09-09 00:00:00 2020-09-09 00:00:00 Smokeless tobacco non-user [facility] Tobacco Comment 2020-09-09 00:00:00 2020-09-09 00:00:00 1 pack/3 days [facility] History SDOH Alcohol Frequency 2020-09-06 00:00:00 2020-09-06 00:00:00 1 [facility] History SDOH Alcohol Std Drinks 2020-09-06 00:00:00 2020-09-06 00:00:00 99 [facility] History SDOH Alcohol Binge 2020-09-06 00:00:00 2020-09-06 00:00:00 1 [facility] Sex Assigned At 1975 00:00:00 1975 00:00:00 [facility] Smoking Status Start Date Stop Date Source Smokes tobacco daily 2020-09-09 00:00:00 [facility] Unknown if ever smoked [facility] Medications Ordered Medication Name Filled Medication Name Start Date Stop Date Current Medication? Ordering Clinician Indication Dosage Frequency Signature (SIG) Comments Components Source hydrOXYzine (ATARAX) tablet 25 mg 12-19 22:00: 00 12-19 21:57 :00 No 25mg 25 mg, Oral, ONCE, 1 dose, On Sat12/19/22 at 1600, BOBBI [facility] naproxen sodium 550 mg tablet 12-19 00:00: 00 Yes [id number] 550mg Take 1 tablet by mouth in the morning and 1 tablet in the evening. Take with meals. [facility] methylPREDN ISolone 4 mg tablets 12-19 00:00: 00 Yes [id number] Take by mouth SEE-INSTRU CTIONS. follow package directions [facility] hydrOXYzine 50 mg capsule 12-19 00:00: 00 01-19 05:59 :00 No [id number] 50mg Take 1 capsule by mouth 4 (four) times daily as needed for Anxiety for up to 30 days. [facility] methocarbam oL 500 mg tablet 12-19 00:00: 00 12-25 05:59 :00 No [id number] 500mg Take 1 tablet by mouth in the morning and 1 tablet at noon and 1 tablet in the evening. Do all this for 5 days. [facility] acetaminoph en-codeine (TYLENOL-CO DEINE #3) 300-30 mg tablet 2019-11 00:00: 00 Yes [id number] 1{tbl} Take 1 tablet by mouth every 4 (four) hours as needed for Pain (scale 4-6) or Pain (scale 7-10). Indication s: chronic pain [facility] clindamycin 150 mg capsule 2019-11 00:00: 00 Yes TAKE 2 CAPSULES BY MOUTH 4 TIMES DAILY FOR 10 DAYS [facility] lactated ringers IV infusion 1,000 mL 2019-11 19:45: 00 Yes 1000mL at 75 mL/hr, 1,000 mL, IV Infusion, CONTINUOUS , Starting Sat09/12/20 at 1345, Until Discontinu ed, Routine, PACU [facility] HYDROmorpho ne (DILAUDID) injection 0.2 mg 2019-11 19:35: 58 Yes .2mg 0.2 mg, Slow IV Push, Q5MIN PRN, 10 doses, Starting 09/12/20 at 1335, Until Discontinu ed, Routine, Pain (scale 7-10), PACU
Us e approved by (Faculty): PACU USE -ANESTHESI A SERVICE-HY DROMORPHON E INJECTIONS [facility] FENTanyl PF (SUBLIMAZE (PF)) injection 25 mcg 2019-11 19:35: 58 Yes 25ug 25 mcg, Slow IV Push, Q5MIN PRN, 4 doses, Starting Sat09/12/20 at 1335, Until Discontinu ed, Routine, Pain (scale 4-6), PACU [facility] ondansetron (ZOFRAN (PF)) injection 4 mg 2019-11 19:35: 58 Yes 4mg 4 mg, Slow IV Push, PRN, 1 dose, Starting Sat09/12/20 at 1335, Until Discontinu ed, Routine, Nausea and Vomiting (N/V), PACU [facility] lactated ringers IV infusion 1,000 mL 2019-11 14:30: 00 09-12 14:30 :00 No 1000mL at 42 mL/hr, 1,000 mL, IV Infusion, ONCE, 1 dose, Sat09/12/20 at 0830, Routine, DSU Pre-op [facility] acetaminoph en-codeine 300-60 mg tablet 2019-11 00:00: 00 09-20 05:59 :00 No [id number] 1{tbl} Take 1 tablet by mouth every 6 (six) hours as needed for Pain (pain score 4-10) for up to 7 days. Indication s: acute pain [facility] clindamycin 150 mg capsule 2019-11 0- 00:00: 00 09-17 05:59 :00 No [id number] 300mg Take 2 capsules by mouth 4 (four) times daily for 10 days. [facility] divalproex 500 mg EC tablet 2019-11 00:00: 00 Yes 500mg Take 500 mg by mouth 2 (two) times daily. [facility] traZODone 100 mg tablet 2019-11 00:00: 00 Yes TAKE 1 TO 2 TABLETS BY MOUTH EVERY DAY AT BEDTIME DIRECTED NEEDED FOR INSOMNIA [facility] hydrOXYzine 50 mg capsule 2019-11 00:00: 00 12-19 00:00 :00 No TAKE 1 CAPSULE BY MOUTH THREE TIMES DAILY NEEDED FOR ACUTE ANXIETY [facility] ondansetron (ZOFRAN (PF)) injection 4 mg 06-08 14:15: 00 06-08 13:25 :00 No 4mg 4 mg, Slow IV Push, ONCE, 1 dose, Sat06/08/20 at 0915, [facility] morpHINE injection 4 mg 06-08 14:15: 00 06-08 13:25 :00 No 4mg 4 mg, Slow IV Push, ONCE, 1 dose, Sat06/08/20 at 0915, [facility] LORazepam (ATIVAN) tablet 2 mg 07-17 00:34: 00 07-17 00:37 :00 No 2mg 2 mg, Oral, ONCE, 1 dose, [facility] 07/16/19 at 1945, [facility] LORazepam (ATIVAN) tablet 2 mg 07-16 20:56: 00 07-16 21:02 :00 No 2mg 2 mg, Oral, ONCE, 1 dose, [facility] 07/16/19 at 1600, [facility] Tylenol # 3 Tylenol # 3 04-02 00:00: 00 06-06 00:00 :00 No Mac Osorio one tab [facility] Acetaminoph en-Codeine #3 Acetaminoph en-Codeine #3 Yes Mac Osorio not defined [facility] Lorazepam Lorazepam Yes Mac Osorio 1 tablet at bedtime as needed [facility] No known medications No Un tin [facility] No known medications No Un tin [facility] No known medications No Un tin [facility] Effexor Effexor Yes Mac Osorio 1 tablet with food [facility] Klonopin Klonopin Yes Mac Osorio 1 tablet at bedtime [facility] Zoloft Zoloft Yes Mac Osorio 2 tab [facility] Depakote Depakote Yes Mac Osorio not defined [facility] Vital Signs Vital Name Observation Time Observation Value Comments Edward dubois Body temperature 2022-12-19 21:47:00 36.33 Sharona [facility] Systolic blood pressure 2022-12-19 21:43:00 105 mm[Hg] [facility] Diastolic blood pressure 2022-12-19 21:43:00 71 mm[Hg] [facility] acute hospital Heart rate 2022-12-19 21:43:00 99 /min [facility] Respiratory rate 2022-12-19 21:43:00 22 /min [facility] Body weight 2022-12-19 21:43:00 61.236 kg [facility] BMI 2022-12-19 21:43:00 22.12 kg/m2 [facility] Oxygen saturation in Arterial blood by Pulse oximetry 2022-12-19 21:43:00 97 /min [facility] acute [facility] Systolic blood pressure 2020-09-29 19:53:00 118 mm[Hg] [facility] acute hospital Diastolic blood pressure 2020-09-29 19:53:00 77 mm[Hg] [facility] acute hospital Heart rate 2020-09-29 19:53:00 79 /min [facility] Body height 2020-09-29 19:53:00 166.4 cm [facility] Systolic blood pressure 2020-09-12 20:05:00 136 mm[Hg] [facility] acute hospital Diastolic blood pressure 2020-09-12 20:05:00 85 mm[Hg] [facility] acute hospital Heart rate 2020-09-12 20:05:00 51 /min [facility] Body temperature 2020-09-12 20:05:00 36.67 Sharona [facility] Respiratory rate 2020-09-12 20:05:00 19 /min [facility] Oxygen saturation in Arterial blood by Pulse oximetry 2020-09-12 20:05:00 100 /min [facility] acute hospital Body height 2020-09-08 15:11:00 165.1 cm [facility] Body weight 2020-09-08 15:11:00 61.2 kg [facility] BMI 2020-09-08 15:11:00 22.45 kg/m2 [facility] Systolic blood pressure 2020-09-06 16:15:00 115 mm[Hg] [facility] acute hospital Diastolic blood pressure 2020-09-06 16:15:00 80 mm[Hg] [facility] acute hospital Heart rate 2020-09-06 16:15:00 69 /min [facility] Body height 2020-09-06 16:15:00 165.1 cm [facility] Body weight 2020-09-06 16:15:00 61.236 kg [facility] BMI 2020-09-06 16:15:00 22.47 kg/m2 [facility] Systolic blood pressure 2020-06-08 12:56:00 120 mm[Hg] General acute hospital Diastolic blood pressure 2020-06-08 12:56:00 79 mm[Hg] General acute hospital Heart rate 2020-06-08 12:56:00 76 /min [facility] Body temperature 2020-06-08 12:56:00 36.67 Sharona [facility] Respiratory rate 2020-06-08 12:56:00 16 /min [facility] Body weight 2020-06-08 12:56:00 68.04 kg [facility] BMI 2020-06-08 12:56:00 24.96 kg/m2 [facility] Oxygen saturation in Arterial blood by Pulse oximetry 2020-06-08 12:56:00 98 /min [facility] acute hospital Systolic blood pressure 2020-04-06 16:00:00 126 mm[Hg] [facility] acute hospital Diastolic blood pressure 2020-04-06 16:00:00 71 mm[Hg] General acute hospital Heart rate 2020-04-06 16:00:00 74 /min [facility] Body temperature 2020-04-06 16:00:00 37.22 Sharona [facility] Respiratory rate 2020-04-06 16:00:00 20 /min [facility] Body height 2020-04-06 16:00:00 165.1 cm [facility] Body weight 2020-04-06 16:00:00 68.04 kg [facility] BMI 2020-04-06 16:00:00 24.96 kg/m2 [facility] Oxygen saturation in Arterial blood by Pulse oximetry 2020-04-06 16:00:00 100 /min [facility] Systolic blood pressure 2019-07-17 00:00:00 132 mm[Hg] [facility] acute hospital Diastolic blood pressure 2019-07-17 00:00:00 76 mm[Hg] General acute hospital Heart rate 2019-07-17 00:00:00 66 /min [facility] Respiratory rate 2019-07-17 00:00:00 18 /min [facility] Oxygen saturation in Arterial blood by Pulse oximetry 2019-07-17 00:00:00 98 /min [facility] acute hospital Body temperature 2019-07-16 20:03:00 36.78 Sharona [facility] Body weight 2019-07-16 20:02:00 79.379 kg [facility] Weight 2013-04-14 00:39:00 752.96 KG Height 2013-04-14 00:39:00 165.1 CM Procedures Procedure Date / Time Performed Performing Clinician Source NOTICE OF PRIVACY PRACTICES 2021-07-02 19:00:14 Doctor Unassigned, [place] [facility] CONSENT/REFUSAL FOR DIAGNOSIS AND TREATMENT 2021-07-02 18:59:56 Doctor Unassigned, [place] [facility] XR FINGERS 2 VW RIGHT 2020-09-29 18:46:22 Carlos Eduardo Roca [facility] FL TIME OR (NON-REPORTABLE) 2020-09-12 19:39:39 Seth Roca [facility] FL TIME OR (NON-REPORTABLE) 2020-09-12 19:20:07 Seth Roca [facility] DAY SURGERY - ADC 2020-09-12 06:01:00 Doctor Ana ssigned, [place] [facility] XR CHEST 2 VW 2020-09-09 19:40:29 [facility]REFUSAL FOR DIAGNOSIS AND TREATMENT 2020-09-09 19:21:16 Doctor Unassigned, [place] [facility] ASSIGNMENT OF BENEFITS 2020-09-09 19:18:53 Docto r Unassigned, [place] [facility] DSU PRE-OP 2020-09-08 05:01:00 Doctor Unass igned, [place] [facility] ASSIGNMENT OF BENEFITS 2020-09-06 16:09:16 Docto r Unassigned, [place] [facility] POCT TEST 2020-06-08 13:22:00 [facility] 2020-06-08 13:22:00 Jaret Webb [facility] HEPATIC FUNCTION PANEL ([id number]) (ALB,T.PRO,BILI T,BU/BC,ALT,AST,ALK PHOS) 2020-06-08 13:22[facility] (NA, K, CL, CO2, GLUCOSE, BUN, CREATININE, CA) 2020-06-08 13:22:00 Tracey [facility] CBC WITH DIFF 2020-06-08 13:22:00 Jaret Webb [facility] URINALYSIS 2020-06-08 13:22:00 Jaret Webb [facility] RAPID STREP SCREEN FOR GROUP A 2020-04-06 16:23:00 Sun Castro [facility] NOTICE OF PRIVACY PRACTICES 2020-04-06 15:48:09 Doctor Unassigned, [place] [facility] CONSENT/REFUSAL FOR DIAGNOSIS AND TREATMENT 2020-04-06 15:47:58 Doctor Unassigned, [place] [facility] FREE T4 2019-07-16 20:51:00 [facility] THYROID STIMULATING HORMONE 2019-07-16 20:51:00 Jimbo Sommers [facility] HEPATIC FUNCTION PANEL ([id number]) (ALB,T.PRO,BILI T,BU/BC,ALT,AST,ALK PHOS) 2019-07-16 20:51:00 Jimbo Sommers [facility] BASIC METABOLIC PANEL (NA, K, CL, CO2, GLUCOSE, BUN, CREATININE, CA) 2019-07-16 20:51:00 Jimbo Sommers [facility] SALICYLATE 2019-07-16 20:51:00 Jimbo Sommers [facility] ETHANOL 2019-07-16 20:51:00 Jimbo Sommers [facility] CBC WITH DIFFERENTIAL 2019-07-16 20:51:00 Last Sommers [facility] URINALYSIS 2019-07-16 20:51:00 Jimbo Sommers [facility] ADC / LCC - DRUG SCREEN TRIAGE 2019-07-16 20:51:00 Jimbo Sommers [facility] POCT TEST 2019-07-16 20:37:00 Quintin Sommers [facility] EKG-12 LEAD 2019-07-16 20:28:43 [facility] NOTICE OF PRIVACY PRACTICES 2019-07-16 19:39:12 Doctor Unassigned, [place] [facility] CONSENT/REFUSAL FOR DIAGNOSIS AND TREATMENT 2019-07-16 19:38:59 Doctor Unassigned, [place] [facility] SKIN CLOSURE NEC 2013-04-14 00:00:00 [facility] Encounters Start Date/Time End Date/Time Encounter Type Admission Type Attending Clinicians Care Facility Care Department Encounter ID Source 2021-09-11 17:13:34 Emergency [facility] [id number] [facility] 2021-09-09 01:42:20 Outpatient SETH MCCANN [facility] PADMINI [id number] [facility] 2022-12-19 15:47:00 2022-12-19 18:02:00 Emergency X UTE SWAN [facility] ERT [id number] [facility] 2022-12-19 15:47:00 2022-12-19 18:02:00 Emergency Ute Swan [facility] [id number] 350.1.13.10 4.2.7.2.686 [id number] [facility] 2021-07-02 14:21:00 2021-07-02 15:17:00 Emergency [facility] [id number] 350.1.13.10 4.2.7.2.686 [id number] [facility] 2021-07-02 00:00:00 2021-07-02 00:00:00 Orders Only Doctor Unassigned, [place] [facility] [id number] 350.1.13.10 4.2.7.2.686 [id number] [facility] 2021-07-02 00:00:00 2021-07-02 00:00:00 Orders Only Doctor Unassigned, [place] [facility] [id number] 350.1.13.10 4.2.7.2.686 [id number] 2020-10-25 00:00:00 2020-10-25 00:00:00 Telephone Lucretia [facility] rocco [place] [id number] 350.1.13.10 4.2.7.2.686 [id number] [facility] 2020-10-25 00:00:00 2020-10-25 00:00:00 Telephone [facility] [id number] 350.1.13.10 4.2.7.2.686 [id number] 2020-10-17 14:00:00 2020-10-17 14:00:00 Outpatient R [facility] [id number] [facility] 2020-10-14 00:00:00 2020-10-14 00:00:00 Telephone Lucretia [facility] [id number] 350.1.13.10 4.2.7.2.686 [id number] [facility] 2020-10-14 00:00:00 2020-10-14 00:00:00 Nurse T[address] Monie Saleem [facility] 1.2.840.114 350.1.13.10 4.2.7.2.686 [id number] [facility] 2020-10-14 00:00:00 2020-10-14 00:00:00 Telephone [facility]ia [facility] [id number] 350.1.13.10 4.2.7.2.686 [id number] 2020-10-14 00:00:00 2020-10-14 00:00:[address] Monie Saleem [facility] 1.840.114 350.1.13.10 4.2.7.2.686 [id number] 2020-10-13 10:30:00 2020-10-13 10:30:00 Outpatient Anuj BOYKIN [facility] [id number] [facility] 2020-10-04 00:00:00 2020-10-04 00:00:00 Clinic Assessment [facility]cretia [facility] [id number] 350.1.13.10 4.2.7.2.686 [id number] [facility] 2020-10-04 00:00:00 2020-10-04 00:00:00 Clinic Assessment [facility] 1.20.114 350.1.13.10 4.2.7.2.686 [id number] 2020-10-03 14:00:00 2020-10-03 14:00:00 Outpatient Anuj LUCRETIA [facility] [id number] [facility] 2020-09-30 08:00:00 2020-09-30 08:00:00 Outpatient Anuj LUCRETIA [facility] [id number] [facility] 2020-09-30 07:42:57 2020-09-30 07:57:57 Mass Spec Visit Pob, Adc Lab Main Seth Roca [facility] 1.20.114 350.1.13.10 4.2.7.2.686 [id number] [facility] 2020-09-30 00:00:00 2020-09-30 00:00:00 Telephone Boy[place], [facility] rocco [place] 1.2.840.114 350.1.13.10 4.2.7.2.686 [id number] [facility] 2020-09-30 00:00:00 2020-09-30 00:00:00 Telephone Anali Boykin [facility] rocco [place] 1.2.840.114 350.1.13.10 4.2.7.2.686 [id number] 2020-09-29 12:28:56 2020-09-29 23:59:00 Hospital Encounter Seth Roca [facility] 1.2.840.114 350.1.13.10 4.2.7.2.686 [id number] [facility] 2020-09-29 13:51:51 2020-09-29 15:05:33 Office Visit Anali Boykin [facility] rocco [place] 1.2.840.114 350.1.13.10 4.2.7.2.686 [id number] [facility] 2020-09-29 13:45:00 2020-09-29 13:45:00 Outpatient R ANALI BOYKIN [facility] [id number] [facility] 2020-09-29 00:00:00 2020-09-29 00:00:00 Telephone Anali Boykin [facility] rocco [place] 1.2.840.114 350.1.13.10 4.2.7.2.686 [id number] [facility] 2020-09-28 00:00:00 2020-09-28 00:00:00 Telephone Seth Roca [facility] rocco [place] 1.2.840.114 350.1.13.10 4.2.7.2.686 [id number] [facility] 2020-09-28 00:00:00 2020-09-28 00:00:00 Telephone Seth Roca [facility] rocco [place] 1.2840.114 350.1.13.10 4.2.7.2.686 [id number] [facility] 2020-09-27 00:00:00 2020-09-27 00:00:00 Telephone Anali Boykin [facility] rocco [place] 1.2840.114 350.1.13.10 4.2.7.2.686 [id number] [facility] 2020-09-26 16:00:00 2020-09-26 16:00:00 Outpatient R LUCRETIA [facility] [id number] [facility] 2020-09-26 00:00:00 2020-09-26 00:00:00 Telephone Lucretia [facility] rocco [place] 1.2840.114 350.1.13.10 4.2.7.2.686 [id number] [facility] 2020-09-23 10:15:00 2020-09-23 10:15:00 Outpatient R SETH ROCA [facility] [id number] [facility] 2020-09-19 00:00:00 2020-09-19 00:00:00 Telephone RocaSeth Shun [facility] rocco [place] 1.20.114 350.1.13.10 4.2.7.2.686 [id number] [facility] 2020-09-12 08:14:00 2020-09-12 14:20:00 Hospital Encounter Seth Roca [facility] [place] 1.2840.114 350.1.13.10 4.2.7.2.686 [id number] [facility] 2020-09-12 00:00:00 2020-09-12 00:00:00 Orders Only Doctor Unassigned, [place] [facility] 1.2840.114 350.1.13.10 4.2.7.2.686 [id number] [facility] 2020-09-09 14:17:36 2020-09-09 23:59:00 Hospital Encounter Seth Roca [facility] 1.2.840.114 350.1.13.10 4.2.7.2.686 [id number] [facility] 2020-09-09 14:16:24 2020-09-09 14:31:24 Mass Spec Visit Pob, Adc Lab Main Seth Roca [facility] 1.2840.114 350.1.13.10 4.2.7.2.686 [id number] [facility] 2020-09-09 14:15:01 2020-09-09 14:30:01 Laboratory Only Only, Adc Test Lincoln Venkat [facility] 1.2840.114 350.1.13.10 4.2.7.2.686 [id number] [facility] 2020-09-09 14:00:00 2020-09-09 14:00:00 Outpatient R SETH ROCA [facility] [id number] [facility] 2020-09-08 00:00:00 2020-09-08 00:00:00 Orders Only Doctor Unassigned, [place] [facility] 1.2840.114 350.1.13.10 4.2.7.2.686 [id number] [id number] [facility] 2020-09-07 00:00:00 2020-09-07 00:00:00 Prep For Surgery Seth Roca [facility] 1.2.840.114 350.1.13.10 4.2.7.2.686 [id number] [facility] 2020-09-06 11:10:09 2020-09-06 11:25:09 Office [facility] 1.2.840.114 350.1.13.10 4.2.7.2.686 [id number] [facility] 2020-09-06 10:00:00 2020-09-06 10:00:00 Outpatient Anuj ANALI BOYKIN [facility] [id number] [facility] 2020-09-06 00:00:00 2020-09-06 00:00:00 Orders Only Doctor Unassigned, [place] [facility] 1.2840.114 350.1.13.10 4.2.7.2.686 [id number] [id number] [facility] 2020-06-08 07:57:26 2020-06-08 09:17:00 Emergency Tracey J[facility] 1.20.114 350.1.13.10 4.2.7.2.686 [id number] [facility] 2020-06-08 07:57:26 2020-06-08 07:57:26 Emergency X JARET WEBB [facility] ERT [id number] [facility] 2020-04-06 11:02:11 2020-04-06 12:59:00 Emergency Castro Sun [facility] 1.2.114 350.1.13.10 4.2.7.2.686 [id number] [facility] 2020-04-06 10:49:00 2020-04-06 10:49:00 Emergency X [facility] ERT [id number] [facility] 2020-04-06 00:00:00 2020-04-06 00:00:00 Orders Only Doctor Unassigned, [place] [facility] 1.20.114 350.1.13.10 4.2.7.2.686 [id number] [id number] [facility] 2019-07-16 15:08:41 2019-07-16 20:56:00 Emergency Jimbo Sommers [facility] 1.2840.114 350.1.13.10 4.2.7.2.686 [id number] [facility] 2019-05-20 16:15:00 2019-05-20 16:15:00 Outpatient [facility] [id number] [facility] 2019-05-07 15:30:00 2019-05-07 15:30:00 Outpatient [facility] [id number] [facility] 2019-05-07 14:28:00 2019-05-07 14:28:00 Outpatient [facility] [id number] [facility] 2019-05-06 11:28:00 2019-05-06 11:28:00 Outpatient [facility] [id number] [facility] 2019-05-05 14:00:00 2019-05-05 14:00:00 Outpatient [facility] Bone [facility] [id number] [facility] 2019-04-28 09:30:00 2019-04-28 09:30:00 Outpatient [facility] [id number] [facility] 2019-04-24 10:53:00 2019-04-24 10:53:00 Outpatient [facility] [id number] [facility] 2019-04-24 10:06:00 2019-04-24 10:06:00 Outpatient [facility] [id number] [facility] 2019-01-12 10:00:00 2019-01-12 10:00:00 Outpatient [facility] [id number] [facility] 2013-04-14 00:19:00 2013-04-14 03:12:00 Emergency E GILMA FONTANEZ [facility] ECC [id number] [facility] Results Test Description Test Time Test Comments [...] of middle phalanx of the right middlefinger. [facility] FL TIME OR (NON-REPORTABLE) 19:40:57 These images do not require a Radiology diagnostic report. [facility] FL TIME OR (NON-REPORTABLE) 19:23:57 These images do not require a Radiology diagnostic report. [facility] XR CHEST 2 VW 19:56:49 No evidence [...] are seen.IMPRESSIONNo evidence of acute cardiopulmonary disease. [facility] (ALB, T.PRO, BILI T, BU/BC, ALT, AST, ALK PHOS)2020-06-08 13:47:00* Test Item Value Reference Range Interpretation Comme nts TOTAL BILI (test code = 8709659591) 0.3 mg/dL 0.1-1.1 BILI UNCON (test code = 3300283905) 0.5 mg/dL 0.1-1.1 BILI CONJ (test code = 9535077803) 0.0 mg/dL 0-0.3 T PROTEIN (test code = 8317595763) 7.1 g/dL 6.3-8.2 ALBUMIN (test code = 2834677124) 4.2 g/dL 3.5-5 ALK PHOS (test code = 6826929694) 53 U/L 34-122 ALTv (test code = 1742-6) 22 U/L 5-35 AST(SGOT) (test code = 0086929157) 32 U/L 13-40 Lab Interpretation (test cod e = 18805-5) Normal [facility] [id number] 13:47:00* Test Item Value Reference Range Interpretation Comme nts LIPASE (test code = 2908763137) 142 U/L 0-220 Lab Interpretation (test cod e = 45762-7) Normal [facility]2020-07-29 13:47:00* Test Item Value Reference Range Interpretation Comme nts APPEARANCE (test code = 5842306275) Clear Clear COLOR (test code = 6206223597) Straw Yellow A PH (test code = 0348937984) 4.8-8.0 SP GRAVITY (test code = 8417661017) 1.003-1.030 L GLU U QUAL (test code = 3331388616) Normal Normal BLOOD (test code = 7426453026) Negative Negative KETONES (test code = 4239309375) Negative Negative PROTEIN (test code = 2887-8) Negative Negative UROBILIN (test code = 5110573897) Normal Normal BILIRUBIN (test code = 9722988930) Negative Negative NITRITE (test code = 8749811650) Negative Negative LEUK MAYNOR (test code = 8586272170) Negative Negative RBC/HPF (test code = 4133673200) <1 See_Comment [Automated messa ge] The system which generated this result transmitted reference range: 0 - 3 HPF. The reference range was not used to interpret this result as normal/abnormal. WBC/HPF (test code = 0529433837) <1 See_Comment [Automated messa ge] The system which generated this result transmitted reference range: 0 - 5 HPF. The reference range was not used to interpret this result as normal/abnormal. BACTERIA (test code = 5409308735) Negative Negative SQ EPITH (test code = 3897637162) <1 See_Comment [Automated messa ge] The system which generated this result transmitted reference range: <=2 HPF. The reference range was not used to interpret this result as normal/abnormal. Lab Interpretation (test code = 65284-7) Abnormal [facility] with [id number] 13:37:00* Test Item Value Reference Range Interpretation [...] g/dL 31.6-35.1 L RDW-SD (test code = 03480-3) 42.9 fL 39-49.9 RDW-CV (test code = 788-0) 16.6 % 12-15.5 H PLT (test code = 777-3) See_Comment [Automated messa ge] The system which generated this result transmitted reference range: 166 - 358 10*3/?L. The reference range was not used to interpret this result as normal/abnormal. MPV (test code = 82070-1) 9.3 fL 9.5-12.9 L NRBC/100 WBC (test code = 3994949866) See_Comment [Automated Clio ssage] The system which generated this result transmitted reference range: 0.0 - 10.0 /100 WBCs. The reference range was not used to interpret this result as normal/abnormal. NRBC x10^3 (test code = 9428260604) <0.01 See_Comment [Automated messa ge] The system which generated this result transmitted reference range: 10*3/?L. The reference range was not used to interpret this result as normal/abnormal. GRAN MAT (NEUT) % (test code = 770-8) 55.7 % IMM GRAN % (test code = 7033710591) 0.20 % LYMPH % (test code = 736-9) 30.8 % MONO % (test code = 5905-5) 10.2 % EOS % (test code = 713-8) 2.1 % BASO % (test code = 706-2) 1.0 % GRAN MAT x10^3(ANC) (test code = 4339162073) 3.40 10*3/uL 1.88-7.09 IMM GRAN x10^3 (test code = 0681204073) <0.03 0-0.06 LYMPH x10^3 (test code = 731-0) 1.88 10*3/uL 1.32-3.29 MONO x10^3 (test code = 742-7) 0.62 10*3/uL 0.33-0.92 EOS x10^3 (test code = 711-2) 0.13 10*3/uL 0.03-0.39 BASO x10^3 (test code = 704-7) 0.06 10*3/uL 0.01-0.07 Lab Interpretation (test code = 09047-4) [facility]normal [facility] [id number] 13:22:00* Test Item Value Reference Range Interpretation Comme nts POCT PREG (test code = 1605) NEGATIVE On board controls acceptable with C Line (test code = 3574) PRESENT POCT PREG LOT # (test code = 3575) [id number] POCT PREG TEST DATE ( test code = 3576) 08/10/2021 Lab Interpretation (test cod e = 36665-0) Normal [facility] [id number] 16:56:00* Test Item Value Reference Range Interpretation Comme nts Streptococcus pyogenes (grou p A) antigen (test code = 97032-1) Negative Negative Lab Interpretation (test cod e = 88564-7) Normal [facility]inalysis2019-09-05 22:17:00* Test Item Value Reference Range Interpretation Comme nts APPEARANCE (test code = 1202216866) Clear Clear COLOR (test code = 9784844330) Yellow Yellow PH (test code = 0790575320) 4.8-8.0 SP GRAVITY (test code = 0087921041) 1.003-1.030 GLU U QUAL (test code = 1585819834) Negative Negative BLOOD (test code = 5001447894) Trace Negative A KETONES (test code = 8565825784) Trace Negative A PROTEIN (test code = 2887-8) Negative Negative UROBILIN (test code = 2938667334) 0.2 mg/dL See_Comment [Automated TransMed Systemsa ge] The system which generated this result transmitted reference range: 0-1.0 mg/dL. The reference range was not used to interpret this result as normal/abnormal. BILIRUBIN (test code = 7570718573) Small Negative A NITRITE (test code = 7485267812) Negative Negative LEUK MAYNOR (test code = 1462256933) Negative Negative RBC/HPF (test code = 8690840304) See_Comment [Automated [employer] Systemsa ge] The system which generated this result transmitted reference range: 0 - 3 HPF. The reference range was not used to interpret this result as normal/abnormal. WBC/HPF (test code = 2051022365) See_Comment [Automated [employer] Systemsa ge] The system which generated this result transmitted reference range: 0 - 5 HPF. The reference range was not used to interpret this result as normal/abnormal. BACTERIA (test code = 5262499728) Negative Negative AMORPHOUS (test code = 8004315915) Few HPF SQ EPITH (test code = 2980490613) HPF Ictotest (test code = 3590740485) Negative Lab Interpretation (test code = 35464-9) Abnormal [facility] STIMULATING [id number] 22:15:00 * Test Item Value Reference Range Interpretation Comme nts TSH (test code = 5964049982) See_Comment [Automated [employer] Systemsa ge] The system which generated this result transmitted reference range: 0.45 - 4.70 mIU/L. The reference range was not used to interpret this result as normal/abnormal. Lab Interpretation (test code = 72388-5) Normal [facility] [id number] 22:01:00* Test Item Value Reference Range Interpretation Comme nts FREE T4 (test code = 9364008707) 1.34 ng/dL 0.78-2.2 Lab Interpretation (test cod e = 27558-5) Normal [facility] [id number] 21:59:00* Test Item Value Reference Range Interpretation Comme nts BENZO U (test code = 6095909818) Presumptive Positive Negative A ILEANA U (test code = 0080044035) Negative Negative AMPHET (test code = 9555650825) Negative Negative THC (test code = 5044283485) Negative Negative METHADONE (test code = 5843059346) Negative Negative Meth U (test code = 1129065585) Negative Negative OPIATES (test code = 8954958508) Negative Negative Cocaine Metabolite (test code = 0630721391) Presumptive Positive Negative A PROPOXY (test code = 0080317925) Negative Negative Tric U (test code = 3166418114) Negative Negative PCP (test code = 7765697455) Negative Negative OXYCOD (test code = 0924141409) Negative Negative LUCY (test code = LUCY) [...] legal testing). Lab Interpretation (test code = 08205-4) Abnormal [facility]2019-09-05 21:54:00* Test Item Value Reference Range Interpretation Comme nts ALCOHOL (test code = 0094509963) <10 mg/dL LUCY (test code = LUCY) <10 Whmguuyq24-667 Toxic>100 Depression of SHOT BLASTER>400 Fatalities Reported [facility]ano[facility]ALIC[facility]2019-09-05 21:54:00* Test Item Value Reference Range Interpretation Comme nts SALICYLATE (test code = 9891704509) <10 mg/L LUCY (test code = LUCY) Therapeutic Range: ? Analgesic and Antipyretic Use? 20-100 mg/L? Anti-Inflammatory Use? 100-250 mg/LToxic Range:? Greater than 300 mg/L [facility]ET[facility]INOPHEN2019-09-05 21:54:00* Test Item Value Reference Range Interpretation Comme nts ACETAMINOP (test code = 0803935974) <10.0 10-30 L LUCY (test code = LUCY) Toxic: Greater derek n 200 ug/mL @ 4 hour post ingestion or greater than 50 ug/mL @ 12 hour post ingestion Lab Interpretation (test code = 68619-8) Abnormal [facility] Function [facility] (ALB, T.PRO, BILI T, BU/BC, ALT, AST, ALK PHOS)2019-07-16 21:43:00* Test Item Value Reference Range Interpretation Comme nts TOTAL BILI (test code = 2300203906) 0.2 mg/dL 0.1-1.1 BILI UNCON (test code = 7356189233) 0.2 mg/dL 0.1-1.1 BILI CONJ (test code = 6342410382) 0.0 mg/dL 0-0.3 T PROTEIN (test code = 0898301496) 7.2 g/dL 6.3-8.2 ALBUMIN (test code = 4354581871) 4.4 g/dL 3.5-5 ALK PHOS (test code = 6488153118) 54 U/L 34-122 ALT(SGPT) (test code = 3864747615) 26 U/L 9-51 AST(SGOT) (test code = 5920918943) 25 U/L 13-40 Lab Interpretation (test cod e = 81160-7) Normal [facility] Metabolic Panel (NA, K, CL, CO2, GLUCOSE, BUN, CREATININE, CA)2019-07-16 21:42:00* Test Item Value Reference Range Interpretation Comme nts NA (test code = 5720845065) 148 mmol/L 135-145 H K (test code = 1629594403) 3.4 mmol/L 3.5-5 L CL (test code = 3252307030) 113 mmol/L 98-108 H CO2 TOTAL (test code = 1691971683) 25 mmol/L 23-31 AGAP (test code = 1730170715) 2-16 BUN (test code = 7849014039) 11 mg/dL 7-23 GLUCOSE (test code = 9386223080) 98 mg/dL 70-110 CREATININE (test code = 2284743025) 0.78 mg/dL 0.5-1.04 CALCIUM (test code = 9937190767) 9.2 mg/dL 8.6-10.6 eGFR Calculation (Non-) (test code = 6189921155) mL/min/1.73m2 eGFR Calculation () (test code = 8761868820) mL/min/1.73m2 LUCY (test code = LUCY) Association [...] imaging tests). Lab Interpretation (test code = 85553-9) Abnormal [facility] WITH [id number] 21:24:00* Test Item Value Reference Range Interpretation Comme nts WBC (test code = 6690-2) See_Comment L [[employer]] The system which generated this result transmitted reference range: 4.30 - 11.10 10*3/?L. The reference range was not used to interpret this result as normal/abnormal. RBC (test code = 789-8) See_Comment [[employer]] The system which generated this result transmitted [...] g/dL 31.6-35.1 L RDW-SD (test code = 94284-8) 51.6 fL 39-49.9 H RDW-CV (test code = 788-0) 20.4 % 12-15.5 H PLT (test code = 777-3) See_Comment [Automated messa ge] The system which generated this result transmitted reference range: 166 - 358 10*3/?L. The reference range was not used to interpret this result as normal/abnormal. MPV (test code = 28907-3) 9.2 fL 9.5-12.9 L NRBC/100 WBC (test code = 3652867267) See_Comment [Automated me ssage] The system which generated this result transmitted reference range: 0.0 - 10.0 /100 WBCs. The reference range was not used to interpret this result as normal/abnormal. NRBC x10^3 (test code = 8032781498) <0.01 See_Comment [Automated messa ge] The system which generated this result transmitted reference range: 10*3/?L. The reference range was not used to interpret this result as normal/abnormal. GRAN MAT (NEUT) % (test code = 770-8) 58.7 % IMM GRAN % (test code = 1640217366) 0.30 % LYMPH % (test code = 736-9) 24.1 % MONO % (test code = 5905-5) 15.5 % EOS % (test code = 713-8) 0.8 % BASO % (test code = 706-2) 0.6 % GRAN MAT x10^3(ANC) (test code = 7302872291) 2.12 10*3/uL 1.88-7.09 IMM GRAN x10^3 (test code = 4676494714) <0.03 0-0.06 LYMPH x10^3 (test code = 731-0) 0.87 10*3/uL 1.32-3.29 L MONO x10^3 (test code = 742-7) 0.56 10*3/uL 0.33-0.92 EOS x10^3 (test code = 711-2) 0.03 10*3/uL 0.03-0.39 BASO x10^3 (test code = 704-7) <0.03 0.01-0.07 Lab Interpretation (test code = 66640-8) Abnormal [facility], [id number] 20:37:00 * Test Item Value Reference Range Interpretation Comme nts POCT PREG (test code = 1605) negative On board controls acceptable with C Line (test code = 3574) present POCT PREG LOT # (test code = 3575) [id number] POCT PREG TEST DATE ( test code = 3576) 11/10/2020 Lab Interpretation (test cod e = 42338-2) [facility]"
[2024-07-21] MEDS ORDERED: HYDROCODONE/APAP 5/325 MG TAB ONE (17:10)
[2024-07-21 17:40] LABS: SARS-CoV-2 Antigen CONTROL BLUE LINE VIS/BG OK; SARS-CoV-2 Antigen Rapid Res Negative (Negative)
--- NOTE | 2024-07-21 17:45 | ER ---
Nurse's Notes [facility] Name: Jennifer Salazar Age: 49 yrs Sex: Female : 1975 Arrival Date: 07/21/2024 Time: 15:49 Bed 12 Private MD: Diagnosis: Sore throat, compression fracture thoracic spine Presentation: 07/21 16:36 Chief complaint: Patient states: sore throat and completed her ABX and is now breaking cm10 out in sweats. Pt is also complaining of back pain. Pt also complaining of hip pain. Coronavirus screen: Client denies travel out of the [place] in the last 14 days. Ebola Screen: Patient denies travel to an Ebola-affected area in the 21 days before illness onset. No symptoms or risks identified at this time. Initial Sepsis Screen: Does the patient meet any 2 criteria? No. Patient's initial sepsis screen is negative. Does the patient have a suspected source of infection? No. Patient's initial sepsis screen is negative. Risk Assessment: Do you want to hurt yourself or someone else? Patient reports no desire to harm self or others. Onset of symptoms was July 21, 2024. 16:36 Method Of Arrival: Ambulatory cm10 16:36 Acuity: BECKY 4 cm10 Triage Assessment: 16:38 General: Appears in no apparent distress. uncomfortable, Behavior is calm, cooperative. cm10 Neuro: No deficits noted. Level of Consciousness is awake, alert, obeys commands, Oriented to person, place, time, situation, Appropriate for age. Respiratory: No deficits noted. Airway is patent Respiratory effort is even, unlabored, Respiratory pattern is regular, symmetrical. 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 - Infectious Disease History:: Denies. - Social history:: Smoking status: Patient reports the use of cigarette tobacco products, smokes one-half pack cigarettes per day. Screenin:00 [facility] ED Fall Risk Assessment (Adult) History of falling in the last 3 months, me1 including since admission No falls in past 3 months (0 pts) Confusion or Disorientation No (0 pts) Intoxicated or Sedated No (0 pts) Impaired Gait No (0 pts) Mobility Assist Device Used No (0 pt) Altered Elimination No (0 pt) Score/Fall Risk Level 0 - 2 = Low Risk Maintained a safe environment, Provided non-skid footwear, Hourly rounding (assess needs \T\ fall precautionary measures) done. Abuse screen: Denies threats or abuse. Nutritional screening: No deficits noted. Tuberculosis screening: No symptoms or risk factors identified. Assessment: 17:00 General: Appears uncomfortable, well groomed, well developed, well nourished, Behavior me1 is calm, cooperative, appropriate for age, Reports sore throat and completed her ABX and is now breaking out in sweats. Pt is also complaining of back pain. Pt also complaining of hip pain. Pain: Complains of pain in back Pain does not radiate. Pain currently is 10 out of 10 on a pain scale. Quality of pain is described as sharp, Pain began gradually, Is continuous. Neuro: Level of Consciousness is awake, alert, obeys commands, Oriented to person, place, time, situation, Appropriate for age. Cardiovascular: Patient's skin is warm and dry. Respiratory: Airway is patent Trachea midline Respiratory effort is even, unlabored, Respiratory pattern is regular, symmetrical, Breath sounds are clear bilaterally. GI: No signs and/or symptoms were reported involving the gastrointestinal system. : No signs and/or symptoms were reported regarding the genitourinary system. EENT: Throat is reddened Reports pain when swallowing. Derm: Skin is intact, is healthy with good turgor, Skin is pink, warm \T\ dry. Musculoskeletal: Reports pain in back and buttocks. Vital Signs: 16:36 BP 147 / 98; Pulse 83; Resp 16; Temp 97.5; Pulse Ox 98% on R/A; Weight 74.84 kg; Height cm10 5 ft. 5 in. ; Pain 10/10; 18:15 BP 134 / 82; Pulse 63; Resp 17; Temp 98.1; Pulse Ox 100% ; Pain 6/10; me1 16:36 Body Mass Index 27.46 (74.84 kg, 165.1 cm) cm10 16:36 Pain Scale: Adult cm10 18:15 Pain Scale: Adult me1 ED Course: 15:52 Patient arrived in ED. ra3 15:54 Kendal Saunders MD is Attending Physician. sp3 16:38 Triage completed. cm10 16:39 Arm band placed on Patient placed in waiting room. cm10 17:00 Patient has correct armband on for positive identification. Bed in low position. Call me1 light in reach. Side rails up X 1. Provided Education on: POC. Verbalized understanding. . Client placed on continuous cardiac and pulse oximetry monitoring. NIBP monitoring applied. Pulse ox on. NIBP on. 17:00 No provider procedures requiring assistance completed. Patient did not have IV access me1 during this emergency room visit. 17:10 Strep Sent. cm10 17:10 Flu Sent. cm10 17:10 SARS RAPID Sent. cm10 17:13 COVID swab sent to lab. Flu and/or RSV swab sent to lab. Strep swab sent to lab. cm10 17:40 Tierney Salas, RN is Primary Nurse. me1 17:44 Edmar Joya MD is Referral Physician. sp3 Administered Medications: 17:12 Drug: HYDROcodone-acetaminophen PO 5 mg-325 mg 2 tabs PO once Route: PO; cm10 18:12 Follow up: Response: No adverse reaction; Pain is decreased me1 Medication: 17:00 VIS not applicable for this client. me1 Outcome: 17:44 Discharge ordered by . sp3 18:17 Discharged to home ambulatory, with friend, me1 18:17 Condition: stable 18:17 Discharge instructions given to patient, friend, Instructed on discharge instructions, follow up and referral plans. medication usage, Demonstrated understanding of instructions, follow-up care, medications, Prescriptions given X 1, 18:18 Patient left the ED. me1 Signatures: Kendal Saunders MD MD sp3 Jammie Bennett RN RN cm10 Tierney Salas RN RN me1 Guerline Carlos ra3 Corrections: (The following items were deleted from the chart) 18:12 16:36 Chief complaint: Patient states: sore throat and completed her ABX and is now me1 breaking out in sweats. Pt is also complaining of back pain. Pt also complaining of hip pain cm10
--- NOTE | 2024-07-21 17:45 | EDPHYS ---
Physician Documentation [facility] Name: Jennifer Salazar Age: 49 yrs Sex: Female : 1975 Arrival Date: 07/21/2024 Time: 15:49 Bed 12 Private MD: ED Physician Kendal Saunders HPI: 07/21 17:27 This 49 yrs old Female presents to ER via Ambulatory with complaints of Sore Throat, sp3 Ear Pain, Back Injury. 17:27 49-year-old female with history of bipolar disease, schizophrenia, recent strep sp3 infection status post amoxicillin and also recent COVID-19 exposure at [employer] presents to the ED with chief complaint continued sore throat and also mid back pain. She has been diagnosed with a compression fracture in the thoracic region and has been trying to get into an orthopedics office but has been unsuccessful. She also has no primary care physician. Her prior primary care physician was Dr. Joya. She is tearful at triage saying she just needs help getting "plugged". She denies any bowel or bladder dysfunction or any other significant neurological dysfunction or motor weakness. She also denies fever, cough, chest pain, shortness of breath, abdominal pain, vomiting, diarrhea, rash or any other signs or symptoms on ROS at this time.. [employer]: 18:16 LMP N/A - Post-menopause, Not me1 Historical: - Allergies: 16:38 Naproxen; cm10 - PMHx: 16:38 Anxiety; Bipolar disorder; Depression; Schizophrenia; cm10 - PSHx: 16:38 Appendectomy; Cholecystectomy; tubal ligation; cm10 - Immunization history:: Adult Immunizations up to date. - Infectious Disease History:: Denies. - Social history:: Smoking status: Patient reports the use of cigarette tobacco products, smokes one-half pack cigarettes per day. ROS: 17:28 Constitutional: Negative for fever, chills, and weight loss, Eyes: Negative for injury, sp3 pain, redness, and discharge, Neck: Negative for injury, pain, and swelling, Cardiovascular: Negative for chest pain, palpitations, and edema, Respiratory: Negative for shortness of breath, cough, wheezing, and pleuritic chest pain, Abdomen/GI: Negative for abdominal pain, nausea, vomiting, diarrhea, and constipation, Back: Negative for injury and pain, MS/Extremity: Negative for injury and deformity, Skin: Negative for injury, rash, and discoloration, Neuro: Negative for headache, weakness, numbness, tingling, and seizure, Psych: Negative for depression, anxiety, suicide ideation, homicidal ideation, and hallucinations, Allergy/Immunology: Negative for hives, rash, and allergies, Endocrine: Negative for neck swelling, polydipsia, polyuria, polyphagia, and marked weight changes, Exam: 17:38 Constitutional: This is a well developed, well nourished patient who is awake, alert, sp3 and in no acute distress. Head/Face: Normocephalic, atraumatic. Eyes: Pupils equal round and reactive to light, extra-ocular motions intact. Lids and lashes normal. Conjunctiva and sclera are non-icteric and not injected. Cornea within normal limits. Periorbital areas with no swelling, redness, or edema. Neck: Trachea midline, no thyromegaly or masses palpated, and no cervical lymphadenopathy. Supple, full range of motion without nuchal rigidity, or vertebral point tenderness. No Meningismus. Chest/axilla: Normal chest wall appearance and motion. Nontender with no deformity. No lesions are appreciated. Cardiovascular: Regular rate and rhythm with a normal S1 and S2. No gallops, murmurs, or rubs. Normal PMI, no JVD. No pulse deficits. Respiratory: Lungs have equal breath sounds bilaterally, clear to auscultation and percussion. No rales, rhonchi or wheezes noted. No increased work of breathing, no retractions or nasal flaring. Abdomen/GI: Soft, non-tender, with normal bowel sounds. No distension or tympany. No guarding or rebound. No evidence of tenderness throughout. 17:38 ENT: No significant erythema or abnormalities noted.. 17:38 Back: Patient states she has pain on movement. No step-offs on the back. Normal neurological exam. When not in triage, patient walking without difficulty., Vital Signs: 16:36 BP 147 / 98; Pulse 83; Resp 16; Temp 97.5; Pulse Ox 98% on R/A; Weight 74.84 kg; Height cm10 5 ft. 5 in. ; Pain 10/10; 18:15 BP 134 / 82; Pulse 63; Resp 17; Temp 98.1; Pulse Ox 100% ; Pain 6/10; me1 16:36 Body Mass Index 27.46 (74.84 kg, 165.1 cm) cm10 16:36 Pain Scale: Adult cm10 18:15 Pain Scale: Adult me1 MDM: 16:50 Patient medically screened. sp3 17:40 Data reviewed: vital signs, nurses notes, lab test result(s). ED course: 49-year-old sp3 female with chief complaint sore throat. Will assess for COVID-19, Influenza and strep. Regarding her back there is not much to do except pain control. Patient has been given Keller 2 tabs p.o. She will be given a list of primary care physician to follow-up with to obtain proper orthopedic referrals. Patient is not clinically septic, having ACS, pneumonia, or any other critical illness at this time. Vital signs are normal. We will safely discharge patient home once workup is complete.. 07/21 16:50 Order name: SARS RAPID; Complete Time: 17:41 sp3 07/21 16:50 Order name: Flu; Complete Time: 17:43 sp3 07/21 16:50 Order name: Strep sp3 07/21 17:44 Order name: Throat Culture EDMS Administered Medications: 17:12 Drug: HYDROcodone-acetaminophen PO 5 mg-325 mg 2 tabs PO once Route: PO; cm10 18:12 Follow up: Response: No adverse reaction; Pain is decreased me1 Disposition Summary: 07/21/24 17:44 Discharge Ordered Notes: Location: Home sp3 Condition: Stable sp3 Diagnosis - Sore throat, compression fracture thoracic spine sp3 Followup: sp3 - With: Edmar Joya MD - When: Upon discharge from the Emergency Department - Reason: Continuance of care Discharge Instructions: - Discharge Summary Sheet sp3 - Spinal Compression Fracture sp3 - Sore Throat, [id number] sp3 Forms: - Medication Reconciliation Form sp3 - Antibiotic Education sp3 - Prescription Opioid Use sp3 - Patient Portal Instructions sp3 - Leadership Thank You Letter sp3 Prescriptions: - Diclofenac Sodium 75 mg Oral Tablet Sustained Release - take 1 tablet ORAL route 2 times per day; 30 tablet; Refills: 0, Product sp3 Selection Permitted Signatures: Dispatcher [employer] EDKendal Powell MD MD sp3 Jammie Bennett RN RN cm10 Tierney Salas RN me1
[2024-07-21 18:43] VITALS: BP 134/82; TEMP 98.1; O2SAT 100
== END 2024-07-21 18:18 | disposition home or self-care (01) ==
LOC: ER 15:49
DX: J02.9 Acute pharyngitis, unspecified (principal); S22.009A Unspecified fracture of unspecified thoracic vertebra, initial encounter for closed fracture; Z11.52 Encounter for screening for COVID-19; F17.210 Nicotine dependence, cigarettes, uncomplicated
CPT/HCPCS: 36415; 87070; 87081; 87804; 87811; 99284

== ENCOUNTER 2025-02-22 10:58 | Emergency (ER) | payer MEDICAID ==
--- OUTSIDE RECORDS SUMMARY | 2025-02-22 11:03 | XMS REPORT | Continuity of Care Document ---
Author Name Unknown Address [address] [facility] [address] [place] [address] Organization [facility] [place] Address [address] [facility] 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 Phone BARBER SAUNDERS Primary Care Physician UnavailDione Rhodes Attending Clinician Unavail able Barber Saunders Attending Clinician Unavailable SETH ROCA Attending Clinician UnavailANNETTE Alegre Attending Clinician Ana Angelina Mayfield Attending Clinician [phone] TESFAYE WHATLEY Attending Clinician Unavailable TESFAYE WHATLEY Attending Clinician Unavailable Tesfaye Garcia Attending Clinician [phone] UTE SWAN Attending Clinician Unavailable Ute Swan DO Attending Clinician [phone] Doctor Unassigned, Ponder Attending Clinician Anali Carrington Attending Clinician [phone] ANALI BOYKIN Attending Clinician Unavailable Stiven RN, Monie Attending Clinician Unavailtamiko Bradshaw, [facility] Main Attending Clinician UnavailSeth Herr MD Attending Clinician [phone] Only, [facility] Test Attending Clinician Unavailable Venkat Stark MD Attending Clinician [phone] Jaret Webb MD Attending Clinician [phone] JARET WEBB Attending Clinician Unavailable Matthew HILLMAN Sun Attending Clinician [phone] Jimbo Sommers MD Attending Clinician [phone] DR GILMA FONTANEZ Attending Clinician Unava ilable SETH ROCA Admitting Clinician UnavailTESFAYE Hammond Admitting Clinician Unavailable UTE SWAN Admitting Clinician Unavailable Seth Roca MD Admitting Clinician [phone] DR GILMA FONTANEZ Admitting Clinician Unava ilable Payers Payer Name Policy Type Policy Number Effective Date Expirati on Date Source [facility] STAR PLUS [id number] 2018 00:00:00 [facility] STAR Plus [facility] 2 [id number] 2018 00:00:00 [facility] AETNA W/ DARON CastanedaOO [id number] 2023 00:00:00 2024 00:00:00 Problems Condition Name Condition Details Condition Category Status Onset Date Resolution Date Last Treatment Date Treating Clinician Comments Source Mixed anxiety and depressive disorder Mixed Anxiety and Depressive Disorder Problem Active 01-05 00:00: 00 [facility] Chronic back pain Chronic Back Pain Problem Active 01-05 00:00: 00 [facility] Paresthesi a of lower extremity Paresthesi a of Lower Extremity Problem Active 01-05 00:00: 00 [facility] Compressio n fracture of thoracic vertebra Compressio n Fracture of Thoracic Vertebra Problem Active 01-05 00:00: 00 [facility] Bipolar disorder Bipolar Disorder Problem Active 01-04 00:00: 00 [facility] History of manic depressive disorder History of Manic Depressive Disorder Problem Active 01-04 00:00: 00 [facility] Closed displaced fracture of middle phalanx of right middle finger, initial encounter Closed displaced fracture of middle phalanx of right middle finger, initial encounter Disease Active 2019-11 00:00: 00 Overview: Formattin g of this note might be different from the original. Added automatic ally from request for surgery [id number] [facility] [id number] Left sciatic nerve pain Problem [facility] [id number] WILFRED (generaliz ed anxiety disorder) Problem [facility] [id number] Pain of joint of left ankle and foot Problem [facility] [id number] Vitamin D deficiency Problem [facility] [id number] Bipolar affective disorder, current episode mixed, current episode severity unspecifie d Problem [facility] [id number] Treatment- resistant depression Problem [facility] [id number] Benzodiaze pine abuse Problem [facility] [id number] Nicotine dependence with current use Problem [facility] [id number] Bipolar disorder, current episode mixed, moderate Problem [facility] [id number] Other chronic pain Problem [facility] Overweight Overweight Problem [facility] [id number] Severe anxiety Problem [facility] [id number] Current moderate episode of major depressive disorder without prior episode Problem [facility] [id number] Closed nondisplac ed fracture of lateral malleolus of left fibula with routine healing Problem [facility] No known active problems No known active problems Disease [facility] Allergies, Adverse Reactions, Alerts Allergy Name Allergy Type Status Severity Reaction(s) Onset Date Inactive Date Treating Clinician Comments Source Tramadol Propensi ty to adverse reaction s Active Nausea and/or Vomiting 2017-11 00:00: 00 [facility] TRAMADOL DRUG INGREDI Active ITCHING 2017-11 00:00: 00 [facility] Toradol DA Active Unknown 11-28 00:00: 00 [facility] Neuronti n DA Active Unknown 11-28 00:00: 00 [facility] Naproxen DA Active Unknown 11-28 00:00: 00 [facility] Social History Social Habit Start Date Stop Date Quantity Comments Source History of Tobacco Use Current Smoker [facility]coh[facility] beverage intake 2024-09-23 00:00:00 2024-09-23 00:00:00 [facility] Exposure to SARS-CoV-2 (event) 2022-12-09 00:00:00 2022-12-19 16:05:00 Not sure [facility] Alcohol intake 2020-09-29 00:00:00 2020-09-29 00:00:00 [facility] History of Social function 2020-09-12 00:00:00 2020-09-12 00:00:00 [facility] Cigarettes smoked current (pack per day) - Reported 2020-09-09 00:00:00 2020-09-09 00:00:00 [facility] Tobacco use and exposure 2020-09-09 00:00:00 2020-09-09 00:00:00 Smokeless tobacco non-user [facility] Tobacco Comment 2020-09-09 00:00:00 2020-09-09 00:00:00 1 pack/3 days [facility] History SDOH Alcohol Frequency 2020-09-06 00:00:00 2020-09-06 00:00:00 1 [facility] History SDOH Alcohol Std Drinks 2020-09-06 00:00:00 2020-09-06 00:00:00 99 [facility] History SDOH Alcohol Binge 2020-09-06 00:00:00 2020-09-06 00:00:00 1 [facility] Smoking Status Start Date Stop Date Source Light Tobacco Smoker [facility] Smokes tobacco daily 2020-09-09 00:00:00 [facility] Unknown if ever smoked [facility] Medications Ordered Medication Name Filled Medication Name Start Date Stop Date Current Medication? Ordering Clinician Indication Dosage Frequency Signature (SIG) Comments Components Source traMADol HCl 100 MG traMADol HCl 100 MG -12 00:00: 00 No 1{table t_as_ne eded} QD traMADol HCl 100 MG Ketorolac Tromethamin e Ketorolac Tromethamin e 12-23 00:00: 00 No 60mg [facility] KCL (KLOR-CON M20) tablet 40 mEq 2023-11 02:15: 00 09-24 02:21 :00 No 40meq 40 mEq, Oral, ONCE, 1 dose, On Sat09/23/24 at 2015, BOBBI [facility] cefdinir (OMNICEF) capsule 300 mg 2023-11 01:45: 00 09-24 01:37 :00 No 300mg 300 mg, Oral, ONCE, 1 dose, On Sat09/23/24 at 1945, BOBBI, Reason for Anti-Infec tive: Documented Infection, Documented Infection Site: Urine, Duration of Therapy: Once (ED) [facility] ketorolac (TORADOL) injection 30 mg 2023-11 00:51: 00 09-24 00:59 :00 No 30mg 30 mg, Slow IV Push, ONCE, 1 dose, On Sat09/23/24 at 1900, [facility] hydrOXYzine (ATARAX) tablet 25 mg 2023-11 22:45: 00 09-23 23:47 :00 No 25mg 25 mg, Oral, ONCE, 1 dose, On Sat09/23/24 at 1645, BOBBI [facility] cefdinir 300 mg capsule 2023-11 00:00: 00 10-01 05:59 :00 No [id number] 300mg Take 1 capsule by mouth in the morning and 1 capsule in the evening. Do all this for 7 days. [facility] Acetaminoph en-Codeine 300-30 MG Acetaminoph en-Codeine 300-30 MG 9- 00:00: 00 No 1{table t_as_ne eded} QD Acetaminop hen-Codein e 300-30 MG traMADol HCl 50 MG traMADol HCl 50 MG 18 00:00: 00 No 1{table t_as_ne eded} QD traMADol HCl 50 MG tiZANidine HCl 4 MG tiZANidine HCl 4 MG -13 00:00: 00 No 1{table t} tiZANidine HCl 4 MG hydrOXYzine (ATARAX) tablet 25 mg 12-19 22:00: 00 12-19 21:57 :00 No 25mg 25 mg, Oral, ONCE, 1 dose, On Sat12/19/22 at 1600, BOBBI [facility] naproxen sodium 550 mg tablet 12-19 00:00: 00 Yes [id number] 550mg Take 1 tablet by mouth in the morning and 1 tablet in the evening. Take with meals. [facility] methylPREDN ISolone 4 mg tablets 12-19 00:00: 00 Yes [id number] Take by mouth SEE-INSTRU CTIONS. follow package directions [facility] hydrOXYzine 50 mg capsule 12-19 00:00: 00 01-19 05:59 :00 No [id number] 50mg Take 1 capsule by mouth 4 (four) times daily as needed for Anxiety for up to 30 days. [facility] methocarbam oL 500 mg tablet 12-19 00:00: 00 12-25 05:59 :00 No [id number] 500mg Take 1 tablet by mouth in the morning and 1 tablet at noon and 1 tablet in the evening. Do all this for 5 days. [facility] acetaminoph en-codeine (TYLENOL-CO DEINE #3) 300-30 mg tablet 2019-11 00:00: 00 Yes [id number] 1{tbl} Take 1 tablet by mouth every 4 (four) hours as needed for Pain (scale 4-6) or Pain (scale 7-10). Indication s: chronic pain [facility] clindamycin 150 mg capsule 2019-11 00:00: 00 Yes TAKE 2 CAPSULES BY MOUTH 4 TIMES DAILY FOR 10 DAYS [facility] lactated ringers IV infusion 1,000 mL 2019-11 19:45: 00 Yes 1000mL at 75 mL/hr, 1,000 mL, IV Infusion, CONTINUOUS , Starting Sat09/12/20 at 1345, Until Discontinu ed, Routine, PACU [facility] HYDROmorpho ne (DILAUDID) injection 0.2 mg 2019-11 19:35: 58 Yes .2mg 0.2 mg, Slow IV Push, Q5MIN PRN, 10 doses, Starting Sat09/12/20 at 1335, Until Discontinu ed, Routine, Pain (scale 7-10), PACU
Us e approved by (Faculty): PACU USE -ANESTHESI A SERVICE-HY DROMORPHON E INJECTIONS [facility] FENTanyl PF (SUBLIMAZE (PF)) injection 25 mcg 2019-11 19:35: 58 Yes 25ug 25 mcg, Slow IV Push, Q5MIN PRN, 4 doses, Starting Sat09/12/20 at 1335, Until Discontinu ed, Routine, Pain (scale 4-6), PACU [facility] ondansetron (ZOFRAN (PF)) injection 4 mg 2019-11 19:35: 58 Yes 4mg 4 mg, Slow IV Push, PRN, 1 dose, Starting Sat09/12/20 at 1335, Until Discontinu ed, Routine, Nausea and Vomiting (N/V), PACU [facility] lactated ringers IV infusion 1,000 mL 2019-11 14:30: 00 09-12 14:30 :00 No 1000mL at 42 mL/hr, 1,000 mL, IV Infusion, ONCE, 1 dose, Sat09/12/20 at 0830, Routine, DSU Pre-op [facility] acetaminoph en-codeine 300-60 mg tablet 2019-11 00:00: 00 09-20 05:59 :00 No [id number] 1{tbl} Take 1 tablet by mouth every 6 (six) hours as needed for Pain (pain score 4-10) for up to 7 days. Indication s: acute pain [facility] clindamycin 150 mg capsule 2019-11 0-27 00:00: 00 09-17 05:59 :00 No [id number] 300mg Take 2 capsules by mouth 4 (four) times daily for 10 days. [facility] divalproex 500 mg EC tablet 2019-11 00:00: 00 Yes 500mg Take 500 mg by mouth 2 (two) times daily. [facility] traZODone 100 mg tablet 2019-11 00:00: 00 Yes TAKE 1 TO 2 TABLETS BY MOUTH EVERY DAY AT BEDTIME DIRECTED NEEDED FOR INSOMNIA [facility] hydrOXYzine 50 mg capsule 2019-11 00:00: 00 12-19 00:00 :00 No TAKE 1 CAPSULE BY MOUTH THREE TIMES DAILY NEEDED FOR ACUTE ANXIETY [facility] ondansetron (ZOFRAN (PF)) injection 4 mg 06-08 14:15: 06-08 13:25 :00 No 4mg 4 mg, Slow IV Push, ONCE, 1 dose, Sat06/08/20 at 0915, [facility] morpHINE injection 4 mg 06-08 14:15: 06-08 13:25 :00 No 4mg 4 mg, Slow IV Push, ONCE, 1 dose, Sat06/08/20 at 0915, STAT [facility] LORazepam (ATIVAN) tablet 2 mg 07-17 00:34: 00 07-17 00:37 :00 No 2mg 2 mg, Oral, ONCE, 1 dose, [facility] 07/16/19 at 1945, [facility] LORazepam (ATIVAN) tablet 2 mg 07-16 20:56: 00 07-16 21:02 :00 No 2mg 2 mg, Oral, ONCE, 1 dose, [facility] 07/16/19 at 1600, [facility] clonazepam 0.5 mg tablet clonazepam 0.5 mg tablet No clonazepam 0.5 mg tablet [facility] diclofenac sodium 75 mg tablet,durga yed release TAKE 1 TABLET BY MOUTH TWICE A DAY diclofenac sodium 75 mg tablet,durga yed release TAKE 1 TABLET BY MOUTH TWICE A DAY No diclofenac sodium 75 mg tablet,del ayed release TAKE 1 TABLET BY MOUTH TWICE A DAY [facility] dicyclomine 20 mg tablet TAKE 1 TABLET BY MOUTH EVERY 8 HOURS NEEDED ABDOMINAL PAIN dicyclomine 20 mg tablet TAKE 1 TABLET BY MOUTH EVERY 8 HOURS NEEDED ABDOMINAL PAIN No dicyclomin e 20 mg tablet TAKE 1 TABLET BY MOUTH EVERY 8 HOURS NEEDED ABDOMINAL PAIN [facility] escitalopra m 20 mg tablet TAKE 1 TABLET BY MOUTH ONCE DAILY FOR DEPRESSION escitalopra m 20 mg tablet TAKE 1 TABLET BY MOUTH ONCE DAILY FOR DEPRESSION No escitalopr am 20 mg tablet TAKE 1 TABLET BY MOUTH ONCE DAILY FOR DEPRESSION [facility] Diclofenac Sodium 75 MG Diclofenac Sodium 75 MG No Diclofenac Sodium 75 MG Gabapentin 300 MG Gabapentin 300 MG No 1{capsu le} Gabapentin 300 MG Xanax 0.5 MG Xanax 0.5 MG No 1{table t} BID Xanax 0.5 MG Sertraline HCl 150 MG Sertraline HCl 150 MG No 1{capsu le} BID Sertraline HCl 150 MG gabapentin 600 mg tablet Take 1 tablet qid gabapentin 600 mg tablet Take 1 tablet qid No gabapentin 600 mg tablet Take 1 tablet qid [facility] hydroxyzine HCl 50 mg tablet TAKE 1 TABLET BY MOUTH THREE TIMES DAILY NEEDED FOR ANXIETY hydroxyzine HCl 50 mg tablet TAKE 1 TABLET BY MOUTH THREE TIMES DAILY NEEDED FOR ANXIETY No hydroxyzin e HCl 50 mg tablet TAKE 1 TABLET BY MOUTH THREE TIMES DAILY NEEDED FOR ANXIETY [facility] quetiapine 25 mg tablet TAKE 1 TABLET BY MOUTH AT BEDTIME FOR SLEEP FOR ANXIETY OR DEPRESSION quetiapine 25 mg tablet TAKE 1 TABLET BY MOUTH AT BEDTIME FOR SLEEP FOR ANXIETY OR DEPRESSION No quetiapine 25 mg tablet TAKE 1 TABLET BY MOUTH AT BEDTIME FOR SLEEP FOR ANXIETY OR DEPRESSION [facility] tizanidine 4 mg tablet TAKE 1 TABLET BY MOUTH THREE TIMES A DAY tizanidine 4 mg tablet TAKE 1 TABLET BY MOUTH THREE TIMES A DAY No tizanidine 4 mg tablet TAKE 1 TABLET BY MOUTH THREE TIMES A DAY [facility] tramadol 100 mg tablet TAKE 1 TABLET NEEDED ORALLY ONCE A DAY NEEDED 15 DAYS tramadol 100 mg tablet TAKE 1 TABLET NEEDED ORALLY ONCE A DAY NEEDED 15 DAYS No tramadol 100 mg tablet TAKE 1 TABLET NEEDED ORALLY ONCE A DAY NEEDED 15 DAYS [facility] No known medications No Un tin ity [facility] No known [facility] alprazolam 0.5 mg tablet alprazolam 0.5 mg tablet No alprazolam 0.5 mg tablet [facility] Vital Signs Vital Name Observation Time Observation Value Comments S silvino Body Weight 2025-01-04 00:00:00 2864 [oz_av] [facility] Height 2025-01-04 00:00:00 65 [in_i] [facility] BP Diastolic 2025-01-04 00:00:00 78 mm[Hg] [facility] BP Systolic 2025-01-04 00:00:00 116 mm[Hg] [facility] BMI (Body Mass Index) 2025-01-04 00:00:00 29.8 kg/m2 [facility] height 2024-12-23 08:30:00 66.5 [in_i] [facility] weight 2024-12-23 08:30:00 175 [lb_av] [facility] temperature 2024-12-23 08:30:00 97.7 [degF] [facility] bmi 2024-12-23 08:30:00 27.82 kg/m2 [facility] oximetry 2024-12-23 08:30:00 95 % Com[facility] blood pressure systolic 2024-12-23 08:30:00 112 mm[Hg] [facility] blood pressure diastolic 2024-12-23 08:30:00 60 mm[Hg] [facility] Systolic blood pressure 2024-09-24 02:22:00 116 mm[Hg] [facility] Diastolic blood pressure 2024-09-24 02:22:00 85 mm[Hg] [facility] Heart rate 2024-09-24 02:22:00 77 /min [facility] Body temperature 2024-09-24 02:22:00 36.94 Sharona [facility] Respiratory rate 2024-09-24 02:22:00 16 /min [facility] Oxygen saturation in Arterial blood by Pulse oximetry 2024-09-24 02:22:00 99 /min [facility] Body height 2024-09-23 21:53:00 165.1 cm [facility] Body weight 2024-09-23 21:53:00 74.844 kg [facility] BMI 2024-09-23 21:53:00 27.46 kg/m2 [facility] height 2024-07-24 13:20:00 66.5 [in_i] [facility] weight 2024-07-24 13:20:00 168.2 [lb_av] [facility] temperature 2024-07-24 13:20:00 97.9 [degF] Com [facility] bmi 2024-07-24 13:20:00 26.74 kg/m2 [facility] oximetry 2024-07-24 13:20:00 97 % [facility] blood pressure systolic 2024-07-24 13:20:00 140 mm[Hg] [facility] blood pressure diastolic 2024-07-24 13:20:00 80 mm[Hg] [facility] Body temperature 2022-12-19 21:47:00 36.33 Sharona [facility] Systolic blood pressure 2022-12-19 21:43:00 105 mm[Hg] [facility] Diastolic blood pressure 2022-12-19 21:43:00 71 mm[Hg] [facility] Heart rate 2022-12-19 21:43:00 99 /min [facility] Respiratory rate 2022-12-19 21:43:00 22 /min [facility] Body weight 2022-12-19 21:43:00 61.236 kg [facility] BMI 2022-12-19 21:43:00 22.12 kg/m2 [facility] Oxygen saturation in Arterial blood by Pulse oximetry 2022-12-19 21:43:00 97 /min [facility] Systolic blood pressure 2020-09-29 19:53:00 118 mm[Hg] [facility] Diastolic blood pressure 2020-09-29 19:53:00 77 mm[Hg] [facility] Heart rate 2020-09-29 19:53:00 79 /min [facility] Body height 2020-09-29 19:53:00 166.4 cm [facility] Systolic blood pressure 2020-09-12 20:05:00 136 mm[Hg] [facility] Diastolic blood pressure 2020-09-12 20:05:00 85 mm[Hg] [facility] Heart rate 2020-09-12 20:05:00 51 /min [facility] Body temperature 2020-09-12 20:05:00 36.67 Sharona [facility] Respiratory rate 2020-09-12 20:05:00 19 /min [facility] Oxygen saturation in Arterial blood by Pulse oximetry 2020-09-12 20:05:00 100 /min [facility] Body height 2020-09-08 15:11:00 165.1 cm [facility] Body weight 2020-09-08 15:11:00 61.2 kg [facility] BMI 2020-09-08 15:11:00 22.45 kg/m2 [facility] Systolic blood pressure 2020-09-06 16:15:00 115 mm[Hg] [facility] Diastolic blood pressure 2020-09-06 16:15:00 80 mm[Hg] [facility] Heart rate 2020-09-06 16:15:00 69 /min [facility] Body height 2020-09-06 16:15:00 165.1 cm [facility] Body weight 2020-09-06 16:15:00 61.236 kg [facility] BMI 2020-09-06 16:15:00 22.47 kg/m2 [facility] Systolic blood pressure 2020-06-08 12:56:00 120 mm[Hg] [facility] Diastolic blood pressure 2020-06-08 12:56:00 79 mm[Hg] [facility] Heart rate 2020-06-08 12:56:00 76 /min [facility] Body temperature 2020-06-08 12:56:00 36.67 Sharona [facility] Respiratory rate 2020-06-08 12:56:00 16 /min [facility] Body weight 2020-06-08 12:56:00 68.04 kg [facility] BMI 2020-06-08 12:56:00 24.96 kg/m2 [facility] Oxygen saturation in Arterial blood by Pulse oximetry 2020-06-08 12:56:00 98 /min [facility] Systolic blood pressure 2020-04-06 16:00:00 126 mm[Hg] [facility] Diastolic blood pressure 2020-04-06 16:00:00 71 mm[Hg] [facility] Heart rate 2020-04-06 16:00:00 74 /min [facility] Body temperature 2020-04-06 16:00:00 37.22 Sharona [facility] Respiratory rate 2020-04-06 16:00:00 20 /min [facility] Body height 2020-04-06 16:00:00 165.1 cm [facility] Body weight 2020-04-06 16:00:00 68.04 kg [facility] BMI 2020-04-06 16:00:00 24.96 kg/m2 [facility] Oxygen saturation in Arterial blood by Pulse oximetry 2020-04-06 16:00:00 100 /min [facility] Systolic blood pressure 2019-07-17 00:00:00 132 mm[Hg] [facility] Diastolic blood pressure 2019-07-17 00:00:00 76 mm[Hg] [facility] Heart rate 2019-07-17 00:00:00 66 /min [facility] Respiratory rate 2019-07-17 00:00:00 18 /min [facility] Oxygen saturation in Arterial blood by Pulse oximetry 2019-07-17 00:00:00 98 /min [place] [facility] Body temperature 2019-07-16 20:03:00 36.78 Sharona [facility] Body weight 2019-07-16 20:02:00 79.379 kg [facility] Weight 2013-04-14 00:39:00 752.96 KG Height 2013-04-14 00:39:00 165.1 CM Procedures Procedure Date / Time Performed Performing Clinician Source MAGNESIUM 2024-09-23 23:57:00 Tesfaye Whatlye [facility] TROPONIN I 2024-09-23 23:57:00 [facility] THYROID STIMULATING HORMONE 2024-09-23 23:57:00 Tesfaye Whatley [facility] COMP. METABOLIC PANEL ([id number]) 2024-09-23 23:57:[address] [facility] URINE DRUG (IMMUNOASSAY) - COMPREHENSIVE DRUG SCREEN 2024-09-23 23:57:[address] [facility] CBC WITH DIFF 2024-09-23 23:57:00 Chacorta [facility] URINALYSIS 2024-09-23 23:57:00 Tesfaye Whatley [facility] INFLUENZA A/B RSV COVID NAAT 2024-09-23 23:57:00 [facility] NOTICE OF PRIVACY PRACTICES 2021-07-02 19:00:14 Doctor Unassigned, Ponder [facility] CONSENT/REFUSAL FOR DIAGNOSIS AND TREATMENT 2021-07-02 18:59:56 Doctor Unassigned, Ponder [facility] XR FINGERS 2 VW RIGHT 2020-09-29 18:46:22 Carlos Eduardo Roca [facility] FL TIME OR (NON-REPORTABLE) 2020-09-12 19:39:39 Seth Roca [facility] FL TIME OR (NON-REPORTABLE) 2020-09-12 19:20:07 Seth Roca [facility] DAY SURGERY - ADC 2020-09-12 06:01:00 Doctor Ana ssigned, Ponder [facility] XR CHEST 2 VW 2020-09-09 19:40:29 [facility]REFUSAL FOR DIAGNOSIS AND TREATMENT 2020-09-09 19:21:16 Doctor Unassigned, Ponder [facility] ASSIGNMENT OF BENEFITS 2020-09-09 19:18:53 Docto r Unassigned, Ponder [facility] DSU PRE-OP 2020-09-08 05:01:00 Doctor Unass igned, Ponder [facility] ASSIGNMENT OF BENEFITS 2020-09-06 16:09:16 Docto r Unassigned, Ponder [facility] POCT TEST 2020-06-08 13:22:00 [facility] 2020-06-08 13:22:00 Jaret Webb [facility] HEPATIC FUNCTION PANEL ([id number]) (ALB,T.PRO,BILI T,BU/BC,ALT,AST,ALK PHOS) 2020-06-08 13:22:00 Tracey [facility] BASIC METABOLIC PANEL (NA, K, CL, CO2, GLUCOSE, BUN, CREATININE, CA) 2020-06-08 13:22:00 Tracey [facility] CBC WITH DIFF 2020-06-08 13:22:00 Jaret Webb [facility] URINALYSIS 2020-06-08 13:22:00 J[facility] [facility] RAPID STREP SCREEN FOR GROUP A 2020-04-06 16:23:00 Sun Castro [facility] NOTICE OF PRIVACY PRACTICES 2020-04-06 15:48:09 Doctor Unassigned, Ponder [facility] CONSENT/REFUSAL FOR DIAGNOSIS AND TREATMENT 2020-04-06 15:47:58 Doctor Unassigned, Ponder [facility] FREE T4 2019-07-16 20:51:00 [facility] THYROID STIMULATING HORMONE 2019-07-16 20:51:00 Jimbo Sommers [facility] HEPATIC FUNCTION PANEL (44374) (ALB,T.PRO,BILI T,BU/BC,ALT,AST,ALK PHOS) 2019-07-16 20:51:00 Jimbo Sommers [facility] BASIC METABOLIC PANEL (NA, K, CL, CO2, GLUCOSE, BUN, CREATININE, CA) 2019-07-16 20:51:00 Jimbo Sommers [facility] SALICYLATE 2019-07-16 20:51:00 Jimbo Sommers [facility] ETHANOL 2019-07-16 20:51:00 [facility] CBC WITH DIFFERENTIAL 2019-07-16 20:51:00 Last Sommers [facility] URINALYSIS 2019-07-16 20:51:00 Jimbo Sommers [facility] ADC / LCC - DRUG SCREEN TRIAGE 2019-07-16 20:51:00 Jimbo Sommers [facility] POCT TEST 2019-07-16 20:37:00 Quintin Sommers [facility] EKG-12 LEAD 2019-07-16 20:28:43 Jimbo Sommers [facility] NOTICE OF PRIVACY PRACTICES 2019-07-16 19:39:12 Doctor Unassigned, Ponder [facility] CONSENT/REFUSAL FOR DIAGNOSIS AND TREATMENT 2019-07-16 19:38:59 Doctor Unassigned, Ponder [facility] SKIN CLOSURE NEC 2013-04-14 00:00:00 [facility] Cholecystectomy [facility] Appendectomy [facility] Hernia Repair [facility] Clinics Encounters Start Date/Time End Date/Time Encounter Type Admission Type Attending Clinicians Care Facility Care Department Encounter ID Source 2025-01-01 14:36:00 Outpatient Dione Segal [facility] [id number] [facility] 2024-12-21 09:29:00 Outpatient Dione Segal [facility] [id number] [facility] 2024-07-24 13:16:00 Outpatient Dione Segal [facility] [id number] [facility] 2024-07-22 16:25:00 Outpatient Barber Saunders [facility] [id number] [facility] 2021-09-11 17:13:34 Emergency [facility] [id number] [facility] 2021-09-09 01:42:20 Outpatient R CHANELLESETH [facility] PADMINI [id number] [facility] 2025-02-01 09:20:00 2025-02-01 09:20:00 Outpatient ANNETTE ARREOLA [facility] [id number] [facility] 2025-01-13 00:00:00 2025-01-13 16:20:22 Letter (Out) Angelina Gallegos [facility] ([place]) 1.2.840.114 350.1.13.10 4.2.7.2.686 [id number] [facility] 2025-01-04 00:00:00 2025-01-04 00:00:00 Angelina Gallegos 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 [facility] [address] [facility] 2025-01-04 00:00:00 2025-01-04 00:00:00 (TEL) [facility] [id number] [facility] 2024-12-29 00:00:00 2024-12-29 00:00:00 (TEL) [facility] [id number] [facility] 2024-12-29 00:00:00 2024-12-29 00:00:00 (TEL) [facility] [id number] [facility] 2024-12-28 00:00:00 2024-12-28 00:00:00 (TEL) [facility] [id number] [facility] 2024-12-23 00:00:00 2024-12-23 00:00:00 (ESTPT) Establishe d Patient STLMLC STLMLC [id number] [facility] 2024-12-15 00:00:00 2024-12-15 00:00:00 (TEL) STLMLC STLMLC [id number] [facility] 2024-09-23 15:55:00 2024-09-23 20:27:00 Emergency X TESFAYE WHATLEY SHINTA [facility] ERT [id number] [facility] 2024-09-23 15:55:00 2024-09-23 20:27:00 Emergency Tesfaye Whatley [facility] 1.2.840.114 350.1.13.10 4.2.7.2.686 [id number] [facility] 2024-08-24 09:20:00 2024-08-24 09:20:00 Outpatient R ANNETTE ESPITIA [facility] [id number] [facility] 2024-08-04 00:00:00 2024-08-04 00:00:00 (TEL) STLMLC STLMLC [id number] [facility] 2024-07-29 00:00:00 2024-07-29 00:00:00 (TEL) STLMLC STLMLC [id number] [facility] 2024-07-27 00:00:00 2024-07-27 00:00:00 (TEL) STLMLC STLMLC [id number] [facility] 2024-07-24 00:00:00 2024-07-24 00:00:00 OFFICE VISIT NEW PT LEVEL 4 STLMLC STLMLC [id number] [facility] 2022-12-19 15:47:00 2022-12-19 18:02:00 Emergency X UTE SWAN [facility] ERT [id number] [facility] 2022-12-19 15:47:00 2022-12-19 18:02:00 Emergency Ute Swan [facility] 1.2.840.114 350.1.13.10 4.2.7.2.686 [id number] [facility] 2021-07-02 14:21:00 2021-07-02 15:17:00 Emergency [facility] 1.2.840.114 350.1.13.10 4.2.7.2.686 [id number] [facility] 2021-07-02 00:00:00 2021-07-02 00:00:00 Orders Only Doctor Unassigned, Ponder [facility] 1.2.840.114 350.1.13.10 4.2.7.2.686 [id number] [id number] [facility] 2021-07-02 00:00:00 2021-07-02 00:00:00 Orders Only Doctor Unassigned, Ponder [facility] 1.2.840.114 350.1.13.10 4.2.7.2.686 [id number] [id number] 2020-10-25 00:00:00 2020-10-25 00:00:00 Telephone Anali Boykin [facility] 1.2.840.114 350.1.13.10 4.2.7.2.686 [id number] [facility] 2020-10-25 00:00:00 2020-10-25 00:00:00 Telephone Anali Boykin [facility] 1.2.840.114 350.1.13.10 4.2.7.2.686 [id number] 2020-10-17 14:00:00 2020-10-17 14:00:00 Outpatient R ANALI BOYKIN [facility] [id number] [facility] 2020-10-14 00:00:00 2020-10-14 00:00:00 Telephone Anali Boykin [facility] 1.2.840.114 350.1.13.10 4.2.7.2.686 [id number] [facility] 2020-10-14 00:00:00 2020-10-14 00:00:00 Nurse Triage [facility] 1.2.840.114 350.1.13.10 4.2.7.2.686 [id number] [facility] 2020-10-14 00:00:00 2020-10-14 00:00:00 Telephone [facility] 1.2.840.114 350.1.13.10 4.2.7.2.686 [id number] 2020-10-14 00:00:00 2020-10-14 00:00:00 Nurse Triage [facility] 1.2.840.114 350.1.13.10 4.2.7.2.686 [id number] 2020-10-13 10:30:00 2020-10-13 10:30:00 [facility] [id number] [facility] 2020-10-04 00:00:00 2020-10-04 00:00:00 Clinic Assessment [facility] 1.2.840.114 350.1.13.10 4.2.7.2.686 [id number] 2020-10-04 00:00:00 2020-10-04 00:00:00 Clinic Assessment [facility] 1.2.840.114 350.1.13.10 4.2.7.2.686 [id number] [facility] 2020-10-03 14:00:00 2020-10-03 14:00:00 [facility] [id number] [facility] 2020-09-30 08:00:00 2020-09-30 08:00:00 [facility] [id number] [facility] 2020-09-30 07:42:57 2020-09-30 07:57:57 Ict Support Engineer Visit Pob, Adc Lab Main [facility] 1.2.840.114 350.1.13.10 4.2.7.2.686 [id number] [facility] 2020-09-30 00:00:00 2020-09-30 00:00:00 Telephone Lucretia [facility] [place] 1.2.840.114 350.1.13.10 4.2.7.2.686 [id number] 2020-09-30 00:00:00 2020-09-30 00:00:00 Telephone Lucretia [facility] rocco [place] 1.2.840.114 350.1.13.10 4.2.7.2.686 [id number] [facility] 2020-09-29 12:28:56 2020-09-29 23:59:00 Hospital Encounter Seth Roca [facility] 1.2.840.114 350.1.13.10 4.2.7.2.686 [id number] [facility] 2020-09-29 13:51:51 2020-09-29 15:05:33 Office Visit Anlai Boykin [facility] rocco [place] 1.2.840.114 350.1.13.10 4.2.7.2.686 [id number] [facility] 2020-09-29 13:45:00 2020-09-29 13:45:00 Outpatient R ANALI BOYKIN [facility] [id number] [facility] 2020-09-29 00:00:00 2020-09-29 00:00:00 Telephone Lucretia [facility] ro[facility] [place] 1.2.840.114 350.1.13.10 4.2.7.2.686 [id number] [facility] 2020-09-28 00:00:00 2020-09-28 00:00:00 Telephone Seth Roca [facility] rocco [place] 1.2.840.114 350.1.13.10 4.2.7.2.686 [id number] [facility] 2020-09-28 00:00:00 2020-09-28 00:00:00 Telephone Seth Roca [facility] rocco [place] 1.2.840.114 350.1.13.10 4.2.7.2.686 [id number] [facility] 2020-09-27 00:00:00 2020-09-27 00:00:00 Telephone Anali Boykin [facility] rocco [place] 1.2.840.114 350.1.13.10 4.2.7.2.686 [id number] [facility] 2020-09-26 16:00:00 2020-09-26 16:00:00 Outpatient R ANALI BOYKIN [facility] [id number] [facility] 2020-09-26 00:00:00 2020-09-26 00:00:00 Telephone Anali Boykin [facility] rocco [place] 1.2.840.114 350.1.13.10 4.2.7.2.686 [id number] [facility] 2020-09-23 10:15:00 2020-09-23 10:15:00 Outpatient R SETH ROCA [facility] [id number] [facility] 2020-09-19 00:00:00 2020-09-19 00:00:00 Telephone Seth Roca [facility] rocco [place] 1.2.840.114 350.1.13.10 4.2.7.2.686 [id number] [facility] 2020-09-12 08:14:00 2020-09-12 14:20:00 Hospital Encounter Seth Roca [facility] 1.2.840.114 350.1.13.10 4.2.7.2.686 [id number] [facility] 2020-09-12 00:00:00 2020-09-12 00:00:00 Orders Only Doctor Unassigned, Ponder [facility] 1.2.840.114 350.1.13.10 4.2.7.2.686 [id number] [facility] 2020-09-09 14:17:36 2020-09-09 23:59:00 Hospital Encounter Seth Roca [facility] 1.2.840.114 350.1.13.10 4.2.7.2.686 [id number] [facility] 2020-09-09 14:16:24 2020-09-09 14:31:24 Ict Support Engineer Visit Pob, Adc Lab Main Seth Roca [facility] 1.2.840.114 350.1.13.10 4.2.7.2.686 [id number] [facility] 2020-09-09 14:15:01 2020-09-09 14:30:01 Laboratory Only Only, Adc Test Lincoln Venkat [facility] 1.2.840.114 350.1.13.10 4.2.7.2.686 [id number] [facility] 2020-09-09 14:00:00 2020-09-09 14:00:00 Outpatient R SETH ROCA [facility] [id number] [facility] 2020-09-08 00:00:00 2020-09-08 00:00:00 Orders Only Doctor Unassigned, Ponder [facility] 1.2.840.114 350.1.13.10 4.2.7.2.686 [id number] [facility] 2020-09-07 00:00:00 2020-09-07 00:00:00 Prep For Surgery Seth Roca Shun [facility] ro[facility] [place] 1.2.840.114 350.1.13.10 4.2.7.2.686 [id number] [facility] 2020-09-06 11:10:09 2020-09-06 11:25:09 Office Visit Anali Boykin [facility] rocco [place] 1.2.840.114 350.1.13.10 4.2.7.2.686 [id number] [facility] 2020-09-06 10:00:00 2020-09-06 10:00:00 Outpatient R LUCRETIA ANALI [facility] [id number] [facility] 2020-09-06 00:00:00 2020-09-06 00:00:00 Orders Only Doctor Unassigned, Ponder [facility] 1.2.840.114 350.1.13.10 4.2.7.2.686 [id number] [facility] 2020-06-08 07:57:26 2020-06-08 09:17:00 Emergency Jaret [facility] 1.2.840.114 350.1.13.10 4.2.7.2.686 [id number] [facility] 2020-06-08 07:57:26 2020-06-08 07:57:26 Emergency X JARET WEBB [facility] ERT [id number] [facility] 2020-04-06 11:02:11 2020-04-06 12:59:00 Emergency Sun Castro [facility] 1.2.840.114 350.1.13.10 4.2.7.2.686 [id number] [facility] 2020-04-06 10:49:00 2020-04-06 10:49:00 Emergency X [facility] ERT [id number] [facility] 2020-04-06 00:00:00 2020-04-06 00:00:00 Orders Only Doctor Unassigned, Ponder [facility] 1.2.840.114 350.1.13.10 4.2.7.2.686 [id number] [facility] 2019-07-16 15:08:41 2019-07-16 20:56:00 Emergency Jimbo Sommers [facility] 1.2.840.114 350.1.13.10 4.2.7.2.686 [id number] [facility] 2019-05-20 16:15:00 2019-05-20 16:15:00 Outpatient [facility] [id number] [facility] 2019-05-07 15:30:00 2019-05-07 15:30:00 Outpatient [facility] [id number] [facility] 2019-05-07 14:28:00 2019-05-07 14:28:00 Outpatient [facility] [id number] [facility] 2019-05-06 11:28:00 2019-05-06 11:28:00 Outpatient [facility] [id number] [facility] 2019-05-05 14:00:00 2019-05-05 14:00:00 Outpatient [facility] [id number] [facility] 2019-04-28 09:30:00 2019-04-28 09:30:00 Outpatient [facility] [id number] [facility] 2019-04-24 10:53:00 2019-04-24 10:53:00 [facility] [id number] [facility] 2019-04-24 10:06:00 2019-04-24 10:06:00 [facility] [id number] [facility] 2019-01-12 10:00:00 2019-01-12 10:00:00 [facility] [id number] [facility] 2013-04-14 00:19:00 2013-04-14 03:12:00 Emergency E GILMA FONTANEZ [facility] [id number] [facility] Results Test Description Test Time Test [...] of the right middlefinger. [facility] [place] TIME OR (NON-REPORTABLE) 19:40:57 These images do not require a Radiology diagnostic report. [facility] [place] TIME OR (NON-REPORTABLE) 19:23:57 These images do not require a Radiology diagnostic report. [facility] XR CHEST 2 VW 19:56:49 No evidence [...] are seen.IMPRESSIONNo evidence of acute cardiopulmonary disease. [facility] (ALB, T.PRO, BILI T, BU/BC, ALT, AST, ALK PHOS)2020-06-08 13:47:00* Test Item Value Reference Range Interpretation Comme nts TOTAL BILI (test code = 0574386407) 0.3 mg/dL 0.1-1.1 BILI UNCON (test code = 9141940815) 0.5 mg/dL 0.1-1.1 BILI CONJ (test code = 5535349940) 0.0 mg/dL 0-0.3 T PROTEIN (test code = 2958062390) 7.1 g/dL 6.3-8.2 ALBUMIN (test code = 7026571444) 4.2 g/dL 3.5-5 ALK PHOS (test code = 0867384895) 53 U/L 34-122 ALTv (test code = 1742-6) 22 U/L 5-35 AST(SGOT) (test code = 4514090581) 32 U/L 13-40 Lab Interpretation (test cod e = 56305-5) Normal [facility] [id number] 13:47:00* Test Item Value Reference Range Interpretation Comme nts LIPASE (test code = 4604731899) 142 U/L 0-220 Lab Interpretation (test cod e = 59437-0) Normal [facility]ball[facility]inalysis2020-07-29 13:47:00* Test Item Value Reference Range Interpretation Comme nts APPEARANCE (test code = 9028975239) Clear Clear COLOR (test code = 8793955967) Straw Yellow A PH (test code = 0884475794) 4.8-8.0 SP GRAVITY (test code = 8681307544) 1.003-1.030 L GLU U QUAL (test code = 6868508184) Normal Normal BLOOD (test code = 3205025369) Negative Negative KETONES (test code = 0404853985) Negative Negative PROTEIN (test code = 2887-8) Negative Negative UROBILIN (test code = 2900483128) Normal Normal BILIRUBIN (test code = 9798840400) Negative Negative NITRITE (test code = 4698415499) Negative Negative LEUK MAYNOR (test code = 6509762187) Negative Negative RBC/HPF (test code = 2168073529) <1 See_Comment [Automated messa ge] The system which generated this result transmitted reference range: 0 - 3 HPF. The reference range was not used to interpret this result as normal/abnormal. WBC/HPF (test code = 5454723826) <1 See_Comment [Automated messa ge] The system which generated this result transmitted reference range: 0 - 5 HPF. The reference range was not used to interpret this result as normal/abnormal. BACTERIA (test code = 4849858602) Negative Negative SQ EPITH (test code = 7605270520) <1 See_Comment [Automated messa ge] The system which generated this result transmitted reference range: <=2 HPF. The reference range was not used to interpret this result as normal/abnormal. Lab Interpretation (test code = 91951-7) Abnormal [facility] with Poaayklbvdvv8583-33-30 13:37:00* Test Item Value Reference Range Interpretation [...] g/dL 31.6-35.1 L RDW-SD (test code = 58565-7) 42.9 fL 39-49.9 RDW-CV (test code = 788-0) 16.6 % 12-15.5 H PLT (test code = 777-3) See_Comment [Automated [employer]] The system which generated this result transmitted reference range: 166 - 358 10*3/?L. The reference range was not used to interpret this result as normal/abnormal. MPV (test code = 12692-0) 9.3 fL 9.5-12.9 L NRBC/100 WBC (test code = 9606929173) See_Comment [Automated [employer] ssage] The system which generated this result transmitted reference range: 0.0 - 10.0 /100 WBCs. The reference range was not used to interpret this result as normal/abnormal. NRBC x10^3 (test code = 7422467180) <0.01 See_Comment [Automated [employer]] The system which generated this result transmitted reference range: 10*3/?L. The reference range was not used to interpret this result as normal/abnormal. GRAN MAT (NEUT) % (test code = 770-8) 55.7 % IMM GRAN % (test code = 8479309948) 0.20 % LYMPH % (test code = 736-9) 30.8 % MONO % (test code = 5905-5) 10.2 % EOS % (test code = 713-8) 2.1 % BASO % (test code = 706-2) 1.0 % GRAN MAT x10^3(ANC) (test code = 1197500187) 3.40 10*3/uL 1.88-7.09 IMM GRAN x10^3 (test code = 1272056313) <0.03 0-0.06 LYMPH x10^3 (test code = 731-0) 1.88 10*3/uL 1.32-3.29 MONO x10^3 (test code = 742-7) 0.62 10*3/uL 0.33-0.92 EOS x10^3 (test code = 711-2) 0.13 10*3/uL 0.03-0.39 BASO x10^3 (test code = 704-7) 0.06 10*3/uL 0.01-0.07 Lab Interpretation (test code = 54308-9) Abnormal [facility]ball[facility] [id number] 13:22:00* Test Item Value Reference Range Interpretation Comme nts POCT PREG (test code = 1605) NEGATIVE On board controls acceptable with C Line (test code = 3574) PRESENT POCT PREG LOT # (test code = 3575) [id number] POCT PREG TEST DATE ( test code = 3576) 08/10/2021 Lab Interpretation (test cod e = 30422-0) Normal [facility]ball[facility] STREP SCREEN FOR GROUP [id number] 16:56:00* Test Item Value Reference Range Interpretation Comme nts Streptococcus pyogenes (grou p A) antigen (test code = 72711-4) Negative Negative Lab Interpretation (test cod e = 04293-7) Normal [facility] TomballUrinalysis2019-09-05 22:17:00* Test Item Value Reference Range Interpretation Comme nts APPEARANCE (test code = 1956319959) Clear Clear COLOR (test code = 7338612307) Yellow Yellow PH (test code = 7368353186) 4.8-8.0 SP GRAVITY (test code = 6189534232) 1.003-1.030 GLU U QUAL (test code = 2770516876) Negative Negative BLOOD (test code = 2667988497) Trace Negative A KETONES (test code = 0933849587) Trace Negative A PROTEIN (test code = 2887-8) Negative Negative UROBILIN (test code = 3170190755) 0.2 mg/dL See_Comment [Automated messa ge] The system which generated this result transmitted reference range: 0-1.0 mg/dL. The reference range was not used to interpret this result as normal/abnormal. BILIRUBIN (test code = 0547665669) Small Negative A NITRITE (test code = 0916705925) Negative Negative LEUK MAYNOR (test code = 3515326679) Negative Negative RBC/HPF (test code = 2544766804) See_Comment [Automated messa ge] The system which generated this result transmitted reference range: 0 - 3 HPF. The reference range was not used to interpret this result as normal/abnormal. WBC/HPF (test code = 9585191705) See_Comment [Automated messa ge] The system which generated this result transmitted reference range: 0 - 5 HPF. The reference range was not used to interpret this result as normal/abnormal. BACTERIA (test code = 4936886307) Negative Negative AMORPHOUS (test code = 1196070588) Few HPF SQ EPITH (test code = 5454053945) HPF Ictotest (test code = 3051762818) Negative Lab Interpretation (test code = 12081-0) Abnormal [facility] TomballTHYROID STIMULATING [id number] 22:15:00 * Test Item Value Reference Range Interpretation Comme nts TSH (test code = 1631047306) See_Comment [Automated messa ge] The system which generated this result transmitted reference range: 0.45 - 4.70 mIU/L. The reference range was not used to interpret this result as normal/abnormal. Lab Interpretation (test code = 33006-7) Normal [facility]ballFR [id number] 22:01:00* Test Item Value Reference Range Interpretation Comme nts FREE T4 (test code = 5134768936) 1.34 ng/dL 0.78-2.2 Lab Interpretation (test cod e = 42596-4) Normal [facility] [id number] 21:59:00* Test Item Value Reference Range Interpretation Comme nts BENZO U (test code = 0359580193) Presumptive Positive Negative A ILEANA U (test code = 1019012081) Negative Negative AMPHET (test code = 9228765360) Negative Negative THC (test code = 8462716692) Negative Negative METHADONE (test code = 3162743325) Negative Negative Meth U (test code = 5905665375) Negative Negative OPIATES (test code = 2277566184) Negative Negative Cocaine Metabolite (test code = 9700679807) Presumptive Positive Negative A PROPOXY (test code = 2346215234) Negative Negative Tric U (test code = 1927944770) Negative Negative PCP (test code = 9320673626) Negative Negative OXYCOD (test code = 0807168586) Negative Negative LUCY (test code = LUCY) [...] legal testing). Lab Interpretation (test code = 96071-1) Abnormal [facility]ballETHANOL2019-09-05 21:54:00* Test Item Value Reference Range Interpretation Comme nts ALCOHOL (test code = 1200125590) <10 mg/dL LUCY (test code = LUCY) <10 Ebrurxeb04-235 Toxic>100 Depression of AIRCRAFT ENGINE MECHANIC>400 Fatalities Reported [facility] TomballSALICYLATE2019-09-05 21:54:00* Test Item Value Reference Range Interpretation Comme nts SALICYLATE (test code = 2082167269) <10 mg/L LUCY (test code = LUCY) Therapeutic Range: ? Analgesic and Antipyretic Use? 20-100 mg/L? Anti-Inflammatory Use? 100-250 mg/LToxic Range:? Greater than 300 mg/L [facility]54:00* Test Item Value Reference Range Interpretation Comme nts ACETAMINOP (test code = 7457424559) <10.0 10-30 L LUCY (test code = LUCY) Toxic: Greater derek n 200 ug/mL @ 4 hour post ingestion or greater than 50 ug/mL @ 12 hour post ingestion Lab Interpretation (test code = 71753-4) Abnormal [facility] (ALB, T.PRO, BILI T, BU/BC, ALT, AST, ALK PHOS)2019-07-16 21:43:00* Test Item Value Reference Range Interpretation Comme nts TOTAL BILI (test code = 3637054473) 0.2 mg/dL 0.1-1.1 BILI UNCON (test code = 4409887214) 0.2 mg/dL 0.1-1.1 BILI CONJ (test code = 5178129569) 0.0 mg/dL 0-0.3 T PROTEIN (test code = 7892287346) 7.2 g/dL 6.3-8.2 ALBUMIN (test code = 2898477563) 4.4 g/dL 3.5-5 ALK PHOS (test code = 5549824018) 54 U/L 34-122 ALT(SGPT) (test code = 7772614546) 26 U/L 9-51 AST(SGOT) (test code = 3554807303) 25 U/L 13-40 Lab Interpretation (test cod e = 39162-1) Normal [facility] (NA, K, CL, CO2, GLUCOSE, BUN, CREATININE, CA)2019-07-16 21:42:00* Test Item Value Reference Range Interpretation Comme nts NA (test code = 0717060869) 148 mmol/L 135-145 H K (test code = 9628811322) 3.4 mmol/L 3.5-5 L CL (test code = 5915529878) 113 mmol/L 98-108 H CO2 TOTAL (test code = 7448896369) 25 mmol/L 23-31 AGAP (test code = 8820021019) 2-16 BUN (test code = 2395858939) 11 mg/dL 7-23 GLUCOSE (test code = 6331740051) 98 mg/dL 70-110 CREATININE (test code = 6840366290) 0.78 mg/dL 0.5-1.04 CALCIUM (test code = 1345787617) 9.2 mg/dL 8.6-10.6 eGFR Calculation (Non-) (test code = 8989996619) mL/min/1.73m2 eGFR Calculation () (test code = 7192113785) mL/min/1.73m2 LUCY (test code = LUCY) Association [...] imaging tests). Lab Interpretation (test code = 68460-8) Abnormal [facility] WITH [id number] 21:24:00* Test Item Value Reference Range Interpretation Comme nts WBC (test code = 6690-2) See_Comment L [Automated [employer]] The system which generated this result transmitted reference range: 4.30 - 11.10 10*3/?L. The reference range was not used to interpret this result as normal/abnormal. RBC (test code = 789-8) See_Comment [Automated [employer]] The system which generated this result transmitted [...] g/dL 31.6-35.1 L RDW-SD (test code = 77118-1) 51.6 fL 39-49.9 H RDW-CV (test code = 788-0) 20.4 % 12-15.5 H PLT (test code = 777-3) See_Comment [Automated messa ge] The system which generated this result transmitted reference range: 166 - 358 10*3/?L. The reference range was not used to interpret this result as normal/abnormal. MPV (test code = 71828-0) 9.2 fL 9.5-12.9 L NRBC/100 WBC (test code = 2838376845) See_Comment [Automated [employer] ssage] The system which generated this result transmitted reference range: 0.0 - 10.0 /100 WBCs. The reference range was not used to interpret this result as normal/abnormal. NRBC x10^3 (test code = 4389247837) <0.01 See_Comment [Automated messa ge] The system which generated this result transmitted reference range: 10*3/?L. The reference range was not used to interpret this result as normal/abnormal. GRAN MAT (NEUT) % (test code = 770-8) 58.7 % IMM GRAN % (test code = 6739959765) 0.30 % LYMPH % (test code = 736-9) 24.1 % MONO % (test code = 5905-5) 15.5 % EOS % (test code = 713-8) 0.8 % BASO % (test code = 706-2) 0.6 % GRAN MAT x10^3(ANC) (test code = 3072934716) 2.12 10*3/uL 1.88-7.09 IMM GRAN x10^3 (test code = 5619654321) <0.03 0-0.06 LYMPH x10^3 (test code = 731-0) 0.87 10*3/uL 1.32-3.29 L MONO x10^3 (test code = 742-7) 0.56 10*3/uL 0.33-0.92 EOS x10^3 (test code = 711-2) 0.03 10*3/uL 0.03-0.39 BASO x10^3 (test code = 704-7) <0.03 0.01-0.07 Lab Interpretation (test code = 33044-5) Abnormal [facility]ball[facility] Test, [id number] 20:37:00 * Test Item Value Reference Range Interpretation Comme nts POCT PREG (test code = 1605) negative On board controls acceptable with C Line (test code = 3574) present POCT PREG LOT # (test code = 3575) [id number] POCT PREG TEST DATE ( test code = 3576) 11/10/2020 Lab Interpretation (test cod e = 16881-2) Normal [facility] Notes Date/Time Note Provider Source 2024-09-23 20:26:23 Awake, alert oriented X4, respirations even and unlabored,skin w/d color appropriate for race, moves all ext well, pt encouraged to follow up with pcp and or return as needed. Pt given printed and verbal discharge instructions regarding urinary tract infection with hematuria, palpitations, and anxiety , patient verbalized understanding and signature obtained, patient denies any other concerns. Prescriptions provided. Discussed antibiotic therapy and to take until all completed unless adverse reaction occurs - if occurs, discontinue medication and follow up with pcp/seek medical attention Advised to seek medical attention for new/prolonged/worsening of symptoms. No adverse reaction to meds given in ER noted upon discharge. Pt ambulated to the lobby with steady gait. R Lemon RN [facility] 2024-09-23 18:56:00 Assumed care of patient, received report from ALEKSEY Turner. Pt A&OX4, Respiratory even & unlabored. Skin W&D and normal color, NAD noted at present. IV catheter partially exposed, no redness or swelling noted. Pt denies any concerns at this time. Call light given to patient. Pt awaiting labs results. [facility] 2024-09-23 15:51:18 CC: patient presents to the ER with complaints of high blood pressure and heart rate that began about 1.5 weeks ago. Patient states she has a lot of stressors in her life including the of her son from and fentanyl overdose. Awake, alert, oriented, resp reg unlabored, skin warm and dry, color appropriate for race, moves all ext without difficulty, amb without assistance. Appears in no distress. R Martínez RN [facility]"
[2025-02-22] MEDS ORDERED: FAMOTIDINE 20 MG TAB ONE (11:13)
[2025-02-22] MEDS ORDERED: DIPHENHYDRAMINE 25 MG TAB/CAP ONE (11:13)
[2025-02-22] MEDS ORDERED: METHYLPREDNISOLONE 125 MG INJ ONE (11:13)
--- NOTE | 2025-02-22 11:28 | ER ---
Nurse's Notes [facility] Name: Jennifer Salazar Age: 49 yrs Sex: Female : 1975 Arrival Date: 02/22/2025 Time: 10:58 Bed 5 Private MD: Diagnosis: Allergy, unspecified;Allergic urticaria Presentation: 02/22 11:08 Chief complaint: Patient states: Rash with itching to face, head, and arms since ll1 yesterday. Was doing yard work, exposed to [place]. Coronavirus screen: Client denies travel out of the [place] in the last 14 days. At this time, the client does not indicate any symptoms associated with coronavirus-19. Ebola Screen: Patient denies travel to an Ebola-affected area in the 21 days before illness onset. Initial Sepsis Screen: Does the patient meet any 2 criteria? No. Patient's initial sepsis screen is negative. Does the patient have a suspected source of infection? No. Patient's initial sepsis screen is negative. Risk Assessment: Do you want to hurt yourself or someone else? Patient reports no desire to harm self or others. Onset of symptoms was February 21, 2025. 11:08 Method Of Arrival: Ambulatory ll1 11:08 Acuity: BECKY 4 ll1 Triage Assessment: 11:10 General: Appears uncomfortable, Behavior is calm, cooperative, appropriate for age. ll1 Pain: Complains of pain in face Pain currently is 8 out of 10 on a pain scale. Quality of pain is described as burning. EENT: Reports itching, swelling to eyelids. Derm: Reports rash with itching to face, head, and arms. Historical: - Allergies: 11:09 Naproxen; ll1 - PMHx: 11:09 Anxiety; Bipolar disorder; Depression; Schizophrenia; ll1 - PSHx: 11:09 Appendectomy; Cholecystectomy; tubal ligation; ll1 - Immunization history:: Adult Immunizations up to date. - Infectious Disease History:: Denies. - Social history:: Smoking status: Patient reports the use of cigarette tobacco products, smokes .25 packs per day. Screenin:32 [facility] ED Fall Risk Assessment (Adult) History of falling in the last 3 months, iw including since admission No falls in past 3 months (0 pts) Confusion or Disorientation No (0 pts) Intoxicated or Sedated No (0 pts) Impaired Gait No (0 pts) Mobility Assist Device Used No (0 pt) Altered Elimination No (0 pt) Score/Fall Risk Level 0 - 2 = Low Risk Oriented to surroundings, Maintained a safe environment. Abuse screen: Denies threats or abuse. Nutritional screening: No deficits noted. Tuberculosis screening: No symptoms or risk factors identified. Assessment: 11:19 Reassessment: No changes from previously documented assessment. Patient and/or family ll1 updated on plan of care and expected duration. Pain level reassessed. Patient is alert, oriented x 3, equal unlabored respirations, skin warm/dry/pink. 11:32 Reassessment: Patient states feeling better. iw Vital Signs: 11:08 BP 155 / 108; Pulse 72; Resp 17; Temp 98; Pulse Ox 97% ; Weight 79.38 kg; Height 5 ft. ll1 5 in. ; Pain 8/10; 11:08 Body Mass Index 29.12 (79.38 kg, 165.1 cm) ll1 11:08 Pain Scale: Adult ll1 ED Course: 11:01 Patient arrived in ED. al6 11:03 Bruce Wright PA is PHCP. cp 11:03 Tray Cheng MD is Attending Physician. cp 11:04 Arm band placed on Patient placed in an exam room, on a stretcher. ll1 11:09 Triage completed. ll1 11:31 Marian Dawson, ALEKSEY is Primary Nurse. iw 11:32 Patient has correct armband on for positive identification. Provided Education on: HIV iw Consent. 11:32 No provider procedures requiring assistance completed. Patient did not have IV access iw during this emergency room visit. Administered Medications: 11:19 Drug: MethylPREDNISolone Sodium Succinate IM 125 mg IM once Route: IM; Site: right ll1 gluteus; 11:33 Follow up: Response: No adverse reaction iw 11:19 Drug: diphenhydrAMINE PO 50 mg PO once Route: PO; ll1 11:33 Follow up: Response: No adverse reaction iw 11:19 Drug: Famotidine PO 20 mg PO once Route: PO; ll1 11:33 Follow up: Response: No adverse reaction iw Medication: 11:32 VIS not applicable for this client. iw Outcome: :28 Discharge ordered by . cp 11:32 Discharged to home ambulatory, iw 11:32 Condition: good 11:32 Discharge instructions given to patient, Instructed on discharge instructions, follow up and referral plans. medication usage, Demonstrated understanding of instructions, follow-up care, medications, Prescriptions given X 2, 11:33 Patient left the ED. iw Signatures: Marian Dawson, RN RN iw Bruce Wright PA PA cp Lewis, Lynsay, RN RN ll1 Aparna Kwon6
--- NOTE | 2025-02-22 11:28 | EDPHYS ---
Physician Documentation [facility] Name: Jennifer Salazar Age: 49 yrs Sex: Female : 1975 Arrival Date: 02/22/2025 Time: 10:58 Bed 5 Private MD: ED Physician Tray Cheng HPI: 02/22 11:06 This 49 yrs old Female presents to ER via Unassigned with complaints of Eye Swelling, cp rash. 11:06 mild swelling of skin above eyes. cp Historical: - Allergies: 11:09 Naproxen; ll1 - PMHx: 11:09 Anxiety; Bipolar disorder; Depression; Schizophrenia; ll1 - PSHx: 11:09 Appendectomy; Cholecystectomy; tubal ligation; ll1 - Immunization history:: Adult Immunizations up to date. - Infectious Disease History:: Denies. - Social history:: Smoking status: Patient reports the use of cigarette tobacco products, smokes .25 packs per day. ROS: 11:10 Constitutional: Negative for body aches, chills, fever, poor PO intake, cp 11:10 Skin: Positive for rash, of the neck, mild swelling above eyes, cp Vital Signs: 11:08 BP 155 / 108; Pulse 72; Resp 17; Temp 98; Pulse Ox 97% ; Weight 79.38 kg; Height 5 ft. ll1 5 in. ; Pain 8/10; 11:08 Body Mass Index 29.12 (79.38 kg, 165.1 cm) ll1 11:08 Pain Scale: Adult ll1 MDM: 11:28 Medical Screening Exam initiated cp Administered Medications: 11:19 Drug: MethylPREDNISolone Sodium Succinate IM 125 mg IM once Route: IM; Site: right ll1 gluteus; 11:33 Follow up: Response: No adverse reaction iw 11:19 Drug: diphenhydrAMINE PO 50 mg PO once Route: PO; ll1 11:33 Follow up: Response: No adverse reaction iw 11:19 Drug: Famotidine PO 20 mg PO once Route: PO; ll1 11:33 Follow up: Response: No adverse reaction iw Disposition: 17:33 Co-signature as Attending Physician, Tray Cheng MD I reviewed the patient's care rn provided by the Advanced Practice Provider and agree with the diagnosis and treatment plan. Disposition Summary: 02/22/25 11:28 Discharge Ordered Notes: Location: Home cp Problem: new cp Symptoms: have improved cp Condition: Stable cp Diagnosis - Allergy, unspecified cp - Allergic urticaria cp Followup: cp - With: Private Physician - When: 2 - 3 days - Reason: Worsening of condition Discharge Instructions: - Discharge Summary Sheet cp - Allergies, Adult cp - Hives cp Forms: - Medication Reconciliation Form cp - Antibiotic Education cp - Prescription Opioid Use cp - Patient Portal Instructions cp - Leadership Thank You Letter cp Prescriptions: - Pepcid 20 mg Oral Tablet - take 1 tablet ORAL route every 12 hours for 10 days; 20 tablet; Refills: 0, cp Product Selection Permitted - Prednisone 20 mg Oral tablet - take 3 tablet ORAL route once daily for 5 days; 15 tablet; Refills: 0, Product cp Selection Permitted Signatures: Tray Cheng MD MD rn Page, Corey, PA PA cp Lewis, Lynsay RN RN ll1 Marian Dawson RN iw
[2025-02-22 11:37] VITALS: BP 155/108; TEMP 98; O2SAT 97
== END 2025-02-22 11:33 | disposition home or self-care (01) ==
LOC: ER 10:58
DX: L50.0 Allergic urticaria (principal); F17.210 Nicotine dependence, cigarettes, uncomplicated
CPT/HCPCS: 96372; 99284; J2919